=== PATIENT | female | born 1950 | race Caucasian/White ===

== ENCOUNTER → 2016-10-16 | Outpatient (REF) | payer BC, MEDICARE ==
[2016-10-16 15:51] LABS: INR 3.07
== END ==
LOC: M SFHCLACO 14:54
PROVIDERS: ATTEND Physician Assistant
DX: I48.91 Unspecified atrial fibrillation (principal); Z51.81 Encounter for therapeutic drug level monitoring; Z79.01 Long term (current) use of anticoagulants

== ENCOUNTER → 2016-11-20 | Outpatient (CLI) | payer BC, MEDICARE ==
--- NOTE | 2016-11-20 12:56 | REPMRS ---
Patient History The patient states she had a clinical breast exam in 08/2016. Patient is postmenopausal. No known family history of cancer. Digital Woman Screen Mammo: November 20, 2016 - Exam #: [id number] Bilateral CC and MLO view(s) were taken. Technologist: Michelle Cotto, Technologist Prior study comparison: November 08, 2015, digital woman screen mammo performed at [facility]. September 28, 2014, digital woman screen mammo performed at [facility]. FINDINGS: There are scattered fibroglandular densities. There has been no change in the appearance of the mammogram from the prior studies. There is a mild amount of residual fibroglandular tissue which is fairly symmetric. There is no interval development of dominant mass, architectural distortion, or clustered microcalcification suggestive of malignancy. There are scattered, small, benign calcifications of doubtful clinical significance. There are benign arterial calcifications noted in each breast. No significant changes when compared with prior studies. ASSESSMENT: BI-RADS/ACR category 2 mammogram. Benign finding(s). Recommendation Routine screening mammogram in 1 year (for women over age 40). This mammogram was interpreted with the aid of an FDA-approved computer-aided dectection system. A. Negative x-ray reports should not delay biopsy if a dominant or clinically suspicious mass is present. B. Four to eight percent of cancers are not identified by mammography. C. Adenosis and dense breast may obscure an underlying neoplasm. Electronically Signed By: Rigo Saini MD 11/20/16 [id number]
== END ==
LOC: M WHC 11:16
PROVIDERS: ATTEND Nurse Practitioner Women's Health
DX: Z12.31 Encounter for screening mammogram for malignant neoplasm of breast (principal); Z78.0 Asymptomatic menopausal state

== ENCOUNTER → 2016-11-20 | Outpatient (REF) | payer BC, MEDICARE ==
[2016-11-20 15:23] LABS: INR 2.67
== END ==
LOC: M SFHCLACO 09:14
PROVIDERS: ATTEND Physician Assistant
DX: I48.91 Unspecified atrial fibrillation (principal); Z51.81 Encounter for therapeutic drug level monitoring; Z79.01 Long term (current) use of anticoagulants

== ENCOUNTER → 2016-12-18 | Outpatient (REF) | payer BC, MEDICARE ==
[2016-12-18 15:33] LABS: INR 3.18
[2016-12-18 15:34] LABS: ALBUMIN 3.7 GM/DL (3.2-5.2); ALBUMIN/GLOBULIN RATIO 1.28 (1.00-1.93); BILIRUBIN,TOTAL 0.3 MG/DL (0.2-1.0); CALCIUM LEVEL 8.3 MG/DL (8.8-10.2); CREATININE FOR GFR 1.15 MG/DL (0.55-1.02); GLOMERULAR FILTRATION RATE 50.1 (>45); POTASSIUM SERUM 4.7 MEQ/L (3.5-5.1); TOTAL PROTEIN 6.6 GM/DL (6.4-8.2)
== END ==
LOC: M SFHCLACO 09:29
PROVIDERS: ATTEND Physician Assistant
DX: I48.91 Unspecified atrial fibrillation (principal); I10 Essential (primary) hypertension; Z51.81 Encounter for therapeutic drug level monitoring; Z79.01 Long term (current) use of anticoagulants; E55.9 Vitamin D deficiency, unspecified

== ENCOUNTER → 2017-01-15 | Outpatient (REF) | payer BC, MEDICARE ==
[2017-01-15 17:20] LABS: INR 2.93
[2017-01-15 17:37] LABS: MAGNESIUM LEVEL 2.3 MG/DL (1.8-2.4); POTASSIUM SERUM 5.1 MEQ/L (3.5-5.1)
== END ==
LOC: M SFHCLACO 08:35
PROVIDERS: ATTEND Physician Assistant
DX: L03.116 Cellulitis of left lower limb (principal); E87.8 Other disorders of electrolyte and fluid balance, not elsewhere classified; Z51.81 Encounter for therapeutic drug level monitoring; Z79.01 Long term (current) use of anticoagulants

== ENCOUNTER 2017-02-16 15:14 | Emergency (ER) | payer BC ==
[~2017-02-16] VITALS: Ht 162.6 cm; Wt 118.8 kg
[2017-02-16 15:15] VITALS: BP 156/69
[2017-02-16] MEDS ORDERED: FURO40TA2 (15:29)
[2017-02-16] MEDS ORDERED: VITA50003 (15:29)
[2017-02-16] MEDS ORDERED: CETI10TA (15:29)
[2017-02-16] MEDS ORDERED: WARF4TAB52 (15:29)
[2017-02-16] MEDS ORDERED: VERA24TASA (15:29)
[2017-02-16] MEDS ORDERED: LISI40TAB (15:29)
== END 2017-02-16 16:11 | disposition home or self-care (01) ==
LOC: M ED 15:51
DX: R06.9 Unspecified abnormalities of breathing (principal); Z51.89 Encounter for other specified aftercare; I48.91 Unspecified atrial fibrillation; Z79.01 Long term (current) use of anticoagulants; Z79.899 Other long term (current) drug therapy; Z88.6 Allergy status to analgesic agent

== ENCOUNTER → 2017-02-19 | Outpatient (REF) | payer BC, MEDICARE ==
[~2017-02-19] MED LIST: CETI10TA; FURO40TA2; LISI40TAB; VERA24TASA; VITA50003; WARF4TAB52
== END ==
LOC: M SFHCLACO 15:01
PROVIDERS: ATTEND Physician Assistant
DX: Z51.81 Encounter for therapeutic drug level monitoring (principal); Z79.01 Long term (current) use of anticoagulants

== ENCOUNTER → 2017-03-12 | Outpatient (REF) | payer BC, MEDICARE ==
[2017-03-12 15:49] LABS: INR 2.23
== END ==
LOC: M SFHCLACO 15:11
PROVIDERS: ATTEND Physician Assistant
DX: I48.91 Unspecified atrial fibrillation (principal); Z51.81 Encounter for therapeutic drug level monitoring; Z79.01 Long term (current) use of anticoagulants

== ENCOUNTER → 2017-04-09 | Outpatient (REF) | payer BC ==
[~2017-04-09] MED LIST changes: +VITA1CAP40; -VITA50003
[2017-04-09 15:26] LABS: INR 2.58
== END ==
LOC: M SFHCLACO 14:49
PROVIDERS: ATTEND Physician Assistant
DX: Z51.81 Encounter for therapeutic drug level monitoring (principal); Z79.01 Long term (current) use of anticoagulants

== ENCOUNTER → 2017-05-02 | Outpatient (REF) | payer BC, MEDICARE ==
[2017-05-02 16:36] LABS: INR 2.55
== END ==
LOC: M SFHCLACO 09:22
PROVIDERS: ATTEND Physician Assistant
DX: Z51.81 Encounter for therapeutic drug level monitoring (principal); Z79.01 Long term (current) use of anticoagulants; I48.91 Unspecified atrial fibrillation

== ENCOUNTER → 2017-05-28 | Outpatient (REF) | payer BC, MEDICARE ==
[2017-05-28 15:17] LABS: INR 2.72
== END ==
LOC: M LABDRWLA 14:50
PROVIDERS: ATTEND Physician Assistant
DX: Z51.81 Encounter for therapeutic drug level monitoring (principal); Z79.01 Long term (current) use of anticoagulants; I48.91 Unspecified atrial fibrillation

== ENCOUNTER → 2017-07-09 | Outpatient (REF) | payer BC, MEDICARE ==
[2017-07-09 15:29] LABS: INR 2.91
== END ==
LOC: M SFHCLACO 14:37
PROVIDERS: ATTEND Physician Assistant
DX: I48.91 Unspecified atrial fibrillation (principal); Z51.81 Encounter for therapeutic drug level monitoring; Z79.01 Long term (current) use of anticoagulants

== ENCOUNTER → 2017-09-03 | Outpatient (REF) | payer BC ==
[2017-09-03 16:09] LABS: INR 3.12
== END ==
LOC: M SFHCLACO 15:30
PROVIDERS: ATTEND Physician Assistant
DX: Z51.81 Encounter for therapeutic drug level monitoring (principal); Z79.01 Long term (current) use of anticoagulants

== ENCOUNTER → 2017-09-17 | Outpatient (REF) | payer BC ==
[2017-09-17 15:03] LABS: INR 2.58
== END ==
LOC: M SFHCLACO 14:34
PROVIDERS: ATTEND Physician Assistant
DX: Z79.01 Long term (current) use of anticoagulants (principal); I48.91 Unspecified atrial fibrillation

== ENCOUNTER → 2017-10-15 | Outpatient (REF) | payer BC ==
[2017-10-15 16:54] LABS: INR 3.04; PROTHROMBIN TIME 32.8 SECONDS (12.4-14.5)
== END ==
LOC: M SFHCLACO 16:06
DX: Z79.01 Long term (current) use of anticoagulants (principal); I48.91 Unspecified atrial fibrillation
CPT/HCPCS: 85610

== ENCOUNTER → 2017-10-22 | Outpatient (CLI) | payer BC, MEDICARE | LOC: M PAIN 13:00 | DX: G89.29 Other chronic pain (principal); M46.96 Unspecified inflammatory spondylopathy, lumbar region; M51.26 Other intervertebral disc displacement, lumbar region; I10 Essential (primary) hypertension; I48.91 Unspecified atrial fibrillation; J45.909 Unspecified asthma, uncomplicated; M19.90 Unspecified osteoarthritis, unspecified site; L40.9 Psoriasis, unspecified; Z79.01 Long term (current) use of anticoagulants; Z79.899 Other long term (current) drug therapy; Z88.6 Allergy status to analgesic agent; Z88.8 Allergy status to other drugs, medicaments and biological substances | CPT/HCPCS: G0463 ==

== ENCOUNTER → 2017-10-29 | Outpatient (REF) | payer BC, MEDICARE ==
[2017-10-29 15:56] LABS: PROTHROMBIN TIME 30.7 SECONDS (12.4-14.5)
== END ==
LOC: M SFHCLACO 10:01
DX: Z51.81 Encounter for therapeutic drug level monitoring (principal)
CPT/HCPCS: 85610

== ENCOUNTER → 2017-11-26 | Outpatient (CLI) | payer BC, MEDICARE | LOC: M WHC 11:31 | DX: Z12.31 Encounter for screening mammogram for malignant neoplasm of breast (principal) ==

== ENCOUNTER → 2017-12-03 | Outpatient (REF) | payer BC, MEDICARE ==
[2017-12-03 15:17] LABS: INR 2.31; PROTHROMBIN TIME 26.3 SECONDS (12.4-14.5)
== END ==
LOC: M SFHCLACO 14:40
DX: Z51.81 Encounter for therapeutic drug level monitoring (principal); Z79.01 Long term (current) use of anticoagulants
CPT/HCPCS: 85610

== ENCOUNTER → 2018-02-18 | Outpatient (REF) | payer BC, MEDICARE ==
[2018-02-18 15:03] LABS: INR 1.46; PROTHROMBIN TIME 18.1 SECONDS (12.4-14.5)
== END ==
LOC: M SFHCLACO 09:27
DX: Z51.81 Encounter for therapeutic drug level monitoring (principal); Z79.899 Other long term (current) drug therapy
CPT/HCPCS: 85610

== ENCOUNTER → 2018-03-11 | Outpatient (REF) | payer BC, MEDICARE ==
[2018-03-11 15:14] LABS: INR 2.07
== END ==
LOC: M SFHCLACO 10:02
DX: Z51.81 Encounter for therapeutic drug level monitoring (principal)
CPT/HCPCS: 85610

== ENCOUNTER → 2018-04-01 | Outpatient (REF) | payer BC, MEDICARE ==
[2018-04-01 15:09] LABS: INR 2.24; PROTHROMBIN TIME 25.2 SECONDS (12.1-14.4)
[2018-04-01 15:17] LABS: BLOOD UREA NITROGEN 29 MG/DL (7-18); CREATININE FOR GFR 0.95 MG/DL (0.55-1.30); GLUCOSE, FASTING 113 MG/DL (70-100)
[2018-04-01 15:18] LABS: ALBUMIN 3.6 GM/DL (3.2-5.2); ALBUMIN/GLOBULIN RATIO 1.03 (1.00-1.93); ALKALINE PHOSPHATASE 120 U/L (45-117); ALT/SGPT 67 U/L (12-78); ANION GAP 9 MEQ/L (8-16); AST/SGOT 45 U/L (7-37); BILIRUBIN,TOTAL 0.5 MG/DL (0.2-1.0); CALCIUM LEVEL 8.2 MG/DL (8.8-10.2); CARBON DIOXIDE LEVEL 23 MEQ/L (21-32); CHLORIDE LEVEL 112 MEQ/L (98-107); CHOLESTEROL LEVEL 123 MG/DL (<200); CHOLESTEROL RISK RATIO 2.733 (<5); GLOMERULAR FILTRATION RATE > 60.0 (>45); HDL CHOLESTEROL 45 MG/DL (>40); NON-HDL-C 78 MG/DL; POTASSIUM SERUM 4.6 MEQ/L (3.5-5.1); SODIUM LEVEL 144 MEQ/L (136-145); TOTAL PROTEIN 7.1 GM/DL (6.4-8.2); TRIGLYCERIDES LEVEL 150 MG/DL (<150)
[2018-04-01 15:20] LABS: ESTIMATED AVERAGE GLUCOSE 128 MG/DL (60-110); HEMOGLOBIN A1c 6.1 %
== END ==
LOC: M SFHCLACO 10:08
DX: Z51.81 Encounter for therapeutic drug level monitoring (principal); Z79.899 Other long term (current) drug therapy; E11.9 Type 2 diabetes mellitus without complications; I10 Essential (primary) hypertension; E55.9 Vitamin D deficiency, unspecified
CPT/HCPCS: 80053

== ENCOUNTER → 2018-04-08 | Outpatient (CLI) | payer BC, MEDICARE | LOC: M PAIN 10:30 | DX: M46.96 Unspecified inflammatory spondylopathy, lumbar region (principal); M51.26 Other intervertebral disc displacement, lumbar region; G89.29 Other chronic pain; I10 Essential (primary) hypertension; I48.91 Unspecified atrial fibrillation; E55.9 Vitamin D deficiency, unspecified; J45.909 Unspecified asthma, uncomplicated; M19.90 Unspecified osteoarthritis, unspecified site; L40.9 Psoriasis, unspecified; Z79.01 Long term (current) use of anticoagulants; Z79.899 Other long term (current) drug therapy; Z88.6 Allergy status to analgesic agent; Z88.8 Allergy status to other drugs, medicaments and biological substances | CPT/HCPCS: G0463 ==

== ENCOUNTER → 2018-04-29 | Outpatient (REF) | payer BC, MEDICARE ==
[2018-04-29 15:30] LABS: INR 2.58; PROTHROMBIN TIME 28.2 SECONDS (12.1-14.4)
== END ==
LOC: M LABDRWLA 14:48
DX: Z51.81 Encounter for therapeutic drug level monitoring (principal)
CPT/HCPCS: 85610

== ENCOUNTER → 2018-06-10 | Outpatient (CLI) | payer BC, MEDICARE | LOC: M PAIN 13:45 | DX: M46.96 Unspecified inflammatory spondylopathy, lumbar region (principal); M51.26 Other intervertebral disc displacement, lumbar region; I10 Essential (primary) hypertension; I48.91 Unspecified atrial fibrillation; E55.9 Vitamin D deficiency, unspecified; J45.909 Unspecified asthma, uncomplicated; M19.90 Unspecified osteoarthritis, unspecified site; L40.9 Psoriasis, unspecified; Z79.01 Long term (current) use of anticoagulants; Z79.899 Other long term (current) drug therapy; Z88.6 Allergy status to analgesic agent; Z88.1 Allergy status to other antibiotic agents | CPT/HCPCS: G0463 ==

== ENCOUNTER → 2018-07-01 | Outpatient (REF) | payer BC, MEDICARE ==
[2018-07-01 12:59] LABS: INR 2.78; PROTHROMBIN TIME 29.9 SECONDS (12.1-14.4)
== END ==
LOC: M SFHCADAM 09:45
DX: Z79.01 Long term (current) use of anticoagulants (principal)
CPT/HCPCS: 85610

== ENCOUNTER → 2018-08-05 | Outpatient (CLI) | payer BC, MEDICARE ==
[2018-08-05 09:42] LABS: INR 1.32; PROTHROMBIN TIME 16.6 SECONDS (12.1-14.4)
== END ==
LOC: M LAB 08:31
DX: Z51.81 Encounter for therapeutic drug level monitoring (principal); Z79.01 Long term (current) use of anticoagulants
CPT/HCPCS: 85610

== ENCOUNTER → 2018-08-05 | Outpatient (CLI) | payer BC, MEDICARE ==
[~2018-08-05] MED LIST changes: +BUPIVACAINE HCL 0.25% 30 ML VIAL As Ordered; -CETI10TA; -FURO40TA2; +ISOVUE-M 300 61% 15ML VIAL (Q9967) As Ordered; +LIDOCAINE 1% SDV INJ 30 ML VIAL As Ordered; -LISI40TAB; +TRIAMCINOLONE ACETONIDE SUSP 40 MG/ML VIAL (J3301) As Ordered; -VERA24TASA; -VITA1CAP40; -WARF4TAB52; +diazePAM 5 MG TAB As Ordered; +oxyCODONE 5MG TAB As Ordered
== END ==
LOC: M PAIN 11:00
DX: G89.29 Other chronic pain (principal); M47.816 Spondylosis without myelopathy or radiculopathy, lumbar region; M47.817 Spondylosis without myelopathy or radiculopathy, lumbosacral region; I10 Essential (primary) hypertension; I48.91 Unspecified atrial fibrillation; J45.909 Unspecified asthma, uncomplicated; M19.90 Unspecified osteoarthritis, unspecified site; L40.9 Psoriasis, unspecified; E66.01 Morbid (severe) obesity due to excess calories; Z68.41 Body mass index [BMI] 40.0-44.9, adult; Z79.01 Long term (current) use of anticoagulants; Z79.899 Other long term (current) drug therapy; Z88.6 Allergy status to analgesic agent; Z88.8 Allergy status to other drugs, medicaments and biological substances
CPT/HCPCS: J3301

== ENCOUNTER → 2018-08-26 | Outpatient (CLI) | payer BC, MEDICARE | LOC: M PAIN 11:30 | DX: M46.96 Unspecified inflammatory spondylopathy, lumbar region (principal); M51.26 Other intervertebral disc displacement, lumbar region; I10 Essential (primary) hypertension; I48.91 Unspecified atrial fibrillation; E55.9 Vitamin D deficiency, unspecified; J45.909 Unspecified asthma, uncomplicated; M19.90 Unspecified osteoarthritis, unspecified site; L40.9 Psoriasis, unspecified; E66.01 Morbid (severe) obesity due to excess calories; Z68.42 Body mass index [BMI] 45.0-49.9, adult; Z79.01 Long term (current) use of anticoagulants; Z79.899 Other long term (current) drug therapy; Z88.6 Allergy status to analgesic agent; Z88.8 Allergy status to other drugs, medicaments and biological substances | CPT/HCPCS: G0463 ==

== ENCOUNTER → 2018-09-02 | Outpatient (REF) | payer BC, MEDICARE ==
[2018-09-02 14:34] LABS: INR 1.59; PROTHROMBIN TIME 19.2 SECONDS (12.1-14.4)
== END ==
LOC: M SFHCADAM 10:05
DX: Z79.01 Long term (current) use of anticoagulants (principal)
CPT/HCPCS: 85610

== ENCOUNTER → 2018-09-16 | Outpatient (REF) | payer BC, MEDICARE ==
[~2018-09-16] MED LIST changes: -BUPIVACAINE HCL 0.25% 30 ML VIAL As Ordered; +CETI10TA; +FURO40TA2; -ISOVUE-M 300 61% 15ML VIAL (Q9967) As Ordered; -LIDOCAINE 1% SDV INJ 30 ML VIAL As Ordered; +LISI40TAB; -TRIAMCINOLONE ACETONIDE SUSP 40 MG/ML VIAL (J3301) As Ordered; +VERA24TASA; +VITA50005; +WARF4TAB52; -diazePAM 5 MG TAB As Ordered; -oxyCODONE 5MG TAB As Ordered
[2018-09-16 13:51] LABS: INR 3.48; PROTHROMBIN TIME 35.8 SECONDS (12.1-14.4)
== END ==
LOC: M SFHCADAM 10:01
PROVIDERS: ATTEND Physician Assistant
DX: Z51.81 Encounter for therapeutic drug level monitoring (principal); Z79.01 Long term (current) use of anticoagulants

== ENCOUNTER → 2018-10-07 | Outpatient (REF) | payer BC, MEDICARE ==
[~2018-10-07] MED LIST changes: +LISI40TA; -LISI40TAB
[2018-10-07 13:43] LABS: ALBUMIN 3.6 GM/DL (3.2-5.2); BILIRUBIN,TOTAL 0.5 MG/DL (0.2-1.0); CALCIUM LEVEL 8.6 MG/DL (8.8-10.2); CHOLESTEROL RISK RATIO 2.814 (<5); CREATININE FOR GFR 1.16 MG/DL (0.55-1.30); GLOMERULAR FILTRATION RATE 49.3 (>45); POTASSIUM SERUM 4.8 MEQ/L (3.5-5.1)
[2018-10-07 13:50] LABS: TOTAL 25(OH) VITAMIN D 45.8 NG/ML (30.0-100.0)
== END ==
LOC: M SFHCADAM 10:19
PROVIDERS: ATTEND Physician Assistant
DX: I10 Essential (primary) hypertension (principal); E11.9 Type 2 diabetes mellitus without complications; E55.9 Vitamin D deficiency, unspecified

== ENCOUNTER → 2018-10-21 | Outpatient (REF) | payer BC, MEDICARE ==
[2018-10-21 19:53] LABS: INR 4.34; PROTHROMBIN TIME 42.6 SECONDS (12.1-14.4)
== END ==
LOC: M SFHCLACO 18:55 → M LABDRWAD 18:55
PROVIDERS: ATTEND Physician Assistant
DX: Z79.01 Long term (current) use of anticoagulants (principal)

== ENCOUNTER → 2018-10-31 | Outpatient (REF) | payer BC, MEDICARE ==
[2018-10-31 21:11] LABS: INR 3.65; PROTHROMBIN TIME 37.2 SECONDS (12.1-14.4)
== END ==
LOC: M SFHCLACO 12:47
PROVIDERS: ATTEND Physician Assistant
DX: Z51.81 Encounter for therapeutic drug level monitoring (principal); Z79.01 Long term (current) use of anticoagulants

== ENCOUNTER → 2018-11-11 | Outpatient (REF) | payer BC, MEDICARE ==
[2018-11-11 13:08] LABS: INR 3.36; PROTHROMBIN TIME 34.8 SECONDS (12.1-14.4)
[2018-11-11 13:14] LABS: ALBUMIN 3.5 GM/DL (3.2-5.2); BILIRUBIN,DIRECT 0.1 MG/DL (0.0-0.2); BILIRUBIN,TOTAL 0.3 MG/DL (0.2-1.0); TOTAL PROTEIN 6.5 GM/DL (6.4-8.2)
== END ==
LOC: M SFHCADAM 09:34
PROVIDERS: ATTEND Physician Assistant
DX: Z79.899 Other long term (current) drug therapy (principal); Z79.01 Long term (current) use of anticoagulants

== ENCOUNTER → 2018-11-25 | Outpatient (REF) | payer BC, MEDICARE ==
[2018-11-25 12:55] LABS: INR 3.98; PROTHROMBIN TIME 39.8 SECONDS (12.1-14.4)
== END ==
LOC: M SFHCADAM 12:09 → M SFHCLACO 12:09
PROVIDERS: ATTEND Physician Assistant
DX: Z79.01 Long term (current) use of anticoagulants (principal)

== ENCOUNTER → 2018-11-25 | Outpatient (CLI) | payer BC, MEDICARE ==
--- NOTE | 2018-12-08 00:43 | ECWPNPC ---
PATIENT NAME: ROBIN NGUYỄN : 1950 GENDER: FEMALE VISIT DATE: 11/25/2018 DISCHARGE DATE: 11/25/18 1402 VISIT LOCKED DATE TIME: PHYSICIAN: BUDDY BILLINGSLEY RESOURCE: BUDDY BILLINGSLEY REASON FOR APPOINTMENT 1. BACK HISTORY OF PRESENT ILLNESS HISTORY OF PRESENT ILLNESS: HERE FOR F/U OF CHRONIC LOW BACK PAIN.RATING PAIN VAS 3/10.OVERALL DOING FINE. PAIN THE PATIENT DESCRIBES THE PAIN... FALL RISK SCREENING: SCREENING : NO FALLS IN THE PAST YEAR. CURRENT MEDICATIONS TAKING LISINOPRIL 40 MG TABLET 1 TABLET ORALLY ONCE A DAY TAKING VERAPAMIL HCL 240 MG TABLET EXTENDED RELEASE 1 TABLET EVERY MORNING WITH FOOD ORALLY ONCE A DAY TAKING FUROSEMIDE 40 MG TABLET 1 TABLET ORALLY TWICE A DAY TAKING COUMADIN 5 MG TABLET 1 TABLET ORALLY ONCE A DAY TAKING ALBUTEROL 90 MCG/ACT AEROSOL SOLUTION 2 INHALATION NEEDED TAKING DRISDOL 76278 UNIT CAPSULE 1 CAPSULE ORALLY ONCE A MONTH TAKING FLONASE 50 MCG/ACT SUSPENSION 2 SPRAYS IN EACH NOSTRIL NASALLY DAILY NEEDED TAKING CETIRIZINE HCL 10 MG TABLET 1 TABLET ORALLY ONCE A DAY TAKING TYLENOL 325 MG TABLET 1 TABLET ORALLY EVERY 6 HOURS NEEDED TAKING VITAMIN C 500 MG CAPSULE 1 TABLET ORALLY ONCE A DAY TAKING MAGNESIUM 200 MG TABLET 2 TABLETS WITH A MEAL ORALLY ONCE A DAY TAKING CALTRATE 600+D 600-400 MG-UNIT TABLET 1 TABLET ORALLY TWICE A DAY NOT-TAKING COUMADIN 1 MG TABLET DIRECTED ORALLY ONCE A DAY MEDICATION LIST REVIEWED AND RECONCILED WITH THE PATIENT PAST MEDICAL HISTORY HYPERTENSION ATRIAL FIBRILLATION EDEMA VITAMIN D DEFICIENCY ASTHMA OSTEOARTHRITIS PSORIASIS LUMBAR FACET ARTHROPATHY PROTRUDED LUMBAR DISC ALLERGIES ASPIRIN: SNEEZING AND COUGHING: SIDE EFFECTS KEFLEX: THRUSH AND SWOLLEN TONGUE: SIDE EFFECTS NAPROXEN: WHEEZING, SHORTNESS OF BREATH: SIDE EFFECTS SURGICAL HISTORY SURGERY ON LEFT GREAT TOE 1976 1981 FAMILY HISTORY FATHER: MOTHER: 58 YRS, DIAGNOSED WITH DIABETES SOCIAL HISTORY GENERAL: TOBACCO USE ARE YOU A:NONSMOKER , NEVER SMOKER LUNG CANCER SCREENING SMOKING STATUS:NON SMOKER BMI CARE GOAL FOLLOW-UP ABOVE NORMAL BMI FOLLOW-UPDIETARY MANAGEMENT EDUCATION, GUIDANCE, AND COUNSELING ALCOHOL SCREENING DID YOU HAVE A DRINK CONTAINING ALCOHOL IN THE PAST YEAR?NO POINTS0 INTERPRETATIONNEGATIVE RECREATIONAL DRUG USE DENIES. CAFFEINE CAFFEINE USE?YES HOW OFTEN AND HOW MUCH? ONE CUP OF COFFEE A DAY SEXUAL HX HAD SEX IN THE LAST 12 MONTHS (VAGINAL, ORAL, OR ANAL)?YES HAVE YOU EVER HAD AN STD?NO HIV / HEP-C SCREENING HIV TEST OFFERED TO PATIENT:YES DATE OFFERED:01/08/2017 TEST ACCEPTED:NO HEP-C TEST OFFERED TO PATIENT:YES DATE OFFERED:01/08/2017 REASON:PATIENT DECLINED TEST ACCEPTED:NO REASON:PATIENT DECLINED RESTORATIONISM [id number] NONE LANGUAGE PORTUGUESE. 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 EXERCISE: WALKS. MARITAL STATUS: . OTHERS AT HOME: SPOUSE. PAIN CLINIC PFS, CLERGY, PUBLIC HEALTH REFERRALS WAS THE PROVIDER NOTIFIED OF ANY PERTINENT INFO?YES HAS THE PATIENT BEEN EDUCATED REGARDING HIS/HER PLAN OF CARE?YES HAS THE PATIENT BEEN EDUCATED REGARDING PAIN, THE RISK FOR PAIN, THE IMPORTANCE OF EFFECTIVE PAIN MANAGEMENT, AND THE PAIN ASSESSMENT PROCESS?YES PROCEDURE APPT, IV, PO SEDATION ADVANCE DIRECTIVE ADVANCE DIRECTIVE DISCUSSED WITH PATIENT:YES DECLINED, INFORMATION OFFERED AND DECLINED REVEIWED WITH PT 06/10/18 0969 BV. HOSPITALIZATION/MAJOR DIAGNOSTIC PROCEDURE SURGERIES ABOVE REVIEW OF SYSTEMS REVIEWED BY: PROVIDER: BUDDY SU . CONSTITUTIONAL: ANY CHANGE IN YOUR MEDICAL CONDITION? NO . CHILLS NO . FEVER NO . INFECTION: DO YOU HAVE NEW INFECTIONS? NO . DO YOU HAVE HISTORY OF MRSA? NO . MUSCULOSKELETAL: ANY NEW PATTERNS OF PAIN OR NUMBNESS? NO . GASTROENTEROLOGY: ANY NEW CHANGE IN BOWEL CONTROL? NO . GENITOURINARY: ANY NEW CHANGE IN BLADDER CONTROL? NO . IS THERE A CHANCE YOU COULD BE ? NO . HEMATOLOGY/LYMPH: DO YOU TAKE ANY BLOOD THINNERS? (FOR EXAMPLE- COUMADIN, PLAVIX, AGGRENOX, PLATEL, PRADAXA, OR XARELTO) YES . WHEN WAS YOUR LAST DOSE? DATE: 11/24/18 TIME: 2129 . NEUROLOGY: HAVE YOU FALLEN IN THE PAST 12 MONTHS? NO . ANY NEW EXTREMITY NUMBNESS OR WEAKNESS? NO . CARDIOLOGY: DO YOU HAVE A PACEMAKER OR DEFIBRILLATOR? NO . RESPIRATORY: HAVE YOU BEEN SICK IN THE PAST WEEK? NO . FEVER NO . FLU LIKE SYMPTOMS? NO . COUGH NO . INTEGUMENTARY: DO YOU HAVE ANY RASHES OR OPEN SORES? NO . ALLERGIC/IMMUNO: ARE YOU ALLERGIC TO IV DYE? NO . ANY NEW ALLERGIES? NO. RECEIVED A TETANUS VACCINE SEPTEMBER 2018. . PSYCHIATRIC: DO YOU HAVE THOUGHTS OF HURTING YOURSELF OR SOMEONE ELSE? NO . ARE YOU ABUSED, NEGLECTED, OR IN AN UNSAFE ENVIRONMENT? NO . ENDOCRINOLOGY: ARE YOU DIABETIC? BORDERLINE . OTHER: DO YOU NEED ANY PRESCRIPTIONS? NO . IF YES, PLEASE LIST: ____ . ANY NEW PROBLEMS WITH YOUR MEDICATIONS? NO . WHEN DID YOU LAST EAT? ____ . WHEN DID YOU LAST DRINK? ____ . WHAT DID YOU LAST DRINK? ____ . NAME OF PERSON DRIVING YOU HOME? ____ . DO YOU HAVE ANY OTHER QUESTIONS OR CONCERNS NO . VITAL SIGNS WT 261.4 LBS, HT 63.50 IN, BMI 45.57 INDEX, BP 127/68 MM HG, HR 99 /MIN, RR 16 /MIN, TEMP 97.3 F, OXYGEN SAT % 96%, NA INITIALS SC 13:27, REVIEWED BY: MAXIME. EXAMINATION GENERAL EXAMINATION: GENERAL APPEARANCE:AWAKE,ALERT ,PLEAASANT . PSYCHAFFECT NORMAL . LUNGS:LUNG PRICE ARE CLEAR TO AUSCULTATION BILATERALLY. GOOD MOVEMENT OF AIR . HEART:S1, S2 IN A REGULAR RATE AND RHYTHM. NO SIGNIFICANT MURMURS, RUBS OR GALLOPS NOTED . 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 PROCEDURE CODES FA211 ESTABILISHED PATIENT [facility] CHARGE DISPOSITION & COMMUNICATION FOLLOW UP 3 MONTHS ELECTRONICALLY SIGNED BY SHARLENE MONTERROSO ON 12/07/2018 AT 02:57 PM EDT DISCLAIMER : THIS IS A VISIT SUMMARY EXTRACTED FROM THE [employer] CHART. IT IS NOT A COPY OF THE [employer] PROGRESS NOTE. YURY
== END ==
LOC: M PAIN 13:00
PROVIDERS: ATTEND Nurse Practitioner Family
DX: M46.96 Unspecified inflammatory spondylopathy, lumbar region (principal); M51.26 Other intervertebral disc displacement, lumbar region; G89.29 Other chronic pain; I10 Essential (primary) hypertension; I48.91 Unspecified atrial fibrillation; J45.909 Unspecified asthma, uncomplicated; M19.90 Unspecified osteoarthritis, unspecified site; L40.9 Psoriasis, unspecified; E66.01 Morbid (severe) obesity due to excess calories; Z68.42 Body mass index [BMI] 45.0-49.9, adult; Z79.01 Long term (current) use of anticoagulants; Z79.899 Other long term (current) drug therapy; Z88.6 Allergy status to analgesic agent; Z88.8 Allergy status to other drugs, medicaments and biological substances

== ENCOUNTER → 2018-12-09 | Outpatient (REF) | payer BC, MEDICARE ==
[2018-12-09 13:50] LABS: INR 2.51; PROTHROMBIN TIME 27.6 SECONDS (12.1-14.4)
== END ==
LOC: M LABDRWAD 12:07
PROVIDERS: ATTEND Physician Assistant
DX: Z79.01 Long term (current) use of anticoagulants (principal)

== ENCOUNTER → 2018-12-30 | Outpatient (REF) | payer BC ==
[2018-12-30 13:05] LABS: INR 3.43; PROTHROMBIN TIME 35.4 SECONDS (12.1-14.4)
== END ==
LOC: M LABDRWAD 12:17
PROVIDERS: ATTEND Physician Assistant
DX: I10 Essential (primary) hypertension (principal); I48.91 Unspecified atrial fibrillation

== ENCOUNTER → 2019-01-13 | Outpatient (REF) | payer BC ==
[2019-01-13 13:48] LABS: INR 3.31; PROTHROMBIN TIME 34.4 SECONDS (12.1-14.4)
== END ==
LOC: M LABDRWAD 12:43
PROVIDERS: ATTEND Physician Assistant
DX: Z79.01 Long term (current) use of anticoagulants (principal)

== ENCOUNTER → 2019-01-27 | Outpatient (REF) | payer BC ==
[2019-01-27 15:41] LABS: INR 2.47; PROTHROMBIN TIME 27.3 SECONDS (12.1-14.4)
== END ==
LOC: M SFHCLACO 15:13
PROVIDERS: ATTEND Physician Assistant
DX: Z79.01 Long term (current) use of anticoagulants (principal)

== ENCOUNTER → 2019-02-03 | Outpatient (CLI) | payer BC, MEDICARE ==
--- NOTE | 2019-02-25 01:57 | ECWPNPC ---
PATIENT NAME: ROBIN NGUYỄN : 1950 GENDER: FEMALE VISIT DATE: 02/03/2019 DISCHARGE DATE: 02/03/19 1341 VISIT LOCKED DATE TIME: PHYSICIAN: BUDDY BILLINGSLEY RESOURCE: BUDDY BILLINGSLEY REASON FOR APPOINTMENT 1. BACK HISTORY OF PRESENT ILLNESS HISTORY OF PRESENT ILLNESS: HERE FOR F/U OF CHRONIC LOW BACK PAIN.WAS DOING WELL UP UNTIL ABOUT 1 MONTH AGO.HAS RESPONDED WELL TO BILAT. LUMBAR FACET BLOCKS IN PAST.RATING PAIN VAS 5/10. PAIN THE PATIENT DESCRIBES THE PAIN... FALL RISK SCREENING: SCREENING :NO FALLS REPORTED IN THE LAST YEAR CURRENT MEDICATIONS TAKING LISINOPRIL 40 MG TABLET 1 TABLET ORALLY ONCE A DAY TAKING COUMADIN 5 MG TABLET 1 TABLET ORALLY ONCE A DAY (TAKES 2.5MG ON SAT, , .) TAKES 5MG ALL OTHER DAYS TAKING ALBUTEROL 90 MCG/ACT AEROSOL SOLUTION 2 INHALATION NEEDED TAKING DRISDOL 36321 UNIT CAPSULE 1 CAPSULE ORALLY ONCE A MONTH TAKING FLONASE 50 MCG/ACT SUSPENSION 2 SPRAYS IN EACH NOSTRIL NASALLY DAILY NEEDED TAKING CETIRIZINE HCL 10 MG TABLET 1 TABLET ORALLY ONCE A DAY TAKING TYLENOL 325 MG TABLET 1 TABLET ORALLY EVERY 6 HOURS NEEDED TAKING VITAMIN C 500 MG CAPSULE 1 TABLET ORALLY ONCE A DAY TAKING MAGNESIUM 200 MG TABLET 2 TABLETS WITH A MEAL ORALLY ONCE A DAY TAKING CALTRATE 600+D 600-400 MG-UNIT TABLET 1 TABLET ORALLY TWICE A DAY TAKING FUROSEMIDE 40 MG TABLET 1 TABLET ORALLY TWICE A DAY TAKING VERAPAMIL HCL 240 MG TABLET EXTENDED RELEASE 1 TABLET EVERY MORNING WITH FOOD ORALLY ONCE A DAY NOT-TAKING COUMADIN 1 MG TABLET DIRECTED ORALLY ONCE A DAY DISCONTINUED LISINOPRIL 40 40 MG TABLET 1 TABLET ORALLY ONCE A DAY, NOTES: DUPLICATE MEDICATION LIST REVIEWED AND RECONCILED WITH THE PATIENT PAST MEDICAL HISTORY HYPERTENSION ATRIAL FIBRILLATION EDEMA VITAMIN D DEFICIENCY ASTHMA OSTEOARTHRITIS PSORIASIS LUMBAR FACET ARTHROPATHY PROTRUDED LUMBAR DISC ALLERGIES ASPIRIN: SNEEZING AND COUGHING - SIDE EFFECTS KEFLEX: THRUSH AND SWOLLEN TONGUE - SIDE EFFECTS NAPROXEN: WHEEZING, SHORTNESS OF BREATH - SIDE EFFECTS SURGICAL HISTORY SURGERY ON LEFT GREAT TOE 1976 1981 FAMILY HISTORY FATHER: MOTHER: 58 YRS, DIAGNOSED WITH DIABETES SOCIAL HISTORY GENERAL: TOBACCO USE ARE YOU A:NONSMOKER , NEVER SMOKER HIV / HEP-C SCREENING HIV TEST OFFERED TO PATIENT:YES DATE OFFERED:01/08/2017 TEST ACCEPTED:NO HEP-C TEST OFFERED TO PATIENT:YES DATE OFFERED:01/08/2017 REASON:PATIENT DECLINED TEST ACCEPTED:NO REASON:PATIENT DECLINED OTHERS AT HOME: SPOUSE. 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 LANGUAGE SAMI. BMI CARE GOAL FOLLOW-UP ABOVE NORMAL BMI FOLLOW-UPDIETARY MANAGEMENT EDUCATION, GUIDANCE, AND COUNSELING RECREATIONAL DRUG USE DENIES. EXERCISE: WALKS. LEARNING BARRIERS / SPECIAL NEEDS CHANGE FROM LAST VISIT?NO BARRIERS TO LEARNING?NO HEARING IMPAIRED?NO VISION IMPAIRED?YES COGNITIVELY IMPAIRED?NO :CORRECTIVE LENSES READINESS TO LEARN?YES LEARNING PREFERENCES?NO LEARNING CAPABILITIES PRESENT?YES EMOTIONAL BARRIERS?NO SPECIAL DEVICES?NO MANAGER AEROSPACE NEEDED?NO LUNG CANCER SCREENING SMOKING STATUS:NON SMOKER PAIN CLINIC PFS, CLERGY, PUBLIC HEALTH REFERRALS WAS THE PROVIDER NOTIFIED OF ANY PERTINENT INFO?YES HAS THE PATIENT BEEN EDUCATED REGARDING HIS/HER PLAN OF CARE?YES HAS THE PATIENT BEEN EDUCATED REGARDING PAIN, THE RISK FOR PAIN, THE IMPORTANCE OF EFFECTIVE PAIN MANAGEMENT, AND THE PAIN ASSESSMENT PROCESS?YES PROCEDURE APPT, IV, PO SEDATION LATEX QUESTIONNAIRE LATEX ALLERGY : HAVE YOU EVER DEVELOPED ANY TYPE OF REACTION AFTER HANDLING LATEX PRODUCTS SUCH RUBBER GLOVES, CONDOMS, DIAPHRAGMS, BALLOONS, SOCKS, OR UNDERWEAR?NO LATEX ALLERGY : HAVE YOU EVER DEVELOPED ANY TYPE OF REACTION DURING OR AFTER DENTAL APPOINTMENT, VAGINAL/RECTAL EXAMINATION, SURGICAL PROCEDURE, OR ANY OTHER EXPOSURE?NO LATEX RISK : HAVE YOU EVER HAD ANY DIFFICULTY BREATHING OR HIVES AFTER EATING OR HANDLING ANY FRUITS, OR VEGETABLES; SUCH KIWI, BANANAS, STONE FRUITS, OR CHESTNUTSNO LATEX RISK : DO YOU HAVE A PREVIOUS PERSONAL HISTORY OF MORE THAN NINE SURGERIES, SPINA BIFIDA, OR REPEATED CATHERTIZATIONS? NO LATEX RISK : ARE YOU FREQUENTLY EXPOSED TO LATEX PRODUCTS IN YOUR OCCUPATION?NO DATE ASKED : 02/03/2019 CAFFEINE CAFFEINE USE?YES HOW OFTEN AND HOW MUCH? ONE CUP OF COFFEE A DAY ADVANCE DIRECTIVE ADVANCE DIRECTIVE DISCUSSED WITH PATIENT:YES DECLINED, INFORMATION OFFERED AND DECLINED 02/03/19 ISLAM [id number] NONE MARITAL STATUS: . ALCOHOL SCREENING DID YOU HAVE A DRINK CONTAINING ALCOHOL IN THE PAST YEAR?NO POINTS0 INTERPRETATIONNEGATIVE OCCUPATION: [employer]. SEXUAL HX HAD SEX IN THE LAST 12 MONTHS (VAGINAL, ORAL, OR ANAL)?YES HAVE YOU EVER HAD AN STD?NO REVEIWED WITH PT 06/10/18 1408 BVREVIEWED WITH PT 02/03/19 1301 BV. HOSPITALIZATION/MAJOR DIAGNOSTIC PROCEDURE SURGERIES ABOVE REVIEW OF SYSTEMS REVIEWED BY: PROVIDER: BUDDY SU . CONSTITUTIONAL: ANY CHANGE IN YOUR MEDICAL CONDITION? NO . CHILLS NO . FEVER NO . INFECTION: DO YOU HAVE NEW INFECTIONS? NO . DO YOU HAVE HISTORY OF MRSA? NO . MUSCULOSKELETAL: ANY NEW PATTERNS OF PAIN OR NUMBNESS? YES, PT STATES PAIN IN LOW BACK HAS BEEN MORE INTENSE FOR THE PAST MONTH . GASTROENTEROLOGY: ANY NEW CHANGE IN BOWEL CONTROL? NO . GENITOURINARY: ANY NEW CHANGE IN BLADDER CONTROL? NO . IS THERE A CHANCE YOU COULD BE ? NO . HEMATOLOGY/LYMPH: DO YOU TAKE ANY BLOOD THINNERS? (FOR EXAMPLE- COUMADIN, PLAVIX, AGGRENOX, PLATEL, PRADAXA, OR XARELTO) YES, COUMADIN . WHEN WAS YOUR LAST DOSE? 02/02/19 4090 . NEUROLOGY: HAVE YOU FALLEN IN THE PAST 12 MONTHS? NO . ANY NEW EXTREMITY NUMBNESS OR WEAKNESS? NO . CARDIOLOGY: DO YOU HAVE A PACEMAKER OR DEFIBRILLATOR? NO . RESPIRATORY: HAVE YOU BEEN SICK IN THE PAST WEEK? NO . FEVER NO . FLU LIKE SYMPTOMS? NO . COUGH NO . INTEGUMENTARY: DO YOU HAVE ANY RASHES OR OPEN SORES? YES, PSORIASIS . ALLERGIC/IMMUNO: ARE YOU ALLERGIC TO IV DYE? NO . ANY NEW ALLERGIES? NO . PSYCHIATRIC: DO YOU HAVE THOUGHTS OF HURTING YOURSELF OR SOMEONE ELSE? NO . ARE YOU ABUSED, NEGLECTED, OR IN AN UNSAFE ENVIRONMENT? NO . ENDOCRINOLOGY: ARE YOU DIABETIC? NO . OTHER: DO YOU NEED ANY PRESCRIPTIONS? NO . IF YES, PLEASE LIST: ____ . ANY NEW PROBLEMS WITH YOUR MEDICATIONS? NO . WHEN DID YOU LAST EAT? ____ . WHEN DID YOU LAST DRINK? ____ . WHAT DID YOU LAST DRINK? ____ . NAME OF PERSON DRIVING YOU HOME? ____ . DO YOU HAVE ANY OTHER QUESTIONS OR CONCERNS NO . VITAL SIGNS WT 260.4 LBS, HT 63.50 IN, BMI 45.40 INDEX, BP 141/69 MM HG, HR 85 /MIN, RR 16 /MIN, TEMP 96.6 F, OXYGEN SAT % 96%, NA INITIALS SC 12:55, REVIEWED BY: BV. EXAMINATION GENERAL EXAMINATION: GENERAL APPEARANCE:ALERT. PSYCHAFFECT NORMAL. NECK:TRACHEA MIDLINE. NO CERVICAL OR SUPRACLAVICULAR LYMPHADENOPATHY NOTED. LUNGS:LUNG PRICE ARE CLEAR TO AUSCULTATION BILATERALLY. GOOD MOVEMENT OF AIR. HEART:S1, S2 IN A REGULAR RATE AND RHYTHM. NO SIGNIFICANT MURMURS, RUBS OR GALLOPS NOTED. MUSCULOSKELETAL:3/5 RIGHT-55LEFT MST. LUMBAR SACRAL SPINEINSPECTION-PSORIATIC PLAQUES LUMBAR SPINE/PARASPINAL , PALPATION: + FOR PAIN OVER L/S SPINE. + FOR PAIN OVER L/S PARSPINALS SPECIFIC POINT TENDERNESS OVER BILAT. LUMBAR FACETS. DIAGNOSTIC TESTS REVIEWEDMRI L/S [id number]-[id number]. 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 OTHERS NOTES: BILAT. L4/5-L5/S1 LFBT. PREVENTIVE MEDICINE PAIN CLINIC TEACHING: PROCEDURE TEACHING PT GIVEN WRITTEN AND VERBAL PRE-PROCEDURE INSTRUCTIONS. INSTRUCTED TO HOLD COUMADIN 5 FULL DAYS PRIOR TO PROCEDURE AND ALSO ORDER GIVEN TO HAVE STAT PT/INR DONE DAY OF PROCEDURE. PT VERBALIZES UNDERSTANDING OF ALL INSTRUCTIONS. RAVEN GABRIEL 02/03/2019 1:42:46 PM > . PROCEDURE CODES FA211 ESTABILISHED PATIENT [facility]ILITY CHARGE DISPOSITION & COMMUNICATION FOLLOW UP POST (REASON: BILAT. L4/5-L5/S1 LFBT) ELECTRONICALLY SIGNED BY SHARLENE MONTERROSO ON 02/24/2019 AT 03:19 PM EDT DISCLAIMER : THIS IS A VISIT SUMMARY EXTRACTED FROM THE [employer] CHART. IT IS NOT A COPY OF THE [employer] PROGRESS NOTE. YURY
== END ==
LOC: M PAIN 13:00
PROVIDERS: ATTEND Nurse Practitioner Family
DX: M46.96 Unspecified inflammatory spondylopathy, lumbar region (principal); M51.26 Other intervertebral disc displacement, lumbar region; G89.29 Other chronic pain; I10 Essential (primary) hypertension; J45.909 Unspecified asthma, uncomplicated; M19.90 Unspecified osteoarthritis, unspecified site; L40.9 Psoriasis, unspecified; E66.01 Morbid (severe) obesity due to excess calories; Z68.42 Body mass index [BMI] 45.0-49.9, adult; Z79.01 Long term (current) use of anticoagulants; Z79.899 Other long term (current) drug therapy; Z88.6 Allergy status to analgesic agent; Z88.8 Allergy status to other drugs, medicaments and biological substances; Z86.79 Personal history of other diseases of the circulatory system

== ENCOUNTER → 2019-02-10 | Outpatient (CLI) | payer BC ==
--- NOTE | 2019-02-10 16:27 | REPMRS ---
Patient History The patient states she had a clinical breast exam in 12/2018. No known family history of cancer. Digital Woman Screen Mammo: February 10, 2019 - Exam #: [id number] Bilateral CC and MLO view(s) were taken. Technologist: Nadine Jung, Technologist Prior study comparison: November 26, 2017, digital woman screen mammo performed at [facility]. November 20, 2016, digital woman screen mammo performed at [facility]. November 08, 2015, digital woman screen mammo performed at [facility]. FINDINGS: There are scattered fibroglandular densities. There has been no change in the appearance of the mammogram from the prior studies. There is a mild amount of scattered fibroglandular density which is fairly symmetric. There is no interval development of dominant mass, architectural distortion, or clustered microcalcification suggestive of malignancy. 3-D tomosynthesis shows no additional findings. Assessment: BI-RADS/ACR category 1 mammogram. Negative Mammogram. Recommendation Routine screening mammogram of both breasts in 1 year (for women over age 40). This patient's Lifetime Breast Cancer RIsk is estimated at 4.5 %. This mammogram was interpreted with the aid of an FDA-approved computer-aided dectection system. Electronically Signed By: Arslan Neff MD 02/10/19 [id number]
--- NOTE | 2019-02-12 14:08 | DEXA ---
AP SPINE L1 - L4 1.130 -0.5 1.1 LT FEMUR TOTAL 0.915 -0.7 0.7 LT NECK 0.967 -0.5 1.2 RT FEMUR TOTAL 0.850 -1.3 0.2 RT NECK 0.783 -1.8 -0.2 TOTAL BODY TOTAL OTHER COMMENTS: Normal bone densitometry of the spine. Normal bone densitometry of the left hip. There is low bone density of the right hip. The density of the spine has decreased 3.5% since the initial exam on 06/05/2005. The spine density has decreased 7.4% since the most recent exam on 08/03/2008. The density of the left hip has decreased 18.1% since the initial exam on 06/05/2005. The density of the left hip has decreased 12.9% since the most recent exam on 08/03/2008. The density of the right hip has decreased 21.3% since the initial exam on 06/05/2005. The density of the right hip has decreased 20.3% since the most recent exam on 08/03/2008. FOLLOW-UP: Recommendation for the next bone density exam: 2 years. YURY
== END ==
LOC: M WHC 13:40
PROVIDERS: ATTEND Nurse Practitioner Women's Health
DX: Z12.31 Encounter for screening mammogram for malignant neoplasm of breast (principal); N95.8 Other specified menopausal and perimenopausal disorders

== ENCOUNTER → 2019-02-24 | Outpatient (REF) | payer BC ==
[2019-02-24 12:49] LABS: INR 2.39; PROTHROMBIN TIME 26.6 SECONDS (12.1-14.4)
== END ==
LOC: M LABDRWAD 12:04
PROVIDERS: ATTEND Physician Assistant
DX: Z79.01 Long term (current) use of anticoagulants (principal)

== ENCOUNTER → 2019-03-24 | Outpatient (CLI) | payer BC, MEDICARE ==
[~2019-03-24] MED LIST changes: +BUPIVACAINE HCL 0.25% 30 ML VIAL As Ordered ONE; +ISOVUE-M 300 61% 15ML VIAL (Q9967) As Ordered ONE; +LIDOCAINE 1% SDV INJ 30 ML VIAL As Ordered ONE; +TRIAMCINOLONE ACETONIDE SUSP 40 MG/ML VIAL (J3301) As Ordered ONE; +diazePAM 5 MG TAB As Ordered ONE; +oxyCODONE 5MG TAB As Ordered ONE
--- NOTE | 2019-03-24 14:59 | REP ---
Partial lumbar spine series: Five views . History: Injection procedure for pain. 27 seconds of fluoroscopy time is reported. Findings: A sequence of five fluoroscopically obtained last image hold procedural spot radiographs of the lumbar spine document needle position and contrast injection associated with injection procedure. Electronically Signed by Aaron Neff MD 03/24/2019 02:50 P
--- NOTE | 2019-04-02 00:55 | ECWPNPC ---
PATIENT NAME: ROBIN NGUYỄN : 1950 GENDER: FEMALE VISIT DATE: 03/24/2019 DISCHARGE DATE: 03/24/19 1356 VISIT LOCKED DATE TIME: PHYSICIAN: HORACIO SMITH MD RESOURCE: HORACIO SMITH MD REASON FOR APPOINTMENT 1. BILAT. L4/5-L5/S1 LFBT. HISTORY OF PRESENT ILLNESS HISTORY OF PRESENT ILLNESS: PAIN THE PATIENT DESCRIBES THE PAIN... FALL RISK SCREENING: SCREENING :NO FALLS REPORTED IN THE LAST YEAR CURRENT MEDICATIONS TAKING LISINOPRIL 40 MG TABLET 1 TABLET ORALLY ONCE A DAY, NOTES: 03-24-19699 TAKING COUMADIN 5 MG TABLET 1 TABLET ORALLY ONCE A DAY (TAKES 2.5MG ON SAT, , .) TAKES 5MG ALL OTHER DAYS, NOTES: [id number] TAKING ALBUTEROL 90 MCG/ACT AEROSOL SOLUTION 2 INHALATION NEEDED, NOTES: NOT LATELY TAKING FLONASE 50 MCG/ACT SUSPENSION 2 SPRAYS IN EACH NOSTRIL NASALLY DAILY NEEDED, NOTES: NOT LATELY TAKING CETIRIZINE HCL 10 MG TABLET 1 TABLET ORALLY ONCE A DAY, NOTES: 03-24-19799 TAKING TYLENOL 325 MG TABLET 1 TABLET ORALLY EVERY 6 HOURS NEEDED, NOTES: 03-24-19799 TAKING VITAMIN C 500 MG CAPSULE 1 TABLET ORALLY ONCE A DAY, NOTES: 03-24-19899 TAKING MAGNESIUM 200 MG TABLET 2 TABLETS WITH A MEAL ORALLY ONCE A DAY, NOTES: 03-24-19799 TAKING CALTRATE 600+D 600-400 MG-UNIT TABLET 1 TABLET ORALLY TWICE A DAY, NOTES: 03-24-19899 TAKING FUROSEMIDE 40 MG TABLET 1 TABLET ORALLY TWICE A DAY, NOTES: 03-23-19799 TAKING VERAPAMIL HCL 240 MG TABLET EXTENDED RELEASE 1 TABLET EVERY MORNING WITH FOOD ORALLY ONCE A DAY, NOTES: 03-24-19799 TAKING DRISDOL 80925 UNIT CAPSULE 1 CAPSULE ORALLY ONCE A MONTH, NOTES: LAST MONTH NOT-TAKING VITAMIN D (ERGOCALCIFEROL) 47250 UNIT CAPSULE TAKE ONE CAPSULE BY MOUTH ONCE A MONTH NOT-TAKING COUMADIN 2.5 MG TABLET 1 TABLET ORALLY ONCE A DAY UNKNOWN COUMADIN 1 MG TABLET DIRECTED ORALLY ONCE A DAY MEDICATION LIST REVIEWED AND RECONCILED WITH THE PATIENT PAST MEDICAL HISTORY HYPERTENSION ATRIAL FIBRILLATION EDEMA VITAMIN D DEFICIENCY ASTHMA OSTEOARTHRITIS PSORIASIS LUMBAR FACET ARTHROPATHY PROTRUDED LUMBAR DISC ALLERGIES ASPIRIN: SNEEZING AND COUGHING - SIDE EFFECTS KEFLEX: THRUSH AND SWOLLEN TONGUE - SIDE EFFECTS NAPROXEN: WHEEZING, SHORTNESS OF BREATH - SIDE EFFECTS SURGICAL HISTORY SURGERY ON LEFT GREAT TOE 1976 1981 FAMILY HISTORY FATHER: MOTHER: 58 YRS, DIAGNOSED WITH DIABETES SOCIAL HISTORY GENERAL: TOBACCO USE ARE YOU A:NONSMOKER , NEVER SMOKER HIV / HEP-C SCREENING HIV TEST OFFERED TO PATIENT:YES DATE OFFERED:01/08/2017 TEST ACCEPTED:NO HEP-C TEST OFFERED TO PATIENT:YES DATE OFFERED:01/08/2017 REASON:PATIENT DECLINED TEST ACCEPTED:NO REASON:PATIENT DECLINED OTHERS AT HOME: SPOUSE. 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 LANGUAGE GE[place]GIAN. BMI CARE GOAL FOLLOW-UP ABOVE NORMAL BMI FOLLOW-UPDIETARY MANAGEMENT EDUCATION, GUIDANCE, AND COUNSELING RECREATIONAL DRUG USE DENIES. EXERCISE: WALKS. LEARNING BARRIERS / SPECIAL NEEDS CHANGE FROM LAST VISIT?NO BARRIERS TO LEARNING?NO HEARING IMPAIRED?NO VISION IMPAIRED?YES COGNITIVELY IMPAIRED?NO :CORRECTIVE LENSES READINESS TO LEARN?YES LEARNING PREFERENCES?NO LEARNING CAPABILITIES PRESENT?YES EMOTIONAL BARRIERS?NO SPECIAL DEVICES?NO SENIOR DESIGN ENGINEERING SPECIALIST NEEDED?NO LUNG CANCER SCREENING SMOKING STATUS:NON SMOKER PAIN CLINIC PFS, CLERGY, PUBLIC HEALTH REFERRALS WAS THE PROVIDER NOTIFIED OF ANY PERTINENT INFO?YES HAS THE PATIENT BEEN EDUCATED REGARDING HIS/HER PLAN OF CARE?YES HAS THE PATIENT BEEN EDUCATED REGARDING PAIN, THE RISK FOR PAIN, THE IMPORTANCE OF EFFECTIVE PAIN MANAGEMENT, AND THE PAIN ASSESSMENT PROCESS?YES PROCEDURE APPT, IV, PO SEDATION LATEX QUESTIONNAIRE LATEX ALLERGY : HAVE YOU EVER DEVELOPED ANY TYPE OF REACTION AFTER HANDLING LATEX PRODUCTS SUCH RUBBER GLOVES, CONDOMS, DIAPHRAGMS, BALLOONS, SOCKS, OR UNDERWEAR?NO LATEX ALLERGY : HAVE YOU EVER DEVELOPED ANY TYPE OF REACTION DURING OR AFTER DENTAL APPOINTMENT, VAGINAL/RECTAL EXAMINATION, SURGICAL PROCEDURE, OR ANY OTHER EXPOSURE?NO DATE ASKED : 02/03/2019 LATEX RISK : HAVE YOU EVER HAD ANY DIFFICULTY BREATHING OR HIVES AFTER EATING OR HANDLING ANY FRUITS, OR VEGETABLES; SUCH KIWI, BANANAS, STONE FRUITS, OR CHESTNUTSNO LATEX RISK : DO YOU HAVE A PREVIOUS PERSONAL HISTORY OF MORE THAN NINE SURGERIES, SPINA BIFIDA, OR REPEATED CATHERTIZATIONS? NO LATEX RISK : ARE YOU FREQUENTLY EXPOSED TO LATEX PRODUCTS IN YOUR OCCUPATION?NO CAFFEINE CAFFEINE USE?YES HOW OFTEN AND HOW MUCH? ONE CUP OF COFFEE A DAY ADVANCE DIRECTIVE ADVANCE DIRECTIVE DISCUSSED WITH PATIENT:YES DECLINED, INFORMATION OFFERED AND DECLINED 02/03/19 [facility] [id number] NONE MARITAL STATUS: . ALCOHOL SCREENING DID YOU HAVE A DRINK CONTAINING ALCOHOL IN THE PAST YEAR?NO POINTS0 INTERPRETATIONNEGATIVE OCCUPATION: [employer]. SEXUAL HX HAD SEX IN THE LAST 12 MONTHS (VAGINAL, ORAL, OR ANAL)?YES HAVE YOU EVER HAD AN STD?NO REVEIWED WITH PT 06/10/18 1408 BVREVIEWED WITH PT 02/03/19 1301 BV. HOSPITALIZATION/MAJOR DIAGNOSTIC PROCEDURE SURGERIES ABOVE REVIEW OF SYSTEMS REVIEWED BY: PROVIDER: . CONSTITUTIONAL: ANY CHANGE IN YOUR MEDICAL CONDITION? NO . CHILLS NO . FEVER NO . INFECTION: DO YOU HAVE NEW INFECTIONS? NO . DO YOU HAVE HISTORY OF MRSA? NO . MUSCULOSKELETAL: ANY NEW PATTERNS OF PAIN OR NUMBNESS? NO . GASTROENTEROLOGY: ANY NEW CHANGE IN BOWEL CONTROL? NO . GENITOURINARY: ANY NEW CHANGE IN BLADDER CONTROL? NO . IS THERE A CHANCE YOU COULD BE ? NO . HEMATOLOGY/LYMPH: DO YOU TAKE ANY BLOOD THINNERS? (FOR EXAMPLE- COUMADIN, PLAVIX, AGGRENOX, PLATEL, PRADAXA, OR XARELTO) YES COMADIN . WHEN WAS YOUR LAST DOSE? DATE: TIME: . NEUROLOGY: HAVE YOU FALLEN IN THE PAST 12 MONTHS? NO . ANY NEW EXTREMITY NUMBNESS OR WEAKNESS? NO . CARDIOLOGY: DO YOU HAVE A PACEMAKER OR DEFIBRILLATOR? NO . RESPIRATORY: HAVE YOU BEEN SICK IN THE PAST WEEK? NO . FEVER NO . FLU LIKE SYMPTOMS? NO . COUGH NO . INTEGUMENTARY: DO YOU HAVE ANY RASHES OR OPEN SORES? PSORIASIS . ALLERGIC/IMMUNO: ARE YOU ALLERGIC TO IV DYE? NO . ANY NEW ALLERGIES? NO . PSYCHIATRIC: DO YOU HAVE THOUGHTS OF HURTING YOURSELF OR SOMEONE ELSE? NO . ARE YOU ABUSED, NEGLECTED, OR IN AN UNSAFE ENVIRONMENT? NO . ENDOCRINOLOGY: ARE YOU DIABETIC? NO . OTHER: DO YOU NEED ANY PRESCRIPTIONS? NO . IF YES, PLEASE LIST: ____ . ANY NEW PROBLEMS WITH YOUR MEDICATIONS? NO . WHEN DID YOU LAST EAT? ____03-23-19 1045 PM . WHEN DID YOU LAST DRINK? ____03-24-19 0815 . WHAT DID YOU LAST DRINK? ____WATER . NAME OF PERSON DRIVING YOU HOME? ____GEORGE . DO YOU HAVE ANY OTHER QUESTIONS OR CONCERNS NO . VITAL SIGNS WT 263 LBS, HT 63.50 IN, BMI 45.85 INDEX, BP 133/62 MM HG, HR 75 /MIN, RR 16 /MIN, TEMP 96.7 F, OXYGEN SAT % 99%, NA INITIALS SC 10:35. ASSESSMENTS SPONDYLOSIS OF LUMBAR REGION WITHOUT MYELOPATHY OR RADICULOPATHY - M47.816 (PRIMARY) SPONDYLOSIS OF LUMBOSACRAL REGION WITHOUT MYELOPATHY OR RADICULOPATHY - M47.817 PROCEDURES PN LUMBAR FACET BLOCK THERAPEUTIC PRE PROCEDURE DIAGNOSIS LUMBAR SPONDYLOSIS, LUMBOSACRAL SPONDYLOSIS POST PROCEDURE DIAGNOSIS LUMBAR SPONDYLOSIS, LUMBOSACRAL SPONDYLOSIS PROCEDURE BILATERAL L4-L5 AND BILATERAL L5-S1 LUMBAR FACET THERAPEUTIC BLOCK SURGEON DR. HORACIO SMITH TINNER [employer] NONE ANESTHESIA LOCAL PRE PROCEDURE NOTE THE PATIENT HAS A HISTORY OF CHRONIC LOW BACK PAIN. I EVALUATE THE PATIENT AND REVIEWED THE CHART. I WENT OVER THE RISKS, ALTERNATIVES, AND BENEFITS ASSOCIATED WITH THIS PROCEDURE. THE PATIENT WOULD LIKE TO PROCEED AND GIVE CONSENT TO PERFORMED THE PROCEDURE. THE PATIENT DENIES UNEXPLAINABLE WEIGHT LOSS, FEVER, CHILLS, OR NEW CHANGES IN URINARY OR BOWEL CONTROL DESCRIPTION OF PROCEDURE THE PATIENT WAS BROUGHT TO THE PROCEDURE ROOM AND PLACED IN THE PRONE POSITION. THE LUMBOSACRAL AREA WAS CLEANED WITH CHLORAPREP SOLUTION AND DRAPED ASEPTICALLY. THE PROCEDURE WAS DONE UNDER STERILE CONDITIONS. I CHECKED LATERALITY AND THE LEVEL WHERE THE PROCEDURE WAS GOING TO BE PERFORMED WITH THE PATIENT AND THE SUPPORTING STAFF AT THE MOMENT OF THE TIME OUT IN THE PROCEDURE ROOM. UNDER FLUOROSCOPIC GUIDANCE, THE TARGET POINT WAS SELECTED AT THE RIGHT AND LEFT L4-L5 AND RIGHT AND LEFT L5-S1 FACET JOINT. TARGET POINT WAS SELECTED AFTER LATERAL ROTATION AND TILT OF THE MAGNIFIER OF THE C-ARM. LIDOCAINE 0.5% WAS USED TO NUMB THE SKIN AND THE SUBCUTANEOUS TISSUE BELOW IT. SPINAL NEEDLES, 22-GAUGE, WERE ADVANCED UNDER FLUOROSCOPIC GUIDANCE AND FOLLOWING PATIENT FEEDBACK UNTIL THE TARGETS WERE TOUCHED. THE POSITION OF THE NEEDLES WAS VERIFIED WITH AP AND LATERAL VIEWS. AFTER PROPER POSITION OF THE NEEDLES WAS ACHIEVED, ISOVUE-M DYE 30% 0.1 ML WAS INJECTED SHOWING ADEQUATE SPREAD OF THE DYE. THEN A SOLUTION OF 1.9 ML OF BUPIVACAINE 0.125% OF KENALOG 10 MG WAS INJECTED AT EACH SITE. THERE WAS NO EVIDENCE OF BLOOD, PARESTHESIA OR CEREBROSPINAL FLUID DURING THE PROCEDURE. THE PATIENT WAS SENT TO THE RECOVERY ROOM. THE PATIENT WAS MOVING THE EXTREMITIES AND DOING WELL. THERE WAS NO COMPLICATION DURING THE PROCEDURE. FLUOROSCOPY TIME WAS 27 SECONDS POST PROCEDURE NOTE THE PATIENT WILL BE SEEN IN A FOLLOW UP IN THE NEXT FEW WEEKS. INSTRUCTIONS WERE GIVEN, QUESTIONS WERE ANSWERED, AND THE PATIENT EXPRESSED UNDERSTANDING AND AGREES WITH THE PLAN. I, GOLDIE GUZMAN, DOCUMENTED THE ABOVE INFORMATION ACTING A SCRIBE FOR DR. SMITH. I HAVE REVIEWED THE ABOVE DOCUMENT, WRITTEN BY GOLDIE INGRAM AND I VERIFY THAT IT IS ACCURATE. DIAGNOSTIC IMAGING [facility] FACET BLOCK (PAIN)[id number] PROCEDURE CODES 6045F RADXPS IN END [id number] PXD 87291 INJ PARAVERT F JNT L/S 1 LEV, MODIFIERS: 50 [id number] INJ PARAVERT F JNT L/S 2 LEV, MODIFIERS: 50 DISPOSITION & COMMUNICATION FOLLOW UP 3 WEEKS ELECTRONICALLY SIGNED BY HORACIO SMITH MD, MD ON 04/01/2019 AT 12:50 PM EDT DISCLAIMER : THIS IS A VISIT SUMMARY EXTRACTED FROM THE [employer] CHART. IT IS NOT A COPY OF THE [employer] PROGRESS NOTE. MTDD
== END ==
LOC: M PAIN 10:45
PROVIDERS: ATTEND Anesthesiology
DX: M47.816 Spondylosis without myelopathy or radiculopathy, lumbar region (principal); M47.817 Spondylosis without myelopathy or radiculopathy, lumbosacral region; I10 Essential (primary) hypertension; I48.91 Unspecified atrial fibrillation; R60.0 Localized edema; E55.9 Vitamin D deficiency, unspecified; J45.909 Unspecified asthma, uncomplicated; M19.90 Unspecified osteoarthritis, unspecified site; L40.9 Psoriasis, unspecified; M51.26 Other intervertebral disc displacement, lumbar region; Z79.01 Long term (current) use of anticoagulants; Z79.899 Other long term (current) drug therapy; Z88.6 Allergy status to analgesic agent; Z88.1 Allergy status to other antibiotic agents
CPT/HCPCS: 64493; 64494; J3301; Q9967

== ENCOUNTER → 2019-03-24 | Outpatient (CLI) | payer BC ==
[~2019-03-24] MED LIST changes: -BUPIVACAINE HCL 0.25% 30 ML VIAL As Ordered ONE; -ISOVUE-M 300 61% 15ML VIAL (Q9967) As Ordered ONE; -LIDOCAINE 1% SDV INJ 30 ML VIAL As Ordered ONE; -TRIAMCINOLONE ACETONIDE SUSP 40 MG/ML VIAL (J3301) As Ordered ONE; -diazePAM 5 MG TAB As Ordered ONE; -oxyCODONE 5MG TAB As Ordered ONE
[2019-03-24 09:41] LABS: INR 1.33; PROTHROMBIN TIME 16.2 SECONDS (11.8-14.0)
== END ==
LOC: M LAB 09:02
PROVIDERS: ATTEND Nurse Practitioner Family
DX: M46.96 Unspecified inflammatory spondylopathy, lumbar region (principal)

== ENCOUNTER → 2019-04-07 | Outpatient (REF) | payer BC, MEDICARE ==
[2019-04-07 12:51] LABS: INR 1.7; PROTHROMBIN TIME 19.7 SECONDS (11.8-14.0)
== END ==
LOC: M LABDRWAD 12:25
PROVIDERS: ATTEND Nurse Practitioner Family
DX: Z79.01 Long term (current) use of anticoagulants (principal)

== ENCOUNTER → 2019-04-07 | Outpatient (REF) | payer BC, MEDICARE ==
[2019-04-07 13:12] LABS: HEMOGLOBIN A1c 6.4 %
[2019-04-07 13:36] LABS: ALBUMIN 3.5 GM/DL (3.2-5.2); BILIRUBIN,TOTAL 0.5 MG/DL (0.2-1.0); CALCIUM LEVEL 8.3 MG/DL (8.8-10.2); CHOLESTEROL RISK RATIO 2.315 (<5); CREATININE FOR GFR 1.06 MG/DL (0.55-1.30); GLOMERULAR FILTRATION RATE 54.7 (>45); POTASSIUM SERUM 5.5 MEQ/L (3.5-5.1); TOTAL 25(OH) VITAMIN D 44.9 NG/ML (30.0-100.0); TOTAL PROTEIN 6.7 GM/DL (6.4-8.2)
== END ==
LOC: M SFHCADAM 09:45
PROVIDERS: ATTEND Physician Assistant
DX: I10 Essential (primary) hypertension (principal); E11.9 Type 2 diabetes mellitus without complications; E55.9 Vitamin D deficiency, unspecified

== ENCOUNTER → 2019-04-14 | Outpatient (REF) | payer BC, MEDICARE ==
[2019-04-14 13:53] LABS: INR 1.9; PROTHROMBIN TIME 21.6 SECONDS (11.8-14.0)
== END ==
LOC: M SFHCADAM 11:25
PROVIDERS: ATTEND Physician Assistant
DX: Z79.01 Long term (current) use of anticoagulants (principal)

== ENCOUNTER → 2019-04-28 | Outpatient (REF) | payer BC, MEDICARE ==
[2019-04-28 13:07] LABS: INR 2.09; PROTHROMBIN TIME 23.3 SECONDS (11.8-14.0)
== END ==
LOC: M SFHCADAM 09:48
PROVIDERS: ATTEND Physician Assistant
DX: Z79.01 Long term (current) use of anticoagulants (principal)

== ENCOUNTER → 2019-05-12 | Outpatient (CLI) | payer BC, MEDICARE ==
--- NOTE | 2019-05-28 00:24 | ECWPNPC ---
PATIENT NAME: ROBIN NGUYỄN : 1950 GENDER: FEMALE VISIT DATE: 05/12/2019 DISCHARGE DATE: 05/12/19 1056 VISIT LOCKED DATE TIME: PHYSICIAN: BUDDY BILLINGSLEY RESOURCE: BUDDY BILLINGSLEY REASON FOR APPOINTMENT 1. POST BILAT. L4/5-L5/S1 LFBT. HISTORY OF PRESENT ILLNESS HISTORY OF PRESENT ILLNESS: HERE FOR POST PROCEDURE F/U.HAD BILAT. L4/5-L5/S1 LFBT ON 03/24/19.REPORTING >80% REDUCTION IN PAIN THAT CONTINUES TODAY.RATING PAIN VAS 3/10. PAIN THE PATIENT DESCRIBES THE PAIN... FALL RISK SCREENING: SCREENING :NO FALLS REPORTED IN THE LAST YEAR CURRENT MEDICATIONS TAKING LISINOPRIL 40 MG TABLET 1 TABLET ORALLY ONCE A DAY TAKING VERAPAMIL HCL 240 MG TABLET EXTENDED RELEASE 1 TABLET EVERY MORNING WITH FOOD ORALLY ONCE A DAY TAKING FUROSEMIDE 40 MG TABLET 1 TABLET ORALLY TWICE A DAY TAKING COUMADIN 5 MG TABLET 1 TABLET ORALLY ONCE A DAY (TAKES 2.5MG ON SAT, , .) TAKES 5MG ALL OTHER DAYS TAKING ALBUTEROL 90 MCG/ACT AEROSOL SOLUTION 2 INHALATION NEEDED TAKING FLONASE 50 MCG/ACT SUSPENSION 2 SPRAYS IN EACH NOSTRIL NASALLY DAILY NEEDED TAKING CETIRIZINE HCL 10 MG TABLET 1 TABLET ORALLY ONCE A DAY TAKING DRISDOL 13535 UNIT CAPSULE 1 CAPSULE ORALLY ONCE A MONTH TAKING CALTRATE 600+D 600-400 MG-UNIT TABLET 1 TABLET ORALLY TWICE A DAY TAKING MAGNESIUM 200 MG TABLET 2 TABLETS WITH A MEAL ORALLY ONCE A DAY TAKING TYLENOL 325 MG TABLET 1 TABLET ORALLY EVERY 6 HOURS NEEDED TAKING VITAMIN C 500 MG CAPSULE 1 TABLET ORALLY ONCE A DAY TAKING COUMADIN 2.5 MG TABLET DIRECTED ORALLY 3 DAYS A WEEK NOT-TAKING VITAMIN D (ERGOCALCIFEROL) 56916 UNIT CAPSULE TAKE ONE CAPSULE BY MOUTH ONCE A MONTH NOT-TAKING COUMADIN 2.5 MG TABLET 1 TABLET ORALLY ONCE A DAY MEDICATION LIST REVIEWED AND RECONCILED WITH THE PATIENT PAST MEDICAL HISTORY HYPERTENSION ATRIAL FIBRILLATION EDEMA VITAMIN D DEFICIENCY ASTHMA OSTEOARTHRITIS PSORIASIS LUMBAR FACET ARTHROPATHY PROTRUDED LUMBAR DISC ALLERGIES ASPIRIN: SNEEZING AND COUGHING - SIDE EFFECTS KEFLEX: THRUSH AND SWOLLEN TONGUE - SIDE EFFECTS NAPROXEN: WHEEZING, SHORTNESS OF BREATH - SIDE EFFECTS SURGICAL HISTORY SURGERY ON LEFT GREAT TOE 1976 1981 FAMILY HISTORY FATHER: MOTHER: 58 YRS, DIAGNOSED WITH DIABETES SOCIAL HISTORY GENERAL: TOBACCO USE ARE YOU A:NONSMOKER , NEVER SMOKER HIV / HEP-C SCREENING HIV TEST OFFERED TO PATIENT:YES DATE OFFERED:01/08/2017 TEST ACCEPTED:NO HEP-C TEST OFFERED TO PATIENT:YES DATE OFFERED:01/08/2017 REASON:PATIENT DECLINED TEST ACCEPTED:NO REASON:PATIENT DECLINED OTHERS AT HOME: SPOUSE. 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 LANGUAGE SLOVENIAN. BMI CARE GOAL FOLLOW-UP ABOVE NORMAL BMI FOLLOW-UPDIETARY MANAGEMENT EDUCATION, GUIDANCE, AND COUNSELING RECREATIONAL DRUG USE DENIES. EXERCISE: WALKS. LEARNING BARRIERS / SPECIAL NEEDS CHANGE FROM LAST VISIT?NO BARRIERS TO LEARNING?NO HEARING IMPAIRED?NO VISION IMPAIRED?YES COGNITIVELY IMPAIRED?NO :CORRECTIVE LENSES READINESS TO LEARN?YES LEARNING PREFERENCES?NO LEARNING CAPABILITIES PRESENT?YES EMOTIONAL BARRIERS?NO SPECIAL DEVICES?NO JUNIOR BRAND MANAGER NEEDED?NO LUNG CANCER SCREENING SMOKING STATUS:NON SMOKER PAIN CLINIC PFS, CLERGY, PUBLIC HEALTH REFERRALS WAS THE PROVIDER NOTIFIED OF ANY PERTINENT INFO?YES HAS THE PATIENT BEEN EDUCATED REGARDING HIS/HER PLAN OF CARE?YES HAS THE PATIENT BEEN EDUCATED REGARDING PAIN, THE RISK FOR PAIN, THE IMPORTANCE OF EFFECTIVE PAIN MANAGEMENT, AND THE PAIN ASSESSMENT PROCESS?YES PROCEDURE APPT, IV, PO SEDATION LATEX QUESTIONNAIRE LATEX ALLERGY : HAVE YOU EVER DEVELOPED ANY TYPE OF REACTION AFTER HANDLING LATEX PRODUCTS SUCH RUBBER GLOVES, CONDOMS, DIAPHRAGMS, BALLOONS, SOCKS, OR UNDERWEAR?NO LATEX ALLERGY : HAVE YOU EVER DEVELOPED ANY TYPE OF REACTION DURING OR AFTER DENTAL APPOINTMENT, VAGINAL/RECTAL EXAMINATION, SURGICAL PROCEDURE, OR ANY OTHER EXPOSURE?NO DATE ASKED : 02/03/2019 LATEX RISK : HAVE YOU EVER HAD ANY DIFFICULTY BREATHING OR HIVES AFTER EATING OR HANDLING ANY FRUITS, OR VEGETABLES; SUCH KIWI, BANANAS, STONE FRUITS, OR CHESTNUTSNO LATEX RISK : DO YOU HAVE A PREVIOUS PERSONAL HISTORY OF MORE THAN NINE SURGERIES, SPINA BIFIDA, OR REPEATED CATHERIZATIONS? NO LATEX RISK : ARE YOU FREQUENTLY EXPOSED TO LATEX PRODUCTS IN YOUR OCCUPATION?NO CAFFEINE CAFFEINE USE?YES HOW OFTEN AND HOW MUCH? ONE CUP OF COFFEE A DAY ADVANCE DIRECTIVE ADVANCE DIRECTIVE DISCUSSED WITH PATIENT:YES DECLINED, INFORMATION OFFERED AND DECLINED CHEONDOISM [id number] NONE MARITAL STATUS: . ALCOHOL SCREENING DID YOU HAVE A DRINK CONTAINING ALCOHOL IN THE PAST YEAR?NO POINTS0 INTERPRETATIONNEGATIVE OCCUPATION: [employer]. SEXUAL HX HAD SEX IN THE LAST 12 MONTHS (VAGINAL, ORAL, OR ANAL)?YES HAVE YOU EVER HAD AN STD?NO REVEIWED WITH PT 06/10/18 1408 BVREVIEWED WITH PT 02/03/19 1301 BV. HOSPITALIZATION/MAJOR DIAGNOSTIC PROCEDURE SURGERIES ABOVE REVIEW OF SYSTEMS REVIEWED BY: PROVIDER: BUDDY SU . CONSTITUTIONAL: ANY CHANGE IN YOUR MEDICAL CONDITION? NO . CHILLS NO . FEVER NO . INFECTION: DO YOU HAVE NEW INFECTIONS? NO . DO YOU HAVE HISTORY OF MRSA? NO . MUSCULOSKELETAL: ANY NEW PATTERNS OF PAIN OR NUMBNESS? NO . GASTROENTEROLOGY: ANY NEW CHANGE IN BOWEL CONTROL? NO . GENITOURINARY: ANY NEW CHANGE IN BLADDER CONTROL? NO . IS THERE A CHANCE YOU COULD BE ? NO . HEMATOLOGY/LYMPH: DO YOU TAKE ANY BLOOD THINNERS? (FOR EXAMPLE- COUMADIN, PLAVIX, AGGRENOX, PLATEL, PRADAXA, OR XARELTO) YES, COUMADIN . WHEN WAS YOUR LAST DOSE? DATE: TIME: . NEUROLOGY: HAVE YOU FALLEN IN THE PAST 12 MONTHS? NO . ANY NEW EXTREMITY NUMBNESS OR WEAKNESS? NO . CARDIOLOGY: DO YOU HAVE A PACEMAKER OR DEFIBRILLATOR? NO . RESPIRATORY: HAVE YOU BEEN SICK IN THE PAST WEEK? NO . FEVER NO . FLU LIKE SYMPTOMS? NO . COUGH NO . INTEGUMENTARY: DO YOU HAVE ANY RASHES OR OPEN SORES? YES, PSORIASIS . ALLERGIC/IMMUNO: ARE YOU ALLERGIC TO IV DYE? NO . ANY NEW ALLERGIES? NO . PSYCHIATRIC: DO YOU HAVE THOUGHTS OF HURTING YOURSELF OR SOMEONE ELSE? NO . ARE YOU ABUSED, NEGLECTED, OR IN AN UNSAFE ENVIRONMENT? NO . ENDOCRINOLOGY: ARE YOU DIABETIC? NO . OTHER: DO YOU NEED ANY PRESCRIPTIONS? NO . IF YES, PLEASE LIST: ____ . ANY NEW PROBLEMS WITH YOUR MEDICATIONS? NO . WHEN DID YOU LAST EAT? ____ . WHEN DID YOU LAST DRINK? ____ . WHAT DID YOU LAST DRINK? ____ . NAME OF PERSON DRIVING YOU HOME? ____ . DO YOU HAVE ANY OTHER QUESTIONS OR CONCERNS NO . VITAL SIGNS WT 262.4 LBS, HT 63.50 IN, BMI 45.75 INDEX, BP 128/61 MM HG, HR 101 /MIN, RR 16 /MIN, TEMP 96.6 F, OXYGEN SAT % 97%, NA INITIALS SC 10:20. EXAMINATION GENERAL EXAMINATION: GENERALAWAKE,ALERT ,PLEAASANT . PSYCHAFFECT NORMAL . LUNGS:LUNG PRICE ARE CLEAR TO AUSCULTATION BILATERALLY. GOOD MOVEMENT OF AIR . HEART:S1, S2 IN A REGULAR RATE AND RHYTHM. NO SIGNIFICANT MURMURS, RUBS OR GALLOPS NOTED . ASSESSMENTS LUMBAR FACET ARTHROPATHY - M46.96 (PRIMARY) PROTRUDED LUMBAR DISC - M51.26 TREATMENT LUMBAR FACET ARTHROPATHY NOTES: CONTINUE HOME WALKING AND STRETCHING EXCERSISES. PROCEDURE CODES FA211 ESTABILISHED PATIENT [facility] CHARGE DISPOSITION & COMMUNICATION FOLLOW UP 3 MONTHS (REASON: LBP) ELECTRONICALLY SIGNED BY SHARLENE MONTERROSO ON 05/27/2019 AT 02:42 PM EDT DISCLAIMER : THIS IS A VISIT SUMMARY EXTRACTED FROM THE [employer] CHART. IT IS NOT A COPY OF THE [employer] PROGRESS NOTE. YURY
== END ==
LOC: M PAIN 10:00
PROVIDERS: ATTEND Nurse Practitioner Family
DX: M46.96 Unspecified inflammatory spondylopathy, lumbar region (principal); M51.26 Other intervertebral disc displacement, lumbar region; I10 Essential (primary) hypertension; I48.91 Unspecified atrial fibrillation; E55.9 Vitamin D deficiency, unspecified; J45.909 Unspecified asthma, uncomplicated; M19.90 Unspecified osteoarthritis, unspecified site; Z88.1 Allergy status to other antibiotic agents; Z88.5 Allergy status to narcotic agent; Z79.01 Long term (current) use of anticoagulants; E66.01 Morbid (severe) obesity due to excess calories; Z68.42 Body mass index [BMI] 45.0-49.9, adult; Z79.899 Other long term (current) drug therapy

== ENCOUNTER → 2019-06-02 | Outpatient (REF) | payer BC, MEDICARE ==
[2019-06-02 14:50] LABS: INR 2.86; PROTHROMBIN TIME 29.9 SECONDS (11.8-14.0)
== END ==
LOC: M SFHCADAM 09:29
PROVIDERS: ATTEND Physician Assistant
DX: Z79.01 Long term (current) use of anticoagulants (principal)

== ENCOUNTER → 2019-06-27 | Outpatient (REF) | payer BC ==
[2019-06-27 19:16] LABS: BASO # 0.1 10^3/uL (0.0-0.2); BASO % 0.6 % (0.0-1.0); EOS # 0.1 10^3/uL (0.0-0.5); EOS % 0.9 % (0.0-3.0); HEMATOCRIT 35.1 % (36.0-47.0); HEMOGLOBIN 11.3 g/dl (12.0-15.5); LYMPH # 1.3 10^3/uL (1.5-5.0); LYMPH % 14.6 % (24.0-44.0); MEAN CORPUSCULAR HEMOGLOBIN 33.7 pg (27.0-33.0); MEAN CORPUSCULAR HGB CONC 32.2 g/dl (32.0-36.5); MEAN CORPUSCULAR VOLUME 104.8 fl (80.0-96.0); NEUTROPHILS # 6.2 10^3/uL (1.5-8.5); NEUTROPHILS % 71.3 % (36.0-66.0); PLATELET COUNT, AUTOMATED 243 10^3/uL (150-450); RED BLOOD COUNT 3.35 10^6/uL (4.00-5.40); WHITE BLOOD COUNT 8.7 10^3/uL (4.0-10.0)
[2019-06-27 19:37] LABS: BILIRUBIN,TOTAL 0.4 MG/DL (0.2-1.0); CALCIUM LEVEL 8.8 MG/DL (8.8-10.2); CREATININE FOR GFR 1.39 MG/DL (0.55-1.30); GLOMERULAR FILTRATION RATE 39.9 (>39); POTASSIUM SERUM 4.9 MEQ/L (3.5-5.1)
== END ==
LOC: M LAB REF 12:10
PROVIDERS: ATTEND Physician Assistant
DX: R11.2 Nausea with vomiting, unspecified (principal)

== ENCOUNTER → 2019-06-30 | Outpatient (REF) | payer BC, MEDICARE ==
[~2019-06-30] MED LIST changes: +ACET1TAB55 PO; +ACET500T15 PO; +CALTTAB6 PO; -CETI10TA; +CETI10TA PO; +DOXY100T27 PO; +DRIS50003 PO; +FLON1SPR NARES; -FURO40TA2; +FURO40TA2 PO; -LISI40TA; +LISI40TA PO; +MAGN200T10 PO; +MAGN400C2 PO; +PROAAER10 INH; -VERA24TASA; +VERA24TASA PO; -VITA50005; +VITA50005 PO; +VITA500C24 PO; +WARF-18 PO; +WARF-23 PO
[2019-06-30 13:28] LABS: INR 3.23
== END ==
LOC: M SFHCADAM 09:30
PROVIDERS: ATTEND Physician Assistant
DX: Z79.01 Long term (current) use of anticoagulants (principal)

== ENCOUNTER → 2019-07-17 | Outpatient (REF) | payer BC, MEDICARE ==
[2019-07-17 16:13] LABS: INR 3.47; PROTHROMBIN TIME 34.9 SECONDS (11.8-14.0)
== END ==
LOC: M SFHCADAM 14:57
PROVIDERS: ATTEND Physician Assistant
DX: Z79.01 Long term (current) use of anticoagulants (principal)

== ENCOUNTER 2019-07-23 13:44 | Observation (INO) | payer BC, MEDICARE ==
[~2019-07-23] VITALS: Ht 162.6 cm; Wt 120.4 kg
[~2019-07-23 13:44] MED LIST changes: -ACET1TAB55 PO; -ACET500T15 PO; -CALTTAB6 PO; -DOXY100T27 PO; -DRIS50003 PO; -FLON1SPR NARES; -MAGN200T10 PO; -MAGN400C2 PO; -PROAAER10 INH; -VITA500C24 PO; -WARF-18 PO; -WARF-23 PO
[2019-07-23] MEDS ORDERED: WARF-23 PO (14:11)
[2019-07-23] MEDS ORDERED: WARF-18 PO (14:11)
[2019-07-23] MEDS ORDERED: PROAAER10 INH (14:18)
[2019-07-23] MEDS ORDERED: MAGN400C2 PO (14:18)
[2019-07-23] MEDS ORDERED: DRIS50003 PO (14:18)
[2019-07-23] MEDS ORDERED: VITA500C24 PO (14:18)
[2019-07-23] MEDS ORDERED: CALTTAB6 PO (14:18)
[2019-07-23] MEDS ORDERED: FLON1SPR NARES (14:18)
[2019-07-23] MEDS ORDERED: ACET1TAB55 PO (14:18)
[2019-07-23] MEDS ORDERED: DOXY100T27 PO (14:18)
--- NOTE | 2019-07-23 15:55 | REP ---
HISTORY: Pain and swelling. TECHNIQUE: Multiple ultrasonographic images of the deep venous structures of the left thigh were obtained from the common femoral vein to the popliteal vein along with Doppler interrogation and color flow Doppler images. FINDINGS: There is no abnormal echogenic material seen within any of the visualized deep venous structures that would suggest acute thrombosis. Coaptation is unremarkable throughout. Doppler interrogation shows an expected response to respiratory variability and augmentation. The color flow images show what appears to be a normal vascular pattern throughout. IMPRESSION: There is no ultrasonographic evidence of deep venous thrombosis involving any of the visualized deep venous structures of the left thigh, as described above. Electronically Signed by Marty Gonzales DO 07/23/2019 04:58 P
[2019-07-23] MEDS ORDERED: VANCOMYCIN HCL 1,000 MG, VIAL MATE ADAPTER 1 EACH in D5W 250 ML IV ONE (16:30)
[2019-07-23] MEDS ORDERED: WARFARIN SOD 2.5 MG TAB PO SCH (17:00)
[2019-07-23] MEDS ORDERED: FUROSEMIDE 40 MG TAB PO SCH (17:00)
[2019-07-23 17:24] LABS: BASO % 0.2 % (0.0-1.0); EOS # 0.1 10^3/uL (0.0-0.5); EOS % 0.9 % (0.0-3.0); HEMATOCRIT 33.4 % (36.0-47.0); LYMPH # 1.4 10^3/uL (1.5-5.0); LYMPH % 16.2 % (24.0-44.0); MEAN CORPUSCULAR HEMOGLOBIN 34.3 pg (27.0-33.0); MEAN CORPUSCULAR HGB CONC 32.9 g/dl (32.0-36.5); MONO # 1.1 10^3/uL (0.0-0.8); MONO % 13.3 % (0.0-5.0); NEUTROPHILS # 5.8 10^3/uL (1.5-8.5); NEUTROPHILS % 68.9 % (36.0-66.0); PLATELET COUNT, AUTOMATED 179 10^3/uL (150-450); RED BLOOD COUNT 3.21 10^6/uL (4.00-5.40); WHITE BLOOD COUNT 8.5 10^3/uL (4.0-10.0)
[2019-07-23 17:47] LABS: BLOOD UREA NITROGEN 14 MG/DL (7-18); CALCIUM LEVEL 8.8 MG/DL (8.8-10.2); CARBON DIOXIDE LEVEL 25 MEQ/L (21-32); CHLORIDE LEVEL 106 MEQ/L (98-107); CREATININE FOR GFR 0.96 MG/DL (0.55-1.30); GLOMERULAR FILTRATION RATE > 60.0 (>39); GLUCOSE, FASTING 95 MG/DL (70-100); POTASSIUM SERUM 4.2 MEQ/L (3.5-5.1); SODIUM LEVEL 140 MEQ/L (136-145)
[2019-07-23 18:20] LABS: ERYTHROCYTE SEDIMENTATION RATE 89 mm/hr (0-30)
--- NOTE | 2019-07-23 19:16 | HPEPDOC ---
[facility] Medical History & Physical Date of Admission Jul 23, 2019 Date of Service: Jul 23, 2019 Primary Care Physician: Raeann Mejia PA-C, LAC Attending Physician: DESTINEE RANDLE MD History and Physical TIME OF SERVICE: 8:45 PM CHIEF COMPLAINT: Difficulty walking HISTORY OF PRESENT ILLNESS: This is a 69-year-old female who presents with complaints of difficulties walking because of left lower extremity pain and swelling. She hit her leg on a car door a few days ago. 2-3 days ago she developed left lower leg pain that is made worse by walking and improved and not putting pressure on her leg. Associated symptoms include subjective fevers and chills. Yesterday she went to an urgent care clinic and was started on doxycycline. She took 3 doses of antibiotics, but the redness, pain and swelling did not improve. Per discussion with the ED provider the ultrasound was negative for DVT. Her CRP was 12.8. She received vancomycin. REVIEW OF SYSTEMS: 12 point review of systems negative except as listed in HPI PAST MEDICAL/ SURGICAL HISTORY: Atrial fibrillation on Coumadin Prediabetes. Chronic hypertension Chronic Asthma Status post D&C. Status post . Status post right knee surgery SOCIAL HISTORY: She has never smoked. She is ALLERGIES: Please see below. HOME MEDICATIONS: Please see below. PHYSICAL EXAMINATION: VITAL SIGNS: Please see below. GENERAL APPEARANCE: Well-nourished, well-developed, not in apparent distress HEENT: Normocephalic, atraumatic. CARDIOVASCULAR: Regular rate and rhythm. No murmurs, rubs or gallops LUNGS: Clear to auscultation bilaterally on room air MUSCULOSKELETAL: The left lower extremity has redness that extends from just below the knee to just above the ankle. There is thickening of the subcutaneous tissue and in the leg is tender on palpation. NEUROLOGICAL: Cranial nerves II-12 are grossly intact PSYCHIATRIC: Alert and oriented, able to understand and follow commands LABORATORY DATA: See below. IMAGING: Left lower extremity ultrasound " IMPRESSION:There is no ultrasonographic evidence of deep venous thrombosis involving any of the visualized deep venous structures of the left thigh, as described above." ASSESSMENT: Ms. Stovall is 69-year-old female with a past medical history of atrial fibrilla tion, chronic HTN and pre-diabetes who be admitted under observation for management of left lower extremity cellulitis. PLAN: 1 . LLE Cellulitis The WBC count is within normal limits and she doesn't have a SIRS criteria Ultrasound is unremarkable The ESR and CRP are elevated Plan: Admit to general medical floor bc she has difficulties walking and is at risk of falling/ fall precautions / elevate leg /switch to PO clindamycin tomorrow/ stop doxycycline 2. Macrocytic anemia. Plan: Follow up with PCP for workup including colonoscopy 3. Chronic Atrial fibrillation Plan: Continue with Coumadin 4. Chronic HTN Plan: Continue home meds 5. Chronic Asthma Plan: Continue home meds 6. Morbid Obesity BMI 45.1 kg/m2 Since her BMI is greater than 40 she is a candidate for bariatric surgery Plan: can f/u w PCP for STOP BANG questionnaire construction technician consult & referral for Bariatric surgery / recommend cardiovascular exercise for 40 min 4-5 days a week DVT prophylaxis with warfarin. Disposition home pending PT and case management Recs Vital Signs Vital Signs Date Time Temp Pulse Resp B/P (MAP) Pulse Ox O2 Delivery O2 Flow Rate FiO2 07/23/19 15:39 Laboratory Data Labs 24H Laboratory Tests 2 07/23/19 16:55: Immature Granulocyte % (Auto) 0.5, Neutrophils (%) (Auto) 68.9H, Lymphocytes (%) (Auto) 16.2L, Monocytes (%) (Auto) 13.3H, Eosinophils (%) (Auto) 0.9, Basophils (%) (Auto) 0.2, Neutrophils # (Auto) 5.8, Lymphocytes # (Auto) 1.4L, Monocytes # (Auto) 1.1H, Eosinophils # (Auto) 0.1, Basophils # (Auto) 0.0, Nucleated Red Blood Cells % (auto) 0.0, Erythrocyte Sedimentation Rate 89H, Anion Gap 9, Glomerular Filtration Rate > 60.0, Calcium Level 8.8, C-Reactive Protein, Quantitative 12.80H CBC/BMP Laboratory Tests 07/23/19 16:55 Microbiology Microbiology 07/23/19 Blood Culture, Received Pending 07/23/19 Blood Culture, Received Pending Home Medications Scheduled Ascorbic Acid (Vitamin C) 500 Mg Capsule, 500 MG PO DAILY Cullen/D3/Mag11/Zinc/Medical Appointment Scheduler/Damon/Bor (Caltrate 600+D Plus Tablet) 1 Each Tablet, 1 TAB PO BID Cetirizine HCl (Cetirizine HCl) 10 Mg Tab, 10 MG PO DAILY Ergocalciferol (Vitamin D2) (Drisdol) 50,000 Unit Capsule, 50,000 UNIT PO QMONTH Furosemide (Furosemide) 40 Mg Tab, 40 MG PO BID Lisinopril (Lisinopril) 40 Mg Tab, 40 MG PO DAILY Magnesium Oxide (Mag-Oxide) 200 Mg Tablet, 400 MG PO DAILY Verapamil HCl (Verapamil ER) 240 Mg Tabcr, 240 MG PO QHS Warfarin Sodium (Warfarin Sodium) 5 Mg Tablet, 5 MG PO 3XW M//F EVENING Warfarin Sodium (Warfarin Sodium) 2.5 Mg Tablet, 2.5 MG PO 4XWK SUN///SAT EVENING Scheduled PRN Acetaminophen (Acetaminophen) 500 Mg Tablet, 500 MG PO Q4H PRN for PAIN Albuterol Sulfate (Proair Hfa) 8.5 Gm Hfa.aer.ad, 2 PUFF INH Q4H PRN for w heezing Fluticasone Propionate (Flonase Allergy Relief) 9.9 Ml [place].susp, 2 SPRAY NARES DAILY PRN for CONGESTION Allergies Coded Allergies: cephalexin (Verified Allergy, Intermediate, SOB, THRUSH, 07/23/19) aspirin (Verified Allergy, Mild, WHEEZING, 07/23/19) naproxen (Verified Allergy, Mild, WHEEZING, 07/23/19) A-FIB/CHADSVASC A-FIB History Current/History of A-Fib/PAF?: Yes Current PO Anticoag Therapy: Yes Age/Risk Factor Scoring CHADSVASC: CHADSVASC Response (Comments) Value Age Risk Factor Age 65-74 years old 1 Gender Risk Factor Female 1 Hx of CHF No 0 Hx of HTN Yes 1 Hx of Stroke/TIA/or VTE No 0 Hx of Diabetes No 0 Hx of Vascular Disease No 0 Total 3 Treatment Treatment ordered: Warfarin DESTINEE RANDLE MD Jul 23, 2019 19:16
[2019-07-23] MEDS ORDERED: ACET500T15 PO (20:16)
[2019-07-23] MEDS ORDERED: MAGN200T10 PO (20:16)
[2019-07-23] MEDS: ACETAMINOPHEN 500 MG TAB PO PRN (21:04)
[2019-07-23] MEDS ORDERED: FLUTICASONE PROP 0.05% NASAL SPRAY 16 GM (FLONASE) NARES PRN (21:45)
[2019-07-23] MEDS ORDERED: ALBUTEROL 90 MCG/ACT 8GM HFA INHALER INH PRN (21:45)
[2019-07-23 23:15] VITALS: BP 134/65
[2019-07-23] MEDS ORDERED: traMADol 50 MG TAB PO ONE (23:30)
[2019-07-23] MEDS: VERAPAMIL 120 MG SR TAB PO SCH (23:33)
[2019-07-24] MEDS ORDERED: CLINDAMYCIN 150 MG CAP PO SCH (06:00)
[2019-07-24 06:37] LABS: HEMATOCRIT 30.1 % (36.0-47.0); MEAN CORPUSCULAR HEMOGLOBIN 34.6 pg (27.0-33.0); MEAN CORPUSCULAR HGB CONC 33.2 g/dl (32.0-36.5); MEAN CORPUSCULAR VOLUME 104.2 fl (80.0-96.0); PLATELET COUNT, AUTOMATED 174 10^3/uL (150-450); RED BLOOD COUNT 2.89 10^6/uL (4.00-5.40); WHITE BLOOD COUNT 6.8 10^3/uL (4.0-10.0)
[2019-07-24 06:44] VITALS: BP 110/58
[2019-07-24 06:48] LABS: INR 2.29; PROTHROMBIN TIME 25.1 SECONDS (11.8-14.0)
[2019-07-24 07:11] LABS: CALCIUM LEVEL 8.6 MG/DL (8.8-10.2); CREATININE FOR GFR 1.04 MG/DL (0.55-1.30); GLOMERULAR FILTRATION RATE 55.8 (>39)
[2019-07-24] MEDS ORDERED: CEFTAROLINE FOSAMIL 600 MG in D5W MINI-BAG PLUS 50 ML IV SCH (08:00)
[2019-07-24] MEDS ORDERED: FLUBLOK(EGG FREE)(QUAD)INFLUENZA VACC 0.5ML SYRINGE (90682)18YRS&OLDER IM ONE (09:00)
[2019-07-24] MEDS ORDERED: PNEUMOCOCCAL VACCINE 0.5ML SYRINGE(90732) PNEUMOVAX 23 IM ONE (09:00)
[2019-07-24] MEDS ORDERED: FUROSEMIDE 100 MG/10 ML VIAL (J1940) IV ONE (09:00)
[2019-07-24] MEDS ORDERED: ENOXAPARIN 40 MG/0.4 ML SYRINGE (J1650) SC SCH (09:00)
[2019-07-24] MEDS: CETIRIZINE (ZyrTEC) 10 MG TAB PO SCH (09:27)
[2019-07-24] MEDS: ASCORBIC ACID 500 MG TAB PO SCH (09:27)
[2019-07-24] MEDS: ACETAMINOPHEN 500 MG TAB PO PRN ×2 (09:27→20:22)
[2019-07-24] MEDS: LISINOPRIL 40 MG TAB PO SCH (09:28)
[2019-07-24 10:19] LABS: FOLATE > 24.0 NG/ML (>5.4); VITAMIN B12 LEVEL 445 PG/ML (247-911)
[2019-07-24] MEDS ORDERED: VANCOMYCIN HCL 1,000 MG, VIAL MATE ADAPTER 1 EACH in D5W 250 ML IV SCH (10:45)
--- NOTE | 2019-07-24 11:54 | PHACANCOPD ---
PHARMACY VANCOMYCIN DOSING Pt Demographics Demographics Patient Age:69 , Weight:118.200 , Gender: female Adjusted Body Weight Events Past 24 Hours Events Past 24 Hours: YES: Other Vancomycin Vancomycin indication: CELLULITIS Vancomycin Target Ranges: 15-20 mcg/ml Vancomycin Load Y/N: Yes Load Dose Date Time Vancomycin Load Dose: PT RECEIVED 1G IN ED ON 07/23 AT 1700, TODAY I THEN GAVE ADDITIONAL 1G @1200 AND 1G AT 1400 Vancomycin Dose Date: 07/24/19. Current Vancomycin Dose: Intermittent Dosing?: No Labs Labs Vital Signs Date Time Temp Pulse Resp B/P (MAP) Pulse Ox O2 Delivery O2 Flow Rate FiO2 07/24/19 06:44 98.6 78 18 110/58 (75) 96 Room Air 07/23/19 23:33 89 134/68 07/23/19 23:32 18 07/23/19 23:15 100.1 89 18 134/65 (88) 96 Room Air 07/23/19 19:52 100.0 78 18 155/67 (96) 98 Room Air 07/23/19 15:39 Laboratory Tests 07/23/19 16:55: White Blood Count 8.5, Red Blood Count 3.21L, Hemoglobin 11.0L, Hematocrit 33.4L, Mean Corpuscular Volume 104.0H, Mean Corpuscular Hemoglobin 34.3H, Mean Corpuscular Hemoglobin Concent 32.9, Red Cell Distribution Width 12.4, Platelet Count 179, Immature Granulocyte % (Auto) 0.5, Neutrophils (%) (Auto) 68.9H, Lymphocytes (%) (Auto) 16.2L, Monocytes (%) (Auto) 13.3H, Eosinophils (%) (Auto) 0.9, Basophils (%) (Auto) 0.2, Neutrophils # (Auto) 5.8, Lymphocytes # (Auto) 1.4L, Monocytes # (Auto) 1.1H, Eosinophils # (Auto) 0.1, Basophils # (Auto) 0.0, Nucleated Red Blood Cells % (auto) 0.0, Erythrocyte Sedimentation Rate 89H, Sodium Level 140, Potassium Level 4.2, Chloride Level 106, Carbon Dioxide Level 25, Anion Gap 9, Blood Urea Nitrogen 14, Creatinine 0.96, Glomerular Filtration Rate > 60.0, Fasting Glucose 95, Calcium Level 8.8, C-Reactive Protein, Quantitative 12.80H 07/24/19 06:13: White Blood Count 6.8, Red Blood Count 2.89L, Hemoglobin 10.0L, Hematocrit 30.1L, Mean Corpuscular Volume 104.2H, Mean Corpuscular Hemoglobin 34.6H, Mean Corpuscular Hemoglobin Concent 33.2, Red Cell Distribution Width 12.5, Platelet Count 174, Nucleated Red Blood Cells % (auto) 0.0, Sodium Level 140, Potassium Level 4.0, Chloride Level 106, Carbon Dioxide Level 27, Anion Gap 7L, Blood Urea Nitrogen 13, Creatinine 1.04, Glomerular Filtration Rate 55.8, Fasting Glucose 108H, Calcium Level 8.6L, Prothrombin Time 25.1H, Prothromb Time International Ratio 2.29 07/24/19 08:08: Whole Blood Vitamin B1 Level [Pending], Vitamin B12 Level 445, Folate > 24.0 Current Medications Medications (Trade) Dose Ordered Sig/Yamil Route PRN Reason Start Time Stop Time Status Last Admin Dose Admin Acetaminophen (Tylenol Tab) 1,000 mg BIDP PRN PO PAIN 07/23/19 20:15 07/24/19 09:27 1,000 MG Ascorbic Acid (Vitamin C) 500 mg DAILY PO 07/24/19 09:00 07/24/19 09:27 500 MG Cetirizine HCl (ZyrTEC) 10 mg DAILY PO 07/24/19 09:00 07/24/19 09:27 10 MG Enoxaparin Sodium (Lovenox) 40 mg DAILY SC 07/24/19 09:00 07/24/19 09:28 40 MG Lisinopril (Prinivil) 40 mg DAILY PO 07/24/19 09:00 07/24/19 09:28 40 MG Verapamil HCl (Isoptin-Sr, Calan Sr) 240 mg QHS PO 07/23/19 21:00 07/23/19 23:33 240 MG Warfarin Sodium (Coumadin) 2.5 mg SuTuThSa@1700 PO 07/23/19 17:00 07/23/19 23:33 2.5 MG Micro Microbiology 07/23/19 Blood Culture, Received Pending 07/23/19 Blood Culture, Received Pending Creatinine Clearance Date:07/24/19. Creatinine Clearance: CALCULATED TO BE 75 BASED ON ADJUSTED BODY WEIGHT Assessment and Plan Maintaining Current Dose?: Yes Reason for dose change: No Dose Change Pharmacist Note Pharmacist Note Date: 07/24/19. Pharmacist note: PHARMACY VANCOMYCIN CONSULT RECEIVED FOR THIS PATIENT BEING ADMITTED WITH CELLULITIS. PT RECEIVED 1G IV VANCOMYCIN LAST NIGHT IN ED AT 1700. DUE TO PATIENT WEIGHT AND LAST DOSE BEING 19 HOURS AGO I AM GIVING A 2G LOAD (1G @1200 AND 1GM @1400) FOLLOWED BY 1250MG Q12H STARTING AT 2100 WITH A TROUGH SCHEDULED BEFORE THE 4TH DOSE. WILL CONTINUE TO MONITOR THIS PATIENT AND ADJUST DOSE NEEDED. SELENE DENT PHARMACY Jul 24, 2019 11:54
[2019-07-24] MEDS ORDERED: VANCOMYCIN HCL 1,000 MG, VIAL MATE ADAPTER 1 EACH in D5W 250 ML IV ONE ×2 (12:00→14:00)
--- NOTE | 2019-07-24 14:43 | IPNPDOC ---
Text Note Date of Service The patient was seen on 07/24/19. NOTE SUBJECTIVE: Says her leg feels a little better, it is not as sore as it was yesterday and she is able to bear weight. Her swelling and redness is also a little improved. PHYSICAL EXAMINATION: VITAL SIGNS: Please see below. GENERAL APPEARANCE: Well-nourished, well-developed, not in apparent distress HEENT: Normocephalic, atraumatic. CARDIOVASCULAR: Regular rate and rhythm. No murmurs, rubs or gallops LUNGS: Clear to auscultation bilaterally on room air MUSCULOSKELETAL: The left lower extremity has redness that extends from just below the knee to just above the ankle. There is thickening of the subcutaneous tissue and in the leg is tender on palpation. NEUROLOGICAL: Cranial nerves II-12 are grossly intact PSYCHIATRIC: Alert and oriented, able to understand and follow commands SKIN: Bilateral chronic venous stasis dermatitis on both the lower extremities. LABORATORY DATA: See below. ASSESSMENT AND PLAN: Ms. Stovall is 69-year-old female with a past medical history of Morbid obesity, atrial fibrillation, Hypertension, Chronic bilateral venous insufficiency, asthma and prediabetes who be admitted under observation for management of left lower extremity cellulitis. LLE Cellulitis The WBC count is within normal limits and she doesn't have a SIRS criteria Ultrasound is unremarkable The ESR and CRP are elevated will continue vancomycin. will plan for dc with Dalvance Macrocytic anemia. Vit b12 and folate levels are normal, B1 levels peding denies any chronic heavy alcohol use Follow up with PCP for workup Chronic Atrial fibrillation Continue with Coumadin Hypertension Continue home meds lisinopril, verapamil, lasix. Asthma Continue home meds Morbid Obesity BMI 44.7 Since her BMI is greater than 40 she is a candidate for bariatric surgery She falls in the high risk category for KEVIN by the STOP BANG questionnaire can f/u w PCP for social media manager consult & referral for Bariatric surgery Chronic bilateral venous stasis will continue lasix DVT prophylaxis with warfarin. VS,Fishbone, I+O VS, Fishbone, I+O Laboratory Tests 07/23/19 16:55 07/24/19 06:13 Vital Signs Date Time Temp Pulse Resp B/P (MAP) Pulse Ox O2 Delivery O2 Flow Rate FiO2 07/24/19 06:44 98.6 78 18 110/58 (75) 96 Room Air KENN YANEZ MD Jul 24, 2019 14:43
[2019-07-24 14:51] VITALS: BP 118/68
[2019-07-24] MEDS ORDERED: FUROSEMIDE 40 MG/4 ML VIAL (J1940) IV ONE (16:30)
[2019-07-24] MEDS ORDERED: WARFARIN SOD 5 MG TAB PO SCH (17:00)
[2019-07-24] MEDS: VANCOMYCIN HCL 500 MG in D5W MINI-BAG PLUS 100 ML IV SCH (20:21)
[2019-07-24 20:22] VITALS: BP 126/67
[2019-07-24] MEDS: VERAPAMIL 120 MG SR TAB PO SCH (20:22)
[2019-07-24] MEDS: VANCOMYCIN HCL 750 MG, VIAL MATE ADAPTER 1 EACH in D5W 250 ML IV SCH (21:42)
[2019-07-24 22:00] VITALS: BP 129/64
[2019-07-25 06:00] VITALS: BP 110/61
[2019-07-25] MEDS: VANCOMYCIN HCL 500 MG in D5W MINI-BAG PLUS 100 ML IV SCH (09:18)
[2019-07-25] MEDS: VANCOMYCIN HCL 750 MG, VIAL MATE ADAPTER 1 EACH in D5W 250 ML IV SCH (09:18)
[2019-07-25] MEDS: CETIRIZINE (ZyrTEC) 10 MG TAB PO SCH (09:19)
[2019-07-25] MEDS: LISINOPRIL 40 MG TAB PO SCH (09:19)
[2019-07-25] MEDS: ASCORBIC ACID 500 MG TAB PO SCH (09:19)
[2019-07-25] MEDS: ACETAMINOPHEN 500 MG TAB PO PRN (09:19)
--- NOTE | 2019-07-25 18:18 | DS.PDOC ---
Discharge Summary General Date of Admission Jul 23, 2019 at 13:45 Date of Discharge 07/25/19 Discharge Summary PROCEDURES PERFORMED DURING STAY: [None]. DISCHARGE DIAGNOSES: Left Lower extremity cellulitis Macrocytic anemia Chronic bilateral venous stasis SECONDARY DIAGNOSIS: Morbid obesity, atrial fibrillation, Hypertension, Chronic bilateral venous insufficiency, Asthma and prediabetes COMPLICATIONS/CHIEF COMPLAINT: Cellulitis Lle. HISTORY OF PRESENT ILLNESS: See history and physical HOSPITAL COURSE: Ms. Stovall is 69-year-old female with a past medical history of Morbid obesity, atrial fibrillation, Hypertension, Chronic bilateral venous insufficiency, asthma and prediabetes who be admitted under observation for management of left lower extremity cellulitis. LLE Cellulitis The WBC count is within normal limits and she didnt have a SIRS criteria Ultrasound negative for DVT. The ESR and CRP were elevated treated with vanco in hospital [place] with Dalvance Macrocytic anemia. Vit b12 and folate levels are normal, B1 levels peding denies any chronic heavy alcohol use Follow up with PCP for workup Chronic Atrial fibrillation Continue with Coumadin Hypertension Continue home meds lisinopril, verapamil, lasix. Asthma Continue home meds Morbid Obesity BMI 44.7 Since her BMI is greater than 40 she is a candidate for bariatric surgery She falls in the high risk category for KEVIN by the STOP BANG questionnaire can f/u w PCP for facility rehab director consult & referral for Bariatric surgery Chronic bilateral venous stasis will continue lasix DISCHARGE MEDICATIONS: Please see below. ALLERGIES: Please see below. PHYSICAL EXAMINATION ON DISCHARGE: VITAL SIGNS: Please see below. GENERAL APPEARANCE: Well-nourished, well-developed, not in apparent distress HEENT: Normocephalic, atraumatic. CARDIOVASCULAR: Regular rate and rhythm. No murmurs, rubs or gallops LUNGS: Clear to auscultation bilaterally on room air MUSCULOSKELETAL: The left lower extremity has redness that extends from just below the knee to just above the ankle. There is thickening of the subcutaneous tissue and in the leg is tender on palpation. NEUROLOGICAL: Cranial nerves II-12 are grossly intact PSYCHIATRIC: Alert and oriented, able to understand and follow commands SKIN: Bilateral chronic venous stasis dermatitis on both the lower extremities. LABORATORY DATA: Please see below. ACTIVITY: [As tolerated]. DIET: As tolerated DISPOSITION: 06 Home Health Service. DISCHARGE INSTRUCTIONS: Dalvance 1.5 gm on 07/26/19 Follow up PMD in 1 week Adviced rest with elevated legs for 1 week DISCHARGE CONDITION: [Stable]. TIME SPENT ON DISCHARGE: 35 minutes. Vital Signs/I&Os Vital Signs Date Time Temp Pulse Resp B/P (MAP) Pulse Ox O2 Delivery O2 Flow Rate FiO2 07/25/19 06:00 98.6 79 18 110/61 (77) 94 Room Air I&O- Last 24 Hours up to 6 AM 07/25/19 06:00 Intake Total 2715 ml Output Total 2850 ml Balance -135 ml Laboratory Data CBC/BMP Item Value Date Time White Blood Count 6.8 10^3/uL 07/24/19 0613 Red Blood Count 2.89 10^6/uL L 07/24/19 0613 Hemoglobin 10.0 g/dl L 07/24/19 0613 Hematocrit 30.1 % L 07/24/19 0613 Mean Corpuscular Volume 104.2 fl H 07/24/19 0613 Mean Corpuscular Hemoglobin 34.6 pg H 07/24/19 06 Mean Corpuscular Hemoglobin Concent 33.2 g/dl 07/24/1913 Red Cell Distribution Width 12.5 % 07/24/19 06 Platelet Count 174 10^3/uL 07/24/19 0613 Erythrocyte Sedimentation Rate 89 mm/hr H 07/23/19 1655 Neutrophils (%) (Auto) 68.9 % H 07/23/19 1655 Lymphocytes (%) (Auto) 16.2 % L 07/23/19 1655 Monocytes (%) (Auto) 13.3 % H 07/23/19 1655 Eosinophils (%) (Auto) 0.9 % 07/23/19 1655 Sodium Level 140 MEQ/L 07/24/19 0613 Potassium Level 4.0 MEQ/L 07/24/19 0613 Chloride Level 106 MEQ/L 07/24/19 0613 Carbon Dioxide Level 27 MEQ/L 07/24/19 0613 Anion Gap 7 MEQ/L L 07/24/19 0613 Blood Urea Nitrogen 13 MG/DL 07/24/19 0613 Creatinine 1.04 MG/DL 07/24/19 0613 Glomerular Filtration Rate 55.8 07/24/19 0613 Fasting Glucose 108 MG/DL H 07/24/19 0613 Calcium Level 8.6 MG/DL L 07/24/19 0613 C-Reactive Protein, Quantitative 12.80 MG/DL H 07/23/19 1655 Vitamin B12 Level 445 PG/ML 07/24/19 0808 Folate > 24.0 NG/ML 07/24/19 0808 Microbiology Microbiology 07/23/19 Blood Culture - Preliminary, Resulted No Growth after 48 hours. All Specime... 07/23/19 Blood Culture - Preliminary, Resulted No Growth after 48 hours. All Specime... Discharge Medications Scheduled Ascorbic Acid (Vitamin C) 500 Mg Capsule, 500 MG PO DAILY, (Reported) Cullen/D3/Mag11/Zinc/Polysomnograph Tech/Damon/Bor (Caltrate 600+D Plus Tablet) 1 Each Tablet, 1 TAB PO BID, (Reported) Cetirizine HCl (Cetirizine HCl) 10 Mg Tab, 10 MG PO DAILY, (Reported) Ergocalciferol (Vitamin D2) (Drisdol) 50,000 Unit Capsule, 50,000 UNIT PO QMONTH, (Reported) Furosemide (Furosemide) 40 Mg Tab, 40 MG PO BID, (Reported) Lisinopril (Lisinopril) 40 Mg Tab, 40 MG PO DAILY, (Reported) Magnesium Oxide (Mag-Oxide) 200 Mg Tablet, 400 MG PO DAILY, (Reported) Verapamil HCl (Verapamil ER) 240 Mg Tabcr, 240 MG PO QHS, (Reported) Warfarin Sodium (Warfarin Sodium) 5 Mg Tablet, 5 MG PO 3XW, (Reported) M/W/F EVENING Warfarin Sodium (Warfarin Sodium) 2.5 Mg Tablet, 2.5 MG PO 4XWK, (Reported) SUN///SAT EVENING Scheduled PRN Acetaminophen (Acetaminophen) 500 Mg Tablet, 500 MG PO Q4H PRN for PAIN, (Reported) Albuterol Sulfate (Proair Hfa) 8.5 Gm Hfa.aer.ad, 2 PUFF INH Q4H PRN for wheezing, (Reported) Fluticasone Propionate (Flonase Allergy Relief) 9.9 Ml Laurel.susp, 2 SPRAY NARES DAILY PRN for CONGESTION, (Reported) Allergies Coded Allergies: cephalexin (Verified Allergy, Intermediate, SOB, THRUSH, 07/23/19) aspirin (Verified Allergy, Mild, WHEEZING, 07/23/19) naproxen (Verified Allergy, Mild, WHEEZING, 07/23/19) KENN YANEZ MD Jul 25, 2019 18:18
== END 2019-07-25 12:25 | disposition home health service (06) ==
LOC: M ED 13:44 → INTOOBSV 13:45 → M ED INP 13:45 → OBSVTOIN 13:45 → M MS5PR 19:47
PROVIDERS: ADMIT Internal Medicine; ATTEND Internal Medicine
DX: L03.116 Cellulitis of left lower limb (principal); D64.9 Anemia, unspecified; I87.333 Chronic venous hypertension (idiopathic) with ulcer and inflammation of bilateral lower extremity; I87.2 Venous insufficiency (chronic) (peripheral); I48.91 Unspecified atrial fibrillation; I10 Essential (primary) hypertension; J45.909 Unspecified asthma, uncomplicated; R73.03 Prediabetes; E66.01 Morbid (severe) obesity due to excess calories; Z79.01 Long term (current) use of anticoagulants; Z79.899 Other long term (current) drug therapy; Z88.1 Allergy status to other antibiotic agents; Z88.8 Allergy status to other drugs, medicaments and biological substances
CPT/HCPCS: 36415; 80048; 82607; 82746; 84425; 85025; 85027; 85610; 85652; 86140; 87040; 90682; 90732; 93971; 96372; 96374; 96375; 96376; 97161; 99284; G0008; G0009; J1650; J1940; J3370

== ENCOUNTER → 2019-08-03 | Outpatient (REF) | payer BC, MEDICARE ==
[~2019-08-03] MED LIST changes: +ACET1TAB55 PO; +ACET500T15 PO; +CALTTAB6 PO; +DOXY100T27 PO; +DRIS50003 PO; +FLON1SPR NARES; +MAGN200T10 PO; +MAGN400C2 PO; +PROAAER10 INH; +VITA500C24 PO; +WARF-18 PO; +WARF-23 PO
[2019-08-03 13:55] LABS: INR 2.34; PROTHROMBIN TIME 25.5 SECONDS (11.8-14.0)
== END ==
LOC: M SFHCADAM 08:56
PROVIDERS: ATTEND Physician Assistant
DX: Z79.01 Long term (current) use of anticoagulants (principal)

== ENCOUNTER → 2019-08-21 | Outpatient (CLI) | payer BC, MEDICARE ==
--- NOTE | 2019-08-22 00:18 | ECWPNPC ---
PATIENT NAME: ROBIN NGUYỄN : 1950 GENDER: FEMALE VISIT DATE: 08/21/2019 DISCHARGE DATE: 08/21/19 1210 VISIT LOCKED DATE TIME: PHYSICIAN: BUDDY BILLINGSLEY RESOURCE: BUDDY BILLINGSLEY REASON FOR APPOINTMENT 1. BCBS-LOW BACK HISTORY OF PRESENT ILLNESS HISTORY OF PRESENT ILLNESS: HERE FOR F/U OF CHRONIC LOW BACK PAIN.WAS DOING WELL UP UNTIL ABOUT 1 MONTH AGO.HAS RESPONDED WELL TO BILAT. LUMBAR FACET BLOCKS IN PAST.RATING PAIN VAS 5/10. PAIN THE PATIENT DESCRIBES THE PAIN... THE PATIENT DESCRIBES THE PAIN... PAIN THE PATIENT DESCRIBES THE PAIN... THE PATIENT DESCRIBES THE PAIN... FALL RISK SCREENING: SCREENING :NO FALLS REPORTED IN THE LAST YEAR CURRENT MEDICATIONS TAKING LISINOPRIL 40 MG TABLET 1 TABLET ORALLY ONCE A DAY TAKING FUROSEMIDE 40 MG TABLET 1 TABLET ORALLY TWICE A DAY TAKING VERAPAMIL HCL 240 MG TABLET EXTENDED RELEASE 1 TABLET EVERY MORNING WITH FOOD ORALLY ONCE A DAY TAKING COUMADIN 5 MG TABLET 1 TAB ORALLY 3 TIMES WEEKLY ON , , TAKING COUMADIN 2.5 MG TABLET 1 TAB ORALLY 4 DAYS A WEEK (, , , ) TAKING ALBUTEROL 90 MCG/ACT AEROSOL SOLUTION 2 PUFFS INHALATION EVERY 4 HOURS NEEDED TAKING FLONASE 50 MCG/ACT SUSPENSION 2 SPRAYS IN EACH NOSTRIL NASALLY DAILY NEEDED TAKING CETIRIZINE HCL 10 MG TABLET 1 TABLET ORALLY ONCE A DAY TAKING MAGNESIUM 400 MG TABLET 1 TABLETS WITH A MEAL ORALLY ONCE A DAY TAKING CALTRATE 600+D 600-400 MG-UNIT TABLET 1 TABLET ORALLY TWICE A DAY TAKING VITAMIN C 500 MG CAPSULE 1 TABLET ORALLY ONCE A DAY TAKING ACETAMINOPHEN EXTRA STRENGTH 500 MG TABLET 1 TABLET NEEDED ORALLY EVERY 4 HOURS FOR PAIN TAKING MULTIVITAMIN ADULTS - TABLET 1 TABLET ORALLY DAILY TAKING DRISDOL 63342 UNIT CAPSULE 1 CAPSULE ORALLY ONCE A MONTH MEDICATION LIST REVIEWED AND RECONCILED WITH THE PATIENT PAST MEDICAL HISTORY HYPERTENSION ATRIAL FIBRILLATION EDEMA VITAMIN D DEFICIENCY ASTHMA OSTEOARTHRITIS PSORIASIS 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 ALLERGIES ASPIRIN: SNEEZING AND COUGHING - SIDE EFFECTS KEFLEX: THRUSH AND SWOLLEN TONGUE - SIDE EFFECTS NAPROXEN: WHEEZING, SHORTNESS OF BREATH - SIDE EFFECTS SURGICAL HISTORY SURGERY ON LEFT GREAT TOE 1977 1982 FAMILY HISTORY FATHER: MOTHER: 58 YRS, DIAGNOSED WITH DIABETES SOCIAL HISTORY GENERAL: TOBACCO USE ARE YOU A:NONSMOKER , NEVER SMOKER HIV / HEP-C SCREENING HIV TEST OFFERED TO PATIENT:YES DATE OFFERED:01/08/2017 TEST ACCEPTED:NO HEP-C TEST OFFERED TO PATIENT:YES DATE OFFERED:01/08/2017 REASON:PATIENT DECLINED TEST ACCEPTED:NO REASON:PATIENT DECLINED OTHERS AT HOME: SPOUSE. EDUCATION LEVEL OF EDUCATION:FINISHED HIGH SCHOOL DIET: NOTHING SPECIAL. LANGUAGE [place]. BMI CARE GOAL FOLLOW-UP ABOVE NORMAL BMI FOLLOW-UPDIETARY MANAGEMENT EDUCATION, GUIDANCE, AND COUNSELING RECREATIONAL DRUG USE DENIES. EXERCISE: WALKS. LEARNING BARRIERS / SPECIAL NEEDS CHANGE FROM LAST VISIT?NO BARRIERS TO LEARNING?NO HEARING IMPAIRED?NO VISION IMPAIRED?YES COGNITIVELY IMPAIRED?NO :CORRECTIVE LENSES READINESS TO LEARN?YES LEARNING PREFERENCES?NO LEARNING CAPABILITIES PRESENT?YES EMOTIONAL BARRIERS?NO SPECIAL DEVICES?NO SALES PROMOTION MANAGER NEEDED?NO LUNG CANCER SCREENING SMOKING STATUS:NON SMOKER PAIN CLINIC PFS, CLERGY, PUBLIC HEALTH REFERRALS WAS THE PROVIDER NOTIFIED OF ANY PERTINENT INFO?YES HAS THE PATIENT BEEN EDUCATED REGARDING HIS/HER PLAN OF CARE?YES HAS THE PATIENT BEEN EDUCATED REGARDING PAIN, THE RISK FOR PAIN, THE IMPORTANCE OF EFFECTIVE PAIN MANAGEMENT, AND THE PAIN ASSESSMENT PROCESS?YES PROCEDURE APPT, IV, PO SEDATION LATEX QUESTIONNAIRE LATEX ALLERGY : HAVE YOU EVER DEVELOPED ANY TYPE OF REACTION AFTER HANDLING LATEX PRODUCTS SUCH RUBBER GLOVES, CONDOMS, DIAPHRAGMS, BALLOONS, SOCKS, OR UNDERWEAR?NO LATEX ALLERGY : HAVE YOU EVER DEVELOPED ANY TYPE OF REACTION DURING OR AFTER DENTAL APPOINTMENT, VAGINAL/RECTAL EXAMINATION, SURGICAL PROCEDURE, OR ANY OTHER EXPOSURE?NO LATEX RISK : HAVE YOU EVER HAD ANY DIFFICULTY BREATHING OR HIVES AFTER EATING OR HANDLING ANY FRUITS, OR VEGETABLES; SUCH KIWI, BANANAS, STONE FRUITS, OR CHESTNUTSNO LATEX RISK : DO YOU HAVE A PREVIOUS PERSONAL HISTORY OF MORE THAN NINE SURGERIES, SPINA BIFIDA, OR REPEATED CATHERIZATIONS? NO LATEX RISK : ARE YOU FREQUENTLY EXPOSED TO LATEX PRODUCTS IN YOUR OCCUPATION?NO DATE ASKED : 02/03/2019 CAFFEINE CAFFEINE USE?YES HOW OFTEN AND HOW MUCH? ONE CUP OF COFFEE A DAY ADVANCE DIRECTIVE ADVANCE DIRECTIVE DISCUSSED WITH PATIENT:YES PATIENT HAS NO ADVANCED DIRECTIVE, INFORMATION ON HCP OFFERED AND DECLINED. TEMPLE [id number] NONE MARITAL STATUS: . 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 SEXUAL HX HAD SEX IN THE LAST 12 MONTHS (VAGINAL, ORAL, OR ANAL)?YES HAVE YOU EVER HAD AN STD?NO REVEIWED WITH PT 06/10/18 1408 BVREVIEWED WITH PT 02/03/19 1301 BVREVIEWED WITH PATIENT 08/21/19 1137 JS. HOSPITALIZATION/MAJOR DIAGNOSTIC PROCEDURE SURGERIES ABOVE CELLULITIS IN LEFT LEG 06/2019 REVIEW OF SYSTEMS REVIEWED BY: PROVIDER: BUDDY SU . CONSTITUTIONAL: ANY CHANGE IN YOUR MEDICAL CONDITION? NO . CHILLS NO . FEVER NO . INFECTION: DO YOU HAVE NEW INFECTIONS? YES, CELLULITIS IN LEFT LEG, WAS HOSPITALIZED FOR 3 DAYS AND HAS FINISHED A COURSE OF ANTIBIOTICS . DO YOU HAVE HISTORY OF MRSA? NO . MUSCULOSKELETAL: ANY NEW PATTERNS OF PAIN OR NUMBNESS? YES, SAYS PAIN HAS RETURNED IN LOW BACK AND UPPER BUTTOCKS . GASTROENTEROLOGY: ANY NEW CHANGE IN BOWEL CONTROL? NO . GENITOURINARY: ANY NEW CHANGE IN BLADDER CONTROL? NO . IS THERE A CHANCE YOU COULD BE ? NO . HEMATOLOGY/LYMPH: DO YOU TAKE ANY BLOOD THINNERS? (FOR EXAMPLE- COUMADIN, PLAVIX, AGGRENOX, PLATEL, PRADAXA, OR XARELTO) YES, COUMADIN . WHEN WAS YOUR LAST DOSE? DATE: 08/20/19TIME: 2029 . NEUROLOGY: HAVE YOU FALLEN IN THE PAST 12 MONTHS? NO . ANY NEW EXTREMITY NUMBNESS OR WEAKNESS? NO . CARDIOLOGY: DO YOU HAVE A PACEMAKER OR DEFIBRILLATOR? NO . RESPIRATORY: HAVE YOU BEEN SICK IN THE PAST WEEK? NO . FEVER NO . FLU LIKE SYMPTOMS? NO . COUGH NO . INTEGUMENTARY: DO YOU HAVE ANY RASHES OR OPEN SORES? YES, PSORIASIS SORES/RASH . ALLERGIC/IMMUNO: ARE YOU ALLERGIC TO IV DYE? NO . ANY NEW ALLERGIES? NO . PSYCHIATRIC: DO YOU HAVE THOUGHTS OF HURTING YOURSELF OR SOMEONE ELSE? NO . ARE YOU ABUSED, NEGLECTED, OR IN AN UNSAFE ENVIRONMENT? NO . ENDOCRINOLOGY: ARE YOU DIABETIC? NO . OTHER: DO YOU NEED ANY PRESCRIPTIONS? YES . IF YES, PLEASE LIST: ____LIDOCAINE PATCHES . ANY NEW PROBLEMS WITH YOUR MEDICATIONS? NO . WHEN DID YOU LAST EAT? ____ . WHEN DID YOU LAST DRINK? ____ . WHAT DID YOU LAST DRINK? ____ . NAME OF PERSON DRIVING YOU HOME? ____ . DO YOU HAVE ANY OTHER QUESTIONS OR CONCERNS FLU AND PNEUMONIA VACCINES IN JUNE . VITAL SIGNS WT 256.8 LBS, HT 63.50 IN, BMI 44.77 INDEX, BP 121/89 MM HG, HR 81 /MIN, RR 18 /MIN, TEMP 96.6 F, OXYGEN SAT % 100%, NA INITIALS SC 11:51. EXAMINATION GENERAL EXAMINATION: GENERALALERT. PSYCHAFFECT NORMAL. NECK:TRACHEA MIDLINE. NO CERVICAL OR SUPRACLAVICULAR LYMPHADENOPATHY NOTED. LUNGS:LUNG PRICE ARE CLEAR TO AUSCULTATION BILATERALLY. GOOD MOVEMENT OF AIR. HEART:S1, S2 IN A REGULAR RATE AND RHYTHM. NO SIGNIFICANT MURMURS, RUBS OR GALLOPS NOTED. MUSCULOSKELETAL:3/5 RIGHT-5/5LEFT MST. LUMBAR SACRAL SPINEINSPECTION-PSORIATIC PLAQUES LUMBAR SPINE/PARASPINAL , PALPATION: + FOR PAIN OVER L/S SPINE. + FOR PAIN OVER L/S PARSPINALS SPECIFIC POINT TENDERNESS OVER BILAT. LUMBAR FACETS. DIAGNOSTIC TESTS REVIEWEDMRI L/S [id number]-REVIEWED. 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 PREVENTIVE MEDICINE PAIN CLINIC TEACHING: PROCEDURE TEACHING REVIEWED INFORMATION ON LUMBAR FACET BLOCK PROCEDURE WITH PATIENT. ALSO REVIEWED PRE-PROCEDURE INSTRUCTIONS. PATIENT VERBALIZED AN UNDERSTANDING. DAMARI HANNA 08/21/2019 12:07:43 PM > . PROCEDURE CODES FA211 ESTABILISHED PATIENT [facility] FACILITY CHARGE DISPOSITION & COMMUNICATION FOLLOW UP POST (REASON: BILAT L4/5-L5/S1 LFBT) ELECTRONICALLY SIGNED BY SHARLENE MONTERROSO ON 08/21/2019 AT 12:34 PM EST DISCLAIMER : THIS IS A VISIT SUMMARY EXTRACTED FROM THE [employer] CHART. IT IS NOT A COPY OF THE [employer] PROGRESS NOTE. YURY
== END ==
LOC: M PAIN 11:30
PROVIDERS: ATTEND Nurse Practitioner Family
DX: M46.96 Unspecified inflammatory spondylopathy, lumbar region (principal); M51.26 Other intervertebral disc displacement, lumbar region

== ENCOUNTER → 2019-09-15 | Outpatient (REF) | payer BC, MEDICARE ==
[2019-09-15 12:48] LABS: INR 2.35; PROTHROMBIN TIME 25.6 SECONDS (11.8-14.0)
== END ==
LOC: M SFHCADAM 09:07
PROVIDERS: ATTEND Physician Assistant
DX: Z79.01 Long term (current) use of anticoagulants (principal)

== ENCOUNTER → 2019-10-05 | Outpatient (REF) | payer BC, MEDICARE ==
[2019-10-05 14:18] LABS: INR 2.66; PROTHROMBIN TIME 28.2 SECONDS (11.8-14.0)
== END ==
LOC: M SFHCADAM 09:38
PROVIDERS: ATTEND Physician Assistant
DX: Z79.01 Long term (current) use of anticoagulants (principal)

== ENCOUNTER → 2019-10-12 | Outpatient (REF) | payer BC, MEDICARE ==
[2019-10-12 13:34] LABS: HEMOGLOBIN A1c 6.1 %
[2019-10-12 13:40] LABS: ALBUMIN 3.5 GM/DL (3.2-5.2); BILIRUBIN,TOTAL 0.5 MG/DL (0.2-1.0); CALCIUM LEVEL 8.6 MG/DL (8.8-10.2); CHOLESTEROL RISK RATIO 3.285 (<5); CREATININE FOR GFR 1.07 MG/DL (0.55-1.30); POTASSIUM SERUM 5.2 MEQ/L (3.5-5.1)
== END ==
LOC: M SFHCADAM 09:16
PROVIDERS: ATTEND Physician Assistant
DX: I10 Essential (primary) hypertension (principal); E11.9 Type 2 diabetes mellitus without complications; E55.9 Vitamin D deficiency, unspecified

== ENCOUNTER → 2019-10-20 | Outpatient (CLI) | payer BC, MEDICARE ==
[~2019-10-20] MED LIST changes: +BUPIVACAINE HCL 0.25% 30 ML VIAL As Ordered ONE; +ISOVUE-M 300 61% 15ML VIAL (Q9967) As Ordered ONE; +LIDOCAINE 1% SDV INJ 30 ML VIAL As Ordered ONE; +TRIAMCINOLONE ACETONIDE SUSP 40 MG/ML VIAL (J3301) As Ordered ONE; +diazePAM 5 MG TAB As Ordered ONE; +oxyCODONE 5MG TAB As Ordered ONE
--- NOTE | 2019-10-20 11:48 | REP ---
Partial lumbar spine series: Two views . History: Injection procedure for pain. 18 seconds of fluoroscopy time is reported. Findings: A sequence of two fluoroscopically obtained last image hold procedural spot radiographs of the lumbar spine document needle position and contrast injection associated with injection procedure. Electronically Signed by Aaron Neff MD 10/20/2019 11:39 A
--- NOTE | 2019-10-31 06:36 | ECWPNPC ---
PATIENT NAME: ROBIN NGUYỄN : 1950 GENDER: FEMALE VISIT DATE: 10/20/2019 DISCHARGE DATE: 10/20/19 1131 VISIT LOCKED DATE TIME: PHYSICIAN: HORACIO SMITH MD RESOURCE: HORACIO SMITH MD REASON FOR APPOINTMENT 1. BILAT L4/5-L5/S1 LFBT HISTORY OF PRESENT ILLNESS HISTORY OF PRESENT ILLNESS: PAIN THE PATIENT DESCRIBES THE PAIN... FALL RISK SCREENING: SCREENING :NO FALLS REPORTED IN THE LAST YEAR CURRENT MEDICATIONS TAKING LISINOPRIL 40 MG TABLET 1 TABLET ORALLY ONCE A DAY, NOTES: 10/20 699 TAKING FUROSEMIDE 40 MG TABLET 1 TABLET ORALLY TWICE A DAY, NOTES: 10/19/19 TAKING VERAPAMIL HCL 240 MG TABLET EXTENDED RELEASE 1 TABLET EVERY MORNING WITH FOOD ORALLY ONCE A DAY, NOTES: 10/19 PM TAKING COUMADIN 2.5 MG TABLET 1 TAB ORALLY 4 DAYS A WEEK (, , , ), NOTES: 10/14/191999 TAKING ALBUTEROL 90 MCG/ACT AEROSOL SOLUTION 2 PUFFS INHALATION EVERY 4 HOURS NEEDED, NOTES: NONE RECENT TAKING FLONASE 50 MCG/ACT SUSPENSION 2 SPRAYS IN EACH NOSTRIL NASALLY DAILY NEEDED, NOTES: NONE RECENT TAKING CETIRIZINE HCL 10 MG TABLET 1 TABLET ORALLY ONCE A DAY, NOTES: 10/20 699 TAKING MAGNESIUM 400 MG TABLET 1 TABLETS WITH A MEAL ORALLY ONCE A DAY, NOTES: 10/19 TAKING CALTRATE 600+D 600-400 MG-UNIT TABLET 1 TABLET ORALLY TWICE A DAY, NOTES: 10/19 TAKING VITAMIN C 500 MG CAPSULE 1 TABLET ORALLY ONCE A DAY, NOTES: 10/19 TAKING ACETAMINOPHEN EXTRA STRENGTH 500 MG TABLET 1 TABLET NEEDED ORALLY EVERY 4 HOURS FOR PAIN, NOTES: 10/20 699 TAKING MULTIVITAMIN ADULTS - TABLET 1 TABLET ORALLY DAILY, NOTES: 10/19 TAKING DRISDOL 55466 UNIT CAPSULE 1 CAPSULE ORALLY ONCE A MONTH, NOTES: 2 WEEKS AGO TAKING COUMADIN 5 MG TABLET 1 TAB ORALLY ONCE A DAY DIRECTED, NOTES: LAST 10/14/191999 MEDICATION LIST REVIEWED AND RECONCILED WITH THE PATIENT PAST MEDICAL HISTORY ATRIAL FIBRILLATION HYPERTENSION EDEMA VITAMIN D DEFICIENCY ASTHMA OSTEOARTHRITIS PSORIASIS 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 ALLERGIES ASPIRIN: SNEEZING AND COUGHING - SIDE EFFECTS KEFLEX: THRUSH AND SWOLLEN TONGUE - SIDE EFFECTS NAPROXEN: WHEEZING, SHORTNESS OF BREATH - SIDE EFFECTS SURGICAL HISTORY SURGERY ON LEFT GREAT TOE 1976 1981 FAMILY HISTORY FATHER: MOTHER: 58 YRS, DIAGNOSED WITH DIABETES SOCIAL HISTORY GENERAL: TOBACCO USE ARE YOU A:NONSMOKER , NEVER SMOKER HIV / HEP-C SCREENING HIV TEST OFFERED TO PATIENT:YES DATE OFFERED:01/08/2017 TEST ACCEPTED:NO HEP-C TEST OFFERED TO PATIENT:YES DATE OFFERED:01/08/2017 REASON:PATIENT DECLINED TEST ACCEPTED:NO REASON:PATIENT DECLINED OTHERS AT HOME: SPOUSE. EDUCATION LEVEL OF EDUCATION:FINISHED HIGH SCHOOL DIET: NOTHING SPECIAL. LANGUAGE SPANISH. BMI CARE GOAL FOLLOW-UP ABOVE NORMAL BMI FOLLOW-UPDIETARY MANAGEMENT EDUCATION, GUIDANCE, AND COUNSELING RECREATIONAL DRUG USE DENIES. EXERCISE: WALKS. LEARNING BARRIERS / SPECIAL NEEDS CHANGE FROM LAST VISIT?NO BARRIERS TO LEARNING?NO HEARING IMPAIRED?NO VISION IMPAIRED?YES COGNITIVELY IMPAIRED?NO :CORRECTIVE LENSES READINESS TO LEARN?YES LEARNING PREFERENCES?NO LEARNING CAPABILITIES PRESENT?YES EMOTIONAL BARRIERS?NO SPECIAL DEVICES?NO PRACTICE MANAGEMENT CONSULTANT NEEDED?NO LUNG CANCER SCREENING SMOKING STATUS:NON SMOKER PAIN CLINIC PFS, CLERGY, PUBLIC HEALTH REFERRALS WAS THE PROVIDER NOTIFIED OF ANY PERTINENT INFO?YES HAS THE PATIENT BEEN EDUCATED REGARDING HIS/HER PLAN OF CARE?YES HAS THE PATIENT BEEN EDUCATED REGARDING PAIN, THE RISK FOR PAIN, THE IMPORTANCE OF EFFECTIVE PAIN MANAGEMENT, AND THE PAIN ASSESSMENT PROCESS?YES PROCEDURE APPT, IV, PO SEDATION LATEX QUESTIONNAIRE LATEX ALLERGY : HAVE YOU EVER DEVELOPED ANY TYPE OF REACTION AFTER HANDLING LATEX PRODUCTS SUCH RUBBER GLOVES, CONDOMS, DIAPHRAGMS, BALLOONS, SOCKS, OR UNDERWEAR?NO LATEX ALLERGY : HAVE YOU EVER DEVELOPED ANY TYPE OF REACTION DURING OR AFTER DENTAL APPOINTMENT, VAGINAL/RECTAL EXAMINATION, SURGICAL PROCEDURE, OR ANY OTHER EXPOSURE?NO DATE ASKED : 02/03/2019 LATEX RISK : HAVE YOU EVER HAD ANY DIFFICULTY BREATHING OR HIVES AFTER EATING OR HANDLING ANY FRUITS, OR VEGETABLES; SUCH KIWI, BANANAS, STONE FRUITS, OR CHESTNUTSNO LATEX RISK : DO YOU HAVE A PREVIOUS PERSONAL HISTORY OF MORE THAN NINE SURGERIES, SPINA BIFIDA, OR REPEATED CATHERIZATIONS? NO LATEX RISK : ARE YOU FREQUENTLY EXPOSED TO LATEX PRODUCTS IN YOUR OCCUPATION?NO CAFFEINE CAFFEINE USE?YES HOW OFTEN AND HOW MUCH? ONE CUP OF COFFEE A DAY ADVANCE DIRECTIVE ADVANCE DIRECTIVE DISCUSSED WITH PATIENT:YES PATIENT HAS NO ADVANCED DIRECTIVE, INFORMATION ON HCP OFFERED AND DECLINED. 1/21/20 SPIRITISM [id number] NONE MARITAL STATUS: . 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 SEXUAL HX HAD SEX IN THE LAST 12 MONTHS (VAGINAL, ORAL, OR ANAL)?YES HAVE YOU EVER HAD AN STD?NO REVEIWED WITH PT 06/10/18 1408 BVREVIEWED WITH PT 02/03/19 1301 BVREVIEWED WITH PATIENT 08/21/19 1137 JSREVIEWED WITH PATIENT 10/20/19 0951 BV. HOSPITALIZATION/MAJOR DIAGNOSTIC PROCEDURE SURGERIES ABOVE CELLULITIS IN LEFT LEG 06/2019 REVIEW OF SYSTEMS REVIEWED BY: PROVIDER: . CONSTITUTIONAL: ANY CHANGE IN YOUR MEDICAL CONDITION? NO . CHILLS NO . FEVER NO . INFECTION: DO YOU HAVE NEW INFECTIONS? NO . DO YOU HAVE HISTORY OF MRSA? NO . MUSCULOSKELETAL: ANY NEW PATTERNS OF PAIN OR NUMBNESS? YES, PT HAS HAS INCREASED INTENSITY OF PAIN OVER THE PAST MONTH . GASTROENTEROLOGY: ANY NEW CHANGE IN BOWEL CONTROL? NO . GENITOURINARY: ANY NEW CHANGE IN BLADDER CONTROL? NO . IS THERE A CHANCE YOU COULD BE ? NO . HEMATOLOGY/LYMPH: DO YOU TAKE ANY BLOOD THINNERS? (FOR EXAMPLE- COUMADIN, PLAVIX, AGGRENOX, PLATEL, PRADAXA, OR XARELTO) PT ON COUMADIN, LAST DOSE 10/14/191999 . WHEN WAS YOUR LAST DOSE? DATE: TIME: . NEUROLOGY: HAVE YOU FALLEN IN THE PAST 12 MONTHS? NO . ANY NEW EXTREMITY NUMBNESS OR WEAKNESS? NO . CARDIOLOGY: DO YOU HAVE A PACEMAKER OR DEFIBRILLATOR? NO . RESPIRATORY: HAVE YOU BEEN SICK IN THE PAST WEEK? NO . FEVER NO . FLU LIKE SYMPTOMS? NO . COUGH NO . INTEGUMENTARY: DO YOU HAVE ANY RASHES OR OPEN SORES? NO . ALLERGIC/IMMUNO: ARE YOU ALLERGIC TO IV DYE? NO . ANY NEW ALLERGIES? NO . PSYCHIATRIC: DO YOU HAVE THOUGHTS OF HURTING YOURSELF OR SOMEONE ELSE? NO . ARE YOU ABUSED, NEGLECTED, OR IN AN UNSAFE ENVIRONMENT? NO . ENDOCRINOLOGY: ARE YOU DIABETIC? NO . OTHER: DO YOU NEED ANY PRESCRIPTIONS? NO . IF YES, PLEASE LIST: ____ . ANY NEW PROBLEMS WITH YOUR MEDICATIONS? NO . WHEN DID YOU LAST EAT? 10/19/19 1800 . WHEN DID YOU LAST DRINK? 10/20/19 0700 WATER . WHAT DID YOU LAST DRINK? WATER . NAME OF PERSON DRIVING YOU HOME? ENDER,, OR NIKKY,DAUGHTER . DO YOU HAVE ANY OTHER QUESTIONS OR CONCERNS NO . VITAL SIGNS WT 256.6 LBS, HT 63.50 IN, BMI 44.74 INDEX, BP 137/65 MM HG, HR 96 /MIN, RR 18 /MIN, TEMP 97.0 F, OXYGEN SAT % 99%, NA INITIALS AW 0902, REVIEWED BY: BV. 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 HORACIO SMITH OFFICE EQUIPMENT MECHANIC NONE ANESTHESIA LOCAL PRE PROCEDURE NOTE THE PATIENT HAS A HISTORY OF CHRONIC LOW BACK PAIN. I EVALUATED THE PATIENT AND REVIEWED THE CHART. I WENT OVER THE RISKS, ALTERNATIVES, AND BENEFITS ASSOCIATED WITH THIS PROCEDURE. THE PATIENT WOULD LIKE TO PROCEED AND GIVES CONSENT TO PERFORM THE PROCEDURE. THE PATIENT DENIES UNEXPLAINABLE WEIGHT LOSS, FEVER, CHILLS, OR NEW CHANGES IN URINARY OR BOWEL CONTROL DESCRIPTION OF PROCEDURE THE PATIENT WAS BROUGHT TO THE PROCEDURE ROOM AND PLACED IN THE PRONE POSITION. THE LUMBOSACRAL AREA WAS CLEANED WITH CHLORAPREP SOLUTION AND DRAPED ASEPTICALLY. THE PROCEDURE WAS DONE UNDER STERILE CONDITIONS. I CHECKED LATERALITY AND THE LEVEL WHERE THE PROCEDURE WAS GOING TO BE PERFORMED WITH THE PATIENT AND THE SUPPORTING STAFF AT THE MOMENT OF THE TIME OUT IN THE PROCEDURE ROOM. UNDER FLUOROSCOPIC GUIDANCE, THE TARGET POINT WAS SELECTED AT THE RIGHT AND LEFT L4-L5 AND RIGHT AND LEFT L5-S1 FACET JOINTS. TARGET POINT WAS SELECTED AFTER LATERAL ROTATION AND TILT OF THE MAGNIFIER OF THE C-ARM. LIDOCAINE 0.5% WAS USED TO NUMB THE SKIN AND THE SUBCUTANEOUS TISSUE BELOW IT. SPINAL NEEDLES, 22-GAUGE, WERE ADVANCED UNDER FLUOROSCOPIC GUIDANCE AND FOLLOWING PATIENT FEEDBACK UNTIL THE TARGETS WERE TOUCHED. THE POSITION OF THE NEEDLES WAS VERIFIED WITH AP AND LATERAL VIEWS. AFTER PROPER POSITION OF THE NEEDLES WAS ACHIEVED, ISOVUE-M DYE 30% 0.1 ML WAS INJECTED SHOWING ADEQUATE SPREAD OF THE DYE. THEN A SOLUTION OF 1.9 ML OF BUPIVACAINE 0.125% OF KENALOG 10 MG WAS INJECTED AT EACH SITE. THERE WAS NO EVIDENCE OF BLOOD, PARESTHESIA OR CEREBROSPINAL FLUID DURING THE PROCEDURE. THE PATIENT WAS SENT TO THE RECOVERY ROOM. THE PATIENT WAS MOVING THE EXTREMITIES AND DOING WELL. THERE WAS NO COMPLICATION DURING THE PROCEDURE. FLUOROSCOPY TIME WAS 18 SECONDS POST PROCEDURE NOTE THE PATIENT WILL BE SEEN IN A FOLLOW UP IN THE NEXT FEW WEEKS. I AM LOOKING FOR LONG LASTING PAIN RELIEF WITH THIS PROCEDURE. INSTRUCTIONS WERE GIVEN, QUESTIONS WERE ANSWERED, AND THE PATIENT EXPRESSED UNDERSTANDING AND AGREES WITH THE PLAN. I, ILEANA LOPEZ, DOCUMENTED THE ABOVE INFORMATION ACTING A SCRIBE FOR DR. SMITH. I HAVE REVIEWED THE ABOVE DOCUMENT, WRITTEN BY ILEANA LOPEZ SCRIBE AND I VERIFY THAT IT IS ACCURATE. PROCEDURE CODES 79830 INJ PARAVERT F JNT L/S 1 LEV, MODIFIERS: 50 56939 INJ PARAVERT F JNT L/S 2 LEV, MODIFIERS: 50 [id number] RADXPS IN END [id number] PXD DISPOSITION & COMMUNICATION FOLLOW UP 3 WEEKS ELECTRONICALLY SIGNED BY HORACIO SMITH MD, MD ON 10/30/2019 AT 05:31 PM EST DISCLAIMER : THIS IS A VISIT SUMMARY EXTRACTED FROM THE [employer] CHART. IT IS NOT A COPY OF THE [employer] PROGRESS NOTE. MTDD
== END ==
LOC: M PAIN 09:15
PROVIDERS: ATTEND Anesthesiology
DX: M47.816 Spondylosis without myelopathy or radiculopathy, lumbar region (principal); M47.817 Spondylosis without myelopathy or radiculopathy, lumbosacral region; I10 Essential (primary) hypertension; E55.9 Vitamin D deficiency, unspecified; J45.909 Unspecified asthma, uncomplicated; Z88.1 Allergy status to other antibiotic agents; Z88.6 Allergy status to analgesic agent; E66.01 Morbid (severe) obesity due to excess calories; Z68.41 Body mass index [BMI] 40.0-44.9, adult; Z79.01 Long term (current) use of anticoagulants; Z79.899 Other long term (current) drug therapy
CPT/HCPCS: 64493; 64494; J3301; Q9967

== ENCOUNTER → 2019-10-20 | Outpatient (CLI) | payer BC ==
[~2019-10-20] MED LIST changes: -BUPIVACAINE HCL 0.25% 30 ML VIAL As Ordered ONE; -ISOVUE-M 300 61% 15ML VIAL (Q9967) As Ordered ONE; -LIDOCAINE 1% SDV INJ 30 ML VIAL As Ordered ONE; -TRIAMCINOLONE ACETONIDE SUSP 40 MG/ML VIAL (J3301) As Ordered ONE; -diazePAM 5 MG TAB As Ordered ONE; -oxyCODONE 5MG TAB As Ordered ONE
[2019-10-20 09:15] LABS: INR 1.52
== END ==
LOC: M LAB 08:29
PROVIDERS: ATTEND Family Medicine
DX: M51.26 Other intervertebral disc displacement, lumbar region (principal)

== ENCOUNTER → 2019-11-11 | Outpatient (REF) | payer BC, MEDICARE ==
[2019-11-11 17:45] LABS: INR 1.97; PROTHROMBIN TIME 22.2 SECONDS (11.8-14.0)
== END ==
LOC: M SFHCADAM 11:19
PROVIDERS: ATTEND Physician Assistant
DX: Z79.01 Long term (current) use of anticoagulants (principal)

== ENCOUNTER → 2019-11-19 | Outpatient (CLI) | payer BC, MEDICARE ==
--- NOTE | 2019-12-08 02:50 | ECWPNPC ---
PATIENT NAME: ROBIN NGUYỄN : 1950 GENDER: FEMALE VISIT DATE: 11/19/2019 DISCHARGE DATE: 11/19/19 1443 VISIT LOCKED DATE TIME: PHYSICIAN: BUDDY BILLINGSLEY RESOURCE: BUDDY BILLINGSLEY REASON FOR APPOINTMENT 1. POST FACET BLK HISTORY OF PRESENT ILLNESS HISTORY OF PRESENT ILLNESS: HERE FOR POST PROCEDURE FOLLOW-UP. HAD BILATERAL LUMBAR FACET THERAPEUTIC BLOCK ON 10/20/2019. CONTINUES TO BENEFIT WITH GREATER THAN 80% PAIN REDUCTION THAT CONTINUES TODAY. RATING PAIN VAS 1-2/10. BRIEFLY DISCUSSED RADIOFREQUENCY PROCEDURE. SHE MAY CONSIDER THIS. SHOULD SHE HAVE A REOCURRENCE OF HER PAIN. PAIN THE PATIENT DESCRIBES THE PAIN... FALL RISK SCREENING: SCREENING :NO FALLS REPORTED IN THE LAST YEAR CURRENT MEDICATIONS TAKING LISINOPRIL 40 MG TABLET 1 TABLET ORALLY ONCE A DAY TAKING FUROSEMIDE 40 MG TABLET 1 TABLET ORALLY TWICE A DAY TAKING VERAPAMIL HCL 240 MG TABLET EXTENDED RELEASE 1 TABLET EVERY MORNING WITH FOOD ORALLY ONCE A DAY TAKING COUMADIN 5 MG TABLET 1 TAB ORALLY DIRECTED TAKING ALBUTEROL 90 MCG/ACT AEROSOL SOLUTION 2 PUFFS INHALATION EVERY 4 HOURS NEEDED TAKING FLONASE 50 MCG/ACT SUSPENSION 2 SPRAYS IN EACH NOSTRIL NASALLY DAILY NEEDED TAKING CETIRIZINE HCL 10 MG TABLET 1 TABLET ORALLY ONCE A DAY TAKING MAGNESIUM 400 MG TABLET 1 TABLETS WITH A MEAL ORALLY ONCE A DAY TAKING CALTRATE 600+D 600-400 MG-UNIT TABLET 1 TABLET ORALLY TWICE A DAY TAKING VITAMIN C 500 MG CAPSULE 1 TABLET ORALLY ONCE A DAY TAKING ACETAMINOPHEN EXTRA STRENGTH 500 MG TABLET 1 TABLET NEEDED ORALLY EVERY 4 HOURS FOR PAIN TAKING MULTIVITAMIN ADULTS - TABLET 1 TABLET ORALLY DAILY TAKING DRISDOL 15695 UNIT CAPSULE 1 CAPSULE ORALLY ONCE A MONTH NOT-TAKING COUMADIN 3 MG TABLET 1 TABLET ORALLY ONCE A DAY NOT-TAKING COUMADIN 5 MG TABLET 1 -2 TABS DIRECTED ORALLY ONCE A DAY MEDICATION LIST REVIEWED AND RECONCILED WITH THE PATIENT PAST MEDICAL HISTORY ATRIAL FIBRILLATION HYPERTENSION EDEMA VITAMIN D DEFICIENCY ASTHMA OSTEOARTHRITIS PSORIASIS 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 ALLERGIES ASPIRIN: SNEEZING AND COUGHING - SIDE EFFECTS KEFLEX: THRUSH AND SWOLLEN TONGUE - SIDE EFFECTS NAPROXEN: WHEEZING, SHORTNESS OF BREATH - SIDE EFFECTS SURGICAL HISTORY SURGERY ON LEFT GREAT TOE 1977 1982 FAMILY HISTORY FATHER: MOTHER: 58 YRS, DIAGNOSED WITH DIABETES SOCIAL HISTORY GENERAL: TOBACCO USE ARE YOU A:NONSMOKER , NEVER SMOKER HIV / HEP-C SCREENING HIV TEST OFFERED TO PATIENT:YES DATE OFFERED:01/08/2017 TEST ACCEPTED:NO HEP-C TEST OFFERED TO PATIENT:YES DATE OFFERED:01/08/2017 REASON:PATIENT DECLINED TEST ACCEPTED:NO REASON:PATIENT DECLINED OTHERS AT HOME: SPOUSE. EDUCATION LEVEL OF EDUCATION:FINISHED HIGH SCHOOL DIET: NOTHING SPECIAL. LANGUAGE MALTESE. BMI CARE GOAL FOLLOW-UP ABOVE NORMAL BMI FOLLOW-UPDIETARY MANAGEMENT EDUCATION, GUIDANCE, AND COUNSELING RECREATIONAL DRUG USE DENIES. EXERCISE: WALKS. LEARNING BARRIERS / SPECIAL NEEDS CHANGE FROM LAST VISIT?NO BARRIERS TO LEARNING?NO HEARING IMPAIRED?NO VISION IMPAIRED?YES COGNITIVELY IMPAIRED?NO :CORRECTIVE LENSES READINESS TO LEARN?YES LEARNING PREFERENCES?NO LEARNING CAPABILITIES PRESENT?YES EMOTIONAL BARRIERS?NO SPECIAL DEVICES?NO AGRICULTURAL CONSULTANT NEEDED?NO LUNG CANCER SCREENING SMOKING STATUS:NON SMOKER PAIN CLINIC PFS, CLERGY, PUBLIC HEALTH REFERRALS WAS THE PROVIDER NOTIFIED OF ANY PERTINENT INFO?YES HAS THE PATIENT BEEN EDUCATED REGARDING HIS/HER PLAN OF CARE?YES HAS THE PATIENT BEEN EDUCATED REGARDING PAIN, THE RISK FOR PAIN, THE IMPORTANCE OF EFFECTIVE PAIN MANAGEMENT, AND THE PAIN ASSESSMENT PROCESS?YES PROCEDURE APPT, IV, PO SEDATION LATEX QUESTIONNAIRE LATEX ALLERGY : HAVE YOU EVER DEVELOPED ANY TYPE OF REACTION AFTER HANDLING LATEX PRODUCTS SUCH RUBBER GLOVES, CONDOMS, DIAPHRAGMS, BALLOONS, SOCKS, OR UNDERWEAR?NO LATEX ALLERGY : HAVE YOU EVER DEVELOPED ANY TYPE OF REACTION DURING OR AFTER DENTAL APPOINTMENT, VAGINAL/RECTAL EXAMINATION, SURGICAL PROCEDURE, OR ANY OTHER EXPOSURE?NO DATE ASKED : 02/03/2019 LATEX RISK : HAVE YOU EVER HAD ANY DIFFICULTY BREATHING OR HIVES AFTER EATING OR HANDLING ANY FRUITS, OR VEGETABLES; SUCH KIWI, BANANAS, STONE FRUITS, OR CHESTNUTSNO LATEX RISK : DO YOU HAVE A PREVIOUS PERSONAL HISTORY OF MORE THAN NINE SURGERIES, SPINA BIFIDA, OR REPEATED CATHERIZATIONS? NO LATEX RISK : ARE YOU FREQUENTLY EXPOSED TO LATEX PRODUCTS IN YOUR OCCUPATION?NO CAFFEINE CAFFEINE USE?YES HOW OFTEN AND HOW MUCH? ONE CUP OF COFFEE A DAY ADVANCE DIRECTIVE ADVANCE DIRECTIVE DISCUSSED WITH PATIENT:YES PATIENT HAS NO ADVANCED DIRECTIVE, INFORMATION ON HCP OFFERED AND DECLINED. 10/20/19 PRESYBETERIAN [id number] NONE MARITAL STATUS: . 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 SEXUAL HX HAD SEX IN THE LAST 12 MONTHS (VAGINAL, ORAL, OR ANAL)?YES HAVE YOU EVER HAD AN STD?NO REVEIWED WITH PT 06/10/18 1408 BVREVIEWED WITH PT 02/03/19 1301 BVREVIEWED WITH PATIENT 08/21/19 1137 JSREVIEWED WITH PATIENT 10/20/19 0951 BV. HOSPITALIZATION/MAJOR DIAGNOSTIC PROCEDURE SURGERIES ABOVE CELLULITIS IN LEFT LEG 06/2019 REVIEW OF SYSTEMS REVIEWED BY: PROVIDER: BUDDY SU . CONSTITUTIONAL: ANY CHANGE IN YOUR MEDICAL CONDITION? NO . CHILLS NO . FEVER NO . INFECTION: DO YOU HAVE NEW INFECTIONS? NO . DO YOU HAVE HISTORY OF MRSA? NO . MUSCULOSKELETAL: ANY NEW PATTERNS OF PAIN OR NUMBNESS? NO . GASTROENTEROLOGY: ANY NEW CHANGE IN BOWEL CONTROL? NO . GENITOURINARY: ANY NEW CHANGE IN BLADDER CONTROL? NO . IS THERE A CHANCE YOU COULD BE ? NO . HEMATOLOGY/LYMPH: DO YOU TAKE ANY BLOOD THINNERS? (FOR EXAMPLE- COUMADIN, PLAVIX, AGGRENOX, PLATEL, PRADAXA, OR XARELTO) NO . WHEN WAS YOUR LAST DOSE? DATE: TIME: . NEUROLOGY: HAVE YOU FALLEN IN THE PAST 12 MONTHS? NO . ANY NEW EXTREMITY NUMBNESS OR WEAKNESS? NO . CARDIOLOGY: DO YOU HAVE A PACEMAKER OR DEFIBRILLATOR? NO . RESPIRATORY: HAVE YOU BEEN SICK IN THE PAST WEEK? NO . FEVER NO . FLU LIKE SYMPTOMS? NO . COUGH NO . INTEGUMENTARY: DO YOU HAVE ANY RASHES OR OPEN SORES? YES - PSORIASIS . ALLERGIC/IMMUNO: ARE YOU ALLERGIC TO IV DYE? NO . ANY NEW ALLERGIES? NO . PSYCHIATRIC: DO YOU HAVE THOUGHTS OF HURTING YOURSELF OR SOMEONE ELSE? NO . ARE YOU ABUSED, NEGLECTED, OR IN AN UNSAFE ENVIRONMENT? NO . ENDOCRINOLOGY: ARE YOU DIABETIC? NO . OTHER: DO YOU NEED ANY PRESCRIPTIONS? NO . IF YES, PLEASE LIST: LIDODERM . ANY NEW PROBLEMS WITH YOUR MEDICATIONS? NO . WHEN DID YOU LAST EAT? ____ . WHEN DID YOU LAST DRINK? ____ . WHAT DID YOU LAST DRINK? ____ . NAME OF PERSON DRIVING YOU HOME? ____ . DO YOU HAVE ANY OTHER QUESTIONS OR CONCERNS NO . VITAL SIGNS WT 260 LBS, HT 63.50 IN, BMI 45.33 INDEX, BP 121/59 MM HG, HR 86 /MIN, RR 18 /MIN, TEMP 96.0 F, OXYGEN SAT % 98%, NA INITIALS AW 1323, REVIEWED BY: MAXIME. EXAMINATION GENERAL EXAMINATION: GENERALAWAKE,ALERT ,PLEASANT . PSYCHAFFECT NORMAL . LUNGS:LUNG PRICE ARE CLEAR TO AUSCULTATION BILATERALLY. GOOD MOVEMENT OF AIR . HEART:S1, S2 IN A REGULAR RATE AND RHYTHM. NO SIGNIFICANT MURMURS, RUBS OR GALLOPS NOTED . ASSESSMENTS LUMBAR FACET ARTHROPATHY - M46.96 (PRIMARY) PROTRUDED LUMBAR DISC - M51.26 PROCEDURE CODES FA211 ESTABILISHED PATIENT [facility] CHARGE DISPOSITION & COMMUNICATION FOLLOW UP 3 MONTHS (REASON: LOW BACK PAIN) ELECTRONICALLY SIGNED BY SHARLENE MONTERROSO ON 12/07/2019 AT 03:32 PM EDT DISCLAIMER : THIS IS A VISIT SUMMARY EXTRACTED FROM THE [employer] CHART. IT IS NOT A COPY OF THE [employer] PROGRESS NOTE. YURY
== END ==
LOC: M PAIN 13:30
PROVIDERS: ATTEND Nurse Practitioner Family
DX: M46.96 Unspecified inflammatory spondylopathy, lumbar region (principal); M51.26 Other intervertebral disc displacement, lumbar region; I10 Essential (primary) hypertension; E55.9 Vitamin D deficiency, unspecified; J45.909 Unspecified asthma, uncomplicated; Z88.1 Allergy status to other antibiotic agents; Z88.6 Allergy status to analgesic agent; E66.01 Morbid (severe) obesity due to excess calories; Z68.42 Body mass index [BMI] 45.0-49.9, adult; Z79.01 Long term (current) use of anticoagulants; Z79.899 Other long term (current) drug therapy

== ENCOUNTER → 2019-11-30 | Outpatient (REF) | payer BC, MEDICARE ==
[2019-11-30 19:56] LABS: PROTHROMBIN TIME 65.4 SECONDS (11.8-14.0)
[2019-11-30 20:06] LABS: INR 7.6
== END ==
LOC: M SFHCADAM 08:55
PROVIDERS: ATTEND Physician Assistant
DX: Z79.01 Long term (current) use of anticoagulants (principal)

== ENCOUNTER → 2019-12-01 | Outpatient (REF) | payer BC, MEDICARE ==
[2019-12-01 13:18] LABS: PROTHROMBIN TIME 65.3 SECONDS (11.8-14.0)
[2019-12-01 14:37] LABS: INR 7.59
== END ==
LOC: M SFHCADAM 08:19
PROVIDERS: ATTEND Physician Assistant
DX: Z79.01 Long term (current) use of anticoagulants (principal)

== ENCOUNTER → 2019-12-03 | Outpatient (REF) | payer BC, MEDICARE ==
[2019-12-03 15:54] LABS: INR 3.23; PROTHROMBIN TIME 32.9 SECONDS (11.8-14.0)
== END ==
LOC: M SFHCADAM 11:24
PROVIDERS: ATTEND Physician Assistant
DX: Z79.01 Long term (current) use of anticoagulants (principal)

== ENCOUNTER → 2019-12-14 | Outpatient (REF) | payer BC, MEDICARE ==
[2019-12-14 14:59] LABS: INR 4.22; PROTHROMBIN TIME 40.8 SECONDS (11.8-14.0)
== END ==
LOC: M SFHCADAM 09:24
PROVIDERS: ATTEND Physician Assistant
DX: Z79.01 Long term (current) use of anticoagulants (principal)

== ENCOUNTER → 2019-12-22 | Outpatient (REF) | payer BC, MEDICARE ==
[2019-12-22 13:37] LABS: INR 4.23; PROTHROMBIN TIME 10.9 SECONDS (11.8-14.0)
== END ==
LOC: M SFHCADAM 09:27
PROVIDERS: ATTEND Physician Assistant
DX: Z79.01 Long term (current) use of anticoagulants (principal)

== ENCOUNTER → 2019-12-29 | Outpatient (REF) | payer BC, MEDICARE ==
[2019-12-29 13:39] LABS: INR 4.32; PROTHROMBIN TIME 41.6 SECONDS (11.8-14.0)
== END ==
LOC: M SFHCADAM 09:10
PROVIDERS: ATTEND Physician Assistant
DX: Z51.81 Encounter for therapeutic drug level monitoring (principal); Z79.01 Long term (current) use of anticoagulants

== ENCOUNTER → 2020-01-11 | Outpatient (REF) | payer BC, MEDICARE ==
[2020-01-11 13:22] LABS: PROTHROMBIN TIME 58.7 SECONDS (11.8-14.0)
[2020-01-11 15:02] LABS: INR 6.65
== END ==
LOC: M SFHCADAM 09:04
PROVIDERS: ATTEND Physician Assistant
DX: Z79.01 Long term (current) use of anticoagulants (principal)

== ENCOUNTER → 2020-01-18 | Outpatient (REF) | payer BC, MEDICARE ==
[2020-01-18 14:32] LABS: ALBUMIN 3.5 GM/DL (3.2-5.2); BILIRUBIN,TOTAL 0.5 MG/DL (0.2-1.0); CALCIUM LEVEL 8.7 MG/DL (8.8-10.2); CHOLESTEROL RISK RATIO 3.431 (<5); CREATININE FOR GFR 1.14 MG/DL (0.55-1.30); GLOMERULAR FILTRATION RATE 50.2 (>39); POTASSIUM SERUM 5.1 MEQ/L (3.5-5.1); TOTAL PROTEIN 6.7 GM/DL (6.4-8.2)
[2020-01-18 14:46] LABS: INR 3.34; PROTHROMBIN TIME 33.8 SECONDS (11.8-14.0)
[2020-01-18 16:01] LABS: HEMOGLOBIN A1c 5.4 %
== END ==
LOC: M SFHCADAM 08:52
PROVIDERS: ATTEND Physician Assistant
DX: I10 Essential (primary) hypertension (principal); E11.9 Type 2 diabetes mellitus without complications; Z79.01 Long term (current) use of anticoagulants

== ENCOUNTER → 2020-01-25 | Outpatient (REF) | payer BC, MEDICARE ==
[2020-01-25 13:03] LABS: INR 2.62; PROTHROMBIN TIME 27.8 SECONDS (11.8-14.0)
== END ==
LOC: M SFHCADAM 08:48
PROVIDERS: ATTEND Physician Assistant
DX: Z51.81 Encounter for therapeutic drug level monitoring (principal); Z79.01 Long term (current) use of anticoagulants

== ENCOUNTER → 2020-02-08 | Outpatient (REF) | payer BC, MEDICARE ==
[2020-02-08 12:57] LABS: INR 3.3; PROTHROMBIN TIME 33.5 SECONDS (11.8-14.0)
== END ==
LOC: M SFHCADAM 09:36
PROVIDERS: ATTEND Physician Assistant
DX: Z51.81 Encounter for therapeutic drug level monitoring (principal); Z79.01 Long term (current) use of anticoagulants

== ENCOUNTER → 2020-02-16 | Outpatient (CLI) | payer BC ==
--- NOTE | 2020-02-16 14:12 | REPMRS ---
Patient History The patient states she had a clinical breast exam in December 2019.No known family history of cancer. Digital Woman Screen Mammo: February 16, 2020 - Exam #: [id number] Bilateral CC and MLO view(s) were taken. Technologist: Kristan Gallardo, Technologist Prior study comparison: February 10, 2019, bilateral digital woman screen mammo performed at [facility]. November 26, 2017, digital woman screen mammo performed at [facility]. FINDINGS: There are scattered fibroglandular densities. The Volpara volumetric breast density category is:B. There has been no change in the appearance of the mammogram from the prior studies. There is a mild amount of scattered fibroglandular density which is fairly symmetric. There is no interval development of dominant mass, architectural distortion, or grouped microcalcification suggestive of malignancy. 3-D tomosynthesis shows no additional findings. Assessment: BI-RADS/ACR category 1 mammogram. Negative Mammogram. Recommendation Routine screening mammogram of both breasts in 1 year (for women over age 40). This patient's Lifetime Breast Cancer Risk is estimated at 4.2 %. This mammogram was interpreted with the aid of an FDA-approved computer-aided dectection system. Electronically Signed By: Arslan Neff MD 02/16/20 9540
== END ==
LOC: M WHC 12:58
PROVIDERS: ATTEND Obstetrics & Gynecology
DX: Z12.31 Encounter for screening mammogram for malignant neoplasm of breast (principal)

== ENCOUNTER → 2020-02-23 | Outpatient (REF) | payer BC, MEDICARE ==
[2020-02-23 13:16] LABS: INR 3.13; PROTHROMBIN TIME 32.1 SECONDS (11.8-14.0)
== END ==
LOC: M SFHCADAM 11:30
PROVIDERS: ATTEND Physician Assistant
DX: Z51.81 Encounter for therapeutic drug level monitoring (principal)

== ENCOUNTER → 2020-03-04 | Outpatient (CLI) | payer BC ==
[~2020-03-04] MED LIST changes: +MAGN400T2 PO
== END ==
LOC: M LABSMTC 11:46
PROVIDERS: ATTEND Anesthesiology
DX: Z11.59 Encounter for screening for other viral diseases (principal)
CPT/HCPCS: C9803; U0003

== ENCOUNTER → 2020-03-07 | Outpatient (CLI) | payer BC ==
[2020-03-07 09:41] LABS: INR 1.49; PROTHROMBIN TIME 17.7 SECONDS (11.8-14.0)
== END ==
LOC: M LAB 08:48
PROVIDERS: ATTEND Nurse Practitioner Family
DX: M46.96 Unspecified inflammatory spondylopathy, lumbar region (principal)

== ENCOUNTER → 2020-03-07 | Outpatient (CLI) | payer BC, MEDICARE ==
[~2020-03-07] MED LIST changes: +BUPIVACAINE HCL 0.25% 30ML VIAL As Ordered ONE; +ISOVUE-M 300 61% 15ML VIAL As Ordered ONE; +LIDOCAINE 1% SDV 30ML VIAL As Ordered ONE; +dexameTHASONE 10MG/1ML VIAL PRES.FREE (J1100 PER 1MG) As Ordered ONE; +diazePAM 2 MG TAB As Ordered ONE; +oxyCODONE 5MG TAB As Ordered ONE
--- NOTE | 2020-03-07 16:51 | REP ---
C-ARM VIEWS LUMBAR SPINE: CLINICAL HISTORY: Pain. Two C-arm views lower lumbar spine performed during bilateral facet injection by Dr. Dai. Two needles are seen along the lower lumbar facet joints bilaterally. 12 seconds fluoroscopy time utilized. Electronically Signed by Alfie Arnold MD 03/07/2020 11:08 P
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
== END ==
LOC: M PAIN 09:45
PROVIDERS: ATTEND Anesthesiology
DX: M47.816 Spondylosis without myelopathy or radiculopathy, lumbar region (principal); M47.817 Spondylosis without myelopathy or radiculopathy, lumbosacral region
CPT/HCPCS: 64493; 64494; J1100; Q9967

== ENCOUNTER 2020-03-11 18:46 | Inpatient (IN) | payer BC ==
[~2020-03-11] VITALS: Ht 162.6 cm; Wt 118.2 kg
[~2020-03-11 18:46] MED LIST changes: -BUPIVACAINE HCL 0.25% 30ML VIAL As Ordered ONE; -ISOVUE-M 300 61% 15ML VIAL As Ordered ONE; -LIDOCAINE 1% SDV 30ML VIAL As Ordered ONE; -MAGN400T2 PO; -dexameTHASONE 10MG/1ML VIAL PRES.FREE (J1100 PER 1MG) As Ordered ONE; -diazePAM 2 MG TAB As Ordered ONE; -oxyCODONE 5MG TAB As Ordered ONE
[2020-03-11 19:48] LABS: HEMATOCRIT 34.8 % (36.0-47.0); HEMOGLOBIN 11.5 g/dl (12.0-15.5); MEAN CORPUSCULAR HEMOGLOBIN 33.4 pg (27.0-33.0); MEAN CORPUSCULAR VOLUME 101.2 fl (80.0-96.0); PLATELET COUNT, AUTOMATED 193 10^3/uL (150-450); RED BLOOD COUNT 3.44 10^6/uL (4.00-5.40); WHITE BLOOD COUNT 12.4 10^3/uL (4.0-10.0)
[2020-03-11 20:06] LABS: C REACTIVE PROTEIN QUANTITATIV 2.18 MG/DL (0.00-0.30); CALCIUM LEVEL 8.1 MG/DL (8.8-10.2); CREATININE FOR GFR 1.33 MG/DL (0.55-1.30); POTASSIUM SERUM 3.9 MEQ/L (3.5-5.1)
[2020-03-11 20:13] LABS: ERYTHROCYTE SEDIMENTATION RATE 55 mm/hr (0-30)
[2020-03-11] MEDS ORDERED: NS 1,000 ML IV ONE (21:30)
[2020-03-11] MEDS ORDERED: CLINDAMYCIN 300 MG in IV 1 EA IV ONE (21:30)
--- NOTE | 2020-03-11 22:49 | REPVR ---
PROCEDURE INFORMATION: Exam: US Duplex Left Lower Extremity Veins, Limited Exam date and time: 03/11/2020 10:40 PM Age: 69 years old Clinical indication: Pain; Leg, lower; Left; Additional info: R/O dvt, pain/swelling TECHNIQUE: Imaging protocol: Real-time Duplex ultrasound of the Left Lower Extremity with 2-D porter scale, color Doppler flow and spectral waveform analysis with image documentation. Limited exam focused on the left lower extremity veins. COMPARISON: US Duplex, Ext,LOWER veins,unilat 07/23/2019 3:28 PM FINDINGS: Left deep veins: Unremarkable. The common femoral, femoral, proximal profunda femoral and popliteal veins are patent without thrombus. Normal Doppler waveforms. Normal compressibility and/or augmentation response. Left superficial veins: Unremarkable. Saphenofemoral junction is patent without thrombus. Soft tissues: Lower leg edema. IMPRESSION: Lower leg edema. No DVT. Electronically signed by: Enrrique Cullen On 03/11/2020 22:49:26 PM
[2020-03-12] MEDS ORDERED: MAGN400T2 PO (01:32)
[2020-03-12] MEDS ORDERED: VITA50005 PO (01:32)
[2020-03-12] MEDS ORDERED: ALBUTEROL 90 MCG/ACT 8GM HFA INHALER INH PRN (03:30)
[2020-03-12] MEDS ORDERED: CLINDAMYCIN 300 MG in IV 1 EA IV SCH (03:45)
[2020-03-12 04:22] VITALS: BP 122/80
--- NOTE | 2020-03-12 04:47 | HPEPDOC ---
[facility] Medical History & Physical Date of Admission Mar 12, 2020 Date of Service: Mar 12, 2020 Attending Physician: GIA SIDDIQUI MD History and Physical CHIEF COMPLAINT: Left leg infection HISTORY OF PRESENT ILLNESS: 69-year-old female with past medical history of hypertension, atrial fibrillation on Coumadin and cellulitis presents with left leg redness/swelling. She reports being scratched by her cat a few days ago. She does report drainage from the scratch site as well. She denies any other associated symptoms, denies fever, shortness of breath, chest pain, nausea, vomiting, diarrhea or constipation. Lower extremity Doppler in the ER is negative for DVT. 10 point review of system is negative so for above PAST MEDICAL HISTORY: 1. Atrial fibrillation. 2. Hypertension. 3. Cellulitis. PAST SURGICAL HISTORY: 1. Orthopedic surgeries. SOCIAL HISTORY: Denies smoking. Denies alcohol use Denies drug use FAMILY HISTORY: Negative for heart disease ALLERGIES: Please see below. HOME MEDICATIONS: Please see below. PHYSICAL EXAMINATION: VITAL SIGNS: Please see below. GENERAL: No distress, morbidly obese HEENT: Normocephalic, atraumatic, moist mucous membranes NECK: Supple CARDIOVASCULAR EXAMINATION: S1, S2, no murmurs RESPIRATORY EXAMINATION: Poor air movement, scattered rhonchi, no wheezing ABDOMINAL EXAMINATION: Soft, nontender, nondistended, positive bowel sounds EXTREMITIES: Left lower extremity with swelling, redness and tenderness to palpation below the knee SKIN: No rash NEUROLOGICAL EXAMINATION: Alert and oriented 3, no focal deficits PSYCHIATRIC EXAMINATION: Calm and cooperative LABORATORY DATA: See below. IMAGING: Left lower extremity ultrasound negative for DVT MICROBIOLOGY: Please see below. ASSESSMENT: 69-year-old female with past medical history of hypertension and atrial fibrillation is being admitted for cellulitis. PLAN: 1. Cellulitis. Reports scratch/bite from cat, lower extremity Doppler negative for DVT, clindamycin, cultures pending. 2. Atrial fibrillation. Continue Coumadin frantic evaluation, INR in the morning, continue verapamil for rate control 3. Hypertension. Continue lisinopril and verapamil DVT prophylaxis: On Coumadin. GI prophylaxis: Not needed Vital Signs Vital Signs Date Time Temp Pulse Resp B/P (MAP) Pulse Ox O2 Delivery O2 Flow Rate FiO2 03/11/20 19:22 03/11/20 18:47 98.1 101 18 97 Room Air Laboratory Data Labs 24H Laboratory Tests 2 03/11/20 19:31: Nucleated Red Blood Cells % (auto) 0.2H, Erythrocyte Sedimentation Rate 55H, Anion Gap 5L, Glomerular Filtration Rate 42.0, Calcium Level 8.1L, C-Reactive Protein, Quantitative 2.18H 03/11/20 21:39: Lactic Acid Level 1.7 CBC/BMP Laboratory Tests 03/11/20 19:31 Microbiology Microbiology 03/11/20 Blood Culture, Received Pending 03/11/20 Blood Culture, Received Pending Home Medications Scheduled Ascorbic Acid (Vitamin C) 500 Mg Capsule, 500 MG PO DAILY Cullen/D3/Mag11/Zinc/Waste Machine Tender/Damon/Bor (Caltrate 600+D Plus Tablet) 1 Each Tablet, 1 TAB PO BID Cetirizine HCl (Cetirizine HCl) 10 Mg Tab, 10 MG PO DAILY Ergocalciferol (Vitamin D2) (Vitamin D2) 50,000 Units Cap, 50,000 UNIT PO 1XWK Furosemide (Furosemide) 40 Mg Tab, 40 MG PO DAILY Lisinopril (Lisinopril) 40 Mg Tab, 40 MG PO DAILY Magnesium Oxide (Magnesium Oxide) 400 Mg Tablet, 400 MG PO DAILY Verapamil HCl (Verapamil ER) 240 Mg Tabcr, 240 MG PO QPM WITH SUPPER Warfarin Sodium (Warfarin Sodium) 5 Mg Tablet, 5 MG PO 3XW M/W/ EVENING Warfarin Sodium (Warfarin Sodium) 2.5 Mg Tablet, 2.5 MG PO 4XWK SUN///SAT EVENING Scheduled PRN Acetaminophen (Acetaminophen) 500 Mg Tablet, 1,000 MG PO Q8H PRN for PAIN Albuterol Sulfate (Proair Hfa) 8.5 Gm Hfa.aer.ad, 2 PUFF INH Q4H PRN for wheezing Fluticasone Propionate (Flonase Allergy Relief) 9.9 Ml [place].susp, 2 SPRAY NARES DAILY PRN for CONGESTION Allergies Coded Allergies: cephalexin (Verified Allergy, Intermediate, SOB, THRUSH, 07/23/19) aspirin (Verified Allergy, Mild, WHEEZING, 07/23/19) naproxen (Verified Allergy, Mild, WHEEZING, 07/23/19) A-FIB/CHADSVASC A-FIB History Current/History of A-Fib/PAF?: Yes Current PO Anticoag Therapy: Yes GIA SIDDIQUI MD Mar 12, 2020 01:17
[2020-03-12] MEDS: CLINDAMYCIN 600 MG in IV 1 EA IV SCH ×3 (06:07→21:41)
[2020-03-12 07:58] LABS: INR 1.6; PROTHROMBIN TIME 18.7 SECONDS (11.8-14.0)
[2020-03-12] MEDS: CETIRIZINE (ZyrTEC) 10 MG TAB PO SCH (09:03)
[2020-03-12] MEDS: lisinopriL 40 MG TAB PO SCH (09:04)
[2020-03-12] MEDS: ASCORBIC ACID 500 MG TAB PO SCH (09:04)
[2020-03-12] MEDS: FUROSEMIDE 40 MG TAB PO SCH (09:04)
[2020-03-12] MEDS: MAGNESIUM OXIDE 400 MG TAB (MAG-OX) PO SCH (09:04)
[2020-03-12 09:23] LABS: BASO % 0.2 % (0.0-1.0); EOS % 0.4 % (0.0-3.0); HEMATOCRIT 30.3 % (36.0-47.0); HEMOGLOBIN 9.9 g/dl (12.0-15.5); LYMPH % 10.6 % (24.0-44.0); MEAN CORPUSCULAR HEMOGLOBIN 33.1 pg (27.0-33.0); MEAN CORPUSCULAR HGB CONC 32.7 g/dl (32.0-36.5); MEAN CORPUSCULAR VOLUME 101.3 fl (80.0-96.0); MONO # 0.9 10^3/uL (0.0-0.8); MONO % 9.3 % (0.0-5.0); NEUTROPHILS # 7.6 10^3/uL (1.5-8.5); NEUTROPHILS % 78.9 % (36.0-66.0); PLATELET COUNT, AUTOMATED 140 10^3/uL (150-450); RED BLOOD COUNT 2.99 10^6/uL (4.00-5.40); WHITE BLOOD COUNT 9.6 10^3/uL (4.0-10.0)
[2020-03-12 09:41] LABS: BILIRUBIN,TOTAL 0.6 MG/DL (0.2-1.0); CALCIUM LEVEL 7.9 MG/DL (8.8-10.2); CREATININE FOR GFR 1.1 MG/DL (0.55-1.30); GLOMERULAR FILTRATION RATE 52.3 (>39); POTASSIUM SERUM 3.9 MEQ/L (3.5-5.1); TOTAL PROTEIN 6.2 GM/DL (6.4-8.2)
[2020-03-12 14:00] VITALS: BP 115/68
[2020-03-12] MEDS: WARFARIN SOD 2.5MG TAB PO SCH (17:16)
[2020-03-12] MEDS: VERAPAMIL 120 MG SR TAB PO SCH (17:17)
[2020-03-12 22:00] VITALS: BP 115/53
[2020-03-13] MEDS: CLINDAMYCIN 600 MG in IV 1 EA IV SCH ×3 (05:04→22:02)
[2020-03-13 06:00] VITALS: BP 112/53
[2020-03-13 07:04] LABS: BASO % 0.3 % (0.0-1.0); EOS # 0.1 10^3/uL (0.0-0.5); EOS % 1.1 % (0.0-3.0); HEMATOCRIT 30.1 % (36.0-47.0); HEMOGLOBIN 9.8 g/dl (12.0-15.5); LYMPH # 1.4 10^3/uL (1.5-5.0); LYMPH % 18.3 % (24.0-44.0); MEAN CORPUSCULAR HEMOGLOBIN 33.1 pg (27.0-33.0); MEAN CORPUSCULAR HGB CONC 32.6 g/dl (32.0-36.5); MEAN CORPUSCULAR VOLUME 101.7 fl (80.0-96.0); MONO % 12.5 % (0.0-5.0); NEUTROPHILS # 5.3 10^3/uL (1.5-8.5); NEUTROPHILS % 66.8 % (36.0-66.0); PLATELET COUNT, AUTOMATED 147 10^3/uL (150-450); RED BLOOD COUNT 2.96 10^6/uL (4.00-5.40); WHITE BLOOD COUNT 7.9 10^3/uL (4.0-10.0)
[2020-03-13 07:33] LABS: ALBUMIN 2.8 GM/DL (3.2-5.2); ALT/SGPT 63 U/L (12-78); BILIRUBIN,TOTAL 0.7 MG/DL (0.2-1.0); BLOOD UREA NITROGEN 26 MG/DL (7-18); CALCIUM LEVEL 7.8 MG/DL (8.8-10.2); CARBON DIOXIDE LEVEL 26 MEQ/L (21-32); CHLORIDE LEVEL 108 MEQ/L (98-107); CREATININE FOR GFR 1.06 MG/DL (0.55-1.30); GLOMERULAR FILTRATION RATE 54.6 (>39); GLUCOSE, FASTING 118 MG/DL (70-100); SODIUM LEVEL 142 MEQ/L (136-145); TOTAL PROTEIN 5.9 GM/DL (6.4-8.2)
[2020-03-13 08:38] LABS: INR 1.58; PROTHROMBIN TIME 18.6 SECONDS (11.8-14.0)
[2020-03-13] MEDS: FUROSEMIDE 40 MG TAB PO SCH (08:42)
[2020-03-13] MEDS: MAGNESIUM OXIDE 400 MG TAB (MAG-OX) PO SCH (08:42)
[2020-03-13] MEDS: ASCORBIC ACID 500 MG TAB PO SCH (08:42)
[2020-03-13] MEDS: lisinopriL 40 MG TAB PO SCH (08:42)
[2020-03-13] MEDS: CETIRIZINE (ZyrTEC) 10 MG TAB PO SCH (08:42)
[2020-03-13] MEDS: ACETAMINOPHEN 500 MG TAB PO PRN ×2 (08:44→22:17)
--- NOTE | 2020-03-13 12:36 | IPNPDOC ---
Text Note Date of Service The patient was seen on 03/13/20. NOTE Subjective: Patient seen and examined at bedside. No acute overnight events reported. Patient states she is feelign better, but still with LLE pain. No other medical complaints. Objective: General: NAD, lying comfortably in bed HEENT: NC/AT, EOMI Lungs: CTA B/L Heart: +S1S2, RRR Abd: soft, obese, NT, +BS Ext: b/l trace edema, chronic venous stasis changes RLE, large cellulitic area LLE, improving from demarcated area A/P: 69 yo female admitted for LLE cellulitis after cat scratch, PMHx afib/HTN and recent celllulitis from unintentional trauma LLE HISTORY OF PRESENT ILLNESS: 69-year-old female with past medical history of hypertension, atrial fibrillation on Coumadin and cellulitis presents with left leg redness/swelling. She reports being scratched by her cat a few days ago. She does report drainage from the scratch site as well. She denies any other associated symptoms, denies fever, shortness of breath, chest pain, nausea, vomiting, diarrhea or constipation. Lower extremity Doppler in the ER is negative for DVT. #Cellulitis. Reports scratch/bite from cat, lower extremity Doppler negative for DVT, clindamycin, cultures pending. #Atrial fibrillation. Continue Coumadin, INR in the morning, continue verapamil for rate control #Hypertension. Continue lisinopril and verapamil DVT prophylaxis: On Coumadin. VS,Fishbone, I+O VS, Fishbone, I+O Laboratory Tests 03/13/20 06:50 Vital Signs Date Time Temp Pulse Resp B/P (MAP) Pulse Ox O2 Delivery O2 Flow Rate FiO2 03/13/20 06:00 98.6 75 18 112/53 (72) 96 Room Air I&O- Last 24 Hours up to 6 AM 03/13/20 05:59 Intake Total 760 ml Output Total 100 ml Balance 660 ml RG HOLLY MD Mar 13, 2020 12:36
[2020-03-13 14:00] VITALS: BP 103/51
[2020-03-13] MEDS: VERAPAMIL 120 MG SR TAB PO SCH (17:51)
[2020-03-13] MEDS: WARFARIN SOD 2.5MG TAB PO SCH (17:51)
[2020-03-13 22:00] VITALS: BP 106/51
[2020-03-14 06:00] VITALS: BP 106/52
[2020-03-14] MEDS: ACETAMINOPHEN 500 MG TAB PO PRN ×2 (06:22→21:33)
[2020-03-14] MEDS: CLINDAMYCIN 600 MG in IV 1 EA IV SCH ×2 (06:22→14:27)
[2020-03-14 06:40] LABS: BASO % 0.5 % (0.0-1.0); EOS # 0.2 10^3/uL (0.0-0.5); EOS % 2.9 % (0.0-3.0); HEMATOCRIT 27.9 % (36.0-47.0); LYMPH # 1.5 10^3/uL (1.5-5.0); LYMPH % 23.4 % (24.0-44.0); MEAN CORPUSCULAR HEMOGLOBIN 33.5 pg (27.0-33.0); MEAN CORPUSCULAR HGB CONC 32.3 g/dl (32.0-36.5); MEAN CORPUSCULAR VOLUME 103.7 fl (80.0-96.0); MONO # 0.8 10^3/uL (0.0-0.8); MONO % 13.2 % (0.0-5.0); NEUTROPHILS # 3.7 10^3/uL (1.5-8.5); NEUTROPHILS % 58.6 % (36.0-66.0); PLATELET COUNT, AUTOMATED 160 10^3/uL (150-450); RED BLOOD COUNT 2.69 10^6/uL (4.00-5.40); WHITE BLOOD COUNT 6.3 10^3/uL (4.0-10.0)
[2020-03-14 06:46] LABS: INR 1.61; PROTHROMBIN TIME 18.9 SECONDS (11.8-14.0)
[2020-03-14 06:57] LABS: C REACTIVE PROTEIN QUANTITATIV 6.91 MG/DL (0.00-0.30); CALCIUM LEVEL 8.4 MG/DL (8.8-10.2); CREATININE FOR GFR 1.26 MG/DL (0.55-1.30); GLOMERULAR FILTRATION RATE 44.7 (>39); POTASSIUM SERUM 4.3 MEQ/L (3.5-5.1)
[2020-03-14 07:25] LABS: ERYTHROCYTE SEDIMENTATION RATE 89 mm/hr (0-30)
[2020-03-14] MEDS: ASCORBIC ACID 500 MG TAB PO SCH (08:36)
[2020-03-14] MEDS: MAGNESIUM OXIDE 400 MG TAB (MAG-OX) PO SCH (08:36)
[2020-03-14] MEDS: CETIRIZINE (ZyrTEC) 10 MG TAB PO SCH (08:36)
[2020-03-14] MEDS: FUROSEMIDE 40 MG TAB PO SCH (08:37)
[2020-03-14] MEDS: lisinopriL 40 MG TAB PO SCH (09:00)
[2020-03-14 10:41] LABS: VITAMIN B12 LEVEL 413 PG/ML
[2020-03-14 10:42] LABS: FOLATE > 24.0 NG/ML
--- NOTE | 2020-03-14 11:43 | IPNPDOC ---
Text Note Date of Service The patient was seen on 03/14/20. NOTE Subjective: Patient seen and examined at bedside. No acute overnight events reported. Patient states she is feelign better, but still with LLE pain. No other medical complaints. Objective: General: NAD, lying comfortably in bed HEENT: NC/AT, EOMI Lungs: CTA B/L Heart: +S1S2, RRR Abd: soft, obese, NT, +BS Ext: b/l trace edema, chronic venous stasis changes RLE, large circumferential cellulitic area LLE with drainage, much improved from demarcated area, some open lacerations that appear to be well healing. A/P: 69 yo female admitted for LLE cellulitis after cat scratch, PMHx afib/HTN and recent cellulitis from unintentional trauma LLE few months ago. #Cellulitis. Reports scratch/bite from cat, lower extremity Doppler negative for DVT, continue IV clindamycin, cultures pending, ESR/CRP increasing - ID c/s pending #Atrial fibrillation. Continue Coumadin, daily INR - slightly subtherapeutic, continue verapamil for rate control #Hypertension. Continue lisinopril and verapamil DVT prophylaxis: On Coumadin. VS,Fishbone, I+O VS, Fishbone, I+O Laboratory Tests 03/14/20 06:16 Vital Signs Date Time Temp Pulse Resp B/P (MAP) Pulse Ox O2 Delivery O2 Flow Rate FiO2 03/14/20 06:00 98.0 68 17 106/52 (70) 95 Room Air I&O- Last 24 Hours up to 6 AM 03/14/20 06:00 Intake Total 1010 ml Output Total 550 ml Balance 460 ml RG HOLLY MD Mar 14, 2020 11:43
[2020-03-14 14:00] VITALS: BP 102/55
[2020-03-14] MEDS ORDERED: WARFARIN SOD 5MG TAB PO SCH (17:00)
[2020-03-14 17:13] VITALS: BP 115/65
[2020-03-14] MEDS: VERAPAMIL 120 MG SR TAB PO SCH (17:13)
[2020-03-14] MEDS: AUGMENTIN 875 MG TAB PO SCH (21:32)
[2020-03-14 22:00] VITALS: BP 114/64
[2020-03-15 05:55] LABS: BASO % 0.5 % (0.0-1.0); EOS # 0.2 10^3/uL (0.0-0.5); EOS % 2.8 % (0.0-3.0); HEMATOCRIT 29.6 % (36.0-47.0); HEMOGLOBIN 9.7 g/dl (12.0-15.5); LYMPH # 1.7 10^3/uL (1.5-5.0); LYMPH % 28.7 % (24.0-44.0); MEAN CORPUSCULAR HEMOGLOBIN 33.3 pg (27.0-33.0); MEAN CORPUSCULAR HGB CONC 32.8 g/dl (32.0-36.5); MEAN CORPUSCULAR VOLUME 101.7 fl (80.0-96.0); MONO # 0.8 10^3/uL (0.0-0.8); MONO % 13.5 % (0.0-5.0); NEUTROPHILS # 3.1 10^3/uL (1.5-8.5); NEUTROPHILS % 52.8 % (36.0-66.0); PLATELET COUNT, AUTOMATED 183 10^3/uL (150-450); RED BLOOD COUNT 2.91 10^6/uL (4.00-5.40); WHITE BLOOD COUNT 5.8 10^3/uL (4.0-10.0)
[2020-03-15 06:00] VITALS: BP 117/65
[2020-03-15 06:08] LABS: INR 1.53; PROTHROMBIN TIME 18.1 SECONDS (11.8-14.0)
[2020-03-15 06:17] LABS: CALCIUM LEVEL 8.4 MG/DL (8.8-10.2); CREATININE FOR GFR 1.01 MG/DL (0.55-1.30); GLOMERULAR FILTRATION RATE 57.7 (>39); POTASSIUM SERUM 4.7 MEQ/L (3.5-5.1)
[2020-03-15 06:37] LABS: ERYTHROCYTE SEDIMENTATION RATE 124 mm/hr (0-30)
[2020-03-15] MEDS: FUROSEMIDE 40 MG TAB PO SCH (08:09)
[2020-03-15] MEDS: MAGNESIUM OXIDE 400 MG TAB (MAG-OX) PO SCH (08:10)
[2020-03-15] MEDS: AUGMENTIN 875 MG TAB PO SCH (08:10)
[2020-03-15] MEDS: lisinopriL 40 MG TAB PO SCH (08:10)
[2020-03-15] MEDS: ASCORBIC ACID 500 MG TAB PO SCH (08:10)
[2020-03-15] MEDS: CETIRIZINE (ZyrTEC) 10 MG TAB PO SCH (08:10)
[2020-03-15] MEDS ORDERED: AMOX875T2 PO (08:51)
--- NOTE | 2020-03-15 08:56 | DS.PDOC ---
Discharge Summary General Date of Admission Mar 12, 2020 at 00:29 Date of Discharge 03/15/20 Discharge Summary CHIEF COMPLAINT: Left leg infection Final Diagnosis: Cellulitis HISTORY OF PRESENT ILLNESS AND THE HOSPITAL COURSE: 69-year-old female with past medical history of hypertension, atrial fibrillation on Coumadin and cellulitis presents with left leg redness/swelling. She reports being scratched by her cat a few days ago. She does report drainage from the scratch site as well. She denies any other associated symptoms, denies fever, shortness of breath, chest pain, nausea, vomiting, diarrhea or constipation. Lower extremity Doppler in the ER is negative for DVT. ID saw the patient as well/ The cellulitis hot better with iv meds. no fluctuance , no draininage and the erythrma also has improved significantly. ID cleared the pt for DC on 10 day course of Augmentin. PHYSICAL EXAMINATION: VITAL SIGNS: Please see below. GENERAL: No distress, morbidly obese HEENT: Normocephalic, atraumatic, moist mucous membranes CARDIOVASCULAR EXAMINATION: S1, S2, no murmurs RESPIRATORY EXAMINATION: Poor air movement, scattered rhonchi, no wheezing ABDOMINAL EXAMINATION: Soft, nontender, nondistended, positive bowel sounds EXTREMITIES: Left lower extremity with swelling, redness significantly improved NEUROLOGICAL EXAMINATION: Alert and oriented 3, no focal deficits Dictations. As per discharge reconciliation medication list Activity as tolerated Diet. 2 g sodium diet Follow-up appointments. PCP in 1 week, ID in 2 weeks Condition on discharge. Patient is medically optimized for discharge Discharge disposition: Home Total time spent on this discharge including coordination of care, review of chart documentation and actual contact is around 35 minutes Vital Signs/I&Os Vital Signs Date Time Temp Pulse Resp B/P (MAP) Pulse Ox O2 Delivery O2 Flow Rate FiO2 03/15/20 06:00 97.9 68 17 117/65 (82) 97 Room Air I&O- Last 24 Hours up to 6 AM 03/15/20 06:00 Intake Total 1880 ml Output Total 1500 ml Balance 380 ml Laboratory Data Labs 24H Laboratory Tests 2 03/15/20 05:22: Immature Granulocyte % (Auto) 1.7, Neutrophils (%) (Auto) 52.8, Lymphocytes (%) (Auto) 28.7, Monocytes (%) (Auto) 13.5H, Eosinophils (%) (Auto) 2.8, Basophils (%) (Auto) 0.5, Neutrophils # (Auto) 3.1, Lymphocytes # (Auto) 1.7, Monocytes # (Auto) 0.8, Eosinophils # (Auto) 0.2, Basophils # (Auto) 0.0, Nucleated Red Blood Cells % (auto) 0.0, Erythrocyte Sedimentation Rate 124H, Prothrombin Time 18.1H, Prothromb Time International Ratio 1.53, Anion Gap 7L, Glomerular Filtration Rate 57.7, Calcium Level 8.4L CBC/BMP Laboratory Tests 03/15/20 05:22 Microbiology Microbiology 03/11/20 Blood Culture - Preliminary, Resulted No Growth after 72 hours. All specime... 03/11/20 Blood Culture - Preliminary, Resulted No Growth after 72 hours. All specime... Discharge Medications Scheduled Amoxicillin/Potassium Clav (Amox-Clav 875-125 mg Tablet) 1 Each Tablet, 875 MG PO BID Ascorbic Acid (Vitamin C) 500 Mg Capsule, 500 MG PO DAILY, (Reported) Cullen/D3/Mag11/Zinc/Property Caretaker/Damon/Bor (Caltrate 600+D Plus Tablet) 1 Each Tablet, 1 TAB PO BID, (Reported) Cetirizine HCl (Cetirizine HCl) 10 Mg Tab, 10 MG PO DAILY, (Reported) Ergocalciferol (Vitamin D2) (Vitamin D2) 50,000 Units Cap, 50,000 UNIT PO 1XWK, (Reported) Furosemide (Furosemide) 40 Mg Tab, 40 MG PO DAILY, (Reported) Lisinopril (Lisinopril) 40 Mg Tab, 40 MG PO DAILY, (Reported) Magnesium Oxide (Magnesium Oxide) 400 Mg Tablet, 400 MG PO DAILY, (Reported) Verapamil HCl (Verapamil ER) 240 Mg Tabcr, 240 MG PO QPM, (Reported) WITH SUPPER Warfarin Sodium (Warfarin Sodium) 5 Mg Tablet, 5 MG PO 3XW, (Reported) M/W/ EVENING Warfarin Sodium (Warfarin Sodium) 2.5 Mg Tablet, 2.5 MG PO 4XWK, (Reported) SUN///SAT EVENING Scheduled PRN Acetaminophen (Acetaminophen) 500 Mg Tablet, 1,000 MG PO Q8H PRN for PAIN, (Reported) Albuterol Sulfate (Proair Hfa) 8.5 Gm Hfa.aer.ad, 2 PUFF INH Q4H PRN for wheezing, (Reported) Fluticasone Propionate (Flonase Allergy Relief) 9.9 Ml [place].susp, 2 SPRAY NARES DAILY PRN for CONGESTION, (Reported) Allergies Coded Allergies: cephalexin (Verified Allergy, Intermediate, SOB, THRUSH, 07/23/19) aspirin (Verified Allergy, Mild, WHEEZING, 07/23/19) naproxen (Verified Allergy, Mild, WHEEZING, 07/23/19) LINO BRICE MD Mar 15, 2020 08:56
[2020-03-15 09:12] LABS: C REACTIVE PROTEIN QUANTITATIV 3.7 MG/DL (0.00-0.30)
--- NOTE | 2020-03-15 10:19 | CR ---
DATE OF CONSULTATION: 03/14/2020 I was asked consult by the hospitalist for evaluation of left lower extremity cellulitis after a cat scratch. HISTORY OF PRESENT ILLNESS: Mrs. Stovall is a 69-year-old female with a history of chronic venous stasis changes of both lower extremities who had trauma to the left leg and had a fan fall on her leg about 2 weeks ago. She developed a hematoma. Then, a couple of days ago, she had a cat scratch after she tripped over her cat. She noticed worsening swelling, redness and pain. She had no fever or chills. No shortness of breath or chest pain. No nausea, vomiting or diarrhea. Lower extremity Doppler showed no deep vein thrombosis (DVT). The patient was treated with IV clindamycin as she reports an allergy to Keflex with thrush. PAST MEDICAL HISTORY: Atrial fibrillation, hypertension, lower extremity venous stasis changes, osteoarthritis, and needs knee replacement. PAST SURGICAL HISTORY: Multiple orthopedic surgeries to the right knee. SOCIAL HISTORY: She lives with her . She denies any smoking, alcohol use or drug use. She has a cat at home. ALLERGIES: - KEFLEX caused thrush - ASPIRIN and NAPROXEN, wheezing MEDICATIONS: - clindamycin at 600 mg IV every 8 hours, currently day #3, she received a total of eight doses - warfarin 5 mg daily - Verapamil 240 mg daily - vitamin C 500 mg daily - Zyrtec 10 mg daily - furosemide 40 mg by mouth daily - lisinopril 40 mg daily - magnesium oxide 400 mg daily - Tylenol p.r.n. LABORATORY DATA: White count on admission was 12.4, today was 6.3, hemoglobin 9, hematocrit 27.9, platelets 160. ESR was 55 up to 89. Sodium 141, potassium 4.3, chloride 111, bicarb 24, BUN 33, creatinine 1.26, glucose 123, calcium 8.4, CRP 6.91 up from 2.18, vitamin B12 413, and folate more than 24. IMAGING: Vascular ultrasound was negative for DVT. Blood cultures two sets were negative. PHYSICAL EXAMINATION: Temperature is 98.4, pulse 72, respirations 17, blood pressure 102/55, O2 sat 97% on room air. T max during this hospitalization was 99.1. Heart: Normal S1, S2. Regular rate and rhythm. No murmurs. Lungs are clear. No wheezes or rhonchi. Abdomen: Morbidly obese, soft, nontender. No visceromegaly. Extremities: Bilateral +1 edema, chronic venous stasis changes of both lower extremities. Left leg with worse erythema, brown discoloration, tenderness of the calf, with three scratch saleh with scabs, lacerations from the cat. Tenderness from below the knee to the ankle. No inguinal adenopathy. Neurologic Exam: Alert and oriented x3. Motor strength is normal. IMPRESSION: This is a 69-year-old female who was admitted with left lower extremity cellulitis after a cat scratch. She has improved with IV clindamycin. White count has improved, swelling has improved as well. The patient's Keflex allergy is most likely thrush. Since her ESR and CRP have increased, I would switch her to Augmentin 1 tablet by mouth twice a day for 10 days. PLAN: Discontinue IV clindamycin and switch to Augmentin 875 mg by mouth twice a day for 10 days. Encouraged to use compression stockings as she has at home, but has not been using them. Discontinue IV clindamycin. Monitor for any allergic reaction to penicillin, although the patient denies a history of penicillin allergy. The patient would like to be discharged first thing in the morning as she has to go to a service.
== END 2020-03-15 12:40 | disposition home or self-care (01) | DRG 383 ==
LOC: M ED 18:46 → M ED INP 03-12 00:29 → ENRESERV 03-12 03:52 → M MS5PR 03-12 04:10
PROVIDERS: ADMIT Internal Medicine; ATTEND Internal Medicine
DX: L03.116 Cellulitis of left lower limb (principal); I48.91 Unspecified atrial fibrillation; I10 Essential (primary) hypertension; Z79.01 Long term (current) use of anticoagulants; Z79.899 Other long term (current) drug therapy; Z88.6 Allergy status to analgesic agent; Z88.8 Allergy status to other drugs, medicaments and biological substances

== ENCOUNTER → 2020-03-29 | Outpatient (CLI) | payer BC, MEDICARE ==
[~2020-03-29] MED LIST changes: +AMOX875T2 PO; +CICL8SOL3 TOP; +CLIN150C14 PO; +ELIQ5TAB PO; +MAGN400T2 PO; +QC A650T3 PO; +TRIA1CR80 TOP
--- NOTE | 2020-04-12 04:44 | ECWPNPC ---
PATIENT NAME: ROBIN NGUYỄN : 1950 GENDER: FEMALE VISIT DATE: 03/29/2020 DISCHARGE DATE: 03/29/20 1200 VISIT LOCKED DATE TIME: PHYSICIAN: BUDDY BILLINGSLEY RESOURCE: BUDDY BILLINGSLEY REASON FOR APPOINTMENT 1. POST DREW FACET BLOCK HISTORY OF PRESENT ILLNESS PAIN CENTER INTAKE QUESTIONS: HERE FOR FOLLOW-UP OF CHRONIC LOW BACK PAIN. PAIN IS BEGINNING TO INCREASE ACROSS HER LOWER BACK. HAS RESPONDED WELL TO THERAPEUTIC LUMBAR FACET BLOCKS IN THE PAST. REPORTS LAST PROCEDURE DONE HERE BEING THERAPEUTIC FACET BLOCK WAS NOT EFFECTIVE PREVIOUS INJECTIONS. WE DISCUSSED TREATMENT OPTIONS. I REVIEWED LUMBAR MRI. I THINK SHE WOULD BE A GOOD CANDIDATE FOR RADIOFREQUENCY. GENERAL: -. FALL RISK SCREENING: SCREENING :NO FALLS REPORTED IN THE LAST YEAR PAIN SCREENING: PATIENT HAS A COMPLAINT OF ACUTE OR CHRONIC PAIN :YES LOCATION OF PAIN:LOW BACK INTENSITY OF PAIN (SCALE OF 1 TO 10):5 PAIN IS INCREASED BY:ACTIVITIES ANY LENGHTH OF TIME PAIN INCREASES NURSING NOTE: -. CURRENT MEDICATIONS TAKING ALBUTEROL 90 MCG/ACT AEROSOL SOLUTION 2 PUFFS INHALATION EVERY 4 HOURS NEEDED, NOTES: PRN TAKING FLONASE 50 MCG/ACT SUSPENSION 2 SPRAYS IN EACH NOSTRIL NASALLY DAILY TAKING CETIRIZINE HCL 10 MG TABLET 1 TABLET ORALLY ONCE A DAY TAKING CALTRATE 600+D 600-400 MG-UNIT TABLET 1 TABLET ORALLY TWICE A DAY TAKING MAGNESIUM 400 MG TABLET 1 TABLETS WITH A MEAL ORALLY ONCE A DAY TAKING VITAMIN C 500 MG CAPSULE 1 TABLET ORALLY ONCE A DAY TAKING ACETAMINOPHEN EXTRA STRENGTH 500 MG TABLET 2 TABS ORALLY EVERY 8 HOURS NEEDED FOR PAIN TAKING DRISDOL 23826 UNIT CAPSULE 1 CAPSULE ORALLY ONCE A MONTH TAKING MULTIVITAMIN ADULTS - TABLET 1 TABLET ORALLY DAILY TAKING TRIAMCINOLONE ACETONIDE 0.1 % CREAM 1 APPLICATION EXTERNALLY TWO TIMES A WEEK TAKING LISINOPRIL 40 MG TABLET 1 TABLET ORALLY ONCE A DAY TAKING VERAPAMIL HCL 240 MG TABLET EXTENDED RELEASE 1 TABLET ORALLY DAILY TAKING FUROSEMIDE 40 MG TABLET 1 TABLET ORALLY TWICE A DAY TAKING COUMADIN 5 MG TABLET 1 TAB ORALLY DAILY TAKING ELIQUIS 5 MG TABLET 1 TABLET ORALLY TWICE A DAY, NOTES: NOT STARTED MEDICATION LIST REVIEWED AND RECONCILED WITH THE PATIENT PAST MEDICAL HISTORY ATRIAL FIBRILLATION HYPERTENSION EDEMA VITAMIN D DEFICIENCY ASTHMA OSTEOARTHRITIS PSORIASIS 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 ALLERGIES ASPIRIN: SNEEZING AND COUGHING - SIDE EFFECTS KEFLEX: THRUSH AND SWOLLEN TONGUE - SIDE EFFECTS NAPROXEN: WHEEZING, SHORTNESS OF BREATH - SIDE EFFECTS SURGICAL HISTORY SURGERY ON LEFT GREAT TOE 1977 1982 FAMILY HISTORY FATHER: MOTHER: 58 YRS, DIAGNOSED WITH DIABETES SOCIAL HISTORY GENERAL: TOBACCO USE ARE YOU A:NONSMOKER , NEVER SMOKER LATEX QUESTIONNAIRE LATEX ALLERGY : HAVE YOU EVER DEVELOPED ANY TYPE OF REACTION AFTER HANDLING LATEX PRODUCTS SUCH RUBBER GLOVES, CONDOMS, DIAPHRAGMS, BALLOONS, SOCKS, OR UNDERWEAR?NO LATEX ALLERGY : HAVE YOU EVER DEVELOPED ANY TYPE OF REACTION DURING OR AFTER DENTAL APPOINTMENT, VAGINAL/RECTAL EXAMINATION, SURGICAL PROCEDURE, OR ANY OTHER EXPOSURE?NO DATE ASKED : 03/07/2020 LATEX RISK : HAVE YOU EVER HAD ANY DIFFICULTY BREATHING OR HIVES AFTER EATING OR HANDLING ANY FRUITS, OR VEGETABLES; SUCH KIWI, BANANAS, STONE FRUITS, OR CHESTNUTSNO LATEX RISK : DO YOU HAVE A PREVIOUS PERSONAL HISTORY OF MORE THAN NINE SURGERIES, SPINA BIFIDA, OR REPEATED CATHERIZATIONS? NO LATEX RISK : ARE YOU FREQUENTLY EXPOSED TO LATEX PRODUCTS IN YOUR OCCUPATION?NO LUNG CANCER SCREENING SMOKING STATUS:NON SMOKER BMI CARE GOAL FOLLOW-UP ABOVE NORMAL BMI FOLLOW-UPDIETARY MANAGEMENT EDUCATION, GUIDANCE, AND COUNSELING ALCOHOL SCREENING DID YOU HAVE A DRINK CONTAINING ALCOHOL IN THE PAST YEAR?NO POINTS0 INTERPRETATIONNEGATIVE RECREATIONAL DRUG USE DENIES. CAFFEINE CAFFEINE USE?YES HOW OFTEN AND HOW MUCH? 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 EXERCISE: WALKS. MARITAL STATUS: . OTHERS AT HOME: SPOUSE. NEW PATIENT PAIN DIARY TODAY'S VISIT 02/17/20 PATIENT DESCRIBES PAIN :ACHING, IT COMES AND GOES FROM 0-10, WHAT LEVEL IS YOUR PAIN TODAY?5 PRECIPITATING FACTORS STANDING, SITTING ALLEVIATING FACTORS LAYIND DOWN IMPACT ON FUNCTION NO PAIN CLINIC PFS, CLERGY, PUBLIC HEALTH REFERRALS WAS THE PROVIDER NOTIFIED OF ANY PERTINENT INFO?YES HAS THE PATIENT BEEN EDUCATED REGARDING HIS/HER PLAN OF CARE?YES HAS THE PATIENT BEEN EDUCATED REGARDING PAIN, THE RISK FOR PAIN, THE IMPORTANCE OF EFFECTIVE PAIN MANAGEMENT, AND THE PAIN ASSESSMENT PROCESS?YES PROCEDURE APPT, IV, PO SEDATION ADVANCE DIRECTIVE ADVANCE DIRECTIVE DISCUSSED WITH PATIENT:YES PATIENT HAS NO ADVANCED DIRECTIVE, INFORMATION ON HCP OFFERED AND DECLINED. HOSPITALIZATION/MAJOR DIAGNOSTIC PROCEDURE SURGERIES ABOVE CELLULITIS IN LEFT LEG 06/2019 CELLULITIS LEFT LEG 02/2020 REVIEW OF SYSTEMS CONSTITUTIONAL: ANY RECENT FEVER NO . CHILLS NO . WEIGHT CHANGE OF UNKNOWN REASONS NO . GASTROENTEROLOGY: NEW UNEXPLAINABLE CHANGES IN BOWEL CONTROL NO . CONSTIPATION NO . GENITOURINARY: ANY NEW CHANGE IN BLADDER CONTROL? NO . NEUROLOGY: NEW ONSET DIZZINESS OR NEUROLOGICAL CHANGES NOT MENTIONED NO . NEW NUMBNESS OR PAIN PATTERNS NOT MENTIONED AND PERTINENT TO TODAY'S VISIT NO . CARDIOLOGY: NEW CHEST PRESSURE NO . NEW CHEST PAIN NO . RESPIRATORY: UNEXPLAINABLE COUGH NO . NEW SHORTNESS OF BREATH NO . VITAL SIGNS WT 264.8 LBS, HT 63.50 IN, BMI 46.17 INDEX, BP 117/58 MM HG, HR 84 /MIN, RR 18 /MIN, TEMP 96.5 F, OXYGEN SAT % 97%, NA INITIALS AW 1108. EXAMINATION GENERAL EXAMINATION: GENERALALERT. PSYCHAFFECT NORMAL. NECK:TRACHEA MIDLINE. NO CERVICAL OR SUPRACLAVICULAR LYMPHADENOPATHY NOTED. LUNGS:LUNG PRICE ARE CLEAR TO AUSCULTATION BILATERALLY. GOOD MOVEMENT OF AIR. HEART:S1, S2 IN A REGULAR RATE AND RHYTHM. NO SIGNIFICANT MURMURS, RUBS OR GALLOPS NOTED. MUSCULOSKELETAL:3/5 RIGHT-5/5LEFT MST. LUMBAR:INSPECTION-PSORIATIC PLAQUES LUMBAR SPINE/PARASPINAL , PALPATION: + FOR PAIN OVER L/S SPINE. + FOR PAIN OVER L/S PARSPINALS SPECIFIC POINT TENDERNESS OVER BILAT. L4-5, L5-S1 LUMBAR FACETS. DIAGNOSTIC TESTS REVIEWEDMRI L/S [id number]-[id number]. ASSESSMENTS LUMBAR FACET ARTHROPATHY - M46.96 (PRIMARY) PROTRUDED LUMBAR DISC - M51.26 TREATMENT LUMBAR FACET ARTHROPATHY NOTES: BILATERAL DIAGNOSTIC L4-5, L5-S1 FACET BLOCK. PROCEDURE CODES FA211 ESTABILISHED PATIENT [facility] CHARGE DISPOSITION & COMMUNICATION FOLLOW UP POST (REASON: BILATERAL DIAGNOSTIC L4-5, L5-S1 FACET BLOCK) ELECTRONICALLY SIGNED BY SHARLENE MONTERROSO ON 04/11/2020 AT 03:03 PM EDT DISCLAIMER : THIS IS A VISIT SUMMARY EXTRACTED FROM THE [employer] CHART. IT IS NOT A COPY OF THE [employer] PROGRESS NOTE. YURY
== END ==
LOC: M PAIN 11:00
PROVIDERS: ATTEND Nurse Practitioner Family
DX: M46.96 Unspecified inflammatory spondylopathy, lumbar region (principal); M51.26 Other intervertebral disc displacement, lumbar region

== ENCOUNTER 2020-03-30 13:27 | Emergency (ER) | payer BC ==
[~2020-03-30] VITALS: Ht 162.6 cm; Wt 118.3 kg
[~2020-03-30 13:27] MED LIST changes: -CICL8SOL3 TOP; -CLIN150C14 PO; -ELIQ5TAB PO; -QC A650T3 PO; -TRIA1CR80 TOP
[2020-03-30 14:53] LABS: BASO % 0.2 % (0.0-1.0); EOS # 0.1 10^3/uL (0.0-0.5); EOS % 1.1 % (0.0-3.0); HEMATOCRIT 34.1 % (36.0-47.0); HEMOGLOBIN 10.8 g/dl (12.0-15.5); LYMPH # 1.7 10^3/uL (1.5-5.0); LYMPH % 19.8 % (24.0-44.0); MEAN CORPUSCULAR HGB CONC 31.7 g/dl (32.0-36.5); MEAN CORPUSCULAR VOLUME 104.3 fl (80.0-96.0); MONO % 11.7 % (0.0-5.0); NEUTROPHILS # 5.6 10^3/uL (1.5-8.5); NEUTROPHILS % 66.6 % (36.0-66.0); PLATELET COUNT, AUTOMATED 244 10^3/uL (150-450); RED BLOOD COUNT 3.27 10^6/uL (4.00-5.40); WHITE BLOOD COUNT 8.4 10^3/uL (4.0-10.0)
[2020-03-30 15:15] LABS: ERYTHROCYTE SEDIMENTATION RATE 71 mm/hr (0-30)
[2020-03-30 15:17] LABS: INR 2.52
--- NOTE | 2020-03-30 15:48 | REP ---
Duplex extremity venous ultrasound: Left lower extremity History: Redness and swelling question DVT. Findings: The deep veins are anechoic and fully compressible from the groin to the popliteal fossa in the left lower extremity. Color flow imaging is homogeneous. Spectral Doppler interrogation demonstrates intact respiratory variation in flow and normal manual augmentation of flow. There is no evidence of deep vein thrombosis. Impression: Negative left lower extremity duplex venous ultrasound. No evidence of deep vein thrombosis. Electronically Signed by Aaron Neff MD 03/30/2020 03:40 P
[2020-03-30] MEDS ORDERED: CLIN150C14 PO (16:06)
[2020-03-30 16:24] VITALS: BP 116/65
== END 2020-03-30 16:28 | disposition home or self-care (01) ==
LOC: M ED 13:27
DX: L03.116 Cellulitis of left lower limb (principal); Z79.899 Other long term (current) drug therapy; Z88.6 Allergy status to analgesic agent; Z88.8 Allergy status to other drugs, medicaments and biological substances

== ENCOUNTER 2020-04-02 13:16 | Emergency (ER) | payer BC ==
[~2020-04-02] VITALS: Ht 162.6 cm; Wt 119.1 kg
[~2020-04-02 13:16] MED LIST changes: +CLIN150C14 PO
[2020-04-02 14:46] VITALS: BP 137/60
== END 2020-04-02 14:54 | disposition home or self-care (01) ==
LOC: M ED 13:16
DX: R60.0 Localized edema (principal); I87.2 Venous insufficiency (chronic) (peripheral); I48.91 Unspecified atrial fibrillation; Z79.01 Long term (current) use of anticoagulants; Z88.1 Allergy status to other antibiotic agents; Z88.8 Allergy status to other drugs, medicaments and biological substances

== ENCOUNTER 2020-04-12 15:00 | Inpatient (IN) | payer BC ==
[~2020-04-12] VITALS: Ht 162.6 cm; Wt 120.3 kg
[2020-04-12] MEDS ORDERED: ELIQ5TAB PO (15:08)
[2020-04-12 17:03] LABS: BASO % 0.2 % (0.0-1.0); EOS % 0.1 % (0.0-3.0); HEMATOCRIT 37.1 % (36.0-47.0); HEMOGLOBIN 11.8 g/dl (12.0-15.5); LYMPH # 1.1 10^3/uL (1.5-5.0); LYMPH % 6.6 % (24.0-44.0); MEAN CORPUSCULAR HEMOGLOBIN 32.9 pg (27.0-33.0); MEAN CORPUSCULAR HGB CONC 31.8 g/dl (32.0-36.5); MEAN CORPUSCULAR VOLUME 103.3 fl (80.0-96.0); MONO % 6.1 % (0.0-5.0); NEUTROPHILS # 13.9 10^3/uL (1.5-8.5); NEUTROPHILS % 86.4 % (36.0-66.0); PLATELET COUNT, AUTOMATED 219 10^3/uL (150-450); RED BLOOD COUNT 3.59 10^6/uL (4.00-5.40)
[2020-04-12 17:26] LABS: ERYTHROCYTE SEDIMENTATION RATE 81 mm/hr (0-30)
[2020-04-12 18:04] LABS: C REACTIVE PROTEIN QUANTITATIV 3.42 MG/DL (0.00-0.30); CALCIUM LEVEL 9.2 MG/DL (8.8-10.2); CREATININE FOR GFR 1.43 MG/DL (0.55-1.30); GLOMERULAR FILTRATION RATE 38.6 (>39); POTASSIUM SERUM 6.2 MEQ/L (3.5-5.1)
--- NOTE | 2020-04-12 18:10 | REPVR ---
PROCEDURE INFORMATION: Exam: US Duplex Left Lower Extremity Veins, Limited Exam date and time: 04/12/2020 5:56 PM Age: 69 years old Clinical indication: Swelling (edema) of limb; Lower extremity, left; Additional info: Redness, swelling, warmth R/O dvt TECHNIQUE: Imaging protocol: Real-time Duplex ultrasound of the Left Lower Extremity with 2-D porter scale, color Doppler flow and spectral waveform analysis with image documentation. Limited exam focused on the left lower extremity veins. COMPARISON: US Duplex, Ext,LOWER veins,unilat 03/30/2020 3:27 PM FINDINGS: Left deep veins: Unremarkable. The common femoral, femoral, proximal profunda femoral and popliteal veins are patent without thrombus. Normal Doppler waveforms. Normal compressibility and/or augmentation response. Left superficial veins: Unremarkable. Saphenofemoral junction is patent without thrombus. Soft tissues: Unremarkable. IMPRESSION: No DVT of the left lower extremity. Electronically signed by: Jaime Saleh On 04/12/2020 18:09:59 PM
[2020-04-12] MEDS ORDERED: CLINDAMYCIN 600 MG in IV 1 EA IV ONE (19:00)
[2020-04-12] MEDS ORDERED: QC A650T3 PO (19:18)
[2020-04-12] MEDS ORDERED: CICL8SOL3 TOP (19:18)
[2020-04-12] MEDS ORDERED: TRIA1CR80 TOP (19:18)
[2020-04-12] MEDS ORDERED: FURO40TA2 PO (19:18)
[2020-04-12] MEDS ORDERED: NS 500 ML IV ONE (19:30)
[2020-04-12] MEDS ORDERED: ACETAMINOPHEN TAB 650MG DOSE (2X325MG) PO PRN (19:45)
[2020-04-12] MEDS ORDERED: VANCOMYCIN HCL 750 MG, VIAL MATE ADAPTER 1 EACH in D5W 250 ML IV SCH (19:45)
[2020-04-12] MEDS ORDERED: NS 1,000 ML IV SCH (19:45)
[2020-04-12] MEDS ORDERED: SOD POLYSTYRENE SULFONATE SUSP 15 GM/60 ML UD PO ONE (20:00)
[2020-04-12] MEDS ORDERED: PIPERACILLIN/TAZOBACTAM SOD 3.375 GM in D5W MINI-BAG PLUS 50 ML IV SCH (21:00)
[2020-04-12] MEDS ORDERED: ALBUTEROL SULFATE 2.5 MG/0.5 ML INH NEB SOLN INH PRN (21:00)
[2020-04-12] MEDS ORDERED: TRIAMCINOLONE ACET 0.1% CREAM 80 GM TOP PRN (21:00)
[2020-04-12] MEDS ORDERED: FLUTICASONE PROP 0.05% NASAL SPRAY 16 GM (FLONASE) NARES PRN (21:00)
--- NOTE | 2020-04-12 21:01 | HPEPDOC ---
General Date of Admission Apr 12, 2020 at 19:41 Date of Service: Apr 12, 2020 Chief Complaint The patient is a 69-year-old female Who presented to hospital with complaints of left leg pain and redness History of Present Illness Patient is a 69-year-old female with a PMHx of A. fib (on Eliquis), HTn, Hx of Cellulitis of LLE (/ Cat bite, 03/12) who presented to the hospital with again complaints of worsening left leg, warmth, redness and tenderness. Patient was recently at [facility] on March 30 and April 02 for lower extremity cellulitis as well as swelling. Patient was prescribed clindamycin by mouth, which she has been taking regularly. Despite taking this medication patient had failed to notice any improvement. Patient has presented with worsening redness, warmth and an area of drainage. Patient describes the drainage is mostly clear but sometimes pink tinged. Patient denies any fevers but has experienced chills. Patient noted that her prior cellulitis was associated with a cat scratch. . She also noted that around that time, she had dropped a fan on her leg, which is now the area that is draining. Patient reports some nausea without vomiting. Denies chest pain, shortness of breath, palpitations, abdominal pain or constipation. She does report diarrhea occurred today. 3-4 episodes of loose stool. Denies any urinary discomfort. Patient is unaware of any changes in her weight or her appetite. Home Medications Scheduled Apixaban (Eliquis) 5 Mg Tablet, 5 MG PO BID, (Reported) Ascorbic Acid (Vitamin C) 500 Mg Capsule, 500 MG PO DAILY, (Reported) Cullen/D3/Mag11/Zinc/Rawhide Bone Roller/Damon/Bor (Caltrate 600+D Plus Tablet) 1 Each Tablet, 1 TAB PO BID, (Reported) Cetirizine HCl (Cetirizine HCl) 10 Mg Tab, 10 MG PO DAILY, (Reported) Ergocalciferol (Vitamin D2) (Vitamin D2) 50,000 Units Cap, 50,000 UNIT PO QMONTH, (Reported) Furosemide (Furosemide) 40 Mg Tab, 40 MG PO DAILY, (Reported) Lisinopril (Lisinopril) 40 Mg Tab, 40 MG PO DAILY, (Reported) Magnesium Oxide (Magnesium Oxide) 400 Mg Tablet, 400 MG PO DAILY, (Reported) Verapamil HCl (Verapamil ER) 240 Mg Tabcr, 240 MG PO QPM, (Reported) WITH SUPPER Scheduled PRN Acetaminophen (Acetaminophen 8 Hour) 650 Mg Tablet.er, 650 MG PO Q8H PRN for PAIN, (Reported) Albuterol Sulfate (Proair Hfa) 8.5 Gm Hfa.aer.ad, 2 PUFF INH Q4H PRN for wheezing, (Reported) Ciclopirox (Ciclopirox) 6.6 Ml Solution, 1 APLCT TOP DAILY PRN for TOENAILS, (Reported) apply to affected area(s) Fluticasone Propionate (Flonase Allergy Relief) 9.9 Ml [place].susp, 2 SPRAY NARES DAILY PRN for CONGESTION, (Reported) Furosemide (Furosemide) 40 Mg Tablet, 40 MG PO DAILY PRN for EDEMA, (Reported) CAN TAKE ADDITIONAL 40MG PRN Triamcinolone Acet (Triamcinolone Acetonide 0.1% Crm) 80 Gm Cream..g., 1 APLCT TOP 2XW PRN for PSORIASIS, (Reported) Allergies Coded Allergies: cephalexin (Verified Allergy, Intermediate, SOB, THRUSH, 07/23/19) aspirin (Verified Allergy, Mild, WHEEZING, 07/23/19) naproxen (Verified Allergy, Mild, WHEEZING, 07/23/19) Past Medical History Medical History A. 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 Review of Systems Other systems 10 point review of systems complete, all negative otherwise stated in HPI Vital Signs - Vitals: BP 94/53, HR 93, RR 19, Sat 99%RA, Temp 98.7F - General: Lying in bed, Speaking in full sentences, AAOx3 - HEENT: NC, AT, PERRLA - CVS: +S1S2, - Murmurs / rubs / gallops - Lungs: Fair air entry bilaterally, No appreciable wheezing / rales / rhonchi - Abdomen: Soft, Non-distended, Non-tender - Extremities: Trace LE edema, No calf tenderness - Neuro: No focal motor or sensory deficit - Skin: Left lower extremity with warmth, erythema, tenderness and small area of drainage on anterior surface Laboratory Data Labs 24H Laboratory Tests 2 04/12/20 16:37: Immature Granulocyte % (Auto) 0.6, Neutrophils (%) (Auto) 86.4H, Lymphocytes (%) (Auto) 6.6L, Monocytes (%) (Auto) 6.1H, Eosinophils (%) (Auto) 0.1, Basophils (%) (Auto) 0.2, Neutrophils # (Auto) 13.9H, Lymphocytes # (Auto) 1.1L, Monocytes # (Auto) 1.0H, Eosinophils # (Auto) 0.0, Basophils # (Auto) 0.0, Nucleated Red Blood Cells % (auto) 0.0, Erythrocyte Sedimentation Rate 81H, Anion Gap 7L, Glomerular Filtration Rate 38.6L, Calcium Level 9.2, C-Reactive Protein, Quantitative 3.42H 04/12/20 16:40: POC Glucose (Misc Panel) 149H, POC Sodium (Misc Panel) 137, POC Potassium (Misc Panel) 6.2*H, POC Chloride (Misc Panel) 106, POC Total CO2 (Misc Panel) 22.0L, POC Blood Urea Nitrogen (Misc Panel 31H, POC Ionized Calcium (Misc Panel) 4.9, POC Creatinine (Misc Panel) 1.3, POC Hematocrit (Misc Panel) 37.0L CBC/BMP Laboratory Tests 04/12/20 16:37 Plan / VTE VTE Prophylaxis Ordered?: Yes Plan Plan Cellulitis of LLE - Patient presented to the emergency room with complaints of worsening redness, warmth and drainage of her left lower extremity - Failed outpatient oral antibiotics with clindamycin; we will not continue with clindamycin that the ER has provided - Hx of Cellulitis of LLE (2/ Cat bite, 03/12) - She remained hemodynamically stable and afebrile - Leukocytosis with neutrophil predominance - Duplex US 04/12: No DVT of the left lower extremity. - Will check blood cultures / Lactic acid / Procalcitonin / MRSA screen / Wound cultures - Will start Zosyn and Vancomycin and IV fluid hydration Hyperkalemia - EKG reviewed - c/w Telemetry monitoring - Will provide kayexylate Acute kidney injury - Baseline creatinine of approximately 1 - Cr on admission of 1.43 - Will hold diuretics therapy / Nephrotoxic medications - Will start IV fluid hydration A. fib - c/w Rate control with Verapamil - c/w full anticoagulation with Eliyung HTN - BP well controlled - Hold Lisinopril for now (re: FREDDIE) Reactive airway disease - c/w Inhaled therapy as ordered Psoriasis - c/w Triamcinolone cream Vitamin D deficiency - Will continue supplementation as outpatient DVT prophylaxis - Will c/w full anticoagulation with ASHLIE Vivar MD Apr 12, 2020 21:01
--- NOTE | 2020-04-12 21:05 | ECGEPIP ---
[facility] - ED Test Date: 2020-04-12 Pat Name: ROBIN NGUYỄN Department: Room: - Gender: Female Department Editor: : 1950 Requested By: DENICE SU Order Number: [id number] Reading MD: Ivette Kohler Measurements Intervals [place] Rate: 90 P: 67 WI: 131 QRS: 39 QRSD: 105 T: 44 QT: 373 QTc: 457 Interpretive Statements SINUS RHYTHM NSTTW abnormalities NO PRIOR Electronically Signed on 04-12-2020 21:05:00 EDT by Ivette Kohler
[2020-04-13] VITALS (7 sets, daily range): BP systolic 112–154; BP diastolic 52–71
[2020-04-13] MEDS ORDERED: VANCOMYCIN HCL 1,000 MG, VIAL MATE ADAPTER 1 EACH in D5W 250 ML IV ONE (01:15)
[2020-04-13] MEDS: APIXABAN 5 MG TAB (ELIQUIS) PO SCH ×3 (01:19→19:46)
[2020-04-13] MEDS: LACTOBACILLUS ACIDOPHILUS CAP (BACID) PO SCH ×5 (01:19→19:46)
[2020-04-13] MEDS: VERAPAMIL 120 MG SR TAB PO SCH ×2 (01:22→17:24)
[2020-04-13] MEDS: PIPERACILLIN/TAZOBACTAM SOD 3.375 GM in D5W MINI-BAG PLUS 50 ML IV SCH ×4 (03:20→19:46)
[2020-04-13] MEDS: VANCOMYCIN HCL 1,000 MG, VIAL MATE ADAPTER 1 EACH in D5W 250 ML IV SCH ×2 (04:23→16:53)
[2020-04-13 05:54] LABS: BASO % 0.2 % (0.0-1.0); EOS # 0.1 10^3/uL (0.0-0.5); EOS % 0.5 % (0.0-3.0); HEMOGLOBIN 10.3 g/dl (12.0-15.5); LYMPH % 10.6 % (24.0-44.0); MEAN CORPUSCULAR HEMOGLOBIN 32.5 pg (27.0-33.0); MEAN CORPUSCULAR HGB CONC 31.2 g/dl (32.0-36.5); MEAN CORPUSCULAR VOLUME 104.1 fl (80.0-96.0); MONO # 0.9 10^3/uL (0.0-0.8); MONO % 9.5 % (0.0-5.0); NEUTROPHILS # 7.5 10^3/uL (1.5-8.5); NEUTROPHILS % 78.8 % (36.0-66.0); PLATELET COUNT, AUTOMATED 170 10^3/uL (150-450); RED BLOOD COUNT 3.17 10^6/uL (4.00-5.40); WHITE BLOOD COUNT 9.5 10^3/uL (4.0-10.0)
[2020-04-13 06:31] LABS: CALCIUM LEVEL 8.3 MG/DL (8.8-10.2); CREATININE FOR GFR 1.5 MG/DL (0.55-1.30); GLOMERULAR FILTRATION RATE 36.5 (>39); MAGNESIUM LEVEL 2.3 MG/DL (1.8-2.4); POTASSIUM SERUM 4.5 MEQ/L (3.5-5.1)
[2020-04-13] MEDS: ASCORBIC ACID 500 MG TAB PO SCH (08:06)
[2020-04-13] MEDS: MAGNESIUM OXIDE 400 MG TAB (MAG-OX) PO SCH (08:07)
[2020-04-13] MEDS: CETIRIZINE (ZyrTEC) 10 MG TAB PO SCH (08:07)
[2020-04-13] MEDS: NS 0.45% 1,000 ML IV SCH ×2 (08:14→19:48)
--- NOTE | 2020-04-13 17:43 | IPNPDOC ---
Date Seen The patient was seen on 04/13/20. Progress Note SUBJECTIVE: No acute complaints. Denies n/v, fevers, abdominal pain, chills, shortness of breath or chest pain. OBJECTIVE: VITAL SIGNS: Please see below PHYSICAL EXAMINATION: - General: Lying in bed, Speaking in full sentences, AAOx3 - HEENT: NC, AT, PERRLA - CVS: +S1S2, - Murmurs / rubs / gallops - Lungs: Fair air entry bilaterally, No appreciable wheezing / rales / rhonchi - Abdomen: Soft, Non-distended, Non-tender - Extremities: Trace LE edema, No calf tenderness - Neuro: No focal motor or sensory deficit - Skin: Left lower extremity with warmth, erythema, tenderness and small area of drainage on anterior surface LABORATORY: Please see below MICROBIOLOGY: Blood cultures x 2 sets: pending GI panel: neg IMAGING: Duplex US 04/12: No DVT of the left lower extremity. ASSESSMENT: 69 y/o F with PMH of PLAN: 1. Cellulitis of LLE - Failed outpatient oral antibiotics with clindamycin; we will not continue with clindamycin that the ER has provided; Hx of Cellulitis of LLE (2/2 Cat bite, 03/12) - WBC 9.5 improved from 16K - Micro: above - C/w Zosyn and Vancomycin, IVF 2. Acute kidney injury likely 2/2 to medications vs. dehydration - Baseline creatinine of approximately 1 - Cr worsened compared to 04/13/20 to 1.5 - Continue to hold diuretics therapy / Nephrotoxic medications - Increased fluids to 100 cc/hr, 1/2 0.45 NSS continuous - F/u AM labs 3. Hyperglycemia likely 2/2 to acute infection -BS >220 -No known dM type II, last HbA1c 01/18/20 was <6. -F/u repeat HbA1c, lipid panel -Starting on ISS, AC/HS blood sugar checks, consistent carb diet 4. Hyperkalemia- resolved - Potassium WNL s/p kayexylate - F/u AM labs - Tele 5. A. fib - c/w Rate control with Verapamil - c/w full anticoagulation with Eliquis 6. HTN - BP well controlled - Hold Lisinopril for now (re: FREDDIE) 7. Reactive airway disease - c/w Inhaled therapy as ordered 8. Psoriasis - c/w Triamcinolone cream 9. Vitamin D deficiency - Will continue supplementation as outpatient 10. DVT prophylaxis - Will c/w full anticoagulation with Eliquis DISPOSITION: Currently inpatient status. PT/OT ordered for today, f/u recommendations. Plan is home when medically improved. VS, I&O, 24H, Fishbone Vital Signs/I&O Vital Signs Date Time Temp Pulse Resp B/P (MAP) Pulse Ox O2 Delivery O2 Flow Rate FiO2 04/13/20 17:24 85 139/65 04/13/20 16:00 96.6 17 99 Room Air I&O- Last 24 Hours up to 6 AM 04/13/20 06:00 Intake Total 750 ml Output Total 400 ml Balance 350 ml Laboratory Data 24H LABS Laboratory Tests 2 04/12/20 21:36: Lactic Acid Level 2.0, Procalcitonin 0.65 04/13/20 04:25: Methicillin-Resist S.aureus DNA PCR NOT DETECTED 04/13/20 05:35: Immature Granulocyte % (Auto) 0.4, Neutrophils (%) (Auto) 78.8H, Lymphocytes (%) (Auto) 10.6L, Monocytes (%) (Auto) 9.5H, Eosinophils (%) (Auto) 0.5, Basophils (%) (Auto) 0.2, Neutrophils # (Auto) 7.5, Lymphocytes # (Auto) 1.0L, Monocytes # (Auto) 0.9H, Eosinophils # (Auto) 0.1, Basophils # (Auto) 0.0, Nucleated Red Blood Cells % (auto) 0.0, Anion Gap 9, Glomerular Filtration Rate 36.5L, Calcium Level 8.3L, Magnesium Level 2.3 CBC/BMP Laboratory Tests 04/13/20 05:35 Microbiology Microbiology 04/13/20 Gastrointestinal Tract Panel (PCR) - Final, Complete 04/12/20 Blood Culture, Received Pending 04/12/20 Blood Culture, Received Pending Current Medications Current Medications Medications (Trade) Dose Ordered Sig/Yamil Route PRN Reason Start Time Stop Time Status Last Admin Dose Admin Acetaminophen (Tylenol Tab) 650 mg Q4H PRN PO PAIN OR FEVER 04/12/20 19:45 04/13/20 01:19 Albuterol Sulfate (Proventil Neb) 2.5 mg Q2HP PRN INH SOB/WHEEZING 04/12/20 21:00 Apixaban (Eliquis) 5 mg BID PO 04/12/20 21:00 04/13/20 08:07 Ascorbic Acid (Vitamin C) 500 mg DAILY PO 04/13/20 09:00 04/13/20 08:06 Cetirizine HCl (ZyrTEC) 10 mg DAILY PO 04/13/20 09:00 04/13/20 08:07 Fluticasone Propionate (Flonase 0.05% Nasal [place]) 2 spray DAILY PRN NARES CONGESTION 04/12/20 21:00 Home Med (Med Rec Complete!) ASDIRECTED XX 04/12/20 19:30 04/12/20 19:21 DC Lactobacillus Acidophilus (Bacid) 1 ea WMHS PO 04/12/20 21:00 04/13/20 17:23 Magnesium Oxide (Mag-Ox) 400 mg DAILY PO 04/13/20 09:00 04/13/20 08:07 Piperacillin Sod/ Tazobactam Sod 3.375 gm/Dextrose 50 ml @ 50 mls/hr Q6H IV 04/12/20 21:00 04/13/20 01:00 DC Piperacillin Sod/ Tazobactam Sod 3.375 gm/Dextrose 50 ml @ 50 mls/hr Q6H IV 04/13/20 02:00 04/13/20 15:48 Sodium Chloride 1,000 ml @ 80 mls/hr [id number] IV 04/12/20 19:45 04/13/20 08:06 DC 04/13/20 01:18 Sodium Chloride 1,000 ml @ 100 mls/hr Q10H IV 04/13/20 08:15 04/13/20 08:14 Triamcinolone Acetonide (Kenalog 0.1% Cream) APPLY TO PSORIASIS AREAS 2XW PRN TOP PSORIASIS 04/12/20 21:00 Vancomycin HCl 750 mg/IV Miscellaneous Supplies 1 each/ Dextrose 275 ml @ 275 mls/hr Q12H IV 04/12/20 19:45 04/13/20 01:33 DC Vancomycin HCl 1000 mg/IV Miscellaneous Supplies 1 each/ Dextrose 270 ml @ 270 mls/hr Q12H IV 04/13/20 04:00 04/13/20 16:53 Verapamil HCl (Isoptin-Sr, Calan Sr) 240 mg DAILY@1800 PO 04/12/20 18:00 04/13/20 17:24 Allergies Coded Allergies: cephalexin (Verified Allergy, Intermediate, SOB, THRUSH, 07/23/19) aspirin (Verified Allergy, Mild, WHEEZING, 07/23/19) naproxen (Verified Allergy, Mild, WHEEZING, 07/23/19) Jodi Sheets MD Apr 13, 2020 17:42
[2020-04-13] MEDS ORDERED: DEXTROSE 50% 50 ML SYRINGE IV PRN (17:45)
[2020-04-13] MEDS ORDERED: GLUCOSE 4GM CHEW TABLET PO PRN (17:45)
[2020-04-13] MEDS ORDERED: GLUCAGON INJ 1MG VIAL SC PRN (17:45)
[2020-04-13] MEDS ORDERED: HumaLOG INSULIN (NovoLOG) PER UNIT SC SCH (21:00)
[2020-04-14] MEDS: PIPERACILLIN/TAZOBACTAM SOD 3.375 GM in D5W MINI-BAG PLUS 50 ML IV SCH ×4 (02:51→19:27)
[2020-04-14 03:00] VITALS: BP 115/56
[2020-04-14 03:22] LABS: BASO % 0.3 % (0.0-1.0); EOS # 0.1 10^3/uL (0.0-0.5); HEMATOCRIT 28.2 % (36.0-47.0); HEMOGLOBIN 9.1 g/dl (12.0-15.5); LYMPH # 1.2 10^3/uL (1.5-5.0); LYMPH % 18.3 % (24.0-44.0); MEAN CORPUSCULAR HEMOGLOBIN 33.3 pg (27.0-33.0); MEAN CORPUSCULAR HGB CONC 32.3 g/dl (32.0-36.5); MEAN CORPUSCULAR VOLUME 103.3 fl (80.0-96.0); MONO # 0.9 10^3/uL (0.0-0.8); MONO % 13.9 % (0.0-5.0); NEUTROPHILS # 4.3 10^3/uL (1.5-8.5); NEUTROPHILS % 65.3 % (36.0-66.0); PLATELET COUNT, AUTOMATED 156 10^3/uL (150-450); RED BLOOD COUNT 2.73 10^6/uL (4.00-5.40); WHITE BLOOD COUNT 6.6 10^3/uL (4.0-10.0)
[2020-04-14 03:43] LABS: ERYTHROCYTE SEDIMENTATION RATE 107 mm/hr (0-30)
[2020-04-14 03:44] LABS: C REACTIVE PROTEIN QUANTITATIV 8.21 MG/DL (0.00-0.30); CALCIUM LEVEL 7.7 MG/DL (8.8-10.2); CHOLESTEROL RISK RATIO 2.785 (<5); CREATININE FOR GFR 1.44 MG/DL (0.55-1.30); GLOMERULAR FILTRATION RATE 38.3 (>39); POTASSIUM SERUM 4.8 MEQ/L (3.5-5.1); VANCOMYCIN LEVEL TROUGH 16.6 UG/ML (10.0-20.0)
[2020-04-14 04:00] VITALS: BP 115/56
[2020-04-14] MEDS: VANCOMYCIN HCL 1,000 MG, VIAL MATE ADAPTER 1 EACH in D5W 250 ML IV SCH ×2 (04:47→17:40)
[2020-04-14] MEDS: NS 0.45% 1,000 ML IV SCH ×2 (04:48→12:52)
[2020-04-14] MEDS ORDERED: HumaLOG INSULIN (NovoLOG) PER UNIT SC SCH (07:30)
[2020-04-14 08:00] VITALS: BP 127/67
[2020-04-14] MEDS: CETIRIZINE (ZyrTEC) 10 MG TAB PO SCH (08:14)
[2020-04-14] MEDS: APIXABAN 5 MG TAB (ELIQUIS) PO SCH ×2 (08:14→19:28)
[2020-04-14] MEDS: LACTOBACILLUS ACIDOPHILUS CAP (BACID) PO SCH ×4 (08:15→19:28)
[2020-04-14] MEDS: ASCORBIC ACID 500 MG TAB PO SCH (08:15)
[2020-04-14] MEDS: MAGNESIUM OXIDE 400 MG TAB (MAG-OX) PO SCH (08:15)
[2020-04-14 16:00] VITALS: BP 137/65
[2020-04-14 17:40] VITALS: BP 137/65
[2020-04-14] MEDS: VERAPAMIL 120 MG SR TAB PO SCH (17:40)
--- NOTE | 2020-04-14 18:35 | IPNPDOC ---
Date Seen The patient was seen on 04/14/20. Progress Note SUBJECTIVE: No acute complaints. Cellulitis appears improved; however, inflammatory markers worsened. Denies n/v, fevers, abdominal pain, chills, shortness of breath or chest pain. OBJECTIVE: VITAL SIGNS: Please see below PHYSICAL EXAMINATION: - General: Lying in bed, Speaking in full sentences, AAOx3 - HEENT: NC, AT, PERRLA - CVS: +S1S2, - Murmurs / rubs / gallops - Lungs: Fair air entry bilaterally, No appreciable wheezing / rales / rhonchi - Abdomen: Soft, Non-distended, Non-tender - Extremities: Trace LE edema, No calf tenderness - Neuro: No focal motor or sensory deficit - Skin: Decreased LLE warmth, erythema, tenderness and small scabbed area anterior surface/bullard LABORATORY: Please see below MICROBIOLOGY: Blood cultures x 2 sets: NG GI panel: neg IMAGING: Duplex US 04/12: No DVT of the left lower extremity. ASSESSMENT: 69 y/o F with PMH of DM, HTN, atrial fibrillation treated for acute kidney injury and cellulitis of LLE PLAN: 1. Cellulitis of LLE - Failed outpatient oral antibiotics with clindamycin; we will not continue with clindamycin that the ER has provided; Hx of Cellulitis of LLE (2/2 Cat bite, 03/12) - WBC wnl, leg appears much improved. - Micro: above - C/w Zosyn and Vancomycin (Day2) 2. Acute kidney injury likely 2/2 to medications vs. dehydration - Baseline creatinine of approximately 1 - Cr improved from admission to 1.4 - Continue to hold diuretics therapy / Nephrotoxic medications - C/w 100 cc/hr, 1/2 0.45 NSS continuous - F/u AM labs 3. Hyperglycemia likely 2/2 to acute infection -BS stable, hbA1c <6 -No known dM type II, last HbA1c 01/18/20 was <6. -F/u repeat HbA1c, lipid panel -D/c ISS, AC/HS blood sugar checks. C/w consistent carb diet 4. A. fib - c/w Rate control with Verapamil - c/w full anticoagulation with Eliquis 5. HTN - BP well controlled - Hold Lisinopril for now (re: FREDDIE) 6. Reactive airway disease - c/w Inhaled therapy as ordered 7. Psoriasis - c/w Triamcinolone cream 8. Vitamin D deficiency - Will continue supplementation as outpatient 9. DVT prophylaxis - Will c/w full anticoagulation with Eliquis DISPOSITION: Currently inpatient status. Improving slowly. Plan is home when m edically improved. VS, I&O, 24H, Fishbone Vital Signs/I&O Vital Signs Date Time Temp Pulse Resp B/P (MAP) Pulse Ox O2 Delivery O2 Flow Rate FiO2 04/14/20 17:40 79 137/65 04/14/20 16:00 97.7 18 94 Room Air I&O- Last 24 Hours up to 6 AM 04/14/20 05:59 Intake Total 3640 ml Output Total 2100 ml Balance 1540 ml Laboratory Data 24H LABS Laboratory Tests 2 04/13/20 19:45: Bedside Glucose (Misc Panel) 152H 04/13/20 19:50: Urine Color YELLOW, Urine Appearance CLEAR, Urine pH 5.0, Urine Specific [place] 1.015, Urine Protein NEGATIVE, Urine Glucose (UA) NEGATIVE, Urine Ketones NEGATIVE, Urine Blood NEGATIVE, Urine Nitrite NEGATIVE, Urine Bilirubin NEGATIVE, Urine Urobilinogen 0.2, Urine Leukocyte Esterase NEGATIVE, Urine WBC (Auto) 1, Urine RBC (Auto) 1, Urine Hyaline Casts (Auto) 0, Urine Bacteria (Auto) NEGATIVE, Urine Squamous Epithelial Cells 0, Urine Mucus (Auto) SMALL, Urine Sperm (Auto) 04/14/20 02:58: Immature Granulocyte % (Auto) 0.2, Neutrophils (%) (Auto) 65.3, Lymphocytes (%) (Auto) 18.3L, Monocytes (%) (Auto) 13.9H, Eosinophils (%) (Auto) 2.0, Basophils (%) (Auto) 0.3, Neutrophils # (Auto) 4.3, Lymphocytes # (Auto) 1.2L, Monocytes # (Auto) 0.9H, Eosinophils # (Auto) 0.1, Basophils # (Auto) 0.0, Nucleated Red Blood Cells % (auto) 0.0, Erythrocyte Sedimentation Rate 107H, Anion Gap 4L, Glomerular Filtration Rate 38.3L, Calcium Level 7.7L, C-Reactive Protein, Quantitative 8.21H, Triglycerides Level 104, Total Cholesterol 117, LDL Cholesterol 54, Non-HDL Cholesterol (LDL + VLDL) 75, Total HDL Cholesterol 42, Cholesterol/HDL Ratio 2.785, Vancomycin Level Trough 16.6 CBC/BMP Laboratory Tests 04/14/20 02:58 Microbiology Microbiology 04/13/20 Gastrointestinal Tract Panel (PCR) - Final, Complete 04/12/20 Blood Culture - Preliminary, Resulted No growth after 24 hours . All specim... 04/12/20 Blood Culture - Preliminary, Resulted No growth after 24 hours . All specim... Current Medications Current Medications Medications (Trade) Dose Ordered Sig/Yamil Route PRN Reason Start Time Stop Time Status Last Admin Dose Admin Acetaminophen (Tylenol Tab) 650 mg Q4H PRN PO PAIN OR FEVER 04/12/20 19:45 04/13/20 01:19 Albuterol Sulfate (Proventil Neb) 2.5 mg Q2HP PRN INH SOB/WHEEZING 04/12/20 21:00 Apixaban (Eliquis) 5 mg BID PO 04/12/20 21:00 04/14/20 08:14 Ascorbic Acid (Vitamin C) 500 mg DAILY PO 04/13/20 09:00 04/14/20 08:15 Cetirizine HCl (ZyrTEC) 10 mg DAILY PO 04/13/20 09:00 04/14/20 08:14 Dextrose (Dextrose 50%) 25 ml ASDIRECTED PRN IV SEE LABEL COMMENTS 04/13/20 17:45 04/14/20 10:18 DC Fluticasone Propionate (Flonase 0.05% Nasal [place]) 2 spray DAILY PRN NARES CONGESTION 04/12/20 21:00 Glucagon (Glucagon) 1 mg ASDIRECTED PRN SC SEE LABEL COMMENTS 04/13/20 17:45 04/14/20 10:18 DC Glucose (Glucose) 16 GM ASDIRECTED PRN PO SEE LABEL COMMENTS 04/13/20 17:45 04/14/20 10:18 DC Home Med (Med Rec Complete!) ASDIRECTED XX 04/12/20 19:30 04/12/20 19:21 DC Insulin Human Lispro (HumaLOG INSULIN) SEE PROTOCOL TABLE AC SC 04/14/20 07:30 04/14/20 10:18 DC 04/14/20 08:14 Insulin Human Lispro (HumaLOG INSULIN) SEE PROTOCOL TABLE QHS SC 04/13/20 21:00 04/14/20 10:18 DC Lactobacillus Acidophilus (Bacid) 1 ea WMHS PO 04/12/20 21:00 04/14/20 17:40 Magnesium Oxide (Mag-Ox) 400 mg DAILY PO 04/13/20 09:00 04/14/20 08:15 Piperacillin Sod/ Tazobactam Sod 3.375 gm/Dextrose 50 ml @ 50 mls/hr Q6H IV 04/12/20 21:00 04/13/20 01:00 DC Piperacillin Sod/ Tazobactam Sod 3.375 gm/Dextrose 50 ml @ 50 mls/hr Q6H IV 04/13/20 02:00 04/14/20 12:52 Sodium Chloride 1,000 ml @ 80 mls/hr [id number] IV 04/12/20 19:45 04/13/20 08:06 DC 04/13/20 01:18 Sodium Chloride 1,000 ml @ 100 mls/hr Q10H IV 04/13/20 08:15 04/14/20 12:52 Triamcinolone Acetonide (Kenalog 0.1% Cream) APPLY TO PSORIASIS AREAS 2XW PRN TOP PSORIASIS 04/12/20 21:00 Vancomycin HCl 750 mg/IV Miscellaneous Supplies 1 each/ Dextrose 275 ml @ 275 mls/hr Q12H IV 04/12/20 19:45 04/13/20 01:33 DC Vancomycin HCl 1000 mg/IV Miscellaneous Supplies 1 each/ Dextrose 270 ml @ 270 mls/hr Q12H IV 04/13/20 04:00 04/14/20 17:40 Verapamil HCl (Isoptin-Sr, Calan Sr) 240 mg DAILY@1800 PO 04/12/20 18:00 04/14/20 17:40 Allergies Coded Allergies: cephalexin (Verified Allergy, Intermediate, SOB, THRUSH, 07/23/19) aspirin (Verified Allergy, Mild, WHEEZING, 07/23/19) naproxen (Verified Allergy, Mild, WHEEZING, 07/23/19) Jodi Sheets MD Apr 14, 2020 18:35
[2020-04-14 19:30] VITALS: BP 120/46
[2020-04-15 02:00] VITALS: BP 136/75
[2020-04-15] MEDS: PIPERACILLIN/TAZOBACTAM SOD 3.375 GM in D5W MINI-BAG PLUS 50 ML IV SCH ×2 (02:04→09:09)
[2020-04-15] MEDS: VANCOMYCIN HCL 1,000 MG, VIAL MATE ADAPTER 1 EACH in D5W 250 ML IV SCH (04:44)
[2020-04-15 06:07] LABS: HEMOGLOBIN A1c 6.2 %
[2020-04-15 06:17] LABS: BASO % 0.6 % (0.0-1.0); EOS # 0.2 10^3/uL (0.0-0.5); EOS % 2.8 % (0.0-3.0); HEMATOCRIT 28.7 % (36.0-47.0); HEMOGLOBIN 9.2 g/dl (12.0-15.5); LYMPH # 1.4 10^3/uL (1.5-5.0); LYMPH % 25.2 % (24.0-44.0); MEAN CORPUSCULAR HGB CONC 32.1 g/dl (32.0-36.5); MEAN CORPUSCULAR VOLUME 102.9 fl (80.0-96.0); MONO # 0.6 10^3/uL (0.0-0.8); MONO % 11.8 % (0.0-5.0); NEUTROPHILS # 3.2 10^3/uL (1.5-8.5); NEUTROPHILS % 59.2 % (36.0-66.0); PLATELET COUNT, AUTOMATED 164 10^3/uL (150-450); RED BLOOD COUNT 2.79 10^6/uL (4.00-5.40); WHITE BLOOD COUNT 5.4 10^3/uL (4.0-10.0)
[2020-04-15] MEDS: NS 0.45% 1,000 ML IV SCH ×2 (06:23→10:15)
[2020-04-15 06:29] LABS: CREATININE FOR GFR 1.05 MG/DL (0.55-1.30); GLOMERULAR FILTRATION RATE 55.2 (>39); POTASSIUM SERUM 4.7 MEQ/L (3.5-5.1)
[2020-04-15 07:36] VITALS: BP 108/53
[2020-04-15] MEDS ORDERED: AMOX875T2 PO (08:51)
[2020-04-15] MEDS: ASCORBIC ACID 500 MG TAB PO SCH (09:10)
[2020-04-15] MEDS: CETIRIZINE (ZyrTEC) 10 MG TAB PO SCH (09:10)
[2020-04-15] MEDS: MAGNESIUM OXIDE 400 MG TAB (MAG-OX) PO SCH (09:10)
[2020-04-15] MEDS: APIXABAN 5 MG TAB (ELIQUIS) PO SCH (09:10)
[2020-04-15] MEDS: LACTOBACILLUS ACIDOPHILUS CAP (BACID) PO SCH ×2 (09:10→12:36)
--- NOTE | 2020-04-15 23:38 | DS.PDOC ---
Discharge Summary General Date of Admission Apr 12, 2020 at 19:41 Date of Discharge 04/15/20 Discharge Summary Patient is a 69-year-old female with a PMHx of A. fib (on Eliquis), HTn, Hx of Cellulitis of LLE (2/ Cat bite, 03/12) who presented to the hospital with again complaints of worsening left leg, warmth, redness and tenderness. Patient was recently at [facility] on March 30 and April 02 for lower extremity cellulitis as well as swelling. Patient was prescribed clindamycin by mouth, which she has been taking regularly. Despite taking this medication patient had failed to notice any improvement. Patient has presented with worsening redness, warmth and an area of drainage. Patient describes the drainage is mostly clear but sometimes pink tinged. Patient denies any fevers bu t has experienced chills. Patient noted that her prior cellulitis was associated with a cat scratch. . She also noted that around that time, she had dropped a fan on her leg, which is now the area that is draining. Patient reports some nausea without vomiting. Denies chest pain, shortness of breath, palpitations, abdominal pain or constipation. She does report diarrhea occurred today. 3-4 episodes of loose stool. Denies any urinary discomfort. Patient is unaware of any changes in her weight or her appetite. Home Medications Scheduled Apixaban (Eliquis) 5 Mg Tablet, 5 MG PO BID, (Reported) Ascorbic Acid (Vitamin C) 500 Mg Capsule, 500 MG PO DAILY, (Reported) Cullen/D3/Mag11/Zinc/Neonatal Doctor/Damon/Bor (Caltrate 600+D Plus Tablet) 1 Each Tablet, 1 TAB PO BID, (Reported) Cetirizine HCl (Cetirizine HCl) 10 Mg Tab, 10 MG PO DAILY, (Reported) Ergocalciferol (Vitamin D2) (Vitamin D2) 50,000 Units Cap, 50,000 UNIT PO QMONTH, (Reported) Furosemide (Furosemide) 40 Mg Tab, 40 MG PO DAILY, (Reported) Lisinopril (Lisinopril) 40 Mg Tab, 40 MG PO DAILY, (Reported) Magnesium Oxide (Magnesium Oxide) 400 Mg Tablet, 400 MG PO DAILY, (Reported) Verapamil HCl (Verapamil ER) 240 Mg Tabcr, 240 MG PO QPM, (Reported) WITH SUPPER Scheduled PRN Acetaminophen (Acetaminophen 8 Hour) 650 Mg Tablet.er, 650 MG PO Q8H PRN for PAIN, (Reported) Albuterol Sulfate (Proair Hfa) 8.5 Gm Hfa.aer.ad, 2 PUFF INH Q4H PRN for wheezing, (Reported) Ciclopirox (Ciclopirox) 6.6 Ml Solution, 1 APLCT TOP DAILY PRN for TOENAILS, (Reported) apply to affected area(s) Fluticasone Propionate (Flonase Allergy Relief) 9.9 Ml [place].susp, 2 SPRAY NARES DAILY PRN for CONGESTION, (Reported) Furosemide (Furosemide) 40 Mg Tablet, 40 MG PO DAILY PRN for EDEMA, (Reported) CAN TAKE ADDITIONAL 40MG PRN Triamcinolone Acet (Triamcinolone Acetonide 0.1% Crm) 80 Gm Cream..g., 1 APLCT TOP 2XW PRN for PSORIASIS, (Reported) Allergies Coded Allergies: cephalexin (Verified Allergy, Intermediate, SOB, THRUSH, 07/23/19) aspirin (Verified Allergy, Mild, WHEEZING, 07/23/19) naproxen (Verified Allergy, Mild, WHEEZING, 07/23/19) Past Medical History Past Medical History Medical History A. 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 GENERAL: HEENT: NECK: CARDIOVASCULAR EXAMINATION: RESPIRATORY EXAMINATION: ABDOMINAL EXAMINATION: EXTREMITIES: SKIN: NEUROLOGICAL EXAMINATION: PSYCHIATRIC EXAMINATION: LABORATORY DATA: Please see below. IMAGING: PROGNOSIS: ACTIVITY: [As tolerated]. DIET: DISCHARGE PLAN: DISPOSITION: 01 Home, Self-Care. DISCHARGE INSTRUCTIONS: 1. . ITEMS TO FOLLOWUP ON ON OUTPATIENT: 1. . DISCHARGE CONDITION: [Stable]. TIME SPENT ON DISCHARGE: Greater than minutes. Vital Signs/I&Os Vital Signs Date Time Temp Pulse Resp B/P (MAP) Pulse Ox O2 Delivery O2 Flow Rate FiO2 04/15/20 07:36 96.6 74 18 108/53 (71) 97 Room Air I&O- Last 24 Hours up to 6 AM 04/15/20 05:59 Intake Total 720 ml Output Total 2300 ml Balance -1580 ml Laboratory Data Labs 24H Laboratory Tests 2 04/15/20 05:53: Immature Granulocyte % (Auto) 0.4, Neutrophils (%) (Auto) 59.2, Lymphocytes (%) (Auto) 25.2, Monocytes (%) (Auto) 11.8H, Eosinophils (%) (Auto) 2.8, Basophils (%) (Auto) 0.6, Neutrophils # (Auto) 3.2, Lymphocytes # (Auto) 1.4L, Monocytes # (Auto) 0.6, Eosinophils # (Auto) 0.2, Basophils # (Auto) 0.0, Nucleated Red Blood Cells % (auto) 0.0, Anion Gap 9, Glomerular Filtration Rate 55.2, Calcium Level 8.0L CBC/BMP Laboratory Tests 04/15/20 05:53 Microbiology Microbiology 04/13/20 Gastrointestinal Tract Panel (PCR) - Final, Complete 04/12/20 Blood Culture - Preliminary, Resulted No Growth after 72 hours. All specime... 04/12/20 Blood Culture - Preliminary, Resulted No Growth after 72 hours. All specime... Discharge Medications Scheduled Amoxicillin/Potassium Clav (Amox-Clav 875-125 mg Tablet) 1 Each Tablet, 875 MG PO BID Apixaban (Eliquis) 5 Mg Tablet, 5 MG PO BID, (Reported) Ascorbic Acid (Vitamin C) 500 Mg Capsule, 500 MG PO DAILY, (Reported) Cullen/D3/Mag11/Zinc/Neonatal Doctor/Damon/Bor (Caltrate 600+D Plus Tablet) 1 Each Tablet, 1 TAB PO BID, (Reported) Cetirizine HCl (Cetirizine HCl) 10 Mg Tab, 10 MG PO DAILY, (Reported) Ergocalciferol (Vitamin D2) (Vitamin D2) 50,000 Units Cap, 50,000 UNIT PO QMONTH, (Reported) Furosemide (Furosemide) 40 Mg Tab, 40 MG PO DAILY, (Reported) Lisinopril (Lisinopril) 40 Mg Tab, 40 MG PO DAILY, (Reported) Magnesium Oxide (Magnesium Oxide) 400 Mg Tablet, 400 MG PO DAILY, (Reported) Verapamil HCl (Verapamil ER) 240 Mg Tabcr, 240 MG PO QPM, (Reported) WITH SUPPER Scheduled PRN Acetaminophen (Acetaminophen 8 Hour) 650 Mg Tablet.er, 650 MG PO Q8H PRN for PAIN, (Reported) Albuterol Sulfate (Proair Hfa) 8.5 Gm Hfa.aer.ad, 2 PUFF INH Q4H PRN for wheezing, (Reported) Ciclopirox (Ciclopirox) 6.6 Ml Solution, 1 APLCT TOP DAILY PRN for TOENAILS, (Reported) apply to affected area(s) Fluticasone Propionate (Flonase Allergy Relief) 9.9 Ml [place].susp, 2 SPRAY NARES DAILY PRN for CONGESTION, (Reported) Furosemide (Furosemide) 40 Mg Tablet, 40 MG PO DAILY PRN for EDEMA, (Reported) CAN TAKE ADDITIONAL 40MG PRN Triamcinolone Acet (Triamcinolone Acetonide 0.1% Crm) 80 Gm Cream..g., 1 APLCT TOP 2XW PRN for PSORIASIS, (Reported) Allergies Coded Allergies: cephalexin (Verified Allergy, Intermediate, SOB, THRUSH, 07/23/19) aspirin (Verified Allergy, Mild, WHEEZING, 07/23/19) naproxen (Verified Allergy, Mild, WHEEZING, 07/23/19) Jodi Sheets MD Apr 15, 2020 23:38
--- NOTE | 2020-04-16 20:28 | DS.PDOC ---
Discharge Summary General Date of Admission Apr 12, 2020 at 19:41 Date of Discharge 04/15/20 Attending Physician: Jodi Sheets MD Discharge Summary HISTORY OF PRESENT ILLNESS: Patient is a 69-year-old female with a PMHx of A. fib (on Eliquis), HTn, Hx of Cellulitis of LLE (2/2 Cat bite, 03/12) who presented to the hospital with again complaints of worsening left leg, warmth, redness and tenderness. Patient was recently at [facility] on March 30 and April 02 for lower extremity cellulitis as well as swelling. Patient was prescribed clindamycin by mouth, which she has been taking regularly. Despite taking this medication apolonia winkler had failed to notice any improvement. Patient has presented with worsening redness, warmth and an area of drainage. Patient describes the drainage is mostly clear but sometimes pink tinged. Patient denies any fevers but has experienced chills. Patient noted that her prior cellulitis was associated with a cat scratch. . She also noted that around that time, she had dropped a fan on her leg, which is now the area that is draining. Patient reports some nausea without vomiting. Denies chest pain, shortness of breath, palpitations, abdominal pain or constipation. She does report diarrhea occurred today. 3-4 episodes of loose stool. Denies any urinary discomfort. Patient is unaware of any changes in her weight or her appetite. HOSPITAL COURSE: Cellulitis of LLE was treated with zosyn and vancomycin while inpatient. WBC normalized, erythema and swelling significantly decreased. Hx of failed outpatient oral antibiotics with clindamycin; Hx of Cellulitis of LLE (2/2 Cat bite, 03/12) so on discharge wanted to cover with abx that would cover cat bite- augmentin. FREDDIE improved with IVFs, hyperglycemia likely 2/2 to infection. Other chronic issues remained stable. On 04/15/20, patient was discharged with 4 additional days (to complete total of 7 days treatment) of augmentin and advised to f/u with PCP within 1-2 weeks after discharge. She denied fevers, chills, increased swelling, n/v/d, shortness of breath prior to discharge. PMH: A. 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 DISCHARGE MEDICATIONS: Please see below. PHYSICAL EXAMINATION: -VS: please see below - General: Lying in bed, Speaking in full sentences, AAOx3 - HEENT: NC, AT, PERRLA - CVS: +S1S2, - Murmurs / rubs / gallops - Lungs: Fair air entry bilaterally, No appreciable wheezing / rales / rhonchi - Abdomen: Soft, Non-distended, Non-tender - Extremities: Trace LE edema, No calf tenderness - Neuro: No focal motor or sensory deficit - Skin: Decreased LLE warmth, erythema, tenderness and small scabbed area anterior surface/bullard LABORATORY: Please see below MICROBIOLOGY: Blood cultures x 2 sets: NG GI panel: neg IMAGING: Duplex US 04/12: No DVT of the left lower extremity. ASSESSMENT: 69 y/o F with PMH of DM, HTN, atrial fibrillation treated for acute kidney injury and cellulitis of LLE PLAN: 1. Cellulitis of LLE - Much improved, WBC wnl, afebrile - Failed outpatient oral antibiotics with clindamycin; Hx of Cellulitis of LLE (2/2 Cat bite, 03/12) - Micro: above - Treated here with Zosyn and Vancomycin - Discharging with augmentin for 4 days (total of 7 days treatment) 2. Acute kidney injury likely 2/2 to medications vs. dehydration- resolved. - Baseline creatinine of approximately 1 - Cr wnl - resumed home medications. 3. Hyperglycemia likely 2/2 to acute infection -BS now stable, hbA1c <6 -No known dM type II, last HbA1c wnl 4. A. fib - c/w Rate control with Verapamil - c/w full anticoagulation with Eliquis 5. HTN - BP well controlled - C/w home meds 6. Reactive airway disease - c/w home meds 7. Psoriasis - c/w Triamcinolone cream 8. Vitamin D deficiency - Continue supplementation as outpatient DISPOSITION: Discharge home with f/u with PCP within 1-2 weeks after discharge. TIME SPENT ON DISCHARGE: Greater than 30 minutes. Vital Signs/I&Os Vital Signs Date Time Temp Pulse Resp B/P (MAP) Pulse Ox O2 Delivery O2 Flow Rate FiO2 04/15/20 07:36 96.6 74 18 108/53 (71) 97 Room Air I&O- Last 24 Hours up to 6 AM 04/16/20 05:59 Intake Total 120 ml Output Total 1200 ml Balance -1080 ml Microbiology Microbiology 04/13/20 Gastrointestinal Tract Panel (PCR) - Final, Complete 04/12/20 Blood Culture - Preliminary, Resulted No Growth after 72 hours. All specime... 04/12/20 Blood Culture - Preliminary, Resulted No Growth after 72 hours. All specime... Discharge Medications Scheduled Amoxicillin/Potassium Clav (Amox-Clav 875-125 mg Tablet) 1 Each Tablet, 875 MG PO BID Apixaban (Eliquis) 5 Mg Tablet, 5 MG PO BID, (Reported) Ascorbic Acid (Vitamin C) 500 Mg Capsule, 500 MG PO DAILY, (Reported) Cullen/D3/Mag11/Zinc/Breaker Hand/Damon/Bor (Caltrate 600+D Plus Tablet) 1 Each Tablet, 1 TAB PO BID, (Reported) Cetirizine HCl (Cetirizine HCl) 10 Mg Tab, 10 MG PO DAILY, (Reported) Ergocalciferol (Vitamin D2) (Vitamin D2) 50,000 Units Cap, 50,000 UNIT PO QMONTH, (Reported) Furosemide (Furosemide) 40 Mg Tab, 40 MG PO DAILY, (Reported) Lisinopril (Lisinopril) 40 Mg Tab, 40 MG PO DAILY, (Reported) Magnesium Oxide (Magnesium Oxide) 400 Mg Tablet, 400 MG PO DAILY, (Reported) Verapamil HCl (Verapamil ER) 240 Mg Tabcr, 240 MG PO QPM, (Reported) WITH SUPPER Scheduled PRN Acetaminophen (Acetaminophen 8 Hour) 650 Mg Tablet.er, 650 MG PO Q8H PRN for PAIN, (Reported) Albuterol Sulfate (Proair Hfa) 8.5 Gm Hfa.aer.ad, 2 PUFF INH Q4H PRN for wheezing, (Reported) Ciclopirox (Ciclopirox) 6.6 Ml Solution, 1 APLCT TOP DAILY PRN for TOENAILS, (Reported) apply to affected area(s) Fluticasone Propionate (Flonase Allergy Relief) 9.9 Ml [place].susp, 2 SPRAY NARES DAILY PRN for CONGESTION, (Reported) Furosemide (Furosemide) 40 Mg Tablet, 40 MG PO DAILY PRN for EDEMA, (Reported) CAN TAKE ADDITIONAL 40MG PRN Triamcinolone Acet (Triamcinolone Acetonide 0.1% Crm) 80 Gm Cream..g., 1 APLCT TOP 2XW PRN for PSORIASIS, (Reported) Allergies Coded Allergies: cephalexin (Verified Allergy, Intermediate, SOB, THRUSH, 07/23/19) aspirin (Verified Allergy, Mild, WHEEZING, 07/23/19) naproxen (Verified Allergy, Mild, WHEEZING, 07/23/19) Jodi Sheets MD Apr 16, 2020 20:28
== END 2020-04-15 13:33 | disposition home or self-care (01) | DRG 383 ==
LOC: M ED 15:00 → M ED INP 19:41 → ENRESERV 04-13 00:12 → M PCU 04-13 00:39
PROVIDERS: ADMIT Internal Medicine; ATTEND Internal Medicine
DX: L03.116 Cellulitis of left lower limb (principal); N17.9 Acute kidney failure, unspecified; E87.5 Hyperkalemia; I48.91 Unspecified atrial fibrillation; I10 Essential (primary) hypertension; J45.909 Unspecified asthma, uncomplicated; L40.9 Psoriasis, unspecified; E55.9 Vitamin D deficiency, unspecified; R73.9 Hyperglycemia, unspecified; Z79.01 Long term (current) use of anticoagulants; Z79.899 Other long term (current) drug therapy; Z88.1 Allergy status to other antibiotic agents; Z88.6 Allergy status to analgesic agent

== ENCOUNTER 2020-04-28 18:29 | Inpatient (IN) | payer BC, MEDICARE ==
[~2020-04-28 18:29] MED LIST changes: +CICL8SOL3 TOP; +ELIQ5TAB PO; +QC A650T3 PO; +TRIA1CR80 TOP
[2020-04-28] MEDS ORDERED: CLINDAMYCIN 900 MG/50 ML PREMIX BAG ONE (20:01)
[2020-04-28] MEDS ORDERED: CLINDAMYCIN 900 MG/50 ML PREMIX BAG As Ordered ONE (20:01)
[2020-04-29] MEDS ORDERED: CEFTAROLINE FOSAMIL 600 MG VIAL (TEFLARO) (J0712 PER 10MG) As Ordered ONE (15:33)
[2020-04-29] MEDS ORDERED: APIXABAN 5 MG TAB (ELIQUIS) ONE (15:33)
[2020-04-29] MEDS ORDERED: CEFTAROLINE FOSAMIL 600 MG VIAL (TEFLARO) (J0712 PER 10MG) ONE (15:33)
[2020-04-29] MEDS ORDERED: APIXABAN 5 MG TAB (ELIQUIS) As Ordered ONE (20:24)
[2020-04-30] MEDS ORDERED: CEFTAROLINE FOSAMIL 600 MG VIAL (TEFLARO) (J0712 PER 10MG) As Ordered ONE ×3 (01:05→23:57)
[2020-04-30] MEDS ORDERED: APIXABAN 5 MG TAB (ELIQUIS) As Ordered ONE ×2 (09:45→20:32)
[2020-04-30] MEDS ORDERED: VERAPAMIL 120 MG SR TAB ONE (13:00)
[2020-05-01] MEDS ORDERED: APIXABAN 5 MG TAB (ELIQUIS) As Ordered ONE (08:22)
[2020-05-26 12:57] LABS: BASO % 0.2 % (0.0-1.0); EOS % 0.1 % (0.0-3.0); HEMATOCRIT 35.4 % (36.0-47.0); HEMOGLOBIN 11.2 g/dl (12.0-15.5); LYMPH # 0.5 10^3/uL (1.5-5.0); LYMPH % 3.4 % (24.0-44.0); MEAN CORPUSCULAR HGB CONC 31.6 g/dl (32.0-36.5); MEAN CORPUSCULAR VOLUME 104.4 fl (80.0-96.0); MONO # 0.7 10^3/uL (0.0-0.8); MONO % 4.6 % (0.0-5.0); NEUTROPHILS # 14.4 10^3/uL (1.5-8.5); PLATELET COUNT, AUTOMATED 220 10^3/uL (150-450); RED BLOOD COUNT 3.39 10^6/uL (4.00-5.40); WHITE BLOOD COUNT 15.8 10^3/uL (4.0-10.0)
[2020-05-26 12:58] LABS: ERYTHROCYTE SEDIMENTATION RATE 75 mm/hr (0-30)
== END 2020-05-01 14:00 | disposition home or self-care (01) | DRG 720 ==
LOC: M ED 18:29 → M MS5PR 04-29 01:10
PROVIDERS: ADMIT Internal Medicine; ATTEND Internal Medicine
DX: A41.9 Sepsis, unspecified organism (principal); E87.2 Acidosis; E87.5 Hyperkalemia; L03.116 Cellulitis of left lower limb; I48.20 Chronic atrial fibrillation, unspecified; I10 Essential (primary) hypertension; J45.909 Unspecified asthma, uncomplicated; E66.9 Obesity, unspecified; Z79.899 Other long term (current) drug therapy; Z88.6 Allergy status to analgesic agent; Z88.8 Allergy status to other drugs, medicaments and biological substances

== ENCOUNTER → 2020-05-27 | Outpatient (CLI) | payer BC ==
--- NOTE | 2020-06-21 11:22 | REP ---
BILATERAL LOWER EXTREMITY ARTERIAL ULTRASOUND CLINICAL: Claudication. TECHNIQUE: Real-time proter scale and color Doppler evaluation using linear high frequency transducer. FINDINGS: Ultrasound examination demonstrates significant atherosclerotic calcified changes to the bilateral lower extremity arterial vasculature including noncompressibility. Ankle brachial indices (KRISTOPHER) could not be obtained. The vessels demonstrate triphasic and biphasic wave patterns with normal systolic velocities and no obvious evidence for stenosis or occlusion. IMPRESSION: Extensive partially calcified atherosclerotic changes without evidence for stenosis or occlusion. MTDD
== END ==
LOC: M RAD 13:24
PROVIDERS: ATTEND Physician Assistant
DX: I70.213 Atherosclerosis of native arteries of extremities with intermittent claudication, bilateral legs (principal)

== ENCOUNTER → 2020-06-02 | Outpatient (CLI) | payer BC, MEDICARE | LOC: M LABSMTC 11:43 | PROVIDERS: ATTEND Anesthesiology | DX: Z20.828 Contact with and (suspected) exposure to other viral communicable diseases (principal) | CPT/HCPCS: C9803; U0003 ==

== ENCOUNTER → 2020-06-22 | Outpatient (CLI) | payer BC, MEDICARE | LOC: M PAIN 13:25 | PROVIDERS: ATTEND Nurse Practitioner Family | DX: M47.817 Spondylosis without myelopathy or radiculopathy, lumbosacral region (principal) ==

== ENCOUNTER → 2020-07-14 | Outpatient (CLI) | payer BC, MEDICARE | LOC: M LABSMTC 11:13 | PROVIDERS: ATTEND Anesthesiology | DX: Z20.828 Contact with and (suspected) exposure to other viral communicable diseases (principal) | CPT/HCPCS: C9803; U0003 ==

== ENCOUNTER → 2020-07-19 | Outpatient (CLI) | payer MEDICARE, BC ==
[~2020-07-19] MED LIST changes: +BUPIVACAINE HCL 0.25% 30ML VIAL As Ordered ONE; +ISOVUE-M 300 61% 15ML VIAL As Ordered ONE; +LIDOCAINE 1% SDV 30ML VIAL As Ordered ONE
--- NOTE | 2020-07-19 11:26 | REP ---
INDICATION: LEFT LUMBAR DIAGNOSTIC FACET BLOCK L4=5 L5-S1. Pain COMPARISON: 03/07/2020 TECHNIQUE: Several C-arm views lower lumbar spine performed during left lumbar facet joint injections. FINDINGS: Several needles are seen along the left lower lumbar facet joints. A small amount of contrast was injected. IMPRESSION: 42 seconds fluoroscopy time utilized. <Electronically signed by Alfie Arnold > 07/19/20 [id number]
--- NOTE | 2020-07-25 16:31 | ECWPNPC ---
PATIENT NAME: ROBIN NGUYỄN : 1950 GENDER: FEMALE VISIT DATE: 07/19/2020 DISCHARGE DATE: 07/19/20 1110 VISIT LOCKED DATE TIME: PHYSICIAN: HORACIO SMITH MD PHYSICIAN PAGER NO: ACTIVE RESOURCE: HORACIO SMITH MD REASON FOR APPOINTMENT 1. LEFT DIAGNOSTIC LUMBAR FACET BLOCK L4/L5, L5/S1 HISTORY OF PRESENT ILLNESS GENERAL: -. FALL RISK SCREENING: SCREENING :NO FALLS REPORTED IN THE LAST YEAR PAIN SCREENING: PATIENT HAS A COMPLAINT OF ACUTE OR CHRONIC PAIN :YES LOCATION OF PAIN:LOW BACK INTENSITY OF PAIN (SCALE OF 1 TO 10):8 WHAT DOES YOUR PAIN FEEL LIKE:ACHING, SHARP DURATION:ONLY WITH SPECIFIC ACTIVITIES PAIN IS INCREASED BY:ACTIVITIES PAIN IS DECREASED BY:USE OF PAIN MEDICATIONS, OTHERS TREATMENT/MEDICATIONS USED TO MANAGE PAIN:OTC PAIN RELIEVERS LEVEL OF RELIEF FROM PAIN TREATMENTS IN THE PAST:50% PAIN HAS INTERFERED WITH THE FOLLOWING:WALKING ABILITY, HOUSEWORK NURSING NOTE: -. PAIN CENTER INTAKE QUESTIONS: DO YOU HAVE A HISTORY OF MRSA? :NO DO YOU TAKE A BLOOD THINNERS? :YES ELIQUIS LAST DOSE 07/15/20 DO YOU HAVE ANY BLEEDING DISORDERS? :NO ANY NEW NUMBNESS OR WEAKNESS IN YOUR LEGS OR ARMS? :NO ANY PACEMAKER,DEFIBRILLATOR, OR DORSAL COLUMN STIMULATOR? :NO DO YOU HAVE ANY RASHES OR OPEN SORES? :YES PSORIASIS ARE YOU ALLERGIC TO IV DYE? :NO ARE YOU DIABETIC? :NO ANY NEW PROBLEMS WITH YOUR MEDICATIONS? :NO HAVE YOU RECEIVED A VACCINE IN THE PAST 30 DAYS? :NO DO YOU PLAN TO RECEIVE A VACCINE IN THE NEXT 21 DAYS? :YES IF SO WHAT VACCINE AND WHEN? MAYBE FLU VACCINE DO YOU TAKE ANY IMMUNOSUPPRESSIVE MEDICATIONS? :NO ANY HISTORY OF SEIZURES? :YES AFTER 38 YEARS AGO ANY HISTORY OF CARDIAC ISSUES OR EVENTS? :YES HX OF A-FIB ON ELIQUIS DO YOU HAVE SLEEP APNEA? :NO ANY RECENT HEAD INJURY? :NO DO YOU HAVE ANY NEW INFECTIONS? :NO IS THERE A CHANCE YOU COULD BE ? :NO ARE YOU BREAST FEEDING? :NO WHEN DID YOU LAST EAT? : -1800 07/18/20 WHEN DID YOU LAST DRINK? : -0700 07/19/20 WHAT DID YOU LAST DRINK? : -WATER NAME OF PERSON DRIVING YOU HOME? : - - ENDER DO YOU HAVE ANY OTHER QUESTIONS OR CONCERNS? : -NO CURRENT MEDICATIONS TAKING ALBUTEROL 90 MCG/ACT AEROSOL SOLUTION 2 PUFFS INHALATION EVERY 4 HOURS NEEDED, NOTES: NONE RECENTLY TAKING FLONASE 50 MCG/ACT SUSPENSION 2 SPRAYS IN EACH NOSTRIL NASALLY DAILY, NOTES: NONE RECENTLY TAKING CETIRIZINE HCL 10 MG TABLET 1 TABLET ORALLY ONCE A DAY, NOTES: 07/18/20899 TAKING CALTRATE 600+D 600-400 MG-UNIT TABLET 1 TABLET ORALLY TWICE A DAY, NOTES: 07/18/20899 TAKING MAGNESIUM 400 MG TABLET 1 TABLETS WITH A MEAL ORALLY ONCE A DAY, NOTES: 07/18/20899 TAKING VITAMIN C 500 MG CAPSULE 1 TABLET ORALLY ONCE A DAY, NOTES: 07/18/20899 TAKING ACETAMINOPHEN EXTRA STRENGTH 500 MG TABLET 2 TABS ORALLY EVERY 8 HOURS NEEDED FOR PAIN, NOTES: 07/18/20899 TAKING DRISDOL 52983 UNIT CAPSULE 1 CAPSULE ORALLY ONCE A MONTH, NOTES: 07/18/20899 TAKING MULTIVITAMIN ADULTS - TABLET 1 TABLET ORALLY DAILY, NOTES: 07/18/20899 TAKING TRIAMCINOLONE ACETONIDE 0.1 % CREAM 1 APPLICATION EXTERNALLY TWO TIMES A WEEK, NOTES: 07/19/20 07 TAKING LISINOPRIL 40 MG TABLET 1 TABLET ORALLY ONCE A DAY, NOTES: 0700 07/19/20 TAKING FUROSEMIDE 40 MG TABLET 1 TABLET ORALLY TWICE A DAY, NOTES: 07/18/20 09 TAKING ELIQUIS 5 MG TABLET 1 TABLET ORALLY TWICE A DAY, NOTES: 07/15/20 TAKING VERAPAMIL HCL 240 MG TABLET EXTENDED RELEASE 1 TABLET EVERY MORNING WITH FOOD ORALLY ONCE A DAY, NOTES: 07/18/20 1800 NOT-TAKING AMOXICILLIN-POT CLAVULANATE 875-125 MG TABLET 1 TABLET ORAL BID NOT-TAKING COUMADIN 5 MG TABLET 1 TAB ORALLY DAILY MEDICATION LIST REVIEWED AND RECONCILED WITH THE PATIENT PAST MEDICAL HISTORY ATRIAL FIBRILLATION HYPERTENSION EDEMA VITAMIN D DEFICIENCY ASTHMA OSTEOARTHRITIS PSORIASIS 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 HISTORY OF SEIZURE X 1 AFTER 1981 ALLERGIES ASPIRIN: SNEEZING AND COUGHING - SIDE EFFECTS KEFLEX: THRUSH AND SWOLLEN TONGUE - SIDE EFFECTS NAPROXEN: WHEEZING, SHORTNESS OF BREATH SURGICAL HISTORY SURGERY ON LEFT GREAT TOE 1977 1981 FAMILY HISTORY FATHER: MOTHER: 58 YRS, DIAGNOSED WITH DIABETES SOCIAL HISTORY GENERAL: TOBACCO USE ARE YOU A:NONSMOKER , NEVER SMOKER LATEX QUESTIONNAIRE LATEX ALLERGY : HAVE YOU EVER DEVELOPED ANY TYPE OF REACTION AFTER HANDLING LATEX PRODUCTS SUCH RUBBER GLOVES, CONDOMS, DIAPHRAGMS, BALLOONS, SOCKS, OR UNDERWEAR?NO LATEX ALLERGY : HAVE YOU EVER DEVELOPED ANY TYPE OF REACTION DURING OR AFTER DENTAL APPOINTMENT, VAGINAL/RECTAL EXAMINATION, SURGICAL PROCEDURE, OR ANY OTHER EXPOSURE?NO LATEX RISK : HAVE YOU EVER HAD ANY DIFFICULTY BREATHING OR HIVES AFTER EATING OR HANDLING ANY FRUITS, OR VEGETABLES; SUCH KIWI, BANANAS, STONE FRUITS, OR CHESTNUTSNO LATEX RISK : DO YOU HAVE A PREVIOUS PERSONAL HISTORY OF MORE THAN NINE SURGERIES, SPINA BIFIDA, OR REPEATED CATHERIZATIONS? NO LATEX RISK : ARE YOU FREQUENTLY EXPOSED TO LATEX PRODUCTS IN YOUR OCCUPATION?NO DATE ASKED : 03/07/2020 LUNG CANCER SCREENING SMOKING STATUS:NON SMOKER BMI CARE GOAL FOLLOW-UP ABOVE NORMAL BMI FOLLOW-UPDIETARY MANAGEMENT EDUCATION, GUIDANCE, AND COUNSELING ALCOHOL SCREENING DID YOU HAVE A DRINK CONTAINING ALCOHOL IN THE PAST YEAR?NO POINTS0 INTERPRETATIONNEGATIVE RECREATIONAL DRUG USE DENIES. CAFFEINE CAFFEINE USE?YES HOW OFTEN AND HOW MUCH? ONE CUP OF COFFEE A DAY SEXUAL HX HAD SEX IN THE LAST 12 MONTHS (VAGINAL, ORAL, OR ANAL)?YES HAVE YOU EVER HAD AN STD?NO HIV / HEP-C SCREENING HIV TEST OFFERED TO PATIENT:YES DATE OFFERED:01/08/2017 TEST ACCEPTED:NO HEP-C TEST OFFERED TO PATIENT:YES DATE OFFERED:01/08/2017 REASON:PATIENT DECLINED TEST ACCEPTED:NO REASON:PATIENT DECLINED MOSQUE [id number] NONE LANGUAGE BENGALI. 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 EXERCISE: WALKS. MARITAL STATUS: . OTHERS AT HOME: SPOUSE. NEW PATIENT PAIN DIARY TODAY'S VISIT 02/17/20 PATIENT DESCRIBES PAIN :ACHING, IT COMES AND GOES FROM 0-10, WHAT LEVEL IS YOUR PAIN TODAY?5 PRECIPITATING FACTORS STANDING, SITTING ALLEVIATING FACTORS LAYIND DOWN IMPACT ON FUNCTION NO PAIN CLINIC PFS, CLERGY, PUBLIC HEALTH REFERRALS WAS THE PROVIDER NOTIFIED OF ANY PERTINENT INFO?YES HAS THE PATIENT BEEN EDUCATED REGARDING HIS/HER PLAN OF CARE?YES HAS THE PATIENT BEEN EDUCATED REGARDING PAIN, THE RISK FOR PAIN, THE IMPORTANCE OF EFFECTIVE PAIN MANAGEMENT, AND THE PAIN ASSESSMENT PROCESS?YES PROCEDURE APPT, IV, PO SEDATION ADVANCE DIRECTIVE ADVANCE DIRECTIVE DISCUSSED WITH PATIENT:YES PATIENT HAS NO ADVANCED DIRECTIVE, INFORMATION ON HCP OFFERED AND DECLINED. HOSPITALIZATION/MAJOR DIAGNOSTIC PROCEDURE SURGERIES ABOVE CELLULITIS IN LEFT LEG 06/2019 CELLULITIS LEFT LEG 02/2020 VITAL SIGNS WT 260 LBS, HT 63.50 IN, BMI 45.33 INDEX, BP 128/60 MM HG, HR 100 /MIN, RR 18 /MIN, TEMP 96.6 F, OXYGEN SAT % 97%, NA INITIALS SC 09:08, REVIEWED BY: MAXIME. EXAMINATION GENERAL EXAMINATION: THE PATIENT IS ALERT, ORIENTED TIMES THREE AND COOPERATIVE. HEART SHOWS REGULAR RHYTHM, NO MURMURS AND NO GALLOPS. LUNGS ARE CLEAR TO AUSCULTATION. 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 RADICULOPATHY, LUMBOSACRAL REGION - M47.817 TREATMENT SPONDYLOSIS WITHOUT MYELOPATHY OR RADICULOPATHY, LUMBAR REGION SMC FACET BLOCK (PAIN)8804626 SPONDYLOSIS WITHOUT MYELOPATHY OR RADICULOPATHY, LUMBOSACRAL REGION SMC FACET BLOCK (PAIN)5223373 OTHERS NOTES: 07/18/20 LARRY GARCIA, LATHER APPRENTICE. PROCEDURES PAIN NURSING RECORD PRE-PROCEDURE IV SITE N/A PROCEDURE IN ROOM 0945, PHYSICIAN IN ROOM 1016, START 1026, FINISH 1034, PHYSICIAN OUT OF ROOM 1040, OUT OF ROOM 1043, STEROID N/A, O2 RA, ECG NORMAL SINUS, PATIENT SHIELDED YES, SAFETY STRAP YES, PREP CHLOROPREP Eddi PEÑALOZA RN, IV INFUSED N/A, DRESSING TEGADERM DR. SMITH LOC: 0953 1. ALERT, ORIENTED, 1000 1. ALERT, ORIENTED, 1015 1. ALERT, ORIENTED, 1030 1. ALERT, ORIENTED, 1039 1. ALERT, ORIENTED, 1048, 1. ALERT, ORIENTED RESP: 0953 1. REGULAR, NO DYSPNEA, 1000 1. REGULAR, NO DYSPNEA, 1015 1. REGULAR, NO DYSPNEA, 1030, 1. REGULAR, NO DYSPNEA 1039 1. REGULAR, NO DYSPNEA, 1048, 1. REGULAR, NO DYSPNEA COLOR: 0953 1. PINK, 1000 1. PINK, 1015 1. PINK, 1030 1. PINK, 1039 1. PINK, 1048, 1. PINK SKIN: 0953 1. WARM, DRY, 1000 1. WARM, DRY, 1015 1. WARM, DRY, 1030 1. WARM, DRY, 1039 1. WARM, DRY, 1048, 1. WARM, DRY POSITION: 0953 1. PRONE, 1000 1. PRONE, 1015 1. PRONE, 1030 1. PRONE, 1039 1. PRONE, 1048, 4. OTHER - SITTING VITALS: 0953 81-16 136/70 97% 1000 76-16 132/68 97% 1015 80-16 130/67 95% 1030 84-16 129/67 95% 1039 79-16 133/66 94% 1048 77-16 143/67 97% DISCHARGE: POST PAIN 4, DRESSING SITE DRY AND INTACT, IV N/A, GAIT STEADY, TEACHING COMPLETED, PATIENT ACKNOWLEDGES UNDERSTANDING YES, PATIENT DISCHARGED AT 1105 PN LUMBAR FACET BLOCK DIAGNOSTIC PRE PROCEDURE DIAGNOSIS LUMBAR SPONDYLOSIS, LUMBOSACRAL SPONDYLOSIS POST PROCEDURE DIAGNOSIS LUMBAR SPONDYLOSIS, LUMBOSACRAL SPONDYLOSIS PROCEDURE LEFT L4-L5 AND LEFT L5-S1 FACET BLOCK DIAGNOSTIC NUMBER [address] HORACIO SMITH APPLICATIONS CHEMIST NONE ANESTHESIA LOCAL PRE PROCEDURE NOTE THE PATIENT WITH HISTORY OF CHRONIC LOW BACK PAIN. I EVALUATED THE PATIENT AND REVIEWED THE CHART. ON 06/07/2020, A BILATERAL L4-L5, L5-S1 DIAGNOSTIC BLOCK WAS DONE AND THE PATIENT EXPRESSED THAT THE PAIN WENT DOWN 80% IN THE FOLLOW UP ON 06/22/2020 WITH BUDDY BILLINGSLEY, NURSE PRACTITIONER. I WENT OVER THE RISKS, ALTERNATIVES, AND BENEFITS ASSOCIATED WITH THIS PROCEDURE. THE PATIENT WOULD LIKE TO PROCEED AND GAVE CONSENT TO PERFORM THE PROCEDURE. AGREED WITH THE PATIENT, WE ARE DOING THIS PROCEDURE TO DETERMINE IF THE PATIENT IS A CANDIDATE FOR A RADIOFREQUENCY ABLATION OF THE FACETS JOINTS. THE PATIENT DENIES UNEXPLAINABLE WEIGHT LOSS, FEVER, CHILLS, OR NEW CHANGES IN URINARY OR BOWEL CONTROL. THE PATIENT IS COVID-19 NEGATIVE DESCRIPTION OF PROCEDURE THE PATIENT WAS BROUGHT TO THE PROCEDURE ROOM AND PLACED IN THE PRONE POSITION. THE LUMBOSACRAL AREA WAS CLEANED WITH CHLORAPREP SOLUTION AND DRAPED ASEPTICALLY. THE PROCEDURE WAS DONE UNDER STERILE CONDITIONS. A TIMEOUT WAS PERFORMED WHERE LATERALITY AND THE SITE OF THE PROCEDURE WERE CHECKED AND CONFIRMED WITH EVERYONE IN THE ROOM. UNDER FLUOROSCOPIC GUIDANCE, TARGETS WERE SELECTED AT THE INTERSECTION OF THE LEFT TRANSVERSE PROCESS OF L4, L5 AND ALA OF S1 WITH ITS RESPECTIVE SUPERIOR ARTICULAR PROCESS WITH A TARGET OF THE MEDIAN BRANCHES OF L3, L4 AND THE DORSAL RAMI OF L5. WHEN I WAS TRYING TO IDENTIFY THE TARGETS, IT APPEARED THAT THE PATIENT HAS A LUMBARIZATION OF THE FIRST SACRAL SEGMENT. SO I COUNTED FROM THE TOP STARTING AT T12-L1 DOWN AND IDENTIFIED THE TARGETS AND IT IS CLEAR THAT THERE IS A LUMBARIZATION OF S1. I CONFIRMED AGAIN WITH EVERYONE IN THE ROOM THE LATERALITY OF THE TARGET AT 1021. LIDOCAINE WAS USED TO NUMB THE SKIN AND THE SUBCUTANEOUS TISSUE BELOW IT. SPINAL NEEDLE, 22-GAUGE, WAS ADVANCED UNDER FLUOROSCOPIC GUIDANCE AND FOLLOWING PATIENT FEEDBACK UNTIL THE TARGETS WERE REACHED. POSITION OF THE NEEDLES WAS VERIFIED WITH AP AND LATERAL VIEWS. AFTER PROPER POSITION OF THE NEEDLES WAS ACHIEVED, ISOVUE-M DYE 30%, 0.1 ML, WAS INJECTED AT EACH SITE SHOWING ADEQUATE SPREAD OF THE DYE. THEN, A SOLUTION OF 0.5 ML OF BUPIVACAINE 0.25% WAS INJECTED AT EACH SITE. THE MEDICATIONS WERE VERIFIED WITH THE NURSE. THERE WAS NO EVIDENCE OF BLOOD, PARESTHESIA OR CEREBROSPINAL FLUID DURING THE PROCEDURE. THE PATIENT WAS SENT TO THE RECOVERY ROOM. THE PATIENT WAS MOVING THE EXTREMITIES AND DOING WELL. THERE WERE NO COMPLICATIONS DURING THE PROCEDURE. ESTIMATED BLOOD LOSS WAS LESS THAN 5 ML. FLUOROSCOPY TIME WAS 42 SECONDS POST PROCEDURE NOTE THE PATIENT WILL DOCUMENT THE PAIN LEVEL AND RESPONSE TO THIS PROCEDURE PER PAIN DIARY. THE PATIENT WILL BE SEEN IN A FOLLOW UP IN THE NEXT FEW WEEKS. FURTHER DETERMINATION FOR THE PATIENT'S CASE WILL BE DONE AT THE NEXT VISIT. INSTRUCTIONS WERE GIVEN, QUESTIONS WERE ANSWERED, AND THE PATIENT EXPRESSED UNDERSTANDING AND AGREED WITH THE PLAN. I, YAMILETH PALMER, DOCUMENTED THE ABOVE INFORMATION ACTING A SCRIBE FOR DR. SMITH. I HAVE REVIEWED THE ABOVE DOCUMENT, WRITTEN BY YAMILETH PALMER, BLOCKLAYER, AND I VERIFY THAT IT IS ACCURATE PROCEDURE CODES 26258 INJ PARAVERT F JNT L/S 1 LEV, MODIFIERS: [place] 10292 INJ PARAVERT F JNT L/S 2 LEV, MODIFIERS: LT DISPOSITION & COMMUNICATION FOLLOW UP FOLLOW UP WITH BUSINESS REPRESENTATIVE (REASON: POST DIAGNOSTIC LEFT L4-L5, L5-S1) ELECTRONICALLY SIGNED BY HORACIO SMITH MD, MD ON 07/25/2020 AT 01:18 PM EDT DISCLAIMER : THIS IS A VISIT SUMMARY EXTRACTED FROM THE [employer] CHART. IT IS NOT A COPY OF THE [employer] PROGRESS NOTE. YURY
== END ==
LOC: M PAIN 09:00
PROVIDERS: ATTEND Anesthesiology
DX: M47.816 Spondylosis without myelopathy or radiculopathy, lumbar region (principal); M47.817 Spondylosis without myelopathy or radiculopathy, lumbosacral region; I10 Essential (primary) hypertension; E55.9 Vitamin D deficiency, unspecified; J45.909 Unspecified asthma, uncomplicated; Z88.1 Allergy status to other antibiotic agents; Z88.6 Allergy status to analgesic agent; E66.01 Morbid (severe) obesity due to excess calories; Z68.42 Body mass index [BMI] 45.0-49.9, adult; Z79.01 Long term (current) use of anticoagulants; Z79.899 Other long term (current) drug therapy
CPT/HCPCS: 64493; 64494; Q9967

== ENCOUNTER → 2020-07-26 | Outpatient (REF) | payer BC, MEDICARE ==
[~2020-07-26] MED LIST changes: -BUPIVACAINE HCL 0.25% 30ML VIAL As Ordered ONE; -ISOVUE-M 300 61% 15ML VIAL As Ordered ONE; -LIDOCAINE 1% SDV 30ML VIAL As Ordered ONE
[2020-07-26 12:44] LABS: HEMOGLOBIN A1c 6.5 %
[2020-07-26 13:21] LABS: ALBUMIN 3.8 GM/DL (3.2-5.2); BILIRUBIN,TOTAL 0.6 MG/DL (0.2-1.0); CHOLESTEROL RISK RATIO 3.018 (<5); CREATININE FOR GFR 1.16 MG/DL (0.55-1.30); POTASSIUM SERUM 5.3 MEQ/L (3.5-5.1); TOTAL 25(OH) VITAMIN D 53.6 NG/ML (30.0-100.0); TOTAL PROTEIN 7.8 GM/DL (6.4-8.2)
== END ==
LOC: M SFHCADAM 09:11
PROVIDERS: ATTEND Physician Assistant
DX: I10 Essential (primary) hypertension (principal); E11.9 Type 2 diabetes mellitus without complications; Z51.81 Encounter for therapeutic drug level monitoring; E55.9 Vitamin D deficiency, unspecified

== ENCOUNTER → 2020-08-05 | Outpatient (CLI) | payer BC, MEDICARE ==
--- NOTE | 2020-08-10 02:23 | ECWPNPC ---
PATIENT NAME: ROBIN NGUYỄN : 1950 GENDER: FEMALE VISIT DATE: 08/05/2020 DISCHARGE DATE: 08/05/20 1435 VISIT LOCKED DATE TIME: PHYSICIAN: BUDDY BILLINGSLEY PHYSICIAN PAGER NO: ACTIVE RESOURCE: BUDDY BILLINGSLEY REASON FOR APPOINTMENT 1. POST LEFT DIAG LUMBAR FACET BLK L4/L5, L5/S1 HISTORY OF PRESENT ILLNESS DEPRESSION SCREENING: PHQ-2 (2015 EDITION) LITTLE INTEREST OR PLEASURE IN DOING THINGS?NOT AT ALL FEELING DOWN, DEPRESSED, OR HOPELESS?NOT AT ALL TOTAL SCORE0 GENERAL: ROBIN IS BEING SEEN FOR POST PROCEDURE FOLLOW-UP. HAD LEFT DIAGNOSTIC LUMBAR BLOCK L4-5, L5-S1 #2 ON 07/19/2020. HOURLY DIARY IS REVIEWED. THIS IS SHOWING 50% REDUCTION IN PAIN POST PROCEDURE FOR 24 HOURS AND THEN PAIN RETURNED TO BASELINE. WE DISCUSSED RADIOFREQUENCY PROCEDURE. PATIENT IS REQUESTING THAT WE TRY THERAPEUTIC BLOCK THAT WE HAVE DONE IN THE PAST THAT HAVE BEEN HELPFUL. -. FALL RISK SCREENING: SCREENING :NO FALLS REPORTED IN THE LAST YEAR NONE PAIN SCREENING: PATIENT HAS A COMPLAINT OF ACUTE OR CHRONIC PAIN :YES LOCATION OF PAIN:LOW BACK INTENSITY OF PAIN (SCALE OF 1 TO 10):3 WHAT DOES YOUR PAIN FEEL LIKE:ACHING DURATION:CONTINOUS PAIN IS INCREASED BY:ACTIVITIES PAIN IS DECREASED BY:SITTING NURSING NOTE: -. PAIN CENTER INTAKE QUESTIONS: DO YOU HAVE A HISTORY OF MRSA? :NO DO YOU TAKE A BLOOD THINNERS? :YES DO YOU HAVE ANY BLEEDING DISORDERS? :NO ANY NEW NUMBNESS OR WEAKNESS IN YOUR LEGS OR ARMS? :NO ANY PACEMAKER,DEFIBRILLATOR, OR DORSAL COLUMN STIMULATOR? :NO DO YOU HAVE ANY RASHES OR OPEN SORES? :NO ARE YOU ALLERGIC TO IV DYE? :NO ARE YOU DIABETIC? :NO ANY NEW PROBLEMS WITH YOUR MEDICATIONS? :NO HAVE YOU RECEIVED A VACCINE IN THE PAST 30 DAYS? :NO DO YOU PLAN TO RECEIVE A VACCINE IN THE NEXT 21 DAYS? :NO DO YOU NEED ANY PRESCRIPTION? :NO DO YOU TAKE ANY IMMUNOSUPPRESSIVE MEDICATIONS? :NO IS THERE A CHANCE YOU COULD BE ? :NO ARE YOU BREAST FEEDING? :NO CURRENT MEDICATIONS TAKING ALBUTEROL 90 MCG/ACT AEROSOL SOLUTION 2 PUFFS INHALATION EVERY 4 HOURS NEEDED, NOTES: NONE RECENTLY TAKING FLONASE 50 MCG/ACT SUSPENSION 2 SPRAYS IN EACH NOSTRIL NASALLY DAILY, NOTES: NONE RECENTLY TAKING CETIRIZINE HCL 10 MG TABLET 1 TABLET ORALLY ONCE A DAY, NOTES: 07/18/20899 TAKING CALTRATE 600+D 600-400 MG-UNIT TABLET 1 TABLET ORALLY TWICE A DAY, NOTES: 07/18/20899 TAKING MAGNESIUM 400 MG TABLET 1 TABLETS WITH A MEAL ORALLY ONCE A DAY, NOTES: 07/18/20899 TAKING VITAMIN C 500 MG CAPSULE 1 TABLET ORALLY ONCE A DAY, NOTES: 07/18/20899 TAKING ACETAMINOPHEN EXTRA STRENGTH 500 MG TABLET 2 TABS ORALLY EVERY 8 HOURS NEEDED FOR PAIN, NOTES: 07/18/20899 TAKING DRISDOL 82769 UNIT CAPSULE 1 CAPSULE ORALLY ONCE A MONTH, NOTES: 07/18/20899 TAKING MULTIVITAMIN ADULTS - TABLET 1 TABLET ORALLY DAILY, NOTES: 07/18/20899 TAKING TRIAMCINOLONE ACETONIDE 0.1 % CREAM 1 APPLICATION EXTERNALLY TWO TIMES A WEEK, NOTES: 07/19/20 0700 TAKING LISINOPRIL 40 MG TABLET 1 TABLET ORALLY ONCE A DAY, NOTES: 0700 07/19/20 TAKING FUROSEMIDE 40 MG TABLET 1 TABLET ORALLY TWICE A DAY, NOTES: 07/18/20899 TAKING ELIQUIS 5 MG TABLET 1 TABLET ORALLY TWICE A DAY, NOTES: 07/15/20 TAKING VERAPAMIL HCL 240 MG TABLET EXTENDED RELEASE 1 TABLET EVERY MORNING WITH FOOD ORALLY ONCE A DAY, NOTES: 07/18/20 1800 NOT-TAKING AMOXICILLIN-POT CLAVULANATE 875-125 MG TABLET 1 TABLET ORAL BID NOT-TAKING COUMADIN 5 MG TABLET 1 TAB ORALLY DAILY MEDICATION LIST REVIEWED AND RECONCILED WITH THE PATIENT PAST MEDICAL HISTORY ATRIAL FIBRILLATION HYPERTENSION EDEMA VITAMIN D DEFICIENCY ASTHMA OSTEOARTHRITIS PSORIASIS 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 HISTORY OF SEIZURE X 1 AFTER 1981 ALLERGIES ASPIRIN: SNEEZING AND COUGHING - SIDE EFFECTS KEFLEX: THRUSH AND SWOLLEN TONGUE - SIDE EFFECTS NAPROXEN: WHEEZING, SHORTNESS OF BREATH SURGICAL HISTORY SURGERY ON LEFT GREAT TOE 1976 1981 FAMILY HISTORY FATHER: MOTHER: 58 YRS, DIAGNOSED WITH DIABETES SOCIAL HISTORY GENERAL: TOBACCO USE ARE YOU A:NONSMOKER , NEVER SMOKER LATEX QUESTIONNAIRE LATEX ALLERGY : HAVE YOU EVER DEVELOPED ANY TYPE OF REACTION AFTER HANDLING LATEX PRODUCTS SUCH RUBBER GLOVES, CONDOMS, DIAPHRAGMS, BALLOONS, SOCKS, OR UNDERWEAR?NO LATEX ALLERGY : HAVE YOU EVER DEVELOPED ANY TYPE OF REACTION DURING OR AFTER DENTAL APPOINTMENT, VAGINAL/RECTAL EXAMINATION, SURGICAL PROCEDURE, OR ANY OTHER EXPOSURE?NO LATEX RISK : HAVE YOU EVER HAD ANY DIFFICULTY BREATHING OR HIVES AFTER EATING OR HANDLING ANY FRUITS, OR VEGETABLES; SUCH KIWI, BANANAS, STONE FRUITS, OR CHESTNUTSNO LATEX RISK : DO YOU HAVE A PREVIOUS PERSONAL HISTORY OF MORE THAN NINE SURGERIES, SPINA BIFIDA, OR REPEATED CATHERIZATIONS? NO LATEX RISK : ARE YOU FREQUENTLY EXPOSED TO LATEX PRODUCTS IN YOUR OCCUPATION?NO DATE ASKED : 08/05/2020 LUNG CANCER SCREENING SMOKING STATUS:NON SMOKER BMI CARE GOAL FOLLOW-UP ABOVE NORMAL BMI FOLLOW-UPDIETARY MANAGEMENT EDUCATION, GUIDANCE, AND COUNSELING ALCOHOL SCREENING DID YOU HAVE A DRINK CONTAINING ALCOHOL IN THE PAST YEAR?NO POINTS0 INTERPRETATIONNEGATIVE RECREATIONAL DRUG USE DENIES. CAFFEINE CAFFEINE USE?YES HOW OFTEN AND HOW MUCH? ONE CUP OF COFFEE A DAY SEXUAL HX HAD SEX IN THE LAST 12 MONTHS (VAGINAL, ORAL, OR ANAL)?YES HAVE YOU EVER HAD AN STD?NO HIV / HEP-C SCREENING HIV TEST OFFERED TO PATIENT:YES DATE OFFERED:01/08/2017 TEST ACCEPTED:NO HEP-C TEST OFFERED TO PATIENT:YES DATE OFFERED:01/08/2017 REASON:PATIENT DECLINED TEST ACCEPTED:NO REASON:PATIENT DECLINED EPISCOPALIAN [id number] NONE LANGUAGE CROATIAN. 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 EXERCISE: WALKS. MARITAL STATUS: . OTHERS AT HOME: SPOUSE. TODAY'S VISIT 02/17/20 PATIENT DESCRIBES PAIN :ACHING, IT COMES AND GOES FROM 0-10, WHAT LEVEL IS YOUR PAIN TODAY?5 PRECIPITATING FACTORS STANDING, SITTING ALLEVIATING FACTORS LAYIND DOWN IMPACT ON FUNCTION NO PAIN CLINIC PFS, CLERGY, PUBLIC HEALTH REFERRALS WAS THE PROVIDER NOTIFIED OF ANY PERTINENT INFO?YES HAS THE PATIENT BEEN EDUCATED REGARDING HIS/HER PLAN OF CARE?YES HAS THE PATIENT BEEN EDUCATED REGARDING PAIN, THE RISK FOR PAIN, THE IMPORTANCE OF EFFECTIVE PAIN MANAGEMENT, AND THE PAIN ASSESSMENT PROCESS?YES PROCEDURE APPT, IV, PO SEDATION ADVANCE DIRECTIVE ADVANCE DIRECTIVE DISCUSSED WITH PATIENT:YES PATIENT HAS NO ADVANCED DIRECTIVE, INFORMATION ON HCP OFFERED AND DECLINED. HOSPITALIZATION/MAJOR DIAGNOSTIC PROCEDURE SURGERIES ABOVE CELLULITIS IN LEFT LEG 06/2019 CELLULITIS LEFT LEG 02/2020 REVIEW OF SYSTEMS CONSTITUTIONAL: ANY RECENT FEVER NO . CHILLS NO . WEIGHT CHANGE OF UNKNOWN REASONS NO . GASTROENTEROLOGY: NEW UNEXPLAINABLE CHANGES IN BOWEL CONTROL NO . CONSTIPATION NO . GENITOURINARY: ANY NEW CHANGE IN BLADDER CONTROL? NO . NEUROLOGY: NEW ONSET DIZZINESS OR NEUROLOGICAL CHANGES NOT MENTIONED NO . NEW NUMBNESS OR PAIN PATTERNS NOT MENTIONED AND PERTINENT TO TODAY'S VISIT NO . CARDIOLOGY: NEW CHEST PRESSURE NO . NEW CHEST PAIN NO . RESPIRATORY: UNEXPLAINABLE COUGH NO . NEW SHORTNESS OF BREATH NO . VITAL SIGNS WT 252.4 LBS, HT 63.50 IN, BMI 44.00 INDEX, BP 110/68 MM HG, HR 86 /MIN, RR 18 /MIN, TEMP 96.5 F, OXYGEN SAT % 98%, NA INITIALS SC 13:48. EXAMINATION GENERAL EXAMINATION: GENERALALERT. PSYCHAFFECT NORMAL. NECK:TRACHEA MIDLINE. NO CERVICAL OR SUPRACLAVICULAR LYMPHADENOPATHY NOTED. LUNGS:LUNG PRICE ARE CLEAR TO AUSCULTATION BILATERALLY. GOOD MOVEMENT OF AIR. HEART:S1, S2 IN A REGULAR RATE AND RHYTHM. NO SIGNIFICANT MURMURS, RUBS OR GALLOPS NOTED. MUSCULOSKELETAL:3/5 RIGHT-5/5LEFT MST. LUMBAR:INSPECTION-PSORIATIC PLAQUES LUMBAR SPINE/PARASPINAL , PALPATION: + FOR PAIN OVER L/S SPINE. + FOR PAIN OVER L/S PARSPINALS SPECIFIC POINT TENDERNESS OVER BILAT. L4-5, L5-S1 LUMBAR FACETS. DIAGNOSTIC TESTS REVIEWEDMRI L/S FDTNM-7-23-2015-REVIEWED. ASSESSMENTS SPONDYLOSIS OF LUMBOSACRAL REGION WITHOUT MYELOPATHY OR RADICULOPATHY - M47.817 (PRIMARY) TREATMENT SPONDYLOSIS OF LUMBOSACRAL REGION WITHOUT MYELOPATHY OR RADICULOPATHY NOTES: BILATERAL L4-5, L5-S1 THERAPEUTIC FACET BLOCK WITH KENALOG, HOLD MED SEND. ELOQUIS LETTER TO DENICE REYES PRIMARY CARE PROVIDER: STOP ELOQUIS 3 DAYS PREPROCEDURE AND RESTART 3 DAYS POSTPROCEDURE. PROCEDURE CODES FA211 ESTABILISHED PATIENT [facility] FACILITY CHARGE DISPOSITION & COMMUNICATION FOLLOW UP POST PROCEDURE (REASON: BILATERAL L4-5, L5-S1 THERAPEUTIC FACET BLOCK WITH KENALOG, HOLD MED) ELECTRONICALLY SIGNED BY SHARLENE MONTERROSO ON 08/09/2020 AT 12:16 PM EST DISCLAIMER : THIS IS A VISIT SUMMARY EXTRACTED FROM THE [employer] CHART. IT IS NOT A COPY OF THE [facility] PROGRESS NOTE. YURY
== END ==
LOC: M PAIN 13:45
PROVIDERS: ATTEND Nurse Practitioner Family
DX: M47.817 Spondylosis without myelopathy or radiculopathy, lumbosacral region (principal); I48.91 Unspecified atrial fibrillation; I10 Essential (primary) hypertension; E55.9 Vitamin D deficiency, unspecified; J45.909 Unspecified asthma, uncomplicated; L40.9 Psoriasis, unspecified; Z79.899 Other long term (current) drug therapy; Z88.6 Allergy status to analgesic agent; Z88.1 Allergy status to other antibiotic agents

== ENCOUNTER → 2020-08-31 | Outpatient (CLI) | payer BC, MEDICARE | LOC: M LABSMTC 11:19 | PROVIDERS: ATTEND Anesthesiology | DX: Z20.828 Contact with and (suspected) exposure to other viral communicable diseases (principal) ==

== ENCOUNTER → 2020-09-05 | Outpatient (CLI) | payer BC, MEDICARE ==
[~2020-09-05] MED LIST changes: +BUPIVACAINE HCL 0.25% 30ML VIAL As Ordered ONE; +ISOVUE-M 300 61% 15ML VIAL As Ordered ONE; +LIDOCAINE 1% SDV 30ML VIAL As Ordered ONE; +TRIAMCINOLONE ACETONIDE SUSP 40 MG/ML VIAL (J3301) As Ordered ONE; +diazePAM 2 MG TAB As Ordered ONE; +oxyCODONE 5MG TAB As Ordered ONE
--- NOTE | 2020-09-05 13:26 | REP ---
INDICATION: BILATERAL THERAPEUTIC FACET. COMPARISON: None. TECHNIQUE: Two C arm views lower lumbar spine performed. FINDINGS: Two needles overlie the lower lumbar facet joints bilaterally. IMPRESSION: 14 seconds fluoroscopy time utilized. <Electronically signed by Alfie Arnold > 09/05/20 [id number]
--- NOTE | 2020-09-08 03:04 | ECWPNPC ---
PATIENT NAME: ROBIN NGUYỄN : 1950 GENDER: FEMALE VISIT DATE: 09/05/2020 DISCHARGE DATE: 09/05/20 1202 VISIT LOCKED DATE TIME: PHYSICIAN: HORACIO SMITH MD PHYSICIAN PAGER NO: ACTIVE RESOURCE: HORACIO SMITH MD REASON FOR APPOINTMENT 1. BILATERAL THERAPEUTIC LUMBAR FACET BLOCK L4-L5, L5-S1 HISTORY OF PRESENT ILLNESS GENERAL: -. FALL RISK SCREENING: SCREENING :NO FALLS REPORTED IN THE LAST YEAR PAIN SCREENING: PATIENT HAS A COMPLAINT OF ACUTE OR CHRONIC PAIN :YES LOCATION OF PAIN:LOW BACK, OTHER: BUTTOCKS INTENSITY OF PAIN (SCALE OF 1 TO 10):6 WHAT DOES YOUR PAIN FEEL LIKE:ACHING, SORE DURATION:CONTINOUS, ALL DAY PAIN IS INCREASED BY:ACTIVITIES, PROLONGED STANDING, OTHERS WALKING PAIN IS DECREASED BY:SITTING, OTHERS LAYING DOWN NURSING NOTE: -. PAIN CENTER INTAKE QUESTIONS: DO YOU HAVE A HISTORY OF MRSA? :NO DO YOU TAKE A BLOOD THINNERS? :YES PUJA, LAST DOSE: 09/01/20 AT 2100 DO YOU HAVE ANY BLEEDING DISORDERS? :NO ANY NEW NUMBNESS OR WEAKNESS IN YOUR LEGS OR ARMS? :NO ANY PACEMAKER,DEFIBRILLATOR, OR DORSAL COLUMN STIMULATOR? :NO DO YOU HAVE ANY RASHES OR OPEN SORES? :YES PSORIASIS RASH ARE YOU ALLERGIC TO IV DYE? :NO ARE YOU DIABETIC? :NO ANY NEW PROBLEMS WITH YOUR MEDICATIONS? :NO HAVE YOU RECEIVED A VACCINE IN THE PAST 30 DAYS? :YES IF SO WHAT VACCINE AND WHEN? FLU VACCINE APPROX 3-4 WEEKS AGO DO YOU PLAN TO RECEIVE A VACCINE IN THE NEXT 21 DAYS? :NO DO YOU TAKE ANY IMMUNOSUPPRESSIVE MEDICATIONS? :NO ANY HISTORY OF SEIZURES? :YES 1 SEIZURE RIGHT AFTER IN 1981 ANY HISTORY OF CARDIAC ISSUES OR EVENTS? :YES A. FIB DO YOU HAVE SLEEP APNEA? :NO ANY RECENT HEAD INJURY? :NO DO YOU HAVE ANY NEW INFECTIONS? :NO IS THERE A CHANCE YOU COULD BE ? :NO ARE YOU BREAST FEEDING? :NO WHEN DID YOU LAST EAT? : 09/04/20 1730 WHEN DID YOU LAST DRINK? : 0830 WHAT DID YOU LAST DRINK? : WATER NAME OF PERSON DRIVING YOU HOME? : ENDER NGUYỄN () DO YOU HAVE ANY OTHER QUESTIONS OR CONCERNS? : - CURRENT MEDICATIONS TAKING ALBUTEROL 90 MCG/ACT AEROSOL SOLUTION 2 PUFFS INHALATION EVERY 4 HOURS NEEDED, NOTES: NONE RECENTLY TAKING FLONASE 50 MCG/ACT SUSPENSION 2 SPRAYS IN EACH NOSTRIL NASALLY DAILY, NOTES: NONE RECENTLY TAKING CETIRIZINE HCL 10 MG TABLET 1 TABLET ORALLY ONCE A DAY, NOTES: 09-04-20899 TAKING CALTRATE 600+D 600-400 MG-UNIT TABLET 1 TABLET ORALLY TWICE A DAY, NOTES: 09-04-20899 TAKING MAGNESIUM 400 MG TABLET 1 TABLETS WITH A MEAL ORALLY ONCE A DAY, NOTES: 09-04-20 TAKING VITAMIN C 500 MG CAPSULE 1 TABLET ORALLY ONCE A DAY, NOTES: 09-04-20799 TAKING ACETAMINOPHEN EXTRA STRENGTH 500 MG TABLET 2 TABS ORALLY EVERY 8 HOURS NEEDED FOR PAIN, NOTES: 09-04-20899 TAKING MULTIVITAMIN ADULTS - TABLET 1 TABLET ORALLY DAILY, NOTES: 09-04-20799 TAKING TRIAMCINOLONE ACETONIDE 0.1 % CREAM 1 APPLICATION EXTERNALLY TWO TIMES A WEEK, NOTES: THIS MORNING TAKING LISINOPRIL 40 MG TABLET 1 TABLET ORALLY ONCE A DAY, NOTES: 09-05-20699 TAKING ELIQUIS 5 MG TABLET 1 TABLET ORALLY TWICE A DAY, NOTES: 08-31-202099 TAKING VERAPAMIL HCL 240 MG TABLET EXTENDED RELEASE 1 TABLET EVERY MORNING WITH FOOD ORALLY ONCE A DAY, NOTES: 09-04-20899 TAKING FUROSEMIDE 40 MG TABLET TAKE ONE TABLET BY MOUTH TWICE A DAY , NOTES: 09-04-20799 TAKING DRISDOL 14464 UNIT CAPSULE 1 CAPSULE ORALLY ONCE A MONTH, NOTES: LAST MONTH NOT-TAKING LISINOPRIL 40 MG TABLET TAKE ONE TABLET BY MOUTH EVERY DAY NOT-TAKING AMOXICILLIN-POT CLAVULANATE 875-125 MG TABLET 1 TABLET ORAL BID NOT-TAKING COUMADIN 5 MG TABLET 1 TAB ORALLY DAILY MEDICATION LIST REVIEWED AND RECONCILED WITH THE PATIENT PAST MEDICAL HISTORY ATRIAL FIBRILLATION HYPERTENSION EDEMA VITAMIN D DEFICIENCY ASTHMA OSTEOARTHRITIS PSORIASIS 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 HISTORY OF SEIZURE X 1 AFTER 1981 ALLERGIES ASPIRIN: SNEEZING AND COUGHING - SIDE EFFECTS KEFLEX: THRUSH AND SWOLLEN TONGUE - SIDE EFFECTS NAPROXEN: WHEEZING, SHORTNESS OF BREATH SURGICAL HISTORY SURGERY ON LEFT GREAT TOE 1976 1981 FAMILY HISTORY FATHER: MOTHER: 58 YRS, DIAGNOSED WITH DIABETES SOCIAL HISTORY GENERAL: TOBACCO USE ARE YOU A:NONSMOKER , NEVER SMOKER LATEX QUESTIONNAIRE LATEX ALLERGY : HAVE YOU EVER DEVELOPED ANY TYPE OF REACTION AFTER HANDLING LATEX PRODUCTS SUCH RUBBER GLOVES, CONDOMS, DIAPHRAGMS, BALLOONS, SOCKS, OR UNDERWEAR?NO LATEX ALLERGY : HAVE YOU EVER DEVELOPED ANY TYPE OF REACTION DURING OR AFTER DENTAL APPOINTMENT, VAGINAL/RECTAL EXAMINATION, SURGICAL PROCEDURE, OR ANY OTHER EXPOSURE?NO DATE ASKED : 08/05/2020 LATEX RISK : HAVE YOU EVER HAD ANY DIFFICULTY BREATHING OR HIVES AFTER EATING OR HANDLING ANY FRUITS, OR VEGETABLES; SUCH KIWI, BANANAS, STONE FRUITS, OR CHESTNUTSNO LATEX RISK : DO YOU HAVE A PREVIOUS PERSONAL HISTORY OF MORE THAN NINE SURGERIES, SPINA BIFIDA, OR REPEATED CATHERIZATIONS? NO LATEX RISK : ARE YOU FREQUENTLY EXPOSED TO LATEX PRODUCTS IN YOUR OCCUPATION?NO LUNG CANCER SCREENING SMOKING STATUS:NON SMOKER BMI CARE GOAL FOLLOW-UP ABOVE NORMAL BMI FOLLOW-UPDIETARY MANAGEMENT EDUCATION, GUIDANCE, AND COUNSELING ALCOHOL SCREENING DID YOU HAVE A DRINK CONTAINING ALCOHOL IN THE PAST YEAR?NO POINTS0 INTERPRETATIONNEGATIVE RECREATIONAL DRUG USE DENIES. CAFFEINE CAFFEINE USE?YES HOW OFTEN AND HOW MUCH? ONE CUP OF COFFEE A DAY SEXUAL HX HAD SEX IN THE LAST 12 MONTHS (VAGINAL, ORAL, OR ANAL)?YES HAVE YOU EVER HAD AN STD?NO HIV / HEP-C SCREENING HIV TEST OFFERED TO PATIENT:YES DATE OFFERED:01/08/2017 TEST ACCEPTED:NO HEP-C TEST OFFERED TO PATIENT:YES DATE OFFERED:01/08/2017 REASON:PATIENT DECLINED TEST ACCEPTED:NO REASON:PATIENT DECLINED [employer] [id number] NONE LANGUAGE TUVALUAN. 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 EXERCISE: WALKS. MARITAL STATUS: . OTHERS AT HOME: SPOUSE. TODAY'S VISIT 02/17/20 PATIENT DESCRIBES PAIN :ACHING, IT COMES AND GOES FROM 0-10, WHAT LEVEL IS YOUR PAIN TODAY?5 PRECIPITATING FACTORS STANDING, SITTING ALLEVIATING FACTORS LAYIND DOWN IMPACT ON FUNCTION NO PAIN CLINIC PFS, CLERGY, PUBLIC HEALTH REFERRALS WAS THE PROVIDER NOTIFIED OF ANY PERTINENT INFO?YES HAS THE PATIENT BEEN EDUCATED REGARDING HIS/HER PLAN OF CARE?YES HAS THE PATIENT BEEN EDUCATED REGARDING PAIN, THE RISK FOR PAIN, THE IMPORTANCE OF EFFECTIVE PAIN MANAGEMENT, AND THE PAIN ASSESSMENT PROCESS?YES PROCEDURE APPT, IV, PO SEDATION ADVANCE DIRECTIVE ADVANCE DIRECTIVE DISCUSSED WITH PATIENT:YES PATIENT HAS NO ADVANCED DIRECTIVE, INFORMATION ON HCP OFFERED AND DECLINED. HOSPITALIZATION/MAJOR DIAGNOSTIC PROCEDURE SURGERIES ABOVE CELLULITIS IN LEFT LEG 06/2019 CELLULITIS LEFT LEG 02/2020 VITAL SIGNS WT 255.8 LBS, HT 63.50 IN, BMI 44.60 INDEX, BP 131/63 MM HG, HR 78 /MIN, RR 18 /MIN, TEMP 95.5 F, OXYGEN SAT % 99%, SAFE IN ENV? (Y/N) YES, NA INITIALS AW 0924, REVIEWED BY: KG. EXAMINATION GENERAL EXAMINATION: THE PATIENT IS ALERT, ORIENTED TIMES THREE AND COOPERATIVE. HEART SHOWS REGULAR RHYTHM, NO MURMURS AND NO GALLOPS. LUNGS ARE CLEAR TO AUSCULTATION. 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 RADICULOPATHY, LUMBOSACRAL REGION - M47.817 TREATMENT SPONDYLOSIS WITHOUT MYELOPATHY OR RADICULOPATHY, LUMBAR REGION [facility] FACET BLOCK (PAIN)[id number] MEDICATION: VALIUM TAB 2MG ORALLY (DIAZEPAM)SARATH MENDOZAITA 09/05/2020 10:24:46 AM > LOT # [id number], EXP. DATE 09/2020 DESTINEE MENDOZA 09/05/2020 10:25:14 AM > ABOVE VERIFIED MALCOLM SAENZ 09/05/2020 10:28:02 AM > GIVEN MEDICATION: OXYCODONE HCL TAB 5MG ORALLY REJISARATHDESTINEE 09/05/2020 10:26:14 AM > LOT# [id number], EXP. 10/2021, VERIFIED MALCOLM SAENZ 09/05/2020 10:28:30 AM > GIVEN SPONDYLOSIS WITHOUT MYELOPATHY OR RADICULOPATHY, LUMBOSACRAL REGION [facility] FACET BLOCK (PAIN)[id number] PROCEDURES PAIN NURSING RECORD PRE-PROCEDURE IV SITE N/A, IV STARTED # NONE, PRE-PROCEDURE ORAL MEDICATIONS YES GIVEN ORDERED PROCEDURE IN ROOM 1100, PHYSICIAN IN ROOM 1113, START 1119, FINISH 1126, PHYSICIAN OUT OF ROOM 1128, OUT OF ROOM 1132, STEROID KENALOG, O2 RA, ECG NORMAL SINUS, PATIENT SHIELDED YES, SAFETY STRAP YES, PREP CHLOROPREP DR SMITH PREPPED ,, IV INFUSED NONE, DRESSING TEGADERM DR SMITH LOC: 1. ALERT, ORIENTEDLETTY KAREN 09/05/2020 11:17:00 AM > RESP: 1. REGULAR, NO DYSPNEA COLOR: 1. PINKLETTY KAREN 09/05/2020 11:17:12 AM > SKIN: 1. WARM, DRYLETTY KAREN 09/05/2020 11:17:39 AM > POSITION: 1. PRONELETTY KAREN 09/05/2020 11:17:46 AM > VITALS: 1105 141/72 71 98% 18 KGULLO RN NOTES PT DOES HAVE SOME RASH ON HER BACK WHICH DR IS AWARE DISCHARGE: POST PAIN 2, DRESSING SITE DRY AND INTACT, IV N/A, GAIT STEADY, TEACHING COMPLETED, PATIENT ACKNOWLEDGES UNDERSTANDING YES, PATIENT DISCHARGED AT 1149 PN LUMBAR FACET BLOCK THERAPEUTIC PRE PROCEDURE DIAGNOSIS LUMBAR SPONDYLOSIS, LUMBOSACRAL SPONDYLOSIS POST PROCEDURE DIAGNOSIS LUMBAR SPONDYLOSIS, LUMBOSACRAL SPONDYLOSIS PROCEDURE BILATERAL L4-L5 AND BILATERAL L5-S1 LUMBAR FACET THERAPEUTIC BLOCK SURGEON DR. HORACIO SMITH STATISTICS MANAGER NONE ANESTHESIA LOCAL PRE PROCEDURE NOTE THE PATIENT HAS A HISTORY OF CHRONIC LOW BACK PAIN. I EVALUATED THE PATIENT AND REVIEWED THE CHART. I WENT OVER THE RISKS, ALTERNATIVES, AND BENEFITS ASSOCIATED WITH THIS PROCEDURE. I DISCUSSED THAT THE USE OF STEROIDS MAY CONTRIBUTE TO IMMUNOSUPPRESSION OF THE PATIENT'S BODY AGAINST INFECTIONS SUCH COVID-19. THE PATIENT IS AWARE OF THE POTENTIAL COMPLICATIONS ASSOCIATED WITH THIS VIRUS, INCLUDING, BUT NOT LIMITED TO, . THE PATIENT WOULD LIKE TO PROCEED AND GIVES CONSENT TO PERFORM THE PROCEDURE. THE PATIENT DENIES UNEXPLAINABLE WEIGHT LOSS, FEVER, CHILLS, OR NEW CHANGES IN URINARY OR BOWEL CONTROL. THE PATIENT IS COVID-19 NEGATIVE. THE PATIENT HAS A LUMBARIZATION OF THE FIRST SACRAL SEGMENT DESCRIPTION OF PROCEDURE THE PATIENT WAS BROUGHT TO THE PROCEDURE ROOM AND PLACED IN THE PRONE POSITION. THE LUMBOSACRAL AREA WAS CLEANED WITH CHLORAPREP SOLUTION AND DRAPED ASEPTICALLY. THE PROCEDURE WAS DONE UNDER STERILE CONDITIONS. A TIMEOUT WAS PERFORMED WHERE LATERALITY AND THE SITE OF THE PROCEDURE WERE CHECKED AND CONFIRMED WITH EVERYONE IN THE ROOM. UNDER FLUOROSCOPIC GUIDANCE, THE TARGET POINT WAS SELECTED AT THE RIGHT AND LEFT L4-L5 AND RIGHT AND LEFT L5-S1 FACET JOINTS. TARGET POINT WAS SELECTED AFTER LATERAL ROTATION AND TILT OF THE MAGNIFIER OF THE C-ARM. I CONFIRMED AGAIN WITH EVERYONE IN THE ROOM THE LATERALITY OF THE TARGET AT 1118. LIDOCAINE 0.5% WAS USED TO NUMB THE SKIN AND THE SUBCUTANEOUS TISSUE BELOW IT. SPINAL NEEDLES, 22-GAUGE, WERE ADVANCED UNDER FLUOROSCOPIC GUIDANCE AND FOLLOWING PATIENT FEEDBACK UNTIL THE TARGETS WERE TOUCHED. THE POSITION OF THE NEEDLES WAS VERIFIED WITH AP AND LATERAL VIEWS. AFTER PROPER POSITION OF THE NEEDLES WAS ACHIEVED, ISOVUE-M DYE 30%, 0.1 ML, WAS INJECTED SHOWING ADEQUATE SPREAD OF THE DYE. KENALOG 20 MG WAS INJECTED AT EACH SITE. THEN, A SOLUTION OF 1.0 ML OF BUPIVACAINE 0.125% OF WAS USED TO FLUSH EACH SITE. THE MEDICATION WAS VERIFIED WITH THE NURSE. THERE WAS NO EVIDENCE OF BLOOD, PARESTHESIA OR CEREBROSPINAL FLUID DURING THE PROCEDURE. THE PATIENT WAS SENT TO THE RECOVERY ROOM. THE PATIENT WAS MOVING THE EXTREMITIES AND DOING WELL. THERE WERE NO COMPLICATIONS DURING THE PROCEDURE. ESTIMATED BLOOD LOSS WAS LESS THAN 5 ML. FLUOROSCOPY TIME WAS 13 SECONDS POST PROCEDURE NOTE THE PATIENT WILL BE SEEN IN A FOLLOW UP IN THE NEXT FEW WEEKS. I AM LOOKING FOR LONG LASTING RELIEF FOR THE PATIENT WITH THIS INTERVENTION. INSTRUCTIONS WERE GIVEN, QUESTIONS WERE ANSWERED, AND THE PATIENT EXPRESSED UNDERSTANDING AND AGREES WITH THE PLAN. I, YAMILETH PALMER, DOCUMENTED THE ABOVE INFORMATION ACTING A SCRIBE FOR DR. SMITH. I HAVE REVIEWED THE ABOVE DOCUMENT, WRITTEN BY YAMILETH PALMER, STRAIGHTEDGE WORKER, AND I VERIFY THAT IT IS ACCURATE PROCEDURE CODES 94117 INJ PARAVERT F JNT L/S 1 LEV, MODIFIERS: 50 32125 INJ PARAVERT F JNT L/S 2 LEV, MODIFIERS: 50 DISPOSITION & COMMUNICATION FOLLOW UP FOLLOW UP WITH SENIOR SHIPPING CLERK (REASON: POST BILATERAL THERAPEUTIC FACET BLOCK L4-L5, L5-S1 ) ELECTRONICALLY SIGNED BY HORACIO SMITH MD, MD ON 09/07/2020 AT 11:01 AM EST DISCLAIMER : THIS IS A VISIT SUMMARY EXTRACTED FROM THE [employer] CHART. IT IS NOT A COPY OF THE [employer] PROGRESS NOTE. MTDD
== END ==
LOC: M PAIN 09:30
PROVIDERS: ATTEND Anesthesiology
DX: M47.816 Spondylosis without myelopathy or radiculopathy, lumbar region (principal); M47.817 Spondylosis without myelopathy or radiculopathy, lumbosacral region; E55.9 Vitamin D deficiency, unspecified; J45.909 Unspecified asthma, uncomplicated; Z88.1 Allergy status to other antibiotic agents; Z88.6 Allergy status to analgesic agent; E66.01 Morbid (severe) obesity due to excess calories; Z68.41 Body mass index [BMI] 40.0-44.9, adult; Z79.01 Long term (current) use of anticoagulants; Z79.899 Other long term (current) drug therapy
CPT/HCPCS: 64493; 64494; J3301; Q9967

== ENCOUNTER → 2020-09-08 | Outpatient (REF) | payer BC, MEDICARE ==
[~2020-09-08] MED LIST changes: -BUPIVACAINE HCL 0.25% 30ML VIAL As Ordered ONE; -ISOVUE-M 300 61% 15ML VIAL As Ordered ONE; -LIDOCAINE 1% SDV 30ML VIAL As Ordered ONE; -TRIAMCINOLONE ACETONIDE SUSP 40 MG/ML VIAL (J3301) As Ordered ONE; -diazePAM 2 MG TAB As Ordered ONE; -oxyCODONE 5MG TAB As Ordered ONE
[2020-09-09 13:49] LABS: ALBUMIN 3.6 GM/DL (3.2-5.2); BILIRUBIN,TOTAL 0.3 MG/DL (0.2-1.0); CALCIUM LEVEL 8.5 MG/DL (8.8-10.2); CREATININE FOR GFR 1.42 MG/DL (0.55-1.30); GLOMERULAR FILTRATION RATE 38.8 (>39); POTASSIUM SERUM 5.6 MEQ/L (3.5-5.1)
== END ==
LOC: M SFHCADAM 15:21
PROVIDERS: ATTEND Physician Assistant
DX: E87.5 Hyperkalemia (principal); R74.01 Elevation of levels of liver transaminase levels

== ENCOUNTER → 2020-09-19 | Outpatient (CLI) | payer BC, MEDICARE ==
--- NOTE | 2020-09-20 03:28 | ECWPNPC ---
PATIENT NAME: ROBIN NGUYỄN : 1950 GENDER: FEMALE VISIT DATE: 09/19/2020 DISCHARGE DATE: 09/19/20 1204 VISIT LOCKED DATE TIME: PHYSICIAN: BUDDY BILLINGSLEY PHYSICIAN PAGER NO: ACTIVE RESOURCE: BUDDY BILLINGSLEY REASON FOR APPOINTMENT 1. POST BILATERAL L4-5, L5-S1 THERAPEUTIC FACET BLOCK WITH KENALOG HISTORY OF PRESENT ILLNESS FALL RISK SCREENING: SCREENING :NO FALLS REPORTED IN THE LAST YEAR NONE GENERAL -HERE FOR POST PROCEDURE FOLLOW-UP. HAD BILATERAL L4-5 L5-S1 LUMBAR THERAPEUTIC BLOCK ON 09/05/2020. REPORTS MARKED IMPROVEMENT IN PAIN THAT CONTINUES TODAY.. PAIN SCREENING: PATIENT HAS A COMPLAINT OF ACUTE OR CHRONIC PAIN :YES LOCATION OF PAIN:LOW BACK INTENSITY OF PAIN (SCALE OF 1 TO 10):2 WHAT DOES YOUR PAIN FEEL LIKE:ACHING DURATION:CONTINOUS PAIN IS INCREASED BY:ACTIVITIES PAIN IS DECREASED BY:SITTING NURSING NOTE: -. PAIN CENTER INTAKE QUESTIONS: DO YOU HAVE A HISTORY OF MRSA? :NO DO YOU TAKE A BLOOD THINNERS? :YES ELIQUIS DO YOU HAVE ANY BLEEDING DISORDERS? :NO ANY NEW NUMBNESS OR WEAKNESS IN YOUR LEGS OR ARMS? :NO ANY PACEMAKER,DEFIBRILLATOR, OR DORSAL COLUMN STIMULATOR? :NO DO YOU HAVE ANY RASHES OR OPEN SORES? :YES PSORIAS RASH ARE YOU ALLERGIC TO IV DYE? :NO ARE YOU DIABETIC? :NO ANY NEW PROBLEMS WITH YOUR MEDICATIONS? :NO HAVE YOU RECEIVED A VACCINE IN THE PAST 30 DAYS? :YES IF SO WHAT VACCINE AND WHEN? FLU VACCINE APPROX ONE MONTH AGO DO YOU PLAN TO RECEIVE A VACCINE IN THE NEXT 21 DAYS? :NO DO YOU NEED ANY PRESCRIPTION? :NO DO YOU TAKE ANY IMMUNOSUPPRESSIVE MEDICATIONS? :NO IS THERE A CHANCE YOU COULD BE ? :NO ARE YOU BREAST FEEDING? :NO CURRENT MEDICATIONS TAKING LISINOPRIL 40 MG TABLET 1 TABLET ORALLY ONCE A DAY TAKING VERAPAMIL HCL 240 MG TABLET EXTENDED RELEASE 1 TABLET EVERY MORNING WITH FOOD ORALLY ONCE A DAY TAKING ALBUTEROL 90 MCG/ACT AEROSOL SOLUTION 2 PUFFS INHALATION EVERY 4 HOURS NEEDED TAKING FLONASE 50 MCG/ACT SUSPENSION 2 SPRAYS IN EACH NOSTRIL NASALLY DAILY TAKING CETIRIZINE HCL 10 MG TABLET 1 TABLET ORALLY ONCE A DAY TAKING CALTRATE 600+D 600-400 MG-UNIT TABLET 1 TABLET ORALLY TWICE A DAY TAKING MAGNESIUM 400 MG TABLET 1 TABLETS WITH A MEAL ORALLY ONCE A DAY TAKING ACETAMINOPHEN EXTRA STRENGTH 500 MG TABLET 2 TABS ORALLY EVERY 8 HOURS NEEDED FOR PAIN TAKING TRIAMCINOLONE ACETONIDE 0.1 % CREAM 1 APPLICATION EXTERNALLY TWO TIMES A WEEK TAKING MULTIVITAMIN ADULTS - TABLET 1 TABLET ORALLY DAILY TAKING VITAMIN C 500 MG CAPSULE 1 TABLET ORALLY ONCE A DAY TAKING FUROSEMIDE 40 MG TABLET TAKE ONE TABLET BY MOUTH TWICE A DAY TAKING DRISDOL 68011 UNIT CAPSULE 1 CAPSULE ORALLY ONCE A MONTH TAKING ELIQUIS 5 MG TABLET 1 TABLET ORALLY TWICE A DAY TAKING DOXYCYCLINE HYCLATE 100 MG TABLET 1 TABLET ORALLY ONCE A DAY NOT-TAKING LISINOPRIL 40 MG TABLET TAKE ONE TABLET BY MOUTH EVERY DAY , NOTES: DUPLICATE MEDICATION LIST REVIEWED AND RECONCILED WITH THE PATIENT PAST MEDICAL HISTORY ATRIAL FIBRILLATION HYPERTENSION EDEMA VITAMIN D DEFICIENCY ASTHMA OSTEOARTHRITIS PSORIASIS 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 HISTORY OF SEIZURE X 1 AFTER 1981 ALLERGIES ASPIRIN: SNEEZING AND COUGHING - SIDE EFFECTS KEFLEX: THRUSH AND SWOLLEN TONGUE - SIDE EFFECTS NAPROXEN: WHEEZING, SHORTNESS OF BREATH SURGICAL HISTORY SURGERY ON LEFT GREAT TOE 1976 1981 FASET BLOCK ON BACK 09/05/2020 FAMILY HISTORY FATHER: MOTHER: 58 YRS, DIAGNOSED WITH DIABETES SOCIAL HISTORY GENERAL: TOBACCO USE ARE YOU A:NONSMOKER , NEVER SMOKER LATEX QUESTIONNAIRE LATEX ALLERGY : HAVE YOU EVER DEVELOPED ANY TYPE OF REACTION AFTER HANDLING LATEX PRODUCTS SUCH RUBBER GLOVES, CONDOMS, DIAPHRAGMS, BALLOONS, SOCKS, OR UNDERWEAR?NO LATEX ALLERGY : HAVE YOU EVER DEVELOPED ANY TYPE OF REACTION DURING OR AFTER DENTAL APPOINTMENT, VAGINAL/RECTAL EXAMINATION, SURGICAL PROCEDURE, OR ANY OTHER EXPOSURE?NO LATEX RISK : HAVE YOU EVER HAD ANY DIFFICULTY BREATHING OR HIVES AFTER EATING OR HANDLING ANY FRUITS, OR VEGETABLES; SUCH KIWI, BANANAS, STONE FRUITS, OR CHESTNUTSNO LATEX RISK : DO YOU HAVE A PREVIOUS PERSONAL HISTORY OF MORE THAN NINE SURGERIES, SPINA BIFIDA, OR REPEATED CATHERIZATIONS? NO LATEX RISK : ARE YOU FREQUENTLY EXPOSED TO LATEX PRODUCTS IN YOUR OCCUPATION?NO DATE ASKED : 09/06/2020 LUNG CANCER SCREENING SMOKING STATUS:NON SMOKER BMI CARE GOAL FOLLOW-UP ABOVE NORMAL BMI FOLLOW-UPDIETARY MANAGEMENT EDUCATION, GUIDANCE, AND COUNSELING ALCOHOL SCREENING DID YOU HAVE A DRINK CONTAINING ALCOHOL IN THE PAST YEAR?NO POINTS0 INTERPRETATIONNEGATIVE RECREATIONAL DRUG USE DENIES. CAFFEINE CAFFEINE USE?YES HOW OFTEN AND HOW MUCH? ONE CUP OF COFFEE A DAY SEXUAL HX HAD SEX IN THE LAST 12 MONTHS (VAGINAL, ORAL, OR ANAL)?YES HAVE YOU EVER HAD AN STD?NO HIV / HEP-C SCREENING HIV TEST OFFERED TO PATIENT:YES DATE OFFERED:01/08/2017 TEST ACCEPTED:NO HEP-C TEST OFFERED TO PATIENT:YES DATE OFFERED:01/08/2017 REASON:PATIENT DECLINED TEST ACCEPTED:NO REASON:PATIENT DECLINED AMISH [id number] NONE LANGUAGE CZECH. 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 EXERCISE: WALKS. MARITAL STATUS: . OTHERS AT HOME: SPOUSE. PAIN CLINIC PFS, CLERGY, PUBLIC HEALTH REFERRALS WAS THE PROVIDER NOTIFIED OF ANY PERTINENT INFO?YES HAS THE PATIENT BEEN EDUCATED REGARDING HIS/HER PLAN OF CARE?YES HAS THE PATIENT BEEN EDUCATED REGARDING PAIN, THE RISK FOR PAIN, THE IMPORTANCE OF EFFECTIVE PAIN MANAGEMENT, AND THE PAIN ASSESSMENT PROCESS?YES PROCEDURE APPT, IV, PO SEDATION ADVANCE DIRECTIVE ADVANCE DIRECTIVE DISCUSSED WITH PATIENT:YES PATIENT HAS NO ADVANCED DIRECTIVE, INFORMATION ON HCP OFFERED AND DECLINED. HOSPITALIZATION/MAJOR DIAGNOSTIC PROCEDURE SURGERIES ABOVE CELLULITIS IN LEFT LEG 06/2019 CELLULITIS LEFT LEG 02/2020 REVIEW OF SYSTEMS CONSTITUTIONAL: ANY RECENT FEVER NO . CHILLS NO . WEIGHT CHANGE OF UNKNOWN REASONS NO . GASTROENTEROLOGY: NEW UNEXPLAINABLE CHANGES IN BOWEL CONTROL NO . CONSTIPATION NO . GENITOURINARY: ANY NEW CHANGE IN BLADDER CONTROL? NO . NEUROLOGY: NEW ONSET DIZZINESS OR NEUROLOGICAL CHANGES NOT MENTIONED NO . NEW NUMBNESS OR PAIN PATTERNS NOT MENTIONED AND PERTINENT TO TODAY'S VISIT NO . CARDIOLOGY: NEW CHEST PRESSURE NO . NEW CHEST PAIN NO . RESPIRATORY: UNEXPLAINABLE COUGH NO . NEW SHORTNESS OF BREATH NO . VITAL SIGNS WT 252.2 LBS, HT 63.50 IN, BMI 43.97 INDEX, BP 131/60 MM HG, HR 91 /MIN, RR 18 /MIN, TEMP 96.7 F, OXYGEN SAT % 97%, SAFE IN ENV? (Y/N) YES, NA INITIALS AW 1123, REVIEWED BY: DANNI GARCIA. EXAMINATION GENERAL EXAMINATION: GENERALAWAKE,ALERT ,PLEASANT . PSYCHAFFECT NORMAL . LUNGS:LUNG PRICE ARE CLEAR TO AUSCULTATION BILATERALLY. GOOD MOVEMENT OF AIR . HEART:S1, S2 IN A REGULAR RATE AND RHYTHM. NO SIGNIFICANT MURMURS, RUBS OR GALLOPS NOTED . ASSESSMENTS SPONDYLOSIS OF LUMBOSACRAL REGION WITHOUT MYELOPATHY OR RADICULOPATHY - M47.817 (PRIMARY) OTHER CHRONIC PAIN - G89.29 TREATMENT OTHER CHRONIC PAIN PAIN PROCEDURE LOGDATE OF [id number]/7/2020PROCEDURE:BILATERAL L4-5, L5-S1 LUMBAR FACET THERAPEUTIC BLOCKAMOUNT OF PRE SEDATEVALIUM 2MG - OXYCODONE 5MGRESULT:IMPROVEMENT CONTINUES TODAY PROCEDURE CODES FA211 ESTABILISHED PATIENT [facility] CHARGE DISPOSITION & COMMUNICATION FOLLOW UP 3 MONTHS (REASON: LOW BACK PAIN/RESPONDS WELL TO LUMBAR THERAPEUTIC FACET BLOCKS) ELECTRONICALLY SIGNED BY SHARLENE MONTERROSO ON 09/19/2020 AT 02:45 PM EST DISCLAIMER : THIS IS A VISIT SUMMARY EXTRACTED FROM THE [facility] CHART. IT IS NOT A COPY OF THE [facility] PROGRESS NOTE. YURY
== END ==
LOC: M PAIN 11:15
PROVIDERS: ATTEND Nurse Practitioner Family
DX: M47.817 Spondylosis without myelopathy or radiculopathy, lumbosacral region (principal); G89.29 Other chronic pain; E55.9 Vitamin D deficiency, unspecified; J45.909 Unspecified asthma, uncomplicated; Z88.1 Allergy status to other antibiotic agents; Z88.6 Allergy status to analgesic agent; E66.01 Morbid (severe) obesity due to excess calories; Z68.41 Body mass index [BMI] 40.0-44.9, adult; Z79.01 Long term (current) use of anticoagulants; Z79.899 Other long term (current) drug therapy

== ENCOUNTER → 2020-10-21 | Outpatient (CLI) | payer BC, MEDICARE ==
[~2020-10-21] MED LIST changes: -CLIN150C14 PO; +CLIN150C15 PO; -LISI40TA PO; +LISI40TA4 PO
--- NOTE | 2020-10-23 18:08 | REP ---
INDICATION: VENOUS INSUFFICIENCY COMPARISON: None. TECHNIQUE: Arnold scale and color Doppler evaluation of the bilateral lower extremities using linear high frequency transducer including reflux evaluation. FINDINGS: Ultrasound examination of the right and left lower extremity deep venous structures from the common femoral vein to the popliteal vein demonstrates normal compressibility flow and wave patterns in response to respiration and augmentation. There is no evidence for deep venous thrombosis. Right lower extremity demonstrates minimal reflux involving the deep system with the bed tipped only. No evidence for reflux through the superficial system. Left lower extremity demonstrates minimal reflux involving the deep system with the bed tipped and standing. No evidence for reflux through the superficial system. IMPRESSION: No evidence for deep venous thrombosis. No evidence for reflux through the superficial venous system bilaterally. <Electronically signed by David Tirado > 10/23/20 2838
== END ==
LOC: M RAD 11:30
PROVIDERS: ATTEND Surgery Vascular Surgery
DX: I87.2 Venous insufficiency (chronic) (peripheral) (principal)

== ENCOUNTER → 2020-12-19 | Outpatient (CLI) | payer BC ==
--- NOTE | 2020-12-21 08:29 | ECWPNPC ---
PATIENT NAME: ROBIN NGUYỄN : 1950 GENDER: FEMALE VISIT DATE: 12/19/2020 DISCHARGE DATE: 12/19/20 1159 VISIT LOCKED DATE TIME: PHYSICIAN: BUDDY BILLINGSLEY PHYSICIAN PAGER NO: ACTIVE RESOURCE: BUDDY BILLINGSLEY REASON FOR APPOINTMENT 1. LOW BACK PAIN/RESPONDS WELL TO LUMBAR THERAPEUTIC FACET BLOCKS HISTORY OF PRESENT ILLNESS GENERAL: -. FALL RISK SCREENING: SCREENING : NO FALLS REPORTED IN THE LAST YEAR. PAIN SCREENING: PATIENT HAS A COMPLAINT OF ACUTE OR CHRONIC PAIN :YES LOCATION OF PAIN:LOW BACK INTENSITY OF PAIN (SCALE OF 1 TO 10):6 WHAT DOES YOUR PAIN FEEL LIKE:ACHING, SORE DURATION:CONTINOUS, CONSTANT, ALL DAY PAIN IS INCREASED BY:ACTIVITIES, PROLONGED STANDING PAIN IS DECREASED BY:USE OF PAIN MEDICATIONS, OTHERS HEATING PACK NURSING NOTE: -. PAIN CENTER INTAKE QUESTIONS: HERE FOR FOLLOW-UP OF CHRONIC LOW BACK PAIN. PAIN IS BEGINNING TO INCREASE ACROSS HER LOWER BACK. HAS RESPONDED WELL TO THERAPEUTIC LUMBAR FACET BLOCKS IN THE PAST. WE DISCUSSED TREATMENT OPTIONS. I REVIEWED LUMBAR MRI. PAIN IS AGGRAVATED BY PROLONGED STANDING OR SITTING. DO YOU HAVE A HISTORY OF MRSA? :NO DO YOU TAKE A BLOOD THINNERS? :YES ELIQUIS DO YOU HAVE ANY BLEEDING DISORDERS? :NO ANY NEW NUMBNESS OR WEAKNESS IN YOUR LEGS OR ARMS? :NO ANY PACEMAKER,DEFIBRILLATOR, OR DORSAL COLUMN STIMULATOR? :NO DO YOU HAVE ANY RASHES OR OPEN SORES? :YES PSORIAS RASH ARE YOU ALLERGIC TO IV DYE? :NO ARE YOU DIABETIC? :NO ANY NEW PROBLEMS WITH YOUR MEDICATIONS? :NO HAVE YOU RECEIVED A VACCINE IN THE PAST 30 DAYS? :NO DO YOU PLAN TO RECEIVE A VACCINE IN THE NEXT 21 DAYS? :NO DO YOU NEED ANY PRESCRIPTION? :NO DO YOU TAKE ANY IMMUNOSUPPRESSIVE MEDICATIONS? :NO IS THERE A CHANCE YOU COULD BE ? :NO ARE YOU BREAST FEEDING? :NO CURRENT MEDICATIONS TAKING LISINOPRIL 40 MG TABLET 1 TABLET ORALLY ONCE A DAY TAKING VERAPAMIL HCL 240 MG TABLET EXTENDED RELEASE 1 TABLET EVERY MORNING WITH FOOD ORALLY ONCE A DAY TAKING ELIQUIS 5 MG TABLET 1 TABLET ORALLY TWICE A DAY TAKING ALBUTEROL 90 MCG/ACT AEROSOL SOLUTION 2 PUFFS INHALATION EVERY 4 HOURS NEEDED TAKING FLONASE 50 MCG/ACT SUSPENSION 2 SPRAYS IN EACH NOSTRIL NASALLY DAILY TAKING CETIRIZINE HCL 10 MG TABLET 1 TABLET ORALLY ONCE A DAY TAKING DRISDOL 79890 UNIT CAPSULE 1 CAPSULE ORALLY ONCE A MONTH TAKING CALTRATE 600+D 600-400 MG-UNIT TABLET 1 TABLET ORALLY TWICE A DAY TAKING MAGNESIUM 400 MG TABLET 1 TABLETS WITH A MEAL ORALLY ONCE A DAY TAKING ACETAMINOPHEN EXTRA STRENGTH 500 MG TABLET 2 TABS ORALLY EVERY 8 HOURS NEEDED FOR PAIN TAKING TRIAMCINOLONE ACETONIDE 0.1 % CREAM 1 APPLICATION EXTERNALLY TWO TIMES A WEEK TAKING MULTIVITAMIN ADULTS - TABLET 1 TABLET ORALLY DAILY TAKING VITAMIN C 500 MG CAPSULE 1 TABLET ORALLY ONCE A DAY TAKING AMOXICILLIN-POT CLAVULANATE 875-125 MG TABLET 1 TABLET ORALLY TWICE A DAY TAKING LISINOPRIL 40 MG TABLET TAKE ONE TABLET BY MOUTH EVERY DAY TAKING FUROSEMIDE 40 MG TABLET TAKE ONE TABLET BY MOUTH TWICE A DAY NOT-TAKING DOXYCYCLINE HYCLATE 100 MG TABLET 1 TABLET ORALLY ONCE A DAY MEDICATION LIST REVIEWED AND RECONCILED WITH THE PATIENT PAST MEDICAL HISTORY ATRIAL FIBRILLATION HYPERTENSION EDEMA VITAMIN D DEFICIENCY ASTHMA OSTEOARTHRITIS PSORIASIS 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 HISTORY OF SEIZURE X 1 AFTER 1981 ALLERGIES ASPIRIN: SNEEZING AND COUGHING - SIDE EFFECTS KEFLEX: THRUSH AND SWOLLEN TONGUE - SIDE EFFECTS NAPROXEN: WHEEZING, SHORTNESS OF BREATH SURGICAL HISTORY SURGERY ON LEFT GREAT TOE 1976 1981 FASET BLOCK ON BACK 09/05/2020 BOTH EYES 10/2020 SOCIAL HISTORY GENERAL: TOBACCO USE ARE YOU A:NONSMOKER , NEVER SMOKER LATEX QUESTIONNAIRE LATEX ALLERGY : HAVE YOU EVER DEVELOPED ANY TYPE OF REACTION AFTER HANDLING LATEX PRODUCTS SUCH RUBBER GLOVES, CONDOMS, DIAPHRAGMS, BALLOONS, SOCKS, OR UNDERWEAR?NO LATEX ALLERGY : HAVE YOU EVER DEVELOPED ANY TYPE OF REACTION DURING OR AFTER DENTAL APPOINTMENT, VAGINAL/RECTAL EXAMINATION, SURGICAL PROCEDURE, OR ANY OTHER EXPOSURE?NO LATEX RISK : HAVE YOU EVER HAD ANY DIFFICULTY BREATHING OR HIVES AFTER EATING OR HANDLING ANY FRUITS, OR VEGETABLES; SUCH KIWI, BANANAS, STONE FRUITS, OR CHESTNUTSNO LATEX RISK : DO YOU HAVE A PREVIOUS PERSONAL HISTORY OF MORE THAN NINE SURGERIES, SPINA BIFIDA, OR REPEATED CATHERIZATIONS? NO LATEX RISK : ARE YOU FREQUENTLY EXPOSED TO LATEX PRODUCTS IN YOUR OCCUPATION?NO DATE ASKED : 12/19/2020 ALCOHOL USE: NO. LUNG CANCER SCREENING SMOKING STATUS:NON SMOKER BMI CARE GOAL FOLLOW-UP ABOVE NORMAL BMI FOLLOW-UPDIETARY MANAGEMENT EDUCATION, GUIDANCE, AND COUNSELING ALCOHOL SCREENING DID YOU HAVE A DRINK CONTAINING ALCOHOL IN THE PAST YEAR?NO POINTS0 INTERPRETATIONNEGATIVE RECREATIONAL DRUG USE DENIES. CAFFEINE CAFFEINE USE?YES HOW OFTEN AND HOW MUCH? ONE CUP OF COFFEE A DAY SEXUAL HX HAD SEX IN THE LAST 12 MONTHS (VAGINAL, ORAL, OR ANAL)?YES HAVE YOU EVER HAD AN STD?NO HIV / HEP-C SCREENING HIV TEST OFFERED TO PATIENT:YES DATE OFFERED:01/08/2017 TEST ACCEPTED:NO HEP-C TEST OFFERED TO PATIENT:YES DATE OFFERED:01/08/2017 REASON:PATIENT DECLINED TEST ACCEPTED:NO REASON:PATIENT DECLINED YAZIDI [id number] NONE LANGUAGE [place]. 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 EXERCISE: WALKS. MARITAL STATUS: . OTHERS AT HOME: SPOUSE. - WAS THE PROVIDER NOTIFIED OF ANY PERTINENT INFO?YES HAS THE PATIENT BEEN EDUCATED REGARDING HIS/HER PLAN OF CARE?YES HAS THE PATIENT BEEN EDUCATED REGARDING PAIN, THE RISK FOR PAIN, THE IMPORTANCE OF EFFECTIVE PAIN MANAGEMENT, AND THE PAIN ASSESSMENT PROCESS?YES PROCEDURE APPT, IV, PO SEDATION ADVANCE DIRECTIVE ADVANCE DIRECTIVE DISCUSSED WITH PATIENT:YES PATIENT HAS NO ADVANCED DIRECTIVE, INFORMATION ON HCP OFFERED AND DECLINED. HOSPITALIZATION/MAJOR DIAGNOSTIC PROCEDURE SURGERIES ABOVE CELLULITIS IN LEFT LEG 06/2019 CELLULITIS LEFT LEG 02/2020 BOTH EYES 10/2020 REVIEW OF SYSTEMS CONSTITUTIONAL: ANY RECENT FEVER NO . CHILLS NO . WEIGHT CHANGE OF UNKNOWN REASONS NO . GASTROENTEROLOGY: NEW UNEXPLAINABLE CHANGES IN BOWEL CONTROL NO . CONSTIPATION NO . GENITOURINARY: ANY NEW CHANGE IN BLADDER CONTROL? NO . NEUROLOGY: NEW ONSET DIZZINESS OR NEUROLOGICAL CHANGES NOT MENTIONED NO . NEW NUMBNESS OR PAIN PATTERNS NOT MENTIONED AND PERTINENT TO TODAY'S VISIT NO . CARDIOLOGY: NEW CHEST PRESSURE NO . PATIENT DENIES NO . RESPIRATORY: UNEXPLAINABLE COUGH NO . NEW SHORTNESS OF BREATH NO . VITAL SIGNS WT 257 LBS, HT 63.50 IN, BMI 44.81 INDEX, BP 114/56 MM HG, HR 70 /MIN, RR 18 /MIN, TEMP 96.7 F, OXYGEN SAT % 98%, SAFE IN ENV? (Y/N) YEST.NEDA GARCIA. EXAMINATION GENERAL EXAMINATION: GENERALALERT. PSYCHAFFECT NORMAL. NECK:TRACHEA MIDLINE. NO CERVICAL OR SUPRACLAVICULAR LYMPHADENOPATHY NOTED. LUNGS:LUNG PRICE ARE CLEAR TO AUSCULTATION BILATERALLY. GOOD MOVEMENT OF AIR. HEART:S1, S2 IN A REGULAR RATE AND RHYTHM. NO SIGNIFICANT MURMURS, RUBS OR GALLOPS NOTED. MUSCULOSKELETAL:3/5 RIGHT-5/5LEFT MST. LUMBAR:INSPECTION-PSORIATIC PLAQUES LUMBAR SPINE/PARASPINAL , PALPATION: + FOR PAIN OVER L/S SPINE. + FOR PAIN OVER L/S PARSPINALS SPECIFIC POINT TENDERNESS OVER BILAT. L4-5, L5-S1 LUMBAR FACETS. DIAGNOSTIC TESTS REVIEWEDMRI L/S [id number]-[id number]. ASSESSMENTS SPONDYLOSIS OF LUMBOSACRAL REGION WITHOUT MYELOPATHY OR RADICULOPATHY - M47.817 (PRIMARY) TREATMENT SPONDYLOSIS OF LUMBOSACRAL REGION WITHOUT MYELOPATHY OR RADICULOPATHY NOTES: BILATERAL THERAPEUTIC LUMBAR FACET BLOCK L4-5,L5-S1/MED HOLD PRINTED AND REVIEWED PRE PROCEDURE WITH PATIENT VLAD GARCIA. PROCEDURE CODES FA211 ESTABILISHED PATIENT [facility] CHARGE DISPOSITION & COMMUNICATION FOLLOW UP POST PROCEDURE (REASON: BILATERAL THERAPEUTIC LUMBAR FACET BLOCK L4-5,L5-S1/MED HOLD) ELECTRONICALLY SIGNED BY SHARLENE MONTERROSO ON 12/20/2020 AT 04:15 PM EDT DISCLAIMER : THIS IS A VISIT SUMMARY EXTRACTED FROM THE [employer] CHART. IT IS NOT A COPY OF THE [employer] PROGRESS NOTE. YURY
== END ==
LOC: M PAIN 11:15
PROVIDERS: ATTEND Nurse Practitioner Family
DX: M47.817 Spondylosis without myelopathy or radiculopathy, lumbosacral region (principal); G89.29 Other chronic pain; E55.9 Vitamin D deficiency, unspecified; J45.909 Unspecified asthma, uncomplicated; Z88.1 Allergy status to other antibiotic agents; Z88.6 Allergy status to analgesic agent; E66.01 Morbid (severe) obesity due to excess calories; Z68.41 Body mass index [BMI] 40.0-44.9, adult; Z79.01 Long term (current) use of anticoagulants; Z79.899 Other long term (current) drug therapy

== ENCOUNTER → 2021-01-18 | Outpatient (CLI) | payer BC | LOC: M LABSMTC 10:35 | PROVIDERS: ATTEND Anesthesiology | DX: Z01.812 Encounter for preprocedural laboratory examination (principal); Z20.822 Contact with and (suspected) exposure to COVID-19 ==

== ENCOUNTER → 2021-01-23 | Outpatient (CLI) | payer BC ==
[~2021-01-23] MED LIST changes: +BUPIVACAINE HCL 0.25% 30ML VIAL As Ordered ONE; +ISOVUE-M 300 61% 15ML VIAL As Ordered ONE; +LIDOCAINE 1% SDV 30ML VIAL As Ordered ONE; +TRIAMCINOLONE ACETONIDE SUSP 40 MG/ML VIAL (J3301) As Ordered ONE; +diazePAM 2 MG TAB As Ordered ONE; +oxyCODONE 5MG TAB As Ordered ONE
--- NOTE | 2021-01-23 11:38 | REP ---
INDICATION: PAIN. COMPARISON: None. TECHNIQUE: 2 views. 43.7 seconds of fluoroscopy time is reported. FINDINGS: A sequence of 2 last image hold fluoroscopically obtained spot radiograph(s) of the lumbar spine document(s) needle position(s) and contrast injection associated with injection procedure. IMPRESSION: Procedural imaging. <Electronically signed by Arslan Neff > 01/23/21 [id number]
--- NOTE | 2021-01-25 02:36 | ECWPNPC ---
PATIENT NAME: ROBIN NGUYỄN : 1950 GENDER: FEMALE VISIT DATE: 01/23/2021 DISCHARGE DATE: 01/23/21 1125 VISIT LOCKED DATE TIME: PHYSICIAN: HORACIO SMITH MD PHYSICIAN PAGER NO: ACTIVE RESOURCE: HORACIO SMITH MD REASON FOR APPOINTMENT 1. BILATERAL THERAPEUTIC LUMBAR FACET BLOCK L4-L5, L5-S1 HISTORY OF PRESENT ILLNESS GENERAL: -. FALL RISK SCREENING: SCREENING : NO FALLS REPORTED IN THE LAST YEAR. PAIN SCREENING: PATIENT HAS A COMPLAINT OF ACUTE OR CHRONIC PAIN :YES LOCATION OF PAIN:LOW BACK INTENSITY OF PAIN (SCALE OF 1 TO 10):7 WHAT DOES YOUR PAIN FEEL LIKE:ACHING, STABBING, SORE DURATION:CONTINOUS, CONSTANT PAIN IS INCREASED BY:ACTIVITIES, PROLONGED STANDING PAIN IS DECREASED BY:USE OF PAIN MEDICATIONS, OTHERS HEATING PACK PLAN/GOALS/TREATMENT/INTERVENTION/FOLLOW UP:SEE PLAN NURSING NOTE: -. PAIN CENTER INTAKE QUESTIONS: DO YOU HAVE A HISTORY OF MRSA? :NO DO YOU TAKE A BLOOD THINNERS? :YES ELIQUIS LAST DOSE: 01/19 DO YOU HAVE ANY BLEEDING DISORDERS? :NO ANY NEW NUMBNESS OR WEAKNESS IN YOUR LEGS OR ARMS? :NO ANY PACEMAKER,DEFIBRILLATOR, OR DORSAL COLUMN STIMULATOR? :NO DO YOU HAVE ANY RASHES OR OPEN SORES? :YES PSORIAS RASH ARE YOU ALLERGIC TO IV DYE? :NO ARE YOU DIABETIC? :NO ANY NEW PROBLEMS WITH YOUR MEDICATIONS? :NO HAVE YOU RECEIVED A VACCINE IN THE PAST 30 DAYS? :NO DO YOU PLAN TO RECEIVE A VACCINE IN THE NEXT 21 DAYS? :NO DO YOU NEED ANY PRESCRIPTION? :NO DO YOU TAKE ANY IMMUNOSUPPRESSIVE MEDICATIONS? :NO ANY HISTORY OF SEIZURES? :YES REMOTE H/O SEIZURES LAST REPORTED 1981. ANY HISTORY OF CARDIAC ISSUES OR EVENTS? :YES AFIB DO YOU HAVE ANY KIDNEY OR LIVER DISEASE? :NO DO YOU HAVE SLEEP APNEA? :NO ANY RECENT HEAD INJURY? :NO DO YOU HAVE ANY NEW INFECTIONS? :YES PATIENT REPORTS LLE CELLULITIS, REPORTS STARTING AMOXICILLIN LAST SATURDAY, LAST DOSE, 01/23. PATIENT REPORTS LEG IS NO LONGER RED AND DECREASE IN SWELLING. IS THERE A CHANCE YOU COULD BE ? :NO ARE YOU BREAST FEEDING? :NO WHEN DID YOU LAST EAT? : 01/22 1800 WHEN DID YOU LAST DRINK? : 01/22 07 WHAT DID YOU LAST DRINK? : WATER NAME OF PERSON DRIVING YOU HOME? : (ENDER) DO YOU HAVE ANY OTHER QUESTIONS OR CONCERNS? : NO CURRENT MEDICATIONS TAKING ELIQUIS 5 MG TABLET 1 TABLET ORALLY TWICE A DAY, NOTES: 01/19 TAKING ALBUTEROL 90 MCG/ACT AEROSOL SOLUTION 2 PUFFS INHALATION EVERY 4 HOURS NEEDED TAKING FLONASE 50 MCG/ACT SUSPENSION 2 SPRAYS IN EACH NOSTRIL NASALLY DAILY TAKING CETIRIZINE HCL 10 MG TABLET 1 TABLET ORALLY ONCE A DAY TAKING DRISDOL 10055 UNIT CAPSULE 1 CAPSULE ORALLY ONCE A MONTH TAKING CALTRATE 600+D 600-400 MG-UNIT TABLET 1 TABLET ORALLY TWICE A DAY TAKING MAGNESIUM 400 MG TABLET 1 TABLETS WITH A MEAL ORALLY ONCE A DAY TAKING ACETAMINOPHEN EXTRA STRENGTH 500 MG TABLET 2 TABS ORALLY EVERY 8 HOURS NEEDED FOR PAIN TAKING TRIAMCINOLONE ACETONIDE 0.1 % CREAM 1 APPLICATION EXTERNALLY TWO TIMES A WEEK TAKING MULTIVITAMIN ADULTS - TABLET 1 TABLET ORALLY DAILY TAKING VITAMIN C 500 MG CAPSULE 1 TABLET ORALLY ONCE A DAY TAKING LISINOPRIL 40 MG TABLET 1 TABLET ORALLY ONCE A DAY, NOTES: 01/23 730 TAKING VERAPAMIL HCL 240 MG TABLET EXTENDED RELEASE 1 TABLET ORALLY DAILY, NOTES: 01/22 TAKING FUROSEMIDE 40 MG TABLET TAKE ONE TABLET BY MOUTH TWICE A DAY , NOTES: 01/22 TAKING AMOXICILLIN-POT CLAVULANATE 875-125 MG TABLET 1 TABLET ORALLY TWICE A DAY, NOTES: LD: 01/23/21 NOT-TAKING LISINOPRIL 40 MG TABLET TAKE ONE TABLET BY MOUTH EVERY DAY , NOTES: DUPLICATE ENTRY NOT-TAKING DOXYCYCLINE HYCLATE 100 MG TABLET 1 TABLET ORALLY ONCE A DAY MEDICATION LIST REVIEWED AND RECONCILED WITH THE PATIENT PAST MEDICAL HISTORY ATRIAL FIBRILLATION HYPERTENSION EDEMA VITAMIN D DEFICIENCY ASTHMA OSTEOARTHRITIS PSORIASIS 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 HISTORY OF SEIZURE X 1 AFTER 1981 ALLERGIES ASPIRIN: SNEEZING AND COUGHING - SIDE EFFECTS KEFLEX: THRUSH AND SWOLLEN TONGUE - SIDE EFFECTS NAPROXEN: WHEEZING, SHORTNESS OF BREATH - ALLERGY SURGICAL HISTORY SURGERY ON LEFT GREAT TOE 1976 1981 FACET BLOCK ON BACK 09/05/2020 LEFT EYE CATARACTS REMOVAL 10/2020 RIGHT EYE CATARACTS REMOVAL 11/2020 FAMILY HISTORY FATHER: MOTHER: 58 YRS, DIAGNOSED WITH DIABETES SOCIAL HISTORY GENERAL: TOBACCO USE ARE YOU A:NONSMOKER , NEVER SMOKER LATEX QUESTIONNAIRE LATEX ALLERGY : HAVE YOU EVER DEVELOPED ANY TYPE OF REACTION AFTER HANDLING LATEX PRODUCTS SUCH RUBBER GLOVES, CONDOMS, DIAPHRAGMS, BALLOONS, SOCKS, OR UNDERWEAR?NO LATEX ALLERGY : HAVE YOU EVER DEVELOPED ANY TYPE OF REACTION DURING OR AFTER DENTAL APPOINTMENT, VAGINAL/RECTAL EXAMINATION, SURGICAL PROCEDURE, OR ANY OTHER EXPOSURE?NO LATEX RISK : HAVE YOU EVER HAD ANY DIFFICULTY BREATHING OR HIVES AFTER EATING OR HANDLING ANY FRUITS, OR VEGETABLES; SUCH KIWI, BANANAS, STONE FRUITS, OR CHESTNUTSNO LATEX RISK : DO YOU HAVE A PREVIOUS PERSONAL HISTORY OF MORE THAN NINE SURGERIES, SPINA BIFIDA, OR REPEATED CATHERIZATIONS? NO LATEX RISK : ARE YOU FREQUENTLY EXPOSED TO LATEX PRODUCTS IN YOUR OCCUPATION?NO DATE ASKED : 01/23/2021 ALCOHOL USE: NO. LUNG CANCER SCREENING SMOKING STATUS:NON SMOKER BMI CARE GOAL FOLLOW-UP ABOVE NORMAL BMI FOLLOW-UPDIETARY MANAGEMENT EDUCATION, GUIDANCE, AND COUNSELING ALCOHOL SCREENING DID YOU HAVE A DRINK CONTAINING ALCOHOL IN THE PAST YEAR?NO POINTS0 INTERPRETATIONNEGATIVE RECREATIONAL DRUG USE DENIES. CAFFEINE CAFFEINE USE?YES HOW OFTEN AND HOW MUCH? ONE CUP OF COFFEE A DAY SEXUAL HX HAD SEX IN THE LAST 12 MONTHS (VAGINAL, ORAL, OR ANAL)?YES HAVE YOU EVER HAD AN STD?NO HIV / HEP-C SCREENING HIV TEST OFFERED TO PATIENT:YES DATE OFFERED:01/08/2017 TEST ACCEPTED:NO HEP-C TEST OFFERED TO PATIENT:YES DATE OFFERED:01/08/2017 REASON:PATIENT DECLINED TEST ACCEPTED:NO REASON:PATIENT DECLINED YAZIDISM [id number] NONE LANGUAGE IRISH. 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 EXERCISE: WALKS. MARITAL STATUS: . OTHERS AT HOME: SPOUSE. - WAS THE PROVIDER NOTIFIED OF ANY PERTINENT INFO?YES HAS THE PATIENT BEEN EDUCATED REGARDING HIS/HER PLAN OF CARE?YES HAS THE PATIENT BEEN EDUCATED REGARDING PAIN, THE RISK FOR PAIN, THE IMPORTANCE OF EFFECTIVE PAIN MANAGEMENT, AND THE PAIN ASSESSMENT PROCESS?YES PROCEDURE APPT, IV, PO SEDATION ADVANCE DIRECTIVE ADVANCE DIRECTIVE DISCUSSED WITH PATIENT:YES PATIENT HAS NO ADVANCED DIRECTIVE, INFORMATION ON HCP OFFERED AND DECLINED. HOSPITALIZATION/MAJOR DIAGNOSTIC PROCEDURE SURGERIES ABOVE CELLULITIS IN LEFT LEG 06/2019 CELLULITIS LEFT LEG 02/2020 BOTH EYES 10/2020 VITAL SIGNS WT 258.8 LBS, HT 63.50 IN, BMI 45.12 INDEX, BP 141/63 MM HG, HR 77 /MIN, RR 18 /MIN, TEMP 96.9 F, OXYGEN SAT % 97%, SAFE IN ENV? (Y/N) YES, NA INITIALS SC 09:20, REVIEWED BY: DAPHNE FUNG. EXAMINATION GENERAL: A HISTORY AND PHYSICAL EXAM ON THE PATIENT WAS DONE ON 12/19/2020 (DATE OF ORIGINAL ASSESSMENT) IN PREPARATION OF SURGERY/PROCEDURE. I HAVE NOW REASSESSED THIS PATIENT'S HEALTH STATUS AND PERFORMED AN UPDATED EXAM TODAY. ALL CHANGES IN THE PATIENT'S HISTORY, PHYSICAL EXAM, PRE-EXISTING CONDITONS, AND INDICATIONS/CONTRAINDICATIONS TO THE PLANNED PROCEDURE AND ANESTHESIA ARE DOCUMENTED AND EVALUATED BELOW. I ATTEST TO THE ADEQUACY AND APPROPRIATENESS OF MY ASSESSMENT, AND CONFIRM THE NECESSITY FOR THE PLANNED PROCEDURE. THE PATIENT IS ALERT, ORIENTED TIMES THREE AND COOPERATIVE. LUNGS ARE CLEAR TO AUSCULTATION. HEART SHOWS REGULAR RHYTHM, NO MURMURS AND NO GALLOPS. 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 RADICULOPATHY, LUMBOSACRAL REGION - M47.817 TREATMENT SPONDYLOSIS WITHOUT MYELOPATHY OR RADICULOPATHY, LUMBAR REGION [facility] FACET BLOCK (PAIN)[id number] MEDICATION: VALIUM TAB 2MG ORALLY (DIAZEPAM)OLIMPIA GARCIA 01/23/2021 9:27:39 AM > VERIFIED RADHA VENEGAS 01/23/2021 9:31:23 AM > ADMINISTERED MEDICATION: OXYCODONE HCL TAB 5MG ORALLY OLIMPIA GARCIA 01/23/2021 9:27:56 AM > VERIFIED RADHA VENEGAS 01/23/2021 9:31:55 AM > ADMINISTERED COMPLETION OF PROCEDURAL VISIT WHEN MEETS CRITERIA SPONDYLOSIS WITHOUT MYELOPATHY OR RADICULOPATHY, LUMBOSACRAL REGION [facility] FACET BLOCK (PAIN)[id number] OTHERS NOTES: PAT COMPLETED, PATIENT REMINDED OF NPO CRITERIA FOR SOLID FOODS SIX HOURS BEFORE PROCEDURE AND CONTINUATION OF CLEAR FLUIDS UP UNTIL UP TO TWO HOURS BEFORE PROCEDURE. PATIENT VERBALIZED UNDERSTANDING. Barbara LOBATO RN BSN . PROCEDURES PAIN NURSING RECORD PROCEDURE IN ROOM 1005, PHYSICIAN IN ROOM 1030, START 1038, FINISH 1044, PHYSICIAN OUT OF ROOM 1046, OUT OF ROOM 1049, ECG NORMAL SINUS, PATIENT SHIELDED YES, SAFETY STRAP YES, PREP CHLOROPREP, OTHER Barbara VENEGAS RN, DRESSING TEGADERM DR. SMITH LOC: 1. ALERT, ORIENTED RESP: 1. REGULAR, NO DYSPNEA COLOR: 1. PINK SKIN: 1. WARM, DRY POSITION: 1. PRONE VITALS: RADHA VENEGAS 01/23/2021 9:46:14 AM > 131/61 HR 59 16 99% R/A POST PO SEDATION , RADHA VENEGAS 01/23/2021 10:10:43 AM > 138/64 HR 75 16 97% R/A , RADHA VENEGAS 01/23/2021 10:25:24 AM > 136/65 HR 80 16 97% R/A , RADHA VENEGAS 01/23/2021 10:40:23 AM > 126/59 HR 83 16 95% R/A , RADHA VENEGAS 01/23/2021 11:02:33 AM > 153/72 HR 80 16 98% R/A D/C V/S COMPLETION OF PROCEDURE APPOINTMENT: POST PAIN 3, DRESSING SITE DRY AND INTACT, IV N/A, GAIT STEADY, TEACHING COMPLETED, PATIENT ACKNOWLEDGES UNDERSTANDING YES, PROCEDURE APPOINTMENT COMPLETED AT 1117 PN LUMBAR FACET BLOCK THERAPEUTIC PRE PROCEDURE DIAGNOSIS LUMBAR SPONDYLOSIS, LUMBOSACRAL SPONDYLOSIS POST PROCEDURE DIAGNOSIS LUMBAR SPONDYLOSIS, LUMBOSACRAL SPONDYLOSIS PROCEDURE BILATERAL L4-L5 AND BILATERAL L5-S1 LUMBAR FACET THERAPEUTIC BLOCK SURGEON DR. HORACIO SMITH PHYSICAL THERAPY TEACHER NONE ANESTHESIA LOCAL PRE PROCEDURE NOTE THE PATIENT HAS A HISTORY OF CHRONIC LOW BACK PAIN. I EVALUATED THE PATIENT AND REVIEWED THE CHART. I WENT OVER THE RISKS, ALTERNATIVES, AND BENEFITS ASSOCIATED WITH THIS PROCEDURE. THE PATIENT WOULD LIKE TO PROCEED AND GIVES CONSENT TO PERFORM THE PROCEDURE. THE PATIENT DENIES UNEXPLAINABLE WEIGHT LOSS, FEVER, CHILLS, OR NEW CHANGES IN URINARY OR BOWEL CONTROL. THE PATIENT IS COVID-19 NEGATIVE. THE PATIENT HAS A LUMBARIZATION OF THE FIRST SACRAL SEGMENT. I WILL DO THE PROCEDURE COUNTING FROM THE TOP AT T12-L1 FOR A [employer] OF L4-L5, L5-S1 DESCRIPTION OF PROCEDURE THE PATIENT WAS BROUGHT TO THE PROCEDURE ROOM AND PLACED IN THE PRONE POSITION. THE LUMBOSACRAL AREA WAS CLEANED WITH CHLORHEXIDINE AND DURAPREP SOLUTION AND DRAPED ASEPTICALLY. THE PROCEDURE WAS DONE UNDER STERILE CONDITIONS. A TIMEOUT WAS PERFORMED WHERE THE CONSENTED SITE WAS VERIFIED WITH EVERYONE IN THE ROOM. UNDER FLUOROSCOPIC GUIDANCE, THE TARGET POINT WAS SELECTED AT THE RIGHT AND LEFT L4-L5 AND RIGHT AND LEFT L5-S1 FACET JOINTS. TARGET POINT WAS SELECTED AFTER LATERAL ROTATION AND TILT OF THE MAGNIFIER OF THE C-ARM. I CONFIRMED AGAIN THE SITE OF TARGET. LIDOCAINE 0.5% WAS USED TO NUMB THE SKIN AND THE SUBCUTANEOUS TISSUE BELOW IT. SPINAL NEEDLES, 22-GAUGE, WERE ADVANCED UNDER FLUOROSCOPIC GUIDANCE AND FOLLOWING PATIENT FEEDBACK UNTIL THE TARGETS WERE TOUCHED. THE POSITION OF THE NEEDLES WAS VERIFIED WITH AP AND LATERAL VIEWS. AFTER PROPER POSITION OF THE NEEDLES WAS ACHIEVED, ISOVUE-M DYE 30%, 0.1 ML, WAS INJECTED SHOWING ADEQUATE SPREAD OF THE DYE. KENALOG 10 MG WAS INJECTED AT EACH SITE. THEN, A SOLUTION OF 1.0 ML OF BUPIVACAINE 0.125% OF WAS USED TO FLUSH EACH SITE. THE MEDICATION WAS VERIFIED WITH THE NURSE. THERE WAS NO EVIDENCE OF BLOOD, PARESTHESIA OR CEREBROSPINAL FLUID DURING THE PROCEDURE. THE PATIENT WAS SENT TO THE RECOVERY ROOM. THE PATIENT WAS MOVING THE EXTREMITIES AND DOING WELL. THERE WERE NO COMPLICATIONS DURING THE PROCEDURE. ESTIMATED BLOOD LOSS WAS LESS THAN 5 ML. FLUOROSCOPY TIME WAS 43 SECONDS POST PROCEDURE NOTE CONSIDER ORDERING A NEW MRI, HER LAST MRI WAS DONE IN 2014. THE PATIENT WILL BE SEEN IN A FOLLOW UP IN THE NEXT FEW WEEKS. I AM LOOKING FOR LONG LASTING RELIEF FOR THE PATIENT WITH THIS INTERVENTION. INSTRUCTIONS WERE GIVEN, QUESTIONS WERE ANSWERED, AND THE PATIENT EXPRESSED UNDERSTANDING AND AGREES WITH THE PLAN. I, YAMILETH PALMER, DOCUMENTED THE ABOVE INFORMATION ACTING A SCRIBE FOR DR. SMITH. I HAVE REVIEWED THE ABOVE DOCUMENT, WRITTEN BY YAMILETH PALMER, AURICULAR DETOXIFICATION SPECIALIST, AND I VERIFY THAT IT IS ACCURATE PROCEDURE CODES 12010 INJ PARAVERT F JNT L/S 1 LEV, MODIFIERS: 50 14754 INJ PARAVERT F JNT L/S 2 LEV, MODIFIERS: 50 DISPOSITION & COMMUNICATION FOLLOW UP FOLLOW UP WITH SPRAY GUN STRIPER (REASON: POST BILATERAL THERAPEUTIC LUMBAR FACET BLOCK L4-L5, L5-S1) ELECTRONICALLY SIGNED BY HORACIO SMITH MD, MD ON 01/24/2021 AT 12:24 PM EDT DISCLAIMER : THIS IS A VISIT SUMMARY EXTRACTED FROM THE [employer] CHART. IT IS NOT A COPY OF THE [employer] PROGRESS NOTE. MTDD
== END ==
LOC: M PAIN 08:30
PROVIDERS: ATTEND Anesthesiology
DX: M47.816 Spondylosis without myelopathy or radiculopathy, lumbar region (principal); M47.817 Spondylosis without myelopathy or radiculopathy, lumbosacral region; I48.91 Unspecified atrial fibrillation; I10 Essential (primary) hypertension; E55.9 Vitamin D deficiency, unspecified; J45.909 Unspecified asthma, uncomplicated; L40.9 Psoriasis, unspecified; Z79.01 Long term (current) use of anticoagulants; Z79.899 Other long term (current) drug therapy; Z88.6 Allergy status to analgesic agent; Z88.1 Allergy status to other antibiotic agents
CPT/HCPCS: 64493; 64494; J3301; Q9967

== ENCOUNTER → 2021-02-06 | Outpatient (CLI) | payer BC ==
[~2021-02-06] MED LIST changes: -BUPIVACAINE HCL 0.25% 30ML VIAL As Ordered ONE; -ISOVUE-M 300 61% 15ML VIAL As Ordered ONE; -LIDOCAINE 1% SDV 30ML VIAL As Ordered ONE; -TRIAMCINOLONE ACETONIDE SUSP 40 MG/ML VIAL (J3301) As Ordered ONE; -diazePAM 2 MG TAB As Ordered ONE; -oxyCODONE 5MG TAB As Ordered ONE
--- NOTE | 2021-02-09 03:59 | ECWPNPC ---
PATIENT NAME: ROBIN NGUYỄN : 1950 GENDER: FEMALE VISIT DATE: 02/06/2021 DISCHARGE DATE: 02/06/21 1111 VISIT LOCKED DATE TIME: PHYSICIAN: BUDDY BILLINGSLEY PHYSICIAN PAGER NO: ACTIVE RESOURCE: BUDDY BILLINGSLEY REASON FOR APPOINTMENT 1. POST BILATERAL THERAPEUTIC LUMBAR FACET BLOCK L4-5,L5-S1 HISTORY OF PRESENT ILLNESS DEPRESSION SCREENING: PHQ-2 (2015 EDITION) LITTLE INTEREST OR PLEASURE IN DOING THINGS?NOT AT ALL FEELING DOWN, DEPRESSED, OR HOPELESS?NOT AT ALL TOTAL SCORE0 GENERAL: HERE FOR POST PROCEDURE F/U.HAD LFBT ON 01/23/21.REPORTING MARKED REDUCTION IN PAIN THAT CONTINUES TODAY.REPORTING REDUCTION IN PAIN DURING ACTIVITIES IE VACUUMING. -. FALL RISK SCREENING: SCREENING : NO FALLS REPORTED IN THE LAST YEAR. PAIN SCREENING: PATIENT HAS A COMPLAINT OF ACUTE OR CHRONIC PAIN :YES LOCATION OF PAIN:LOW BACK INTENSITY OF PAIN (SCALE OF 1 TO 10):4 WHAT DOES YOUR PAIN FEEL LIKE:ACHING, CONTINOUS DURATION:CONTINOUS, CONSTANT, ONLY WITH SPECIFIC ACTIVITIES PAIN IS INCREASED BY:ACTIVITIES PAIN IS DECREASED BY:OTHERS RESTING,HEAT AND SITTING DOWN NURSING NOTE: -. PAIN CENTER INTAKE QUESTIONS: HERE FOR FOLLOW-UP OF CHRONIC LOW BACK PAIN. PAIN IS BEGINNING TO INCREASE ACROSS HER LOWER BACK. HAS RESPONDED WELL TO THERAPEUTIC LUMBAR FACET BLOCKS IN THE PAST. WE DISCUSSED TREATMENT OPTIONS. I REVIEWED LUMBAR MRI. PAIN IS AGGRAVATED BY PROLONGED STANDING OR SITTING. DO YOU HAVE A HISTORY OF MRSA? :NO DO YOU TAKE A BLOOD THINNERS? :YES ELIQUIS DO YOU HAVE ANY BLEEDING DISORDERS? :NO ANY NEW NUMBNESS OR WEAKNESS IN YOUR LEGS OR ARMS? :NO ANY PACEMAKER,DEFIBRILLATOR, OR DORSAL COLUMN STIMULATOR? :NO DO YOU HAVE ANY RASHES OR OPEN SORES? :YES PSORIAS RASH ARE YOU ALLERGIC TO IV DYE? :NO ARE YOU DIABETIC? :NO ANY NEW PROBLEMS WITH YOUR MEDICATIONS? :NO HAVE YOU RECEIVED A VACCINE IN THE PAST 30 DAYS? :NO DO YOU PLAN TO RECEIVE A VACCINE IN THE NEXT 21 DAYS? :NO DO YOU NEED ANY PRESCRIPTION? :NO DO YOU TAKE ANY IMMUNOSUPPRESSIVE MEDICATIONS? :NO IS THERE A CHANCE YOU COULD BE ? :NO ARE YOU BREAST FEEDING? :NO CURRENT MEDICATIONS TAKING ELIQUIS 5 MG TABLET 1 TABLET ORALLY TWICE A DAY TAKING ALBUTEROL 90 MCG/ACT AEROSOL SOLUTION 2 PUFFS INHALATION EVERY 4 HOURS NEEDED TAKING FLONASE 50 MCG/ACT SUSPENSION 2 SPRAYS IN EACH NOSTRIL NASALLY DAILY TAKING CETIRIZINE HCL 10 MG TABLET 1 TABLET ORALLY ONCE A DAY TAKING DRISDOL 94451 UNIT CAPSULE 1 CAPSULE ORALLY ONCE A MONTH TAKING CALTRATE 600+D 600-400 MG-UNIT TABLET 1 TABLET ORALLY TWICE A DAY TAKING MAGNESIUM 400 MG TABLET 1 TABLETS WITH A MEAL ORALLY ONCE A DAY TAKING ACETAMINOPHEN EXTRA STRENGTH 500 MG TABLET 2 TABS ORALLY EVERY 8 HOURS NEEDED FOR PAIN TAKING TRIAMCINOLONE ACETONIDE 0.1 % CREAM 1 APPLICATION EXTERNALLY TWO TIMES A WEEK TAKING MULTIVITAMIN ADULTS - TABLET 1 TABLET ORALLY DAILY TAKING VITAMIN C 500 MG CAPSULE 1 TABLET ORALLY ONCE A DAY TAKING LISINOPRIL 40 MG TABLET 1 TABLET ORALLY ONCE A DAY TAKING VERAPAMIL HCL 240 MG TABLET EXTENDED RELEASE 1 TABLET ORALLY DAILY TAKING FUROSEMIDE 40 MG TABLET TAKE ONE TABLET BY MOUTH TWICE A DAY TAKING AMOXICILLIN-POT CLAVULANATE 875-125 MG TABLET 1 TABLET ORALLY TWICE A DAY NOT-TAKING LISINOPRIL 40 MG TABLET TAKE ONE TABLET BY MOUTH EVERY DAY , NOTES: DUPLICATE ENTRY NOT-TAKING DOXYCYCLINE HYCLATE 100 MG TABLET 1 TABLET ORALLY ONCE A DAY MEDICATION LIST REVIEWED AND RECONCILED WITH THE PATIENT PAST MEDICAL HISTORY ATRIAL FIBRILLATION HYPERTENSION EDEMA VITAMIN D DEFICIENCY ASTHMA OSTEOARTHRITIS PSORIASIS 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 HISTORY OF SEIZURE X 1 AFTER 1981 ALLERGIES ASPIRIN: SNEEZING AND COUGHING - SIDE EFFECTS KEFLEX: THRUSH AND SWOLLEN TONGUE - SIDE EFFECTS NAPROXEN: WHEEZING, SHORTNESS OF BREATH - ALLERGY SOCIAL HISTORY GENERAL: TOBACCO USE ARE YOU A:NONSMOKER , NEVER SMOKER LATEX QUESTIONNAIRE LATEX ALLERGY : HAVE YOU EVER DEVELOPED ANY TYPE OF REACTION AFTER HANDLING LATEX PRODUCTS SUCH RUBBER GLOVES, CONDOMS, DIAPHRAGMS, BALLOONS, SOCKS, OR UNDERWEAR?NO LATEX ALLERGY : HAVE YOU EVER DEVELOPED ANY TYPE OF REACTION DURING OR AFTER DENTAL APPOINTMENT, VAGINAL/RECTAL EXAMINATION, SURGICAL PROCEDURE, OR ANY OTHER EXPOSURE?NO LATEX RISK : HAVE YOU EVER HAD ANY DIFFICULTY BREATHING OR HIVES AFTER EATING OR HANDLING ANY FRUITS, OR VEGETABLES; SUCH KIWI, BANANAS, STONE FRUITS, OR CHESTNUTSNO LATEX RISK : DO YOU HAVE A PREVIOUS PERSONAL HISTORY OF MORE THAN NINE SURGERIES, SPINA BIFIDA, OR REPEATED CATHERIZATIONS? NO LATEX RISK : ARE YOU FREQUENTLY EXPOSED TO LATEX PRODUCTS IN YOUR OCCUPATION?NO DATE ASKED : 02/06/2021 ALCOHOL USE: NO. LUNG CANCER SCREENING SMOKING STATUS:NON SMOKER BMI CARE GOAL FOLLOW-UP ABOVE NORMAL BMI FOLLOW-UPDIETARY MANAGEMENT EDUCATION, GUIDANCE, AND COUNSELING ALCOHOL SCREENING DID YOU HAVE A DRINK CONTAINING ALCOHOL IN THE PAST YEAR?NO POINTS0 INTERPRETATIONNEGATIVE RECREATIONAL DRUG USE DENIES. CAFFEINE CAFFEINE USE?YES HOW OFTEN AND HOW MUCH? ONE CUP OF COFFEE A DAY SEXUAL HX HAD SEX IN THE LAST 12 MONTHS (VAGINAL, ORAL, OR ANAL)?YES HAVE YOU EVER HAD AN STD?NO HIV / HEP-C SCREENING HIV TEST OFFERED TO PATIENT:YES DATE OFFERED:01/08/2017 TEST ACCEPTED:NO HEP-C TEST OFFERED TO PATIENT:YES DATE OFFERED:01/08/2017 REASON:PATIENT DECLINED TEST ACCEPTED:NO REASON:PATIENT DECLINED MOSQUE [id number] NONE LANGUAGE HUNGARIAN. EDUCATION LEVEL OF EDUCATION:FINISHED HIGH SCHOOL LEARNING BARRIERS / SPECIAL NEEDS CHANGE FROM LAST VISIT?NO BARRIERS TO LEARNING?NO HEARING IMPAIRED?NO VISION IMPAIRED?YES : READING COGNITIVELY IMPAIRED?NO READINESS TO LEARN?YES LEARNING PREFERENCES?NO LEARNING CAPABILITIES PRESENT?YES EMOTIONAL BARRIERS?NO SPECIAL DEVICES?NO HEALTH SAFETY ENGINEER NEEDED?NO OCCUPATION: [employer]. 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 EXERCISE: WALKS. MARITAL STATUS: . OTHERS AT HOME: SPOUSE. - WAS THE PROVIDER NOTIFIED OF ANY PERTINENT INFO?YES HAS THE PATIENT BEEN EDUCATED REGARDING HIS/HER PLAN OF CARE?YES HAS THE PATIENT BEEN EDUCATED REGARDING PAIN, THE RISK FOR PAIN, THE IMPORTANCE OF EFFECTIVE PAIN MANAGEMENT, AND THE PAIN ASSESSMENT PROCESS?YES PROCEDURE APPT, IV, PO SEDATION ADVANCE DIRECTIVE ADVANCE DIRECTIVE DISCUSSED WITH PATIENT:YES PATIENT HAS NO ADVANCED DIRECTIVE, INFORMATION ON HCP OFFERED AND DECLINED. REVIEW OF SYSTEMS CONSTITUTIONAL: ANY RECENT FEVER NO . CHILLS NO . WEIGHT CHANGE OF UNKNOWN REASONS NO . GASTROENTEROLOGY: NEW UNEXPLAINABLE CHANGES IN BOWEL CONTROL NO . CONSTIPATION NO . GENITOURINARY: ANY NEW CHANGE IN BLADDER CONTROL? NO . NEUROLOGY: NEW ONSET DIZZINESS OR NEUROLOGICAL CHANGES NOT MENTIONED NO . NEW NUMBNESS OR PAIN PATTERNS NOT MENTIONED AND PERTINENT TO TODAY'S VISIT NO . CARDIOLOGY: NEW CHEST PRESSURE NO . PATIENT DENIES NO . RESPIRATORY: UNEXPLAINABLE COUGH NO . NEW SHORTNESS OF BREATH NO . VITAL SIGNS WT 255.8 LBS, HT 63.50 IN, BMI 44.60 INDEX, BP 130/61 MM HG, HR 89 /MIN, RR 18 /MIN, TEMP 97.5 F, OXYGEN SAT % 98%, SAFE IN ENV? (Y/N) YES, NA INITIALS AW 1051T.NEDA GARCIA. EXAMINATION GENERAL EXAMINATION: GENERALAWAKE,ALERT ,PLEASANT . PSYCHAFFECT NORMAL . LUNGS:LUNG PRICE ARE CLEAR TO AUSCULTATION BILATERALLY. GOOD MOVEMENT OF AIR . HEART:S1, S2 IN A REGULAR RATE AND RHYTHM. NO SIGNIFICANT MURMURS, RUBS OR GALLOPS NOTED . ASSESSMENTS OTHER CHRONIC PAIN - G89.29 (PRIMARY) SPONDYLOSIS WITHOUT MYELOPATHY OR RADICULOPATHY, LUMBAR REGION - M47.816 TREATMENT OTHER CHRONIC PAIN PAIN PROCEDURE LOGDATE OF PROCEDURE1PROCEDURE:BILATERAL THERAPEUTIC LUMBAR FACET BLOCK L4-L5,L5-C8OGIADH OF PRE SEDATEVALIUM 2MG, OXYCODONE 5MGRESULT:MARKED REDUCTION IN PAIN AND IMPROVED ACTIVITY TOLERANCE SPONDYLOSIS WITHOUT MYELOPATHY OR RADICULOPATHY, LUMBAR REGION [facility] SP[facility], [facility].S. WITHOUT [id number] PROCEDURE CODES FA211 ESTABILISHED PATIENT [facility] FACILITY CHARGE DISPOSITION & COMMUNICATION FOLLOW UP PATIENT NEEDS OPEN MRI, 2 MONTHS (REASON: REVIEW MRI L/S SPINE) ELECTRONICALLY SIGNED BY SHARLENE MONTERROSO ON 02/08/2021 AT 08:37 AM EDT DISCLAIMER : THIS IS A VISIT SUMMARY EXTRACTED FROM THE [employer] CHART. IT IS NOT A COPY OF THE [employer] PROGRESS NOTE. YURY
== END ==
LOC: M PAIN 10:45
PROVIDERS: ATTEND Nurse Practitioner Family
DX: M47.816 Spondylosis without myelopathy or radiculopathy, lumbar region (principal); G89.29 Other chronic pain; E55.9 Vitamin D deficiency, unspecified; J45.909 Unspecified asthma, uncomplicated; Z88.1 Allergy status to other antibiotic agents; Z88.6 Allergy status to analgesic agent; E66.01 Morbid (severe) obesity due to excess calories; Z68.41 Body mass index [BMI] 40.0-44.9, adult; Z79.01 Long term (current) use of anticoagulants; Z79.899 Other long term (current) drug therapy

== ENCOUNTER → 2021-02-17 | Outpatient (REF) | payer BC | LOC: M SFHCADAM 18:14 | PROVIDERS: ATTEND Family Medicine | DX: R19.7 Diarrhea, unspecified (principal) ==

== ENCOUNTER → 2021-02-28 | Outpatient (CLI) | payer BC ==
--- NOTE | 2021-03-01 01:42 | ECWPNPC ---
PATIENT NAME: ROBIN NGUYỄN : 1950 GENDER: FEMALE VISIT DATE: 02/28/2021 DISCHARGE DATE: 02/28/21 1426 VISIT LOCKED DATE TIME: PHYSICIAN: BUDDY BILLINGSLEY PHYSICIAN PAGER NO: ACTIVE RESOURCE: BUDDY BILLINGSLEY REASON FOR APPOINTMENT 1. MRI REVIEW HISTORY OF PRESENT ILLNESS GENERAL: HERE FOR FOLLOW-UP OF CHRONIC LOW BACK PAIN AND TO REVIEW MRI OF THE LS-SPINE I ORDERED AT HER LAST VISIT. THIS IS REVIEWED TODAY. 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 CONTINUES TO BENEFIT FROM LUMBAR FACET BLOCK THERAPEUTIC THAT WAS DONE SEVERAL MONTHS AGO. PAIN IS AGGRAVATED BY INCREASED LIFTING OR PROLONGED STANDING. DISCUSSED TREATMENT OPTIONS. -. FALL RISK SCREENING: SCREENING : NO FALLS REPORTED IN THE LAST YEAR. PAIN SCREENING: PATIENT HAS A COMPLAINT OF ACUTE OR CHRONIC PAIN :YES LOCATION OF PAIN:LOW BACK INTENSITY OF PAIN (SCALE OF 1 TO 10):4 WHAT DOES YOUR PAIN FEEL LIKE:ACHING DURATION:ONLY WITH SPECIFIC ACTIVITIES PAIN IS INCREASED BY:ACTIVITIES, PROLONGED STANDING PAIN IS DECREASED BY:SITTING, OTHERS LAYING DOWN NURSING NOTE: -. PAIN CENTER INTAKE QUESTIONS: DO YOU HAVE A HISTORY OF MRSA? :NO DO YOU TAKE A BLOOD THINNERS? :YES ELIQUIS DO YOU HAVE ANY BLEEDING DISORDERS? :NO ANY NEW NUMBNESS OR WEAKNESS IN YOUR LEGS OR ARMS? :NO ANY PACEMAKER,DEFIBRILLATOR, OR DORSAL COLUMN STIMULATOR? :NO DO YOU HAVE ANY RASHES OR OPEN SORES? :YES PSORIAS RASH ARE YOU ALLERGIC TO IV DYE? :NO ARE YOU DIABETIC? :NO ANY NEW PROBLEMS WITH YOUR MEDICATIONS? :NO HAVE YOU RECEIVED A VACCINE IN THE PAST 30 DAYS? :NO DO YOU PLAN TO RECEIVE A VACCINE IN THE NEXT 21 DAYS? :YES 1ST COVID 03/06/2021 DO YOU NEED ANY PRESCRIPTION? :NO DO YOU TAKE ANY IMMUNOSUPPRESSIVE MEDICATIONS? :NO IS THERE A CHANCE YOU COULD BE ? :NO ARE YOU BREAST FEEDING? :NO CURRENT MEDICATIONS TAKING ALBUTEROL 90 MCG/ACT AEROSOL SOLUTION 2 PUFFS INHALATION EVERY 4 HOURS NEEDED TAKING FLONASE 50 MCG/ACT SUSPENSION 2 SPRAYS IN EACH NOSTRIL NASALLY DAILY TAKING CETIRIZINE HCL 10 MG TABLET 1 TABLET ORALLY ONCE A DAY TAKING CALTRATE 600+D 600-400 MG-UNIT TABLET 1 TABLET ORALLY TWICE A DAY TAKING MAGNESIUM 400 MG TABLET 1 TABLETS WITH A MEAL ORALLY ONCE A DAY TAKING ACETAMINOPHEN EXTRA STRENGTH 500 MG TABLET 2 TABS ORALLY EVERY 8 HOURS NEEDED FOR PAIN TAKING TRIAMCINOLONE ACETONIDE 0.1 % CREAM 1 APPLICATION EXTERNALLY TWO TIMES A WEEK TAKING MULTIVITAMIN ADULTS - TABLET 1 TABLET ORALLY DAILY TAKING VITAMIN C 500 MG CAPSULE 1 TABLET ORALLY ONCE A DAY TAKING LISINOPRIL 40 MG TABLET 1 TABLET ORALLY ONCE A DAY TAKING VERAPAMIL HCL 240 MG TABLET EXTENDED RELEASE 1 TABLET ORALLY DAILY TAKING ELIQUIS 5 MG TABLET 1 TABLET ORALLY TWICE A DAY TAKING FUROSEMIDE 40 MG TABLET TAKE ONE TABLET BY MOUTH TWICE A DAY TAKING DRISDOL 49932 UNIT CAPSULE 1 CAPSULE ORALLY ONCE A MONTH, NOTES: ONCE A MONTH NOT-TAKING LISINOPRIL 40 MG TABLET TAKE ONE TABLET BY MOUTH EVERY DAY NOT-TAKING AMOXICILLIN-POT CLAVULANATE 875-125 MG TABLET 1 TABLET ORALLY TWICE A DAY NOT-TAKING DOXYCYCLINE HYCLATE 100 MG TABLET 1 TABLET ORALLY ONCE A DAY MEDICATION LIST REVIEWED AND RECONCILED WITH THE PATIENT PAST MEDICAL HISTORY ATRIAL FIBRILLATION HYPERTENSION EDEMA VITAMIN D DEFICIENCY ASTHMA OSTEOARTHRITIS PSORIASIS 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 HISTORY OF SEIZURE X 1 AFTER 1981 ALLERGIES ASPIRIN: SNEEZING AND COUGHING - SIDE EFFECTS KEFLEX: THRUSH AND SWOLLEN TONGUE - SIDE EFFECTS NAPROXEN: WHEEZING, SHORTNESS OF BREATH - ALLERGY SOCIAL HISTORY GENERAL: TOBACCO USE ARE YOU A:NONSMOKER , NEVER SMOKER LATEX QUESTIONNAIRE LATEX ALLERGY : HAVE YOU EVER DEVELOPED ANY TYPE OF REACTION AFTER HANDLING LATEX PRODUCTS SUCH RUBBER GLOVES, CONDOMS, DIAPHRAGMS, BALLOONS, SOCKS, OR UNDERWEAR?NO LATEX ALLERGY : HAVE YOU EVER DEVELOPED ANY TYPE OF REACTION DURING OR AFTER DENTAL APPOINTMENT, VAGINAL/RECTAL EXAMINATION, SURGICAL PROCEDURE, OR ANY OTHER EXPOSURE?NO LATEX RISK : HAVE YOU EVER HAD ANY DIFFICULTY BREATHING OR HIVES AFTER EATING OR HANDLING ANY FRUITS, OR VEGETABLES; SUCH KIWI, BANANAS, STONE FRUITS, OR CHESTNUTSNO LATEX RISK : DO YOU HAVE A PREVIOUS PERSONAL HISTORY OF MORE THAN NINE SURGERIES, SPINA BIFIDA, OR REPEATED CATHERIZATIONS? NO LATEX RISK : ARE YOU FREQUENTLY EXPOSED TO LATEX PRODUCTS IN YOUR OCCUPATION?NO DATE ASKED : 02/28/2021 ALCOHOL USE: NO. LUNG CANCER SCREENING SMOKING STATUS:NON SMOKER BMI CARE GOAL FOLLOW-UP ABOVE NORMAL BMI FOLLOW-UPDIETARY MANAGEMENT EDUCATION, GUIDANCE, AND COUNSELING ALCOHOL SCREENING DID YOU HAVE A DRINK CONTAINING ALCOHOL IN THE PAST YEAR?NO POINTS0 INTERPRETATIONNEGATIVE RECREATIONAL DRUG USE DENIES. CAFFEINE CAFFEINE USE?YES HOW OFTEN AND HOW MUCH? ONE CUP OF COFFEE A DAY SEXUAL HX HAD SEX IN THE LAST 12 MONTHS (VAGINAL, ORAL, OR ANAL)?YES HAVE YOU EVER HAD AN STD?NO HIV / HEP-C SCREENING HIV TEST OFFERED TO PATIENT:YES DATE OFFERED:01/08/2017 TEST ACCEPTED:NO HEP-C TEST OFFERED TO PATIENT:YES DATE OFFERED:01/08/2017 REASON:PATIENT DECLINED TEST ACCEPTED:NO REASON:PATIENT DECLINED SCIENTOLOGY [id number] NONE LANGUAGE [place]DE[place]. 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 EXERCISE: WALKS. MARITAL STATUS: . OTHERS AT HOME: SPOUSE. - WAS THE PROVIDER NOTIFIED OF ANY PERTINENT INFO?YES HAS THE PATIENT BEEN EDUCATED REGARDING HIS/HER PLAN OF CARE?YES HAS THE PATIENT BEEN EDUCATED REGARDING PAIN, THE RISK FOR PAIN, THE IMPORTANCE OF EFFECTIVE PAIN MANAGEMENT, AND THE PAIN ASSESSMENT PROCESS?YES PROCEDURE APPT, IV, PO SEDATION ADVANCE DIRECTIVE ADVANCE DIRECTIVE DISCUSSED WITH PATIENT:YES PATIENT HAS NO ADVANCED DIRECTIVE, INFORMATION ON HCP OFFERED AND DECLINED. REVIEW OF SYSTEMS CONSTITUTIONAL: ANY RECENT FEVER NO . CHILLS NO . WEIGHT CHANGE OF UNKNOWN REASONS NO . GASTROENTEROLOGY: NEW UNEXPLAINABLE CHANGES IN BOWEL CONTROL NO . CONSTIPATION NO . GENITOURINARY: ANY NEW CHANGE IN BLADDER CONTROL? NO . NEUROLOGY: NEW ONSET DIZZINESS OR NEUROLOGICAL CHANGES NOT MENTIONED NO . NEW NUMBNESS OR PAIN PATTERNS NOT MENTIONED AND PERTINENT TO TODAY'S VISIT NO . CARDIOLOGY: NEW CHEST PRESSURE NO . PATIENT DENIES NO . RESPIRATORY: UNEXPLAINABLE COUGH NO . NEW SHORTNESS OF BREATH NO . VITAL SIGNS WT 251 LBS, HT 63.50 IN, BMI 43.76 INDEX, BP 126/60 MM HG, HR 81 /MIN, RR 18 /MIN, TEMP 97 F, OXYGEN SAT % 95%, SAFE IN ENV? (Y/N) YEST.NEDA GARCIA. EXAMINATION GENERAL EXAMINATION: GENERALAWAKE,ALERT ,PLEASANT . PSYCHAFFECT NORMAL . LUNGS:LUNG PRICE ARE CLEAR TO AUSCULTATION BILATERALLY. GOOD MOVEMENT OF AIR . HEART:S1, S2 IN A REGULAR RATE AND RHYTHM. NO SIGNIFICANT MURMURS, RUBS OR GALLOPS NOTED . ASSESSMENTS SPONDYLOSIS WITHOUT MYELOPATHY OR RADICULOPATHY, LUMBAR REGION - M47.816 (PRIMARY) TREATMENT SPONDYLOSIS WITHOUT MYELOPATHY OR RADICULOPATHY, LUMBAR REGION NOTES: CONTINUE HOME EXCERSISE AND STRETCHING. PROCEDURE CODES FA211 ESTABILISHED PATIENT [facility] CHARGE DISPOSITION & COMMUNICATION FOLLOW UP 3 MONTHS (REASON: RESPONDS WELL TO LUMBAR FACET BLOCK THERAPEUTIC) ELECTRONICALLY SIGNED BY SHARLENE MONTERROSO ON 02/28/2021 AT 09:50 PM EDT DISCLAIMER : THIS IS A VISIT SUMMARY EXTRACTED FROM THE [employer] CHART. IT IS NOT A COPY OF THE [employer] PROGRESS NOTE. YURY
== END ==
LOC: M PAIN 13:30
PROVIDERS: ATTEND Nurse Practitioner Family
DX: M47.816 Spondylosis without myelopathy or radiculopathy, lumbar region (principal); I48.91 Unspecified atrial fibrillation; I10 Essential (primary) hypertension; E55.9 Vitamin D deficiency, unspecified; J45.909 Unspecified asthma, uncomplicated; L40.9 Psoriasis, unspecified; Z79.01 Long term (current) use of anticoagulants; Z79.899 Other long term (current) drug therapy; Z88.6 Allergy status to analgesic agent; Z88.5 Allergy status to narcotic agent; Z88.1 Allergy status to other antibiotic agents

== ENCOUNTER → 2021-03-01 | Outpatient (REF) | payer BC ==
[2021-03-01 12:03] LABS: HEMOGLOBIN A1c 7.3 %
[2021-03-01 12:36] LABS: ALBUMIN 3.4 GM/DL (3.2-5.2); BILIRUBIN,TOTAL 0.6 MG/DL (0.2-1.0); CHOLESTEROL RISK RATIO 2.836 (<5); CREATININE FOR GFR 1.07 MG/DL (0.55-1.30); GLOMERULAR FILTRATION RATE 53.8 (>39); POTASSIUM SERUM 5.1 MEQ/L (3.5-5.1); TOTAL PROTEIN 6.5 GM/DL (6.4-8.2)
[2021-03-01 13:25] LABS: TOTAL 25(OH) VITAMIN D 50.4 NG/ML (30.0-100.0)
== END ==
LOC: M SFHCADAM 11:11
PROVIDERS: ATTEND Physician Assistant
DX: E87.5 Hyperkalemia (principal); R74.01 Elevation of levels of liver transaminase levels; E11.9 Type 2 diabetes mellitus without complications; I10 Essential (primary) hypertension; E55.9 Vitamin D deficiency, unspecified

== ENCOUNTER → 2021-03-15 | Outpatient (CLI) | payer BC ==
--- NOTE | 2021-03-15 14:30 | REPMRS ---
Patient History The patient states she had a clinical breast exam in January 2021. No known family history of cancer. Tomosynthesis is performed. Volpara breast density is b. Tyrer-zick lifetime risk of breast cancer 4.0%. Vaccine 03/06/21 right arm. Patient states no breast complaints today. Patient has signed MRS History Sheet. Digital Woman Screen Mammo: March 15, 2021 - Exam #: [id number] Bilateral CC and MLO view(s) were taken. Technologist: RT Sidra Prior study comparison: February 16, 2020, bilateral digital woman screen mammo performed at [facility]. February 10, 2019, bilateral digital woman screen mammo performed at [facility]. FINDINGS: There are scattered fibroglandular densities. There has been no change in the appearance of the mammogram from the prior studies. There is a mild amount of residual fibroglandular tissue which is fairly symmetric. There is no interval development of dominant mass, architectural distortion, or clustered microcalcification suggestive of malignancy. Assessment: BI-RADS/ACR category 1 mammogram. Negative Mammogram. Recommendation Routine screening mammogram in 1 year (for women over age 40). This mammogram was interpreted with the aid of an FDA-approved computer-aided dectection system. Electronically Signed By: Alfie Arnold MD 03/15/21 [id number]
--- NOTE | 2021-03-16 09:05 | DEXAMM ---
INDICATION: SCR FOR OSTEOPOROSIS/Z13.820. COMPARISON: 02/10/2019 as well as other prior exams. TECHNIQUE: Bone density was measured using dual-energy x-ray absorptiometry (DEXA). FINDINGS: AP SPINE L1-L4 BMD 1.111 g/cm2 Young Adult T-Score -0.7 Age Matched Z-Score 1.0. LT FEMUR, TOTAL BMD 0.818 g/cm2 Young Adult T-Score -1.5 Age Matched Z-Score 0.1. LT NECK BMD 0.754 g/cm2 Young Adult T-Score -2.0 Age Matched Z-Score -0.3. RT FEMUR, TOTAL BMD 0.778 g/cm2 Young Adult T-Score -1.8 Age Matched Z-Score -0.3. RT NECK BMD 0.733 g/cm2 Young Adult T-Score -2.2 Age Matched Z-Score -0.4. IMPRESSION: There is normal bone density of the spine. There is low bone density of the left hip. There is low bone density of the right hip. The density of the spine has decreased 3.0% since the initial exam on 06/05/2005. The density of the spine decreased 3.3% since most recent exam on 02/10/2019. The density of the left hip has decreased 26.8% since initial exam on 06/05/2005. The density of the left hip has decreased 10.6% since most recent exam on 02/10/2019. The density of the right hip has decreased 28.0% since the initial exam on 06/05/2005. The density of the right hip has decreased 8.5% since the most recent exam on 02/10/2019. FOLLOW-UP: Recommendation for the next bone density exam: 2 years. <Electronically signed by Alfie Arnold > 03/16/21 0902
== END ==
LOC: M WHC 12:46
PROVIDERS: ATTEND Advanced Practice Midwife
DX: Z12.31 Encounter for screening mammogram for malignant neoplasm of breast (principal); Z13.820 Encounter for screening for osteoporosis

== ENCOUNTER → 2021-08-28 | Outpatient (REF) | payer BC ==
[~2021-08-28] MED LIST changes: +CICL6.6S TOP; -CICL8SOL3 TOP; -CLIN150C15 PO; +CLIN150C17 PO; +ERGO500029 PO; +VERA240T65 PO; -VERA24TASA PO
[2021-08-28 13:34] LABS: HEMOGLOBIN A1c 8.9 %
[2021-08-28 13:39] LABS: ALBUMIN 3.2 GM/DL (3.2-5.2); BILIRUBIN,TOTAL 0.8 MG/DL (0.2-1.0); CALCIUM LEVEL 9.3 MG/DL (8.8-10.2); CHOLESTEROL RISK RATIO 4.428 (<5); CREATININE FOR GFR 1.42 MG/DL (0.55-1.30); GLOMERULAR FILTRATION RATE 38.7 (>39); POTASSIUM SERUM 5.1 MEQ/L (3.5-5.1); TOTAL PROTEIN 6.9 GM/DL (6.4-8.2)
[2021-08-28 13:43] LABS: TOTAL 25(OH) VITAMIN D 67.2 NG/ML (30.0-100.0)
== END ==
LOC: M SFHCADAM 09:37
PROVIDERS: ATTEND Physician Assistant
DX: E87.5 Hyperkalemia (principal); R74.01 Elevation of levels of liver transaminase levels; E11.9 Type 2 diabetes mellitus without complications; I10 Essential (primary) hypertension; E55.9 Vitamin D deficiency, unspecified

== ENCOUNTER 2021-08-31 20:06 | Emergency (ER) | payer BC ==
[~2021-08-31] VITALS: Ht 162.6 cm; Wt 112.1 kg
[~2021-08-31 20:06] MED LIST changes: -CICL6.6S TOP; +CICL8SOL3 TOP
[2021-08-31 20:09] VITALS: BP 133/63
--- OUTSIDE RECORDS SUMMARY | 2021-08-31 20:19 | CCD ---
Author Author [facility] Organization [facility] Address Unknown Phone Unavailable Care Team Providers Care A P Mechanic Name Role Phone Nico Champion MD Unavailable Unavailab le JayceeNico MD Unavailable Unavailab le JayceeNico MD Unavailable Unavailab le JayceeNico MD Unavailable Unavailab le JayceeNico MD Unavailable Unavailab le JayceeNico MD Unavailable Unavailab le JayceeNico MD Unavailable Unavailab le JayceeNico MD Unavailable Unavailab le JayceeNico mcdaniel MD Unavailable Unavailab le JayceeNico mcdaniel MD Unavailable Unavailab le JayceeNico mcdaniel MD Unavailable Unavailab le JayceeNico mcdaniel MD Unavailable Unavailab le JayceeNico MD Unavailable Unavailab le JayceeNico MD Unavailable Unavailab le JayceeNico MD Unavailable Unavailab le Jaycee, Nico Jennings MD Unavailable Unavailab le Jaycee, Nico Jennings MD Unavailable Unavailab le Jaycee, Nico Jennings MD Unavailable Unavailab le Jaycee, Nico Jennings MD Unavailable Unavailab le Jaycee, Nico Jennings MD Unavailable Unavailab le Jaycee, Nico Jennings MD Unavailable Unavailab le Jaycee, Nico Jennings MD Unavailable Unavailab le Jaycee, Nico Jennings MD Unavailable Unavailab le Jaycee, Nico Jennings MD Unavailable Unavailab le Jaycee, Nico Jennings MD Unavailable Unavailab le Jaycee, Nico Jennings MD Unavailable Unavailab le Jaycee, Nico Jennings MD Unavailable Unavailab le Jaycee, Nico Jennings MD Unavailable Unavailab le Jaycee, Nico Jennings MD Unavailable Unavailab le Jaycee, Nico Jennings MD Unavailable Unavailab le Jaycee, Nico Jennings MD Unavailable Unavailab le Jaycee, Nico Jennings MD Unavailable Unavailab le Jaycee, Nico Jennings MD Unavailable Unavailab le Jaycee, Nico Jennings MD Unavailable Unavailab le Jaycee, Nico Jennings MD Unavailable Unavailab le Jaycee, Nico Jennings MD Unavailable Unavailab le Jaycee, Nico Jennings MD Unavailable Unavailab le Jaycee, Nico Jennings MD Unavailable Unavailab le Jaycee, Nico Jennings MD Unavailable Unavailab le Jaycee, Nico Jennings MD Unavailable Unavailab le Jaycee, Nico Jennings MD Unavailable Unavailab le Jaycee, Nico Jennings MD Unavailable Unavailab le Jaycee, Nico Jennings MD Unavailable Unavailab le Jaycee, Nico Jennings MD Unavailable Unavailab le Jaycee, Nico Jennings MD Unavailable Unavailab le Jaycee, Nico Jennings MD Unavailable Unavailab le Jaycee, Nico Jennings MD Unavailable Unavailab le Jaycee, Nico Jennings MD Unavailable Unavailab le Jaycee, Nico Jennings MD Unavailable Unavailab le Jaycee, Nico Jennings MD Unavailable Unavailab le Jaycee, Nico Jennings MD Unavailable Unavailab le Jaycee, Nico Jennings MD Unavailable Unavailab le Jaycee, Nico Jennings MD Unavailable Unavailab le Jaycee, Nico Jennings MD Unavailable Unavailab le Jaycee, Nico Jennings MD Unavailable Unavailab le Jaycee, Nico Jennings MD Unavailable Unavailab le Jaycee, Nico Jennings MD Unavailable Unavailab le Jaycee, Nico Jennings MD Unavailable Unavailab le Jaycee, Nico Jennings MD Unavailable Unavailab le Jaycee, Nico Jennings MD Unavailable Unavailab le Jaycee, Nico Jennings MD Unavailable Unavailab le Jaycee, Nico Jennings MD Unavailable Unavailab le Jaycee, Nico Jennings MD Unavailable Unavailab le Jaycee, Nico Jennings MD Unavailable Unavailab le Jaycee, Nico Jennings MD Unavailable Unavailab le Jaycee, Nico Jennings MD Unavailable Unavailab le Jaycee, Nico Jennings MD Unavailable Unavailab le Jaycee, Nico Jennings MD Unavailable Unavailab le Jaycee, Nico Jennings MD Unavailable Unavailab le Jaycee, Nico Jennings MD Unavailable Unavailab le Jaycee, Nico Jennings MD Unavailable Unavailab le Jaycee, Nico Jennings MD Unavailable Unavailab le Jaycee, Nico Jennings MD Unavailable Unavailab le Jaycee, Nico Jennings MD Unavailable Unavailab le Jaycee, Nico Jennings MD Unavailable Unavailab le Jaycee, Nico Jennings MD Unavailable Unavailab le Jaycee, Nico Jennings MD Unavailable Unavailab le Jaycee, Nico Jennings MD Unavailable Unavailab le Jaycee, Nico Jennings MD Unavailable Unavailab le Jaycee, Nico Jennings MD Unavailable Unavailab le Jaycee, Nico Jennings MD Unavailable Unavailab le Jaycee, Nico Jennings MD Unavailable Unavailab le Jaycee, Nico Jennings MD Unavailable Unavailab le Jaycee, Nico Jennings MD Unavailable Unavailab le Jaycee, Nico Jennings MD Unavailable Unavailab le Jaycee, Nico Jennings MD Unavailable Unavailab le Jaycee, Reeseer Dick MD Unavailable Unavailab le Jaycee, Nico Jennings MD Unavailable Unavailab le Jaycee, Nico Jennings MD Unavailable Unavailab le Jaycee, Nico Jennings MD Unavailable Unavailab le Jaycee, Nico Jennings MD Unavailable Unavailab le Jaycee, Nico Jennings MD Unavailable Unavailab le Jaycee, Nico Jennings MD Unavailable Unavailab le Jaycee, Nico Jennings MD Unavailable Unavailab le Jaycee, Nico Jennings MD Unavailable Unavailab le Jaycee, Nico Jennings MD Unavailable Unavailab le Jaycee, Nico Jennings MD Unavailable Unavailab le Jaycee, Nico Jennings MD Unavailable Unavailab le Jaycee, Nico Jennings MD Unavailable Unavailab le Jaycee, Nico Jennings MD Unavailable Unavailab le Jaycee, Nico Jennings MD Unavailable Unavailab le Jaycee, Nico Jennings MD Unavailable Unavailab Elva Choi MD Unavailable Unavailable Elva Becerra MD Unavailable Unavailable Elva Becerra MD Unavailable Unavailable Elva Becerra MD Unavailable Unavailable Elva Becerra MD Unavailable Unavailable Elva Becerra MD Unavailable Unavailable Elva Becerra MD Unavailable Unavailable Elva Becerra MD Unavailable Unavailable Elva Becerra MD Unavailable Unavailable Elva Becerra MD Unavailable Unavailable Elva Becerra MD Unavailable Unavailable Elva Becerra MD Unavailable Unavailable Elva Becerra MD Unavailable Unavailable Elva Becerra MD Unavailable Unavailable Elva Becerra MD Unavailable Unavailable Elva Becerra MD Unavailable Unavailable Elva Becerra MD Unavailable Unavailable Elva Becerra MD Unavailable Unavailable Elva Becerra MD Unavailable Unavailable Elva Becerra MD Unavailable Unavailable Elva Becerra MD Unavailable Unavailable Elva Becerra MD Unavailable Unavailable Elva Becerra MD Unavailable Unavailable Elva Becerra MD Unavailable Unavailable Elva Becerra MD Unavailable Unavailable Elva Becerra MD Unavailable Unavailable Elva Becerra MD Unavailable Unavailable Elva Becerra MD Unavailable Unavailable Elva Becerra MD Unavailable Unavailable Elva Becerra MD Unavailable Unavailable Elva Becerra MD Unavailable Unavailable Elva Becerra MD Unavailable Unavailable Elva Becerra MD Unavailable Unavailable Elva Becerra MD Unavailable Unavailable Elva Becerra MD Unavailable Unavailable Gabris, Ellie Davis MD, [facility] Unavailable Unavailable Gabris, Ellie Davis MD, [facility] Unavailable Unavailable Gabris, Ellie Davis MD, [facility] Unavailable Unavailable Gabris, Ellie Davis MD, [facility] Unavailable Unavailable Gabris, Ellie Davis MD, [facility] Unavailable Unavailable Gabris, Ellie Davis MD, [facility] Unavailable Unavailable Gabris, Ellie aDvis MD, [facility] Unavailable Unavailable Gabris, Ellie Davis MD, [facility] Unavailable Unavailable Gabris, Ellie Davis MD, [facility] Unavailable Unavailable Gabris, Ellie Davis MD, [facility] Unavailable Unavailable Gabris, Ellie Davis MD, [facility] Unavailable Unavailable Gabris, Ellie Davis MD, [facility] Unavailable Unavailable Gabris, Ellie Davis MD, [facility] Unavailable Unavailable Gabris, Ellie Davis MD, [facility] Unavailable Unavailable Gabris, Ellie Davis MD, [facility] Unavailable Unavailable Gabris, Ellie Davis MD, [facility] Unavailable Unavailable Gabris, Ellie Davis MD, [facility] Unavailable Unavailable Gabris, Ellie Davis MD, [facility] Unavailable Unavailable Gabris, Ellie Davis MD, [facility] Unavailable Unavailable Gabris, Ellie Davis MD, [facility] Unavailable Unavailable Gabris, Ellie Davis MD, [facility] Unavailable Unavailable Gabris, Ellie Davis MD, [facility] Unavailable Unavailable Gabris, Ellie Davis MD, [facility] Unavailable Unavailable Gabris, Ellie Davis MD, [facility] Unavailable Unavailable Gabris, Ellie Davis MD, [facility] Unavailable Unavailable Gabris, Ellie Davis MD, [facility] Unavailable Unavailable Gabris, Ellie Davis MD, [facility] Unavailable Unavailable Gabris, Ellie Davis MD, [facility] Unavailable Unavailable Gabris, Ellie Davis MD, [facility] Unavailable Unavailable Gabris, Ellie Davis MD, [facility] Unavailable Unavailable Gabris, Ellie Davis MD, [facility] Unavailable Unavailable Gabris, Ellie Davis MD, [facility] Unavailable Unavailable Gabris, Ellie Davis MD, [facility] Unavailable Unavailable Gabris, Ellie Davis MD, [facility] Unavailable Unavailable Gabris, Ellie Davis MD, [facility] Unavailable Unavailable Gabris, Ellie Davis MD, [facility] Unavailable Unavailable Gabris, Ellie Davis MD, [facility] Unavailable Unavailable Gabris, Ellie Davis MD, [facility] Unavailable Unavailable Gabris, Ellie Davis MD, [facility] Unavailable Unavailable Gabris, Ellie Davis MD, [facility] Unavailable Unavailable Gabris, Ellie Davis MD, [facility] Unavailable Unavailable Gabris, Ellie Davis MD, [facility] Unavailable Unavailable Gabris, Ellie Davis MD, [facility] Unavailable Unavailable Gabris, Ellie Davis MD, [facility] Unavailable Unavailable Gabris, Ellie Davis MD, [facility] Unavailable Unavailable Gabris, Ellie Davis MD, [facility] Unavailable Unavailable Gabris, Ellie Davis MD, [facility] Unavailable Unavailable Gabris, Ellie Davis MD, [facility] Unavailable Unavailable Gabris, Ellie Davis MD, [facility] Unavailable Unavailable Gabris, Ellie Davis MD, [facility] Unavailable Unavailable Gabris, Ellie Davis MD, [facility] Unavailable Unavailable Gabris, Ellie Davis MD, [facility] Unavailable Unavailable Gabris, Ellie Davis MD, [facility] Unavailable Unavailable Gabris, Ellie Davis MD, [facility] Unavailable Unavailable Gabris, Ellie Davis MD, [facility] Unavailable Unavailable Gabris, Ellie Davis MD, [facility] Unavailable Unavailable Gabris, Ellie Davis MD, [facility] Unavailable Unavailable Gabris, Ellie Davis MD, [facility] Unavailable Unavailable Gabris, Ellie Davis MD, [facility] Unavailable Unavailable Gabris, Ellie Davis MD, [facility] Unavailable Unavailable Gabris, Ellie Davis MD, [facility] Unavailable Unavailable Gabris, Ellie Davis MD, [facility] Unavailable Unavailable Gabris, Ellie Davis MD, [facility] Unavailable Unavailable Gabris, Ellie Davis MD, [facility] Unavailable Unavailable Gabris, Ellie Davis MD, [facility] Unavailable Unavailable Gabris, Ellie Davis MD, [facility] Unavailable Unavailable Gabris, Ellie Davis MD, [facility] Unavailable Unavailable Gabris, Ellie Davis MD, [facility] Unavailable Unavailable Gabris, Ellie Davis MD, [facility] Unavailable Unavailable Gabris, Ellie Davis MD, [facility] Unavailable Unavailable Gabris, Ellie Davis MD, [facility] Unavailable Unavailable Gabris, Ellie Davis MD, [facility] Unavailable Unavailable Celine Cotter RN Unavailable Unavailable Celine Cotter RN Unavailable Unavailable Celine Cotter RN Unavailable Unavailable Celine Cotter RN Unavailable Unavailable Celine Cotter RN Unavailable Unavailable Celine Cotter RN Unavailable Unavailable Celine Cotter RN Unavailable Unavailable Celine Cotter RN Unavailable Unavailable Celine Cotter RN Unavailable Unavailable Celine Cotter RN Unavailable Unavailable Celine Cotter RN Unavailable Unavailable Celine Cotter RN Unavailable Unavailable Celine Cotter RN Unavailable Unavailable Celine Cotter RN Unavailable Unavailable Celine Cotter RN Unavailable Unavailable Celine Cotter RN Unavailable Unavailable Celine Cotter RN Unavailable Unavailable FIORELLA, ELPIDIO PA Unavailable Unavailable FIORELLA, ELPIDIO PA Unavailable Unavailable FIORELLA, ELPIDIO PA Unavailable Unavailable FIORELLA, ELPIDIO PA Unavailable Unavailable FIORELLA, ELPIDIO PA Unavailable Unavailable FIORELLA, ELPIDIO PA Unavailable Unavailable FIORELLA, ELPIDIO PA Unavailable Unavailable FIORELLA, ELPIDIO PA Unavailable Unavailable FIORELLA, ELPIDIO PA Unavailable Unavailable FIORELLA, ELPIDIO PA Unavailable Unavailable FIORELLA, ELPIDIO PA Unavailable Unavailable FIORELLA, ELPIDIO PA Unavailable Unavailable FIORELLA, ELPIDIO PA Unavailable Unavailable FIORELLA, ELPIDIO PA Unavailable Unavailable FIORELLA, ELPIDIO PA Unavailable Unavailable FIORELLA, ELPIDIO PA Unavailable Unavailable FIORELLA, ELPIDIO PA Unavailable Unavailable FIORELLA, ELPIDIO PA Unavailable Unavailable FIORELLA, ELPIDIO PA Unavailable Unavailable FIORELLA, ELPIDIO PA Unavailable Unavailable FIORELLA, ELPIDIO PA Unavailable Unavailable FIORELLA, ELPIDIO PA Unavailable Unavailable FIORELLA, ELPIDIO PA Unavailable Unavailable FIORELLA, ELPIDIO PA Unavailable Unavailable FIORELLA, ELPIDIO PA Unavailable Unavailable FIORELLA, ELPIDIO PA Unavailable Unavailable FIORELLA, ELPIDIO PA Unavailable Unavailable FIORELLA, ELPIDIO PA Unavailable Unavailable FIORELLA, ELPIDIO PA Unavailable Unavailable FIORELLA, ELPIDIO PA Unavailable Unavailable FIORELLA, ELPIDIO PA Unavailable Unavailable FIORELLA, ELPIDIO PA Unavailable Unavailable FIORELLA, ELPIDIO PA Unavailable Unavailable FIORELLA, ELPIDIO PA Unavailable Unavailable FIORELLA, ELPIDIO PA Unavailable Unavailable FIORELLA, ELPIDIO PA Unavailable Unavailable Roberto, Raeann PA Unavailable Unavailable Roberto, Raeann PA Unavailable Unavailable Roberto, Raeann PA Unavailable Unavailable Roberto, Raeann PA Unavailable Unavailable Roberto, Raeann PA Unavailable Unavailable Roberto, Raeann PA Unavailable Unavailable Roberto, Raeann PA Unavailable Unavailable Roberto, Raeann PA Unavailable Unavailable Roberto, Raeann PA Unavailable Unavailable Roberto, Raeann PA Unavailable Unavailable Roberto, Raeann PA Unavailable Unavailable Roberto, Raeann PA Unavailable Unavailable Roberto, Raeann PA Unavailable Unavailable Roberto, Raeann PA Unavailable Unavailable Roberto, Raeann PA Unavailable Unavailable Roberto, Raeann PA Unavailable Unavailable Roberto, Raeann PA Unavailable Unavailable Roberto, Raeann PA Unavailable Unavailable Roberto, Raeann PA Unavailable Unavailable Roberto, Raeann PA Unavailable Unavailable Roberto, Raeann PA Unavailable Unavailable Roberto, Raeann PA Unavailable Unavailable Roberto, Raeann PA Unavailable Unavailable Roberto, Raeann PA Unavailable Unavailable Roberto, Raeann PA Unavailable Unavailable Roberto, Raeann PA Unavailable Unavailable Roberto, Raeann PA Unavailable Unavailable Roberto, Raeann PA Unavailable Unavailable Roberto, Raeann PA Unavailable Unavailable Roberto, Raeann PA Unavailable Unavailable Roberto, Raeann PA Unavailable Unavailable Roberto, Raeann PA Unavailable Unavailable Roberto, Raeann PA Unavailable Unavailable Roberto, Raeann PA Unavailable Unavailable Roberto, Raeann PA Unavailable Unavailable Roberto, Raeann PA Unavailable Unavailable Roberto, Raeann PA Unavailable Unavailable Roberto, Raeann PA Unavailable Unavailable Roberto, Raeann PA Unavailable Unavailable Roberto, Raeann PA Unavailable Unavailable Roberto, Raeann PA Unavailable Unavailable Roberto, Raeann PA Unavailable Unavailable Roberto, Raeann PA Unavailable Unavailable Roberto, Raeann PA Unavailable Unavailable Roberto, Raeann PA Unavailable Unavailable Roberto, Raeann PA Unavailable Unavailable Roberto, Raeann PA Unavailable Unavailable Roberto, Raeann PA Unavailable Unavailable Roberto, Raeann PA Unavailable Unavailable Roberto, Raeann PA Unavailable Unavailable Roberto, Raeann PA Unavailable Unavailable Roberto, Raeann PA Unavailable Unavailable Roberto, Raeann PA Unavailable Unavailable Roberto, Raeann PA Unavailable Unavailable Roberto, Raeann PA Unavailable Unavailable Roberto, Raeann PA Unavailable Unavailable Roberto, Raeann PA Unavailable Unavailable Roberto, Raeann PA Unavailable Unavailable Roberto, Raeann PA Unavailable Unavailable Roberto, Raeann PA Unavailable Unavailable Roberto, Raeann PA Unavailable Unavailable Roberto, Raeann PA Unavailable Unavailable NON, PHYSICIAN STAFF Unavailable Unavailable Re-disclosure Warning The records that you are about to access may contain information from federally-assisted alcohol or drug abuse programs. If such information is present, then the following federally mandated warning applies: This information has been disclosed to you from records protected by federal confidentiality rules (42 CFR part 2). The federal rules prohibit you from making any further disclosure of this information unless further disclosure is expressly permitted by the written consent of the person to whom it pertains or as otherwise permitted by 42 CFR part 2. A general authorization for the release of medical or other information is NOT sufficient for this purpose. The Federal rules restrict any use of the information to criminally investigate or prosecute any alcohol or drug abuse patient.The records that you are about to access may contain highly sensitive health information, the redisclosure of which is protected by Article 27-F of the [facility] Public Health law. If you continue you may have access to information: Regarding HIV / AIDS; Provided by facilities licensed or operated by the [facility] Office of Mental Health; or Provided by the [facility] Office for People With Developmental Disabilities. If such information is present, then the following [facility] mandated warning applies: This information has been disclosed to you from confidential records which are protected by state law. State law prohibits you from making any further disclosure of this information without the specific written consent of the person to whom it pertains, or as otherwise permitted by law. Any unauthorized further disclosure in violation of state law may result in a fine or care home sentence or both. A general authorization for the release of medical or other information is NOT sufficient authorization for further disc losure. Allergies and Adverse Reactions Type Description Substance Reaction Status Data Source(s ) No Known Environmental Allergies No Known Environmental Al lergies [facility] No Known Food Allergies No Known Food Allergies [facility] to adverse [facility] N[facility]ROXEN [facility] Drug allergy ASPIRIN ASPIRIN [facility] Family History Family Member Name Family Member Gender Family Member Status Date o f Status Description Data Source(s) Unknown Unknown Problem MEDENT ([facility]) Unknown Female Problem MEDENT ([facility]) Unknown Female Problem MEDENT ([facility]) Encounters Encounter Providers Location Date Indications Data Source(s ) Outpatient Attender: Dick Champion MDReferrer: Raeann COLINDRES 06/08/2021 07:30:56 PM EDT [facility] Recurring Patient Referrer: Raeann COLINDRES 06/07/2021 01:03:29 PM EDT [facility] Outpatient Attender: Ryan Quan MD, [facility] [email or web address] 04/20/2021 12:00:00 AM EDT - 04/20/2021 01:47:31 PM EDT [facility] Outpatient [address] [facility] [address] 03/06/2021 12:00:00 AM EDT eCW1 ([facility]) Outpatient [address] [facility] [place] [address] 02/28/2021 12:00:00 AM EDT eCW1 ([facility]) [place]patient [address] [facility] [address] 02/17/2021 12:00:00 AM EDT eCW1 ([facility]) Unknown [address] [facility] [address] 02/17/2021 12:00:00 AM EDT eCW1 ([facility]) Outpatient Attender: Dick Champion MDReferrer: Raeann COLINDRES 02/10/2021 07:45:17 AM EDT [facility] Outpatient [address] [facility] [address] 02/06/2021 12:00:00 AM EDT eCW1 ([facility]) (PN Proc 45) Pain Procedure 45 [address] [place] [address] 01/23/2021 12:00:00 AM EDT eCW1 ([facility]) Unknown [address] [facility], [facility] [address] 01/20/2021 12:00:00 AM EDT eCW1 ([facility]) [place] [address] [facility] [address] 01/12/2021 12:00:00 AM EDT eCW1 ([facility]) [place] [address] [facility] [place] [address] 01/10/2021 12:00:00 AM EDT eCW1 ([facility]) Unknown [address] [facility] [address] 01/02/2021 12:00:00 AM EDT eCW1 ([facility]) Unknown [address] [facility] [place] [address] 12/19/2020 12:00:00 AM EDT eCW1 ([facility]) Outpatient [facility] [facility] [place] [address] 12/19/2020 12:00:00 AM EDT eCW1 ([facility]) Outpatient Attender: Elva Becerra MDConsultant: STAFF NON 12/07/2020 09:30:00 AM EST - 12/07/2020 11:50:00 AM EST [facility] Patient discharged. [place] [address] [facility] [address] 12/05/2020 12:00:00 AM EST eCW1 ([facility]) Outpatient Attender: Elva Becerra MDConsultant: STAFF NON 11/16/2020 07:30:00 AM EST - 11/16/2020 10:00:00 AM EST [facility] Patient discharged. Outpatient Attender: Elva Becerra MDConsultant: STAFF NON 11/11/2020 08:47:53 AM EST - 11/14/2020 12:20:00 PM EST [facility] Patient discharged. Outpatient Attender: Celine Cotter RNReferrer: Celine [email or web address] 10/27/2020 01:30:33 PM EST - 10/27/2020 02:22:13 PM EST [facility] Outpatient Attender: Ryan Quan MD, [place] r: Celine [email or web address] 10/27/2020 12:00:00 AM EST - 10/27/2020 02:23:01 PM EST [facility] Outpatient Attender: Dick Champion MDReferrer: Raeann COLINDRES 10/22/2020 01:25:40 PM EST [facility] [place] [address] [facility] [address] 10/20/2020 12:00:00 AM EST eCW1 ([facility]) [place] [address] [facility] [address] 10/19/2020 12:00:00 AM EST eCW1 ([facility]) [place] [address] [facility] [address] 10/14/2020 12:00:00 AM EST eCW1 ([facility]) Outpatient Attender: ELPIDIO farris 10/06/2020 12:00:00 PM EST MEDENT ([facility]) Outpatient [address] [facility] [address] 09/19/2020 12:00:00 AM EST eCW1 ([facility]) Outpatient Attender: ELPIDIO farris 09/15/2020 10:30:00 AM EST MEDENT ([facility]) Outpatient [address] [facility] [address] 09/06/2020 12:00:00 AM EST eCW1 ([facility]) (PN Proc 45) Pain Procedure 45 [address] [place] [id number] 09/05/2020 12:00:00 AM EST eCW1 ([facility]) Outpatient [address] [facility] [address] 08/05/2020 12:00:00 AM EST eCW1 ([facility]) [facility] [address] [facility] [address] 08/02/2020 12:00:00 AM EST eCW1 ([facility]) Outpatient Attender: Dick Champion MDReferrer: Raeann COLINDRES 07/22/2020 07:35:33 AM EDT [facility] [facility] Rec[facility]ring Patient Referrer: Raeann COLINDRES 07/20/2020 02:19:29 PM EDT [facility] Recurring Patient Referrer: Raeann COLINDRES 07/20/2020 02:19:10 PM EDT [facility] (PN Proc 60) Pain Procedure 60 [address] [place] [address] 07/19/2020 12:00:00 AM EDT eCW1 ([facility]) Unknown [address] [facility] [id number] 07/18/2020 12:00:00 AM EDT eCW1 ([facility]) Unknown [address] [facility] [id number] 07/14/2020 12:00:00 AM EDT eCW1 ([facility]) Immunizations Vaccine Date Status Description Data Source(s) COVID-19 VACC, MRNA(PFIZER)/PF 03/27/2021 12:00:00 AM EDT completed [facility] COVID-19 VACCINE Pfizer 03/26/2021 12:00:00 AM EDT completed [facility] Vaccine Series Complete: YESThis Data wa s Submitted to [facility] Via [employer]. COVID-19 VACC, MRNA(PFIZER)/PF 03/06/2021 12:00:00 AM EDT completed [facility] COVID-19 VACCINE Pfizer 03/06/2021 12:00:00 AM EDT completed [facility] Vaccine Series Complete: NOThis Data was Submitted to [facility] Via [employer]. INFLUENZA VACCINE QUADRIVALENT 2019- (65 YR UP)/MF59 C.1/PF 08/11/2020 12:00:00 AM EST completed [facility] Medications Medication Brand Name Start Date Product Form Dose Route Admi nistrative Instructions Pharmacy Instructions Status Indications Reaction Description Data Source(s) 40 mg 08/22/2021 12:00:00 AM EST tablet 60 TAKE ONE TABLET BY MOUTH TWICE A DAY TAKE ONE TABLET BY MOUTH TWICE A DAY SOLD: 08/28/2021 [facility] 40 mg 08/22/2021 12:00:00 AM EST tablet 30 TAKE ONE TABLET BY MOUTH EVERY DAY TAKE ONE TABLET BY MOUTH EVERY DAY SOLD: 08/28/2021 [facility] Amoxicillin 875 MG / Clavulanate 125 MG Oral Tablet 87 5-125 mg AMOXICILLIN/POTASSIUM CLAV 07/29/2021 12:00:00 AM EDT tablet 20 TAKE ONE TABLET BY MOUTH TWICE A DAY FOR 10 DAYS TAKE ONE TABLET BY MOUTH TWICE A DAY FOR 10 DAYS SOLD: 08/01/2021 [facility] 240 mg 07/13/2021 12:00:00 AM EDT tablet extended release 30 TAKE ONE TABLET BY MOUTH EVERY DAY IN THE MORNING WITH FOOD TAKE ONE TABLET BY MOUTH EVERY DAY IN THE MORNING WITH FOOD SOLD: 07/18/2021 [facility] 40 mg 07/13/2021 12:00:00 AM EDT tablet 30 TAKE ONE TABLET BY MOUTH EVERY DAY TAKE ONE TABLET BY MOUTH EVERY DAY SOLD: 07/18/2021 [facility] 240 mg 07/13/2021 12:00:00 AM EDT tablet extended release 30 TAKE ONE TABLET BY MOUTH EVERY DAY IN THE MORNING WITH FOOD TAKE ONE TABLET BY MOUTH EVERY DAY IN THE MORNING WITH FOOD SOLD: 08/28/2021 [facility] 40 mg 07/13/2021 12:00:00 AM EDT tablet 60 TAKE ONE TABLET BY MOUTH TWICE A DAY TAKE ONE TABLET BY MOUTH TWICE A DAY SOLD: 07/18/2021 [facility] 240 mcg/0.7 mL 06/28/2021 12:00:00 AM EDT syringe 0 INJECT DIRECTED INJECT DIRECTED SOLD: 06/28/2021 [facility] 5 mg 06/14/2021 12:00:00 AM EDT tablet 60 TAKE ONE TABLET BY MOUTH TWICE A DAY TAKE ONE TABLET BY MOUTH TWICE A DAY SOLD: 08/28/2021 [facility] 5 mg 06/14/2021 12:00:00 AM EDT tablet 60 TAKE ONE TABLET BY MOUTH TWICE A DAY TAKE ONE TABLET BY MOUTH TWICE A DAY SOLD: 07/18/2021 [facility] 40 mg 06/14/2021 12:00:00 AM EDT tablet 30 TAKE ONE TABLET BY MOUTH EVERY DAY TAKE ONE TABLET BY MOUTH EVERY DAY SOLD: 06/16/2021 [facility] 40 mg 06/14/2021 12:00:00 AM EDT tablet 60 TAKE ONE TABLET BY MOUTH TWICE A DAY TAKE ONE TABLET BY MOUTH TWICE A DAY SOLD: 06/16/2021 [facility] 5 mg 06/14/2021 12:00:00 AM EDT tablet 60 TAKE ONE TABLET BY MOUTH TWICE A DAY TAKE ONE TABLET BY MOUTH TWICE A DAY SOLD: 06/16/2021 [facility] 40 mg 05/12/2021 12:00:00 AM EDT tablet 30 TAKE ONE TABLET BY MOUTH EVERY DAY TAKE ONE TABLET BY MOUTH EVERY DAY SOLD: 05/16/2021 [facility] 40 mg 05/10/2021 12:00:00 AM EDT tablet 60 TAKE ONE TABLET BY MOUTH TWICE A DAY TAKE ONE TABLET BY MOUTH TWICE A DAY SOLD: 05/16/2021 [facility] Amoxicillin 875 MG / Clavulanate 125 MG Oral Tablet 87 5-125 mg AMOXICILLIN/POTASSIUM CLAV 04/27/2021 12:00:00 AM EDT tablet 20 TAKE ONE TABLET BY MOUTH TWICE A DAY TAKE ONE TABLET BY MOUTH TWICE A DAY SOLD: 04/28/2021 [facility] Amoxicillin 875 MG / Clavulanate 125 MG Oral Tablet 87 5-125 mg AMOXICILLIN/POTASSIUM CLAV 04/27/2021 12:00:00 AM EDT tablet 20 TAKE ONE TABLET BY MOUTH TWICE A DAY TAKE ONE TABLET BY MOUTH TWICE A DAY SOLD: 07/12/2021 [facility] 1,250 mcg (50,000 unit) 04/10/2021 12:00:00 AM EDT capsule 1 TAKE ONE CAPSULE BY MOUTH ONCE A MONTH TAKE ONE CAPSULE BY MOUTH ONCE A MONTH SOLD: 06/16/2021 [facility] 40 mg 04/10/2021 12:00:00 AM EDT tablet 30 TAKE ONE TABLET BY MOUTH EVERY DAY TAKE ONE TABLET BY MOUTH EVERY DAY SOLD: 04/15/2021 [facility] 40 mg 04/10/2021 12:00:00 AM EDT tablet 60 TAKE ONE TABLET BY MOUTH TWICE A DAY TAKE ONE TABLET BY MOUTH TWICE A DAY SOLD: 04/15/2021 [facility] 1,250 mcg (50,000 unit) 04/10/2021 12:00:00 AM EDT capsule 1 TAKE ONE CAPSULE BY MOUTH ONCE A MONTH TAKE ONE CAPSULE BY MOUTH ONCE A MONTH SOLD: 07/18/2021 [facility] 1,250 mcg (50,000 unit) 04/10/2021 12:00:00 AM EDT capsule 1 TAKE ONE CAPSULE BY MOUTH ONCE A MONTH TAKE ONE CAPSULE BY MOUTH ONCE A MONTH SOLD: 04/15/2021 [facility] 1,250 mcg (50,000 unit) 04/10/2021 12:00:00 AM EDT capsule 1 TAKE ONE CAPSULE BY MOUTH ONCE A MONTH TAKE ONE CAPSULE BY MOUTH ONCE A MONTH SOLD: 05/16/2021 [facility] 1,250 mcg (50,000 unit) 03/10/2021 12:00:00 AM EDT capsule 1 TAKE ONE CAPSULE BY MOUTH ONCE A MONTH TAKE ONE CAPSULE BY MOUTH ONCE A MONTH SOLD: 08/28/2021 [facility] 1,250 mcg (50,000 unit) 03/10/2021 12:00:00 AM EDT capsule 1 TAKE ONE CAPSULE BY MOUTH ONCE A MONTH TAKE ONE CAPSULE BY MOUTH ONCE A MONTH SOLD: 03/15/2021 [facility] 40 mg 03/10/2021 12:00:00 AM EDT tablet 30 TAKE ONE TABLET BY MOUTH EVERY DAY TAKE ONE TABLET BY MOUTH EVERY DAY SOLD: 03/15/2021 [facility] 40 mg 03/10/2021 12:00:00 AM EDT tablet 60 TAKE ONE TABLET BY MOUTH TWICE A DAY TAKE ONE TABLET BY MOUTH TWICE A DAY SOLD: 03/15/2021 [facility] 5 mg 02/10/2021 12:00:00 AM EDT tablet 60 TAKE ONE TABLET BY MOUTH TWICE A DAY TAKE ONE TABLET BY MOUTH TWICE A DAY SOLD: 02/12/2021 [facility] 40 mg 02/10/2021 12:00:00 AM EDT tablet 60 TAKE ONE TABLET BY MOUTH TWICE A DAY TAKE ONE TABLET BY MOUTH TWICE A DAY SOLD: 02/12/2021 [facility] 5 mg 02/10/2021 12:00:00 AM EDT tablet 60 TAKE ONE TABLET BY MOUTH TWICE A DAY TAKE ONE TABLET BY MOUTH TWICE A DAY SOLD: 05/16/2021 [facility] 5 mg 02/10/2021 12:00:00 AM EDT tablet 60 TAKE ONE TABLET BY MOUTH TWICE A DAY TAKE ONE TABLET BY MOUTH TWICE A DAY SOLD: 04/15/2021 [facility] 40 mg 02/10/2021 12:00:00 AM EDT tablet 30 TAKE ONE TABLET BY MOUTH EVERY DAY TAKE ONE TABLET BY MOUTH EVERY DAY SOLD: 02/12/2021 [facility] 1,250 mcg (50,000 unit) 02/10/2021 12:00:00 AM EDT capsule 1 TAKE 1 CAPSULE BY MOUTH ONCE A MONTH TAKE 1 CAPSULE BY MOUTH ONCE A MONTH SOLD: 02/12/2021 [facility] 5 mg 02/10/2021 12:00:00 AM EDT tablet 60 TAKE ONE TABLET BY MOUTH TWICE A DAY TAKE ONE TABLET BY MOUTH TWICE A DAY SOLD: 03/15/2021 [facility] Amoxicillin 875 MG / Clavulanate 125 MG Oral Tablet Amoxicillin-Pot Clavulanate 875-125 MG Amoxicillin-Pot Clavulanate 875-125 MG 01/14/2021 12:00:00 AM ED T 1.0 {tablet} active Amoxicillin-Pot Cla vulanate 875-125 MG W1 ([facility]) Amoxicillin 875 MG / Clavulanate 125 MG Oral Tablet Amoxicillin-Pot Clavulanate 875-125 MG Amoxicillin-Pot Clavulanate 875-125 MG 01/14/2021 12:00:00 AM ED T 1.0 {tablet} active Amoxicillin-Pot Cla vulanate 875-125 MG eCW1 ([facility]) Amoxicillin 875 MG / Clavulanate 125 MG Oral Tablet Amoxicillin-Pot Clavulanate 875-125 MG Amoxicillin-Pot Clavulanate 875-125 MG 01/14/2021 12:00:00 AM ED T 1.0 {tablet} suspended Amoxicillin-Pot C lavulanate 875-125 MG eCW1 ([facility]) Amoxicillin 875 MG / Clavulanate 125 MG Oral Tablet Amoxicillin-Pot Clavulanate 875-125 MG Amoxicillin-Pot Clavulanate 875-125 MG 01/14/2021 12:00:00 AM ED T 1.0 {tablet} active Amoxicillin-Pot Cla vulanate 875-125 MG eCW1 ([facility]) Amoxicillin 875 MG / Clavulanate 125 MG Oral Tablet Amoxicillin-Pot Clavulanate 875-125 MG Amoxicillin-Pot Clavulanate 875-125 MG 01/14/2021 12:00:00 AM ED T 1.0 {tablet} suspended Amoxicillin-Pot C lavulanate 875-125 MG eCW1 ([facility]) Amoxicillin 875 MG / Clavulanate 125 MG Oral Tablet Amoxicillin-Pot Clavulanate 875-125 MG Amoxicillin-Pot Clavulanate 875-125 MG 01/14/2021 12:00:00 AM ED T 1.0 {tablet} suspended Amoxicillin-Pot C lavulanate 875-125 MG eCW1 ([facility]) Amoxicillin 875 MG / Clavulanate 125 MG Oral Tablet 87 5-125 mg AMOXICILLIN/POTASSIUM CLAV 01/13/2021 12:00:00 AM EDT tablet 20 TAKE ONE TABLET BY MOUTH TWICE A DAY FOR 10 DAYS TAKE ONE TABLET BY MOUTH TWICE A DAY FOR 10 DAYS SOLD: 01/26/2021 [facility] Amoxicillin 875 MG / Clavulanate 125 MG Oral Tablet 87 5-125 mg AMOXICILLIN/POTASSIUM CLAV 01/13/2021 12:00:00 AM EDT tablet 20 TAKE ONE TABLET BY MOUTH TWICE A DAY FOR 10 DAYS TAKE ONE TABLET BY MOUTH TWICE A DAY FOR 10 DAYS SOLD: 01/14/2021 [facility] Amoxicillin 875 MG / Clavulanate 125 MG Oral Tablet 87 5-125 mg AMOXICILLIN/POTASSIUM CLAV 01/13/2021 12:00:00 AM EDT tablet 20 TAKE ONE TABLET BY MOUTH TWICE A DAY FOR 10 DAYS TAKE ONE TABLET BY MOUTH TWICE A DAY FOR 10 DAYS SOLD: 03/20/2021 [facility] 240 mg 01/10/2021 12:00:00 AM EDT tablet extended release 30 TAKE ONE TABLET BY MOUTH EVERY MORNING WITH FOOD TAKE ONE TABLET BY MOUTH EVERY MORNING [facility] FOOD SOLD: 02/12/2021 [facility] 240 mg 01/10/2021 12:00:00 AM EDT tablet extended release 30 TAKE ONE TABLET BY MOUTH EVERY MORNING WITH FOOD TAKE ONE TABLET BY MOUTH EVERY MORNING [facility] FOOD SOLD: 06/16/2021 [facility] 40 mg 01/10/2021 12:00:00 AM EDT tablet 30 TAKE ONE TABLET BY MOUTH EVERY DAY TAKE ONE TABLET BY MOUTH EVERY DAY SOLD: 01/14/2021 [facility] 240 mg 01/10/2021 12:00:00 AM EDT tablet extended release 30 TAKE ONE TABLET BY MOUTH EVERY MORNING WITH FOOD TAKE ONE TABLET BY MOUTH EVERY MORNING [facility] FOOD SOLD: 03/15/2021 [facility] 240 mg 01/10/2021 12:00:00 AM EDT tablet extended release 30 TAKE ONE TABLET BY MOUTH EVERY MORNING WITH FOOD TAKE ONE TABLET BY MOUTH EVERY MORNING [facility] FOOD SOLD: 04/15/2021 [facility] 240 mg 01/10/2021 12:00:00 AM EDT tablet extended release 30 TAKE ONE TABLET BY MOUTH EVERY MORNING WITH FOOD TAKE ONE TABLET BY MOUTH EVERY MORNING [facility] FOOD SOLD: 01/14/2021 [facility] 240 mg 01/10/2021 12:00:00 AM EDT tablet extended release 30 TAKE ONE TABLET BY MOUTH EVERY MORNING WITH FOOD TAKE ONE TABLET BY MOUTH EVERY MORNING [facility] FOOD SOLD: 05/16/2021 [facility] 40 mg 01/10/2021 12:00:00 AM EDT tablet 60 TAKE ONE TABLET BY MOUTH TWICE A DAY TAKE ONE TABLET BY MOUTH TWICE A DAY SOLD: 01/14/2021 [facility] 875-125 mg 12/31/2020 12:00:00 AM EDT tablet 20 TAKE ONE TABLET BY MOUTH TWICE A DAY FOR 10 DAYS TAKE ONE TABLET BY MOUTH TWICE A DAY FOR 10 DAYS SOLD: 01/02/2021 [facility] Amoxicillin 875 MG / Clavulanate 125 MG Oral Tablet 87 5-125 mg AMOXICILLIN/POTASSIUM CLAV 12/31/2020 12:00:00 AM EDT tablet 20 TAKE ONE TABLET BY MOUTH TWICE A DAY FOR 10 DAYS TAKE ONE TABLET BY MOUTH TWICE A DAY FOR 10 DAYS SOLD: 06/16/2021 [facility] Amoxicillin 875 MG / Clavulanate 125 MG Oral Tablet 87 5-125 mg AMOXICILLIN/POTASSIUM CLAV 12/31/2020 12:00:00 AM EDT tablet 20 TAKE ONE TABLET BY MOUTH TWICE A DAY FOR 10 DAYS TAKE ONE TABLET BY MOUTH TWICE A DAY FOR 10 DAYS SOLD: 05/20/2021 [facility] 40 mg 12/12/2020 12:00:00 AM EDT tablet 60 TAKE ONE TABLET BY MOUTH TWICE A DAY TAKE ONE TABLET BY MOUTH TWICE A DAY SOLD: 12/14/2020 [facility] 40 mg 12/12/2020 12:00:00 AM EDT tablet 30 TAKE ONE TABLET BY MOUTH EVERY DAY TAKE ONE TABLET BY MOUTH EVERY DAY SOLD: 12/14/2020 [facility] 0.3 % 12/03/2020 12:00:00 AM EST drops 5 INSTILL ONE DROP IN THE RIGHT EYE FOUR TIMES A DAY, START 3 DAYS BEFORE SURGERY INSTILL ONE DROP IN THE RIGHT EYE FOUR TIMES A DAY, START 3 DAYS BEFORE SURGERY SOLD: 12/05/2020 [facility] 2 % 11/17/2020 12:00:00 AM EST drops 15 INSTILL ONE DROP INTO LEFT EYE FOUR TIMES A DAY INSTILL ONE DROP INTO LEFT EYE FOUR TIMES A DAY SOLD: 11/17/2020 [facility] 0.3 % 11/14/2020 12:00:00 AM EST drops 5 APPLY 1 DROP INTO RIGHT EYE THREE TIMES A DAY STARTING 3 DAYS PRIOR TO SURGERY APPLY 1 DROP INTO RIGHT EYE THREE TIMES A DAY STARTING 3 DAYS PRIOR TO SURGERY SOLD: 11/14/2020 [facility] 40 mg 11/14/2020 12:00:00 AM EST tablet 30 TAKE ONE TABLET BY MOUTH EVERY DAY TAKE ONE TABLET BY MOUTH EVERY DAY SOLD: 11/17/2020 [facility] 0.5 % 11/14/2020 12:00:00 AM EST drops 5 APPLY ONE DROP INTO LEFT EYE FOUR TIMES A DAY STARTING 3 DAYS PRIOR TO SURGERY APPLY ONE DROP INTO LEFT EYE FOUR TIMES A DAY STARTING 3 DAYS PRIOR TO SURGERY SOLD: 11/14/2020 [facility] 40 mg 11/14/2020 12:00:00 AM EST tablet 60 TAKE ONE TABLET BY MOUTH TWICE A DAY TAKE ONE TABLET BY MOUTH TWICE A DAY SOLD: 11/17/2020 [facility] 0.5 % 11/14/2020 12:00:00 AM EST drops 5 APPLY ONE DROP INTO LEFT EYE FOUR TIMES A DAY STARTING 3 DAYS PRIOR TO SURGERY APPLY ONE DROP INTO LEFT EYE FOUR TIMES A DAY STARTING 3 DAYS PRIOR TO SURGERY SOLD: 12/05/2020 [facility] 875-125 mg 10/20/2020 12:00:00 AM EST tablet 20 TAKE ONE TABLET BY MOUTH TWICE A DAY FOR 10 DAYS TAKE ONE TABLET BY MOUTH TWICE A DAY FOR 10 DAYS SOLD: 12/05/2020 [facility] 875-125 mg 10/20/2020 12:00:00 AM EST tablet 20 TAKE ONE TABLET BY MOUTH TWICE A DAY FOR 10 DAYS TAKE ONE TABLET BY MOUTH TWICE A DAY FOR 10 DAYS SOLD: 10/21/2020 [facility] 875-125 mg 10/20/2020 12:00:00 AM EST tablet 20 TAKE ONE TABLET BY MOUTH TWICE A DAY FOR 10 DAYS TAKE ONE TABLET BY MOUTH TWICE A DAY FOR 10 DAYS SOLD: 11/22/2020 [facility] 90 mcg/actuation 10/18/2020 12:00:00 AM EST HFA aerosol inha ler 8 INHALE TWO PUFFS BY MOUTH EVERY 4 HOURS NEEDED INHALE TWO PUFFS BY MOUTH EVERY 4 HOURS NEEDED SOLD: 10/19/2020 [facility] 40 mg 10/15/2020 12:00:00 AM EST tablet 60 TAKE ONE TABLET BY MOUTH TWICE A DAY TAKE ONE TABLET BY MOUTH TWICE A DAY SOLD: 10/19/2020 [facility] 40 mg 10/15/2020 12:00:00 AM EST tablet 30 TAKE ONE TABLET BY MOUTH EVERY DAY TAKE ONE TABLET BY MOUTH EVERY DAY SOLD: 10/19/2020 [facility] 100 mg 10/06/2020 12:00:00 AM EST capsule 20 TAKE ONE CAPSULE BY MOUTH TWICE A DAY FOR 10 DAYS TAKE ONE CAPSULE BY MOUTH TWICE A DAY FOR 10 DAYS SOLD : 10/06/2020 [facility] Doxycycline Monohydrate 100 MG Oral Capsule Doxycycline [place] hydrate 10/06/2020 12:00:00 AM EST ORAL active M EDENT ([facility]) 5 mg 09/15/2020 12:00:00 AM EST tablet 60 TAKE ONE TABLET BY MOUTH TWICE A DAY TAKE ONE TABLET BY MOUTH TWICE A DAY SOLD: 12/14/2020 [facility] 1,250 mcg (50,000 unit) 09/15/2020 12:00:00 AM EST capsule 1 TAKE ONE CAPSULE BY MOUTH ONCE MONTH TAKE ONE CAPSULE BY MOUTH ONCE MONTH SOLD: 01/14/2021 [facility] 5 mg 09/15/2020 12:00:00 AM EST tablet 60 TAKE ONE TABLET BY MOUTH TWICE A DAY TAKE ONE TABLET BY MOUTH TWICE A DAY SOLD: 01/14/2021 [facility] Doxycycline Monohydrate 100 MG Oral Capsule Doxycycline [place] hydrate 09/15/2020 12:00:00 AM EST ORAL completed MEDENT ([facility]) 100 mg 09/15/2020 12:00:00 AM EST capsule 20 TAKE ONE CAPSULE BY MOUTH TWICE A DAY FOR 10 DAYS TAKE ONE CAPSULE BY MOUTH TWICE A DAY FOR 10 DAYS SOLD : 09/15/2020 [facility] 1,250 mcg (50,000 unit) 09/15/2020 12:00:00 AM EST capsule 1 TAKE ONE CAPSULE BY MOUTH ONCE MONTH TAKE ONE CAPSULE BY MOUTH ONCE MONTH SOLD: 12/14/2020 [facility] 1,250 mcg (50,000 unit) 09/15/2020 12:00:00 AM EST capsule 1 TAKE ONE CAPSULE BY MOUTH ONCE MONTH TAKE ONE CAPSULE BY MOUTH ONCE MONTH SOLD: 09/17/2020 [facility] 40 mg 09/15/2020 12:00:00 AM EST tablet 30 TAKE ONE TABLET BY MOUTH EVERY DAY TAKE ONE TABLET BY MOUTH EVERY DAY SOLD: 09/17/2020 [facility] 5 mg 09/15/2020 12:00:00 AM EST tablet 60 TAKE ONE TABLET BY MOUTH TWICE A DAY TAKE ONE TABLET BY MOUTH TWICE A DAY SOLD: 10/19/2020 [facility] 1,250 mcg (50,000 unit) 09/15/2020 12:00:00 AM EST capsule 1 TAKE ONE CAPSULE BY MOUTH ONCE MONTH TAKE ONE CAPSULE BY MOUTH ONCE MONTH SOLD: 11/17/2020 [facility] 5 mg 09/15/2020 12:00:00 AM EST tablet 60 TAKE ONE TABLET BY MOUTH TWICE A DAY TAKE ONE TABLET BY MOUTH TWICE A DAY SOLD: 11/17/2020 [facility] 1,250 mcg (50,000 unit) 09/15/2020 12:00:00 AM EST capsule 1 TAKE ONE CAPSULE BY MOUTH ONCE MONTH TAKE ONE CAPSULE BY MOUTH ONCE MONTH SOLD: 10/19/2020 [facility] 40 mg 09/15/2020 12:00:00 AM EST tablet 60 TAKE ONE TABLET BY MOUTH TWICE A DAY TAKE ONE TABLET BY MOUTH TWICE A DAY SOLD: 09/17/2020 [facility] 5 mg 09/15/2020 12:00:00 AM EST tablet 60 TAKE ONE TABLET BY MOUTH TWICE A DAY TAKE ONE TABLET BY MOUTH TWICE A DAY SOLD: 09/17/2020 [facility] 40 mg 08/18/2020 12:00:00 AM EST tablet 30 TAKE ONE TABLET BY MOUTH EVERY DAY TAKE ONE TABLET BY MOUTH EVERY DAY SOLD: 08/21/2020 [facility] 40 mg 08/18/2020 12:00:00 AM EST tablet 60 TAKE ONE TABLET BY MOUTH TWICE A DAY TAKE ONE TABLET BY MOUTH TWICE A DAY SOLD: 08/21/2020 [facility] 1,250 mcg (50,000 unit) 08/18/2020 12:00:00 AM EST capsule 1 TAKE 1 CAPSULE BY MOUTH ONCE MONTHLY TAKE 1 CAPSULE BY MOUTH ONCE MONTHLY SOLD: 08/21/2020 [facility] 240 mg 07/15/2020 12:00:00 AM EDT tablet extended release 30 TAKE ONE TABLET BY MOUTH EVERY DAY TAKE ONE TABLET BY MOUTH EVERY DAY SOLD: 12/14/2020 [facility] 240 mg 07/15/2020 12:00:00 AM EDT tablet extended release 30 TAKE ONE TABLET BY MOUTH EVERY DAY TAKE ONE TABLET BY MOUTH EVERY DAY SOLD: 09/17/2020 [facility] 240 mg 07/15/2020 12:00:00 AM EDT tablet extended release 30 TAKE ONE TABLET BY MOUTH EVERY DAY TAKE ONE TABLET BY MOUTH EVERY DAY SOLD: 11/17/2020 [facility] 240 mg 07/15/2020 12:00:00 AM EDT tablet extended release 30 TAKE ONE TABLET BY MOUTH EVERY DAY TAKE ONE TABLET BY MOUTH EVERY DAY SOLD: 08/21/2020 [facility] 240 mg 07/15/2020 12:00:00 AM EDT tablet extended release 30 TAKE ONE TABLET BY MOUTH EVERY DAY TAKE ONE TABLET BY MOUTH EVERY DAY SOLD: 10/19/2020 [facility] 240 mg 07/15/2020 12:00:00 AM EDT tablet extended release 30 TAKE ONE TABLET BY MOUTH EVERY DAY TAKE ONE TABLET BY MOUTH EVERY DAY SOLD: 07/22/2020 [facility] 40 mg 06/14/2020 12:00:00 AM EDT tablet 30 TAKE ONE TABLET BY MOUTH EVERY DAY TAKE ONE TABLET BY MOUTH EVERY DAY SOLD: 07/22/2020 [facility] 40 mg 06/14/2020 12:00:00 AM EDT tablet 60 TAKE ONE TABLET BY MOUTH TWICE A DAY TAKE ONE TABLET BY MOUTH TWICE A DAY SOLD: 07/22/2020 [facility] 5 mg 04/01/2020 12:00:00 AM EDT tablet 60 TAKE ONE TABLET BY MOUTH TWICE A DAY TAKE ONE TABLET BY MOUTH TWICE A DAY SOLD: 07/22/2020 [facility] 5 mg 04/01/2020 12:00:00 AM EDT tablet 60 TAKE ONE TABLET BY MOUTH TWICE A DAY TAKE ONE TABLET BY MOUTH TWICE A DAY SOLD: 08/21/2020 [facility] 1,250 mcg (50,000 unit) 02/10/2020 12:00:00 AM EDT capsule 1 TAKE 1 CAPSULE BY MOUTH ONCE MONTHLY TAKE 1 CAPSULE BY MOUTH ONCE MONTHLY SOLD: 07/22/2020 [facility] Insurance Providers Payer name Policy type / Coverage type Policy ID Covered constitution party ID Covered constitution party's relationship to agosto Policy [place] Plan Information [place] 305/[id number] [place]805 [id number] [place] 305/805 [id number] BC BS [place] [id number] BS [place] Medig[place] Part B [id number] Self BS [place] Medigap Part B [id number] Family Dependent EXCELLUS BCBS [id number] [place] [id number] EXCELLUS H [id number] Self [id number] MEDICARE A [id number] Self [id number] BS [place] Commercial [id number] Self BS Fed Plan Medigap Part B [id number] Family Dependent Blue Federal Employee Program J [id number] SPOUSE [id number] Blue Cross Blue Shield P [id number] SELF [id number] Blue Cross Blue Shield P [id number] SELF [id number] EXCELLUS C [id number] Spouse [id number] EXCELLUS BCBS [id number] Spo [id number] [employer] SECONDARY [id number] 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 [id number] EXCELLUS BC-BS PPO [id number] SP [id number] Blue Cross Blue Shield P [id number] SELF [id number] [employer] OUT OF STATE ALL [id number] EXCELLUS BCBS [id number] Mona [id number] ANSI-Commercial [id number] ANSI-Medicare Part B [id number] ANSI-Commercial [id number] ANSI-Commercial [id number] ANSI-Medicare Part B [id number] ANSI-Commercial [id number] ANSI-Commercial [id number] ANSI-Commercial [id number] ANSI-Medicare Part B [id number] ANSI-Commercial [id number] ANSI-Commercial [id number] ANSI-Medicare Part B [id number] ANSI-Commercial [id number] ANSI-Commercial [id number] ANSI-Medicare Part B [id number]-x0lr-88nza0o234m3 19r20051-2j25-72b6-t0li-90bqo7g933i6 ANSI-Commercial 377x9ql4-2389-3937-9209-x1t6ii74781g 878q4dc1-8046-3795-6504-t4v6lu93757i ANSI-Commercial 01v0u0q6-kgu6-27f4-833a-1v453mb06vx3 68m3e9f9-ded9-42n4-408t-1p280ef70iq0 ANSI-Medicare Part B 44ve65c5-44q5-384h-m9eq-013904764r7e 59iu38k9-14s8-774n-i3km-382600233m6e ANSI-Commercial 780f9k4l-929s-7x99-197c-8626lw18t2hr 832z7g1f-505b-6p96-554y-8158gq21r9oc ANSI-Commercial 1yf9572u-hh29-6749-wd64-1b88d768i63r 0ra5403w-it12-9940-lg85-0l45y177x74q ANSI-Medicare Part B i3777v30-994h-3c6z-mfb2-3hq3y919lvz5 s9072q72-255k-1z1h-fkh8-3ob3f099wxe4 ANSI-Commercial q69k7s49-e136-36ml-q5op-ohwmaea87x05 b72m0n35-h413-95ki-w3fy-liaebiz62j88 ANSI-Medicare Part B v4a2urv0-1676-1p4j-e1o5-w038848w4278 u4p8lve0-5592-2o1s-g2q5-k072343j7866 ANSI-Commercial jfmp2ngy-9aq3-2u46-73p3-6uh2idp9246k zgqv4vhv-5qp8-7p53-66s6-0pv2wgu9004g ANSI-Commercial d67129v1-47z7-5k37-9s57-21cn97txe515 z12727v0-20z6-1n17-0j34-24vh49aik507 ANSI-Medicare Part B k1f09fu0-50o8-3415-5n24-4441m183b077 x1c09hf3-58o9-5519-6o30-7766h293m185 ANSI-Commercial m624t490-485y-6j55-p46r-2x1g3559786k i389n272-260y-9f04-w64h-0b4x3597446v ANSI-Commercial 08g96681-4f76-3782-cs84-60864244h284 89z99888-5a47-6567-hq50-60608134n070 [facility] [id number]-co5k-5mx4uk988y3d 20460933-71b8-2j7a-oi6n-9of3ur276m5z ANSI-Commercial se0w996p-62kw-27c7-a458-56s6m80w9w91 bi5g901u-41ds-18s5-y986-54q0r33f9a88 ANSI-Commercial g13232p8-u86i-50l1-sh7h-70q4y2e2640p k94232b9-t91m-10q2-nl7z-23j1e6a2693s ANSI-Commercial 64ni6067-p74f-9436-1w78-6s02r0l0t52k 11qp5984-g51d-9396-0w47-5e70s8s8x30r ANSI-Commercial sq5gj770-ubrz-7872-d157-3k50v4351c6a ud5yo347-ujww-2704-a661-3c93e6679n1c ANSI-Medicare Part B 8ndc8h76-1so7-1404-482w-294byt1il999 0wpv5s94-3jw1-0297-929h-742ags3nt410 ANSI-Commercial 05j285dw-06f0-7d70-y5j3-u02rx0tma798 65c652ws-20h5-5f70-w7r5-w96pm9xgd065 ANSI-Medicare Part B a576f419-n4fu-4sv8-xi0q-31r339ong67b l678r135-e0dk-1is4-wp5u-91k436rkc51c ANSI-Commercial 59421b40-53y9-65n0-7h05-8k75y41jt426 96876s17-45p6-11i1-4x79-7a73o25oo931 ANSI-Medicare Part B 13p3452h-215e-1m43-v5p9-0o57o62kv942 38d9324d-634l-1i43-t0i7-5i03k91sg540 ANSI-Commercial zlp54h21-8j90-35ua-4gxm-3689y13y3663 tjn86o43-8s17-00nn-0myz-6947x98p4453 ANSI-Commercial 6r034gkm-0v6j-48gs-tv59-30p804x2464n 3c454ccs-5x2j-43nm-kz83-32u708p7129v [facility]-Medicare Part B q47lz780-0420-01jq-v796-4zw7rbkod712 n13rm070-5674-62oo-n822-2jm4llngl708 ANSI-Commercial 210x5g4s-5a8a-9011-ol3c-64ifbg0j2hk4 381h9g8h-9y5p-0640-ly4u-95aexj3o9cl7 ANSI-Commercial say4jmh0-0ya8-496b-4kuc-658hl2936av0 lyh9ecv8-2bj2-374j-3xxt-627ju6717rk1 ANSI-Commercial 65c29ncz-2lfh-6a11-5tw1-25c2544h3d00 81n47njg-3rve-5h58-8xs1-12d9963y4x04 ANSI-Commercial sf7a4y44-15md-8klx-h2v8-arjfft95ty11 sm3l4f27-59df-3kls-s1p2-jvsgxf39pq07 ANSI-Medicare Part B 94c3fs4n-v57t-12ry-63u7-anxcu32e40qc 18f1uu9b-q59n-26nr-14s0-rigci73f60hk ANSI-Commercial 3h54o7h3-546w-749y-6701-45wv34vy21m7 1i08e9s2-604d-915e-6983-69eq50ko85e1 ANSI-Medicare Part B ust6786o-757p-1ky3-ujt8-il41h9iw7o03 wdd7874u-574c-2ib4-hvr7-bi90u4sd5b04 ANSI-Commercial 68uzqbpe-7989-3z8i7f0x-jm7h-t860d8091k8m 68ypiixw-7677-2g1p9y5s-xz2g-k158u8771y7z ANSI-Commercial w95v2e5f-0642-0522-z056-e3a976452857 n75u0z7q-6935-7987-d892-o4a708451028 ANSI-Commercial 77180m7r-7927-2199-ez07-x7v89526te38 21798t8o-0464-1009-rg21-t6n01160pr86 ANSI-Medicare Part B 0751965i-522l-20d5-09l1-57dn13j35046 5766370b-170j-95t6-73a7-26pt28z88783 ANSI-Commercial 44v0r444-0075-3m24-uv5u-8or0906l274a 11m0b087-5179-2b64-hg3d-4qf7979f974v ANSI-Medicare Part B 3fj54l05-tt00-3pjk-55np-z7a489x478up 2me83n74-kr01-0ezq-68td-v8q075e103tz ANSI-Commercial 673b2400-se1l-976w-s211-495w24002i81 597i1324-un2f-227l-t855-225t32895c61 ANSI-Commercial 9j293467-q472-6k15-934x-bp3yp215ang2 0l767817-v139-5r68-466r-dh4mh373vph7 ANSI-Commercial 6dx60487-4860-5091-528n-80579wo94ms8 2bp86899-0647-2522-756t-26666ye52iz4 ANSI-Medicare Part B ug0032v2-17q2-36v0-4n3f-86c82042976n go6553f7-67e4-18h0-3r7j-86u56839192j ANSI-Commercial 30qlt059-8k54-5943-gc17-got7ls181cxm 82qph030-7l90-6379-ba01-tpj1mh142vdq ANSI-Commercial y427884f-22k9-03u2-tx69-l0293k60m084 j288807y-70f5-35e8-ne03-l5928g43r676 ANSI-Medicare Part B 4931a852-n7l7-89ge-cexf-048e6dq65638 4582w958-f0s0-55aj-zice-593m0qp22640 ANSI-Medicare Part B 91qd9075-1v43-316x-3962-f93hzn2x3782 67fb2567-0b47-899e-4928-a60abf5v5382 ANSI-Commercial 83625336-70ux-048b-k44k-d23n97yav61m 76529084-18ne-992c-b70s-d73a88wuc51a ANSI-Commercial y9z9qy5w-0021-1m87-9677-581000hd6641 t0a8wg3c-3527-5v51-2595-774958fy7096 ANSI-Commercial e514job3-s36s-7g7f-5xyy-211r48525y6h l678nxf4-g73b-1q4q-1ioa-877t94513u4o ANSI-Medicare Part B 2z4sd1ja-61nk-3102-685t-6418m6z34999 6c4mj5je-16co-0141-687a-1613c8o94056 ANSI-Commercial x258351f-450h-4uz1-w66z-132c7k6057u3 a336299n-425n-2fe2-z78e-879a9a4884r5 ANSI-Commercial 2bbaq1on-5409-5028-4401-t9p094m3ml69 4tbvn1af-6391-5946-8953-m9h938x7iz47 ANSI-Commercial 25652809-9134-47kk-487b-uf2138m068g0 64126255-9527-43qa-369o-fx5862m691i0 ANSI-Medicare Part B l7r42ad4-832c-167h-xa2d-23792238j42h b8u46ha0-206o-725r-mr0i-36618510j28u ANSI-Commercial 8id9cz21-g26l-88ji-v297-08s3d6z2i68j 8fy3jb48-o21u-24oj-h963-84h4x2a9b23u ANSI-Medicare Part B ky739yu3-1n96-2z4n-rd18-1b8e4073u5db od928gu3-5r97-4x6i-yt65-0o6y1105g4az ANSI-Commercial 7iwu61v7-329o-3872-3syj-ga5586fk3p24 3uva56b4-680a-3671-3rdb-mi5800sl5f23 ANSI-Medicare Part B 0537exdb-11v5-144221f1-1285-t3b7-l036n115303t 4411fggv-76f5-331169t5-6722-h8y5-n438j143697n ANSI-Commercial h9x35079-9072-04m9-339i-583093mh664x t3p39026-4222-66e1-962k-975189zf202a ANSI-Commercial l10a8322-q3x8-7y3d-8067-a73w93kax9k5 y89u2687-v0q4-8t7z-5335-o64j27wtj9f9 ANSI-Medicare Part B 054l7t14-p86w-569r-41u4-8n84jchfg55t 661a8g46-r19f-632u-60y1-5y85cxdrf48m ANSI-Commercial hw8x3763-68pf-2227-nf38-xr74s908e10j zk1m2724-58ok-1206-bd72-se40b655y86t ANSI-Commercial 6a2959fr-5qtv-7fth-z040-4p9e69wq848s 4e1497ms-5rfc-3tlh-a590-0x7s56zf193m ANSI-Medicare Part B 6e241uy8-85po-99b8-pb6t-98g5l4e60914 2f942us4-15tb-17p4-cl0w-96d1w7p28899 ANSI-Commercial q1481403-as96-6b40-e65y-999j04558153 h3247894-ii05-9n95-t24h-648n19954578 ANSI-Commercial gy3t1ab4-f3mu-4359-1523-pr87354z0972 va1k0ah7-p5ak-8302-4138-wz19617s8566 ANSI-Commercial egvp99an-xx0j-7058-in06-b3l349p4862b tzrj84vx-mp5l-9773-na76-s3s958b6380h ANSI-Medicare Part B 4731d51i-ly11-6578-7g25-x6794211983b 6085k86j-li89-8624-3y80-i2103248365d ANSI-Commercial 92c67n52-9zf9-0105-a285-y1qz3813i30x 44l66x70-3tw6-7269-p347-r6vr7870r86s ANSI-Medicare Part B b98u07ox-09lw-45f8-9igb-j54v17yr3z04 b54o48rx-67nu-39z7-8wyh-q62n99ki8z24 ANSI-Commercial f9886e18-6hcr-305d-b646-5958lbyv4u08 t4757e45-7htb-816n-t505-9453uihn7v76 ANSI-Commercial m6723p20-kg99-6n05-5z72-r766d165j7n1 v3575w42-ss32-2c43-4n33-u352e646t8j0 ANSI-Medicare Part B 814s29l9-3q46-8192-j981-07369h616y00 032f83g4-9u57-6217-i249-08326b204h48 ANSI-Commercial 3o473fs0-7843-8138-97a1-683e75218947 5u594lf6-0192-6271-72p7-868j30878084 ANSI-Commercial r04h8j2z-ab87-60o8-o414-ts16296h1232 m45n6u6p-lt27-79o8-g188-ug41368f9789 ANSI-Medicare Part B w1yn34y3-36h0-4k89-u3s1-6b89adljl9g3 q3hc02y0-67g2-0k56-o2s1-6w57ffpym1i4 ANSI-Commercial n26pj165-92f8-9kjf-3qy0-365657061077 s61xq809-04m7-0rkf-3ch3-032208428061 ANSI-Commercial ix0tb48e-6v42-6x4h-6206-9199b548653t td5cn59j-1r86-2d3w-8152-3283g430605m ANSI-Medicare Part B yq1mm893-gyqy-79f4-l299-10z3r4819z79 gg4wz316-gyju-59e1-x102-74n0a0854l77 ANSI-Commercial e261p19j-8s23-937x-g17s-nzwt762l3340 p076c05b-8s47-190t-k85i-tbws535e2274 ANSI-Commercial czuh1518-k03l-2ggy-169c-i3642t51q0lk rzwp1285-u40i-5xue-661i-n5091x29q1qm ANSI-Medicare Part B 7hi58w13-4db2-21h8-c252-711jy02k6629 2ls51y75-8sx0-90y3-i823-466mm30s7404 ANSI-Commercial 8vc8i1s4-a883-4594-7382-69wvea222y15 9aw1c4j7-y943-9396-8260-99acdh830x73 ANSI-Commercial 7163sm68-z741-87lm-r75v-b8vc5ussu13p 4290fh27-x107-52pj-q51x-o3np7mnar94m ANSI-Medicare Part B o3nk5806-7ge0-13uv-nm0d-405epfv8he70 e1wn2570-1iq3-33sa-gt5n-193mhbg7tw22 ANSI-Commercial 214343a8-ce80-1174-eb57-5n0021oj40i0 366000o3-ho88-0522-kw76-7r3398ym82k7 ANSI-Commercial 5287km4g-39pe-9w66-x298-1el49y68r3s2 9454wf0a-08vx-4z83-x346-4za73w21b5b3 ANSI-Medicare Part B z24ti0p0-917q-7aa1-e94y-13ls93346g1r o21py1u9-545a-4wd5-w72r-53rq00999q2x ANSI-Commercial 021zsrbn-6127-484u-bfa1-1c6270038595 296qedkt-0051-688r-bfa1-0h3520834871 ANSI-Commercial b5g22d24-jlgq-80r6-1d3f-2u8499610h60 b0l54m37-lnfz-96j9-8y1u-3n4633284g77 ANSI-Medicare Part B 124114ex-h834-138o-q0cb-06rn994td5qh 887012tc-c787-107d-o1vh-95vt394qs1xy ANSI-Commercial 3708y53u-7d1s-961w-2rh2-4ju869w457c0 2745c70d-3c6j-625a-4ac4-2os844u665d7 ANSI-Commercial 8yn61cmi-5z9w-185r-q20b-0wrr93763s86 0vt10oqi-3t0l-244o-y65v-4dzb60891u16 ANSI-Commercial w44d0539-86f5-3e6s-ea91-591w4dv9y0u7 k14y3303-16n8-8p2k-nf64-665f7bx5d1b6 ANSI-Commercial 6b48w2au-eaj0-6267-f772-prf1s94144k9 7f84h5lw-bpz1-5012-u994-drb9o04443h3 ANSI-Medicare Part B 1390v5g2-1p08-3pq9-j0n1-0d57rs2r99u7 2343q8i3-9f76-4jh2-x7u5-7u29cq2u98g1 ANSI-Medicare Part B d55y23p1-qas0-20ea-971d-ta06dz7o292w v13e91y6-ufv0-70pz-512c-wy63ks7s145z ANSI-Commercial 026643p5-045r-0022-i973-6r1hp8377es2 487359c3-792v-8210-x655-7s7ks9220fh3 ANSI-Commercial 5708a0k0-99h8-4827-51la-65x0f0t5kq8g 6975b6l5-70q0-4081-58gf-43o5z8p0xj9p [facility] Part B [id number] [id number] Family Dependent [id number] [employer] [id number] .16.840.1.556711.3.227.99. 1767.00037.0 [facility] [id number] ANSI-Medicare Part B 567c0k5d-2skx-34i1-ny1j-a02gjx9u49y2 119t7r3k-7kqf-62h5-tq6k-g48txn5w37h4 ANSI-Commercial 20if0488-m196-4hr6-jr38-n1574unaa670 80il6252-h018-6qk9-pb80-o6262khbz918 ANSI-Commercial 639gc801-7605-083x-1ha2-0gu815723769 572vz754-4221-136l-3qu4-0is927304669 ANSI-Medicare Part B 5j3uyw4z-z1l3-55yk-i3a3-77i85gmr9631 7h2wns0g-e6k3-43ye-c8q2-81d97jid2483 ANSI-Commercial xm4n1gyl-5s21-6388-1a0w-hpvc523a5j2x xy8v6rvq-7w19-0891-6s8g-rval383q9a2g ANSI-Commercial w3q7f199-598h-7za7-h24v-3x6660b7w4ty f6p7o364-021d-6hw3-f62l-4q7872t6s0io ANSI-Commercial -1st5-2qyq-0ik7-697e3gt91cuz usluu197-3au8-7dlk-6zg2-614a3in34xle ANSI-Commercial bx4i650m-615k-2792-qf8s-798xi44992n0 yu5t435b-681q-7079-ml7a-415pu08223g9 ANSI-Medicare Part B 2p52718v-f10q-582o-31q7-70700377c400 9f75075p-i48c-920l-23k3-78736273p026 ANSI-Commercial 0y6l7750-9p6m-3763-1285-6p7l8n0234q0 3h4i3587-8k8n-3568-7044-9h8x3s5864q4 ANSI-Commercial z60mbcr4-w2a9-3p54-xk1b-0e1n83p44vk6 a56ptpu2-n1m5-8m44-hz7k-8k9f66i05il2 ANSI-Medicare Part B w0z9jq49-k63v-1846-b68z-t25o0dana26e w8b0ep66-u55h-3470-g26c-o85s6sihl08z ANSI-Commercial 706m959c-6496-8jb0-48t5-488z27ui4122 022v776f-9215-5le3-47c9-181t39um4011 ANSI-Medicare Part B 16j07x59-98j4-8imv-f251-jby61484es5a 34c93h95-71i1-2div-f771-dkc92584oj5b ANSI-Commercial 23q63253-4kf2-4d49-q244-44lkgpk740lu 78i69158-3ls6-9y05-q600-28yqxre207cn ANSI-Commercial 1g829ame-43bv-8680-280e-r494s86766s5 5t512mqg-52lm-9649-201m-j500m14100g8 ANSI-Medicare Part B 4j824t19-07lf-06q2-k125-8e26tyndah09 0s323p84-67ri-54c0-z989-5m69cljclk03 ANSI-Commercial 0g643854-j093-213d-8954-b7020y3f13q5 0q027542-l211-808d-7812-e4867d3j82r6 ANSI-Medicare Part B 55x331lb-0406-8905-u715-k2ab3n0x9578 72y741oh-5413-9859-x558-j6kg3a1d5765 ANSI-Commercial 5u1033a1-93x0-80zv-57h2-b53jjs465781 8x3734t6-25s6-42xq-31f8-b07eba814791 ANSI-Commercial 7nnb4945-ek0p-7960-bn4u-ak951og2r628 4ise4690-rv9e-0591-na2q-za725dj2p290 ANSI-Medicare Part B s3puf62j-992e-9snd-d293-0a57r54oa55y w1pjl49c-378t-7rcc-s763-5l12r10pn27m ANSI-Commercial ddl6xmzc-8d7f-4m1l-h8ue-61ma1s3iq6gm ysu6huwu-7z5b-8n1n-q3dc-29wq1d6jp0qe ANSI-Commercial 9hxk291h-32r5-4w1s-s108-h339223oy5e0 5gwl854s-87b3-4s0k-m138-u926121zf1u2 ANSI-Commercial 6m0bym07-21hg-3272-ab3q-564jdda222nj 2w3pwo91-99lz-0067-ja3n-319htfh752ek ANSI-Medicare Part B ims7d255-3r35-0y04-k4t0-t97w1492e40f els7n706-6n09-1s83-j6k5-k26n0032h80z ANSI-Commercial 13067286-1500-97s4-4322-s5igt7898u8h 40018557-5643-59d9-1200-q7xvq9395y9d MEDICARE C 644342207W 265984884 S [id number] B ANSI-Commercial 3v914922-36b2-284g-s8t2-93moguvs7x35 6q196670-59m8-410k-x2p6-74gyfwap0y43 ANSI-Commercial 50224243-s1e4-3r78-i9s3-i56c4wye1m7a 48743418-w7i9-8z98-r1z4-y98p1xfe8f0r ANSI-Medicare Part B 525r9rf1-pl1v-734o-w7rf-7u0w334k5200 124k6ix4-ur6l-696o-j6ll-2z0e689z5209 [employer] [facility] Part B [id number] .1.847775.3.227.99.1767.66622.0 Family Dependent [id number] [employer] [id number] 2..840.1.565762.3.227.99. 1767.76952.0 Self [id number] ANSI-Commercial 077by4lx-72x2-6x77-493d-f0k1c92292x9 728pz9du-53o0-3w86-003z-n3f0t77841j9 ANSI-Commercial x92n36j1-7l01-9ko8-z881-1715344wfi26 l98u30w3-8u54-7oh2-y845-8279413iwi10 ANSI-Medicare Part B oe8c92bl-40o9-14j6-iof7-7846g58tx72b lf8m05lm-01z9-10f5-xig4-4290u61yd62i ANSI-Commercial 3843xl51-283x-9734-v541-56f560336k05 3512jz00-028o-6150-u742-84x122031x93 ANSI-Medicare Part B 43q7e16s-2ei8-4907-9764-3p9nr618evpb 94s9b53a-9np7-7718-1479-5o8ls678zktv ANSI-Commercial 42i7k2y1-00p7-168j-6rw1-n87868615c0o 79t6s9m8-20l2-537w-4bh2-b30184980u7l ANSI-Medicare Part B c2d20n3j-jsbi-8z43-zz7h-ok99r353p1p3 s1g19v8o-cfsy-7p43-zc0x-wz06k389w8f2 ANSI-Commercial s3951p31-2535-36j0-p652-uqya8f5j03v5 u2849l43-1278-36d6-l411-grjp0v0o77k5 ANSI-Commercial f0x03e8t-6wt8-591r-6r28-1108a406kb72 m3o57x9p-6nt8-019x-0h11-8572i525in95 ANSI-Commercial 5341477s-2odb-92t0-e7bi-x289h24022o6 4332768z-7ggm-20i6-j1er-p410g72413g3 ANSI-Commercial 496389kg-0109-10l3-qo21-jq3e7fnk0zw8 913440iq-1180-20i5-yi77-lp0a4mnl0ft8 ANSI-Medicare Part B fzg69rv0-q00j-874o-29z7-2lf0al3vgu2n chp56la0-h63u-241p-81v9-1gs3wx2aoy5r ANSI-Commercial wiyt9l93-8a0j-5391-613q-44zp9wp4i469 nqfe2r58-4n7v-4063-033c-59ds8op1p793 ANSI-Commercial mt54v733-5a01-3bm5-3y99-2s86kmi882v5 nw82d508-7j92-8gs7-5r55-9b35fpw054i5 ANSI-Medicare Part B j744790o-oezu-9fp9-7ks7-481u4h834e25 x984408g-qefm-9ni4-5fd7-454a5h060a79 ANSI-Commercial 3h7uu209-x809-2328-h288-v3ziz1977702 7v8uo078-k129-8370-l215-r7ibt8566960 ANSI-Medicare Part B n5i75116-9526-1501-1919-m77o1w89nv2i u3f06838-2618-5678-3246-x46u0b29oj8a ANSI-Commercial w6d881s6-m288-6l37-291n-087ax946r0v1 x7t573m9-n461-9w70-460l-615ae670q7i3 ANSI-Medicare Part B 37rmp3zn-0s40-6hr0-55l4-h048b0f1193o 75rca1gm-3c35-3hh8-38a3-y899g4u2925v ANSI-Commercial 43aaq4m7-28f9-9982-k6j9-42229204x09p 05wzw8y7-97u3-5703-u0e5-22281506b81i ANSI-Commercial f68539d3-8092-96p7-v2bu-027v77i36zeh p46741x6-0546-77d8-g7bk-776v01l57img ANSI-Medicare Part B 79rqxwv8-tr36-074c-4i9x-3e3z0n7y89o0 61yxwho9-ds68-612b-2y1c-6j2s4u2x06e3 ANSI-Commercial go84go6a-0281-67i1-sz2c-628u034900iq gg33lk1r-8674-14s7-ou0g-670g045336ae ANSI-Commercial 2o7v7r07-15l2-7k20-c46a-0c2w4aolhixm 5e1q6o35-51m6-5u58-r69i-6l7v5hawbymf ANSI-Commercial 10497114-e6e4-0toq-3026-039sfz528315 77696435-a2y1-8ebx-4460-522hqy900219 [facility] p169b906-b5x2-6lo0-scj2-i2b44v349py7 j811p452-j9m1-2fq6-twj0-g7e24o131lq2 ANSI-Commercial 6ath95wj-wch5-4jr5-417a-7314zh923gqh 7axu20kh-tlz3-2ea0-887q-4380jd049jpu ANSI-Commercial 04m30368-lmp8-266t-6h36-90w0j11y4950 70v01242-nrc3-055h-3c79-76n6j75r5404 ANSI-Medicare Part B 3o6z87sz-252o-7p6l-n0t1-u92v2r289445 3k1m06va-669m-9t4f-q2n2-l99a9n077128 ANSI-Commercial twwl65pf-yo17-9i7h-do8h-963ju628v9j5 xlcn51ea-ri11-8d8e-lz4d-265da061g8e2 ANSI-Commercial okr13t65-3s50-0522-t22v-x6tgmr5x9382 rah02g54-1r57-9641-s88w-m5egkn4q7985 ANSI-Commercial 7ze85452-pe5l-6791-8400-763h3x47uf62 0pa18083-wi9x-8132-7837-509i6h23tl81 ANSI-Medicare Part B gv248689-au0w-7719-w153-q582w572b7i1 bp150827-mf3t-8573-w108-u978i305u9v6 ANSI-Commercial b17ri317-4fn6-9c51-n30h-30b438r9v8l3 p62nt652-9rd1-6n01-g01g-94h319c3t5w6 ANSI-Commercial n852c184-s0r8-9w06-sg64-282k66i08980 y325b567-g3k1-7l69-qs23-967h59f88656 ANSI-Medicare Part B f839a93s-91v0-05b6-0606-x6k1eftoh393 v751e23a-81y2-97b0-0770-q8m6vtgtq182 ANSI-Commercial e0306go8-914z-5gz6-41h1-owssikyxl7k1 p8197jy9-104y-4of8-64q6-vqmyakspk0f3 ANSI-Commercial u15g6z27-846n-6bvz-2f6t-43h4f6353305 f23f6i93-094r-6gio-0f7t-16u5r2364748 ANSI-Medicare Part B 88qmg78w-a1z9-7243-91v0-r891345hv3tc 32xnc80s-k4p2-3054-68v7-n063315vn7wu ANSI-Commercial 35f898rr-7w03-3bz7-947q-4pd538bmti73 82d592kk-2g21-8pf9-067j-9um852fgss21 ANSI-Medicare Part B l5562285-3a4q-7135-7040-spmi4w03m0j5 q9100789-8w8r-0011-0614-rlqv3o04a3f8 ANSI-Commercial ye534pg0-33p0-07d8-bh1s-2963f35y0048 xi463la6-64z0-98p6-hu4g-5261n35j0029 ANSI-Commercial 354g3512-p989-2w36-r46d-fz240vf3o0bh 336e2682-p791-1v47-h17x-cu442je6j4dz ANSI-Medicare Part B 4x873447-4662-7724-05o4-m8uj5bj5s586 0e549106-5757-6815-60q3-d5uu0fg9m701 ANSI-Commercial 57mkm065-0m8a-88tg-8035-3899i4775w1q 56xgi344-1t1r-04oy-1829-7820p2038k8e ANSI-Commercial 3zp16j5p-2ai1-1z98-oau9-0wh0dk415fu0 3wt93b9u-7od0-3c47-nmx2-6af9cr310dm1 ANSI-Medicare Part B 70rm31m2-6iu4-09hr-f91v-s3f36y854f36 71ap48u1-0ee2-22sc-e13n-y8p33p828g20 ANSI-Commercial 806538e3-8541-83i4-f23x-63782m3466y8 880331c7-9710-64i0-h37h-18904g2131c7 ANSI-Medicare Part B 3805f8x3-6008-2vz9-9eq7-88svn9m6401r 8963e6s4-6209-8nz4-4pv6-44nvo9c7115s ANSI-Commercial 7jvv9u4p-lsl2-1461-8i6w-x4g698b63h57 0lcb8y1v-jsq4-6250-9t1f-f8w797b20q09 ANSI-Commercial 901wl9vt-959x-94dt-43td-9586213knj54 668cv0lm-913g-40ia-75uk-0439269rwt04 ANSI-Commercial 898z3a61-3fpy-2680-9q2y-65479368h98j 134g3n77-3ybr-2366-7t7l-02647723j99i ANSI-Commercial nddb6436-1id9-1o81-72x8-yc4wd7lfv17s mehe8422-3bq8-2g69-31u0-wm4bp6lcf66z ANSI-Medicare Part B jj73hk22-1j60-3yw8-5e4x-5x76p481mw09 mb00ai21-2r10-5ky3-1c9z-9m21h234zq14 ANSI-Commercial 84543p55-681u-2z89-381o-74s4b0dk01dn 74150c24-324n-8w45-191p-02t3f2bc18cs ANSI-Commercial xvrb2ex6-1498-0wy0-axx6-ya0fv89u8m3d cvqe6qe8-6281-8rw8-tem3-cr6yj73e0m8j ANSI-Medicare Part B 9579o6sg-3564-4215-l6ex-41ipi8sv54t2 0025n9pw-7185-1407-w5bm-85zbj0qa87o7 ANSI-Commercial fxs912ey-x6zt-4rld-h210-9142aurb664d syz349nn-j2lo-6yuj-e211-3139krkg842q ANSI-Medicare Part B 83p90y96-7oh0-4x77-d37s-xg4p9165t67n 22m31d12-6lt7-5e01-m41n-oe2p8922x16y ANSI-Commercial 04df00ul-qv58-5h0f-by32-j7s3uh2y758p 99ra58ej-qd04-3n0f-fl79-f9h5ih9e438j ANSI-Commercial sb1t70fw-080f-7b56-h744-ol13m7o352s9 dy4b34uc-501s-2z13-u794-tb94d3r051y1 ANSI-Medicare Part B 356uibd0-a192-92c2-qf35-3xq9r22425ce 156dxsa6-c643-70z2-zz81-4er3h74322ra ANSI-Commercial c58zf3c7-r728-0764-rcjo-011v6g47j7y1 p82ls2w8-g442-0084-wxjr-209y2h12d7r1 ANSI-Commercial b9149d79-3l41-0d62-x5v9-0733j82z1642 q2302c34-9d65-3e24-q3y7-7436c52c4604 ANSI-Medicare Part B 53j2p373-4yfa-63ma-r1gt-w6290g517o6d 16i2u106-9euc-75kt-p8em-h3908z168j7j ANSI-Commercial nu540e70-i12g-3x25-rt64-kk9zp23hc3sf np374z96-h92l-9t44-eu31-ji2nt30hy3rc ANSI-Medicare Part B bq05p550-1300-3186-6o61-g061695y7510 ww93x313-1579-3731-9u91-h442276k6245 ANSI-Commercial 3we93m0f-q5au-0q86-i91a-r235y1002z80 7hr50g5p-m9mu-2l35-h67q-q510l8074m29 ANSI-Commercial 167892c8-tz33-7ir2-2q1f-b332fsiv6dd9 674283i9-kk05-8ds4-4l1q-u630cnxu0qw4 ANSI-Commercial 40hhm3q9-g865-23j6-8cwf-7t45rz8887c5 13rlu5z1-a814-84a4-5yhl-4w21da7833x6 ANSI-Medicare Part B 24f5wp85-3x19-6e1a-0814-6542i0y82352 44c4jo08-0e60-8t9p-8813-3997b0a15959 ANSI-Commercial gi4pq83b-8gj2-7p3k-nvk9-9niuh90s6f4v pj6yg77z-0sk1-5c5l-pmr8-1oddi65e9g7s [facility] [id number] WI2 [id number] MEDICARE [id number] B BCBS [facility] Part B [id number] Family Dependent [id number] BCBS/[employer] Commercial [id number] Self [id number] BCBS [facility] Part B [id number] Family Dependent [id number] BCBS/[employer] Commercial [id number] Self [id number] BCBS [facility] Part B [id number] Family Dependent [id number] BCBS/[employer] Commercial [id number] Self [id number] BC BS [place] [facility] B [id number] O [id number] BCBS/[employer] Commercial [id number] Self BCBS [facility] Part B [id number] Family Dependent [employer] BCBS FEDERAL [id number] HU2 [id number] [employer] BCBS FEDERAL [id number] HU2 [id number] BCBS [place] PPO 302/307 [id number] SP [id number] MEDICARE [id number] SP [id number] T BS/W/Id#Prefix/W ALL #'S Commercial [id number] Self BC/BS ([facility]) [facility] Part B [id number] Family Dependent BS Of [place] Commercial [id number] Self BC BS [place] FEDERAL [id number] WI2 [id number] BC BS [place] FED[place] [id number] HU2 [id number] BC BS [place] [id number] HU2 [id number] 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 [id number] [id number] MEDICARE PART A -O/P [id number] 18 [id number] BS [place] FEDERAL B [id number] S [id number] MEDICARE [id number] SP [id number] MEDICARE [id number] SP [id number] [employer] BC-BS PPO 306 [id number] SP [id number] MEDICARE C [id number] S [id number] [place]US BC-BS PPO 306 [id number] SP [id number] [employer]CELLUS BCBS B [id number] S [id number] BCBS [place] PPO 302/307 [id number] SP [id number] [facility] FEDERAL EMPLOYEE PROGRAM [id number] 2 [id number] BS [place] FEDERAL B [id number] S [id number] BCBS [place] PPO 302/307 [id number] SP [id number] MEDICARE [id number] SP [id number] B ANSI-Commercial [id number]-[id number] [id number]-98wq-q5d5-xuh78c7ygj7h ANSI-Commercial k4zqcv34-pzcl-9bs7-7n59-b35u4583a872 h6zbvv89-epbl-3ri7-2j21-r95z7240u688 ANSI-Medicare Part B [id number]-6ksk-1p83-6ed0-32w267w726b4 yw6559ks-6umn-7r54-0to8-60q243s613a5 ANSI-Commercial p66uo307-w8pm-022m-l16j-y52s27x05m2f j31uf928-a5xi-871y-u62a-m56i58o52e0z ANSI-Medicare Part B [id number]-9x83-wp67ed9v1a38 919904d2-7891-8k8h-9i51-kg50cc0m1b04 ANSI-Commercial 14ivtm60-j1fg-6w85-0g1q-28v4l8b79o68 38bcqh45-h4at-1q04-4y4w-09l8s0z70y04 ANSI-Commercial k6z53455-b8e1-0p5w-cq2b-374ss91c3a8v o2c63591-z4w0-3x4n-nj6a-822lw99l0i1y ANSI-Medicare Part B [id number]-1d2q-237k-1u16-644h7w17uj74 z48p16qx-8q4y-423t-1r12-935x2r86ue66 Problems, Conditions, and Diagnoses Code Display Name Description Problem Type Effective Dates Data Source(s) Z68.41 Body mass index (BMI) 40.0-44.9, adult B junaid mass index (BMI)40.0-44.9, adult Diagnosis 04/20/2021 01:09:03 PM EDT [facility] E66.01 Morbid (severe) obesity due to excess ca lories Morbid (severe) obesity due to excess ca Diagnosis 04/20/2021 01:09:03 PM EDT [facility] Z79.01 FCI (current) use of anticoagulant s FCI (current) use of anticoagulant Diagnosis 04/20/2021 01:09:03 PM EDT [facility] I10 Essential (primary) hypertension Essential (primary) h ypertension Diagnosis 04/20/2021 01:09:03 PM EDT [facility] I48.92 Unspecified atrial flutter Unspecified atrial flutter Diagnosis 04/20/2021 01:09:03 PM EDT [facility] [id number] Dry eye syndrome of bilateral lacrimal g lands Dry eye syndrome of bilateral lacrimal glands Diagnosis 12/07/2020 09:30:00 AM EST [facility] [id number] Unspecified ptosis of bilateral eyelids Unspecified ptosis of bilateral eyelids Diagnosis 12/07/2020 09:30:00 AM [facility] R97055 Keratoconjunctivitis sicca, not specifie d as Sjogren's, bilateral Keratoconjunctivitis sicca, not specified as Sjogren's, bilateral Diagnosis 12/07/2020 09:30:00 AM [facility] H2511 Age-related nuclear cataract, right eye Age-related nuclear cataract, right eye Diagnosis 12/07/2020 09:30:00 AM [facility] H2512 Age-related nuclear cataract, left eye A ge-related nuclear cataract, left eye Diagnosis 11/16/2020 07:30:00 AM [facility] S88271 Encounter for other preprocedural examin ation Encounter for other preprocedural examination Diagnosis 11/14/2020 12:00:00 PM [facility] R06.83 Snoring Snoring Diagnosis 10/27/2020 01:31:06 PM [facility] R53.83 Other fatigue Other fatigue Diagnosis 10/27/2020 01:30:33 PM [facility] G89.29 Chronic pain Other chronic pain Problem 09/19/2020 12:0 0:00 AM EST eCW1 ([facility]) M47.816 [id number] Spondylosis without myelopathy or radiculopathy, lumbar region Problem 07/18/2020 12:00:00 AM EDT eCW1 ([facility]) Surgeries/Procedures Procedure Description Date Indications Data Source(s) Pain Procedure Log 02/06/2021 12:00:00 AM EDT eCW1 ([facility]) Unclassified drugs 01/23/2021 12:00:00 AM EDT eCW1 ([facility]) Completion of procedural visit when meets criteria 01/23/2021 12:00:00 AM EDT eCW1 ([facility]) Pain Procedure Log 09/19/2020 12:00:00 AM EST eCW1 ([facility]) Unclassified drugs 09/05/2020 12:00:00 AM EST eCW1 ([facility]) Results ID Date Data Source [id number] 06/08/2021 07:30:56 PM EDT [facility]Name: Oscar NguyễnDOB: 1950Provider: Dick ChampionCHASITY: 06/07/2021 Reason For VisitDacoty Nguyễn is here today for Right Knee. Oscar had her second Covid vaccine on 11/2020. Oscar Nguyễn is an established patient here for follow up. The patient was notified that the office visit was recorded to enhance documentation accuracy. Patient is retired. History of Present IllnessCHIEF COMPLAINTFollow-up of right knee.HISTORY OF PRESENT ILLNESSMs. Delma is a 71-year-old female who presents for follow-up evaluation of her right knee. She was last seen approximately 4 months ago, and she has significant degenerative disease, which we have been treating nonoperatively with the occasional injection. The patient reports continued right knee pain. She describes significant pain in the posterior aspect of her knee. The patient agrees to stiffness about her knee.The patient reports that she has cellulitis. She states that she is currently taking antibiotics. The patient reports a history of psoriasis.She states that she is retired. 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 Results/Data MRIX-rays of the right knee previously taken in 2018 were reviewed in the office today. These show end-stage medial compartment arthrosis. AssessmentASSESSMENTRight knee primary degenerative osteoarthritis. PlanPLANI reviewed with the patient the exam and x-ray findings which reveal right knee primary degenerative osteoarthritis. We discussed her diagnosis as well as treatment options, including cortisone injection, viscosupplementation injection, and surgical intervention. She still wishes to avoid surgery. If we get to the stage that replacement is required, we will have to be mindful of her vascular changes, and she would probably need to lose a few pounds. For now, she wants to proceed with a steroid injection. We will consider viscosupplementation injection if her response is insufficient. All questions were answered. The patient understands and agrees with this plan.PROCEDUREThe right knee was injected under sterile conditions with 80 mg of Depo-Medrol and 9 cc of 0.5% Marcaine. No complications were encountered. I advised the patient that steroid injections are frequently used to provide relief from musculoskeletal pain and to aid in the diagnosis of musculoskeletal problems. This injection offers a variety of benefits and various potential risks associated with the medication administered during the injection. I informed the patient that alternatives to this injection include no treatment, use of rehabilitation and exercise, use of a different medication, and surgical intervention when appropriate. I advised the patient that risks associated with this injection include an allergic reaction to the medication, pain at the injection site, possible infection of the injection site, facial flushing and skin changes, temporary increase in blood sugar, tendon/muscle/nerve injury, avascular necrosis, and that there may not be any beneficial effect realized. Having discussed benefits, alternatives, and risks to the intervention, the patient elected to proceed with the procedure and tolerated it well. Scribed by Mirian Minor on 06/08/2021 at 08:05 AM for Dick Champion Signatures Electronically signed by : Mirian Aguilera MA; Jun 08 2021 8:05AM EST (Author) Electronically signed by : Dick Champion M.D.; Jun 08 2021 7:30PM EST Name Value Range Interpretation Code Description Data Sandra rce(s) Supporting Document(s) ID Date Data Source [id number] 02/17/2021 04:20:00 PM EDT [facility] Name Value Range Interpretation Code Description Data Sandra rce(s) Supporting Document(s) SARS-CoV-2 (COVID-19) RNA [Presence] in Respiratory specimen by ARVIN with probe detection Not Detected [facility] This lab was ordered by [facility] and reported by [facility]. ID Date Data Source [id number] 02/17/2021 03:17:00 PM EDT [facility] Name Value Range Interpretation Code Description Data Sandra rce(s) Supporting Document(s) SARS COVID ANTIGEN NEGATIVE [facility] This lab was ordered by [facility] nd reported by [facility]. ID Date Data Source [id number] 02/10/2021 07:45:17 AM EDT [facility] PCName: Oscar NguyễnDOB: 1950Provider: Sultana Champion: 02/08/2021 Reason For VisitDacoty Nguyễn is here today for Right Knee. Oscar has not had the Covid vaccine. Oscar Nguyễn is an established patient here for follow up. The patient was notified that the office visit was recorded to enhance documentation accuracy. Patient is retired. History of Present IllnessCHIEF COMPLAINTFollow-up right knee.HISTORY OF PRESENT ILLNESSMs. Nguyễn is a 70-year-old female who presents for follow-up evaluation of her right knee. She was last seen approximately 4 months ago. The patient is being treated for degenerative osteoarthritis. She is not a surgical candidate at this time due to body mass index. No new films taken today. The patient denies any significant changes with regards to her knee. She relays that her skin became a little red following her last knee injection, noting that she applied antibiotic ointment and the redness resolved.The patient confirms that her health has been doing okay overall. She notes that she underwent bilateral cataract surgery approximately 2 months ago, adding that her sight is now improved. The patient confirms that the cellulitis that was present on 1 of her knees at her last visit has resolved. AssessmentASSESSMENTRight knee primary degenerative osteoarthritis, chronic.CHRISI reviewed with the patient the exam findings, which reveal chronic right knee primary degenerative osteoarthritis. She still elects nonoperative measures and has been receiving decent results from intra- articular injection. The patient would like to go forward with another right knee injection today. This was performed without difficulty. All questions were answered. She will follow up on an as-needed basis. The patient understands and agrees with this plan.PROCEDUREThe right knee was injected under sterile conditions with 80 mg of Depo-Medrol and 9 cc of 0.5% Marcaine. No complications were encountered. I advised the patient that steroid injections are frequently used to provide relief from musculoskeletal pain and to aid in the diagnosis of musculoskeletal problems. This injection offers a variety of benefits and various potential risks associated with the medication administered during the injection. I informed the patient that alternatives to this injection include no treatment, use of rehabilitation and exercise, use of a different medication, and surgical intervention when appropriate. I advised the patient that risks associated with this injection include an allergic reaction to the medication, pain at the injection site, possible infection of the injection site, facial flushing and skin changes, temporary increase in blood sugar, tendon/muscle/nerve injury, avascular necrosis, and that there may not be any beneficial effect realized. Having discussed benefits, alternatives, and risks to the intervention, the patient elected to proceed with the procedure and tolerated it well. Scribed by Ken Jurado on 02/09/2021 at 02:09 PM for Dick Champion Signatures Electronically signed by : Ken Jurado MA; Feb 09 2021 2:10PM EST (Author) Electronically signed by : Ken Jurado MA; Feb 10 2021 2:29AM EST (Author) Electronically signed by : Dick Champion M.D.; Feb 10 2021 7:45AM EST Name Value Range Interpretation Code Description Data Sandra rce(s) Supporting Document(s) ID Date Data Source [id number] 01/18/2021 10:45:00 AM EDT [facility] Name Value Range Interpretation Code Description Data Sandra rce(s) Supporting Document(s) SARS-CoV-2 (COVID-19) RNA [Presence] in Respiratory specimen by ARVIN with probe detection Not Detected [facility] This lab was ordered by [facility] and reported by [facility]. ID Date Data Source [id number] 12/14/2020 03:45:00 [place] [address] OPERATIVE SUMMARYNAME: DELMA MOORE DATE OF : 1950TTENDING PHYS: Elva Becerra MD DATE: 12/07/20 MR#: [id number] OF PROCEDURE: 12/07/20PREOPERATIVE DIAGNOSIS: Cataract, right eye.POSTOPERATIVE DIAGNOSIS: Cataract, right eyePROCEDURE: Phacoemulsification with intraocular lens implantation, AUOOTO Power 23.5.SURGEON: Elva Becerra MDASSISTANT: None.COMPLICATIONS: None.INDICATION: Decreased vision interfering with daily activities.DETAILS OF PROCEDURE:The patient was brought into the operating room and laid in the supine position. The eye wasprepped and draped in a sterile fashion for ophthalmic surgery, following which a lid speculum wasplaced. A side port incision was made and EndoCoat was injected into the anterior chamber. Aclear corneal incision was made with a 2.4 mm Keratome, followed by capsulorhexis.Hydrodissection was then done using a balanced salt solution and the nucleus rotated within thecapsular bag. Phacoemulsification was then done in a [id number] method within thecapsular bag. Excess cortical material was then aspirated using irrigation and aspiration cannula.Visco was then placed into the capsular bag and intraocular lens power 23.5, Model AUOOTO wasthen inserted into the capsular bag. Excess Viscoelastic was then aspirated, followed by hydrationof the corneal wounds. No leaks were noted. Intracameral antibiotics and subtenon steroidinjections were then given. The patient was returned to the recovery room after the lid speculumwas removed and postop instructions were given out in detail.DD: Elva Becerra MD 12/13/20 15:43DT: LEA 12/14/20 15:43DS: Elva Becerra MD 01/11/21 15:20 1 Name Value Range Interpretation Code Description Data Sandra rce(s) Supporting Document(s) ID Date Data Source [id number] 12/02/2020 01:39:00 PM EST [facility] Name Value Range Interpretation Code Description Data Sandra rce(s) Supporting Document(s) SARS-CoV-2 (COVID-19) Negative [facility] This lab was ordered by [facility] and reported by [facility]. ID Date Data Source [id number] 11/18/2020 07:08:00 [place] [address] OPERATIVE SUMMARYNAME: DELMA MOORE DATE OF : 8ATTENDING PHYS: Elva Becerra MD DATE: 11/16/20 MR#: [id number] OF PROCEDURE: 11/16/2020REOPERATIVE DIAGNOSIS: Cataract, left eye.POSTOPERATIVE DIAGNOSIS: Cataract, left eyePROCEDURE: Phacoemulsification with intraocular lens implantation, AUOOTO Power 23diopters.SURGEON: Elva Becerra MDASSISTANT: None.COMPLICATIONS: None.INDICATION: Decreased vision interfering with daily activities.DETAILS OF PROCEDURE: The patient was brought into the operating room and laid in thesupine position. The eye was prepped and draped in a sterile fashion for ophthalmic surgery,following which a lid speculum was placed. A side port incision was made and EndoCoat wasinjected into the anterior chamber. A clear corneal incision was made with a 2.4 mm Keratome,followed by capsulorhexis. Higher dissection was then done using a balanced salt solution and thenucleus rotated within the capsular bag. Phacoemulsification was then done in a jizieg-[id number]-[id number] method within the capsular bag. Excess cortical material was then aspirated usingirrigation and aspiration cannula. Visco was then placed into the capsular bag and intraocular lenspower 23, Model AUOOTO was then inserted into the capsular bag. Excess Viscoelastic was thenaspirated, followed by hydration of the corneal wounds. No leaks were noted. Intracameralantibiotics and subtenon steroid injections were then given. The patient was returned to therecovery room after the lid speculum was removed and postop instructions were given out in detail. [address] [place] [address] OPERATIVE SUMMARYNAME: DELMA MOORE DATE OF : 1950TTENDING PHYS: Elva Becerra MD DATE: 11/16/20 MR#: [id number]: Elva Becerra MD 11/17/20 16:45DT: SSR 11/18/20 07:07DS: Elva Becerra MD 11/30/20 08:57 2 Name Value Range Interpretation Code Description Data Sandra rce(s) Supporting Document(s) ID Date Data Source [id number] 11/11/2020 12:03:00 PM EST [facility] Name Value Range Interpretation Code Description Data Sandra rce(s) Supporting Document(s) SARS-CoV-2 (COVID-19) Negative [facility] This lab was ordered by [facility] and reported by [facility]. ID Date Data Source [id number] 10/27/2020 02:28:51 PM EST [facility] Name Value Range Interpretation Code Description Data Sandra rce(s) Supporting Document(s) &PDF [facility] XKJVQt5eUtDHPpSz78/ZWLnnNKFhd9EsIEsrQEi3AMnyYVObP9JkxTguTEyVJxAPRPGAKUJeHPMiBMAs waW [file] ICAgICAgICAgICAgICAgICAgICAgICAgICAgICAgIC FaTXImHRCwVRTnHCQmTUStJZKhCWPlZZDaOFSuDIQiFIRkPVFlFLHrAO5DCYYcQRQuTVRlPCArZKUyYY AgICAgICAgICAgICAgICAgICAgICAgICAgICAgICAgICAgICAgICAgICAgICAgICAgICAgICAgICAgIC SfGVAxIGMpHTDkTWYaMLTgJHJyUYRaUF5MKUVmJGCb ICAgICAgICAgICAgICAgICAgICAgICAgICAgICAgICAgICAgICAgICAgICAgICAgICAgICAgICAgICAg IDLdZJQiVCAtOUZmXOPfQPNsJCJqBVTlMQZrMGZpLEOgYN4NZJMnOPExPLRnWWKtOISrFTDxWBHwKTNt ICAgICAgICAgICAgICAgICAgICAgICAgICAgICAgIC CmTOBsETGpZVNrBGNhSRLpYLRjPZLoUQMzBQVwSWCrUFJhWCIqMXTuIWScAI2HGISoVFJrXNFtRUGmIU AgICAgICAgICAgICAgICAgICAgICAgICAgICAgICAgICAgICAgICAgICAgICAgICAgICAgICAgICAgIC UxFZAsOWWmPBOnWYKlIGEjKNWeYWMnXVKdJA8ZFJTk ICAgICAgICAgICAgICAgICAgICAgICAgICAgICAgICAgICAgICAgICAgICAgICAgICAgICAgICAgICAg GPThGYPpBAMjOUKhNHHqLAAdRBQtPGPdAJFyWDRcMOGcHBDeQR2WRJEcTYGgRKMiNQEyNXWwUZIbAGNp ICAgICAgICAgICAgICAgICAgICAgICAgICAgICAgIC JlTPOyRQSnVVVpHIQwYZAsAPQwTXAaEVJbYNCoUOMzMTQmIDIkETOnHFEgIKVxCX2TWZGzBSXtLIMrHI AgICAgICAgICAgICAgICAgICAgICAgICAgICAgICAgICAgICAgICAgICAgICAgICAgICAgICAgICAgIC XvPYTeLRRlIPBaPUCdHELrCFIfJNQiSQEtMTSbZI2Z ICAgICAgICAgICAgICAgICAgICAgICAgICAgICAgICAgICAgICAgICAgICAgICAgICAgICAgICAgICAg SYEoGPLrINViHUHdWOSvSRAgOIJnRBYpFUVxEYMyYZZzSCMxSVCtUL0SLUFoNGCdFYUwIUOpVVZoOBMa ICAgICAgICAgICAgICAgICAgICAgICAgICAgICAgIC MkXFEeKMTnFTAzWIOjMSYgHISbHQAhZXVlKBOqRYGdOWSqIDYtNAKsYUCpYGVoOSClCS8UVL14xVPnf0 N4DDRkBW2tsfv/Ib9JAFeihjCitDBuNX1PTfJdVK0iqi0OHmPkBO8edp7BUNyLCjGzU0F6nTVcZCRaZO VTTkBgM35hYEqkWf36JWrgTMOaVxIbMTk5Vo6HEhSz N8vcUGElSiF5FZOvMlV6MZCsDyUnFTqfKI4Sn9OobBExQEd+Fx7FOD8uk2TlSGo8AFPoJV5ngu5HDAzZ TgAaB2N6aBMvV4J8RByoZx0PBRMxQOJwAdqdJHAXLJphHK1AES3xyxJ2CA8DoTFvUINnXRNlkADeHVz3 H77dhUCgPJcoBH1MYWY+Jose Elias+Co6SEFZmNOMaSUUhHj EvIROWOkBiN36fjNFzOUFgWDV8EUQoMz9ESKMmV4GnatNdqSwrkuPlMQXjMHLRNH2OHYryrhGpxHGayN eaTG12cNrxHI0PMc1TGaOoCY9gaa9JeXMhSe8VJFN8VT1BLFVqQLGtCAAaHYP9VZUnCbLxOAiyGBWcLB ToFOM6QPPyVWWbYS9CJtNrVALiTqraMPJuKPQhXWBd ul4EWIUaAHM6WBMmPjFwLPNaXANnALzeOFRaYRNtAMh7NBOpAPExVV7YPdFnTUXuFCR6SuHmGKZvJXOw wb0YYJYoZFQuBsmeIwPcLBDhWVFqYPaqMLPdKSJ2TQFkTTWoVKPoUB8ZIzEhHIHvSPVvSEoeEUVrRHWg ln0OJGRqRAYaXaE3MxRaSEQdPOGqXHhvSQRoUPK2Yq hzDTFtPIWaLN2UTqNtTZXkLAx6ENAqGMLkPEWsxv3QQYZyDLEcWXLqGzKgMRBvQOFjZVzuGCKwDCY3Wn J8FEPlDOGoCJ1DMcChSJIiIEg2CTQdBKUyMAKvhd7WYZKiPMAzQjZ1NRViHMNhIYBtXTjiLCBdOLYcLX h7KJMsRKPcXA7CQoZkUOZvRGWqPLupENKnYLTkmi2U YEDrIGVgCNDvLzAsYLWgMGUeTCquZCSsNMZ9LXe6GTYnQNHeAV2SWtGcKRJvROS0SHPsUJXmKCOnwp6H YSVxRYOjWZwgFWViFZDuDKRhERruAFEvSAZ8DZe0OBVeAUHkYS8HQfWhNTWxGjQ1PIdlPVHjJPSwme4M SETaXNNyGBD6UkZuJJIoNWIlVKjsQGOsVAY7IGK2JO YgIJXlHF4NQgGvXXHzTel1SVGvQAArYAZxcu5CXCLwKHToKJO8QSIfDIMgTTYcHRlcUVBcQUPoMwi9SE WgUFRgQR5ICqLrSXNiLhouWuHzCFUrIUPcyv7NOCMhKOPiZKB1ABVqPNUgLYCjPFreXILyUMMaWBJ8CH HjEDMyBW5ZAtKdXVPfMMD1WYJsEYXaBSBjac5CTOQa NGU4QYM8RKBpHJVoGIQsOLbyXHHaRMGcZhA6LFPjJVOiYZ9MInJpFSVhOCQ0TaQvPLUvSWSwpt3WVMAe DUE0LBE4LeKzHVDnKOHcBGkwBTMkXNE3ZZF1ZQOxLOIoZQ5SFdJeZTKvEbS0WMHlPTNbXRQrbi1CGGQu BWM1XzI2UmGtTTUxUZKpTUfvDYOjBGG6EPUeLPTzLU NdAJ4ZWvNpHTzgKQUFUhj5RCpvX1j1XZK6WT6EA2Cht4BwPAUvRWOMUUccFF6fejWkLAWwSz7YY5lXPf blCGE7KSM3AGUqQSRyLYG0UEkqPjDnUPIjIYR4BpP6AK9xJZJ7LTM5MjXbBfJlFmN8BjvmBdDvYYN9Gi TnYXIlZCZjOaCjRX2XZi7QKsO7TND7kFCqPr7AEpyuURsMGoKwQB2BGOn= ID Date Data Source [id number] 10/22/2020 01:25:40 PM EST [facility]: Oscar NguyễnDOB: 1950Provider: Sultana Champion: 10/19/2020 Reason For VisitDale Delma is here today for Right Knee. Patient states injection at her last visit was helpful. The patient was notified that the office visit was recorded to enhance documentation accuracy. Patient is retired. History of Present IllnessCHIEF COMPLAINTFollow- up of right knee. HISTORY OF PRESENT ILLNESSMsFrandy Moore is a 70-year-old female who presents for follow-up evaluation of her right knee. She was last seen approximately 3 months ago. She has bilateral end-stage degenerative osteoarthritis. Her last injections were performed in 06/2020 which provided relief. She notes she has an infection on her left knee for which she completed a course of antibiotics on 10/15/2020. She denies any new injuries. She localizes her right knee pain to her medial knee. She is retired. AssessmentASSESSMENTRight knee primary degenerative osteoarthritis. PlanPLANThe patient has primary degenerative osteoarthritis in her bilateral knees. Her symptoms are moderate, but she would like to go forward with another injection as she got good relief from the one 3 months ago. This was performed today without difficulty. We are holding off on injecting the left knee as she does have a bit of cellulitis in the pretibial area. All questions were answered. She will follow as needed. The patient understands and agrees with this plan.PROCEDUREThe right knee was injected under sterile conditions with 80 mg of Depo-Medrol and 9 cc of 0.5% Marcaine. No complications were encountered. I advised the patient that steroid injections are frequently used to provide relief from musculoskeletal pain and to aid in the diagnosis of musculoskeletal problems. This injection offers a variety of benefits and various potential risks associated with the medication administered during the injection. I informed the patient that alternatives to this injection include no treatment, use of rehabilitation and exercise, use of a different medication, and surgical intervention when appropriate. I advised the patient that risks associated with this injection include an allergic reaction to the medication, pain at the injection site, possible infection of the injection site, facial flushing and skin changes, temporary increase in blood sugar, tendon/muscle/nerve injury, avascular necrosis, and that there may not be any beneficial effect realized. Having discussed benefits, alternatives, and risks to the intervention, the patient elected to proceed with the procedure and tolerated it well. Scribed by Soumya Mackey on 10/19/2020 at 07:16 PM for Dick Champion Signatures Electronically signed by : Soumya Mackey MA; Oct 19 2020 7:16PM EST (Author) Electronically signed by : Dick Champion M.D.; Oct 22 2020 1:25PM EST Name Value Range Interpretation Code Description Data Sandra rce(s) Supporting Document(s) ID Date Data Source [id number] 08/31/2020 11:15:00 AM EST [facility] Name Value Range Interpretation Code Description Data Sandra rce(s) Supporting Document(s) SARS coronavirus 2 RNA [facility] This lab was ordered by [facility] and reported by [facility]. ID Date Data Source [id number] 07/22/2020 07:35:33 AM EDT [facility]: Oscar NguyễnDOB: 1950Provider: Dick ChampionCHASITY: 07/20/2020 Reason For VisitDale Delma is here today for Bilateral Knees. Oscar Nguyễn is an established patient here for follow up. The patient was notified that the office visit was recorded to enhance documentation accuracy. Patient is retired. History of Present IllnessCHIEF COMPLAINTFollow-up bilateral knees.HISTORY OF PRESENT ILLNESSMsFrandy Nguyễn is a 70-year-old female who presents for follow-up evaluation of her bilateral knees. No new images are taken today. She is followed for bilateral degenerative osteoarthritis to a severe degree. The patient confirms that is has been a while since she received an injection for 1 of her knees, as she had cellulitis in it when she last received an injection.The patient confirms that she has psoriasis. She denies any health issues in the past 1-3 weeks, including coughs or colds. AssessmentASSESSMENTBilateral knee end-stage primary degenerative osteoarthritis.PLANI reviewed with the patient the exam findings, which reveal bilateral knee end-stage primary degenerative osteoarthritis. We discussed her diagnosis as well as treatment options, including additional cortisone injections. All questions were answered. She will follow up as needed. The patient understands and agrees with this plan.PROCEDUREThe right knee was injected under sterile conditions with 80 mg of Depo-Medrol and 9 cc of 0.5% Marcaine. No complications were encountered. I advised the patient that steroid injections are frequently used to provide relief from musculoskeletal pain and to aid in the diagnosis of musculoskeletal problems. This injection offers a variety of benefits and various potential risks associated with the medication administered during the injection. I informed the patient that alternatives to this injection include no treatment, use of rehabilitation and exercise, use of a different medication, and surgical intervention when appropriate. I advised the patient that risks associated with this injection include an allergic reaction to the medication, pain at the injection site, possible infection of the injection site, facial flushing and skin changes, temporary increase in blood sugar, tendon/muscle/nerve injury, avascular necrosis, and that there may not be any beneficial effect realized. Having discussed benefits, alternatives, and risks to the intervention, the patient elected to proceed with the procedure and tolerated it well.The left knee was injected under sterile conditions with 80 mg of Depo-Medrol and 9 cc of 0.5% Marcaine. No complications were encoun tered. I advised the patient that steroid injections are frequently used to provide relief from musculoskeletal pain and to aid in the diagnosis of musculoskeletal problems. This injection offers a variety of benefits and various potential risks associated with the medication administered during the injection. I informed the patient that alternatives to this injection include no treatment, use of rehabilitation and exercise, use of a different medication, and surgical intervention when appropriate. I advised the patient that risks associated with this injection include an allergic reaction to the medication, pain at the injection site, possible infection of the injection site, facial flushing and skin changes, temporary increase in blood sugar, tendon/muscle/nerve injury, avascular necrosis, and that there may not be any beneficial effect realized. Having discussed benefits, alternatives, and risks to the intervention, the patient elected to proceed with the procedure and tolerated it well. Scribed by Ken Jurado on 07/21/2020 at 06:42 PM for Dick Champion Signatures Electronically signed by : Ken Jurado MA; Jul 21 2020 6:42PM EST (Author) Electronically signed by : Dick Champion M.D.; Jul 22 2020 7:35AM EST Name Value Range Interpretation Code Description Data Sandra rce(s) Supporting Document(s) ID Date Data Source [id number] 07/14/2020 12:00:00 PM EDT [facility] Name Value Range Interpretation Code Description Data Sandra rce(s) Supporting Document(s) SARS coronavirus 2 RNA [facility] This lab was ordered by [facility] and reported by [facility]. Procedure Social History Code Duration Value Status Description Data Source(s ) Smoking 03/06/2021 12:00:00 AM EDT Never Smoker completed Never S kelly eCW1 ([facility]) Smoking 02/28/2021 12:00:00 AM EDT Never Smoker completed Never S moker eCW1 ([facility]) Smoking 02/28/2021 12:00:00 AM EDT Never Smoker completed Never S moker eCW1 ([facility]) Smoking 02/17/2021 12:00:00 AM EDT Never Smoker completed Never S moker eCW1 ([facility]) Smoking 02/06/2021 12:00:00 AM EDT Never Smoker completed Never S moker eCW1 ([facility]) Smoking 01/23/2021 12:00:00 AM EDT Never Smoker completed Never S moker eCW1 ([facility]) Smoking 01/20/2021 12:00:00 AM EDT Never Smoker completed Never S moker eCW1 ([facility]) Smoking 12/19/2020 12:00:00 AM EDT Never Smoker completed Never S moker eCW1 ([facility]) Smoking 12/19/2020 12:00:00 AM EDT Never Smoker completed Never S moker eCW1 ([facility]) Smoking 12/19/2020 12:00:00 AM EDT Never Smoker completed Never S moker eCW1 ([facility]) Smoking 12/19/2020 12:00:00 AM EDT Never Smoker completed Never S moker eCW1 ([facility]) Smoking 12/19/2020 12:00:00 AM EDT Never Smoker completed Never S moker eCW1 ([facility]) Smoking 10/19/2020 12:00:00 AM EST Never Smoker completed Never S moker eCW1 ([facility]) Smoking 10/19/2020 12:00:00 AM EST Never Smoker completed Never S moker eCW1 ([facility]) Smoking 10/19/2020 12:00:00 AM EST Never Smoker completed Never S moker eCW1 ([facility]) Smoking 10/19/2020 12:00:00 AM EST Never Smoker completed Never S moker eCW1 ([facility]) Smoking 10/19/2020 12:00:00 AM EST Never Smoker completed Never S moker eCW1 ([facility]) Smoking 10/19/2020 12:00:00 AM EST Never Smoker completed Never S moker eCW1 ([facility]) Smoking 09/19/2020 12:00:00 AM EST Never Smoker completed Never S moker eCW1 ([facility]) Smoking 09/19/2020 12:00:00 AM EST Never Smoker completed Never S moker eCW1 ([facility]) Smoking 09/19/2020 12:00:00 AM EST Never Smoker completed Never S moker eCW1 ([facility]) Smoking 09/06/2020 12:00:00 AM EST Never Smoker completed Never S moker eCW1 ([facility]) Smoking 09/06/2020 12:00:00 AM EST Never Smoker completed Never S moker eCW1 ([facility]) Smoking 08/05/2020 12:00:00 AM EST Never Smoker completed Never S moker eCW1 ([facility]) Smoking 07/19/2020 12:00:00 AM EDT Never Smoker completed Never S moker eCW1 ([facility]) Smoking 07/18/2020 12:00:00 AM EDT Never Smoker completed Never S moker eCW1 ([facility]) Vital Signs ID Date Data Source UNK Name Value Range Interpretation Code Description Data Source(s) Body weight 251 [lb_av] 251 [lb_av] eCW1 ([facility]) Body height 63.50 [in_i] 63.50 [in_i] eCW1 ([facility]) Body mass index (BMI) [Ratio] 43.76 kg/m2 43.76 kg/m2 eCW1 ([facility]) Heart rate 96 /min 96 /min eCW1 ([facility]) Respiratory rate 18 /min 18 /min eCW1 ([facility]) Body temperature 97.4 [degF] 97.4 [degF] eCW1 ( [facility]) Systolic blood pressure 120 mm[Hg] 120 mm[Hg] e CW1 ([facility]) Diastolic blood pressure 64 mm[Hg] 64 mm[Hg] eCW1 ([facility]) Body weight 251 [lb_av] 251 [lb_av] eCW1 ([facility]) Body height 63.50 [in_i] 63.50 [in_i] eCW1 ([facility]) Body mass index (BMI) [Ratio] 43.76 kg/m2 43.76 kg/m2 eCW1 ([facility]) Heart rate 81 /min 81 /min eCW1 ([facility]) Respiratory rate 18 /min 18 /min eCW1 ([facility]) Body temperature 97 [degF] 97 [degF] eCW1 ([facility]) Systolic blood pressure 126 mm[Hg] 126 mm[Hg] e CW1 ([facility]) Diastolic blood pressure 60 mm[Hg] 60 mm[Hg] eCW1 ([facility]) Body weight [lb_av] eCW1 ([facility]) Body height 63.50 [in_i] 63.50 [in_i] eCW1 ([facility]) Body mass index (BMI) [Ratio] 44.60 kg/m2 44.60 kg/m2 eCW1 ([facility]) Heart rate 103 /min 103 /min eCW1 ([facility]) Respiratory rate 18 /min 18 /min eCW1 ([facility]) Body temperature 97.8 [degF] 97.8 [degF] eCW1 ( [facility]) Systolic blood pressure 108 mm[Hg] 108 mm[Hg] e CW1 ([facility]) Diastolic blood pressure 72 mm[Hg] 72 mm[Hg] eCW1 ([facility]) Body weight 255.8 [lb_av] 255.8 [lb_av] eCW1 ([facility]) Body height 63.50 [in_i] 63.50 [in_i] eCW1 ([facility]) Body mass index (BMI) [Ratio] 44.60 kg/m2 44.60 kg/m2 eCW1 ([facility]) Heart rate 89 /min 89 /min eCW1 ([facility]) Respiratory rate 18 /min 18 /min eCW1 ([facility]) Body temperature 97.5 [degF] 97.5 [degF] eCW1 ( [facility]) Systolic blood pressure 130 mm[Hg] 130 mm[Hg] e CW1 ([facility]) Diastolic blood pressure 61 mm[Hg] 61 mm[Hg] eCW1 ([facility]) Body mass index (BMI) [Ratio] 45.12 kg/m2 45.12 kg/m2 eCW1 ([facility]) Body weight 258.8 [lb_av] 258.8 [lb_av] eCW1 ([facility]) Heart rate 77 /min 77 /min eCW1 ([facility]) Respiratory rate 18 /min 18 /min eCW1 ([facility]) Body temperature 96.9 [degF] 96.9 [degF] eCW1 ( [facility]) Systolic blood pressure 141 mm[Hg] 141 mm[Hg] e CW1 ([facility]) Diastolic blood pressure 63 mm[Hg] 63 mm[Hg] eCW1 ([facility]) Body height 63.50 [in_i] 63.50 [in_i] eCW1 ([facility]) Body weight 257 [lb_av] 257 [lb_av] eCW1 ([facility]) Body height 63.50 [in_i] 63.50 [in_i] eCW1 ([facility]) Body mass index (BMI) [Ratio] 44.81 kg/m2 44.81 kg/m2 eCW1 ([facility]) Heart rate 70 /min 70 /min eCW1 ([facility]) Respiratory rate 18 /min 18 /min eCW1 ([facility]) Body temperature 96.7 [degF] 96.7 [degF] eCW1 ( [facility]) Systolic blood pressure 114 mm[Hg] 114 mm[Hg] e CW1 ([facility]) Diastolic blood pressure 56 mm[Hg] 56 mm[Hg] eCW1 ([facility]) Systolic blood pressure 124 mm[Hg] 124 mm[Hg] e CW1 ([facility]) Body weight 254.4 [lb_av] 254.4 [lb_av] eCW1 ([facility]) Body height 63.50 [in_i] 63.50 [in_i] eCW1 ([facility]) Body mass index (BMI) [Ratio] 44.35 kg/m2 44.35 kg/m2 eCW1 ([facility]) Heart rate 104 /min 104 /min eCW1 ([facility]) Respiratory rate 18 /min 18 /min eCW1 ([facility]) Body temperature 97.2 [degF] 97.2 [degF] eCW1 ( [facility]) Diastolic blood pressure 68 mm[Hg] 68 mm[Hg] eCW1 ([facility]) Heart rate 90 /min 90 /min MEDENT ([facility], [facility]) Respiratory rate 16 /min 16 /min MEDENT ( [facility], [facility]) Oxygen saturation in Arterial blood by Pulse oximetry 99 % 99 % MEDENT ([facility], [facility]) Body temperature 98.7 [degF] 98.7 [degF] MEDENT ([facility], [facility]) Body weight 255.00 [lb_av] 255.00 [lb_av] MEDEN T ([facility], [facility]) Body height 64.5 [in_i] 64.5 [in_i] MEDENT ([facility], [facility]) 5'4.50" Body mass index (BMI) [Ratio] 43.1 kg/m2 43.1 k g/m2 MEDENT ([facility], [facility]) Systolic blood pressure 112 mm[Hg] 112 mm[Hg] M EDENT ([facility], [facility]) Diastolic blood pressure 74 mm[Hg] 74 mm[Hg] MEDENT ([facility], [facility]) Heart rate 91 /min 91 /min eCW1 ([facility]) Body weight 252.2 [lb_av] 252.2 [lb_av] eCW1 ([facility]) Respiratory rate 18 /min 18 /min eCW1 ([facility]) Body height 63.50 [in_i] 63.50 [in_i] eCW1 ([facility]) Body mass index (BMI) [Ratio] 43.97 kg/m2 43.97 kg/m2 eCW1 ([facility]) Body temperature 96.7 [degF] 96.7 [degF] eCW1 ( [facility]) Diastolic blood pressure 60 mm[Hg] 60 mm[Hg] eCW1 ([facility]) Systolic blood pressure 131 mm[Hg] 131 mm[Hg] e CW1 ([facility]) Systolic blood pressure 112 mm[Hg] 112 mm[Hg] M EDENT ([facility], [facility]) Diastolic blood pressure 70 mm[Hg] 70 mm[Hg] MEDENT ([facility], [facility]) Respiratory rate 14 /min 14 /min MEDENT ( [facility], [facility]) Oxygen saturation in Arterial blood by Pulse oximetry 97 % 97 % MEDENT ([facility], [facility]) Body temperature 96.8 [degF] 96.8 [degF] MEDENT ([facility], [facility]) Body weight 255.00 [lb_av] 255.00 [lb_av] MEDEN T ([facility], [facility]) Body height 64.5 [in_i] 64.5 [in_i] MEDENT ([facility], [facility]) 5'4.50" Body mass index (BMI) [Ratio] 43.1 kg/m2 43.1 k g/m2 MEDENT ([facility], [facility]) Heart rate 81 /min 81 /min MEDENT ([facility], [facility]) Body weight 255 [lb_av] 255 [lb_av] eCW1 ([facility]) Respiratory rate 18 /min 18 /min eCW1 ([facility]) Body temperature 97.5 [degF] 97.5 [degF] eCW1 ( [facility]) Systolic blood pressure 132 mm[Hg] 132 mm[Hg] e CW1 ([facility]) Diastolic blood pressure 74 mm[Hg] 74 mm[Hg] eCW1 ([facility]) Body height 63.50 [in_i] 63.50 [in_i] eCW1 ([facility]) Body mass index (BMI) [Ratio] 44.46 kg/m2 44.46 kg/m2 eCW1 ([facility]) Heart rate 104 /min 104 /min eCW1 ([facility]) Body weight 255.8 [lb_av] 255.8 [lb_av] eCW1 ([facility]) Body height 63.50 [in_i] 63.50 [in_i] eCW1 ([facility]) Body mass index (BMI) [Ratio] 44.60 kg/m2 44.60 kg/m2 eCW1 ([facility]) Heart rate 78 /min 78 /min eCW1 ([facility]) Respiratory rate 18 /min 18 /min eCW1 ([facility]) Body temperature 95.5 [degF] 95.5 [degF] eCW1 ( [facility]) Systolic blood pressure 131 mm[Hg] 131 mm[Hg] e CW1 ([facility]) Diastolic blood pressure 63 mm[Hg] 63 mm[Hg] eCW1 ([facility]) Body weight 252.4 [lb_av] 252.4 [lb_av] eCW1 ([facility]) Body height 63.50 [in_i] 63.50 [in_i] eCW1 ([facility]) Body mass index (BMI) [Ratio] 44.00 kg/m2 44.00 kg/m2 eCW1 ([facility]) Heart rate 86 /min 86 /min eCW1 ([facility]) Respiratory rate 18 /min 18 /min eCW1 ([facility]) Body temperature 96.5 [degF] 96.5 [degF] eCW1 ( [facility]) Systolic blood pressure 110 mm[Hg] 110 mm[Hg] e CW1 ([facility]) Diastolic blood pressure 68 mm[Hg] 68 mm[Hg] eCW1 ([facility]) Diastolic blood pressure 60 mm[Hg] 60 mm[Hg] eCW1 ([facility]) Body weight 260 [lb_av] 260 [lb_av] eCW1 ([facility]) Body height 63.50 [in_i] 63.50 [in_i] eCW1 ([facility]) Body mass index (BMI) [Ratio] 45.33 kg/m2 45.33 kg/m2 eCW1 ([facility]) Heart rate 100 /min 100 /min eCW1 ([facility]) Respiratory rate 18 /min 18 /min eCW1 ([facility]) Body temperature 96.6 [degF] 96.6 [degF] eCW1 ( [facility]) Systolic blood pressure 128 mm[Hg] 128 mm[Hg] e CW1 ([facility]) ID Date Data Source [id number] 01/11/2021 03:21:33 PM EDT [facility] Name Value Range Interpretation Code Description Data Source(s) WEIGHT RECORDED 254.00 pounds 254.00 pounds [facility] Height 64 Inches 064 Inches [facility] ID Date Data Source [id number] 11/30/2020 09:21:08 AM EST [facility] Name Value Range Interpretation Code Description Data Source(s) WEIGHT RECORDED 255.00 pounds 255.00 pounds [facility] Height 64 Inches 064 Inches [facility]
--- OUTSIDE RECORDS SUMMARY | 2021-08-31 22:39 | CCD ---
Author Author [facility] Organization [facility] Address Unknown Phone Unavailable Care Team Providers Care Coal Washer Name Role Phone Nico Champion MD Unavailable [...] Unavailable Elva Becerra MD Unavailable Unavailable Elva eBcerra MD Unavailable Unavailable Elva Becerra MD Unavailable Unavailable Elva Becerra MD Unavailable Unavailable Elva Becerra MD Unavailable Unavailable Elva Becerra MD Unavailable Unavailable Elva Becerra MD Unavailable Unavailable Elva Becerra MD Unavailable Unavailable Elva Becerra MD Unavailable Unavailable Elva Becerra MD Unavailable Unavailable Elva Becerra MD Unavailable Unavailable Elva Becerra MD Unavailable Unavailable Gabris, Ellie Davis MD, [facility] Unavailable Unavailable Gabris, Ellie Davis MD, [facility] Unavailable Unavailable Gabris, Ellie Davis MD, [facility] Unavailable Unavailable Gabris, Ellie Davis MD, [facility] Unavailable Unavailable Gabris, Ellie Davis MD, [facility] Unavailable Unavailable Gabris, Ellie Davis MD, [facility] Unavailable Unavailable Gabris, Ellie Davis MD, [facility] Unavailable Unavailable Gabris, Ellie Davis MD, [facility] Unavailable Unavailable Gabris, Ellie Davis MD, [facility] Unavailable Unavailable Gabris, Ellie Davis MD, [facility] Unavailable Unavailable Gabris, Ellie Davis MD, [facility] Unavailable Unavailable Gabris, Ellie Davis MD, [facility] Unavailable Unavailable Gabris, Ellie Davis MD, [facility] Unavailable Unavailable Gabris, Ellie Davis MD, [facility] Unavailable Unavailable Gabris, Ellie Davis MD, [facility] Unavailable Unavailable Gabris, Ellie Davis MD, [facility] Unavailable Unavailable Gabris, Ellie Davis MD, [facility] Unavailable Unavailable Gabris, Ellie Davis MD, [facility] Unavailable Unavailable Gabris, Ellie Davis MD, [facility] Unavailable Unavailable Gabris, Ellie Davis MD, [facility] Unavailable Unavailable Gabris, Ellie Davis MD, [facility] Unavailable Unavailable Gabris, Ellie Davis MD, [facility] Unavailable Unavailable Gabris, Ellie Davis MD, [facility] Unavailable Unavailable Gabris, Ellie Davis MD, [facility] Unavailable Unavailable Gabris, Ellie Davis MD, [facility] Unavailable Unavailable Gabris, Ellie Davis MD, [facility] Unavailable Unavailable Gabris, Ellie Davis MD, [facility] Unavailable Unavailable Gabris, Ellie Davis MD, [facility] Unavailable Unavailable Gabris, Ellie aDvis MD, [facility] Unavailable Unavailable Gabris, Ellie Davis MD, [facility] Unavailable Unavailable Gabris, Ellie Davis MD, [facility] Unavailable Unavailable Gabris, Ellie Davis MD, [facility] Unavailable Unavailable Gabris, Ellie Davis MD, [facility] Unavailable Unavailable Gabris, Ellie Davis MD, [facility] Unavailable Unavailable Gabris, Ellie Davis MD, [facility] Unavailable Unavailable Gabris, Ellie Davis MD, [facility] Unavailable Unavailable Gabris, Ellie Davis MD, [facility] Unavailable Unavailable Gabris, Ellie Davis MD, [facility] Unavailable Unavailable Gabris, Ellie Davis MD, [facility] Unavailable Unavailable Gabris, Ellie Davis MD, [facility] Unavailable Unavailable Gabris, Ellie Davis MD, [facility] Unavailable Unavailable Gabris, Ellie Davis MD, [facility] Unavailable Unavailable Gabris, Ellie Davis MD, [facility] Unavailable Unavailable Gabris, Ellie Davis MD, [facility] Unavailable Unavailable Gabris, Ellie Davis MD, [facility] Unavailable Unavailable Gabris, Ellie Davis MD, [facility] Unavailable Unavailable Gabris, Ellie Davis MD, [facility] Unavailable Unavailable Gabris, Ellie Davis MD, [facility] Unavailable Unavailable Gabris, Ellie Davis MD, [facility] Unavailable Unavailable Gabris, Ellie Davis MD, [facility] Unavailable Unavailable Gabris, Ellie Davis MD, [facility] Unavailable Unavailable Gabris, Ellie Davis MD, [facility] Unavailable Unavailable Gabris, Ellie Davis MD, [facility] Unavailable Unavailable Gabris, Ellie Davis MD, [facility] Unavailable Unavailable Gabris, Ellie Davis MD, [facility] Unavailable Unavailable Gabris, Ellie Davis MD, [facility] Unavailable Unavailable Gabris, Ellie Davis MD, [facility] Unavailable Unavailable Gabris, Ellie Davis MD, [facility] Unavailable Unavailable Gabris, Ellie Davis MD, [facility] Unavailable Unavailable Gabris, Ellie Davis MD, [facility] Unavailable Unavailable Gabris, Ellie Davis MD, [facility] Unavailable Unavailable Gabris, Ellie Davis MD, [facility] Unavailable Unavailable Gabris, Ellie Davis MD, [facility] Unavailable Unavailable Gabris, Ellie Davis MD, [facility] Unavailable Unavailable Gabris, Ellie Davis MD, [facility] Unavailable Unavailable Gabris, Ellie Davis MD, [facility] Unavailable Unavailable Gabris, Ellie Davis MD, [facility] Unavailable Unavailable Gabris, Ellie Davis MD, [facility] Unavailable Unavailable Gabris, Ellie Davis MD, [facility] Unavailable Unavailable Gabris, Ellie Davis MD, [facility] Unavailable Unavailable Gabris, Ellie Davis MD, [facility] Unavailable Unavailable Gabris, Ellie Davis MD, [facility] Unavailable Unavailable Celine Cotter RN Unavailable Unavailable Celine Cotter RN Unavailable Unavailable Celine Cotter RN Unavailable Unavailable Celine Cotter RN Unavailable Unavailable Celine Cotter RN Unavailable Unavailable Celine Cotter RN Unavailable Unavailable Celnie Cotter RN Unavailable Unavailable Celine Cotter RN [...] is protected by Article 27-F of the [facility] Public Health law. If you continue you may have access to information: Regarding HIV / AIDS; Provided by facilities licensed or operated by the [facility] Office of Mental Health; or Provided by the [facility] Office for People With Developmental Disabilities. If such information is present, then the following [facility] mandated warning applies: This information has been [...] law may result in a fine or fdc sentence or both. A general authorization for the release of medical or other information is NOT sufficient authorization for further disc losure. Allergies and Adverse Reactions Type Description Substance Reaction Status Data Source(s ) No Known Environmental Allergies No Known Environmental Al lergies [facility] No Known Food Allergies No Known Food Allergies [facility] Propensity to adverse reactions [facility] Drug allergy NAPROXEN N[facility]RO[facility]EN [facility] Drug allergy ASPIRIN ASPIRIN [facility] Family History Family Member Name Family Member Gender Family Member Status Date o f Status Description Data Source(s) Unknown Unknown Problem MEDENT ([facility]) Unknown Female Problem MEDENT ([facility]) Unknown Female Problem MEDENT ([facility]) Encounters Encounter Providers Location Date Indications Data Source(s ) Outpatient Attender: Dick Champion MDReferrer: Raeann COLINDRES 06/08/2021 07:30:56 PM EDT [facility] Recurring Patient Referrer: Raeann COLINDRES 06/07/2021 01:03:29 PM EDT [facility] Outpatient Attender: Ryan Quan MD, [facility] [email or web address] L 04/20/2021 12:00:00 AM EDT - 04/20/2021 01:47:31 PM EDT [facility] Out[place] [address] [facility] [address] 03/06/2021 12:00:00 AM EDT eCW1 ([facility]) [place]patient [address] [facility] [place] [address] 02/28/2021 12:00:00 AM EDT eCW1 ([facility]) [place] [address] [facility] [address] 02/17/2021 12:00:00 AM EDT eCW1 ([facility]) Unknown [address] [facility] [address] 02/17/2021 12:00:00 AM EDT eCW1 ([facility]) Outpatient Attender: Dick Champion MDReferrer: Raeann COLINDRES 02/10/2021 07:45:17 AM EDT [facility] [place]patient [address] [facility] [address] 02/06/2021 12:00:00 AM EDT eCW1 ([facility]) (PN Proc 45) Pain Procedure 45 [address] [place] [address] 01/23/2021 12:00:00 AM EDT eCW1 ([facility]) Unknown [address] [facility], [facility] [address] 01/20/2021 12:00:00 AM EDT eCW1 ([facility]) [place] [address] [facility] [address] 01/12/2021 12:00:00 AM EDT eCW1 ([facility]) [place] [address] [facility] [place] [address] 01/10/2021 12:00:00 AM EDT eCW1 ([facility]) Unknown [address] [facility] [address] 01/02/2021 12:00:00 AM EDT eCW1 ([facility]) Unknown [address] [facility] [place] [address] 12/19/2020 12:00:00 AM EDT eCW1 ([facility]) Outpatient [facility] [facility] [place] [address] 12/19/2020 12:00:00 AM EDT eCW1 ([facility]) Outpatient Attender: Elva Becerra MDConsultant: STAFF NON 12/07/2020 09:30:00 AM EST - 12/07/2020 11:50:00 AM EST [facility] Patient discharged. [place] [address] [facility] [address] 12/05/2020 12:00:00 AM EST eCW1 ([facility]) Outpatient Attender: Elva Becerra MDConsultant: STAFF NON 11/16/2020 07:30:00 AM EST - 11/16/2020 10:00:00 AM EST [facility] Patient discharged. Outpatient Attender: Elva Becerra MDConsultant: STAFF NON 11/11/2020 08:47:53 AM EST - 11/14/2020 12:20:00 PM EST [facility] Patient discharged. Outpatient Attender: Celine Cotter RNReferrer: Celine [email or web address]-[email or web address] 10/27/2020 01:30:33 PM EST - 10/27/2020 02:22:13 PM EST [facility] Outpatient Attender: Ryan Quan MD, [place]ver[place] r: Celine MÁRQUEZP.PUL-[email or web address] 10/27/2020 12:00:00 AM EST - 10/27/2020 02:23:01 PM EST [facility] Outpatient Attender: Dick Champion MDReferrer: Raeann COLINDRES 10/22/2020 01:25:40 PM EST [facility] [place] [address] [facility] [address] 10/20/2020 12:00:00 AM EST eCW1 ([facility]) [place] [address] [facility] [address] 10/19/2020 12:00:00 AM EST eCW1 ([facility]) [place] [address] [facility] [address] 10/14/2020 12:00:00 AM EST eCW1 ([facility]) Outpatient Attender: ELPIDIO farris 10/06/2020 12:00:00 PM EST MEDENT ([facility]) Outpatient [address] [facility] [address] 09/19/2020 12:00:00 AM EST eCW1 ([facility]) Outpatient Attender: ELPIDIO farris 09/15/2020 10:30:00 AM EST MEDENT ([facility]) Outpatient [address] [facility] [address] 09/06/2020 12:00:00 AM EST eCW1 ([facility]) (PN Proc 45) Pain Procedure 45 [address] [place] [id number] 09/05/2020 12:00:00 AM EST eCW1 ([facility]) Outpatient [address] [facility] [address] 08/05/2020 12:00:00 AM EST eCW1 ([facility]) [facility] [address] [facility] [address] 08/02/2020 12:00:00 AM EST eCW1 ([facility]) Outpatient Attender: Dick Champion MDReferrer: Raeann COLINDRES 07/22/2020 07:35:33 AM EDT [facility] Recurring Patient Referrer: Raeann COLINDRES 07/20/2020 02:19:29 PM EDT [facility] Recurring Patient Referrer: Raeann COLINDRES 07/20/2020 02:19:10 PM EDT [facility] (PN Proc 60) Pain Procedure 60 [address] [place] [address] 07/19/2020 12:00:00 AM EDT eCW1 ([facility]) Unknown [address] [facility] [address] 07/18/2020 12:00:00 AM EDT eCW1 ([facility]) Unknown [address] [facility] [address] 07/14/2020 12:00:00 AM EDT eCW1 ([facility]) Immunizations Vaccine Date Status Description Data Source(s) COVID-19 VACC, MRNA(PFIZER)/PF 03/27/2021 12:00:00 AM EDT completed [facility] COVID-19 VACCINE Pfizer 03/26/2021 12:00:00 AM EDT completed [facility] Vaccine Series Complete: YESThis Data wa s Submitted to [facility] Via [facility]. COVID-19 VACC, MRNA(PFIZER)/PF 03/06/2021 12:00:00 AM EDT completed [facility] COVID-19 VACCINE Pfizer 03/06/2021 12:00:00 AM EDT completed [facility] Vaccine Series Complete: NOThis Data was Submitted to [facility] Via [facility]. INFLUENZA VACCINE QUADRIVALENT 2019- (65 YR UP)/MF59 [...] active Amoxicillin-Pot Cla vulanate 875-125 MG W1 ([facility]) Amoxicillin 875 MG / Clavulanate 125 MG Oral Tablet Amoxicillin-Pot Clavulanate 875-125 MG Amoxicillin-Pot Clavulanate 875-125 MG 01/14/2021 12:00:00 AM ED T 1.0 {tablet} active Amoxicillin-Pot Cla vulanate 875-125 MG eCW1 ([facility]) Amoxicillin 875 MG / Clavulanate 125 MG Oral Tablet Amoxicillin-Pot Clavulanate 875-125 MG Amoxicillin-Pot Clavulanate 875-125 MG 01/14/2021 12:00:00 AM ED T 1.0 {tablet} suspended Amoxicillin-Pot C lavulanate 875-125 MG eCW1 ([facility]) Amoxicillin 875 MG / Clavulanate 125 MG Oral Tablet Amoxicillin-Pot Clavulanate 875-125 MG Amoxicillin-Pot Clavulanate 875-125 MG 01/14/2021 12:00:00 AM ED T 1.0 {tablet} active Amoxicillin-Pot Cla vulanate 875-125 MG eCW1 ([facility]) Amoxicillin 875 MG / Clavulanate 125 MG Oral Tablet Amoxicillin-Pot Clavulanate 875-125 MG Amoxicillin-Pot Clavulanate 875-125 MG 01/14/2021 12:00:00 AM ED T 1.0 {tablet} suspended Amoxicillin-Pot C lavulanate 875-125 MG eCW1 ([facility]) Amoxicillin 875 MG / Clavulanate 125 MG Oral Tablet Amoxicillin-Pot Clavulanate 875-125 MG Amoxicillin-Pot Clavulanate 875-125 MG 01/14/2021 12:00:00 AM ED T 1.0 {tablet} suspended Amoxicillin-Pot C lavulanate 875-125 MG eCW1 ([facility]) Amoxicillin 875 MG / Clavulanate 125 MG [...] ONE TABLET BY MOUTH EVERY MORNING W [facility] FOOD SOLD: 02/12/2021 [facility] 240 mg 01/10/2021 12:00:00 AM EDT tablet extended release 30 TAKE ONE TABLET BY MOUTH EVERY MORNING WITH FOOD TAKE ONE TABLET BY MOUTH EVERY MORNING W [facility] FOOD SOLD: 06/16/2021 [facility] 40 mg 01/10/2021 12:00:00 AM EDT tablet 30 TAKE ONE TABLET BY MOUTH EVERY DAY TAKE ONE TABLET BY MOUTH EVERY DAY SOLD: 01/14/2021 [facility] 240 mg 01/10/2021 12:00:00 AM EDT tablet extended release 30 TAKE ONE TABLET BY MOUTH EVERY MORNING WITH FOOD TAKE ONE TABLET BY MOUTH EVERY MORNING W [facility] FOOD SOLD: 03/15/2021 [facility] 240 mg 01/10/2021 12:00:00 AM EDT tablet extended release 30 TAKE ONE TABLET BY MOUTH EVERY MORNING WITH FOOD TAKE ONE TABLET BY MOUTH EVERY MORNING W [facility] FOOD SOLD: 04/15/2021 [facility] 240 mg 01/10/2021 12:00:00 AM EDT tablet extended release 30 TAKE ONE TABLET BY MOUTH EVERY MORNING WITH FOOD TAKE ONE TABLET BY MOUTH EVERY MORNING W [facility] FOOD SOLD: 01/14/2021 [facility] 240 mg 01/10/2021 12:00:00 AM EDT tablet extended release 30 TAKE ONE TABLET BY MOUTH EVERY MORNING WITH FOOD TAKE ONE TABLET BY MOUTH EVERY MORNING W [facility] FOOD SOLD: 05/16/2021 [facility] [...] Doxycycline Monohydrate 100 MG Oral Capsule Doxycycline [place] hydrate 10/06/2020 12:00:00 AM EST ORAL active M EDENT ([facility]) 5 mg 09/15/2020 12:00:00 AM EST tablet [...] Doxycycline Monohydrate 100 MG Oral Capsule Doxycycline [place] hydrate 09/15/2020 12:00:00 AM EST ORAL completed MEDENT ([facility]) 100 mg 09/15/2020 12:00:00 AM EST capsule [...] BY MOUTH TWICE A DAY SOLD: 11/17/2020 [facility] 1,250 mcg (50,000 unit) 09/15/2020 12:00:00 [...] type / Coverage type Policy ID Covered alliance party ID Covered alliance party's relationship to agosto Policy [place] Plan Information [place] 305/805 [id number] [place] 305/805 [id number] [place] 305/805 [id number] BC BS [place] [id number] HU2 [id number] BS [place] Medigap Part B [id number] Self BS [place] Medigap Part B [id number] Family Dependent EXCELLUS BCBS [id number] [place] [id number] EXCELLUS H [id number] Self [id number] MEDICARE A [id number] Self [id number] BS [place] Commercial [id number] Self BS Fed Plan Medigap Part B [id number] Family Dependent Blue Federal Employee Program J [id number] SPOUSE [id number] Blue Cross Blue Shield P [id number] SELF [id number] Blue Cross Blue Shield P [id number] SELF [id number] EXCELLUS C [id number] Spouse [id number] EXCELLUS BCBS [id number] Spo [id number] [place] SECONDARY [id number] 1 [id number] 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 [id number] EXCELLUS BC-BS PPO 306 [id number] SP [id number] Blue Cross Blue Shield P [id number] SELF [id number] [employer] [place] OUT OF STATE ALL [id number] EXCELLUS BCBS [id number] Mona UFU [id number] ANSI-Commercial [id number] ANSI-Medicare Part B [id number] ANSI-Commercial [id number] ANSI-Commercial [id number] ANSI-Medicare Part B [id number] ANSI-Commercial [id number] ANSI-Commercial [id number] ANSI-Commercial [id number] ANSI-Medicare Part B [id number] ANSI-Commercial [id number] ANSI-Commercial [id number] ANSI-Medicare Part B [id number] ANSI-Commercial [id number] ANSI-Commercial [id number] ANSI-Medicare Part B [id number] ANSI-Commercial [id number] ANSI-Commercial [id number] ANSI-Medicare Part B [id number] ANSI-Commercial [id number] ANSI-Commercial [id number] ANSI-Medicare Part B [id number] ANSI-Commercial [id number] ANSI-Medicare Part B [id number] ANSI-Commercial [id number] ANSI-Commercial [id number] ANSI-Medicare Part B [id number] ANSI-Commercial [id number] ANSI-Commercial [id number] [facility] Part B [id number] ANSI-Commercial [id number] ANSI-Commercial [id number] ANSI-Commercial [id number] ANSI-Commercial [id number] ANSI-Medicare Part B [id number] ANSI-Commercial [id number] ANSI-Medicare Part B [id number] ANSI-Commercial [id number] ANSI-Medicare Part B [id number]-993y-2v98-f3s2-9y99e96ow939 84m4662p-853d-9t83-o1r8-9r68j34vw126 ANSI-Commercial nfn08a78-5d44-49kh-1jpo-9626r71y6820 njv61n83-2x17-87ou-8wcd-6502j13y5629 ANSI-Commercial 4r013gen-8k8n-05xr-er89-92e114q0180s 5m274ttb-3v0z-60zj-rj34-46o089n4397b [facility]-Medicare Part B e62vn803-7375-26sd-w065-4fa2zabqd206 h28fb919-0688-42ep-m514-9cq5amufl731 ANSI-Commercial 250x0c9q-7i4f-2952-ni0e-53olza2m8mb4 598f6d4m-7l5v-5130-hr0t-90rinz8s9ow1 ANSI-Commercial vey0tss5-2gp8-839a-8row-752us5388fs7 wvy3hlw3-2ug8-660i-5ads-741xk9958qn2 ANSI-Commercial 82l70ngv-9som-0f62-4nr8-43n3730q0j97 79g02ban-6taq-8b99-7dv4-39r6176f4g45 ANSI-Commercial yg9p1z53-78bo-6nzg-r9c2-kqbsuv92cn87 ej8a6x92-62sj-4grg-t4p4-licnsi15ci01 ANSI-Medicare Part B 97a1bi3j-k49m-97wy-95a5-gdbbz09l38rt 49i6dz6b-f44o-54sr-06d3-muben97b22sj ANSI-Commercial 8z64v8c7-513j-432u-8896-74fr14ap40f4 6y06k5u1-620x-323n-3600-37iu50wj67j9 ANSI-Medicare Part B omv9783l-973z-9pf9-hbi0-fo24o5hj6e33 vvr9391e-304u-7re6-cko2-aj26k3pg4z95 ANSI-Commercial 53jyrrqz-5954-5n9i5r4e-kw4d-s190n1105a6j 97fcwxub-9180-0d9q6o3c-dm0b-q446t0249w4s ANSI-Commercial x36j6s9r-5987-3425-j426-m1t451021785 m01l5f6f-6799-7978-r352-l2v023441407 ANSI-Commercial 76427e0l-1989-6682-qe00-c3v89620lg81 86515r6g-3057-0349-az50-l7o07306of82 ANSI-Medicare Part B 3969997n-465c-92q1-89l0-88pk88o66187 8748395a-800c-32h3-31c1-07mf10i74547 ANSI-Commercial 92q4t844-9064-7y00-qu9r-5dc4436u039h 49u7g690-9733-6e45-bd9g-9lw5268k915w ANSI-Medicare Part B 3hf09y73-na41-8xns-90sk-q3q999g386ad 6zs72d41-et66-1awc-67zn-a4v241d915gx ANSI-Commercial 328x5989-wb8x-205x-g664-823s53130b58 894d9388-ub7a-380z-o822-451d97516u23 ANSI-Commercial 1h403727-y036-6c47-601x-ao7na687xsq8 4z135797-y560-4n60-567a-xj6fa602oqt3 ANSI-Commercial 6wo35836-9522-9782-153s-36660mf98jt3 7hk52706-0860-9168-593z-44808ek38bn1 ANSI-Medicare Part B sl0909n3-94z4-76f3-3u5a-15o94415185i ur9151p6-39g3-62q7-0v5v-72f40798229v ANSI-Commercial 06ksu395-6o89-3197-qx99-qcr7cs455rne 16zxr332-5z12-6545-lp25-unu8dr518wwz ANSI-Commercial u035135p-61y2-19i4-sp31-a3429f71w373 a577279m-40n5-61b1-ju78-w6754p69p468 ANSI-Medicare Part B 5808w541-x9b1-15al-nqot-695c1wn56573 9763z198-g9o4-00gy-ttug-159a9cm92039 ANSI-Medicare Part B 65rz7329-9v69-082e-1404-t48eyu4m5396 61ey6434-1s37-241r-9048-b53fka6p6854 ANSI-Commercial 58517140-90zv-094c-p79m-e19s26qio23t 66777993-37xn-237s-k71k-d06x08zmg97g ANSI-Commercial r6t8uy6g-6844-8x48-3224-900723xh5397 p0s4is2b-5956-7h86-5084-906734kp6213 ANSI-Commercial y437agl8-n72a-7d7u-3rty-089l62866l5g j114fqg8-r30a-9j4f-4otf-387p05266l6o ANSI-Medicare Part B 4z8cy5no-39qg-9337-143o-8901u5t09526 0n5jj9qf-36ej-0308-390v-9252m1o65683 ANSI-Commercial n425387l-798w-4lw2-r24r-121l3q0974a8 a319813t-957f-8go6-t85j-681d1k2451c7 ANSI-Commercial 1ijdq5tg-4317-7385-1108-v0n853f1tw17 5xitr2nv-8945-7468-7961-s3s527j7au73 ANSI-Commercial 93024730-1264-76gj-900v-vl6513j996o6 35120735-3809-12rp-347h-wj7815p589e9 ANSI-Medicare Part B c0c47ze2-354v-013x-ye4z-74143362x49i c9e07ar8-673z-509s-zg7r-03861936v67s ANSI-Commercial 1cz6kp94-n84s-96mi-i130-10v9w1m9s39y 3mm8po74-z11n-20eu-l985-91x2k2y0x60m ANSI-Medicare Part B rx297hw2-7z57-4o0x-fq26-4o8s8483g5gt zz910ot8-1j38-5t3c-rp36-0i7l5971m0px ANSI-Commercial 3rno65z2-574f-5912-4cwf-fr9530cd5w53 1vpw98e7-649a-3449-0jcb-ov8473pf5c64 ANSI-Medicare Part B 4015vqak-90q5-737733z3-9198-y1k3-y723c295629b 8762csdf-47d6-480322d5-1036-q0w1-u658n627421k ANSI-Commercial t8b30281-8407-66d3-746y-489030kc604o o0g73178-2768-28d2-615e-754166su288b ANSI-Commercial d89g6053-m8f7-5x1s-7528-t55v13puj4i6 q50q4768-h6z9-8r4i-2461-k58x85xoc5q5 ANSI-Medicare Part B 370x6a74-f15l-112a-67k1-3r68fnfks59u 171m8i04-q55b-161t-13w7-8w04ldtsp65x ANSI-Commercial yh9p6493-59pf-9763-jg03-wt29h434h49g sp2m7452-02nn-7360-lo98-de96a516n97t ANSI-Commercial 9t8864dw-9cuz-8cfy-j483-3o8y91xl209a 4o5112fu-1vwy-8eys-a031-7u0f59kg681q ANSI-Medicare Part B 1x115yu2-79ew-26j7-je8x-64x1n8i89084 0d891po9-28kr-48w9-aa7x-07t3w7t54002 ANSI-Commercial u4342692-go62-1y60-f95s-281l47948243 l3648238-jm61-6j57-h78p-089k13170072 ANSI-Commercial sc2k0ht3-l6ei-9240-7284-jc18340p7733 lj2z4ve7-o7pq-3147-5804-ml98181l7234 ANSI-Commercial yzvp61tm-gi8r-6830-gv26-d2v592w3345b cguz64yk-aq7m-3442-jk76-v2w406w4690a ANSI-Medicare Part B 4668o63d-mw61-5174-8s27-e2278379159e 5679n93c-nh70-7836-6c91-g0110114106y ANSI-Commercial 73w08y57-7nu5-9151-t344-k0og3081k63c 58t92k66-7ku1-8498-p571-k8mf7255k72l ANSI-Medicare Part B d28e82rh-69vu-45q9-9vhp-b25u65ws1w26 o00p37wv-49vf-56j2-3cro-q88s33at3y62 ANSI-Commercial y8187i76-4vwd-843n-z582-9552zpmd7y43 o9505h46-4dzg-271p-c325-9110nabt2r24 ANSI-Commercial j6792g59-lr44-8a03-5s34-w971n431x9u2 k7153q43-oj52-9u49-9d18-e608l747l6s3 ANSI-Medicare Part B 831c22f6-5w49-1487-h740-41493h257j80 773h13a8-1w10-2064-h923-49230a141d57 ANSI-Commercial 9t969wn4-6200-4674-68l6-927u19921735 9u964ob2-2916-0555-17r0-552a68785134 ANSI-Commercial v61g3z4u-go26-46j0-v772-rc33617g5669 a55b2x5l-ox93-01e2-r811-jm65302z5959 ANSI-Medicare Part B w5uz52f1-68g0-6x16-a8p7-7e24svpxc7d3 b8iu29k8-61b8-9d73-l8s2-0c97ttlcc4e8 ANSI-Commercial j21yx977-10i7-0fqt-1no4-692100919595 x10pm655-46q7-6dpa-2hq3-058119481070 ANSI-Commercial ll4qe27w-3t34-3m1r-0370-5211s786984u wg5db09v-2o35-7o3c-1359-4535p241005s ANSI-Medicare Part B ey1rr155-kubk-00m5-h777-56k7o8199r28 mc0sp704-jfwa-91l0-t315-68m9f4437a59 ANSI-Commercial m943f87g-2u78-525a-d87w-tybk832j1389 u484m26c-6f50-447k-j26g-wakh585f3411 ANSI-Commercial ckkf6780-a68i-3iqv-599v-n6450t46q4an istv5656-k52s-8vmh-683l-m9239c89i4vg ANSI-Medicare Part B 6kn54y65-9fr6-51q5-z000-423ca38u4748 0jk91m96-2ap0-33m1-p452-135hp08x4455 ANSI-Commercial 5yi6w0s1-x652-9928-6551-35ftkf124l42 4uv8j1x3-q254-0856-7256-67zyqp868k29 ANSI-Commercial 4525hd66-f272-85ke-d29l-a2ka7znnc33r 5211uu24-b938-24yu-f78p-s1xd1oidh04e ANSI-Medicare Part B s0lp7379-8lk9-11ap-mu8u-762ncnr5gt55 y8np5969-4lb9-54jz-vh0z-842nmdz6pi34 ANSI-Commercial 458035n1-sq81-1158-sa15-1e7013tb81d3 245361l8-ee74-6610-kv66-5v2595th06f3 ANSI-Commercial 5184uw5v-90zn-0y99-v613-8nt64q32e5m4 1741rk0f-55sk-8i73-v047-0yd74d43i2d9 ANSI-Medicare Part B y74mu3d7-526f-6nf1-l88b-51mh93994u9t m14kg3n0-214n-3du3-x43h-13ni14206y9e ANSI-Commercial 266pxpiv-0047-665c-bfa1-0f8732001103 965culbj-8582-542v-bfa1-3v1153102216 ANSI-Commercial d8w75y40-zqtw-87n4-9a2d-8r6425332x98 t2w15g40-tadv-29e5-0p8i-4j5991035k96 ANSI-Medicare Part B 513846gg-j666-101o-c3fw-13vx148yj7qo 675304fa-o295-355s-n9lx-20mh025bf8sx ANSI-Commercial 4016l25q-3d2i-364a-2sl2-1ox276n955c3 3944o53f-4s4x-034m-5es2-2xy703f638b8 ANSI-Commercial 2mw25cvq-0q5y-434k-h67a-4zfk80077t56 7ow89cgd-1p8n-193i-v79a-5pey48280y41 ANSI-Commercial w62s0505-62x5-3d7u-md06-096e7lr4l1a1 n93i8434-80d2-0s4n-uu92-621u7xz6a3p6 ANSI-Commercial 2l48a4nz-ghm0-4567-c299-csx0m59525u8 8b10c6rb-zhi9-8766-u223-twg0e35620a3 ANSI-Medicare Part B 5131w5x7-4g32-7fb1-p3v9-9x93cb2i51m0 4695a8c6-3n60-8mb5-z6y0-0d10bh1w35h8 ANSI-Medicare Part B w71t31p5-gnu0-49gq-028w-as05if0a484x n70r97r4-zyz4-45kq-344g-mw11hw4w167p ANSI-Commercial 383720q0-319f-5483-z751-9z0nb2044bh7 769260g0-075z-7335-d820-8u4ed9480hf8 ANSI-Commercial 1654e0y2-96q3-4832-96ff-30t7j4k3mp8t 0566p0v1-76o5-1509-98ax-36e9d8u8zs7b [facility] Part B [id number] 2.16.840.1.835493.3.227.99.1767.42995.0 Family Dependent [id number] [employer] [id number] .16.840.1.995691.3.227.99. 1767.51396.0 [facility] [id number] ANSI-Medicare Part B 134m0d2o-7xyq-11v1-bd4m-t49viu0i27w5 979t6i0w-9bgq-52e5-bh2w-e42cyy5b50n4 ANSI-Commercial 64zw9046-d836-7en9-ma32-x5495svfb748 28lj5437-m352-2fe0-ma43-n0855ygbf200 ANSI-Commercial 395jb771-3148-173g-7jn1-7uj502696576 063nm932-0333-034c-8dm6-1mb020093486 ANSI-Medicare Part B 5t9hqi4a-n5u2-63mn-q8d6-05t83plh9192 3i5hym0j-m0o7-51do-o5q1-54s91xqn1197 ANSI-Commercial bc6y2ecb-5x36-9917-3z7o-ytyq946l3m8z lj2d4tbz-7j73-5801-2h2d-svaf448k3z3t ANSI-Commercial a6g6p486-437s-8eo9-n34n-3l9117w4b3rc g9t3z625-849w-0mp0-v91t-0o7769c5w0db ANSI-Commercial hekwk907-9zg8-4xbr-2jh2-802c7zn38vou -5uo1-5msv-3hn5-817j1jy71ygt ANSI-Commercial we0p379l-092w-3642-vg9q-411ap63007f9 kv6a557t-060f-1256-de7l-372os20139f8 ANSI-Medicare Part B 3b74081o-q60a-452j-74v4-92184604u226 5u24835d-o04r-944o-46v6-23784648f243 ANSI-Commercial 4e8z5988-0i9q-9244-1270-1j2z9j5286h8 9p0t9923-0l8v-4688-3207-1c2b5s0962y2 ANSI-Commercial d46dkht4-p5v1-8d74-wo2h-6h0p86c96xi4 i67galx0-y2e9-0b77-qo1j-7y0f40v10nq2 ANSI-Medicare Part B y9y4kw31-d86u-8337-x92p-k65m4ytau17s d7v4qk91-s60o-4368-r83k-m31m6pdbt64g ANSI-Commercial 209u836l-4043-4pq2-00l5-469o91vd6701 849t621i-3077-7to8-31n9-587y41wl8321 ANSI-Medicare Part B 42c33f13-65c3-8pgn-m436-zdw27036vf7w 59g53f19-18i5-8kou-n382-mbp26207kp2n ANSI-Commercial 00q44083-1ui2-1b77-w315-07ufbur123ri 89c39822-0pf5-2z76-g957-60ganxb303uk ANSI-Commercial 7j905qvu-52fx-7911-674l-y534l09013m5 8t882tri-82lx-9284-239s-i623p77030x4 ANSI-Medicare Part B 6l667m25-24ut-85q1-g028-0t87dcntdk73 4l262i39-80of-15f1-u893-9a37cgvewm39 ANSI-Commercial 5r325247-v044-443e-5749-x0572q7d05d6 5s590832-y153-013p-1262-v3763e7f84t0 ANSI-Medicare Part B 49k178md-3624-6780-r696-d0rf6e5i8894 78z622po-4235-3562-w380-s0ml7a9h6077 ANSI-Commercial 3z9975v4-73a4-43mi-17v3-c71tuj461951 8e4851e0-00x3-11ar-09e6-w26rjm209131 ANSI-Commercial 2kta3000-ts3w-7666-nk5i-ri041uw4k354 7goj7470-op1o-2864-wm2t-ue504xu0m035 ANSI-Medicare Part B k6gyt59a-696p-6wjk-b165-7a35m72rn58e h3xor39d-372p-4pqk-i873-8z93s81ek08o ANSI-Commercial jgj2tkdj-7b6k-3y5j-n3gn-80qx6b9xj7yy gvz7nkju-9y7c-7j7q-b2fo-72md4p4mh1wg ANSI-Commercial 5fkb573i-19c4-6a5q-z978-e649881lh5z4 2wqq928z-45n6-8c0a-w612-r676510xa4f9 ANSI-Commercial 9f4ahi09-74nl-4421-wy0v-189qfpn195kp 9v1ybr89-23ep-1032-ac7l-304binw130jt ANSI-Medicare Part B umk8y485-9a18-0l46-l9l4-a11u4659h76v ohv2d847-1m59-7r18-g6g5-c75g5011c43g ANSI-Commercial 88982767-4405-64q2-5335-x7ntc6285x6f 27691637-1733-16r0-0208-y4svh4438g7m MEDICARE C [id number] S [id number] B ANSI-Commercial 0v803332-17s6-002e-s9z2-48blrkwf6v53 3d404066-96m6-715e-x2j1-71axoyky3m96 ANSI-Commercial 54187100-e9k0-8z86-u7t3-l45u0kcd0q9w 84568867-j1s4-6w72-x7i4-j51k3kbt2w3x ANSI-Medicare Part B 884k0re6-ej2s-810d-m0ng-0t6z547c9678 897v9hb1-go5h-586d-z0da-8u8p657s4995 [employer] Federal Plan [facility] Part B [id number] .1.295926.3.227.99.1767.42974.0 Family Dependent [id number] [employer] [id number] 2..840.1.892336.3.227.99. 1767.50162.0 Self [id number] ANSI-Commercial 318fp8pf-35p9-9a31-383z-z0i1o05518z6 215qb1fs-46f5-6k05-438y-z8x9w29704q3 ANSI-Commercial j19d79y8-6y81-7zc0-k486-3433794kog87 d70q30f3-1p88-5bg8-g762-9137315veg28 ANSI-Medicare Part B ox3d29ys-56l0-69a9-lfe7-4659o11co64a nz2q31fe-70z3-76c5-njz1-1579l31nl13u ANSI-Commercial 1413jm19-037r-0723-j368-36q691328e62 3746zv93-250w-6816-l265-47p147110o39 ANSI-Medicare Part B 35x7n56k-8ap8-0376-9385-6j4sa240noru 87g2x86i-5vs7-5798-6070-9z1vr414rpik ANSI-Commercial 54f7p0y7-92t3-631k-4xz3-m90791505k2q 37r5r2f2-71n8-873k-8me9-i90611623f6k ANSI-Medicare Part B u5l48u9x-whlk-3g74-df6g-qz42x202a3f9 a3u36c6e-mrrw-7m61-py5i-ct35r103a9h2 ANSI-Commercial c5421l89-3194-25s4-o101-ljpo3z9i38e7 e6585z69-3606-31s0-c132-soqy2b8r41l2 ANSI-Commercial j0y60w9e-4rv2-566j-2f59-4083f321fw66 t4l50f7u-5rv8-877x-0l65-0991b603bq90 ANSI-Commercial 3312317w-8jee-97y0-z7vq-l322j75874d6 5563960n-4ypb-34s3-d2op-p988i97468p9 ANSI-Commercial 059177zl-9209-92g5-qc84-ns4k2psc1qn6 657006qi-6762-08u5-nk91-jc7k4kie9ns6 ANSI-Medicare Part B zmn28ju6-k35d-221v-06q8-1wg1ze0ano0h dsr93xd9-i15s-196l-74j7-8vv0no2phu9q ANSI-Commercial wmcb4p14-1f3o-2995-952k-55tv0gs7c195 zupn4f49-6e3o-3024-106s-15kd7ma2e217 ANSI-Commercial dc19e028-7g68-3so7-6z20-8b85aox816a3 sq87t815-4x43-1lb2-3x66-2i74npj438e8 ANSI-Medicare Part B x845838t-crpj-2ry6-3yo2-804b0g792e71 x859222i-eqmr-7qu5-8ee4-821f5a069r61 ANSI-Commercial 8g2th950-y273-5912-j085-z1run8099812 2v2mx299-b136-9908-f351-l6vem1705548 ANSI-Medicare Part B p5v13538-3292-3799-9596-h17n2b79vw2v r8k35368-6354-7573-7081-l88p8b58ni0i ANSI-Commercial j7h293f0-r242-7a11-611r-098bk478v1k3 o0e146s2-j897-6b07-925i-977nz824u6f4 ANSI-Medicare Part B 00dzf3vh-2k09-8xv6-02j9-g989q3z3922c 12wmm5gu-2s19-8hv1-38c4-s177z0v8506l ANSI-Commercial 33gvj7b3-47v7-3113-h0h1-46211927e52c 28iiw8y2-49w5-8668-p5k2-21212847l33q ANSI-Commercial t44153i2-0496-19l2-s8si-370l33y95hti r61413v5-8314-04j1-q2ro-948h18g68odo ANSI-Medicare Part B 52xdchq6-qs38-562v-2i2r-8q5j7q5p91f7 32hhuuk9-ok14-081a-9v0r-8m3z1r2d83z0 ANSI-Commercial rv34lh9w-8918-12z7-ni9q-623h821330zx gg23id0j-9936-71u7-vj7y-945n159418sl ANSI-Commercial 6o4f4f74-45g4-6x39-m71o-6v7z7zdxqtav 6z6y4p15-71e1-7n89-p53y-4c1r0ouzyhpg ANSI-Commercial 56140069-l4r1-1hfw-0792-911rto910084 40693898-s0b3-4rzg-6837-542zuo115140 [facility] g593t610-h6d6-4fe2-wwb4-f7z86v452wv8 u142x977-i6f3-2pn6-djv6-q1i15k072jd9 ANSI-Commercial 1xte10bk-rvm1-7oo6-010d-3844sz747fdn 8gad40mi-jmg7-8fk5-524k-0554bx593psi ANSI-Commercial 50y83495-xux1-220x-0h53-78e9j59k5600 16j46186-cjv7-640t-8r77-41u3f41g8944 ANSI-Medicare Part B 9u4i23nz-408e-1x3i-t7u2-b92k1k631552 2r8r19wb-442o-5h3b-a7k6-p42q2k920403 ANSI-Commercial fkqv55mb-ya97-8d9l-va2o-615nb822z4x8 zugn94cd-qp06-1q1d-ka0v-531pl877o1b3 ANSI-Commercial vek93o82-3i29-4641-d39c-k1lomy4r1785 xvn16e66-4h43-7975-x66n-u1iykj6z8454 ANSI-Commercial 1xf28914-zt6x-1475-7332-064f0e60hw54 7dv11838-zs0t-9837-9965-633q8d66qp90 ANSI-Medicare Part B xb557020-fz5g-8623-q679-o075c107q5w2 cw198817-ht7d-1099-x526-g087c991i8u5 ANSI-Commercial r59yy934-8xe6-8a00-q40m-63d909u0m5s3 d70oz823-4gg8-5m53-d47k-23p536d0n5q8 ANSI-Commercial c279p275-f8u3-8f02-kt34-169j43p13863 n195b320-l9t7-9a34-fm73-999p23g96960 ANSI-Medicare Part B f050k02t-44w9-80k3-9090-i9p2prqwc155 d692u49n-12u6-92g9-3713-u7y5lukbz766 ANSI-Commercial i0593xt8-791k-2xb9-69b3-yotyrbmza2r5 h7924xq6-978g-4gp6-81z3-qcnmxwaak5m2 ANSI-Commercial m98r9p29-130y-3hbb-0q0n-26m8k8070354 d40p3j61-281u-9zuj-6a6z-71y7d9152294 ANSI-Medicare Part B 49kzl59s-q6y8-0325-45f2-l176857yy7xg 94yph07g-i2q5-5756-04k0-e208726ho8kk ANSI-Commercial 18m735jr-6b98-4da5-680n-3vg974ccup21 76o814tl-4e25-4uh7-346n-4oy280rxtl76 ANSI-Medicare Part B v0456105-1w8e-1520-4529-vcyj1p36y0o9 o1262803-8w9z-0288-0821-xvbk0p99s5a0 ANSI-Commercial mn490dx2-63r8-41b3-cf5z-6319a23p1766 pt169ck1-11n5-74w0-jn0i-8788s56d5882 ANSI-Commercial 081p1901-o082-4p47-d53g-sj718ng6z6by 679e5706-l272-9f71-j45c-pa716tf3u5hs ANSI-Medicare Part B 6n887788-3829-5343-80d5-k8bn1ga9i680 8n713956-4125-3871-77v6-a8an9im9v617 ANSI-Commercial 79mxv550-9r8n-84vn-4198-0972g9965h4l 50hfp253-1y6d-79ap-6226-0734a4855h1f ANSI-Commercial 3jx44b2f-8fc2-8z71-zpf6-3oq6ez792dk3 6lm97x6o-9zw6-5p73-zgm8-2lq1sp438bj8 ANSI-Medicare Part B 65wd16w9-0do6-98rb-f61i-b6f51t863y65 28cw16u6-7cw6-91nz-q12i-y1b51a388u86 ANSI-Commercial 235474k4-1002-78g5-j37d-12808t0685j4 534080g0-4351-04f6-r63h-85226y5444f6 ANSI-Medicare Part B 5936m0z7-6273-9qj3-5sd4-47tmm6z7040a 9544w0z3-0227-6mr1-0qj4-22bys2y5435i ANSI-Commercial 5guu7o3c-wtj6-7151-4q0x-t1s481f75m90 2nnr0b7c-ird7-5557-3z0c-i8q583a09b19 ANSI-Commercial 146fi8pa-041c-27tu-67el-3579045fif58 516oh0sx-209s-05cm-75fj-2217326mtu16 ANSI-Commercial 334n8d89-7bwr-5117-1t9j-90069078o22h 304i8k27-4aph-1123-7n3r-22140390l90d ANSI-Commercial pgon4867-0aa2-1i99-46c7-jm4yb8mcl83a srnr2821-9ds7-4o71-02v1-hn4li5rlv61v ANSI-Medicare Part B to07fg13-3j30-9xy2-8k5x-0u21e531yf14 fc89vy25-2t94-6ge4-5i1w-6s58a956gs87 ANSI-Commercial 61327q96-871d-0f59-144m-55s0e0va20dn 74954f47-236k-1p48-602t-31g4t2hh78nm ANSI-Commercial mkkd3go3-0169-7zx8-dmi9-dj0fq69a8q1s zkyd3mi1-8959-9ww8-adb2-pj5gp52i2p7g ANSI-Medicare Part B 5591p7oz-3075-5016-y1nu-05vdr7ni32q7 8163w5kh-8794-5418-x8kb-56mao8xx29e3 ANSI-Commercial lsj170pf-q8mp-8yvm-n325-7696hyja803k wih397yl-c6nz-4bfl-n654-8647tvbc330m ANSI-Medicare Part B 20q49n58-5jp2-9w35-t60k-xc2k8997x92e 38d94f87-0tu1-3u82-l77q-iz6g6731k32t ANSI-Commercial 72dq45pm-du69-2r7r-nd82-f9t4pr9a086t 56dk51mq-cz64-2j1w-bz81-q4i9cv2x642a ANSI-Commercial ry4s93pr-394q-6k08-l253-gj92k8e813u4 sm9w79as-363a-3m21-t713-pp96c1x906d6 ANSI-Medicare Part B [id number]-y211-72k1-oe04-2ca2h73658jw ANSI-Commercial k54lu9p4-[id number]-xyye-999g9o69f5i3 b33jk8t0-s780-0429-xale-940p9s62w1z5 ANSI-Commercial [id number]-[id number] [id number]-[id number] ANSI-Medicare Part B [id number]-27ll-x1mz-[id number] ANSI-Commercial xw109p04-t33f-8r61-oe64-nb8bx72nw3mc ic550y36-m01g-6k10-sf49-gm8la27bs2gr ANSI-Medicare Part B [id number] ANSI-Commercial 1ld29h6g-a5py-5t56-u14s-[id number] 6kr22k7k-n0dp-6i68-f17z-s663a5180g61 ANSI-Commercial [id number]-tr85-0lt5-4x9e-p758kxwt8xc4 497576f5-ll75-8xe8-4d8l-y543vkqv8qr6 ANSI-Commercial 35skn9y5-u990-28g7-3wxs-5b86fb8470o1 93ctr8r7-w841-15o8-6mya-0k17tk3589g3 ANSI-Medicare Part B [id number]-[id number] ANSI-Commercial zo4kh50q-1gl4-0t6q-jow7-6fhiy19k8o0s kh1jj55c-1vg8-7k9u-uai8-0lsyz41o1u4t [facility] [id number] WI2 [id number] MEDICARE [id number] B BCBS [facility] Plan [facility] Part B [id number] Family Dependent [id number] BCBS/[employer] [id number] Self [id number] BCBS [facility] Plan [facility] Part B [id number] Family Dependent [id number] BCBS/[employer] [id number] Self [id number] BCBS [facility] Plan [facility] Part B [id number] Family Dependent [id number] BCBS/[employer] [id number] Self [id number] BC BS [place] [facility] B [id number] O [id number] BCBS/[employer] Commercial [id number] Self BCBS [facility] Plan [facility] Part B [id number] Family Dependent [employer] BCBS FEDERAL [id number] HU2 [id number] [employer] BCBS FEDERAL [id number] HU2 [id number] BCBS [place] PPO 302/307 [id number] SP [id number] MEDICARE [id number] SP [id number] T BS/W/Id#Prefix/W ALL #'S Commercial [id number] Self BC/BS ([facility]) [facility] Part B [id number] Family Dependent BS Of [place] Commercial [id number] Self BC BS [place] FEDERAL [id number] WI2 [id number] BC BS [place] FED[place]AL [id number] HU2 [id number] BC BS [place] [id number] HU2 [id number] 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 [id number] MEDICARE PART A -O/P [id number] 18 [id number] BS [place] FEDERAL B [id number] S [id number] MEDICARE [id number] SP [id number] MEDICARE [id number] SP [id number] [place] BC-BS PPO 306 [id number] SP [id number] MEDICARE C [id number] S [id number] [place] BC-BS PPO 306 [id number] SP [id number] [place] BCBS B [id number] S [id number] BCBS [place] PPO 302/307 [id number] SP [id number] [facility] FEDERAL EMPLOYEE PROGRAM [id number] BS [place] FEDERAL B [id number] S [id number] BCBS [place] PPO 302/307 [id number] SP [id number] MEDICARE [id number] SP [id number] B ANSI-Commercial [id number] ANSI-Commercial [id number]-[id number] ANSI-Medicare Part B [id number] ANSI-Commercial [id number] ANSI-Medicare Part B [id number] ANSI-Commercial 80nssv04-j8zq-[id number]-[id number]-[id number] ANSI-Commercial [id number] ANSI-Medicare Part B [id number] Problems, Conditions, and Diagnoses Code Display Name Description Problem Type Effective Dates Data Source(s) Z68.41 Body mass index (BMI) 40.0-44.9, adult B junaid mass index (BMI)40.0-44.9, adult Diagnosis 04/20/2021 01:09:03 PM EDT [facility] E66.01 Morbid (severe) obesity due to excess ca lories Morbid (severe) obesity due to excess ca Diagnosis 04/20/2021 01:09:03 PM EDT [facility] Z79.01 intermediate (current) use of anticoagulant s intermediate (current) use of anticoagulant Diagnosis 04/20/2021 01:09:03 PM EDT [facility] I10 Essential (primary) hypertension Essential (primary) h ypertension Diagnosis 04/20/2021 01:09:03 PM EDT [facility] I48.92 Unspecified atrial flutter Unspecified atrial flutter Diagnosis 04/20/2021 01:09:03 PM EDT [facility] E06153 Dry eye syndrome of bilateral lacrimal g lands Dry eye syndrome of bilateral lacrimal glands Diagnosis 12/07/2020 09:30:00 AM EST [facility] H24352 Unspecified ptosis of bilateral eyelids Unspecified ptosis of bilateral eyelids Diagnosis 12/07/2020 09:30:00 AM [facility] W96714 Keratoconjunctivitis sicca, not specifie d as Sjogren's, bilateral Keratoconjunctivitis sicca, not specified as Sjogren's, bilateral Diagnosis 12/07/2020 09:30:00 AM [facility] H2511 Age-related nuclear cataract, right eye Age-related nuclear cataract, right eye Diagnosis 12/07/2020 09:30:00 AM [facility] H2512 Age-related nuclear cataract, left eye A ge-related nuclear cataract, left eye Diagnosis 11/16/2020 07:30:00 AM [facility] X14154 Encounter for other preprocedural examin ation Encounter for other preprocedural examination Diagnosis 11/14/2020 12:00:00 PM [facility] R06.83 Snoring Snoring Diagnosis 10/27/2020 01:31:06 PM [facility] R53.83 Other fatigue Other fatigue Diagnosis 10/27/2020 01:30:[address] 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, lumbar region Problem 07/18/2020 12:00:00 AM EDT eCW1 ([facility]) Surgeries/Procedures Procedure Description Date Indications Data Source(s) Pain Procedure Log 02/06/2021 12:00:00 AM EDT eCW1 ([facility]) Unclassified drugs 01/23/2021 12:00:00 AM EDT eCW1 ([facility]) Completion of procedural visit when meets criteria 01/23/2021 12:00:00 AM EDT eCW1 ([facility]) Pain Procedure Log 09/19/2020 12:00:00 AM EST eCW1 ([facility]) Unclassified drugs 09/05/2020 12:00:00 AM EST eCW1 ([facility]) Results ID Date Data Source [id number] 06/08/2021 07:30:56 PM EDT [facility] PCName: Oscar NguyễnDOB: 1950Provider: Dick [...] 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 Results/Data MRIX-rays of the right knee [...] rce(s) Supporting Document(s) ID Date Data Source [id number] 02/17/2021 04:20:00 PM EDT [facility] Name Value Range Interpretation Code Description Data Sandra rce(s) Supporting Document(s) SARS-CoV-2 (COVID-19) RNA [Presence] in Respiratory specimen by ARVIN with probe detection Not Detected [facility] This lab was ordered by [facility] and reported by [facility]. ID Date Data Source [id number] 02/17/2021 03:17:00 PM EDT [facility] Name Value Range Interpretation Code Description Data Sandra rce(s) Supporting Document(s) SARS COVID ANTIGEN NEGATIVE [facility] This lab was ordered by [facility] hi nd reported by [facility]. ID Date Data Source [id number] 02/10/2021 07:45:17 AM EDT [facility] PCName: Oscar NguyễnDOB: 1950Provider: Sultana [...] rce(s) Supporting Document(s) ID Date Data Source [id number] 01/18/2021 10:45:00 AM EDT [facility] Name Value Range Interpretation Code Description Data Sandra rce(s) Supporting Document(s) SARS-CoV-2 (COVID-19) RNA [Presence] in Respiratory specimen by ARVIN with probe detection Not Detected [facility] This lab was ordered by [facility] and reported by [facility]. ID Date Data Source [id number] 12/14/2020 03:45:00 [place] [address] OPERATIVE SUMMARYNAME: DELMA MOORE DATE OF : 1950TTENDING PHYS: Elva Becerra MD DATE: 12/07/20 MR#: [id number] OF PROCEDURE: 12/07/20PREOPERATIVE DIAGNOSIS: Cataract, right eye.POSTOPERATIVE [...] bag. Phacoemulsification was then done in a akcnlg-yrf-kkhakqg method within thecapsular bag. Excess cortical material [...] rce(s) Supporting Document(s) ID Date Data Source [id number] 12/02/2020 01:39:00 PM EST [facility] Name Value Range Interpretation Code Description Data Sandra rce(s) Supporting Document(s) SARS-CoV-2 (COVID-19) Negative [facility] This lab was ordered by [facility] and reported by [facility]. ID Date Data Source [id number] 11/18/2020 07:08:00 [place] [address] OPERATIVE SUMMARYNAME: DELMA MOORE DATE OF : 8ATTENDING PHYS: Elva Becerra MD DATE: 11/16/20 MR#: [id number] OF PROCEDURE: 11/16/2020REOPERATIVE DIAGNOSIS: Cataract, left eye.POSTOPERATIVE [...] bag. Phacoemulsification was then done in a tguyln-shk-icywfmh method within the capsular bag. Excess cortical [...] instructions were given out in detail. [address] [place] [address] OPERATIVE SUMMARYNAME: DELMA MOORE DATE OF : 1950TTENDING PHYS: Elva Becerra MD DATE: 11/16/20 MR#: [id number]: Elva Becerra MD 11/17/20 16:45DT: SSR 11/18/20 07:07DS: Elva Becerra MD 11/30/20 08:57 2 Name Value Range Interpretation Code Description Data Sandra rce(s) Supporting Document(s) ID Date Data Source [id number] 11/11/2020 12:03:00 PM EST [facility] Name Value Range Interpretation Code Description Data Sandra rce(s) Supporting Document(s) SARS-CoV-2 (COVID-19) Negative [facility] This lab was ordered by [facility] and reported by [facility]. ID Date Data Source [id number] 10/27/2020 02:28:51 PM EST [facility] Name Value Range Interpretation Code Description Data Sandra rce(s) Supporting Document(s) &PDF [facility] [id number]QVlEFWi waW [file] EelE0YDVeXXObp8Fi/tKTz6FO1ynYEz6XKn0/senior applications analyst/FH9XPPBOFdfOLAsQTWD92LmRQLsAJlCuGLDzLwAZ [file] ICAgICAgICAgICAgICAgICAgICAgICAgICAgICAgIC PiNTYvLSDuIHClVBAnTKIiPIQtMHIsHNZiQDEjLGQdCIMoVHKeECElYI7IGDEzWRTtQXIwCHVlSZCqWF AgICAgICAgICAgICAgICAgICAgICAgICAgICAgICAgICAgICAgICAgICAgICAgICAgICAgICAgICAgIC KeFBOyJITnNVYoRQUfHIQeCKOyCOHlKZ1RALErERRo ICAgICAgICAgICAgICAgICAgICAgICAgICAgICAgICAgICAgICAgICAgICAgICAgICAgICAgICAgICAg ZMWhLGNcNMIeZWGbDNArPSBoLUTaJSTqXQTvWKHmFTEnIT2FDLXiFWEcVKMiWQSfPYIuMMBwWSObZWCr ICAgICAgICAgICAgICAgICAgICAgICAgICAgICAgIC PrPPSvJOPpLCZtHGNvFLSkWDCkTFTzURPaFRGyVXFmNANzQTGrDWRlKLPnAC2PBRVjPYEdQWAfHOHfUF AgICAgICAgICAgICAgICAgICAgICAgICAgICAgICAgICAgICAgICAgICAgICAgICAgICAgICAgICAgIC NbUXGqCRXoTPOoGCZtHVDdERWjCBObDDJuVU1EYZXg ICAgICAgICAgICAgICAgICAgICAgICAgICAgICAgICAgICAgICAgICAgICAgICAgICAgICAgICAgICAg CGVkNYKeIIYtDTHqBBAyHQCgIRKoKIGkEFQqTUMtFWQnDFJqDN8OMYXtBRKsTPLiIBLrQPFtYSYsWRPc ICAgICAgICAgICAgICAgICAgICAgICAgICAgICAgIC DzXHOyOQNfGXCxWFUiBDDnZJMmESUgFXXpAKMqHMYxGAQfNPAaIDXfFIKnQPDmTS2VAMVjMMPyGXYyBC AgICAgICAgICAgICAgICAgICAgICAgICAgICAgICAgICAgICAgICAgICAgICAgICAgICAgICAgICAgIC ClLVTiDPVgPBZtUQDbWCQoNUXdGOVpWMXvOSZtQX5Y ICAgICAgICAgICAgICAgICAgICAgICAgICAgICAgICAgICAgICAgICAgICAgICAgICAgICAgICAgICAg FGFzKFQbZYTnIZNhMISzYGInEFUoNZDdBXJkGTPgBGSpCZRjNRNqWU2WXREcEBQyUCBmMWXuROWuCMXd ICAgICAgICAgICAgICAgICAgICAgICAgICAgICAgIC PkRUPoKSLcURGuSFMmSQQdVDQzWGXfFWXmTUTnLTKpKKCnOGQvVGNeHKRdXGEcLBEuDU7FYM70dKHzt1 X8OFXfNQ3sjdk/Ta0NDIudkaBqkSAsNH2WIcMdAW8ooh7XTcTzSG9lsn4JQNdEWwIcG1P8jJZaQBKhQZ ZZXlKlX76hMGvgWd98TFwxCDUcDnTmWWv1Ax7PLsBf L5ddADMkGdH8UWMuKeE2UWYoQdClKTogPB1As4EmaPZqCGc+Vg4MZX6mo9IuOKf9RRZlDZ2rer3JTVlW TmGoQ2T6bMHnZ2F1URlbRn8HCNAzWFTzAnejZIZFJMciEA4OVT0dnfP3HJ2TpWXlQRLiOZAuxLGiWUg4 E93buZGoCMkpEO1MCHL+Jose Elias+Wz5WMHZfZRYfHSGuZo CyQOCNZvWjX52xfQGfWBByHIS4XEWgAi2DFCCzP0WtohHcpDewmjUjKZSpDGFPGW2TKGiyrtOvbZVulU duNR47aUwpRE8HGw2SLzAsCQ1hjs7PrBYdYb5AMZJ9OS0WPOIiQKOxVDGxIHX4JIDaWgKtUEcmFRBwMU BpXEU5TXSxMGCwHT2GJfQiVYYyKzusCGRuTRFlDRSb jq4TDRLjSVE1SKOwBkZmRGUlIXVbFCagETMiADTvLHk5TVWuCQCzXC2ZEkKiXVTtLHJ4CfUcLHWrBKJi fq4PUMCmNOJxXnvsMfXmWTDeYHYlIChlIIBjJQV6BBEjWKDoYVYiLM4EXtNpQKBsDUBkGNvzWZWnWBXt wq2VGYEkKFKfBsB6NtCyOOLhTGBjFMpmAQYqRXT4Qr afYXFlJWLjSA7KEcAlLBKjKPk2JPJwNHXnUPEqox4PSAJpFQExQDIpUyDcZCYaVTEtKIpzTOQxFUE6Zl B8ASJdQVOtOH3OPrYlZRYbOBy9PCVdVEWwGPAaxg8CIZXyKJUqDmW0EOMmEDMbHETlTAhaASVaOQRyUL x7PPTyQPRuGU6XIpWoWYIyTIQqDYawLQJxKSSdcg8R JVNfSPCaKORtIoVxFDLpXHUeSIlaIQJtZNV0DVq9RRNsGGXiCH9APsGzZEZuCCB1KIJdJYBfERNpco8C YVBrDAQpFBxdPJYmHCUaTRBqJJvaCXFmERP3WJq3LOFqMXClJK2VXoNeWRKnQhQ5SMqiQCIxOBXewu5A BNZpJSRsAUC9LxZfUZPdTGFiHWiaYYCbVBV0UNE5GM ItULUeIJ1JDnYmDSCzTaz7HDUyHATeRGSkzq7XZLYeMELoFTZ7UIDdRFVpQIYeOBotXVKwAYTbYof0YE LqRZPbVP3JDwQaAITwEnteZuGjGOCzTVQpiy6LPJWjKNOsVQU8TZBfMLEqUTKwCBcxZLWwNBCkGLB6UF QyTZLmDH1EInAxZHTjWVB4OPQjGEEaSIFdnh4WXLOf HWK9ORD6FHRyPBHtEHMzDOqyTOKoASWmDyF8BJHxYLPrHK1PLgRoWZEyIZH5AiJjLCKaIHZglt2GIIGy VON9ZBK5DsRzNTTfISLqPZkmYACxSWI8PLG8IIAfRZAaXP3CHxBdUORjPmD4HDAzLQBxKBGwfd3VSNQy XGL6FzZ8AtHgCCHvNVTwSCmwSNJnGGO4EIEnFROpTJ MyTJ4NQnWdSUpxESMSXff6NHpxW7x1IDF3FK8LK0Nvd6BqQLUtBSBKYDriIH6teoTwUWElHq4ON8bGSd mbXFC1WEF5BZDxLFUfMAL6VQseOiTzCQNiMVD1EzH7WC1zCSA7OEM0AiFePfXbHiP4UnzrJvWvFMG9Wf VsARHxIHVcTaQuBN1XCw3DKrH6FGF8bIMiLy9AJtuzVVxLMoSiSO7RYSr= ID Date Data Source [id number] 10/22/2020 01:25:40 PM EST [facility] PCName: Oscar NguyễnDOB: 1950Provider: Sultana [...] rce(s) Supporting Document(s) ID Date Data Source [id number] 08/31/2020 11:15:00 AM EST [facility] Name Value Range Interpretation Code Description Data Sandra rce(s) Supporting Document(s) SARS coronavirus 2 RNA [facility] This lab was ordered by [facility] and reported by [facility]. ID Date Data Source [id number] 07/22/2020 07:35:33 AM EDT [facility]: Oscar NguyễnDOB: 1950Provider: Dick [...] rce(s) Supporting Document(s) ID Date Data Source [id number] 07/14/2020 12:00:00 PM EDT [facility] Name Value Range Interpretation Code Description Data Sandra rce(s) Supporting Document(s) SARS coronavirus 2 RNA [facility] This lab was ordered by [facility] and reported by [facility]. Procedure Social History Code Duration Value Status Description Data Source(s ) Smoking 03/06/2021 12:00:00 AM EDT Never Smoker completed Never S kelly eCW1 ([facility]) Smoking 02/28/2021 12:00:00 AM EDT Never Smoker completed Never S moker eCW1 ([facility]) Smoking 02/28/2021 12:00:00 AM EDT Never Smoker completed Never S moker eCW1 ([facility]) Smoking 02/17/2021 12:00:00 AM EDT Never Smoker completed Never S moker eCW1 ([facility]) Smoking 02/06/2021 12:00:00 AM EDT Never Smoker completed Never S moker eCW1 ([facility]) Smoking 01/23/2021 12:00:00 AM EDT Never Smoker completed Never S moker eCW1 ([facility]) Smoking 01/20/2021 12:00:00 AM EDT Never Smoker completed Never S moker eCW1 ([facility]) Smoking 12/19/2020 12:00:00 AM EDT Never Smoker completed Never S moker eCW1 ([facility]) Smoking 12/19/2020 12:00:00 AM EDT Never Smoker completed Never S moker eCW1 ([facility]) Smoking 12/19/2020 12:00:00 AM EDT Never Smoker completed Never S moker eCW1 ([facility]) Smoking 12/19/2020 12:00:00 AM EDT Never Smoker completed Never S moker eCW1 ([facility]) Smoking 12/19/2020 12:00:00 AM EDT Never Smoker completed Never S moker eCW1 ([facility]) Smoking 10/19/2020 12:00:00 AM EST Never Smoker completed Never S moker eCW1 ([facility]) Smoking 10/19/2020 12:00:00 AM EST Never Smoker completed Never S moker eCW1 ([facility]) Smoking 10/19/2020 12:00:00 AM EST Never Smoker completed Never S moker eCW1 ([facility]) Smoking 10/19/2020 12:00:00 AM EST Never Smoker completed Never S moker eCW1 ([facility]) Smoking 10/19/2020 12:00:00 AM EST Never Smoker completed Never S moker eCW1 ([facility]) Smoking 10/19/2020 12:00:00 AM EST Never Smoker completed Never S moker eCW1 ([facility]) Smoking 09/19/2020 12:00:00 AM EST Never Smoker completed Never S moker eCW1 ([facility]) Smoking 09/19/2020 12:00:00 AM EST Never Smoker completed Never S moker eCW1 ([facility]) Smoking 09/19/2020 12:00:00 AM EST Never Smoker completed Never S moker eCW1 ([facility]) Smoking 09/06/2020 12:00:00 AM EST Never Smoker completed Never S moker eCW1 ([facility]) Smoking 09/06/2020 12:00:00 AM EST Never Smoker completed Never S moker eCW1 ([facility]) Smoking 08/05/2020 12:00:00 AM EST Never Smoker completed Never S moker eCW1 ([facility]) Smoking 07/19/2020 12:00:00 AM EDT Never Smoker completed Never S moker eCW1 ([facility]) Smoking 07/18/2020 12:00:00 AM EDT Never Smoker completed Never S moker eCW1 ([facility]) Vital Signs ID Date Data Source [facility] Name Value Range Interpretation Code Description Data Source(s) Body weight 251 [lb_av] 251 [lb_av] eCW1 ([facility]) Body height 63.50 [in_i] 63.50 [in_i] eCW1 ([facility]) Body mass index (BMI) [Ratio] 43.76 kg/m2 43.76 kg/m2 eCW1 ([facility]) Heart rate 96 /min 96 /min eCW1 ([facility]) Respiratory rate 18 /min 18 /min eCW1 ([facility]) Body temperature 97.4 [degF] 97.4 [degF] eCW1 ( [facility]) Systolic blood pressure 120 mm[Hg] 120 mm[Hg] e CW1 ([facility]) Diastolic blood pressure 64 mm[Hg] 64 mm[Hg] eCW1 ([facility]) Body weight 251 [lb_av] 251 [lb_av] eCW1 ([facility]) Body height 63.50 [in_i] 63.50 [in_i] eCW1 ([facility]) Body mass index (BMI) [Ratio] 43.76 kg/m2 43.76 kg/m2 eCW1 ([facility]) Heart rate 81 /min 81 /min eCW1 ([facility]) Respiratory rate 18 /min 18 /min eCW1 ([facility]) Body temperature 97 [degF] 97 [degF] eCW1 ([facility]) Systolic blood pressure 126 mm[Hg] 126 mm[Hg] e CW1 ([facility]) Diastolic blood pressure 60 mm[Hg] 60 mm[Hg] eCW1 ([facility]) Body weight [lb_av] eCW1 ([facility] Body height 63.50 [in_i] 63.50 [in_i] eCW1 ([facility]) Body mass index (BMI) [Ratio] 44.60 kg/m2 44.60 kg/m2 eCW1 ([facility]) Heart rate 103 /min 103 /min eCW1 ([facility]) Respiratory rate 18 /min 18 /min eCW1 ([facility]) Body temperature 97.8 [degF] 97.8 [degF] eCW1 ( [facility]) Systolic blood pressure 108 mm[Hg] 108 mm[Hg] e CW1 ([facility]) Diastolic blood pressure 72 mm[Hg] 72 mm[Hg] eCW1 ([facility]) Body weight 255.8 [lb_av] 255.8 [lb_av] eCW1 ([facility]) Body height 63.50 [in_i] 63.50 [in_i] eCW1 ([facility]) Body mass index (BMI) [Ratio] 44.60 kg/m2 44.60 kg/m2 eCW1 ([facility]) Heart rate 89 /min 89 /min eCW1 ([facility]) Respiratory rate 18 /min 18 /min eCW1 ([facility]) Body temperature 97.5 [degF] 97.5 [degF] eCW1 ( [facility]) Systolic blood pressure 130 mm[Hg] 130 mm[Hg] e CW1 ([facility]) Diastolic blood pressure 61 mm[Hg] 61 mm[Hg] eCW1 ([facility]) Body weight 258.8 [lb_av] 258.8 [lb_av] eCW1 ([facility]) Body height 63.50 [in_i] 63.50 [in_i] eCW1 ([facility]) Body mass index (BMI) [Ratio] 45.12 kg/m2 45.12 kg/m2 eCW1 ([facility]) Respiratory rate 18 /min 18 /min eCW1 ([facility]) Heart rate 77 /min 77 /min eCW1 ([facility]) Body temperature 96.9 [degF] 96.9 [degF] eCW1 ( [facility]) Systolic blood pressure 141 mm[Hg] 141 mm[Hg] e CW1 ([facility]) Diastolic blood pressure 63 mm[Hg] 63 mm[Hg] eCW1 ([facility]) Body weight 257 [lb_av] 257 [lb_av] eCW1 ([facility]) Body height 63.50 [in_i] 63.50 [in_i] eCW1 ([facility]) Body mass index (BMI) [Ratio] 44.81 kg/m2 44.81 kg/m2 eCW1 ([facility]) Heart rate 70 /min 70 /min eCW1 ([facility]) Respiratory rate 18 /min 18 /min eCW1 ([facility]) Body temperature 96.7 [degF] 96.7 [degF] eCW1 ( [facility]) Systolic blood pressure 114 mm[Hg] 114 mm[Hg] e CW1 ([facility]) Diastolic blood pressure 56 mm[Hg] 56 mm[Hg] eCW1 ([facility]) Systolic blood pressure 124 mm[Hg] 124 mm[Hg] e CW1 ([facility]) Body weight 254.4 [lb_av] 254.4 [lb_av] eCW1 ([facility]) Body height 63.50 [in_i] 63.50 [in_i] eCW1 ([facility]) Body mass index (BMI) [Ratio] 44.35 kg/m2 44.35 kg/m2 eCW1 ([facility]) Heart rate 104 /min 104 /min eCW1 ([facility]) Respiratory rate 18 /min 18 /min eCW1 ([facility]) Body temperature 97.2 [degF] 97.2 [degF] eCW1 ( [facility]) Diastolic blood pressure 68 mm[Hg] 68 mm[Hg] eCW1 ([facility]) Systolic blood pressure 112 mm[Hg] 112 mm[Hg] M EDENT ([facility], [facility]) Diastolic blood pressure 74 mm[Hg] 74 mm[Hg] MEDENT ([facility], [facility]) Heart rate 90 /min 90 /min MEDENT ([facility], [facility]) Respiratory rate 16 /min 16 /min MEDENT ( [facility], [facility]) Oxygen saturation in Arterial blood by Pulse oximetry 99 % 99 % MEDENT ([facility], [facility]) Body temperature 98.7 [degF] 98.7 [degF] MEDENT ([facility], [facility]) Body weight 255.00 [lb_av] 255.00 [lb_av] MEDEN T ([facility], [facility]) Body height 64.5 [in_i] 64.5 [in_i] MEDENT ([facility], [facility]) 5'4.50" Body mass index (BMI) [Ratio] 43.1 kg/m2 43.1 k g/m2 MEDENT ([facility], [facility]) Diastolic blood pressure 60 mm[Hg] 60 mm[Hg] eCW1 ([facility]) Body weight 252.2 [lb_av] 252.2 [lb_av] eCW1 ([facility]) Body height 63.50 [in_i] 63.50 [in_i] eCW1 ([facility]) Body mass index (BMI) [Ratio] 43.97 kg/m2 43.97 kg/m2 eCW1 ([facility]) Heart rate 91 /min 91 /min eCW1 ([facility]) Respiratory rate 18 /min 18 /min eCW1 ([facility]) Body temperature 96.7 [degF] 96.7 [degF] eCW1 ( [facility]) Systolic blood pressure 131 mm[Hg] 131 mm[Hg] e CW1 ([facility]) Systolic blood pressure 112 mm[Hg] 112 mm[Hg] M EDENT ([facility], [facility]) Diastolic blood pressure 70 mm[Hg] 70 mm[Hg] MEDENT ([facility], [facility]) Respiratory rate 14 /min 14 /min MEDENT ( [facility], [facility]) Oxygen saturation in Arterial blood by Pulse oximetry 97 % 97 % MEDENT ([facility], [facility]) Body temperature 96.8 [degF] 96.8 [degF] MEDENT ([facility], [facility]) Body weight 255.00 [lb_av] 255.00 [lb_av] MEDEN T ([facility], [facility]) Body height 64.5 [in_i] 64.5 [in_i] MEDENT ([facility], [facility]) 5'4.50" Body mass index (BMI) [Ratio] 43.1 kg/m2 43.1 k g/m2 MEDENT ([facility], [facility]) Heart rate 81 /min 81 /min MEDENT ([facility], [facility]) Body weight 255 [lb_av] 255 [lb_av] eCW1 ([facility]) Body temperature 97.5 [degF] 97.5 [degF] eCW1 ( [facility]) Respiratory rate 18 /min 18 /min eCW1 ([facility]) Systolic blood pressure 132 mm[Hg] 132 mm[Hg] e CW1 ([facility]) Diastolic blood pressure 74 mm[Hg] 74 mm[Hg] eCW1 ([facility]) Body height 63.50 [in_i] 63.50 [in_i] eCW1 ([facility]) Body mass index (BMI) [Ratio] 44.46 kg/m2 44.46 kg/m2 eCW1 ([facility]) Heart rate 104 /min 104 /min eCW1 ([facility]) Body weight 255.8 [lb_av] 255.8 [lb_av] eCW1 ([facility]) Body height 63.50 [in_i] 63.50 [in_i] eCW1 ([facility]) Body mass index (BMI) [Ratio] 44.60 kg/m2 44.60 kg/m2 eCW1 ([facility]) Heart rate 78 /min 78 /min eCW1 ([facility]) Respiratory rate 18 /min 18 /min eCW1 ([facility]) Body temperature 95.5 [degF] 95.5 [degF] eCW1 ( [facility]) Systolic blood pressure 131 mm[Hg] 131 mm[Hg] e CW1 ([facility]) Diastolic blood pressure 63 mm[Hg] 63 mm[Hg] eCW1 ([facility]) Body weight 252.4 [lb_av] 252.4 [lb_av] eCW1 ([facility]) Body height 63.50 [in_i] 63.50 [in_i] eCW1 ([facility]) Body mass index (BMI) [Ratio] 44.00 kg/m2 44.00 kg/m2 eCW1 ([facility]) Heart rate 86 /min 86 /min eCW1 ([facility]) Respiratory rate 18 /min 18 /min eCW1 ([facility]) Body temperature 96.5 [degF] 96.5 [degF] eCW1 ( [facility]) Systolic blood pressure 110 mm[Hg] 110 mm[Hg] e CW1 ([facility]) Diastolic blood pressure 68 mm[Hg] 68 mm[Hg] eCW1 ([facility]) Body weight 260 [lb_av] 260 [lb_av] eCW1 ([facility]) Body height 63.50 [in_i] 63.50 [in_i] eCW1 ([facility]) Body mass index (BMI) [Ratio] 45.33 kg/m2 45.33 kg/m2 eCW1 ([facility]) Heart rate 100 /min 100 /min eCW1 ([facility]) Respiratory rate 18 /min 18 /min eCW1 ([facility]) Body temperature 96.6 [degF] 96.6 [degF] eCW1 ( [facility]) Diastolic blood pressure 60 mm[Hg] 60 mm[Hg] eCW1 ([facility]) Systolic blood pressure 128 mm[Hg] 128 mm[Hg] e CW1 ([facility]) ID Date Data Source [id number] 01/11/2021 03:21:33 PM EDT [facility] Name Value Range Interpretation Code Description Data Source(s) WEIGHT RECORDED 254.00 pounds 254.00 pounds [facility] Height 64 Inches 064 Inches [facility] ID Date Data Source [id number] 11/30/2020 09:21:08 AM EST [facility] Name Value Range Interpretation Code Description Data Source(s) WEIGHT RECORDED 255.00 pounds 255.00 pounds [facility] Height 64 Inches 064 Inches [facility]
== END 2021-08-31 23:00 | disposition left against medical advice (07) ==
LOC: M ED 20:06
DX: Z53.29 Procedure and treatment not carried out because of patient's decision for other reasons (principal)

== ENCOUNTER → 2021-09-04 | Outpatient (REF) | payer BC | LOC: M SFHCADAM 15:38 | PROVIDERS: ATTEND Physician Assistant | DX: R05.9 Cough, unspecified (principal) ==

== ENCOUNTER → 2021-11-01 | Outpatient (CLI) | payer BC ==
[~2021-11-01] MED LIST changes: +CICL6.6S TOP; -CICL8SOL3 TOP
== END ==
LOC: M PAIN 13:30
PROVIDERS: ATTEND Anesthesiology
DX: M54.50 Low back pain, unspecified (principal); M79.10 Myalgia, unspecified site; M79.18 Myalgia, other site; I48.91 Unspecified atrial fibrillation; I10 Essential (primary) hypertension; E55.9 Vitamin D deficiency, unspecified; J45.909 Unspecified asthma, uncomplicated; M19.90 Unspecified osteoarthritis, unspecified site; L40.9 Psoriasis, unspecified; Z79.01 Long term (current) use of anticoagulants; Z79.899 Other long term (current) drug therapy; Z88.1 Allergy status to other antibiotic agents; Z88.6 Allergy status to analgesic agent

== ENCOUNTER → 2021-12-01 | Outpatient (REF) | payer BC ==
[2021-12-01 14:26] LABS: ALBUMIN 3.6 GM/DL (3.2-5.2); BILIRUBIN,TOTAL 0.8 MG/DL (0.2-1.0); CALCIUM LEVEL 9.3 MG/DL (8.8-10.2); CHOLESTEROL RISK RATIO 4.658 (<5); CREATININE FOR GFR 2.58 MG/DL (0.55-1.30); GLOMERULAR FILTRATION RATE 19.4 (>39); POTASSIUM SERUM 5.2 MEQ/L (3.5-5.1); TOTAL PROTEIN 7.4 GM/DL (6.4-8.2)
[2021-12-01 15:24] LABS: HEMOGLOBIN A1c 8.8 %
== END ==
LOC: M SFHCADAM 09:26
PROVIDERS: ATTEND Physician Assistant
DX: E11.9 Type 2 diabetes mellitus without complications (principal); E78.2 Mixed hyperlipidemia

== ENCOUNTER → 2021-12-04 | Outpatient (REF) | payer BC | LOC: M SFHCADAM 16:27 | PROVIDERS: ATTEND Family Medicine | DX: R09.81 Nasal congestion (principal) ==

== ENCOUNTER → 2021-12-06 | Outpatient (REF) | payer BC ==
[~2021-12-06] MED LIST changes: +FLON1SPR; -FLON1SPR NARES; +METF500T13 PO
[2021-12-06 13:44] LABS: ALBUMIN 3.3 GM/DL (3.2-5.2); BILIRUBIN,TOTAL 0.8 MG/DL (0.2-1.0); CALCIUM LEVEL 9.2 MG/DL (8.8-10.2); CREATININE FOR GFR 3.44 MG/DL (0.55-1.30); GLOMERULAR FILTRATION RATE 13.9 (>39); POTASSIUM SERUM 5.9 MEQ/L (3.5-5.1); TOTAL PROTEIN 6.9 GM/DL (6.4-8.2)
== END ==
LOC: M SFHCADAM 09:32
PROVIDERS: ATTEND Family Medicine
DX: R09.81 Nasal congestion (principal); N17.9 Acute kidney failure, unspecified

== ENCOUNTER 2021-12-07 14:50 | Inpatient (IN) | payer MEDICARE, BC ==
[~2021-12-07] VITALS: Ht 162.6 cm; Wt 108.3 kg
[~2021-12-07 14:50] MED LIST changes: -METF500T13 PO
[2021-12-07] MEDS ORDERED: NS 1,000 ML IV ONE ×2 (19:55→22:40)
[2021-12-07 20:13] LABS: BASO # 0.1 10^3/uL (0.0-0.2); BASO % 0.7 % (0.0-1.0); EOS # 0.1 10^3/uL (0.0-0.5); EOS % 1.4 % (0.0-3.0); HEMATOCRIT 36.4 % (36.0-47.0); HEMOGLOBIN 11.9 g/dl (12.0-15.5); LYMPH # 1.7 10^3/uL (1.5-5.0); MEAN CORPUSCULAR HGB CONC 32.7 g/dl (32.0-36.5); MEAN CORPUSCULAR VOLUME 100.8 fl (80.0-96.0); MONO # 0.8 10^3/uL (0.0-0.8); MONO % 11.4 % (2.0-8.0); NEUTROPHILS # 4.2 10^3/uL (1.5-8.5); NEUTROPHILS % 61.1 % (36.0-66.0); PLATELET COUNT, AUTOMATED 202 10^3/uL (150-450); RED BLOOD COUNT 3.61 10^6/uL (4.00-5.40); WHITE BLOOD COUNT 6.9 10^3/uL (4.0-10.0)
[2021-12-07 20:38] LABS: ALBUMIN 3.6 GM/DL (3.2-5.2); BILIRUBIN,DIRECT 0.4 MG/DL (0.0-0.2); BILIRUBIN,TOTAL 0.8 MG/DL (0.2-1.0); TOTAL PROTEIN 7.5 GM/DL (6.4-8.2)
[2021-12-07 22:22] LABS: CK-MB VALUE MASS < 1.0 NG/ML (<3.6); CPK CREATINE PHOSPHOKINASE 29 U/L (26-192); MB/CK RELATIVE INDEX 3.45 (< OR =4)
[2021-12-07 23:07] LABS: CK-MB VALUE MASS < 1.0 NG/ML (<3.6); CPK CREATINE PHOSPHOKINASE 31 U/L (26-192); MB/CK RELATIVE INDEX 3.23 (< OR =4)
[2021-12-08] MEDS ORDERED: GLUCAGON INJ 1MG VIAL SC PRN (00:35)
[2021-12-08] MEDS ORDERED: GLUCOSE 4GM CHEW TABLET PO PRN (00:35)
[2021-12-08] MEDS ORDERED: DEXTROSE 50% 50 ML SYRINGE IV PRN (00:35)
[2021-12-08] MEDS ORDERED: METF500T13 PO (01:22)
[2021-12-08] MEDS ORDERED: HOME MED LIST COMPLETE! XX SCH (01:25)
[2021-12-08] MEDS ORDERED: ALBUTEROL 90 MCG/ACT 8GM HFA INHALER INH PRN (01:35)
[2021-12-08] MEDS ORDERED: SOD POLYSTYRENE SULFONATE SUSP 15 GM/60 ML UD PO ONE (02:00)
[2021-12-08] MEDS: NS 1,000 ML IV SCH ×3 (02:23→22:16)
[2021-12-08 07:24] LABS: HEMATOCRIT 31.5 % (36.0-47.0); HEMOGLOBIN 10.4 g/dl (12.0-15.5); MEAN CORPUSCULAR HEMOGLOBIN 33.7 pg (27.0-33.0); MEAN CORPUSCULAR VOLUME 101.9 fl (80.0-96.0); PLATELET COUNT, AUTOMATED 152 10^3/uL (150-450); RED BLOOD COUNT 3.09 10^6/uL (4.00-5.40); WHITE BLOOD COUNT 5.3 10^3/uL (4.0-10.0)
[2021-12-08] MEDS ORDERED: HumaLOG INSULIN (NovoLOG) PER UNIT SC SCH ×2 (07:30→21:00)
[2021-12-08 07:57] LABS: ALBUMIN 2.8 GM/DL (3.2-5.2); BILIRUBIN,TOTAL 0.7 MG/DL (0.2-1.0); CALCIUM LEVEL 8.4 MG/DL (8.8-10.2); CREATININE FOR GFR 2.16 MG/DL (0.55-1.30); GLOMERULAR FILTRATION RATE 23.9 (>39); TOTAL PROTEIN 6.2 GM/DL (6.4-8.2)
[2021-12-08 08:31] LABS: INR 1.89; PROTHROMBIN TIME 22.1 SECONDS (12.7-14.5)
[2021-12-08 08:32] LABS: PARTIAL THROMBOPLASTIN TIME 37.7 SECONDS (25.9-37.0)
[2021-12-08] MEDS: CETIRIZINE (ZyrTEC) 10 MG TAB PO SCH (09:00)
[2021-12-08 10:19] LABS: HEPATITIS B CORE ANTIBODY IGM NEGATIVE (NEGATIVE); HEPATITIS B SURFACE ANTIGEN NEGATIVE (NEGATIVE); HEPATITIS C VIRUS ABY INDEX 0.1 INDEX (<0.8)
[2021-12-08] MEDS: MAGNESIUM OXIDE 400MG TAB (MAG-OX) PO SCH (11:19)
[2021-12-08] MEDS: APIXABAN 5 MG TAB (ELIQUIS) PO SCH ×2 (11:19→20:45)
[2021-12-08 18:15] VITALS: BP 159/71
[2021-12-08] MEDS ORDERED: VERAPAMIL 120MG SR TAB PO SCH (21:00)
[2021-12-08 21:02] VITALS: BP 151/71
[2021-12-09 05:44] LABS: HEMATOCRIT 29.3 % (36.0-47.0); HEMOGLOBIN 9.7 g/dl (12.0-15.5); MEAN CORPUSCULAR HEMOGLOBIN 33.7 pg (27.0-33.0); MEAN CORPUSCULAR HGB CONC 33.1 g/dl (32.0-36.5); MEAN CORPUSCULAR VOLUME 101.7 fl (80.0-96.0); PLATELET COUNT, AUTOMATED 136 10^3/uL (150-450); RED BLOOD COUNT 2.88 10^6/uL (4.00-5.40); WHITE BLOOD COUNT 4.7 10^3/uL (4.0-10.0)
[2021-12-09 05:54] VITALS: BP 144/76
[2021-12-09] MEDS: NS 1,000 ML IV SCH (06:14)
[2021-12-09 06:16] LABS: ALBUMIN 2.6 GM/DL (3.2-5.2); BILIRUBIN,TOTAL 0.4 MG/DL (0.2-1.0); CALCIUM LEVEL 7.9 MG/DL (8.8-10.2); CREATININE FOR GFR 1.42 MG/DL (0.55-1.30); GLOMERULAR FILTRATION RATE 38.7 (>39); POTASSIUM SERUM 4.9 MEQ/L (3.5-5.1); TOTAL PROTEIN 5.6 GM/DL (6.4-8.2)
[2021-12-09] MEDS ORDERED: NS 0.45% 1,000 ML IV SCH (07:40)
[2021-12-09] MEDS: CETIRIZINE (ZyrTEC) 10 MG TAB PO SCH (08:16)
[2021-12-09] MEDS: MAGNESIUM OXIDE 400MG TAB (MAG-OX) PO SCH (08:17)
[2021-12-09] MEDS: APIXABAN 5 MG TAB (ELIQUIS) PO SCH (08:23)
== END 2021-12-09 16:53 | disposition home or self-care (01) | DRG 641 ==
LOC: M ED 14:50 → M ED INP 23:35 → ENRESERV 12-08 17:06 → M MSPAV 12-08 18:15
PROVIDERS: ADMIT Family Medicine; ATTEND Internal Medicine
DX: E86.0 Dehydration (principal); N17.9 Acute kidney failure, unspecified; I48.91 Unspecified atrial fibrillation; I10 Essential (primary) hypertension; E87.5 Hyperkalemia; R53.1 Weakness; R42 Dizziness and giddiness; E11.9 Type 2 diabetes mellitus without complications; R94.5 Abnormal results of liver function studies; Z79.01 Long term (current) use of anticoagulants; Z79.84 Long term (current) use of oral hypoglycemic drugs; Z79.899 Other long term (current) drug therapy; Z88.1 Allergy status to other antibiotic agents; Z88.6 Allergy status to analgesic agent; Z88.8 Allergy status to other drugs, medicaments and biological substances; K76.0 Fatty (change of) liver, not elsewhere classified

== ENCOUNTER → 2021-12-12 | Outpatient (REF) | payer MEDICARE, BC ==
[~2021-12-12] MED LIST changes: +METF500T13 PO
[2021-12-12 12:41] LABS: ALBUMIN 3.4 GM/DL (3.2-5.2); CALCIUM LEVEL 9.1 MG/DL (8.8-10.2); CREATININE FOR GFR 1.72 MG/DL (0.55-1.30); PHOSPHORUS LEVEL 3.3 MG/DL (2.5-4.9); POTASSIUM SERUM 5.3 MEQ/L (3.5-5.1)
== END ==
LOC: M SFHCADAM 09:50
PROVIDERS: ATTEND Physician Assistant
DX: N17.9 Acute kidney failure, unspecified (principal)

== ENCOUNTER → 2021-12-20 | Outpatient (REF) | payer MEDICARE, BC ==
[2021-12-20 17:12] LABS: ALBUMIN 3.5 GM/DL (3.2-5.2); ALT/SGPT 110 U/L (12-78); BILIRUBIN,TOTAL 0.6 MG/DL (0.2-1.0); BLOOD UREA NITROGEN 21 MG/DL (7-18); CALCIUM LEVEL 9.3 MG/DL (8.8-10.2); CARBON DIOXIDE LEVEL 26 MEQ/L (21-32); CHLORIDE LEVEL 111 MEQ/L (98-107); CREATININE FOR GFR 0.93 MG/DL (0.55-1.30); GLOMERULAR FILTRATION RATE > 60.0 (>39); GLUCOSE, FASTING 109 MG/DL (70-100); POTASSIUM SERUM 4.6 MEQ/L (3.5-5.1); SODIUM LEVEL 141 MEQ/L (136-145); TOTAL PROTEIN 6.7 GM/DL (6.4-8.2)
== END ==
LOC: M SFHCADAM 13:40
PROVIDERS: ATTEND Physician Assistant
DX: N17.9 Acute kidney failure, unspecified (principal)

== ENCOUNTER → 2022-01-25 | Outpatient (CLI) | payer MEDICARE, BC | LOC: M LABSMTC 11:05 | PROVIDERS: ATTEND Anesthesiology | DX: Z01.812 Encounter for preprocedural laboratory examination (principal); Z11.52 Encounter for screening for COVID-19 ==

== ENCOUNTER → 2022-01-29 | Outpatient (CLI) | payer BC, MEDICARE ==
[~2022-01-29] MED LIST changes: +BUPIVACAINE HCL 0.25% 10ML VIAL As Ordered ONE; +BUPIVACAINE HCL 0.25% 30ML VIAL As Ordered ONE; +TRIAMCINOLONE ACETONIDE SUSP 40 MG/ML VIAL (J3301) As Ordered ONE; +diazePAM 2 MG TAB As Ordered ONE; +oxyCODONE 5MG TAB As Ordered ONE
== END ==
LOC: M PAIN 08:30
PROVIDERS: ATTEND Anesthesiology
DX: M79.18 Myalgia, other site (principal); E11.9 Type 2 diabetes mellitus without complications; E55.9 Vitamin D deficiency, unspecified; J45.909 Unspecified asthma, uncomplicated; Z88.1 Allergy status to other antibiotic agents; Z88.6 Allergy status to analgesic agent; Z79.01 Long term (current) use of anticoagulants; Z79.84 Long term (current) use of oral hypoglycemic drugs; Z79.899 Other long term (current) drug therapy
CPT/HCPCS: 20552; J3301

== ENCOUNTER → 2022-03-15 | Outpatient (REF) | payer BC, MEDICARE ==
[~2022-03-15] MED LIST changes: -BUPIVACAINE HCL 0.25% 10ML VIAL As Ordered ONE; -BUPIVACAINE HCL 0.25% 30ML VIAL As Ordered ONE; -TRIAMCINOLONE ACETONIDE SUSP 40 MG/ML VIAL (J3301) As Ordered ONE; -diazePAM 2 MG TAB As Ordered ONE; -oxyCODONE 5MG TAB As Ordered ONE
== END ==
LOC: M SFHCADAM 16:11
PROVIDERS: ATTEND Physician Assistant Medical
DX: R05.9 Cough, unspecified (principal)

== ENCOUNTER → 2022-03-16 | Outpatient (CLI) | payer BC | LOC: M WHC 12:53 | PROVIDERS: ATTEND Obstetrics & Gynecology | DX: R92.2 Inconclusive mammogram (principal) ==

== ENCOUNTER → 2022-03-23 | Outpatient (CLI) | payer BC, MEDICARE | LOC: M PAIN 11:15 | PROVIDERS: ATTEND Nurse Practitioner Family | DX: M79.18 Myalgia, other site (principal); G89.4 Chronic pain syndrome; I48.91 Unspecified atrial fibrillation; I10 Essential (primary) hypertension; E55.9 Vitamin D deficiency, unspecified; R60.9 Edema, unspecified; J45.909 Unspecified asthma, uncomplicated; L40.9 Psoriasis, unspecified; M19.90 Unspecified osteoarthritis, unspecified site; M51.26 Other intervertebral disc displacement, lumbar region; E11.9 Type 2 diabetes mellitus without complications; Z79.01 Long term (current) use of anticoagulants; Z79.899 Other long term (current) drug therapy; Z88.1 Allergy status to other antibiotic agents; Z88.6 Allergy status to analgesic agent ==

== ENCOUNTER → 2022-04-18 | Outpatient (CLI) | payer BC | LOC: M WHC 12:46 | PROVIDERS: ATTEND Obstetrics & Gynecology | DX: R92.8 Other abnormal and inconclusive findings on diagnostic imaging of breast (principal) | CPT/HCPCS: 77065; G0279 ==

== ENCOUNTER → 2022-05-14 | Outpatient (REF) | payer BC, MEDICARE ==
[2022-05-14 14:01] LABS: ALBUMIN 3.1 GM/DL (3.2-5.2); BILIRUBIN,TOTAL 0.6 MG/DL (0.2-1.0); CALCIUM LEVEL 8.8 MG/DL (8.8-10.2); CHOLESTEROL RISK RATIO 3.813 (<5); CREATININE FOR GFR 1.02 MG/DL (0.55-1.30); GLOMERULAR FILTRATION RATE 56.6 (>39); POTASSIUM SERUM 4.4 MEQ/L (3.5-5.1); TOTAL PROTEIN 6.8 GM/DL (6.4-8.2)
[2022-05-14 15:48] LABS: HEMOGLOBIN A1c 6.3 %
== END ==
LOC: M SFHCADAM 08:53
PROVIDERS: ATTEND Family Medicine
DX: I10 Essential (primary) hypertension (principal); R60.9 Edema, unspecified

== ENCOUNTER → 2022-08-09 | Outpatient (CLI) | payer BC, MEDICARE ==
[2022-08-09 14:00] LABS: HEMATOCRIT 32.1 % (36.0-47.0); HEMOGLOBIN 9.8 g/dl (12.0-15.5); MEAN CORPUSCULAR HEMOGLOBIN 29.5 pg (27.0-33.0); MEAN CORPUSCULAR HGB CONC 30.5 g/dl (32.0-36.5); MEAN CORPUSCULAR VOLUME 96.7 fl (80.0-96.0); PLATELET COUNT, AUTOMATED 191 10^3/uL (150-450); RED BLOOD COUNT 3.32 10^6/uL (4.00-5.40); WHITE BLOOD COUNT 6.2 10^3/uL (4.0-10.0)
[2022-08-09 14:28] LABS: BILIRUBIN,DIRECT 0.5 MG/DL (0.0-0.2); PERCENT SATURATION 27.4 % (13.2-45.0); TOTAL PROTEIN 6.9 GM/DL (6.4-8.2)
== END ==
LOC: M LABDRWAD 10:08
PROVIDERS: ATTEND Physician Assistant Medical
DX: D50.9 Iron deficiency anemia, unspecified (principal); K92.2 Gastrointestinal hemorrhage, unspecified

== ENCOUNTER 2022-09-05 21:52 | Inpatient (IN) | payer MEDICARE, BC ==
[~2022-09-05] VITALS: Ht 162.6 cm; Wt 108.7 kg
[~2022-09-05 21:52] MED LIST changes: -ACET650T15 PO; -ALBU8.5H INH; -AMOX875T PO; -D200CAP3 PO; -FERR1TAB8 PO; -SIMV20TA22 PO
[2022-09-05 22:43] LABS: BASO % 0.6 % (0.0-1.0); EOS # 0.1 10^3/uL (0.0-0.5); EOS % 1.8 % (0.0-3.0); LYMPH % 20.2 % (24.0-44.0); MEAN CORPUSCULAR HGB CONC 29.8 g/dl (32.0-36.5); MEAN CORPUSCULAR VOLUME 103.8 fl (80.0-96.0); MONO # 0.8 10^3/uL (0.0-0.8); MONO % 14.7 % (2.0-8.0); NEUTROPHILS # 3.2 10^3/uL (1.5-8.5); NEUTROPHILS % 62.3 % (36.0-66.0); PLATELET COUNT, AUTOMATED 209 10^3/uL (150-450); RED BLOOD COUNT 1.84 10^6/uL (4.00-5.40); WHITE BLOOD COUNT 5.1 10^3/uL (4.0-10.0)
[2022-09-05 22:45] LABS: HEMATOCRIT 19.1 % (36.0-47.0); HEMOGLOBIN 5.7 g/dl (12.0-15.5)
[2022-09-05 22:53] LABS: INR 2.38; PROTHROMBIN TIME 26.4 SECONDS (12.5-14.5)
[2022-09-05 23:13] LABS: ETHYL ALCOHOL (ETHANOL) 0.003 % (0.000-0.010); LIPASE 48 U/L (12-53)
[2022-09-05 23:14] LABS: CK-MB VALUE MASS < 1.0 NG/ML (<3.6)
[2022-09-05 23:15] LABS: ALBUMIN 3.1 G/DL (3.2-5.2); ALKALINE PHOSPHATASE 127 U/L (46-116); ALT/SGPT 30 U/L (7.0-40); AST/SGOT 45 U/L (<34); BILIRUBIN,DIRECT 0.4 MG/DL (<0.4); BILIRUBIN,TOTAL 0.8 MG/DL (0.3-1.2); BLOOD UREA NITROGEN 23 MG/DL (9-23); CALCIUM LEVEL 8.1 MG/DL (8.3-10.6); CARBON DIOXIDE LEVEL 23 MMOL/L (20-31); CHLORIDE LEVEL 108 MMOL/L (98-107); CPK CREATINE PHOSPHOKINASE 46 U/L (34-145); CREATININE FOR GFR 1.09 MG/DL (0.55-1.30); GLOMERULAR FILTRATION RATE 52.4 (>39); GLUCOSE, FASTING 197 MG/DL (74-106); MB/CK RELATIVE INDEX 2.17 (< OR =4); POTASSIUM SERUM 3.7 MMOL/L (3.5-5.1); SODIUM LEVEL 141 MMOL/L (136-145); TOTAL PROTEIN 6.4 G/DL (5.7-8.2)
[2022-09-05] MEDS ORDERED: PANTOPRAZOLE 40MG VIAL IV ONE (23:15)
[2022-09-05 23:24] LABS: RSV AMPLIFICATION NEGATIVE (NEGATIVE)
[2022-09-05] MEDS ORDERED: NS 1,000 ML IV ONE (23:25)
[2022-09-06] VITALS (12 sets, daily range): BP systolic 124–172; BP diastolic 60–88
[2022-09-06] MEDS ORDERED: FERR1TAB8 PO (01:12)
[2022-09-06] MEDS ORDERED: AMOX875T PO (01:12)
[2022-09-06] MEDS ORDERED: ACET650T15 PO (01:12)
[2022-09-06] MEDS ORDERED: FURO40TA2 PO (01:12)
[2022-09-06] MEDS ORDERED: D200CAP3 PO (01:12)
[2022-09-06] MEDS ORDERED: ALBU8.5H INH (01:12)
[2022-09-06] MEDS ORDERED: SIMV20TA22 PO (01:12)
[2022-09-06] MEDS ORDERED: HOME MED LIST COMPLETE! XX SCH (01:15)
[2022-09-06] MEDS ORDERED: DEXTROSE 50% 50ML SYRINGE IV PRN (02:00)
[2022-09-06] MEDS ORDERED: TRIAMCINOLONE ACET 0.1% CREAM 80GM TOP PRN (02:00)
[2022-09-06] MEDS ORDERED: ALBUTEROL 90 MCG/ACT 8GM HFA INHALER INH PRN (02:00)
[2022-09-06] MEDS ORDERED: GLUCAGON INJ 1MG VIAL SC PRN (02:00)
[2022-09-06] MEDS ORDERED: GLUCOSE 4GM CHEW TABLET PO PRN (02:00)
[2022-09-06 05:41] LABS: HEMATOCRIT 24.4 % (36.0-47.0); HEMOGLOBIN 7.5 g/dl (12.0-15.5)
[2022-09-06] MEDS: INSULIN LISPRO (NovoLOG) PER UNIT SC SCH ×3 (06:00→21:00)
[2022-09-06] MEDS: LevoFLOXacin 750 MG TABLET PO SCH (06:00)
[2022-09-06 06:21] LABS: CREATININE FOR GFR 1.02 MG/DL (0.55-1.30); GLOMERULAR FILTRATION RATE 56.6 (>39); POTASSIUM SERUM 3.7 MMOL/L (3.5-5.1)
[2022-09-06 06:24] LABS: FOLATE 21.66 NG/ML (>5.4); THYROID STIMULATING HORMONE 1.634 uIU/ML (0.55-4.78)
[2022-09-06] MEDS ORDERED: ISOVUE-370 76% 100ML VIAL As Ordered ONE (07:14)
[2022-09-06] MEDS ORDERED: FUROSEMIDE 40 MG TAB PO SCH (09:00)
[2022-09-06] MEDS: VERAPAMIL 120MG SR TAB PO SCH (09:00)
[2022-09-06] MEDS ORDERED: PANTOPRAZOLE 40MG VIAL IV SCH (09:00)
[2022-09-06] MEDS: ASCORBIC ACID 500 MG TAB PO SCH (09:50)
[2022-09-06] MEDS: MAGNESIUM OXIDE 400MG TAB (MAG-OX) PO SCH (09:50)
[2022-09-06 11:10] LABS: HEMATOCRIT 24.5 % (36.0-47.0); HEMOGLOBIN 7.5 g/dl (12.0-15.5)
[2022-09-06] MEDS ORDERED: LIDOCAINE 2% 100MG/5ML SDV (FOR ANES.) As Ordered ONE (16:43)
[2022-09-06] MEDS ORDERED: fentaNYL 100 MCG/2 ML INJECTION As Ordered ONE (16:43)
[2022-09-06] MEDS ORDERED: propofoL 200 MG/20 ML VIAL As Ordered ONE (16:43)
[2022-09-06] MEDS ORDERED: MIDAZOLAM INJ 2MG/2ML VIAL As Ordered ONE (16:44)
[2022-09-06 17:02] LABS: PERCENT SATURATION 35.9 % (13.2-45.0)
[2022-09-06 17:05] LABS: FERRITIN 18.8 NG/ML (7.3-270.7)
[2022-09-06 17:09] LABS: HEMATOCRIT 25.4 % (36.0-47.0); HEMOGLOBIN 7.9 g/dl (12.0-15.5)
[2022-09-06] MEDS ORDERED: LR 1,000 ML IV SCH (17:40)
[2022-09-06] MEDS ORDERED: ONDANSETRON 4MG 2ML VIAL IV PRN (17:40)
[2022-09-06] MEDS: FUROSEMIDE 40 MG TAB PO SCH (19:02)
[2022-09-06] MEDS: PANTOPRAZOLE 40MG TAB (PROTONIX) PO SCH (21:55)
[2022-09-06] MEDS: SIMVASTATIN 20 MG TAB PO SCH (21:55)
[2022-09-06 22:56] LABS: HEMATOCRIT 24.7 % (36.0-47.0); HEMOGLOBIN 7.7 g/dl (12.0-15.5)
[2022-09-07 06:00] VITALS: BP 128/58
[2022-09-07 06:40] LABS: BASO % 0.7 % (0.0-1.0); EOS # 0.1 10^3/uL (0.0-0.5); EOS % 1.9 % (0.0-3.0); HEMOGLOBIN 7.3 g/dl (12.0-15.5); LYMPH # 1.2 10^3/uL (1.5-5.0); LYMPH % 20.8 % (24.0-44.0); MEAN CORPUSCULAR HEMOGLOBIN 31.3 pg (27.0-33.0); MEAN CORPUSCULAR HGB CONC 31.7 g/dl (32.0-36.5); MEAN CORPUSCULAR VOLUME 98.7 fl (80.0-96.0); MONO # 0.9 10^3/uL (0.0-0.8); NEUTROPHILS # 3.5 10^3/uL (1.5-8.5); NEUTROPHILS % 61.3 % (36.0-66.0); PLATELET COUNT, AUTOMATED 188 10^3/uL (150-450); RED BLOOD COUNT 2.33 10^6/uL (4.00-5.40); WHITE BLOOD COUNT 5.7 10^3/uL (4.0-10.0)
[2022-09-07 06:52] LABS: BLOOD UREA NITROGEN 14 MG/DL (9-23); CALCIUM LEVEL 7.7 MG/DL (8.3-10.6); CARBON DIOXIDE LEVEL 28 MMOL/L (20-31); CHLORIDE LEVEL 106 MMOL/L (98-107); CREATININE FOR GFR 0.91 MG/DL (0.55-1.30); GLOMERULAR FILTRATION RATE > 60.0 (>39); GLUCOSE, FASTING 99 MG/DL (74-106); POTASSIUM SERUM 3.6 MMOL/L (3.5-5.1); SODIUM LEVEL 142 MMOL/L (136-145)
[2022-09-07] MEDS: SUCRALFATE SUSP 1GM/10ML UD PO SCH ×3 (08:56→18:29)
[2022-09-07] MEDS: VERAPAMIL 120MG SR TAB PO SCH (08:57)
[2022-09-07] MEDS: PANTOPRAZOLE 40MG TAB (PROTONIX) PO SCH ×2 (08:57→21:51)
[2022-09-07] MEDS: MAGNESIUM OXIDE 400MG TAB (MAG-OX) PO SCH (08:57)
[2022-09-07] MEDS: ASCORBIC ACID 500 MG TAB PO SCH (08:57)
[2022-09-07] MEDS: INSULIN LISPRO (NovoLOG) PER UNIT SC SCH ×4 (08:58→21:00)
[2022-09-07] MEDS: FUROSEMIDE 40 MG TAB PO SCH ×2 (08:58→18:29)
[2022-09-07] MEDS ORDERED: FERROUS SULFATE 325MG TAB PO SCH (09:00)
[2022-09-07] MEDS ORDERED: SODIUM CHLORIDE NASAL 0.65% SPRAY BTL (OCEAN) PRN (10:10)
[2022-09-07 10:36] LABS: LDH LACTATE DEHYDROGENASE 225 U/L (120-246)
[2022-09-07 14:00] VITALS: BP 143/58
[2022-09-07] MEDS ORDERED: ISOVUE-370 76% 100ML VIAL As Ordered ONE (14:01)
[2022-09-07 14:24] LABS: INR 1.85; PROTHROMBIN TIME 21.7 SECONDS (12.5-14.5)
[2022-09-07 20:00] VITALS: BP 138/59
[2022-09-07] MEDS: SIMVASTATIN 20 MG TAB PO SCH (21:51)
[2022-09-07 22:27] VITALS: BP 134/77
[2022-09-07 22:42] VITALS: BP 134/76
[2022-09-07 23:27] VITALS: BP 134/74
[2022-09-08] VITALS (8 sets, daily range): BP systolic 119–134; BP diastolic 55–68
[2022-09-08] MEDS: SUCRALFATE SUSP 1GM/10ML UD PO SCH ×3 (06:18→18:01)
[2022-09-08] MEDS: LevoFLOXacin 750 MG TABLET PO SCH (06:18)
[2022-09-08 07:04] LABS: BASO % 0.7 % (0.0-1.0); EOS # 0.2 10^3/uL (0.0-0.5); HEMATOCRIT 27.3 % (36.0-47.0); HEMOGLOBIN 8.5 g/dl (12.0-15.5); LYMPH # 1.4 10^3/uL (1.5-5.0); LYMPH % 23.6 % (24.0-44.0); MEAN CORPUSCULAR HEMOGLOBIN 30.8 pg (27.0-33.0); MEAN CORPUSCULAR HGB CONC 31.1 g/dl (32.0-36.5); MEAN CORPUSCULAR VOLUME 98.9 fl (80.0-96.0); MONO # 1.1 10^3/uL (0.0-0.8); MONO % 18.5 % (2.0-8.0); NEUTROPHILS % 52.9 % (36.0-66.0); PLATELET COUNT, AUTOMATED 194 10^3/uL (150-450); RED BLOOD COUNT 2.76 10^6/uL (4.00-5.40); WHITE BLOOD COUNT 5.7 10^3/uL (4.0-10.0)
[2022-09-08 07:28] LABS: BLOOD UREA NITROGEN 15 MG/DL (9-23); CALCIUM LEVEL 8.1 MG/DL (8.3-10.6); CARBON DIOXIDE LEVEL 24 MMOL/L (20-31); CHLORIDE LEVEL 109 MMOL/L (98-107); CREATININE FOR GFR 0.89 MG/DL (0.55-1.30); GLOMERULAR FILTRATION RATE > 60.0 (>39); GLUCOSE, FASTING 100 MG/DL (74-106); POTASSIUM SERUM 3.7 MMOL/L (3.5-5.1); SODIUM LEVEL 144 MMOL/L (136-145)
[2022-09-08] MEDS: INSULIN LISPRO (NovoLOG) PER UNIT SC SCH ×4 (07:30→20:27)
[2022-09-08] MEDS ORDERED: FUROSEMIDE 40MG/4ML VIAL IV SCH (09:00)
[2022-09-08] MEDS: VERAPAMIL 120MG SR TAB PO SCH (09:01)
[2022-09-08] MEDS: ASCORBIC ACID 500 MG TAB PO SCH (09:01)
[2022-09-08] MEDS: PANTOPRAZOLE 40MG TAB (PROTONIX) PO SCH ×2 (09:02→20:31)
[2022-09-08] MEDS: MAGNESIUM OXIDE 400MG TAB (MAG-OX) PO SCH (09:02)
[2022-09-08] MEDS: FUROSEMIDE 40MG/4ML VIAL IV SCH (18:02)
[2022-09-08] MEDS: SIMVASTATIN 20 MG TAB PO SCH (20:31)
[2022-09-09] MEDS: FUROSEMIDE 40MG/4ML VIAL IV SCH ×3 (00:11→17:02)
[2022-09-09 06:00] VITALS: BP 116/56
[2022-09-09 06:28] LABS: BASO % 0.7 % (0.0-1.0); EOS # 0.3 10^3/uL (0.0-0.5); EOS % 5.9 % (0.0-3.0); HEMATOCRIT 27.2 % (36.0-47.0); HEMOGLOBIN 8.5 g/dl (12.0-15.5); LYMPH # 1.3 10^3/uL (1.5-5.0); LYMPH % 24.2 % (24.0-44.0); MEAN CORPUSCULAR HEMOGLOBIN 31.1 pg (27.0-33.0); MEAN CORPUSCULAR HGB CONC 31.3 g/dl (32.0-36.5); MEAN CORPUSCULAR VOLUME 99.6 fl (80.0-96.0); MONO # 0.9 10^3/uL (0.0-0.8); MONO % 17.2 % (2.0-8.0); NEUTROPHILS # 2.8 10^3/uL (1.5-8.5); NEUTROPHILS % 51.6 % (36.0-66.0); PLATELET COUNT, AUTOMATED 192 10^3/uL (150-450); RED BLOOD COUNT 2.73 10^6/uL (4.00-5.40); WHITE BLOOD COUNT 5.4 10^3/uL (4.0-10.0)
[2022-09-09 06:44] LABS: CALCIUM LEVEL 7.9 MG/DL (8.3-10.6); GLOMERULAR FILTRATION RATE 57.9 (>39); POTASSIUM SERUM 3.6 MMOL/L (3.5-5.1)
[2022-09-09 07:58] LABS: MAGNESIUM LEVEL 2.1 MG/DL (1.8-2.4)
[2022-09-09 08:30] VITALS: BP 124/68
[2022-09-09] MEDS ORDERED: LevoFLOXacin IV 750 MG in IV 1 EA IV SCH (09:15)
[2022-09-09] MEDS: SUCRALFATE SUSP 1GM/10ML UD PO SCH ×3 (09:21→17:03)
[2022-09-09] MEDS: VERAPAMIL 120MG SR TAB PO SCH (09:23)
[2022-09-09] MEDS: MAGNESIUM OXIDE 400MG TAB (MAG-OX) PO SCH (09:23)
[2022-09-09] MEDS: PANTOPRAZOLE 40MG TAB (PROTONIX) PO SCH ×2 (09:23→20:06)
[2022-09-09] MEDS: ASCORBIC ACID 500 MG TAB PO SCH (09:24)
[2022-09-09] MEDS: INSULIN LISPRO (NovoLOG) PER UNIT SC SCH ×4 (09:25→21:00)
[2022-09-09] MEDS ORDERED: POTASSIUM CHLORIDE 10MEQ SR TABLET PO ONE ×2 (10:20→20:00)
[2022-09-09] MEDS: LevoFLOXacin 750 MG TABLET PO SCH (10:41)
[2022-09-09 20:01] VITALS: BP 127/58
[2022-09-09] MEDS: SIMVASTATIN 20 MG TAB PO SCH (20:06)
[2022-09-10] MEDS: FUROSEMIDE 40MG/4ML VIAL IV SCH (01:35)
[2022-09-10 05:10] VITALS: BP 143/67
[2022-09-10 05:50] LABS: BASO % 0.7 % (0.0-1.0); EOS # 0.3 10^3/uL (0.0-0.5); EOS % 5.9 % (0.0-3.0); HEMATOCRIT 28.1 % (36.0-47.0); HEMOGLOBIN 8.7 g/dl (12.0-15.5); LYMPH # 1.4 10^3/uL (1.5-5.0); LYMPH % 26.7 % (24.0-44.0); MEAN CORPUSCULAR HEMOGLOBIN 30.6 pg (27.0-33.0); MEAN CORPUSCULAR VOLUME 98.9 fl (80.0-96.0); MONO # 0.8 10^3/uL (0.0-0.8); MONO % 15.6 % (2.0-8.0); NEUTROPHILS # 2.7 10^3/uL (1.5-8.5); NEUTROPHILS % 50.7 % (36.0-66.0); PLATELET COUNT, AUTOMATED 191 10^3/uL (150-450); RED BLOOD COUNT 2.84 10^6/uL (4.00-5.40); WHITE BLOOD COUNT 5.4 10^3/uL (4.0-10.0)
[2022-09-10 06:17] LABS: ALBUMIN 2.7 G/DL (3.2-5.2); CREATININE FOR GFR 1.13 MG/DL (0.55-1.30); GLOMERULAR FILTRATION RATE 50.2 (>39); POTASSIUM SERUM 4.2 MMOL/L (3.5-5.1)
[2022-09-10] MEDS: LevoFLOXacin 750 MG TABLET PO SCH (06:21)
[2022-09-10] MEDS: SUCRALFATE SUSP 1GM/10ML UD PO SCH ×3 (07:31→17:00)
[2022-09-10] MEDS: MAGNESIUM OXIDE 400MG TAB (MAG-OX) PO SCH (08:28)
[2022-09-10] MEDS: PANTOPRAZOLE 40MG TAB (PROTONIX) PO SCH ×2 (08:28→20:38)
[2022-09-10] MEDS: ASCORBIC ACID 500 MG TAB PO SCH (08:28)
[2022-09-10] MEDS: INSULIN LISPRO (NovoLOG) PER UNIT SC SCH ×4 (08:28→20:35)
[2022-09-10] MEDS: VERAPAMIL 120MG SR TAB PO SCH (08:29)
[2022-09-10] MEDS ORDERED: LIDOCAINE 1% MDV 20ML VIAL As Ordered ONE (11:30)
[2022-09-10 13:28] LABS: APPEARANCE, BODY FLUID CLEAR (CLEAR); PLEURAL FL COLOR YELLOW (COLORLESS); SOURCE, BODY FLUID PLEURAL
[2022-09-10 13:31] LABS: PH BODY FLUID > 7.800 UNITS (NOT ESTABLISHED); SOURCE, BODY FLUID pH PLEURAL
[2022-09-10] MEDS: POTASSIUM CHLORIDE 10MEQ SR TABLET PO SCH (13:49)
[2022-09-10 14:00] VITALS: BP 132/73
[2022-09-10 14:20] LABS: SOURCE, BODY FLUID ALBUMIN PLEURAL
[2022-09-10 14:25] LABS: SOURCE, BODY FLUID GLUCOSE PLEURAL; SOURCE, BODY FLUID TRIG PLEURAL; TRIGLYCERIDE, BODY FLUID 14.99999 MG/DL (NOT ESTABLISHED)
[2022-09-10 14:26] LABS: AMYLASE, BODY FLUID 33 U/L (NOT ESTABLISHED); LDH, BODY FLUID 94 U/L (NOT ESTABLISHED); SOURCE, BODY FLUID AMYLASE PLEURAL; SOURCE, BODY FLUID LDH PLEURAL
[2022-09-10 14:27] LABS: CHOLESTEROL, BODY FLUID < 25 MG/DL (NOT ESTABLISHED); SOURCE, BODY FLUID CHOL PLEURAL; SOURCE, BODY FLUID TOT PROTEIN PLEURAL; TOTAL PROTEIN, BODY FLUID 2.1 G/DL (NOT ESTABLISHED)
[2022-09-10] MEDS: FUROSEMIDE 20MG/2ML VIAL IV SCH (17:00)
[2022-09-10 19:49] VITALS: BP 127/73
[2022-09-10] MEDS: SIMVASTATIN 20 MG TAB PO SCH (20:38)
[2022-09-10] MEDS: BENZONATATE 100MG CAPSULE PO PRN (21:05)
[2022-09-11 05:34] VITALS: BP 129/70
[2022-09-11] MEDS: LevoFLOXacin 750 MG TABLET PO SCH (05:39)
[2022-09-11] MEDS: BENZONATATE 100MG CAPSULE PO PRN (05:39)
[2022-09-11 06:04] LABS: BASO % 0.5 % (0.0-1.0); EOS # 0.2 10^3/uL (0.0-0.5); EOS % 4.2 % (0.0-3.0); HEMATOCRIT 27.1 % (36.0-47.0); HEMOGLOBIN 8.4 g/dl (12.0-15.5); LYMPH # 1.3 10^3/uL (1.5-5.0); MONO # 0.8 10^3/uL (0.0-0.8); MONO % 14.7 % (2.0-8.0); NEUTROPHILS # 3.3 10^3/uL (1.5-8.5); NEUTROPHILS % 57.4 % (36.0-66.0); PLATELET COUNT, AUTOMATED 174 10^3/uL (150-450); RED BLOOD COUNT 2.71 10^6/uL (4.00-5.40); WHITE BLOOD COUNT 5.7 10^3/uL (4.0-10.0)
[2022-09-11 06:39] LABS: CALCIUM LEVEL 8.1 MG/DL (8.3-10.6); CREATININE FOR GFR 1.07 MG/DL (0.55-1.30); GLOMERULAR FILTRATION RATE 53.5 (>39); POTASSIUM SERUM 4.3 MMOL/L (3.5-5.1)
[2022-09-11] MEDS: SUCRALFATE SUSP 1GM/10ML UD PO SCH ×2 (08:47→12:38)
[2022-09-11] MEDS: INSULIN LISPRO (NovoLOG) PER UNIT SC SCH ×2 (08:47→12:39)
[2022-09-11] MEDS: ASCORBIC ACID 500 MG TAB PO SCH (08:48)
[2022-09-11] MEDS: POTASSIUM CHLORIDE 10MEQ SR TABLET PO SCH (08:48)
[2022-09-11] MEDS: FUROSEMIDE 20MG/2ML VIAL IV SCH (08:48)
[2022-09-11] MEDS: PANTOPRAZOLE 40MG TAB (PROTONIX) PO SCH (08:48)
[2022-09-11] MEDS: MAGNESIUM OXIDE 400MG TAB (MAG-OX) PO SCH (08:48)
[2022-09-11 08:59] VITALS: BP 127/68
[2022-09-11] MEDS: VERAPAMIL 120MG SR TAB PO SCH (08:59)
[2022-09-11] MEDS ORDERED: LEVO1TAB40 PO (10:17)
[2022-09-11] MEDS ORDERED: [UNRECOGNIZED DRUG - OTHER] PO (10:17)
[2022-09-11] MEDS ORDERED: POTA-136 PO (10:17)
[2022-09-12 14:08] LABS: BODY FLUID CULTURE Not indicated. (.); LEGIONELLA ANTIGEN URINE Negative (Negative); ORGANISM ID Not indicated. (.); SPECIMEN SOURCE Urine (.); URINE STREP PNEUMONIAE ANTIGEN Negative (Negative)
== END 2022-09-11 13:22 | disposition home or self-care (01) | DRG 377 ==
LOC: M ED 21:52 → M ED INP 09-06 02:42 → ENRESERV 09-06 14:10 → M MSPAV 09-06 18:26
PROVIDERS: ADMIT Internal Medicine; ATTEND Internal Medicine
PROC: 30233N1 Transfusion of Nonautologous Red Blood Cells into Peripheral Vein, Percutaneous Approach (ICD-10-PCS; 2022-09-05)
PROC: 0DJ08ZZ Inspection of Upper Intestinal Tract, Via Natural or Artificial Opening Endoscopic (ICD-10-PCS; principal; 2022-09-06 14:00)
PROC: 0W993ZZ Drainage of Right Pleural Cavity, Percutaneous Approach (ICD-10-PCS; 2022-09-10)
DX: K31.811 Angiodysplasia of stomach and duodenum with bleeding (principal); J18.9 Pneumonia, unspecified organism; J90 Pleural effusion, not elsewhere classified; E87.20 Acidosis, unspecified; I13.0 Hypertensive heart and chronic kidney disease with heart failure and stage 1 through stage 4 chronic kidney disease, or unspecified chronic kidney disease; D62 Acute posthemorrhagic anemia; I50.32 Chronic diastolic (congestive) heart failure; Z68.41 Body mass index [BMI] 40.0-44.9, adult; E11.22 Type 2 diabetes mellitus with diabetic chronic kidney disease; I48.91 Unspecified atrial fibrillation; E66.01 Morbid (severe) obesity due to excess calories; R16.0 Hepatomegaly, not elsewhere classified; D53.9 Nutritional anemia, unspecified; K76.0 Fatty (change of) liver, not elsewhere classified; N18.31 Chronic kidney disease, stage 3a; E78.5 Hyperlipidemia, unspecified; G47.33 Obstructive sleep apnea (adult) (pediatric); I87.2 Venous insufficiency (chronic) (peripheral); J45.909 Unspecified asthma, uncomplicated; K21.9 Gastro-esophageal reflux disease without esophagitis; K29.50 Unspecified chronic gastritis without bleeding; K59.00 Constipation, unspecified; L40.9 Psoriasis, unspecified; M19.90 Unspecified osteoarthritis, unspecified site; M54.9 Dorsalgia, unspecified; R60.1 Generalized edema; Z88.6 Allergy status to analgesic agent; Z88.8 Allergy status to other drugs, medicaments and biological substances; Z79.899 Other long term (current) drug therapy; Z79.01 Long term (current) use of anticoagulants; Z96.651 Presence of right artificial knee joint; K80.20 Calculus of gallbladder without cholecystitis without obstruction

== ENCOUNTER → 2022-09-05 | Outpatient (CLI) | payer BC, MEDICARE ==
[~2022-09-05] MED LIST changes: +ACET650T15 PO; +ALBU8.5H INH; +AMOX875T PO; +D200CAP3 PO; +FERR1TAB8 PO; +SIMV20TA22 PO
== END ==
LOC: M ADAMS 13:57
PROVIDERS: ATTEND Physician Assistant
DX: R05.1 Acute cough (principal); R60.0 Localized edema; I48.91 Unspecified atrial fibrillation; I51.7 Cardiomegaly; J90 Pleural effusion, not elsewhere classified; M47.9 Spondylosis, unspecified; J81.1 Chronic pulmonary edema

== ENCOUNTER → 2022-09-05 | Outpatient (REF) | payer BC, MEDICARE ==
[2022-09-05 16:36] LABS: ALBUMIN 3.1 G/DL (3.2-5.2); ALKALINE PHOSPHATASE 121 U/L (46-116); ALT/SGPT 31 U/L (7.0-40); AST/SGOT 45 U/L (<34); BILIRUBIN,TOTAL 0.9 MG/DL (0.3-1.2); BLOOD UREA NITROGEN 22 MG/DL (9-23); CALCIUM LEVEL 8.5 MG/DL (8.3-10.6); CARBON DIOXIDE LEVEL 22 MMOL/L (20-31); CHLORIDE LEVEL 106 MMOL/L (98-107); CREATININE FOR GFR 0.95 MG/DL (0.55-1.30); GLOMERULAR FILTRATION RATE > 60.0 (>39); GLUCOSE, FASTING 130 MG/DL (74-106); POTASSIUM SERUM 3.8 MMOL/L (3.5-5.1); SODIUM LEVEL 140 MMOL/L (136-145); TOTAL PROTEIN 6.6 G/DL (5.7-8.2)
[2022-09-05 16:37] LABS: BASO % 0.7 % (0.0-1.0); EOS # 0.1 10^3/uL (0.0-0.5); EOS % 1.8 % (0.0-3.0); LYMPH # 1.2 10^3/uL (1.5-5.0); LYMPH % 20.5 % (24.0-44.0); MEAN CORPUSCULAR HEMOGLOBIN 31.5 pg (27.0-33.0); MEAN CORPUSCULAR HGB CONC 30.4 g/dl (32.0-36.5); MEAN CORPUSCULAR VOLUME 103.5 fl (80.0-96.0); NEUTROPHILS # 3.3 10^3/uL (1.5-8.5); NEUTROPHILS % 59.5 % (36.0-66.0); PLATELET COUNT, AUTOMATED 240 10^3/uL (150-450); WHITE BLOOD COUNT 5.6 10^3/uL (4.0-10.0)
[2022-09-05 17:23] LABS: HEMATOCRIT 20.7 % (36.0-47.0); HEMOGLOBIN 6.3 g/dl (12.0-15.5)
== END ==
LOC: M SFHCADAM 13:44
PROVIDERS: ATTEND Physician Assistant
DX: I12.9 Hypertensive chronic kidney disease with stage 1 through stage 4 chronic kidney disease, or unspecified chronic kidney disease (principal); I48.91 Unspecified atrial fibrillation; J01.80 Other acute sinusitis; R60.0 Localized edema; K31.819 Angiodysplasia of stomach and duodenum without bleeding; R05.1 Acute cough

== ENCOUNTER → 2022-09-18 | Outpatient (REF) | payer BC, MEDICARE ==
[~2022-09-18] MED LIST changes: +ACET650T15 PO; +ALBU8.5H INH; +AMOX875T PO; +D200CAP3 PO; +FERR1TAB8 PO; +LEVO1TAB40 PO; +POTA-136 PO; +SIMV20TA22 PO; +[UNRECOGNIZED DRUG - OTHER] PO
[2022-09-18 17:21] LABS: BASO # 0.1 10^3/uL (0.0-0.2); BASO % 1.1 % (0.0-1.0); EOS # 0.2 10^3/uL (0.0-0.5); EOS % 3.7 % (0.0-3.0); HEMATOCRIT 31.4 % (36.0-47.0); HEMOGLOBIN 9.7 g/dl (12.0-15.5); LYMPH # 1.2 10^3/uL (1.5-5.0); LYMPH % 26.1 % (24.0-44.0); MEAN CORPUSCULAR HEMOGLOBIN 30.9 pg (27.0-33.0); MEAN CORPUSCULAR HGB CONC 30.9 g/dl (32.0-36.5); MONO # 0.7 10^3/uL (0.0-0.8); MONO % 15.6 % (2.0-8.0); NEUTROPHILS # 2.4 10^3/uL (1.5-8.5); NEUTROPHILS % 53.3 % (36.0-66.0); PLATELET COUNT, AUTOMATED 198 10^3/uL (150-450); RED BLOOD COUNT 3.14 10^6/uL (4.00-5.40); WHITE BLOOD COUNT 4.6 10^3/uL (4.0-10.0)
[2022-09-18 17:47] LABS: ALKALINE PHOSPHATASE 125 U/L (46-116); ALT/SGPT 28 U/L (7.0-40); AST/SGOT 49 U/L (<34); BILIRUBIN,TOTAL 0.7 MG/DL (0.3-1.2); BLOOD UREA NITROGEN 16 MG/DL (9-23); CALCIUM LEVEL 8.8 MG/DL (8.3-10.6); CARBON DIOXIDE LEVEL 26 MMOL/L (20-31); CHLORIDE LEVEL 104 MMOL/L (98-107); CREATININE FOR GFR 0.96 MG/DL (0.55-1.30); GLOMERULAR FILTRATION RATE > 60.0 (>39); GLUCOSE, FASTING 143 MG/DL (74-106); SODIUM LEVEL 140 MMOL/L (136-145); TOTAL PROTEIN 6.6 G/DL (5.7-8.2)
== END ==
LOC: M SFHCADAM 11:35
PROVIDERS: ATTEND Physician Assistant Medical
DX: K31.819 Angiodysplasia of stomach and duodenum without bleeding (principal); D63.8 Anemia in other chronic diseases classified elsewhere; J18.9 Pneumonia, unspecified organism; K74.60 Unspecified cirrhosis of liver

== ENCOUNTER → 2022-10-03 | Outpatient (CLI) | payer BC, MEDICARE ==
[2022-10-03 13:40] LABS: BASO % 0.4 % (0.0-1.0); EOS # 0.2 10^3/uL (0.0-0.5); EOS % 3.5 % (0.0-3.0); HEMATOCRIT 31.2 % (36.0-47.0); HEMOGLOBIN 9.7 g/dl (12.0-15.5); LYMPH # 1.2 10^3/uL (1.5-5.0); LYMPH % 23.9 % (24.0-44.0); MEAN CORPUSCULAR HEMOGLOBIN 30.6 pg (27.0-33.0); MEAN CORPUSCULAR HGB CONC 31.1 g/dl (32.0-36.5); MEAN CORPUSCULAR VOLUME 98.4 fl (80.0-96.0); MONO # 0.6 10^3/uL (0.0-0.8); MONO % 11.8 % (2.0-8.0); NEUTROPHILS # 2.9 10^3/uL (1.5-8.5); PLATELET COUNT, AUTOMATED 160 10^3/uL (150-450); RED BLOOD COUNT 3.17 10^6/uL (4.00-5.40); WHITE BLOOD COUNT 4.9 10^3/uL (4.0-10.0)
[2022-10-03 14:08] LABS: BILIRUBIN,DIRECT 0.3 MG/DL (<0.4)
[2022-10-03 14:10] LABS: ALBUMIN 3.2 G/DL (3.2-5.2); ALKALINE PHOSPHATASE 160 U/L (46-116); ALT/SGPT 40 U/L (7.0-40); AST/SGOT 59 U/L (<34); BILIRUBIN,TOTAL 0.5 MG/DL (0.3-1.2); BLOOD UREA NITROGEN 21 MG/DL (9-23); CALCIUM LEVEL 8.9 MG/DL (8.3-10.6); CARBON DIOXIDE LEVEL 26 MMOL/L (20-31); CHLORIDE LEVEL 107 MMOL/L (98-107); CHOLESTEROL LEVEL 89 MG/DL (<200); CHOLESTEROL RISK RATIO 1.82 (<5); CPK CREATINE PHOSPHOKINASE 29 U/L (34-145); CREATININE FOR GFR 0.94 MG/DL (0.55-1.30); GLOMERULAR FILTRATION RATE > 60.0 (>39); GLUCOSE, FASTING 114 MG/DL (74-106); HDL CHOLESTEROL 48.8 MG/DL (>40); NON-HDL-C 40 MG/DL; POTASSIUM SERUM 4.1 MMOL/L (3.5-5.1); SODIUM LEVEL 144 MMOL/L (136-145); TOTAL PROTEIN 7.2 G/DL (5.7-8.2); TRIGLYCERIDES LEVEL 71 MG/DL (<150)
== END ==
LOC: M LABDRWAD 10:19
PROVIDERS: ATTEND Nurse Practitioner Family
DX: R53.83 Other fatigue (principal); I48.92 Unspecified atrial flutter; Z79.01 Long term (current) use of anticoagulants; I10 Essential (primary) hypertension; R06.83 Snoring; E66.01 Morbid (severe) obesity due to excess calories; Z68.41 Body mass index [BMI] 40.0-44.9, adult

== ENCOUNTER → 2022-10-12 | Outpatient (REF) | payer BC, MEDICARE ==
[2022-10-12 13:46] LABS: BASO % 0.6 % (0.0-1.0); EOS # 0.1 10^3/uL (0.0-0.5); EOS % 2.9 % (0.0-3.0); HEMATOCRIT 28.1 % (36.0-47.0); HEMOGLOBIN 8.6 g/dl (12.0-15.5); LYMPH # 1.2 10^3/uL (1.5-5.0); LYMPH % 24.2 % (24.0-44.0); MEAN CORPUSCULAR HEMOGLOBIN 30.6 pg (27.0-33.0); MEAN CORPUSCULAR HGB CONC 30.6 g/dl (32.0-36.5); MONO # 0.5 10^3/uL (0.0-0.8); MONO % 10.8 % (2.0-8.0); NEUTROPHILS % 61.1 % (36.0-66.0); PLATELET COUNT, AUTOMATED 153 10^3/uL (150-450); RED BLOOD COUNT 2.81 10^6/uL (4.00-5.40); WHITE BLOOD COUNT 4.8 10^3/uL (4.0-10.0)
[2022-10-12 14:17] LABS: CREATININE, URINE 164.6 MG/DL
[2022-10-12 14:21] LABS: ALBUMIN 3.3 G/DL (3.2-5.2); BILIRUBIN,TOTAL 0.7 MG/DL (0.3-1.2); CHOLESTEROL RISK RATIO 2.26 (<5); CREATININE FOR GFR 1.24 MG/DL (0.55-1.30); GLOMERULAR FILTRATION RATE 45.1 (>39); HDL CHOLESTEROL 43.2 MG/DL (>40); LDL CHOLESTEROL 37.8 MG/DL (<100); POTASSIUM SERUM 4.4 MMOL/L (3.5-5.1); TOTAL PROTEIN 6.6 G/DL (5.7-8.2)
[2022-10-12 14:22] LABS: THYROID STIMULATING HORMONE 1.638 uIU/ML (0.55-4.78)
== END ==
LOC: M SFHCADAM 09:32
PROVIDERS: ATTEND Physician Assistant Medical
DX: N18.31 Chronic kidney disease, stage 3a (principal); E11.22 Type 2 diabetes mellitus with diabetic chronic kidney disease; K76.0 Fatty (change of) liver, not elsewhere classified; K80.20 Calculus of gallbladder without cholecystitis without obstruction

== ENCOUNTER 2022-10-30 15:30 | Inpatient (IN) | payer MEDICARE, BC ==
[~2022-10-30] VITALS: Ht 162.6 cm; Wt 102.8 kg
[2022-10-30] VITALS (10 sets, daily range): BP systolic 129–150; BP diastolic 58–70
[~2022-10-30 15:30] MED LIST changes: -PANT40TA29 PO
[2022-10-30] MEDS ORDERED: PANTOPRAZOLE 40MG VIAL IV ONE (16:30)
[2022-10-30 16:52] LABS: BASO % 0.4 % (0.0-1.0); EOS # 0.2 10^3/uL (0.0-0.5); EOS % 3.1 % (0.0-3.0); LYMPH % 20.9 % (24.0-44.0); MEAN CORPUSCULAR HEMOGLOBIN 31.6 pg (27.0-33.0); MEAN CORPUSCULAR HGB CONC 30.3 g/dl (32.0-36.5); MEAN CORPUSCULAR VOLUME 104.1 fl (80.0-96.0); MONO # 0.6 10^3/uL (0.0-0.8); MONO % 11.9 % (2.0-8.0); NEUTROPHILS % 63.1 % (36.0-66.0); PLATELET COUNT, AUTOMATED 156 10^3/uL (150-450); RED BLOOD COUNT 1.71 10^6/uL (4.00-5.40); WHITE BLOOD COUNT 4.8 10^3/uL (4.0-10.0)
[2022-10-30 17:11] LABS: INR 2.07; PROTHROMBIN TIME 23.7 SECONDS (12.5-14.5)
[2022-10-30 17:12] LABS: PARTIAL THROMBOPLASTIN TIME 35.7 SECONDS (24.8-34.2)
[2022-10-30 17:33] LABS: LIPASE 43 U/L (12-53)
[2022-10-30 17:35] LABS: ALKALINE PHOSPHATASE 131 U/L (46-116); ALT/SGPT 35 U/L (7.0-40); AST/SGOT 44 U/L (<34); BILIRUBIN,DIRECT 0.3 MG/DL (<0.4); BILIRUBIN,TOTAL 0.6 MG/DL (0.3-1.2); BLOOD UREA NITROGEN 23 MG/DL (9-23); CARBON DIOXIDE LEVEL 23 MMOL/L (20-31); CHLORIDE LEVEL 110 MMOL/L (98-107); CREATININE FOR GFR 0.93 MG/DL (0.55-1.30); GLOMERULAR FILTRATION RATE > 60.0 (>39); GLUCOSE, FASTING 150 MG/DL (74-106); HEMATOCRIT 17.8 % (36.0-47.0); HEMOGLOBIN 5.4 g/dl (12.0-15.5); POTASSIUM SERUM 3.8 MMOL/L (3.5-5.1); SODIUM LEVEL 143 MMOL/L (136-145)
[2022-10-30 17:59] LABS: RSV AMPLIFICATION NEGATIVE (NEGATIVE)
[2022-10-30] MEDS ORDERED: ACETAMINOPHEN TAB 650MG DOSE (2X325MG) PO PRN (19:45)
[2022-10-30] MEDS ORDERED: PANT40TA29 PO (20:12)
[2022-10-30] MEDS ORDERED: HOME MED LIST COMPLETE! XX SCH (20:15)
[2022-10-31] VITALS (13 sets, daily range): BP systolic 97–157; BP diastolic 46–76
[2022-10-31 00:08] LABS: HEMATOCRIT 21.6 % (36.0-47.0)
[2022-10-31 00:10] LABS: HEMOGLOBIN 6.8 g/dl (12.0-15.5)
[2022-10-31] MEDS ORDERED: ALBUTEROL 90 MCG/ACT 8GM HFA INHALER INH PRN (00:20)
[2022-10-31] MEDS ORDERED: FLUTICASONE PROP 0.05% NASAL SPRAY 16 GM (FLONASE) PRN (00:20)
[2022-10-31] MEDS: FUROSEMIDE 40 MG TAB PO SCH ×3 (00:43→17:46)
[2022-10-31] MEDS ORDERED: GLUCOSE 4GM CHEW TABLET PO PRN (01:30)
[2022-10-31] MEDS ORDERED: DEXTROSE 50% 50ML SYRINGE IV PRN (01:30)
[2022-10-31] MEDS ORDERED: GLUCAGON INJ 1MG VIAL SC PRN (01:30)
[2022-10-31 07:13] LABS: HEMATOCRIT 25.7 % (36.0-47.0); HEMOGLOBIN 8.1 g/dl (12.0-15.5); MEAN CORPUSCULAR HEMOGLOBIN 29.9 pg (27.0-33.0); MEAN CORPUSCULAR HGB CONC 31.5 g/dl (32.0-36.5); MEAN CORPUSCULAR VOLUME 94.8 fl (80.0-96.0); PLATELET COUNT, AUTOMATED 145 10^3/uL (150-450); RED BLOOD COUNT 2.71 10^6/uL (4.00-5.40); WHITE BLOOD COUNT 6.8 10^3/uL (4.0-10.0)
[2022-10-31 07:53] LABS: ALBUMIN 2.6 G/DL (3.2-5.2); ALKALINE PHOSPHATASE 115 U/L (46-116); ALT/SGPT 32 U/L (7.0-40); AST/SGOT 41 U/L (<34); BLOOD UREA NITROGEN 19 MG/DL (9-23); CALCIUM LEVEL 7.7 MG/DL (8.3-10.6); CARBON DIOXIDE LEVEL 23 MMOL/L (20-31); CHLORIDE LEVEL 112 MMOL/L (98-107); GLOMERULAR FILTRATION RATE > 60.0 (>39); GLUCOSE, FASTING 129 MG/DL (74-106); MAGNESIUM LEVEL 1.8 MG/DL (1.8-2.4); POTASSIUM SERUM 4.1 MMOL/L (3.5-5.1); SODIUM LEVEL 144 MMOL/L (136-145); TOTAL PROTEIN 5.3 G/DL (5.7-8.2)
[2022-10-31] MEDS: CETIRIZINE (ZyrTEC) 10 MG TAB PO SCH (08:38)
[2022-10-31] MEDS: MAGNESIUM OXIDE 400MG TAB (MAG-OX) PO SCH (08:38)
[2022-10-31] MEDS: FERROUS SULFATE 325MG TAB PO SCH (08:39)
[2022-10-31] MEDS: PANTOPRAZOLE 40MG VIAL IV SCH ×2 (08:39→20:59)
[2022-10-31] MEDS: ASCORBIC ACID 500 MG TAB PO SCH (08:39)
[2022-10-31] MEDS: INSULIN LISPRO (NovoLOG) PER UNIT SC SCH ×3 (08:40→17:30)
[2022-10-31] MEDS: VERAPAMIL 120MG SR TAB PO SCH (08:40)
[2022-10-31] MEDS ORDERED: FLUBLOK(EGG FREE)(QUAD)INFLUENZA VACC 0.5ML SYRINGE 18YRS & OLDER IM.IMMUN ONE (09:00)
[2022-10-31 10:53] LABS: BILIRUBIN,DIRECT 0.8 MG/DL (<0.4)
[2022-10-31 11:05] LABS: IRON (FE) 286 UG/DL (50-170); PERCENT SATURATION 79.9 % (13.2-45.0); TOTAL IRON BINDING CAPACITY 358 UG/DL (250-425)
[2022-10-31 11:06] LABS: FERRITIN 15.3 NG/ML (7.3-270.7); FOLATE 16.7 NG/ML (>5.4)
[2022-10-31 11:07] LABS: VITAMIN B12 LEVEL 477 PG/ML (211-911)
[2022-10-31 13:12] LABS: HEMATOCRIT 27.5 % (36.0-47.0)
[2022-10-31] MEDS ORDERED: INSULIN LISPRO (NovoLOG) PER UNIT SC SCH (21:00)
[2022-10-31] MEDS ORDERED: SIMVASTATIN 20 MG TAB PO SCH (21:00)
[2022-10-31 21:17] LABS: HEMATOCRIT 27.8 % (36.0-47.0)
[2022-11-01] VITALS: BP 111/53
[2022-11-01 04:00] VITALS: BP 113/54
[2022-11-01 05:57] LABS: HEMATOCRIT 26.6 % (36.0-47.0); HEMOGLOBIN 8.5 g/dl (12.0-15.5); MEAN CORPUSCULAR HEMOGLOBIN 30.2 pg (27.0-33.0); MEAN CORPUSCULAR VOLUME 94.7 fl (80.0-96.0); PLATELET COUNT, AUTOMATED 154 10^3/uL (150-450); RED BLOOD COUNT 2.81 10^6/uL (4.00-5.40); WHITE BLOOD COUNT 5.4 10^3/uL (4.0-10.0)
[2022-11-01] MEDS ORDERED: ACETAMINOPHEN TAB 650MG DOSE (2X325MG) As Ordered ONE (06:54)
[2022-11-01] MEDS: INSULIN LISPRO (NovoLOG) PER UNIT SC SCH ×2 (07:30→12:00)
[2022-11-01 08:00] VITALS: BP 140/62
[2022-11-01] MEDS: MAGNESIUM OXIDE 400MG TAB (MAG-OX) PO SCH (08:14)
[2022-11-01] MEDS: FERROUS SULFATE 325MG TAB PO SCH (08:15)
[2022-11-01] MEDS: ASCORBIC ACID 500 MG TAB PO SCH (08:15)
[2022-11-01] MEDS: FUROSEMIDE 40 MG TAB PO SCH (08:15)
[2022-11-01] MEDS: PANTOPRAZOLE 40MG VIAL IV SCH (08:15)
[2022-11-01] MEDS: CETIRIZINE (ZyrTEC) 10 MG TAB PO SCH (08:15)
[2022-11-01 08:17] VITALS: BP 140/62
[2022-11-01] MEDS: VERAPAMIL 120MG SR TAB PO SCH (08:17)
[2022-11-01] MEDS ORDERED: FERR1TAB8 PO (10:30)
[2022-11-01 12:11] LABS: HEMATOCRIT 29.8 % (36.0-47.0); HEMOGLOBIN 9.5 g/dl (12.0-15.5)
== END 2022-11-01 14:00 | disposition home or self-care (01) | DRG 378 ==
LOC: M ED 15:30 → M ED INP 19:45 → M PCU 22:33
PROVIDERS: ADMIT Internal Medicine; ATTEND Student in an Organized Health Care Education/Training Program
PROC: 30233N1 Transfusion of Nonautologous Red Blood Cells into Peripheral Vein, Percutaneous Approach (ICD-10-PCS; principal; 2022-10-30)
DX: K92.2 Gastrointestinal hemorrhage, unspecified (principal); I50.32 Chronic diastolic (congestive) heart failure; J90 Pleural effusion, not elsewhere classified; D50.9 Iron deficiency anemia, unspecified; K31.819 Angiodysplasia of stomach and duodenum without bleeding; K57.90 Diverticulosis of intestine, part unspecified, without perforation or abscess without bleeding; K64.9 Unspecified hemorrhoids; K21.9 Gastro-esophageal reflux disease without esophagitis; M19.90 Unspecified osteoarthritis, unspecified site; I11.0 Hypertensive heart disease with heart failure; E66.9 Obesity, unspecified; E11.9 Type 2 diabetes mellitus without complications; E78.5 Hyperlipidemia, unspecified; I48.0 Paroxysmal atrial fibrillation; I08.1 Rheumatic disorders of both mitral and tricuspid valves; Z98.49 Cataract extraction status, unspecified eye; J45.909 Unspecified asthma, uncomplicated; Z79.899 Other long term (current) drug therapy; Z88.1 Allergy status to other antibiotic agents; Z88.6 Allergy status to analgesic agent; Z79.01 Long term (current) use of anticoagulants; Z68.38 Body mass index [BMI] 38.0-38.9, adult

== ENCOUNTER → 2022-10-30 | Outpatient (REF) | payer BC, MEDICARE ==
[~2022-10-30] MED LIST changes: +PANT40TA29 PO
[2022-10-30 13:48] LABS: PERCENT SATURATION 10.1 % (13.2-45.0)
[2022-10-30 13:49] LABS: FERRITIN 14.4 NG/ML (7.3-270.7)
[2022-10-30 13:53] LABS: MEAN CORPUSCULAR HEMOGLOBIN 30.7 pg (27.0-33.0); MEAN CORPUSCULAR HGB CONC 28.9 g/dl (32.0-36.5); MEAN CORPUSCULAR VOLUME 106.1 fl (80.0-96.0); PLATELET COUNT, AUTOMATED 173 10^3/uL (150-450); RED BLOOD COUNT 1.79 10^6/uL (4.00-5.40); WHITE BLOOD COUNT 5.6 10^3/uL (4.0-10.0)
[2022-10-30 14:01] LABS: INR 2.27; PROTHROMBIN TIME 25.4 SECONDS (12.5-14.5)
[2022-10-30 14:18] LABS: HEMOGLOBIN 5.5 g/dl (12.0-15.5)
== END ==
LOC: M SFHCADAM 09:36
PROVIDERS: ATTEND Family Medicine
DX: K31.819 Angiodysplasia of stomach and duodenum without bleeding (principal); D63.8 Anemia in other chronic diseases classified elsewhere; K74.60 Unspecified cirrhosis of liver

== ENCOUNTER → 2022-11-06 | Outpatient (CLI) | payer MEDICARE, BC ==
[~2022-11-06] MED LIST changes: +PANT40TA29 PO
[2022-11-06 13:25] LABS: ALBUMIN 3.2 G/DL (3.2-5.2); BILIRUBIN,TOTAL 0.9 MG/DL (0.3-1.2); CALCIUM LEVEL 8.5 MG/DL (8.3-10.6); CREATININE FOR GFR 0.99 MG/DL (0.55-1.30); GLOMERULAR FILTRATION RATE 58.5 (>39); HEMATOCRIT 30.4 % (36.0-47.0); HEMOGLOBIN 9.2 g/dl (12.0-15.5); MEAN CORPUSCULAR HEMOGLOBIN 30.3 pg (27.0-33.0); MEAN CORPUSCULAR HGB CONC 30.3 g/dl (32.0-36.5); PLATELET COUNT, AUTOMATED 185 10^3/uL (150-450); POTASSIUM SERUM 4.5 MMOL/L (3.5-5.1); RED BLOOD COUNT 3.04 10^6/uL (4.00-5.40); TOTAL PROTEIN 6.7 G/DL (5.7-8.2); WHITE BLOOD COUNT 4.6 10^3/uL (4.0-10.0)
[2022-11-06 13:36] LABS: INR 1.44; PROTHROMBIN TIME 17.8 SECONDS (12.5-14.5)
== END ==
LOC: M LABDRWAD 10:03
PROVIDERS: ATTEND Internal Medicine Gastroenterology
DX: K92.2 Gastrointestinal hemorrhage, unspecified (principal); D50.9 Iron deficiency anemia, unspecified; Z86.010 Personal history of colon polyps; K31.89 Other diseases of stomach and duodenum; I85.00 Esophageal varices without bleeding; D17.79 Benign lipomatous neoplasm of other sites; K64.0 First degree hemorrhoids; K57.30 Diverticulosis of large intestine without perforation or abscess without bleeding

== ENCOUNTER → 2022-11-09 | Outpatient (REF) | payer BC, MEDICARE ==
[2022-11-09 21:59] LABS: BASO % 0.8 % (0.0-1.0); EOS # 0.2 10^3/uL (0.0-0.5); EOS % 3.9 % (0.0-3.0); HEMATOCRIT 31.8 % (36.0-47.0); HEMOGLOBIN 9.8 g/dl (12.0-15.5); LYMPH # 1.2 10^3/uL (1.5-5.0); LYMPH % 25.3 % (24.0-44.0); MEAN CORPUSCULAR HEMOGLOBIN 31.1 pg (27.0-33.0); MEAN CORPUSCULAR HGB CONC 30.8 g/dl (32.0-36.5); MONO # 0.7 10^3/uL (0.0-0.8); MONO % 14.3 % (2.0-8.0); NEUTROPHILS # 2.7 10^3/uL (1.5-8.5); NEUTROPHILS % 55.3 % (36.0-66.0); PLATELET COUNT, AUTOMATED 215 10^3/uL (150-450); RED BLOOD COUNT 3.15 10^6/uL (4.00-5.40); WHITE BLOOD COUNT 4.8 10^3/uL (4.0-10.0)
== END ==
LOC: M SFHCADAM 14:09
PROVIDERS: ATTEND Family Medicine
DX: Z87.19 Personal history of other diseases of the digestive system (principal)

== ENCOUNTER → 2022-11-28 | Outpatient (CLI) | payer BC | LOC: M RAD 07:26 | PROVIDERS: ATTEND Internal Medicine Gastroenterology | DX: I85.00 Esophageal varices without bleeding (principal); K92.2 Gastrointestinal hemorrhage, unspecified; D50.9 Iron deficiency anemia, unspecified; R93.3 Abnormal findings on diagnostic imaging of other parts of digestive tract ==

== ENCOUNTER → 2022-12-04 | Outpatient (REF) | payer BC ==
[2022-12-04 13:38] LABS: HEMATOCRIT 28.3 % (36.0-47.0); HEMOGLOBIN 8.7 g/dl (12.0-15.5); MEAN CORPUSCULAR HEMOGLOBIN 31.4 pg (27.0-33.0); MEAN CORPUSCULAR HGB CONC 30.7 g/dl (32.0-36.5); MEAN CORPUSCULAR VOLUME 102.2 fl (80.0-96.0); PLATELET COUNT, AUTOMATED 147 10^3/uL (150-450); RED BLOOD COUNT 2.77 10^6/uL (4.00-5.40); WHITE BLOOD COUNT 3.9 10^3/uL (4.0-10.0)
== END ==
LOC: M LABDRWAD 12:51
PROVIDERS: ATTEND Internal Medicine Gastroenterology
DX: I85.00 Esophageal varices without bleeding (principal); Q27.30 Arteriovenous malformation, site unspecified; K44.9 Diaphragmatic hernia without obstruction or gangrene; K22.89 Other specified disease of esophagus; K31.89 Other diseases of stomach and duodenum; D37.1 Neoplasm of uncertain behavior of stomach

== ENCOUNTER → 2023-03-14 | Outpatient (REF) | payer BC, MEDICARE ==
[2023-03-14 13:29] LABS: BASO % 0.7 % (0.0-1.0); EOS # 0.2 10^3/uL (0.0-0.5); EOS % 5.2 % (0.0-3.0); HEMATOCRIT 32.1 % (36.0-47.0); HEMOGLOBIN 10.4 g/dl (12.0-15.5); LYMPH # 1.2 10^3/uL (1.5-5.0); LYMPH % 28.9 % (24.0-44.0); MEAN CORPUSCULAR HEMOGLOBIN 32.7 pg (27.0-33.0); MEAN CORPUSCULAR HGB CONC 32.4 g/dl (32.0-36.5); MEAN CORPUSCULAR VOLUME 100.9 fl (80.0-96.0); MONO # 0.5 10^3/uL (0.0-0.8); MONO % 13.2 % (2.0-8.0); NEUTROPHILS # 2.1 10^3/uL (1.5-8.5); NEUTROPHILS % 51.3 % (36.0-66.0); PLATELET COUNT, AUTOMATED 125 10^3/uL (150-450); RED BLOOD COUNT 3.18 10^6/uL (4.00-5.40)
[2023-03-14 13:32] LABS: C REACTIVE PROTEIN QUANTITATIV < 0.40 MG/DL (<1.0); RHEUMATOID FACTOR QUANT < 3.5 IU/ML (<14)
[2023-03-14 13:33] LABS: ALBUMIN 3.3 G/DL (3.2-5.2); ALKALINE PHOSPHATASE 178 U/L (46-116); ALT/SGPT 57 U/L (7.0-40); AST/SGOT 61 U/L (<34); BILIRUBIN,TOTAL 0.6 MG/DL (0.3-1.2); BLOOD UREA NITROGEN 27 MG/DL (9-23); CALCIUM LEVEL 9.1 MG/DL (8.3-10.6); CARBON DIOXIDE LEVEL 25 MMOL/L (20-31); CHLORIDE LEVEL 110 MMOL/L (98-107); CHOLESTEROL LEVEL 105 MG/DL (<200); CHOLESTEROL RISK RATIO 2.01 (<5); CREATININE FOR GFR 0.98 MG/DL (0.55-1.30); GLOMERULAR FILTRATION RATE 59.2 (>39); GLUCOSE, FASTING 138 MG/DL (74-106); HDL CHOLESTEROL 52.2 MG/DL (>40); IRON (FE) 51 UG/DL (50-170); LDL CHOLESTEROL 37.8 MG/DL (<100); MAGNESIUM LEVEL 2.3 MG/DL (1.8-2.4); NON-HDL-C 52.8 MG/DL; PERCENT SATURATION 13.5 % (13.2-45.0); SODIUM LEVEL 140 MMOL/L (136-145); TOTAL IRON BINDING CAPACITY 379 UG/DL (250-425); TOTAL PROTEIN 6.5 G/DL (5.7-8.2); TRIGLYCERIDES LEVEL 75 MG/DL (<150)
[2023-03-14 13:34] LABS: THYROID STIMULATING HORMONE 2.068 uIU/ML (0.55-4.78); VITAMIN B12 LEVEL 487 PG/ML (211-911)
[2023-03-14 13:35] LABS: FOLATE 22.6 NG/ML (>5.4)
[2023-03-14 13:40] LABS: ERYTHROCYTE SEDIMENTATION RATE 51 mm/hr (0-30)
[2023-03-15 09:18] LABS: DRVV SCREEN 47.4 SEC
[2023-03-15 09:34] LABS: PTT LUPUS TYPE ANTICOAG SCREEN 1.3 (0-1.2)
[2023-03-15 09:42] LABS: LUPUS CONFIRM RATIO 1.2
[2023-03-15 09:51] LABS: NORMALIZED RATIO 1.08 (0.00-1.20)
== END ==
LOC: M SFHCADAM 08:43
PROVIDERS: ATTEND Physician Assistant Medical
DX: I12.9 Hypertensive chronic kidney disease with stage 1 through stage 4 chronic kidney disease, or unspecified chronic kidney disease (principal); N18.31 Chronic kidney disease, stage 3a; K76.0 Fatty (change of) liver, not elsewhere classified; E55.9 Vitamin D deficiency, unspecified; K31.819 Angiodysplasia of stomach and duodenum without bleeding; D50.0 Iron deficiency anemia secondary to blood loss (chronic); M25.50 Pain in unspecified joint

== ENCOUNTER → 2023-03-14 | Outpatient (REF) | payer BC, MEDICARE | LOC: M LABDRWAD 14:45 | PROVIDERS: ATTEND Internal Medicine Gastroenterology | DX: Q27.30 Arteriovenous malformation, site unspecified (principal); D50.9 Iron deficiency anemia, unspecified; I85.00 Esophageal varices without bleeding; R94.5 Abnormal results of liver function studies; K92.2 Gastrointestinal hemorrhage, unspecified ==

== ENCOUNTER → 2023-03-18 | Outpatient (CLI) | payer BC | LOC: M WHC 11:28 | PROVIDERS: ATTEND Obstetrics & Gynecology | DX: Z12.31 Encounter for screening mammogram for malignant neoplasm of breast (principal); Z13.820 Encounter for screening for osteoporosis ==

== ENCOUNTER → 2023-05-20 | Outpatient (CLI) | payer BC | LOC: M RAD 08:28 | PROVIDERS: ATTEND Nurse Practitioner Family | DX: K74.60 Unspecified cirrhosis of liver (principal); R94.5 Abnormal results of liver function studies; I85.00 Esophageal varices without bleeding; Q27.30 Arteriovenous malformation, site unspecified ==

== ENCOUNTER → 2023-06-05 | Outpatient (CLI) | payer BC ==
[2023-06-05 14:49] LABS: HEMATOCRIT 33.7 % (36.0-47.0); HEMOGLOBIN 11.1 g/dl (12.0-15.5); MEAN CORPUSCULAR HEMOGLOBIN 33.7 pg (27.0-33.0); MEAN CORPUSCULAR HGB CONC 32.9 g/dl (32.0-36.5); MEAN CORPUSCULAR VOLUME 102.4 fl (80.0-96.0); PLATELET COUNT, AUTOMATED 128 10^3/uL (150-450); RED BLOOD COUNT 3.29 10^6/uL (4.00-5.40); WHITE BLOOD COUNT 4.4 10^3/uL (4.0-10.0)
[2023-06-05 15:21] LABS: IRON (FE) 105 UG/DL (50-170); THYROID STIMULATING HORMONE 1.865 uIU/ML (0.55-4.78)
[2023-06-05 15:22] LABS: ALBUMIN 3.4 G/DL (3.2-5.2); ALKALINE PHOSPHATASE 164 U/L (46-116); ALT/SGPT 68 U/L (7.0-40); AST/SGOT 68 U/L (<34); BILIRUBIN,DIRECT 0.4 MG/DL (<0.4); BILIRUBIN,TOTAL 0.9 MG/DL (0.3-1.2); HEPATITIS B SURFACE ANTIBODY NEGATIVE (POSITIVE); PERCENT SATURATION 29.3 % (13.2-45.0); TOTAL IRON BINDING CAPACITY 358 UG/DL (250-425); TOTAL PROTEIN 6.5 G/DL (5.7-8.2)
[2023-06-05 15:23] LABS: FERRITIN 80.4 NG/ML (7.3-270.7)
[2023-06-05 15:53] LABS: HEPATITIS C VIRUS ABY INDEX 0.12 INDEX (<0.8)
[2023-06-05 17:02] LABS: STABLE ALKPHOS 80 U/L
[2023-06-05 17:03] LABS: % LABILE ALKALINE PHOSPHATASE 51.21 %; LABILE ALKPHOS 84 U/L
== END ==
LOC: M LABDRWAD 10:21
PROVIDERS: ATTEND Nurse Practitioner Family
DX: Q27.30 Arteriovenous malformation, site unspecified (principal); I85.00 Esophageal varices without bleeding; K74.60 Unspecified cirrhosis of liver; R94.5 Abnormal results of liver function studies

== ENCOUNTER → 2023-08-20 | Outpatient (CLI) | payer BC, MEDICARE | LOC: M PAIN 14:00 | PROVIDERS: ATTEND Nurse Practitioner Family | DX: M79.10 Myalgia, unspecified site (principal); G89.29 Other chronic pain; Z88.1 Allergy status to other antibiotic agents; Z88.6 Allergy status to analgesic agent; E66.01 Morbid (severe) obesity due to excess calories; Z68.41 Body mass index [BMI] 40.0-44.9, adult; Z79.84 Long term (current) use of oral hypoglycemic drugs; Z79.899 Other long term (current) drug therapy ==

== ENCOUNTER → 2023-08-28 | Outpatient (REF) | payer BC, MEDICARE ==
[2023-08-28 18:50] LABS: BASO % 0.4 % (0.0-1.0); EOS # 0.2 10^3/uL (0.0-0.5); EOS % 3.7 % (0.0-3.0); HEMATOCRIT 32.3 % (36.0-47.0); LYMPH # 1.5 10^3/uL (1.5-5.0); LYMPH % 31.9 % (24.0-44.0); MEAN CORPUSCULAR HGB CONC 34.1 g/dl (32.0-36.5); MEAN CORPUSCULAR VOLUME 102.9 fl (80.0-96.0); MONO # 0.6 10^3/uL (0.0-0.8); MONO % 13.3 % (2.0-8.0); NEUTROPHILS # 2.3 10^3/uL (1.5-8.5); NEUTROPHILS % 50.5 % (36.0-66.0); PLATELET COUNT, AUTOMATED 115 10^3/uL (150-450); RED BLOOD COUNT 3.14 10^6/uL (4.00-5.40); WHITE BLOOD COUNT 4.6 10^3/uL (4.0-10.0)
[2023-08-28 19:11] LABS: ALBUMIN 3.3 G/DL (3.2-5.2)
[2023-08-28 19:19] LABS: PERCENT SATURATION 22.4 % (13.2-45.0)
[2023-08-28 19:20] LABS: FERRITIN 53.7 NG/ML (7.3-270.7)
[2023-08-28 19:27] LABS: HEMOGLOBIN A1c 7.4 % (4.0-6.0)
== END ==
LOC: M LABDRWAD 17:15
PROVIDERS: ATTEND Orthopaedic Surgery
DX: Z01.812 Encounter for preprocedural laboratory examination (principal); M17.11 Unilateral primary osteoarthritis, right knee

== ENCOUNTER → 2023-10-07 | Outpatient (REF) | payer BC, MEDICARE ==
[2023-10-07 17:42] LABS: HEMATOCRIT 30.1 % (36.0-47.0); HEMOGLOBIN 9.8 g/dl (12.0-15.5); MEAN CORPUSCULAR HEMOGLOBIN 34.8 pg (27.0-33.0); MEAN CORPUSCULAR HGB CONC 32.6 g/dl (32.0-36.5); MEAN CORPUSCULAR VOLUME 106.7 fl (80.0-96.0); PLATELET COUNT, AUTOMATED 154 10^3/uL (150-450); RED BLOOD COUNT 2.82 10^6/uL (4.00-5.40); WHITE BLOOD COUNT 4.7 10^3/uL (4.0-10.0)
[2023-10-07 18:08] LABS: HEMOGLOBIN A1c 6.4 % (4.0-6.0)
[2023-10-07 18:10] LABS: ALBUMIN 3.5 G/DL (3.2-5.2); ALKALINE PHOSPHATASE 166 U/L (46-116); ALT/SGPT 29 U/L (7.0-40); AST/SGOT 37 U/L (<34); BILIRUBIN,TOTAL 0.6 MG/DL (0.3-1.2); BLOOD UREA NITROGEN 24 MG/DL (9-23); CALCIUM LEVEL 8.9 MG/DL (8.3-10.6); CARBON DIOXIDE LEVEL 25 MMOL/L (20-31); CHLORIDE LEVEL 105 MMOL/L (98-107); CHOLESTEROL LEVEL 101 MG/DL (<200); CHOLESTEROL RISK RATIO 2.64 (<5); CREATININE FOR GFR 0.93 MG/DL (0.55-1.30); GLOMERULAR FILTRATION RATE > 60.0 (>39); GLUCOSE, FASTING 179 MG/DL (74-106); HDL CHOLESTEROL 38.2 MG/DL (>40); LDL CHOLESTEROL 16.4 MG/DL (<100); NON-HDL-C 62.8 MG/DL; POTASSIUM SERUM 4.2 MMOL/L (3.5-5.1); SODIUM LEVEL 139 MMOL/L (136-145); THYROID STIMULATING HORMONE 1.684 uIU/ML (0.55-4.78); TOTAL PROTEIN 6.6 G/DL (5.7-8.2); TRIGLYCERIDES LEVEL 232 MG/DL (<150)
[2023-10-07 18:11] LABS: TOTAL 25(OH) VITAMIN D 75.8 NG/ML (20.0-100.0)
== END ==
LOC: M SFHCADAM 15:13
PROVIDERS: ATTEND Physician Assistant Medical
DX: E11.22 Type 2 diabetes mellitus with diabetic chronic kidney disease (principal); E55.9 Vitamin D deficiency, unspecified; K31.819 Angiodysplasia of stomach and duodenum without bleeding

== ENCOUNTER → 2023-11-11 | Outpatient (CLI) | payer BC, MEDICARE | LOC: M RAD 16:14 | PROVIDERS: ATTEND Nurse Practitioner Family | DX: M46.1 Sacroiliitis, not elsewhere classified (principal) ==

== ENCOUNTER → 2023-11-11 | Outpatient (CLI) | payer BC, MEDICARE | LOC: M PAIN 15:30 | PROVIDERS: ATTEND Nurse Practitioner Family | DX: M46.1 Sacroiliitis, not elsewhere classified (principal); G89.29 Other chronic pain; I48.91 Unspecified atrial fibrillation; I12.9 Hypertensive chronic kidney disease with stage 1 through stage 4 chronic kidney disease, or unspecified chronic kidney disease; E55.9 Vitamin D deficiency, unspecified; J45.20 Mild intermittent asthma, uncomplicated; L40.9 Psoriasis, unspecified; M54.50 Low back pain, unspecified; E11.22 Type 2 diabetes mellitus with diabetic chronic kidney disease; N18.30 Chronic kidney disease, stage 3 unspecified; Z79.84 Long term (current) use of oral hypoglycemic drugs; Z79.899 Other long term (current) drug therapy; Z88.1 Allergy status to other antibiotic agents; Z88.6 Allergy status to analgesic agent ==

== ENCOUNTER → 2023-11-21 | Outpatient (CLI) | payer BC | LOC: M RAD 14:18 | PROVIDERS: ATTEND Nurse Practitioner Family | DX: M46.1 Sacroiliitis, not elsewhere classified (principal) ==

== ENCOUNTER → 2023-11-26 | Outpatient (CLI) | payer BC, MEDICARE | LOC: M PAIN 15:00 | PROVIDERS: ATTEND Nurse Practitioner Family | DX: M46.1 Sacroiliitis, not elsewhere classified (principal); G89.29 Other chronic pain; M54.50 Low back pain, unspecified; Z96.651 Presence of right artificial knee joint; I48.91 Unspecified atrial fibrillation; I10 Essential (primary) hypertension; E55.9 Vitamin D deficiency, unspecified; J45.20 Mild intermittent asthma, uncomplicated; M19.90 Unspecified osteoarthritis, unspecified site; L40.9 Psoriasis, unspecified; E11.9 Type 2 diabetes mellitus without complications; Z79.84 Long term (current) use of oral hypoglycemic drugs; Z79.899 Other long term (current) drug therapy; Z88.1 Allergy status to other antibiotic agents; Z88.6 Allergy status to analgesic agent; Z79.01 Long term (current) use of anticoagulants ==

== ENCOUNTER → 2023-12-03 | Outpatient (CLI) | payer BC ==
[2023-12-03 13:25] LABS: HEMATOCRIT 34.5 % (36.0-47.0); HEMOGLOBIN 11.4 g/dl (12.0-15.5); MEAN CORPUSCULAR HEMOGLOBIN 34.2 pg (27.0-33.0); MEAN CORPUSCULAR VOLUME 103.6 fl (80.0-96.0); PLATELET COUNT, AUTOMATED 118 10^3/uL (150-450); RED BLOOD COUNT 3.33 10^6/uL (4.00-5.40); WHITE BLOOD COUNT 5.3 10^3/uL (4.0-10.0)
[2023-12-03 13:34] LABS: FERRITIN 49.4 NG/ML (7.3-270.7); FOLATE > 24.00 NG/ML (>5.4)
[2023-12-03 13:37] LABS: IRON (FE) 73 UG/DL (50-170); VITAMIN B12 LEVEL 720 PG/ML (211-911)
[2023-12-03 13:41] LABS: PERCENT SATURATION 20.6 % (13.2-45.0); TOTAL IRON BINDING CAPACITY 355 UG/DL (250-425)
== END ==
LOC: M RAD 08:45
PROVIDERS: ATTEND Nurse Practitioner Family
DX: K74.60 Unspecified cirrhosis of liver (principal); K80.20 Calculus of gallbladder without cholecystitis without obstruction; Q27.30 Arteriovenous malformation, site unspecified; E83.00 Disorder of copper metabolism, unspecified; D64.9 Anemia, unspecified

== ENCOUNTER → 2024-02-04 | Outpatient (REF) | payer BC, MEDICARE ==
[2024-02-04 13:49] LABS: BASO % 0.9 % (0.0-1.0); EOS # 0.2 10^3/uL (0.0-0.5); EOS % 4.8 % (0.0-3.0); HEMOGLOBIN 10.7 g/dl (12.0-15.5); LYMPH # 1.3 10^3/uL (1.5-5.0); LYMPH % 28.8 % (24.0-44.0); MEAN CORPUSCULAR HGB CONC 33.4 g/dl (32.0-36.5); MEAN CORPUSCULAR VOLUME 104.6 fl (80.0-96.0); MONO # 0.7 10^3/uL (0.0-0.8); MONO % 14.2 % (2.0-8.0); NEUTROPHILS # 2.4 10^3/uL (1.5-8.5); NEUTROPHILS % 51.1 % (36.0-66.0); PLATELET COUNT, AUTOMATED 121 10^3/uL (150-450); RED BLOOD COUNT 3.06 10^6/uL (4.00-5.40); WHITE BLOOD COUNT 4.6 10^3/uL (4.0-10.0)
[2024-02-04 13:54] LABS: THYROID STIMULATING HORMONE 2.03 uIU/ML (0.55-4.78)
[2024-02-04 13:58] LABS: ALBUMIN 3.1 G/DL (3.2-5.2); BILIRUBIN,TOTAL 0.9 MG/DL (0.3-1.2); CALCIUM LEVEL 8.7 MG/DL (8.3-10.6); CHOLESTEROL RISK RATIO 2.35 (<5); CREATININE FOR GFR 1.07 MG/DL (0.55-1.30); GLOMERULAR FILTRATION RATE 53.4 (>39); HDL CHOLESTEROL 45.8 MG/DL (>40); NON-HDL-C 62.2 MG/DL; POTASSIUM SERUM 4.5 MMOL/L (3.5-5.1); TOTAL 25(OH) VITAMIN D 65.5 NG/ML (20.0-100.0); TOTAL PROTEIN 6.6 G/DL (5.7-8.2)
[2024-02-04 14:16] LABS: CREATININE, URINE 195.2 MG/DL
[2024-02-04 14:26] LABS: HEMOGLOBIN A1c 7.3 % (4.0-6.0)
== END ==
LOC: M SFHCADAM 09:25
PROVIDERS: ATTEND Physician Assistant Medical
DX: N18.31 Chronic kidney disease, stage 3a (principal); E11.22 Type 2 diabetes mellitus with diabetic chronic kidney disease; E66.01 Morbid (severe) obesity due to excess calories; E55.9 Vitamin D deficiency, unspecified

== ENCOUNTER → 2024-02-13 | Outpatient (CLI) | payer BC, MEDICARE ==
[~2024-02-13] MED LIST changes: +ISOVUE-M 300 61% 15ML VIAL As Ordered ONE; +LIDOCAINE 1% SDV 30ML VIAL As Ordered ONE; +TRIAMCINOLONE ACETONIDE SUSP 40MG/ML 1ML VIAL As Ordered ONE; +diazePAM 2 MG TAB As Ordered ONE; +oxyCODONE 5MG TAB As Ordered ONE
== END ==
LOC: M PAIN 08:35
PROVIDERS: ATTEND Anesthesiology
DX: M53.3 Sacrococcygeal disorders, not elsewhere classified (principal); I48.91 Unspecified atrial fibrillation; I12.9 Hypertensive chronic kidney disease with stage 1 through stage 4 chronic kidney disease, or unspecified chronic kidney disease; I87.2 Venous insufficiency (chronic) (peripheral); E55.9 Vitamin D deficiency, unspecified; J45.20 Mild intermittent asthma, uncomplicated; M19.90 Unspecified osteoarthritis, unspecified site; L40.9 Psoriasis, unspecified; M54.50 Low back pain, unspecified; G89.29 Other chronic pain; E11.22 Type 2 diabetes mellitus with diabetic chronic kidney disease; N18.30 Chronic kidney disease, stage 3 unspecified; Z79.84 Long term (current) use of oral hypoglycemic drugs; Z79.899 Other long term (current) drug therapy; Z88.1 Allergy status to other antibiotic agents; Z88.6 Allergy status to analgesic agent
CPT/HCPCS: G0260; J0665; J3301; Q9967

== ENCOUNTER → 2024-03-16 | Outpatient (CLI) | payer BC, MEDICARE ==
[~2024-03-16] MED LIST changes: -ISOVUE-M 300 61% 15ML VIAL As Ordered ONE; -LIDOCAINE 1% SDV 30ML VIAL As Ordered ONE; -TRIAMCINOLONE ACETONIDE SUSP 40MG/ML 1ML VIAL As Ordered ONE; -diazePAM 2 MG TAB As Ordered ONE; -oxyCODONE 5MG TAB As Ordered ONE
== END ==
LOC: M PAIN 15:00
PROVIDERS: ATTEND Nurse Practitioner Family
DX: M79.18 Myalgia, other site (principal); E11.9 Type 2 diabetes mellitus without complications; I48.91 Unspecified atrial fibrillation; I10 Essential (primary) hypertension; Z79.02 Long term (current) use of antithrombotics/antiplatelets; Z79.82 Long term (current) use of aspirin; Z79.84 Long term (current) use of oral hypoglycemic drugs; Z79.899 Other long term (current) drug therapy; Z88.2 Allergy status to sulfonamides; Z88.6 Allergy status to analgesic agent

== ENCOUNTER → 2024-03-20 | Outpatient (CLI) | payer BC | LOC: M WHC 11:49 | PROVIDERS: ATTEND Obstetrics & Gynecology | DX: Z12.31 Encounter for screening mammogram for malignant neoplasm of breast (principal) ==

== ENCOUNTER → 2024-04-20 | Outpatient (CLI) | payer BC ==
[2024-04-20 15:47] LABS: ALBUMIN 3.5 G/DL (3.2-5.2)
[2024-04-20 15:50] LABS: BASO % 0.7 % (0.0-1.0); EOS # 0.3 10^3/uL (0.0-0.5); HEMATOCRIT 33.1 % (36.0-47.0); HEMOGLOBIN 10.9 g/dl (12.0-15.5); LYMPH # 1.4 10^3/uL (1.5-5.0); LYMPH % 31.2 % (24.0-44.0); MEAN CORPUSCULAR HEMOGLOBIN 34.4 pg (27.0-33.0); MEAN CORPUSCULAR HGB CONC 32.9 g/dl (32.0-36.5); MEAN CORPUSCULAR VOLUME 104.4 fl (80.0-96.0); MONO # 0.6 10^3/uL (0.0-0.8); MONO % 13.8 % (2.0-8.0); NEUTROPHILS # 2.1 10^3/uL (1.5-8.5); NEUTROPHILS % 48.3 % (36.0-66.0); PLATELET COUNT, AUTOMATED 105 10^3/uL (150-450); RED BLOOD COUNT 3.17 10^6/uL (4.00-5.40); WHITE BLOOD COUNT 4.4 10^3/uL (4.0-10.0)
[2024-04-20 15:54] LABS: FERRITIN 53.2 NG/ML (7.3-270.7); PERCENT SATURATION 32.2 % (13.2-45.0)
[2024-04-20 17:19] LABS: HEMOGLOBIN A1c 7.4 % (4.0-6.0)
== END ==
LOC: M PLALAB 09:49
PROVIDERS: ATTEND Orthopaedic Surgery
DX: M25.562 Pain in left knee (principal)

== ENCOUNTER → 2024-05-15 | Outpatient (CLI) | payer BC, MEDICARE ==
[~2024-05-15] MED LIST changes: +NORCO, ANEXSIA 5/325MG TABLET (HYDROcodone/ACETAMINOPHEN) As Ordered ONE; +TRIAMCINOLONE ACETONIDE SUSP 40MG/ML 1ML VIAL As Ordered ONE
== END ==
LOC: M PAIN 16:00
PROVIDERS: ATTEND Anesthesiology
DX: M79.18 Myalgia, other site (principal); G89.29 Other chronic pain; I48.91 Unspecified atrial fibrillation; I12.9 Hypertensive chronic kidney disease with stage 1 through stage 4 chronic kidney disease, or unspecified chronic kidney disease; E55.9 Vitamin D deficiency, unspecified; J45.20 Mild intermittent asthma, uncomplicated; M19.90 Unspecified osteoarthritis, unspecified site; L40.9 Psoriasis, unspecified; M54.50 Low back pain, unspecified; E11.22 Type 2 diabetes mellitus with diabetic chronic kidney disease; N18.30 Chronic kidney disease, stage 3 unspecified; Z79.84 Long term (current) use of oral hypoglycemic drugs; Z79.899 Other long term (current) drug therapy; Z88.1 Allergy status to other antibiotic agents; Z88.6 Allergy status to analgesic agent
CPT/HCPCS: 20552; J0665; J3301

== ENCOUNTER → 2024-06-15 | Outpatient (CLI) | payer BC, MEDICARE ==
[~2024-06-15] MED LIST changes: -NORCO, ANEXSIA 5/325MG TABLET (HYDROcodone/ACETAMINOPHEN) As Ordered ONE; -TRIAMCINOLONE ACETONIDE SUSP 40MG/ML 1ML VIAL As Ordered ONE
== END ==
LOC: M PAIN 14:45
PROVIDERS: ATTEND Nurse Practitioner Family
DX: G89.29 Other chronic pain (principal); M79.18 Myalgia, other site; I48.91 Unspecified atrial fibrillation; I12.9 Hypertensive chronic kidney disease with stage 1 through stage 4 chronic kidney disease, or unspecified chronic kidney disease; E55.9 Vitamin D deficiency, unspecified; J45.20 Mild intermittent asthma, uncomplicated; M19.90 Unspecified osteoarthritis, unspecified site; L40.9 Psoriasis, unspecified; M54.50 Low back pain, unspecified; E11.22 Type 2 diabetes mellitus with diabetic chronic kidney disease; N18.30 Chronic kidney disease, stage 3 unspecified; Z79.84 Long term (current) use of oral hypoglycemic drugs; Z79.899 Other long term (current) drug therapy; Z88.1 Allergy status to other antibiotic agents; Z88.6 Allergy status to analgesic agent

== ENCOUNTER → 2024-06-26 | Outpatient (CLI) | payer BC, MEDICARE | LOC: M WHC 07:20 | PROVIDERS: ATTEND Physician Assistant | DX: K74.60 Unspecified cirrhosis of liver (principal); Q27.30 Arteriovenous malformation, site unspecified; I85.00 Esophageal varices without bleeding; K82.8 Other specified diseases of gallbladder ==

== ENCOUNTER → 2024-07-09 | Outpatient (CLI) | payer BC, MEDICARE ==
[2024-07-09 15:13] LABS: BASO % 0.7 % (0.0-1.0); EOS # 0.1 10^3/uL (0.0-0.5); EOS % 2.8 % (0.0-3.0); HEMATOCRIT 32.9 % (36.0-47.0); HEMOGLOBIN 11.1 g/dl (12.0-15.5); LYMPH # 1.1 10^3/uL (1.5-5.0); MEAN CORPUSCULAR HEMOGLOBIN 35.7 pg (27.0-33.0); MEAN CORPUSCULAR HGB CONC 33.7 g/dl (32.0-36.5); MEAN CORPUSCULAR VOLUME 105.8 fl (80.0-96.0); MONO # 0.6 10^3/uL (0.0-0.8); MONO % 13.7 % (2.0-8.0); NEUTROPHILS # 2.4 10^3/uL (1.5-8.5); NEUTROPHILS % 55.6 % (36.0-66.0); PLATELET COUNT, AUTOMATED 105 10^3/uL (150-450); RED BLOOD COUNT 3.11 10^6/uL (4.00-5.40); WHITE BLOOD COUNT 4.2 10^3/uL (4.0-10.0)
[2024-07-09 15:14] LABS: INR 1.46; PARTIAL THROMBOPLASTIN TIME 34.7 SECONDS (24.8-34.2); PROTHROMBIN TIME 17.3 SECONDS (12.5-14.5)
[2024-07-09 15:27] LABS: HEMOGLOBIN A1c 7.7 % (4.0-6.0)
[2024-07-09 15:39] LABS: CREATININE, URINE 14.2 MG/DL; MALB URINE SIEMENS < 3.0 MG/L; MAU/CREAT RATIO 21.1 MCG/MG (0.0-30.0)
[2024-07-09 15:41] LABS: ALBUMIN 3.3 G/DL (3.2-5.2); BILIRUBIN,TOTAL 0.8 MG/DL (0.3-1.2); CALCIUM LEVEL 9.3 MG/DL (8.3-10.6); CHOLESTEROL RISK RATIO 2.25 (<5); CREATININE FOR GFR 0.97 MG/DL (0.55-1.30); GLOMERULAR FILTRATION RATE 59.6 (>39); HDL CHOLESTEROL 50.2 MG/DL (>40); LDL CHOLESTEROL 42.4 MG/DL (<100); NON-HDL-C 62.8 MG/DL; PERCENT SATURATION 35.5 % (13.2-45.0); POTASSIUM SERUM 4.8 MMOL/L (3.5-5.1); TOTAL PROTEIN 6.6 G/DL (5.7-8.2)
[2024-07-09 15:42] LABS: THYROID STIMULATING HORMONE 1.363 uIU/ML (0.55-4.78); TOTAL 25(OH) VITAMIN D 69.2 NG/ML (20.0-100.0)
[2024-07-09 15:43] LABS: FERRITIN 54.8 NG/ML (7.3-270.7); FOLATE 23.8 NG/ML (>5.4)
== END ==
LOC: M PLALAB 12:01
PROVIDERS: ATTEND Family Medicine
DX: N18.31 Chronic kidney disease, stage 3a (principal); E11.22 Type 2 diabetes mellitus with diabetic chronic kidney disease; E55.9 Vitamin D deficiency, unspecified; E66.01 Morbid (severe) obesity due to excess calories; K74.60 Unspecified cirrhosis of liver

== ENCOUNTER → 2024-07-13 | Outpatient (CLI) | payer BC, MEDICARE | LOC: M RAD 12:27 | PROVIDERS: ATTEND Registered Nurse | DX: L03.116 Cellulitis of left lower limb (principal) ==

== ENCOUNTER → 2024-07-29 | Outpatient (REF) | payer BC ==
[2024-07-29 14:06] LABS: ALBUMIN 3.1 G/DL (3.2-5.2); BILIRUBIN,TOTAL 0.8 MG/DL (0.3-1.2); CALCIUM LEVEL 8.9 MG/DL (8.3-10.6); GLOMERULAR FILTRATION RATE 57.5 (>39); POTASSIUM SERUM 4.6 MMOL/L (3.5-5.1); TOTAL PROTEIN 6.1 G/DL (5.7-8.2)
== END ==
LOC: M LABDRWAD 13:03
PROVIDERS: ATTEND Registered Nurse
DX: L03.116 Cellulitis of left lower limb (principal); I50.20 Unspecified systolic (congestive) heart failure

== ENCOUNTER → 2024-08-05 | Outpatient (REF) | payer BC ==
[2024-08-05 13:19] LABS: INR 1.35
== END ==
LOC: M LABDRWAD 12:44
PROVIDERS: ATTEND Physician Assistant
DX: Q27.30 Arteriovenous malformation, site unspecified (principal); K74.60 Unspecified cirrhosis of liver; I85.00 Esophageal varices without bleeding

== ENCOUNTER → 2024-08-19 | Outpatient (REF) | payer BC, MEDICARE ==
[2024-08-19 17:38] LABS: BASO % 0.8 % (0.0-1.0); EOS # 0.2 10^3/uL (0.0-0.5); EOS % 4.6 % (0.0-3.0); HEMATOCRIT 25.3 % (36.0-47.0); HEMOGLOBIN 8.2 g/dl (12.0-15.5); LYMPH % 27.4 % (24.0-44.0); MEAN CORPUSCULAR HEMOGLOBIN 34.6 pg (27.0-33.0); MEAN CORPUSCULAR HGB CONC 32.4 g/dl (32.0-36.5); MEAN CORPUSCULAR VOLUME 106.8 fl (80.0-96.0); MONO # 0.6 10^3/uL (0.0-0.8); MONO % 14.9 % (2.0-8.0); NEUTROPHILS # 1.9 10^3/uL (1.5-8.5); PLATELET COUNT, AUTOMATED 125 10^3/uL (150-450); RED BLOOD COUNT 2.37 10^6/uL (4.00-5.40); WHITE BLOOD COUNT 3.7 10^3/uL (4.0-10.0)
[2024-08-19 17:50] LABS: INR 1.45; PARTIAL THROMBOPLASTIN TIME 34.9 SECONDS (24.8-34.2); PROTHROMBIN TIME 17.9 SECONDS (12.5-14.5)
[2024-08-19 18:07] LABS: BILIRUBIN,TOTAL 0.7 MG/DL (0.3-1.2); CALCIUM LEVEL 8.7 MG/DL (8.3-10.6); CREATININE FOR GFR 1.1 MG/DL (0.55-1.30); GLOMERULAR FILTRATION RATE 51.5 (>39); POTASSIUM SERUM 4.6 MMOL/L (3.5-5.1)
== END ==
LOC: M SFHCADAM 14:01
PROVIDERS: ATTEND Physician Assistant Medical
DX: Z01.818 Encounter for other preprocedural examination (principal)

== ENCOUNTER → 2024-08-24 | Outpatient (CLI) | payer BC ==
[2024-08-24 12:51] LABS: HEMATOCRIT 25.7 % (36.0-47.0); HEMOGLOBIN 8.1 g/dl (12.0-15.5); MEAN CORPUSCULAR HEMOGLOBIN 34.3 pg (27.0-33.0); MEAN CORPUSCULAR HGB CONC 31.5 g/dl (32.0-36.5); MEAN CORPUSCULAR VOLUME 108.9 fl (80.0-96.0); PLATELET COUNT, AUTOMATED 116 10^3/uL (150-450); RED BLOOD COUNT 2.36 10^6/uL (4.00-5.40); WHITE BLOOD COUNT 7.9 10^3/uL (4.0-10.0)
== END ==
LOC: M PLALAB 09:54
PROVIDERS: ATTEND Physician Assistant Medical
DX: D64.9 Anemia, unspecified (principal); K31.819 Angiodysplasia of stomach and duodenum without bleeding

== ENCOUNTER → 2024-09-01 | Outpatient (REF) | payer BC, MEDICARE ==
[2024-09-01 13:52] LABS: BASO % 0.6 % (0.0-1.0); EOS # 0.2 10^3/uL (0.0-0.5); EOS % 5.6 % (0.0-3.0); HEMATOCRIT 23.8 % (36.0-47.0); HEMOGLOBIN 7.4 g/dl (12.0-15.5); MEAN CORPUSCULAR HEMOGLOBIN 33.9 pg (27.0-33.0); MEAN CORPUSCULAR HGB CONC 31.1 g/dl (32.0-36.5); MEAN CORPUSCULAR VOLUME 109.2 fl (80.0-96.0); MONO # 0.6 10^3/uL (0.0-0.8); MONO % 16.4 % (2.0-8.0); NEUTROPHILS # 1.6 10^3/uL (1.5-8.5); NEUTROPHILS % 47.8 % (36.0-66.0); PLATELET COUNT, AUTOMATED 126 10^3/uL (150-450); RED BLOOD COUNT 2.18 10^6/uL (4.00-5.40); WHITE BLOOD COUNT 3.4 10^3/uL (4.0-10.0)
== END ==
LOC: M SFHCADAM 09:22
PROVIDERS: ATTEND Physician Assistant Medical
DX: D64.9 Anemia, unspecified (principal)

== ENCOUNTER → 2024-09-02 | Outpatient (REF) | payer BC | LOC: M LABDRWAD 17:24 | PROVIDERS: ATTEND Physician Assistant Medical | DX: D64.9 Anemia, unspecified (principal) ==

== ENCOUNTER 2024-09-03 10:40 | Outpatient (CLI) | payer BC ==
[~2024-09-03] VITALS: Ht 162.6 cm; Wt 109.0 kg
[2024-09-03 10:55] VITALS: BP 152/67; O2SAT 98
[2024-09-03] MEDS ORDERED: diphenhydrAMINE 25MG PO PRIOR TO INFUSION PO ONE (11:10)
[2024-09-03] MEDS ORDERED: ACETAMINOPHEN 500 MG TAB PO ONE (11:10)
[2024-09-03 12:00] VITALS: BP 143/63; TEMP 97.3; O2SAT 97
[2024-09-03 13:15] VITALS: BP 176/76; TEMP 98; O2SAT 97
[2024-09-03 13:35] VITALS: BP 174/78; O2SAT 98
== END 2024-09-03 13:35 ==
LOC: M INFU 10:40
PROVIDERS: ATTEND Physician Assistant Medical
DX: D64.9 Anemia, unspecified (principal); Z88.8 Allergy status to other drugs, medicaments and biological substances; Z88.1 Allergy status to other antibiotic agents; Z88.6 Allergy status to analgesic agent
CPT/HCPCS: 36430; P9016

== ENCOUNTER → 2024-09-14 | Outpatient (CLI) | payer BC, MEDICARE | LOC: M PAIN 14:30 | PROVIDERS: ATTEND Nurse Practitioner Family | DX: M79.18 Myalgia, other site (principal); G89.29 Other chronic pain; I48.91 Unspecified atrial fibrillation; E11.22 Type 2 diabetes mellitus with diabetic chronic kidney disease; E55.9 Vitamin D deficiency, unspecified; I87.2 Venous insufficiency (chronic) (peripheral); J45.20 Mild intermittent asthma, uncomplicated; M19.90 Unspecified osteoarthritis, unspecified site; L40.9 Psoriasis, unspecified; M54.50 Low back pain, unspecified; N18.30 Chronic kidney disease, stage 3 unspecified; Z79.84 Long term (current) use of oral hypoglycemic drugs; Z79.899 Other long term (current) drug therapy; Z88.1 Allergy status to other antibiotic agents; Z88.6 Allergy status to analgesic agent ==

== ENCOUNTER 2024-09-28 15:30 | Outpatient (CLI) | payer BC ==
[~2024-09-28] VITALS: Ht 162.6 cm; Wt 109.0 kg
[2024-09-28] VITALS (11 sets, daily range): BP systolic 120–145; BP diastolic 57–80; TEMP 97.3–98.4; O2SAT 98–100
[2024-09-28] MEDS ORDERED: NS (Normal Saline) 0.9% 250 ML IV ONE (16:30)
[2024-09-28] MEDS: diphenhydrAMINE 25MG CAP PO ONE (16:45)
[2024-09-29 00:42] LABS: HEMATOCRIT 24.7 % (36.0-47.0); HEMOGLOBIN 8.1 g/dl (12.0-15.5); MEAN CORPUSCULAR HEMOGLOBIN 32.9 pg (27.0-33.0); MEAN CORPUSCULAR HGB CONC 32.8 g/dl (32.0-36.5); MEAN CORPUSCULAR VOLUME 100.4 fl (80.0-96.0); PLATELET COUNT, AUTOMATED 116 10^3/uL (150-450); RED BLOOD COUNT 2.46 10^6/uL (4.00-5.40); WHITE BLOOD COUNT 3.9 10^3/uL (4.0-10.0)
== END 2024-09-28 23:44 ==
LOC: M INFU 15:30
PROVIDERS: ATTEND Family Medicine
DX: D64.9 Anemia, unspecified (principal)
CPT/HCPCS: 36415; 36430; 85027; P9016

== ENCOUNTER → 2024-09-28 | Outpatient (REF) | payer BC, MEDICARE ==
[2024-09-28 13:11] LABS: HEMATOCRIT 21.7 % (36.0-47.0); MEAN CORPUSCULAR VOLUME 110.2 fl (80.0-96.0); PLATELET COUNT, AUTOMATED 128 10^3/uL (150-450); RED BLOOD COUNT 1.97 10^6/uL (4.00-5.40)
[2024-09-28 13:12] LABS: HEMOGLOBIN 6.5 g/dl (12.0-15.5)
== END ==
LOC: M SFHCADAM 09:22
PROVIDERS: ATTEND Physician Assistant Medical
DX: D64.9 Anemia, unspecified (principal); D63.8 Anemia in other chronic diseases classified elsewhere

== ENCOUNTER → 2024-09-28 | Outpatient (CLI) | payer BC, MEDICARE | LOC: M LAB 14:56 | PROVIDERS: ATTEND Family Medicine | DX: D64.9 Anemia, unspecified (principal) ==

== ENCOUNTER → 2024-10-05 | Outpatient (REF) | payer BC ==
[2024-10-05 14:44] LABS: HEMATOCRIT 23.7 % (36.0-47.0); HEMOGLOBIN 7.2 g/dl (12.0-15.5); MEAN CORPUSCULAR HEMOGLOBIN 32.6 pg (27.0-33.0); MEAN CORPUSCULAR HGB CONC 30.4 g/dl (32.0-36.5); MEAN CORPUSCULAR VOLUME 107.2 fl (80.0-96.0); PLATELET COUNT, AUTOMATED 148 10^3/uL (150-450); RED BLOOD COUNT 2.21 10^6/uL (4.00-5.40)
== END ==
LOC: M LABDRWAD 12:59
PROVIDERS: ATTEND Internal Medicine Gastroenterology
DX: K31.7 Polyp of stomach and duodenum (principal); I85.00 Esophageal varices without bleeding; K25.9 Gastric ulcer, unspecified as acute or chronic, without hemorrhage or perforation; K21.9 Gastro-esophageal reflux disease without esophagitis

== ENCOUNTER → 2024-10-08 | Outpatient (CLI) | payer BC ==
[~2024-10-08] VITALS: Ht 162.6 cm; Wt 109.0 kg
[2024-10-08] MEDS: diphenhydrAMINE 25MG CAP PO ONE (12:54)
[2024-10-08 12:55] VITALS: BP 124/51; O2SAT 100
[2024-10-08 14:40] VITALS: BP 157/67; TEMP 97.6; O2SAT 98
== END ==
LOC: M INFU 12:47
PROVIDERS: ATTEND Physician Assistant Medical
DX: D64.9 Anemia, unspecified (principal); Z88.1 Allergy status to other antibiotic agents; Z88.6 Allergy status to analgesic agent; Z88.8 Allergy status to other drugs, medicaments and biological substances
CPT/HCPCS: 36430; P9016

== ENCOUNTER → 2024-10-08 | Outpatient (CLI) | payer BC | LOC: M LAB 09:44 | PROVIDERS: ATTEND Physician Assistant Medical | DX: D64.9 Anemia, unspecified (principal) ==

== ENCOUNTER → 2024-10-12 | Outpatient (REF) | payer BC, MEDICARE ==
[2024-10-12 13:02] LABS: BASO % 0.8 % (0.0-1.0); EOS # 0.2 10^3/uL (0.0-0.5); EOS % 6.5 % (0.0-3.0); HEMATOCRIT 24.2 % (36.0-47.0); HEMOGLOBIN 7.3 g/dl (12.0-15.5); LYMPH # 1.1 10^3/uL (1.5-5.0); LYMPH % 31.9 % (24.0-44.0); MEAN CORPUSCULAR HEMOGLOBIN 32.4 pg (27.0-33.0); MEAN CORPUSCULAR HGB CONC 30.2 g/dl (32.0-36.5); MEAN CORPUSCULAR VOLUME 107.6 fl (80.0-96.0); MONO # 0.6 10^3/uL (0.0-0.8); MONO % 15.5 % (2.0-8.0); NEUTROPHILS # 1.6 10^3/uL (1.5-8.5); PLATELET COUNT, AUTOMATED 136 10^3/uL (150-450); RED BLOOD COUNT 2.25 10^6/uL (4.00-5.40); WHITE BLOOD COUNT 3.5 10^3/uL (4.0-10.0)
== END ==
LOC: M SFHCADAM 09:16
PROVIDERS: ATTEND Physician Assistant Medical
DX: D64.9 Anemia, unspecified (principal)

== ENCOUNTER → 2024-10-13 | Outpatient (CLI) | payer BC, MEDICARE | LOC: M LAB 14:19 | PROVIDERS: ATTEND Physician Assistant Medical | DX: D64.9 Anemia, unspecified (principal) ==

== ENCOUNTER 2024-10-14 14:10 | Outpatient (CLI) | payer BC ==
[~2024-10-14] VITALS: Ht 162.6 cm; Wt 109.0 kg
[2024-10-14] MEDS: diphenhydrAMINE 25MG CAP PO ONE (14:21)
[2024-10-14] MEDS ORDERED: NS (Normal Saline) 0.9% 250 ML IV ONE (14:30)
[2024-10-14 14:39] VITALS: BP 138/62; TEMP 97.9; O2SAT 98
[2024-10-14 15:00] VITALS: BP 132/80; TEMP 98; O2SAT 96
[2024-10-14 16:00] VITALS: BP 145/72; TEMP 98; O2SAT 97
[2024-10-14 16:30] VITALS: BP 144/72; TEMP 97.8; O2SAT 97
== END 2024-10-14 16:50 ==
LOC: M INFU 14:10
PROVIDERS: ATTEND Physician Assistant Medical
DX: D64.9 Anemia, unspecified (principal); Z88.1 Allergy status to other antibiotic agents; Z88.6 Allergy status to analgesic agent
CPT/HCPCS: 36430; P9016

== ENCOUNTER → 2024-10-19 | Outpatient (CLI) | payer BC ==
[2024-10-19 14:28] LABS: HEMATOCRIT 24.6 % (36.0-47.0); HEMOGLOBIN 7.3 g/dl (12.0-15.5); MEAN CORPUSCULAR HEMOGLOBIN 32.2 pg (27.0-33.0); MEAN CORPUSCULAR HGB CONC 29.7 g/dl (32.0-36.5); MEAN CORPUSCULAR VOLUME 108.4 fl (80.0-96.0); PLATELET COUNT, AUTOMATED 139 10^3/uL (150-450); RED BLOOD COUNT 2.27 10^6/uL (4.00-5.40); WHITE BLOOD COUNT 3.4 10^3/uL (4.0-10.0)
== END ==
LOC: M LABDRWAD 09:59
PROVIDERS: ATTEND Physician Assistant Medical
DX: K31.819 Angiodysplasia of stomach and duodenum without bleeding (principal)

== ENCOUNTER → 2024-10-22 | Outpatient (CLI) | payer BC, MEDICARE ==
[~2024-10-22] MED LIST changes: +NORCO, ANEXSIA 5/325MG TABLET (HYDROcodone/ACETAMINOPHEN) As Ordered ONE; +TRIAMCINOLONE ACETONIDE SUSP 40MG/ML 1ML VIAL As Ordered ONE
== END ==
LOC: M PAIN 11:00
PROVIDERS: ATTEND Anesthesiology
DX: M79.18 Myalgia, other site (principal); G89.29 Other chronic pain; M54.50 Low back pain, unspecified; N18.30 Chronic kidney disease, stage 3 unspecified; I48.91 Unspecified atrial fibrillation; J45.20 Mild intermittent asthma, uncomplicated; E11.22 Type 2 diabetes mellitus with diabetic chronic kidney disease; Z88.6 Allergy status to analgesic agent; Z88.1 Allergy status to other antibiotic agents; Z79.84 Long term (current) use of oral hypoglycemic drugs; Z79.51 Long term (current) use of inhaled steroids; Z79.899 Other long term (current) drug therapy
CPT/HCPCS: 20552; J0665; J3301

== ENCOUNTER → 2024-10-22 | Outpatient (CLI) | payer BC ==
[~2024-10-22] MED LIST changes: -NORCO, ANEXSIA 5/325MG TABLET (HYDROcodone/ACETAMINOPHEN) As Ordered ONE; -TRIAMCINOLONE ACETONIDE SUSP 40MG/ML 1ML VIAL As Ordered ONE
== END ==
LOC: M LAB 10:20
PROVIDERS: ATTEND Physician Assistant Medical
DX: D64.9 Anemia, unspecified (principal)

== ENCOUNTER 2024-10-23 09:00 | Outpatient (CLI) | payer BC ==
[~2024-10-23] VITALS: Ht 162.6 cm; Wt 109.0 kg
[2024-10-23 09:00] VITALS: BP 170/76; O2SAT 96
[2024-10-23] MEDS: diphenhydrAMINE 25MG CAP PO ONE (09:13)
[2024-10-23] MEDS ORDERED: NS (Normal Saline) 0.9% 250 ML IV ONE (09:30)
[2024-10-23 09:54] VITALS: BP 117/57; TEMP 96.2; O2SAT 96
[2024-10-23 10:45] VITALS: BP 144/76; TEMP 98; O2SAT 99
[2024-10-23 11:24] VITALS: BP 160/80; O2SAT 99
== END 2024-10-23 11:25 ==
LOC: M INFU 09:00
PROVIDERS: ATTEND Physician Assistant Medical
DX: D64.9 Anemia, unspecified (principal); Z88.1 Allergy status to other antibiotic agents; Z88.6 Allergy status to analgesic agent; Z88.8 Allergy status to other drugs, medicaments and biological substances
CPT/HCPCS: 36430; P9016

== ENCOUNTER → 2024-10-26 | Outpatient (REF) | payer BC, MEDICARE ==
[2024-10-26 14:30] LABS: HEMATOCRIT 26.5 % (36.0-47.0); HEMOGLOBIN 8.1 g/dl (12.0-15.5); MEAN CORPUSCULAR HEMOGLOBIN 33.3 pg (27.0-33.0); MEAN CORPUSCULAR HGB CONC 30.6 g/dl (32.0-36.5); MEAN CORPUSCULAR VOLUME 109.1 fl (80.0-96.0); PLATELET COUNT, AUTOMATED 154 10^3/uL (150-450); RED BLOOD COUNT 2.43 10^6/uL (4.00-5.40); WHITE BLOOD COUNT 5.1 10^3/uL (4.0-10.0)
== END ==
LOC: M SFHCADAM 09:15
PROVIDERS: ATTEND Physician Assistant Medical
DX: K31.819 Angiodysplasia of stomach and duodenum without bleeding (principal)

== ENCOUNTER → 2024-11-02 | Outpatient (REF) | payer BC, MEDICARE ==
[2024-11-02 13:01] LABS: HEMATOCRIT 28.8 % (36.0-47.0); HEMOGLOBIN 8.9 g/dl (12.0-15.5); MEAN CORPUSCULAR HGB CONC 30.9 g/dl (32.0-36.5); MEAN CORPUSCULAR VOLUME 106.7 fl (80.0-96.0); PLATELET COUNT, AUTOMATED 137 10^3/uL (150-450); WHITE BLOOD COUNT 4.7 10^3/uL (4.0-10.0)
== END ==
LOC: M SFHCADAM 09:15
PROVIDERS: ATTEND Physician Assistant Medical
DX: K31.819 Angiodysplasia of stomach and duodenum without bleeding (principal)

== ENCOUNTER → 2024-11-02 | Outpatient (REF) | payer BC, MEDICARE ==
[2024-11-02 13:01] LABS: HEMATOCRIT 29.3 % (36.0-47.0); HEMOGLOBIN 8.8 g/dl (12.0-15.5); MEAN CORPUSCULAR HEMOGLOBIN 31.9 pg (27.0-33.0); MEAN CORPUSCULAR VOLUME 106.2 fl (80.0-96.0); PLATELET COUNT, AUTOMATED 146 10^3/uL (150-450); RED BLOOD COUNT 2.76 10^6/uL (4.00-5.40); WHITE BLOOD COUNT 4.7 10^3/uL (4.0-10.0)
[2024-11-02 13:12] LABS: INR 1.45; PROTHROMBIN TIME 17.9 SECONDS (12.5-14.5)
[2024-11-02 13:13] LABS: ALBUMIN 3.2 G/DL (3.2-5.2); ALKALINE PHOSPHATASE 135 U/L (35-104); ALT/SGPT 37 U/L (7.0-40); AST/SGOT 45 U/L (<34); BILIRUBIN,TOTAL 0.7 MG/DL (0.3-1.2); BLOOD UREA NITROGEN 23 MG/DL (9-23); CALCIUM LEVEL 8.5 MG/DL (8.3-10.6); CARBON DIOXIDE LEVEL 26 MMOL/L (20-31); CHLORIDE LEVEL 109 MMOL/L (98-107); CREATININE FOR GFR 0.85 MG/DL (0.55-1.30); GLOMERULAR FILTRATION RATE > 60.0 (>39); GLUCOSE, FASTING 131 MG/DL (74-106); POTASSIUM SERUM 4.7 MMOL/L (3.5-5.1); SODIUM LEVEL 144 MMOL/L (136-145); TOTAL PROTEIN 6.6 G/DL (5.7-8.2)
== END ==
LOC: M LABDRWAD 12:43
PROVIDERS: ATTEND Nurse Practitioner Family
DX: Q27.30 Arteriovenous malformation, site unspecified (principal); D64.9 Anemia, unspecified; K25.9 Gastric ulcer, unspecified as acute or chronic, without hemorrhage or perforation; K74.60 Unspecified cirrhosis of liver

== ENCOUNTER → 2024-11-09 | Outpatient (REF) | payer BC, MEDICARE ==
[2024-11-09 14:42] LABS: HEMOGLOBIN 9.5 g/dl (12.0-15.5); MEAN CORPUSCULAR HEMOGLOBIN 32.9 pg (27.0-33.0); MEAN CORPUSCULAR HGB CONC 30.6 g/dl (32.0-36.5); MEAN CORPUSCULAR VOLUME 107.3 fl (80.0-96.0); PLATELET COUNT, AUTOMATED 117 10^3/uL (150-450); RED BLOOD COUNT 2.89 10^6/uL (4.00-5.40); WHITE BLOOD COUNT 4.5 10^3/uL (4.0-10.0)
== END ==
LOC: M SFHCADAM 09:10
PROVIDERS: ATTEND Physician Assistant Medical
DX: K31.819 Angiodysplasia of stomach and duodenum without bleeding (principal)

== ENCOUNTER → 2024-11-12 | Outpatient (CLI) | payer BC, MEDICARE | LOC: M PAIN 14:45 | PROVIDERS: ATTEND Nurse Practitioner Family | DX: M79.18 Myalgia, other site (principal); G89.29 Other chronic pain; I48.91 Unspecified atrial fibrillation; I12.9 Hypertensive chronic kidney disease with stage 1 through stage 4 chronic kidney disease, or unspecified chronic kidney disease; J45.20 Mild intermittent asthma, uncomplicated; E11.22 Type 2 diabetes mellitus with diabetic chronic kidney disease; N18.30 Chronic kidney disease, stage 3 unspecified; Z79.84 Long term (current) use of oral hypoglycemic drugs; Z79.899 Other long term (current) drug therapy; Z88.6 Allergy status to analgesic agent; Z88.1 Allergy status to other antibiotic agents ==

== ENCOUNTER → 2024-11-17 | Outpatient (REF) | payer BC, MEDICARE ==
[2024-11-17 18:35] LABS: HEMATOCRIT 29.8 % (36.0-47.0); HEMOGLOBIN 9.5 g/dl (12.0-15.5); MEAN CORPUSCULAR HEMOGLOBIN 33.3 pg (27.0-33.0); MEAN CORPUSCULAR HGB CONC 31.9 g/dl (32.0-36.5); MEAN CORPUSCULAR VOLUME 104.6 fl (80.0-96.0); PLATELET COUNT, AUTOMATED 115 10^3/uL (150-450); RED BLOOD COUNT 2.85 10^6/uL (4.00-5.40); WHITE BLOOD COUNT 4.7 10^3/uL (4.0-10.0)
== END ==
LOC: M SFHCADAM 14:38
PROVIDERS: ATTEND Physician Assistant Medical
DX: K31.819 Angiodysplasia of stomach and duodenum without bleeding (principal)

== ENCOUNTER → 2024-11-23 | Outpatient (REF) | payer BC, MEDICARE ==
[2024-11-23 14:00] LABS: HEMATOCRIT 31.6 % (36.0-47.0); HEMOGLOBIN 9.8 g/dl (12.0-15.5); MEAN CORPUSCULAR HEMOGLOBIN 32.6 pg (27.0-33.0); PLATELET COUNT, AUTOMATED 150 10^3/uL (150-450); RED BLOOD COUNT 3.01 10^6/uL (4.00-5.40); WHITE BLOOD COUNT 5.2 10^3/uL (4.0-10.0)
== END ==
LOC: M SFHCADAM 09:29
PROVIDERS: ATTEND Physician Assistant Medical
DX: K31.819 Angiodysplasia of stomach and duodenum without bleeding (principal)

== ENCOUNTER → 2024-11-25 | Outpatient (CLI) | payer BC, MEDICARE | LOC: M RAD 10:03 | PROVIDERS: ATTEND Nurse Practitioner Family | DX: K74.60 Unspecified cirrhosis of liver (principal); Q27.30 Arteriovenous malformation, site unspecified; D64.9 Anemia, unspecified; K25.9 Gastric ulcer, unspecified as acute or chronic, without hemorrhage or perforation; K80.80 Other cholelithiasis without obstruction ==

== ENCOUNTER → 2024-12-07 | Outpatient (REF) | payer BC, MEDICARE ==
[2024-12-07 15:22] LABS: HEMATOCRIT 27.7 % (36.0-47.0); HEMOGLOBIN 8.8 g/dl (12.0-15.5); MEAN CORPUSCULAR HEMOGLOBIN 33.1 pg (27.0-33.0); MEAN CORPUSCULAR HGB CONC 31.8 g/dl (32.0-36.5); MEAN CORPUSCULAR VOLUME 104.1 fl (80.0-96.0); PLATELET COUNT, AUTOMATED 121 10^3/uL (150-450); RED BLOOD COUNT 2.66 10^6/uL (4.00-5.40)
== END ==
LOC: M SFHCADAM 09:28
PROVIDERS: ATTEND Physician Assistant Medical
DX: K31.819 Angiodysplasia of stomach and duodenum without bleeding (principal); D63.8 Anemia in other chronic diseases classified elsewhere

== ENCOUNTER → 2024-12-07 | Outpatient (REF) | payer BC, MEDICARE ==
[2024-12-07 15:27] LABS: BILIRUBIN,TOTAL 0.6 MG/DL (0.3-1.2); CALCIUM LEVEL 8.5 MG/DL (8.3-10.6); CREATININE FOR GFR 1.07 MG/DL (0.55-1.30); GLOMERULAR FILTRATION RATE 53.2 (>39); POTASSIUM SERUM 4.2 MMOL/L (3.5-5.1); TOTAL PROTEIN 6.6 G/DL (5.7-8.2)
== END ==
LOC: M LABDRWAD 12:54
PROVIDERS: ATTEND Nurse Practitioner Family
DX: K76.9 Liver disease, unspecified (principal)

== ENCOUNTER → 2024-12-11 | Outpatient (CLI) | payer BC ==
[~2024-12-11] MED LIST changes: +ISOVUE-370 76% 100ML VIAL As Ordered ONE
== END ==
LOC: M RAD 14:20
PROVIDERS: ATTEND Nurse Practitioner Family
DX: K76.9 Liver disease, unspecified (principal); K80.20 Calculus of gallbladder without cholecystitis without obstruction
CPT/HCPCS: 74160; Q9967

== ENCOUNTER → 2024-12-14 | Outpatient (REF) | payer BC, MEDICARE ==
[~2024-12-14] MED LIST changes: -ISOVUE-370 76% 100ML VIAL As Ordered ONE
[2024-12-14 13:40] LABS: HEMATOCRIT 25.3 % (36.0-47.0); MEAN CORPUSCULAR HEMOGLOBIN 32.8 pg (27.0-33.0); MEAN CORPUSCULAR HGB CONC 31.6 g/dl (32.0-36.5); MEAN CORPUSCULAR VOLUME 103.7 fl (80.0-96.0); PLATELET COUNT, AUTOMATED 109 10^3/uL (150-450); RED BLOOD COUNT 2.44 10^6/uL (4.00-5.40); WHITE BLOOD COUNT 3.5 10^3/uL (4.0-10.0)
== END ==
LOC: M SFHCADAM 09:10
PROVIDERS: ATTEND Physician Assistant Medical
DX: K31.819 Angiodysplasia of stomach and duodenum without bleeding (principal); D63.8 Anemia in other chronic diseases classified elsewhere

== ENCOUNTER → 2024-12-21 | Outpatient (REF) | payer BC, MEDICARE ==
[2024-12-21 14:07] LABS: HEMATOCRIT 26.7 % (36.0-47.0); HEMOGLOBIN 8.4 g/dl (12.0-15.5); MEAN CORPUSCULAR HEMOGLOBIN 33.1 pg (27.0-33.0); MEAN CORPUSCULAR HGB CONC 31.5 g/dl (32.0-36.5); MEAN CORPUSCULAR VOLUME 105.1 fl (80.0-96.0); PLATELET COUNT, AUTOMATED 107 10^3/uL (150-450); RED BLOOD COUNT 2.54 10^6/uL (4.00-5.40); WHITE BLOOD COUNT 4.4 10^3/uL (4.0-10.0)
== END ==
LOC: M SFHCADAM 09:26
PROVIDERS: ATTEND Physician Assistant Medical
DX: K31.819 Angiodysplasia of stomach and duodenum without bleeding (principal)

== ENCOUNTER → 2024-12-28 | Outpatient (REF) | payer BC, MEDICARE ==
[2024-12-28 13:44] LABS: HEMATOCRIT 26.9 % (36.0-47.0); HEMOGLOBIN 8.4 g/dl (12.0-15.5); MEAN CORPUSCULAR HEMOGLOBIN 33.1 pg (27.0-33.0); MEAN CORPUSCULAR HGB CONC 31.2 g/dl (32.0-36.5); MEAN CORPUSCULAR VOLUME 105.9 fl (80.0-96.0); PLATELET COUNT, AUTOMATED 135 10^3/uL (150-450); RED BLOOD COUNT 2.54 10^6/uL (4.00-5.40)
== END ==
LOC: M SFHCADAM 09:01
PROVIDERS: ATTEND Physician Assistant Medical
DX: K31.819 Angiodysplasia of stomach and duodenum without bleeding (principal); D63.8 Anemia in other chronic diseases classified elsewhere

== ENCOUNTER → 2025-01-11 | Outpatient (REF) | payer BC, MEDICARE ==
[2025-01-11 13:29] LABS: HEMATOCRIT 25.6 % (36.0-47.0); HEMOGLOBIN 7.8 g/dl (12.0-15.5); MEAN CORPUSCULAR HEMOGLOBIN 32.4 pg (27.0-33.0); MEAN CORPUSCULAR HGB CONC 30.5 g/dl (32.0-36.5); MEAN CORPUSCULAR VOLUME 106.2 fl (80.0-96.0); PLATELET COUNT, AUTOMATED 130 10^3/uL (150-450); RED BLOOD COUNT 2.41 10^6/uL (4.00-5.40); WHITE BLOOD COUNT 3.7 10^3/uL (4.0-10.0)
== END ==
LOC: M SFHCADAM 08:55
PROVIDERS: ATTEND Physician Assistant Medical
DX: K31.819 Angiodysplasia of stomach and duodenum without bleeding (principal)

== ENCOUNTER → 2025-01-18 | Outpatient (REF) | payer BC, MEDICARE ==
[2025-01-18 13:54] LABS: HEMATOCRIT 22.6 % (36.0-47.0); MEAN CORPUSCULAR HEMOGLOBIN 32.9 pg (27.0-33.0); MEAN CORPUSCULAR HGB CONC 30.1 g/dl (32.0-36.5); MEAN CORPUSCULAR VOLUME 109.2 fl (80.0-96.0); PLATELET COUNT, AUTOMATED 104 10^3/uL (150-450); RED BLOOD COUNT 2.07 10^6/uL (4.00-5.40); WHITE BLOOD COUNT 3.5 10^3/uL (4.0-10.0)
[2025-01-18 14:24] LABS: HEMOGLOBIN 6.8 g/dl (12.0-15.5)
== END ==
LOC: M SFHCADAM 09:19
PROVIDERS: ATTEND Physician Assistant Medical
DX: K31.819 Angiodysplasia of stomach and duodenum without bleeding (principal); D63.8 Anemia in other chronic diseases classified elsewhere

== ENCOUNTER 2025-01-19 12:54 | Outpatient (CLI) | payer BC ==
[~2025-01-19] VITALS: Ht 162.6 cm; Wt 108.2 kg
[2025-01-19] MEDS: diphenhydrAMINE 25MG CAP PO ONE (13:30)
[2025-01-19 13:55] VITALS: BP 134/88; TEMP 97.3; O2SAT 99
[2025-01-19 14:05] VITALS: BP 119/56; TEMP 98.2; O2SAT 96
[2025-01-19 15:05] VITALS: BP 140/78; TEMP 98.1; O2SAT 99
[2025-01-19 16:15] VITALS: BP 152/62; TEMP 97.8; O2SAT 99
== END 2025-01-19 16:30 | disposition home or self-care (01) ==
LOC: M INFU 12:54
PROVIDERS: ATTEND Family Medicine
DX: D64.9 Anemia, unspecified (principal); Z88.1 Allergy status to other antibiotic agents; Z88.6 Allergy status to analgesic agent; Z88.8 Allergy status to other drugs, medicaments and biological substances
CPT/HCPCS: 36430; P9016

== ENCOUNTER → 2025-01-19 | Outpatient (CLI) | payer BC | LOC: M LAB 10:19 | PROVIDERS: ATTEND Family Medicine | DX: D64.9 Anemia, unspecified (principal) ==

== ENCOUNTER 2025-01-20 09:00 | Outpatient (CLI) | payer BC ==
[~2025-01-20] VITALS: Ht 162.6 cm; Wt 108.1 kg
[~2025-01-20 09:00] MED LIST changes: +NS (Normal Saline) 0.9% 250 ML IV ONE
[2025-01-20 09:10] VITALS: BP 145/64; O2SAT 97
[2025-01-20] MEDS: diphenhydrAMINE 25MG CAP PO ONE (09:17)
[2025-01-20 09:45] VITALS: BP 124/60; TEMP 97.5; O2SAT 100
[2025-01-20 10:45] VITALS: BP 196/82; TEMP 97.3; O2SAT 98
[2025-01-20 11:30] VITALS: BP 185/82; TEMP 97.6; O2SAT 97
== END 2025-01-20 11:30 ==
LOC: M INFU 09:00
PROVIDERS: ATTEND Family Medicine
DX: D64.9 Anemia, unspecified (principal); Z88.1 Allergy status to other antibiotic agents; Z88.6 Allergy status to analgesic agent; Z88.8 Allergy status to other drugs, medicaments and biological substances
CPT/HCPCS: 36430; P9016

== ENCOUNTER → 2025-01-26 | Outpatient (REF) | payer BC, MEDICARE ==
[~2025-01-26] MED LIST changes: -NS (Normal Saline) 0.9% 250 ML IV ONE
[2025-01-26 14:21] LABS: BASO % 0.9 % (0.0-1.0); EOS # 0.2 10^3/uL (0.0-0.5); EOS % 7.1 % (0.0-3.0); HEMOGLOBIN 7.6 g/dl (12.0-15.5); LYMPH % 29.1 % (24.0-44.0); MEAN CORPUSCULAR HEMOGLOBIN 31.4 pg (27.0-33.0); MEAN CORPUSCULAR HGB CONC 30.4 g/dl (32.0-36.5); MEAN CORPUSCULAR VOLUME 103.3 fl (80.0-96.0); MONO # 0.6 10^3/uL (0.0-0.8); MONO % 16.9 % (2.0-8.0); NEUTROPHILS # 1.5 10^3/uL (1.5-8.5); NEUTROPHILS % 45.7 % (36.0-66.0); PLATELET COUNT, AUTOMATED 108 10^3/uL (150-450); RED BLOOD COUNT 2.42 10^6/uL (4.00-5.40); WHITE BLOOD COUNT 3.4 10^3/uL (4.0-10.0)
== END ==
LOC: M SFHCADAM 08:37
PROVIDERS: ATTEND Physician Assistant Medical
DX: D64.9 Anemia, unspecified (principal)

== ENCOUNTER → 2025-01-28 | Outpatient (CLI) | payer BC, MEDICARE | LOC: M PLARAD 12:40 | PROVIDERS: ATTEND Pain Medicine Pain Medicine | DX: M54.2 Cervicalgia (principal); M47.816 Spondylosis without myelopathy or radiculopathy, lumbar region; M25.78 Osteophyte, vertebrae; M47.812 Spondylosis without myelopathy or radiculopathy, cervical region; M48.02 Spinal stenosis, cervical region ==

== ENCOUNTER → 2025-02-01 | Outpatient (REF) | payer BC, MEDICARE ==
[2025-02-01 13:55] LABS: BASO % 0.7 % (0.0-1.0); BILIRUBIN,TOTAL 0.7 MG/DL (0.3-1.2); CALCIUM LEVEL 8.6 MG/DL (8.3-10.6); CHOLESTEROL RISK RATIO 2.34 (<5); CREATININE FOR GFR 1.03 MG/DL (0.55-1.30); EOS # 0.3 10^3/uL (0.0-0.5); EOS % 6.3 % (0.0-3.0); GLOMERULAR FILTRATION RATE 56.7 (>39); HDL CHOLESTEROL 37.9 MG/DL (>40); HEMATOCRIT 24.6 % (36.0-47.0); HEMOGLOBIN 7.3 g/dl (12.0-15.5); LDL CHOLESTEROL 29.9 MG/DL (<100); LYMPH % 25.4 % (24.0-44.0); MEAN CORPUSCULAR HEMOGLOBIN 31.9 pg (27.0-33.0); MEAN CORPUSCULAR HGB CONC 29.7 g/dl (32.0-36.5); MEAN CORPUSCULAR VOLUME 107.4 fl (80.0-96.0); MONO # 0.7 10^3/uL (0.0-0.8); MONO % 17.8 % (2.0-8.0); NEUTROPHILS % 49.6 % (36.0-66.0); NON-HDL-C 51.1 MG/DL; PLATELET COUNT, AUTOMATED 128 10^3/uL (150-450); POTASSIUM SERUM 4.4 MMOL/L (3.5-5.1); RED BLOOD COUNT 2.29 10^6/uL (4.00-5.40); TOTAL PROTEIN 6.2 G/DL (5.7-8.2); WHITE BLOOD COUNT 4.1 10^3/uL (4.0-10.0)
[2025-02-01 13:56] LABS: FREE T4 1.06 NG/DL (0.89-1.76); THYROID STIMULATING HORMONE 1.983 uIU/ML (0.55-4.78)
[2025-02-01 13:58] LABS: TOTAL 25(OH) VITAMIN D 62.3 NG/ML (20.0-100.0)
[2025-02-01 14:42] LABS: HEMOGLOBIN A1c 6.5 % (4.0-6.0)
== END ==
LOC: M SFHCADAM 09:07
PROVIDERS: ATTEND Physician Assistant Medical
DX: K31.819 Angiodysplasia of stomach and duodenum without bleeding (principal); E11.22 Type 2 diabetes mellitus with diabetic chronic kidney disease; I12.9 Hypertensive chronic kidney disease with stage 1 through stage 4 chronic kidney disease, or unspecified chronic kidney disease; N18.31 Chronic kidney disease, stage 3a; D50.0 Iron deficiency anemia secondary to blood loss (chronic); M25.50 Pain in unspecified joint; E55.9 Vitamin D deficiency, unspecified

== ENCOUNTER → 2025-02-08 | Outpatient (REF) | payer BC, MEDICARE ==
[2025-02-08 14:16] LABS: HEMATOCRIT 23.4 % (36.0-47.0); HEMOGLOBIN 7.1 g/dl (12.0-15.5); MEAN CORPUSCULAR HEMOGLOBIN 32.6 pg (27.0-33.0); MEAN CORPUSCULAR HGB CONC 30.3 g/dl (32.0-36.5); MEAN CORPUSCULAR VOLUME 107.3 fl (80.0-96.0); PLATELET COUNT, AUTOMATED 130 10^3/uL (150-450); RED BLOOD COUNT 2.18 10^6/uL (4.00-5.40); WHITE BLOOD COUNT 4.6 10^3/uL (4.0-10.0)
[2025-02-08 14:43] LABS: CALCIUM LEVEL 8.4 MG/DL (8.3-10.6); CREATININE FOR GFR 1.11 MG/DL (0.55-1.30); GLOMERULAR FILTRATION RATE 51.8 (>39); POTASSIUM SERUM 3.9 MMOL/L (3.5-5.1)
== END ==
LOC: M SFHCADAM 09:02
PROVIDERS: ATTEND Physician Assistant Medical
DX: D64.9 Anemia, unspecified (principal)

== ENCOUNTER → 2025-02-09 | Outpatient (CLI) | payer BC ==
[2025-02-09 17:54] LABS: HEMATOCRIT 22.6 % (36.0-47.0); MEAN CORPUSCULAR HEMOGLOBIN 32.1 pg (27.0-33.0); MEAN CORPUSCULAR HGB CONC 30.5 g/dl (32.0-36.5); MEAN CORPUSCULAR VOLUME 105.1 fl (80.0-96.0); PLATELET COUNT, AUTOMATED 118 10^3/uL (150-450); RED BLOOD COUNT 2.15 10^6/uL (4.00-5.40); WHITE BLOOD COUNT 3.9 10^3/uL (4.0-10.0)
[2025-02-09 18:39] LABS: HEMOGLOBIN 6.9 g/dl (12.0-15.5)
== END ==
LOC: M LAB 17:00
PROVIDERS: ATTEND Physician Assistant Medical
DX: K31.819 Angiodysplasia of stomach and duodenum without bleeding (principal); D64.9 Anemia, unspecified

== ENCOUNTER 2025-02-10 08:18 | Outpatient (CLI) | payer BC ==
[~2025-02-10] VITALS: Ht 162.6 cm; Wt 109.0 kg
[2025-02-10 08:30] VITALS: BP 151/65; O2SAT 95
[2025-02-10] MEDS: diphenhydrAMINE 25MG CAP PO ONE (09:03)
[2025-02-10 09:30] VITALS: BP 130/58; TEMP 97.3; O2SAT 98
[2025-02-10 10:45] VITALS: BP 145/63; TEMP 97.8; O2SAT 99
[2025-02-10 11:05] VITALS: BP 144/74; O2SAT 97
== END 2025-02-10 11:05 | disposition home or self-care (01) ==
LOC: M INFU 08:18
PROVIDERS: ATTEND Physician Assistant Medical
DX: D64.9 Anemia, unspecified (principal); Z88.1 Allergy status to other antibiotic agents; Z88.6 Allergy status to analgesic agent; Z88.8 Allergy status to other drugs, medicaments and biological substances
CPT/HCPCS: 36430; P9016

== ENCOUNTER → 2025-02-15 | Outpatient (REF) | payer BC, MEDICARE ==
[2025-02-15 14:20] LABS: HEMATOCRIT 28.1 % (36.0-47.0); HEMOGLOBIN 8.6 g/dl (12.0-15.5); MEAN CORPUSCULAR HEMOGLOBIN 31.3 pg (27.0-33.0); MEAN CORPUSCULAR HGB CONC 30.6 g/dl (32.0-36.5); MEAN CORPUSCULAR VOLUME 102.2 fl (80.0-96.0); PLATELET COUNT, AUTOMATED 125 10^3/uL (150-450); RED BLOOD COUNT 2.75 10^6/uL (4.00-5.40)
== END ==
LOC: M SFHCADAM 09:25
PROVIDERS: ATTEND Physician Assistant Medical
DX: K31.819 Angiodysplasia of stomach and duodenum without bleeding (principal)

== ENCOUNTER → 2025-02-16 | Outpatient (CLI) | payer BC | LOC: M RAD 12:10 | PROVIDERS: ATTEND Physician Assistant Medical | DX: R60.0 Localized edema (principal) ==

== ENCOUNTER → 2025-02-17 | Outpatient (REF) | payer BC, MEDICARE | LOC: M SFHCADAM 14:07 | PROVIDERS: ATTEND Physician Assistant Medical | DX: R19.5 Other fecal abnormalities (principal); R10.30 Lower abdominal pain, unspecified; Z92.29 Personal history of other drug therapy ==

== ENCOUNTER → 2025-05-12 | Outpatient (REF) | payer BC, MEDICARE ==
[~2025-05-12] MED LIST changes: +ACET-1515 PO; -ACET650T15 PO; +CARV12.5 PO; +ENAL1TAB48 PO; +FARX1TAB3 PO; +LISI40TA10 PO; -LISI40TA4 PO; +OMEP40CA5 PO; +SPIR50TA4 PO; +SUCR1TAB56 PO; +TORS20TA2 PO
[2025-05-12 18:43] LABS: ALT/SGPT 44.0 U/L (7.0-40); AST/SGOT 54.0 U/L (<34); BASO # 0.0 10^3/uL (0.0-0.2); BASO % 0.8 % (0.0-1.0); CALCIUM LEVEL 8.6 MG/DL (8.3-10.6); CARBON DIOXIDE LEVEL 25.0 MMOL/L (20-31); CHLORIDE LEVEL 107.0 MMOL/L (98-107); CREATININE FOR GFR 0.97 MG/DL (0.55-1.30); EOS # 0.1 10^3/uL (0.0-0.5); EOS % 3.4 % (0.0-3.0); GLOMERULAR FILTRATION RATE 60.6 (>39); IRON (FE) 175.0 UG/DL (50-170); LYMPH # 1.0 10^3/uL (1.5-5.0); LYMPH % 26.4 % (24.0-44.0); MONO # 0.6 10^3/uL (0.0-0.8); MONO % 15.5 % (2.0-8.0); NEUTROPHILS # 2.1 10^3/uL (1.5-8.5); NEUTROPHILS % 53.6 % (36.0-66.0); PERCENT SATURATION 46.4 % (13.2-45.0); PLATELET COUNT, AUTOMATED 109 10^3/uL (150-450); POTASSIUM SERUM 4.3 MMOL/L (3.5-5.1); SODIUM LEVEL 142.0 MMOL/L (136-145)
[2025-05-12 18:44] LABS: TOTAL 25(OH) VITAMIN D 63.0 NG/ML (20.0-100.0)
[2025-05-12 18:45] LABS: FREE T4 1.11 NG/DL (0.89-1.76); VITAMIN B12 LEVEL 851.0 PG/ML (211-911)
[2025-05-12 18:48] LABS: ESTIMATED AVERAGE GLUCOSE 137.0 MG/DL (60-110)
== END ==
LOC: M SFHCADAM 11:28
PROVIDERS: ATTEND Physician Assistant Medical
DX: K31.819 Angiodysplasia of stomach and duodenum without bleeding (principal); D63.8 Anemia in other chronic diseases classified elsewhere; I10 Essential (primary) hypertension; I48.91 Unspecified atrial fibrillation; E78.2 Mixed hyperlipidemia; E11.22 Type 2 diabetes mellitus with diabetic chronic kidney disease; N18.31 Chronic kidney disease, stage 3a; R60.0 Localized edema; E55.9 Vitamin D deficiency, unspecified

== ENCOUNTER → 2025-05-27 | Outpatient (CLI) | payer BC, MEDICARE ==
[2025-05-27 12:43] LABS: PLATELET COUNT, AUTOMATED 91 10^3/uL (150-450)
[2025-05-27 12:46] LABS: INR 1.38
== END ==
LOC: M LABDRWAD 08:44
PROVIDERS: ATTEND Nurse Practitioner Family
DX: M47.816 Spondylosis without myelopathy or radiculopathy, lumbar region (principal); M54.59 Other low back pain

== ENCOUNTER → 2025-06-14 | Outpatient (CLI) | payer BC, MEDICARE ==
[2025-06-14 12:49] LABS: PLATELET COUNT, AUTOMATED 87 10^3/uL (150-450)
[2025-06-14 12:58] LABS: ALT/SGPT 37.0 U/L (7.0-40); AST/SGOT 44.0 U/L (<34); CALCIUM LEVEL 8.4 MG/DL (8.3-10.6); CARBON DIOXIDE LEVEL 26.0 MMOL/L (20-31); CHLORIDE LEVEL 114.0 MMOL/L (98-107); CREATININE FOR GFR 1.06 MG/DL (0.55-1.30); GLOMERULAR FILTRATION RATE 54.4 (>39); POTASSIUM SERUM 4.9 MMOL/L (3.5-5.1); SODIUM LEVEL 144.0 MMOL/L (136-145)
[2025-06-14 13:01] LABS: INR 1.34
== END ==
LOC: M LABDRWAD 09:07
PROVIDERS: ATTEND Internal Medicine Gastroenterology
DX: D64.9 Anemia, unspecified (principal); K74.60 Unspecified cirrhosis of liver; Q27.30 Arteriovenous malformation, site unspecified

== ENCOUNTER → 2025-07-12 | Outpatient (REF) | payer BC, MEDICARE ==
[2025-07-12 16:42] LABS: PLATELET COUNT, AUTOMATED 113 10^3/uL (150-450)
[2025-07-12 17:14] LABS: INR 1.48
== END ==
LOC: M LABDRWAD 16:35
PROVIDERS: ATTEND Anesthesiology Pain Medicine
DX: Z01.812 Encounter for preprocedural laboratory examination (principal); Z86.19 Personal history of other infectious and parasitic diseases

== ENCOUNTER → 2025-08-20 | Outpatient (REF) | payer BC, MEDICARE ==
[2025-08-20 14:49] LABS: BASO # 0.0 10^3/uL (0.0-0.2); BASO % 0.8 % (0.0-1.0); EOS # 0.2 10^3/uL (0.0-0.5); EOS % 5.4 % (0.0-3.0); LYMPH # 1.1 10^3/uL (1.5-5.0); LYMPH % 27.6 % (24.0-44.0); MONO # 0.7 10^3/uL (0.0-0.8); MONO % 18.1 % (2.0-8.0); NEUTROPHILS # 1.9 10^3/uL (1.5-8.5); NEUTROPHILS % 47.8 % (36.0-66.0); PLATELET COUNT, AUTOMATED 104 10^3/uL (150-450)
[2025-08-20 14:55] LABS: ALT/SGPT 36.0 U/L (7.0-40); AST/SGOT 48.0 U/L (<34); CALCIUM LEVEL 8.7 MG/DL (8.3-10.6); CARBON DIOXIDE LEVEL 26.0 MMOL/L (20-31); CHLORIDE LEVEL 110.0 MMOL/L (98-107); CHOLESTEROL LEVEL 107.0 MG/DL (<200); CHOLESTEROL RISK RATIO 1.83 (<5); CREATININE FOR GFR 1.18 MG/DL (0.55-1.30); GLOMERULAR FILTRATION RATE 47.9 (>39); IRON (FE) 82.0 UG/DL (50-170); LDL CHOLESTEROL 32.6 MG/DL (<100); NON-HDL-C 48.8 MG/DL; PERCENT SATURATION 22.5 % (13.2-45.0); POTASSIUM SERUM 4.7 MMOL/L (3.5-5.1); SODIUM LEVEL 144.0 MMOL/L (136-145); TRIGLYCERIDES LEVEL 81.0 MG/DL (<150)
[2025-08-20 14:56] LABS: FREE T4 0.98 NG/DL (0.89-1.76)
[2025-08-20 14:57] LABS: TOTAL 25(OH) VITAMIN D 59.9 NG/ML (20.0-100.0)
[2025-08-20 15:09] LABS: ESTIMATED AVERAGE GLUCOSE 143.0 MG/DL (60-110)
[2025-08-20 15:19] LABS: CREATININE, URINE 135.8 MG/DL; MALB URINE SIEMENS < 3.0 MG/L
== END ==
LOC: M SFHCDERM 09:52
PROVIDERS: ATTEND Physician Assistant Medical
DX: I48.91 Unspecified atrial fibrillation (principal); E55.9 Vitamin D deficiency, unspecified; E78.2 Mixed hyperlipidemia; E11.22 Type 2 diabetes mellitus with diabetic chronic kidney disease

== ENCOUNTER 2025-08-30 17:14 | Emergency (ER) | payer BC, MEDICARE ==
[~2025-08-30] VITALS: Ht 162.6 cm; Wt 119.6 kg
[2025-08-30 17:17] VITALS: TEMP 96.5
[2025-08-30 18:19] LABS: BASO # 0.0 10^3/uL (0.0-0.2); BASO % 1.1 % (0.0-1.0); EOS # 0.3 10^3/uL (0.0-0.5); EOS % 6.7 % (0.0-3.0); LYMPH # 0.9 10^3/uL (1.5-5.0); LYMPH % 24.1 % (24.0-44.0); MONO # 0.6 10^3/uL (0.0-0.8); MONO % 15.5 % (2.0-8.0); NEUTROPHILS # 2.0 10^3/uL (1.5-8.5); NEUTROPHILS % 52.3 % (36.0-66.0)
[2025-08-30 18:26] LABS: PLATELET COUNT, AUTOMATED 94 10^3/uL (150-450)
[2025-08-30 18:45] LABS: ALT/SGPT 25.0 U/L (7.0-40); AST/SGOT 43.0 U/L (<34); CALCIUM LEVEL 7.9 MG/DL (8.3-10.6); CARBON DIOXIDE LEVEL 23.0 MMOL/L (20-31); CHLORIDE LEVEL 112.0 MMOL/L (98-107); CREATININE FOR GFR 1.37 MG/DL (0.55-1.30); GLOMERULAR FILTRATION RATE 40.0 (>39); POTASSIUM SERUM 4.1 MMOL/L (3.5-5.1); SODIUM LEVEL 147.0 MMOL/L (136-145)
[2025-08-30 18:48] LABS: FREE T4 0.97 NG/DL (0.89-1.76)
[2025-08-30 18:51] LABS: INR 1.47
[2025-08-30 19:40] LABS: MAGNESIUM LEVEL 2.2 MG/DL (1.8-2.4)
[2025-08-30 20:41] LABS: INR 1.44; KETONE, URINE AUTO RFX NEGATIVE (NEGATIVE); LEUKOCYTE ESTERASE UR AUTO RFX NEGATIVE (NEGATIVE); NITRITE, URINE AUTO RFX NEGATIVE (NEGATIVE); RBC, URINE AUTO RFX 0 /HPF (0-3); SQUAM EPITHELIAL CELL UR AURFX 0 /HPF (0-6); WBC, URINE AUTO RFX 0 /HPF (0-3)
[2025-08-30 21:14] VITALS: O2SAT 93
[2025-08-30] MEDS ORDERED: NYST1POW3 TOP (22:16)
[2025-08-30 22:31] VITALS: BP 140/63; O2SAT 97
== END 2025-08-30 22:49 | disposition home or self-care (01) ==
LOC: M ED 17:14
DX: R19.00 Intra-abdominal and pelvic swelling, mass and lump, unspecified site (principal); R16.1 Splenomegaly, not elsewhere classified; K80.20 Calculus of gallbladder without cholecystitis without obstruction; K57.30 Diverticulosis of large intestine without perforation or abscess without bleeding; I11.0 Hypertensive heart disease with heart failure; E11.9 Type 2 diabetes mellitus without complications; K21.9 Gastro-esophageal reflux disease without esophagitis; E78.5 Hyperlipidemia, unspecified; E55.9 Vitamin D deficiency, unspecified; Z79.899 Other long term (current) drug therapy; Z88.1 Allergy status to other antibiotic agents; Z88.6 Allergy status to analgesic agent

== ENCOUNTER 2025-09-07 16:35 | Inpatient (IN) | payer MEDICARE, BC ==
[~2025-09-07] VITALS: Ht 162.6 cm; Wt 112.9 kg
[~2025-09-07 16:35] MED LIST changes: +NYST1POW3 TOP
[2025-09-07 18:59] LABS: BASO # 0.0 10^3/uL (0.0-0.2); BASO % 1.0 % (0.0-1.0); EOS # 0.2 10^3/uL (0.0-0.5); EOS % 5.2 % (0.0-3.0); LYMPH # 0.9 10^3/uL (1.5-5.0); LYMPH % 22.3 % (24.0-44.0); MONO # 0.6 10^3/uL (0.0-0.8); MONO % 15.5 % (2.0-8.0); NEUTROPHILS # 2.1 10^3/uL (1.5-8.5); NEUTROPHILS % 55.5 % (36.0-66.0); PLATELET COUNT, AUTOMATED 107 10^3/uL (150-450)
[2025-09-07 19:20] LABS: INR 1.54
[2025-09-07 19:31] LABS: ALT/SGPT 26.0 U/L (7.0-40); AST/SGOT 43.0 U/L (<34); CALCIUM LEVEL 8.7 MG/DL (8.3-10.6); CARBON DIOXIDE LEVEL 24.0 MMOL/L (20-31); CHLORIDE LEVEL 108.0 MMOL/L (98-107); CK-MB VALUE MASS 2.2 NG/ML (<3.6); CPK CREATINE PHOSPHOKINASE 68.0 U/L (34-145); CREATININE FOR GFR 0.98 MG/DL (0.55-1.30); FREE T4 1.13 NG/DL (0.89-1.76); GLOMERULAR FILTRATION RATE 59.8 (>39); MB/CK RELATIVE INDEX 3.23 (< OR =4); POTASSIUM SERUM 4.0 MMOL/L (3.5-5.1); SODIUM LEVEL 143.0 MMOL/L (136-145)
[2025-09-07] MEDS: FUROSEMIDE 40 MG/4 ML VIAL IV ONE (20:21)
[2025-09-07] MEDS ORDERED: VITA500T73 PO (22:49)
[2025-09-07] MEDS ORDERED: HOME MED LIST COMPLETE! XX SCH (22:50)
[2025-09-07] MEDS ORDERED: FLUTICASONE PROPIONATE 0.05% NASAL SPRAY 16 GM PRN (23:00)
[2025-09-07] MEDS ORDERED: MAALOX 30 ML SUSP *UDC PO PRN (23:00)
[2025-09-07] MEDS ORDERED: ALBUTEROL 90 MCG/ACT 8 GM HFA INHALER INH PRN (23:00)
[2025-09-08] VITALS (15 sets, daily range): BP systolic 105–156; BP diastolic 50–67; TEMP 97.9; O2SAT 92–96
[2025-09-08] MEDS: SIMVASTATIN 20 MG TAB PO SCH (02:23)
[2025-09-08] MEDS: FUROSEMIDE 40 MG/4 ML VIAL IV SCH ×2 (02:24→17:22)
[2025-09-08] MEDS: SUCRALFATE 1 GM TAB PO SCH (02:24)
[2025-09-08 07:30] LABS: PLATELET COUNT, AUTOMATED 109 10^3/uL (150-450)
[2025-09-08 08:00] LABS: CALCIUM LEVEL 8.6 MG/DL (8.3-10.6); CARBON DIOXIDE LEVEL 25.0 MMOL/L (20-31); CHLORIDE LEVEL 106.0 MMOL/L (98-107); CREATININE FOR GFR 1.0 MG/DL (0.55-1.30); GLOMERULAR FILTRATION RATE 58.4 (>39); MAGNESIUM LEVEL 1.8 MG/DL (1.8-2.4); POTASSIUM SERUM 3.5 MMOL/L (3.5-5.1); SODIUM LEVEL 143.0 MMOL/L (136-145)
[2025-09-08] MEDS: DOCUSATE SODIUM 100 MG CAPSULE PO SCH (10:31)
[2025-09-08] MEDS: MAGNESIUM OXIDE 400 MG TAB PO SCH (10:41)
[2025-09-08] MEDS: PANTOPRAZOLE 40MG VIAL IV SCH (10:42)
[2025-09-08] MEDS: CETIRIZINE 10 MG TAB PO SCH (10:42)
[2025-09-08] MEDS: metFORMIN 500 MG TAB PO SCH (10:42)
[2025-09-08] MEDS: NYSTATIN 100,000 UNITS/GM TOPICAL PWD 15 GM TOP SCH (10:43)
[2025-09-08] MEDS: HEPARIN SOD 5000 UNITS/ML 1 ML VIAL/SYRINGE SC SCH (10:43)
[2025-09-08] MEDS: ACETAMINOPHEN 325 MG TAB PO PRN (10:49)
[2025-09-09 06:29] LABS: BASO # 0.0 10^3/uL (0.0-0.2); BASO % 0.5 % (0.0-1.0); EOS # 0.2 10^3/uL (0.0-0.5); EOS % 3.9 % (0.0-3.0); LYMPH # 1.5 10^3/uL (1.5-5.0); LYMPH % 38.8 % (24.0-44.0); MONO # 0.8 10^3/uL (0.0-0.8); MONO % 19.9 % (2.0-8.0); NEUTROPHILS # 1.4 10^3/uL (1.5-8.5); NEUTROPHILS % 36.6 % (36.0-66.0); PLATELET COUNT, AUTOMATED 101 10^3/uL (150-450)
[2025-09-09 06:54] LABS: ALT/SGPT 20.0 U/L (7.0-40); AST/SGOT 37.0 U/L (<34); CALCIUM LEVEL 8.1 MG/DL (8.3-10.6); CARBON DIOXIDE LEVEL 28.0 MMOL/L (20-31); CHLORIDE LEVEL 107.0 MMOL/L (98-107); CREATININE FOR GFR 1.24 MG/DL (0.55-1.30); GLOMERULAR FILTRATION RATE 45.1 (>39); POTASSIUM SERUM 3.6 MMOL/L (3.5-5.1); SODIUM LEVEL 146.0 MMOL/L (136-145)
[2025-09-09 08:00] VITALS: BP 142/63; TEMP 98; O2SAT 98
[2025-09-09] MEDS: FUROSEMIDE 40 MG TAB PO SCH (09:13)
[2025-09-09 11:41] VITALS: BP 133/60; TEMP 97.6; O2SAT 96
[2025-09-09 15:51] VITALS: BP 130/58; TEMP 97.6; O2SAT 95
[2025-09-09 20:32] VITALS: BP 129/58; TEMP 97.8; O2SAT 96
[2025-09-10 00:21] VITALS: BP 116/56; TEMP 98; O2SAT 98
[2025-09-10 05:48] VITALS: BP 103/47; TEMP 97.8; O2SAT 96
[2025-09-10 06:05] LABS: PLATELET COUNT, AUTOMATED 96 10^3/uL (150-450)
[2025-09-10 06:28] LABS: CALCIUM LEVEL 8.0 MG/DL (8.3-10.6); CARBON DIOXIDE LEVEL 26 MMOL/L (20-31); CHLORIDE LEVEL 110 MMOL/L (98-107); CREATININE FOR GFR 1.12 MG/DL (0.55-1.30); GLOMERULAR FILTRATION RATE 51.0 (>39); POTASSIUM SERUM 3.8 MMOL/L (3.5-5.1); SODIUM LEVEL 147 MMOL/L (136-145)
[2025-09-10 08:26] VITALS: BP 131/62; TEMP 97.8; O2SAT 94
[2025-09-10 08:41] VITALS: BP 131/62
[2025-09-10 10:53] LABS: VITAMIN B12 LEVEL > 2000 PG/ML (211-911)
== END 2025-09-10 12:37 | disposition home or self-care (01) | DRG 432 ==
LOC: M ED 16:35 → M ED INP 22:56 → M PCU 09-08 15:54
PROVIDERS: ADMIT Student in an Organized Health Care Education/Training Program; ATTEND Internal Medicine
PROC: B246ZZZ Ultrasonography of Right and Left Heart (ICD-10-PCS; principal; 2025-09-08)
DX: K74.60 Unspecified cirrhosis of liver (principal); I50.33 Acute on chronic diastolic (congestive) heart failure; I13.0 Hypertensive heart and chronic kidney disease with heart failure and stage 1 through stage 4 chronic kidney disease, or unspecified chronic kidney disease; D61.818 Other pancytopenia; Z68.41 Body mass index [BMI] 40.0-44.9, adult; E11.22 Type 2 diabetes mellitus with diabetic chronic kidney disease; D69.6 Thrombocytopenia, unspecified; D53.9 Nutritional anemia, unspecified; D72.819 Decreased white blood cell count, unspecified; J45.909 Unspecified asthma, uncomplicated; Z96.651 Presence of right artificial knee joint; E66.01 Morbid (severe) obesity due to excess calories; N18.30 Chronic kidney disease, stage 3 unspecified; I48.91 Unspecified atrial fibrillation; E83.42 Hypomagnesemia; K21.9 Gastro-esophageal reflux disease without esophagitis; Z79.84 Long term (current) use of oral hypoglycemic drugs; Z79.899 Other long term (current) drug therapy; Z88.1 Allergy status to other antibiotic agents; Z88.6 Allergy status to analgesic agent